=== PATIENT | male | born 1955 | race Caucasian/White ===

== ENCOUNTER 2016-12-23 12:39 | Day surgery (SDC) | payer OTHER ==
[2016-12-23 11:07] VITALS: BMI 34.2
--- NOTE | 2016-12-23 15:31 | HP ---
Satellite [facility] - Chief Complaint History of Present Illness: 61 year old male ESRD with left arm AV fistula that is deep and difficult to cannulate. History Source: Patient Limitations to Obtaining History: No Limitations - Past Medical History Allergies/Adverse Reactions: Allergies Allergy/AdvReac Type Severity Reaction Status Date / Time No Known Allergies Allergy Verified 12/23/16 13:22 Cardiovascular: Yes: CAD, HTN, Hyperlipdemia Hepatobiliary: Yes: Hepatitis B Renal/: Yes: Renal Inusuff Musculoskeletal: Yes: Chronic low back pain Endocrine: Yes: Diabetes Mellitus - Current Medications Current Medications: Home Medications Medication Instructions Recorded Hum Insulin NPH/Reg Insulin Hm 20 unit SQ BID 09/25/14 [Novolin 70-30 100 Unit/ml Vial] Insulin Aspart [Novolog] 0 unit SQ QID 09/25/14 Metoprolol Tartrate [Lopressor] 25 mg PO DAILY 09/25/14 Amlodipine Besylate 10 mg PO DAILY 12/20/16 Atorvastatin Ca [Lipitor] 40 mg PO HS 12/20/16 Enalapril Maleate [Vasotec -] 10 mg PO DAILY 12/20/16 Entecavir [Baraclude] 0.5 mg PO DAILY 12/20/16 Lisinopril [Zestril] 2.5 mg PO DAILY 12/20/16 Metformin HCl 500 mg PO BID 12/20/16 Metoprolol Succinate [Toprol Xl -] 25 mg PO DAILY 12/20/16 Simvastatin 20 mg PO DAILY 12/20/16 Sitagliptin Phosphate [Januvia] 100 mg PO DAILY 12/20/16 Aspirin [ASA -] 81 mg PO DAILY 12/23/16 Tenofovir Disoproxil Fumarate 12/23/16 Satellite Physical Exam - Physical Examination Vital Signs: Vital Signs Period Temp Pulse Resp BP Sys/Palafox Pulse Ox Last 24 Hr 98.3 F 70 16 127/70 98 General Appearance: Alert & Oriented x3 ENT: Clear Lung: Clear to auscultation Heart: Regular rate & rhythm Breasts: Soft Abdomen: Soft Extremities: No edema, Other (Left arm cephalic fistula with thrill.) Satellite Impression/Plan - Impression/Plan Impression: Left arm AV fistula with difficult cannulation due to depth. Operative Procedure: Revision of AV fistula - exteriorization. Date to be Performed: 12/23/16
[2016-12-23] MEDS ORDERED: MIDAZOLAM HCL 2 MG/2 ML SINGLE DOSE VIAL ONE ×4 (15:55→17:25)
[2016-12-23] MEDS ORDERED: PROPOFOL 20 ML ONE ×4 (16:10)
[2016-12-23] MEDS ORDERED: SUCCINYLCHOLINE CHLORIDE 200 MG/10 ML VIAL ONE ×2 (16:10)
[2016-12-23] MEDS ORDERED: POVIDONE-IODINE OINTMENT 10% - 28.4 GM TUBE ONE (17:40)
--- NOTE | 2016-12-23 18:04 | OP ---
Operative Note - Note: Operative Date: 12/23/16 Pre-Operative Diagnosis: Malfunction of AV fistula Operation: Revision AV fistula left arm exteriorization, 1st stage Findings: Patent AV fistula left upper arm with perivascular induration Post-Operative Diagnosis: Same as Pre-op Surgeon: Braeden Cason Anesthesiologist/TOASTER ELEMENT REPAIRER: Ruben Acuna Anesthesia: Fractional Estimated Blood Loss (mls): 50
[2016-12-23] MEDS ORDERED: ACETAMINOPHEN 325 MG TABLET (FP) PO PRN (18:05)
[2016-12-23] MEDS ORDERED: oxyCODONE HCL 5 MG TABLET PO PRN (18:05)
[2016-12-23] MEDS ORDERED: ONDANSETRON 4 MG/2 ML VIAL IVPUSH PRN (18:06)
[2016-12-23 19:04] VITALS: BP 121/61; PULSE 57
[2016-12-23 21:44] VITALS: TEMP 98.4
--- NOTE | 2016-12-24 13:11 | OP ---
DATE OF OPERATION: 12/23/2016 SURGEON: Braeden Wilkerson MD PROCEDURE: Revision of left arm atrioventricular fistula for exteriorization. PREOPERATIVE DIAGNOSIS: Malfunctioning atrioventricular fistula. POSTOPERATIVE DIAGNOSIS: Malfunctioning atrioventricular fistula. ANESTHESIA: Fractional. ANESTHESIOLOGIST: Armand OPERATIVE FINDINGS: The left brachial artery cephalic vein fistula was patent with a diameter of approximately 6 mm. The vein was between 8-10 mm deep to the skin and proved difficult to cannulate in dialysis. OPERATIVE PROCEDURE: Following routine patient identification with site and side verification, intravenous sedation was established. The left arm was prepped with ChloraPrep. Then 1% Xylocaine was infiltrated over the AV fistula on the distal aspect of the upper arm. The fistula had been mapped preoperatively with duplex imaging. Transverse incision was made and carried down to subcutaneous tissue using cautery for hemostasis. The vein was carefully dissected and had severe inflammatory tissue and induration around it. Several small holes in the vein required repair in order to gain proximal control. A 2nd incision was made just above the antecubital crease and the vein mobilized and secured with a Vessel Loops at this level. The vein was then occluded with the Vessel Loops and proximally with a vascular clamp, and the small holes in the vein were repaired with mattress sutures of 6-0 Prolene. The vein was then further dissected from both incisions with full mobilization of the segment between the 2 incisions as well a short distance proximally and distally. All side branches of the vein were ligated and divided. Subsequent tissues were then thinned with removal of fatty tissue so the vein could lie right under the skin. The tissue underneath the vein was closed with sutures of 3-0 Vicryl. Decision was made not to mobilize the entire vein up the arm as that would leave no area for access for dialysis. A second procedure may be necessary if there is still inadequate length for access. The skin incisions were then closed with interrupted suture of 3-0 Vicryl and skin radha. Sterile dressings were applied, and the patient was taken to the recovery room in stable condition. BRAEDEN WILKERSON M.D. [id number]
== END 2016-12-23 19:08 | disposition home or self-care (01) ==
LOC: JASU-SURG 12:39
PROVIDERS: ATTEND Surgery
PROC: 05WY07Z Revision of Autologous Tissue Substitute in Upper Vein, Open Approach (ICD-10-PCS; principal; 2016-12-23 15:00)
DX: T82.41XA Breakdown (mechanical) of vascular dialysis catheter, initial encounter (principal); Y83.9 Surgical procedure, unspecified as the cause of abnormal reaction of the patient, or of later complication, without mention of misadventure at the time of the procedure; Y92.9 Unspecified place or not applicable; E78.5 Hyperlipidemia, unspecified; I12.0 Hypertensive chronic kidney disease with stage 5 chronic kidney disease or end stage renal disease; E11.22 Type 2 diabetes mellitus with diabetic chronic kidney disease; N18.6 End stage renal disease; Z99.2 Dependence on renal dialysis; Z95.1 Presence of aortocoronary bypass graft
CPT/HCPCS: 36415; 84132; 94760

== ENCOUNTER 2017-05-24 18:50 | Inpatient (IN) | payer OTHER ==
--- NOTE | 2017-05-24 20:14 | PDOC ---
History of Present Illness - General History Source: Patient Exam Limitations: No Limitations - History of Present Illness Initial Comments: 05/24/17 20:15 The patient is a 61 with past medical history of hypertension and IDDM (non- compliant) and ESRD (on dialysis MWF) who presents to the ED with complaints of nausea and dizziness for the past three days. The patient states that his symptoms began when he last went to dialysis on Friday and subsequently began feeling weak and lightheaded since. He also notes that he has had intermittent diarrhea for the past two weeks in which he describes as watery stools. Additionally, the patient began to noticed an infected blister on his right toe in which appears infected and cyanotic. In the ED, the patient was also noted to be hypotensive. The patient had recently traveled to [place] and resulted in missing more dialysis. He denies any fevers or chills. He denies any shortness of breath or chest pain. He denies any urinary symptoms. Invasive Manager: Dr. Yokasta Monae <Daphney Felix - Last Filed: 05/24/17 22:26> - General History Source: Patient, Family Exam Limitations: No Limitations <Rick Vicente - Last Filed: 05/24/17 22:32> - General Chief Complaint: Lightheaded Stated Complaint: WEAKNESS,DIZZINESS,RT FOOT INFECTION Time Seen by Provider: 05/24/17 19:31 Past History <Daphney Felix - Last Filed: 05/24/17 22:26> - Past Medical History Anemia: No Asthma: No Cancer: No Cardiac Disorders: Yes (BYPASS SX, CARDIAC STENTS) CVA: No COPD: No CHF: No ((A "FEW yEARS AGO)) Dementia: No Diabetes: Yes GI Disorders: Yes (Hepatitis b) Disorders: No HTN: Yes Hypercholesterolemia: Yes 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) Seizures: No Thyroid Disease: No - Surgical History Abdominal Surgery: No Appendectomy: Yes Cardiac Surgery: Yes (4 bypass(A FEW YRS AGO)) Cholecystectomy: No Lung Surgery: No Neurologic Surgery: No Orthopedic Surgery: Yes (4 BACK SURGERIES, 3 NECK SURGERY) - Immunization History Immunization Up to Date: Yes - Suicide/Smoking/Psychosocial Hx Smoking Status: No Smoking History: Never smoked Have you smoked in the past 12 months: No Number of Cigarettes Smoked Daily: 0 Information on smoking cessation initiated: No Hx Alcohol Use: No Drug/Substance Use Hx: No Substance Use Type: None Hx Substance Use Treatment: No <Rick Vicente - Last Filed: 05/24/17 22:32> - Past Medical History Allergies/Adverse Reactions: Allergies Allergy/AdvReac Type Severity Reaction Status Date / Time No Known Allergies Allergy Verified 12/23/16 13:22 Home Medications: Ambulatory Orders Hum Insulin NPH/Reg Insulin Hm [Novolin 70-30 100 Unit/ml Vial] 20 unit SQ BID 09/25/14 Insulin Aspart [Novolog] 0 unit SQ QID 09/25/14 Metoprolol Tartrate [Lopressor] 25 mg PO DAILY 09/25/14 Amlodipine Besylate 10 mg PO DAILY 12/20/16 Atorvastatin Ca [Lipitor] 40 mg PO HS 12/20/16 Enalapril Maleate [Vasotec -] 10 mg PO DAILY 12/20/16 Entecavir [Baraclude] 0.5 mg PO DAILY 12/20/16 Lisinopril [Zestril] 2.5 mg PO DAILY 12/20/16 Metformin HCl 500 mg PO BID 12/20/16 Metoprolol Succinate [Toprol Xl -] 25 mg PO DAILY 12/20/16 Simvastatin 20 mg PO DAILY 12/20/16 Sitagliptin Phosphate [Januvia] 100 mg PO DAILY 12/20/16 Aspirin [ASA -] 81 mg PO DAILY 12/23/16 Tenofovir Disoproxil Fumarate 12/23/16 Review of Systems - Review of Systems Able to Perform ROS?: Yes Comments:: 05/24/17 20:16 GENERAL/CONSTITUTIONAL: Present: weakness No fever or chills. HEAD, EYES, EARS, NOSE AND THROAT: No change in vision. No ear pain or discharge. No sore throat. CARDIOVASCULAR: No chest pain or shortness of breath. RESPIRATORY: Present: cough No wheezing, or hemoptysis. GASTROINTESTINAL: Present: nausea, diarrhea No vomiting, or constipation. GENITOURINARY: No dysuria, frequency, or change in urination. MUSCULOSKELETAL: No joint or muscle swelling or pain. No neck or back pain. SKIN: Present: right toe infection No rash NEUROLOGIC: No headache, vertigo, loss of consciousness, or change in strength/ sensation. ENDOCRINE: No increased thirst. No abnormal weight change. HEMATOLOGIC/LYMPHATIC: No anemia, easy bleeding, or history of blood clots. ALLERGIC/IMMUNOLOGIC: No hives or skin allergy. All Other Systems: Reviewed and Negative <Daphney Felix - Last Filed: 05/24/17 22:26> *Physical Exam - Vital Signs Last Vital Signs Temp Pulse Resp BP Pulse Ox 98.8 F 88 17 107/79 97 05/24/17 18:50 05/24/17 18:50 05/24/17 18:50 05/24/17 18:50 05/24/17 18:50 - Physical Exam Comments: 05/24/17 20:17 GENERAL: Awake, alert, and fully oriented, in no acute distress HEAD: No signs of trauma EYES: PERRLA, EOMI, sclera anicteric, conjunctiva clear ENT: Auricles normal inspection, hearing grossly normal, nares patent, oropharynx clear without exudates. Moist mucosa NECK: Normal ROM, supple, no lymphadenopathy, JVD, or masses LUNGS: Breath sounds equal, clear to auscultation bilaterally. No wheezes, and no crackles HEART: Regular rate and rhythm, normal S1 and S2, no murmurs, rubs or gallops ABDOMEN: Soft, nontender, normoactive bowel sounds. No guarding, no rebound. No masses EXTREMITIES: Normal range of motion, no edema. No clubbing or cyanosis. No cords, erythema, or tenderness NEUROLOGICAL: Cranial nerves II through XII grossly intact. Normal speech, normal gait SKIN: Diffusely erythematous over the dorsum of the right foot. Cyanotic. Delayed capillary refill of the right 4th toe. Warm, Dry, normal turgor, no rashes or lesions noted. <Daphney Felix - Last Filed: 05/24/17 22:26> - Vital Signs Last Vital Signs Temp Pulse Resp BP Pulse Ox 98.8 F 88 17 107/79 97 05/24/17 18:50 05/24/17 18:50 05/24/17 18:50 05/24/17 18:50 05/24/17 18:50 <Rick Vicente - Last Filed: 05/24/17 22:32> Heart Score/ECG Review #1 ECG reviewed & interpreted by me at: 21:20 05/24/17 21:52 atrial fibrillation 122, nonspecific T wave abnormality, QTC 490 msec <Rick Vicente - Last Filed: 05/24/17 22:32> ED Treatment Course - LABORATORY CBC & Chemistry Diagram: 05/24/17 20:49 05/24/17 20:49 <Daphney Felix - Last Filed: 05/24/17 22:26> - LABORATORY CBC & Chemistry Diagram: 05/24/17 20:49 05/24/17 20:49 - RADIOLOGY Radiology Studies Ordered: Category Date Time Status CHEST X-RAY PORTABLE* [RAD] Stat Radiology 05/24/17 20:04 Ordered FOOT-RIGHT [RAD] Stat Radiology 05/24/17 20:06 Ordered <Rick Vicente - Last Filed: 05/24/17 22:32> Medical Decision Making - Medical Decision Making 05/24/17 22:26 10:15 Phone call placed to Yokasta Monae and left with answering service. Call returned promptly and case discussed, 10:20 Phone call placed to Dr. Moore and left with answering service. Call returned promptly and case discussed. 10:10 Microblog sent to hospitalist and call returned at 10:25. Case was discussed <Daphney Felix - Last Filed: 05/24/17 22:26> - Critical Care Time Total Critical Care Time (minutes): 35 Critical Care Statement: The care of this patient involved high complexity decision making to prevent further life threatening deterioration of the patient 's condition and/or to evaluate & treat vital organ system(s) failure or risk of failure. - Medical Decision Making 05/24/17 20:14 A portion of this note was documented by scribe services under my direction. I have reviewed the details of the note, within reason, and agree with the documentation with the following case summary and management plan written by me. Patient treated in the ED. Nursing notes are reviewed and incorporated into the medical decision-making. Vital signs reviewed. Peripheral IV access obtained by the nurse, laboratory studies are drawn and sent, reviewed and interpreted by myself. Vital Signs Temp Pulse Resp BP Pulse Ox 98.8 F 88 17 107/79 97 05/24/17 18:50 05/24/17 18:50 05/24/17 18:50 05/24/17 18:50 05/24/17 18:50 61 year old male with past medical history of diabetes, hypertension, dialysis on Friday, Friday, Friday presents to the emergency department for generalized weakness and lightheadedness. The patient last had dialysis 3 days ago. He recently was on medication to [place] and [facility] dialysis. However, since then he's been endorsing nausea but no fevers or chills. Denies any pain. Stated for the last one and half weeks been having occasional loose stools. Noticed today that he developed a cyanotic left fourth toe and erythema along the right foot. He has neuropathy and can't feel his feet. His noticed that he' s been feeling lightheaded despite not having dialysis and came to the ED. Patient's foot is concerning for cellulitis and osteomyelitisn sepsis protocol and give patient antibiotics. Will check potassium in regards for dialysis. Ultimately, the patient admitted to the hospital for further management. 05/24/17 22:31 CBC, BMP 05/24/17 20:49 05/24/17 20:49 CMP Sodium 132 mmol/L (136-145) L 05/24/17 20:49 Potassium 4.4 mmol/L (3.5-5.1) 05/24/17 20:49 Chloride 94 mmol/L (98-107) L D 05/24/17 20:49 Carbon Dioxide 22 mmol/L (21-32) D 05/24/17 20:49 Anion Gap 16 (8-16) 05/24/17 20:49 BUN 63 mg/dL (7-18) H 05/24/17 20:49 Creatinine 9.0 mg/dL (0.7-1.3) H* D 05/24/17 20:49 Creat Clearance w eGFR 5.98 (>60) 05/24/17 20:49 Random Glucose 139 mg/dL (74-106) H 05/24/17 20:49 Lactic Acid 1.7 mmol/L (0.4-2.0) 05/24/17 20:50 Calcium 7.5 mg/dL (8.5-10.1) L 05/24/17 20:49 Total Bilirubin 1.0 mg/dL (0.2-1.0) D 05/24/17 20:49 AST 18 U/L (15-37) 05/24/17 20:49 ALT 27 U/L (12-78) 05/24/17 20:49 Alkaline Phosphatase 88 U/L (45-117) D 05/24/17 20:49 Creatine Kinase 106 IU/L (39-308) 05/24/17 20:49 Troponin I 0.87 ng/ml (0.00-0.05) H* D 05/24/17 20:49 Total Protein 6.5 g/dl (6.4-8.2) 05/24/17 20:49 Albumin 2.6 g/dl (3.4-5.0) L 05/24/17 20:49 The patient's foot is the source for infection. Patient's white count is 25.2. Patient troponin is 0.87 though I suspect that this time this is likely secondary to demand ischemia. I had contacted the patient's computational geneticist Dr. Monae who will arrange for dialysis tonight. I also discussed the case with Dr. Moore for what appears to be new onset atrial fibrillation. Recommends a initiate IV heparin. Case discussed with hospital for special careist, we'll admit for telemetry admission. Case discussed in detail with admitting physician including history, physical exam and ancillary studies. Admitting physician has assumed care for the patient, will follow all pending diagnostics and will complete the evaluation and treatment. <Rick Vicente - Last Filed: 05/24/17 22:32> *DC/Admit/Observation/Transfer - Attestations Scribe Attestion: 05/24/17 20:31 Documentation prepared by Daphney Felix, acting as medical receptionist assistant for Rick Vicente MD. <Daphney Felix - Last Filed: 05/24/17 22:26> - Discharge Dispostion Admit: Yes <Rick Vicente - Last Filed: 05/24/17 22:32> Diagnosis at time of Disposition: Atrial fibrillation Qualifiers: Atrial fibrillation type: unspecified Qualified Code(s): I48.91 - Unspecified atrial fibrillation Sepsis Qualifiers: Sepsis type: sepsis due to unspecified organism Qualified Code(s): A41.9 - Sepsis, unspecified organism Cellulitis Qualifiers: Site of cellulitis: extremity Site of cellulitis of extremity: lower extremity Laterality: unspecified laterality Qualified Code(s): L03.119 - Cellulitis of unspecified part of limb - Discharge Dispostion Condition at time of disposition: Guarded
[2017-05-24] MEDS ORDERED: VANCOMYCIN 1,000 MG in DEXTROSE 5%-WATER - 250 ML IVPB ONE (20:15)
[2017-05-24] MEDS ORDERED: PIPERACILLIN/TAZOB 3.375 GM/50 ML PRE-DOCKED IVPB ONE (20:15)
[2017-05-24] MEDS ORDERED: PIPERACILLIN/TAZOB 3.375 GM 3.375 GM/50 ML BAG IVPB ONE (20:41)
[2017-05-24] MEDS ORDERED: VANCOMYCIN 1 GRAM (PRE-DOCKED) 1,000 MG/250 ML BAG IVPB ONE (20:41)
[2017-05-24 20:54] LABS: MCH 30.1 pg (25.7-33.7); MCHC 32.7 g/dl (32.0-35.9); MEAN CELL VOLUME 92.3 fl (80-96); MEAN PLT VOLUME 9.6 fl (7.5-11.1); PLATELET COUNT 204 K/MM3 (134-434); RDW 13.8 % (11.9-15.9); WHITE BLOOD COUNT 25.2 K/mm3 (4.0-10.0)
[2017-05-24 20:59] LABS: VENOUS PH 7.51 (7.32-7.42)
[2017-05-24 21:00] LABS: VENOUS BLOOD GAS HCO3 22.9 meq/L (19-25)
[2017-05-24 21:11] LABS: INR 1.44 (0.82-1.09); PROTHROMBIN TIME (PATIENT) 16.3 SEC (9.98-11.88)
[2017-05-24 21:14] LABS: ACTIVATED PTT 30.3 SECONDS (26.9-34.4)
[2017-05-24 21:24] LABS: ALBUMIN 2.6 g/dl (3.4-5.0); ANION GAP 16 (8-16); CALCIUM 7.5 mg/dL (8.5-10.1); CO2 22 mmol/L (21-32); GLUCOSE,RANDOM 139 mg/dL (74-106); SGOT/AST 18 U/L (15-37); SGPT/ALT 27 U/L (12-78); TOT PROT 6.5 g/dl (6.4-8.2)
[2017-05-24 21:38] LABS: ALK PHOS 88 U/L (45-117); CPK 106 IU/L (39-308)
[2017-05-24 21:40] LABS: TROPONIN I 0.87 ng/ml (0.00-0.05)
[2017-05-24 22:03] LABS: PLATELET ESTIMATE ADEQUATE; TOTAL CELLS COUNTED 100
[2017-05-24] MEDS ORDERED: HEPARIN NA (PORCINE) 5,000 UNITS/ML 1ML VIAL IVPUSH ONE (22:13)
[2017-05-24] MEDS ORDERED: HEPARIN INFUSION - 25,000 UNITS/500 ML INFUS.BAG IVPB ONE (23:00)
[2017-05-24] MEDS ORDERED: HEPARIN NA (PORCINE) 5,000 UNITS/ML 1ML VIAL ONE (23:00)
--- NOTE | 2017-05-24 23:19 | HP ---
CHIEF COMPLAINT: lightheadedness PCP: Dr. Hernandez? HISTORY OF PRESENT ILLNESS: 61 year old, unkept, non compliant male with a history of DM, CAD, HTN , ESRD on HD (MWF), presents to the ER with complaints of worsening lightheadedness and right 4th toe infection that he noticed starting today. Patient states the lightheadedness started after dialysis on Friday. Accompanied symptoms include nausea, vomiting and NBNB diarrhea for the past week. He recently traveled to [place], no sick contacts. Denies WEBB, blurry vision, chest pain, sob, edema. What provoked him to come to the hospital other that stated symptoms was his right 4th toe was purple, red, swollen, painful when ambulates. ER course was notable for: (1)leukocytosis; tachycardia; foot xray ordered; given 1x vanc/zosyn (2)ECG evident for new onset atrial fibrillation (3)Cr >9 Recent Travel: [place] PAST MEDICAL HISTORY: DM, Hepatitis B, ESRD, CAD, HTN PAST SURGICAL HISTORY: Social History: Smoking: Alcohol: Drugs: Family History: Allergies No Known Allergies Allergy (Verified 12/23/16 13:22) HOME MEDICATIONS: Home Medications Medication Instructions Recorded Hum Insulin NPH/Reg Insulin Hm 20 unit SQ BID 09/25/14 [Novolin 70-30 100 Unit/ml Vial] Insulin Aspart [Novolog] 0 unit SQ QID 09/25/14 Metoprolol Tartrate [Lopressor] 25 mg PO DAILY 09/25/14 Amlodipine Besylate 10 mg PO DAILY 12/20/16 Atorvastatin Ca [Lipitor] 40 mg PO HS 12/20/16 Enalapril Maleate [Vasotec -] 10 mg PO DAILY 12/20/16 Entecavir [Baraclude] 0.5 mg PO DAILY 12/20/16 Lisinopril [Zestril] 2.5 mg PO DAILY 12/20/16 Metformin HCl 500 mg PO BID 12/20/16 Metoprolol Succinate [Toprol Xl -] 25 mg PO DAILY 12/20/16 Simvastatin 20 mg PO DAILY 12/20/16 Sitagliptin Phosphate [Januvia] 100 mg PO DAILY 12/20/16 Aspirin [ASA -] 81 mg PO DAILY 12/23/16 Tenofovir Disoproxil Fumarate 12/23/16 REVIEW OF SYSTEMS CONSTITUTIONAL: Absent: fever, chills, diaphoresis, generalized weakness, malaise, loss of appetite, weight change HEENT: Absent: rhinorrhea, nasal congestion, throat pain, throat swelling, difficulty swallowing, mouth swelling, ear pain, eye pain, visual changes CARDIOVASCULAR: Absent: chest pain, syncope, palpitations, irregular heart rate, lightheadedness , peripheral edema RESPIRATORY: Absent: cough, shortness of breath, dyspnea with exertion, orthopnea, wheezing, stridor, hemoptysis GASTROINTESTINAL: Absent: abdominal pain, abdominal distension, nausea, vomiting, diarrhea, constipation, melena, hematochezia GENITOURINARY: Absent: dysuria, frequency, urgency, hesitancy, hematuria, flank pain, genital pain MUSCULOSKELETAL: Absent: myalgia, arthralgia, joint swelling, back pain, neck pain SKIN: Absent: rash, itching, pallor HEMATOLOGIC/IMMUNOLOGIC: Absent: easy bleeding, easy bruising, lymphadenopathy, frequent infections ENDOCRINE: Absent: unexplained weight gain, unexplained weight loss, heat intolerance, cold intolerance NEUROLOGIC: Absent: headache, focal weakness or paresthesias, dizziness, unsteady gait, seizure, mental status changes, bladder or bowel incontinence PSYCHIATRIC: Absent: anxiety, depression, suicidal or homicidal ideation, hallucinations. PHYSICAL EXAMINATION Vital Signs - 24 hr 05/24/17 18:50 Temperature 98.8 F Pulse Rate 88 Respiratory 17 Rate Blood Pressure 107/79 O2 Sat by Pulse 97 Oximetry (%) GENERAL: Awake, alert, and fully oriented, in no acute distress. LUNGS: Breath sounds equal, clear to auscultation bilaterally. No wheezes, and no crackles. No accessory muscle use. HEART: Regular rate and rhythm, normal S1 and S2 without murmur, rub or gallop. ABDOMEN: Soft, nontender, not distended, normoactive bowel sounds, no guarding, no rebound, no masses. No hepatomegaly or splenomegaly. MUSCULOSKELETAL: Normal range of motion at all joints. No bony deformities or tenderness. No CVA tenderness. UPPER EXTREMITIES: 2+ pulses, warm, well-perfused. No cyanosis. No clubbing. No peripheral edema. LOWER EXTREMITIES: 2+ pulses, warm, well-perfused. No calf tenderness. No peripheral edema. L foot planter ulcer 2x3cm x1cm deep purulent pus, mal odor; Rt 4th toe that is dusky in appearance, with surrounding erythema, edema, pedal pulses 2+, non painful to touch. NEUROLOGICAL: Cranial nerves II-XII intact. Normal speech. Normal gait. Laboratory Results - last 24 hr 05/24/17 05/24/17 05/24/17 20:40 20:49 20:49 WBC 25.2 H D RBC 3.46 L D Hgb 10.4 L D Hct 31.9 L D MCV 92.3 MCH 30.1 MCHC 32.7 RDW 13.8 Plt Count 204 MPV 9.6 Total Counted 100 Neutrophils % No Result Required. Neutrophils % (Manual) 87.0 H Lymphocytes % No Result Required. Lymphocytes % (Manual) 7.0 L Monocytes % (Manual) 5 Differential Comment Platelet Estimate Adequate Platelet Comment ESR PT with INR 16.30 H INR 1.44 H PTT (Actin FS) 30.3 VBG pH POC VBG pCO2 POC VBG pO2 Mixed VBG HCO3 Sodium Potassium Chloride Carbon Dioxide Anion Gap BUN Creatinine Creat Clearance w eGFR Random Glucose Lactic Acid Calcium Total Bilirubin AST ALT Alkaline Phosphatase Creatine Kinase Troponin I Total Protein Albumin Blood Type O POSITIVE Antibody Screen Negative 05/24/17 05/24/17 05/24/17 20:49 20:49 20:49 WBC RBC Hgb Hct MCV MCH MCHC RDW Plt Count MPV Total Counted Neutrophils % Neutrophils % (Manual) Lymphocytes % Lymphocytes % (Manual) Monocytes % (Manual) Differential Comment Platelet Estimate Platelet Comment ESR 107 H PT with INR INR PTT (Actin FS) VBG pH 7.51 H POC VBG pCO2 29.0 L POC VBG pO2 110.0 H Mixed VBG HCO3 22.9 Sodium 132 L Potassium 4.4 Chloride 94 L D Carbon Dioxide 22 D Anion Gap 16 BUN 63 H Creatinine 9.0 H* D Creat Clearance w eGFR 5.98 Random Glucose 139 H Lactic Acid Calcium 7.5 L Total Bilirubin 1.0 D AST 18 ALT 27 Alkaline Phosphatase 88 D Creatine Kinase 106 Troponin I 0.87 H* D Total Protein 6.5 Albumin 2.6 L Blood Type Antibody Screen 05/24/17 20:50 WBC RBC Hgb Hct MCV MCH MCHC RDW Plt Count MPV Total Counted Neutrophils % Neutrophils % (Manual) Lymphocytes % Lymphocytes % (Manual) Monocytes % (Manual) Differential Comment Platelet Estimate Platelet Comment ESR PT with INR INR PTT (Actin FS) VBG pH POC VBG pCO2 POC VBG pO2 Mixed VBG HCO3 Sodium Potassium Chloride Carbon Dioxide Anion Gap BUN Creatinine Creat Clearance w eGFR Random Glucose Lactic Acid 1.7 Calcium Total Bilirubin AST ALT Alkaline Phosphatase Creatine Kinase Troponin I Total Protein Albumin Blood Type Antibody Screen Current Medications Generic Name Dose Route Start Last Admin Trade Name Mariel PRN Reason Stop Dose Admin Aspirin 81 mg 05/25/17 10:00 Asa - PO DAILY [facility] Entecavir 0.5 mg 05/25/17 10:00 Baraclude - PO DAILY [facility] Heparin Sodium (Porcine) 25, 500 mls @ 20 mls/hr 05/24/17 22:15 000 unit/ Sodium Chloride IV TITR LORRI Protocol 1,000 UNIT/HR Insulin Aspart 1 vial 05/25/17 07:00 Novolog Vial Sliding Scale - SQ ACHS [facility] Protocol Metoprolol Tartrate 25 mg 05/25/17 10:00 Lopressor - PO DAILY [facility] ASSESSMENT/PLAN: 61 year old male, non compliant, presents with dizziness, found to be septic with new onset atrial fibrillation. #Sepsis secondary to diabetic foot infection; r/o osteomyelitis -IV access; trend cbc; lactic acid wnl, monitor bp -IV antibiotics vancomycin /zosyn; renal dose -f/u blood cultures -vasc doppler r/o PAD -esr, crp -ID/podiatry consult #New onset atrial fibrillation -[id number] 2 -start on heparin drip -metoprolol for rate control -echo -tsh -cardiac monitoring -cardio consulted #Diabetes mellitus type II: non compliant -patient not taking any home diabetes meds; he states as per his primary he is controlled -check hemoglobin A1C -Insulin SS -bgm ACHS #ESRD -HD MWF -set up to get HD tonight -renal consulted #elevated troponin mostly likely demand ischemia from sepsis and CKD; acute ACS less likely -trend troponin -ecg no sig st-t- wave changes -cardiac monitoring #hypertension: -metoprolol bid for rate -hold other antihypertensives for now due to borderline hypotension #coronary artery disease: -asa 81mg po daily -cont statin -hold anti hypertensive for now du to hypotension #hx of hepatits B: -on entecavir #N/V/D: resolved -most likely viral gastro enteritis -c diff -HIV rapid Fluid: restrict Diet: diabetic Electrolytes: hyponatremia Dispo: inpt tele Discussed case with Dr. Thompson Problem List - Problem (1) New onset a-fib Code(s): I48.91 - UNSPECIFIED ATRIAL FIBRILLATION (2) Atrial fibrillation Code(s): I48.91 - UNSPECIFIED ATRIAL FIBRILLATION Qualifiers: Atrial fibrillation type: unspecified Qualified Code(s): I48.91 - Unspecified atrial fibrillation (3) Cellulitis Code(s): L03.90 - CELLULITIS, UNSPECIFIED Qualifiers: Site of cellulitis: extremity Site of cellulitis of extremity: lower extremity Laterality: unspecified laterality Qualified Code(s): L03.119 - Cellulitis of unspecified part of limb (4) Sepsis Code(s): A41.9 - SEPSIS, UNSPECIFIED ORGANISM Qualifiers: Sepsis type: sepsis due to unspecified organism Qualified Code(s): A41.9 - Sepsis, unspecified organism (5) Chronic renal insufficiency Code(s): N18.9 - CHRONIC KIDNEY DISEASE, UNSPECIFIED Qualifiers: Chronic kidney disease stage: stage 4 (severe) Qualified Code(s): N18.4 - Chronic kidney disease, stage 4 (severe) (6) Diabetes Code(s): E11.9 - TYPE 2 DIABETES MELLITUS WITHOUT COMPLICATIONS Visit type - Emergency Visit Emergency Visit: Yes ED Registration Date: 05/24/17 Care time: The patient presented to the Emergency Department on the above date and was hospitalized for further evaluation of their emergent condition. - New Patient This patient is new to me today: Yes Date on this admission: 05/25/17 - Critical Care Critical Care patient: No
--- NOTE | 2017-05-24 23:42 | PN ---
Teaching Attending Note Name of Resident: Rochelle Valera ATTENDING PHYSICIAN STATEMENT I saw and evaluated the patient. Chart, data, imaging reviewed. I reviewed the resident's note and discussed the case with the resident. I agree with the resident's findings and plan as documented. SUBJECTIVE: 61 with HTN, IDDM (non-compliant), ESRD (on dialysis MWF) c/o dizziness for the past three days. The patient states that his symptoms began when he last went to dialysis on Friday and subsequently began feeling weak and lightheaded since. Pt with recent travel to [place] and caused him to miss some HD sessions. He is noted to have a cyanotic right 4th toe and a plantar ulcer of left foot. 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 Pt denied any fever or chills. He denied dysuria but did admit to some recent loose stools. OBJECTIVE: Last Vital Signs Temp Pulse Resp BP Pulse Ox 98.8 F 88 17 107/79 97 05/24/17 18:50 05/24/17 18:50 05/24/17 18:50 05/24/17 18:50 05/24/17 18:50 General- unkept, malodorous, NAD, nontoxic appearing HEENT atraumatic, normocephalic, moist mucous membranes Neck -supple, no masses CV- s1+s+ irregularly irregular Chest CTA b/l Abdomen soft, nt, no masses, obese Ext- cyanotic right 4th toe and a plantar ulcer of left foot, malodorous , yellowish discharge from foot ulcer Skin- no rashes noted Abnormal Lab Results 05/24/17 05/24/17 05/24/17 20:49 20:49 20:49 WBC 25.2 H D RBC 3.46 L D Hgb 10.4 L D Hct 31.9 L D Neutrophils % (Manual) 87.0 H Lymphocytes % (Manual) 7.0 L ESR PT with INR 16.30 H INR 1.44 H VBG pH 7.51 H POC VBG pCO2 29.0 L POC VBG pO2 110.0 H Sodium Chloride BUN Creatinine Random Glucose Calcium Troponin I Albumin 05/24/17 05/24/17 20:49 20:49 WBC RBC Hgb Hct Neutrophils % (Manual) Lymphocytes % (Manual) ESR 107 H PT with INR INR VBG pH POC VBG pCO2 POC VBG pO2 Sodium 132 L Chloride 94 L D BUN 63 H Creatinine 9.0 H* D Random Glucose 139 H Calcium 7.5 L Troponin I 0.87 H* D Albumin 2.6 L EKG -atrial fibrillation CXR- mild pulm edema, pulm vascula congestion ASSESSMENT AND PLAN: #Sepsis 2/2 to left foot ulcer vs right 4ht toe infection- foot r/o OM in both feet. Hemodynamically stable with lactate wnl. S/p vancomcyin and pip/tazo in the ER. -admit to telemtry (for new onset Afib) -blood cultures x2 -trend CBC -vancomycin and zosyn (dosed for HD) -ID consult -Podiatry consult for foot care and possible bone biopsy -ESR, CRP -xrays of feet b/l to evaluate for periosteal elevation -wound care to feet b/l #New onset Afib with RVR - may be secondary to sepsis. Should r/o thyroid dz, electrolyte derrangements, structural disorders, drug Induced e.g. +troponin may be 2/2 renal failure, sepsis, or demand ischemia. EKG without ST-T changes. Doubt ACS as pt with no chest pain or shortness of breath. CHADS VASC2 score is at least 2 and this warrants anticoagulation to prevent VTE event. -telemetry -check Mg -TSH -Transthoracic echo -urine toxicology -trend troponin -ASA 81mg daily -cardiology evaluation -heparin drip -metoprolol for rate control #ESRD with fluid need for urgent HD. Nephrology quality improvement consultant contact for urgent HD. Signs of pulmonary edema on CXR -renal consult -urgent HD -fluid restriciton -DVT ppx- patient will be started on heparin drip -diet0 renal, diabetic diet
[2017-05-25] MEDS: HEPARIN - 25,000 UNIT in SODIUM CHLORIDE 495 ML IV SCH ×2 (01:59→22:29)
[2017-05-25 04:41] VITALS: BMI 35.4
[2017-05-25 05:29] LABS: BASOPHIL 0.4 % (0-2.0); EOSINOPHIL 0.4 % (0-4.5); MCH 30.9 pg (25.7-33.7); MCHC 33.7 g/dl (32.0-35.9); MEAN CELL VOLUME 91.6 fl (80-96); MEAN PLT VOLUME 9.4 fl (7.5-11.1); NEUTROPHILS 88.9 % (42.8-82.8); PLATELET COUNT 202 K/MM3 (134-434); RDW 13.4 % (11.9-15.9); WHITE BLOOD COUNT 21.6 K/mm3 (4.0-10.0)
[2017-05-25 05:41] LABS: INR 1.59 (0.82-1.09)
[2017-05-25 05:52] LABS: ALBUMIN 2.4 g/dl (3.4-5.0); ANION GAP 12 (8-16); CALCIUM 7.3 mg/dL (8.5-10.1); CHOLESTEROL 144 mg/dL (50-200); CO2 26 mmol/L (21-32); GLUCOSE,RANDOM 148 mg/dL (74-106); MAGNESIUM 2.1 mg/dL (1.8-2.4); PHOSPHOROUS 4.2 mg/dL (2.5-4.9); SGOT/AST 17 U/L (15-37); SGPT/ALT 26 U/L (12-78); TOT PROT 5.9 g/dl (6.4-8.2)
[2017-05-25 06:08] LABS: ALK PHOS 78 U/L (45-117)
[2017-05-25 06:11] LABS: CREATININE 7.5 mg/dL (0.7-1.3); TROPONIN I 0.83 ng/ml (0.00-0.05)
[2017-05-25] MEDS: INSULIN SLIDING SCALE (NOVOLOG) 1 VIAL SQ SCH ×4 (06:18→22:39)
--- NOTE | 2017-05-25 08:26 | CON.CARD ---
Cardiology Consult (text) - Consultation Consultation Note: Cardiology Consult (Service ER) for Anum Dictated IMP: ESRD on HD DM LE osteo suspected CAD s/p CABG New onset AF, suspect PAF- now in sinus REC: 1. Telemetry 2. Echo 3. CHADS2 VASC = at least 3, merits AC. Continue heparin gtts and Metoprolol 4. ID work up as per PMD
[2017-05-25 08:48] LABS: ANION GAP 11 (8-16); CO2 28 mmol/L (21-32); CREATININE 4.7 mg/dL (0.7-1.3); GLUCOSE,RANDOM 151 mg/dL (74-106)
--- NOTE | 2017-05-25 09:13 | CONS ---
DATE OF CONSULTATION: 05/25/2017 Cardiology consultation in coverage for Raúl Rowan MD. REQUESTED BY: Rick Vicente MD in the emergency department for new-onset atrial fibrillation. The patient is a 61-year-old male with a past medical history of end-stage renal disease, on dialysis, diabetes, hypertension, coronary artery disease, status post coronary bypass several years ago. The patient was in [place] on Friday and, during dialysis, had low blood pressures and had chills. He returned and came to the emergency department for ongoing weakness, fatigue, and general malaise. In the ER, he was found to be febrile to 100.1 with leukocytosis, elevated ESR, and right lower extremity infection with concern for osteomyelitis of the right lower extremity digits. He was admitted because he was also found to be in rapid atrial fibrillation. Overnight, he converted to normal sinus rhythm with beta blockers. He denies previous history of paroxysmal atrial fibrillation or prior use of anticoagulants. He denies chest pain or shortness of breath, has not had a stress test since his coronary bypass surgery. 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 PAST MEDICAL HISTORY: As above; hepatitis B. He has no known drug allergies. HOME MEDICATIONS: As listed in the EMR, include metoprolol 25 mg daily; aspirin 81 mg daily; tenofovir/Januvia 100 mg daily; simvastatin 20 mg daily; Toprol-XL 25 mg daily; metformin 500 mg b.i.d.; lisinopril 2.5 daily; NovoLog; Lipitor 40 daily ; and amlodipine 10 mg daily. FAMILY HISTORY: Noncontributory. SOCIAL HISTORY: He denies smoking, denies alcohol. PHYSICAL EXAMINATION: General: Alert, oriented, in no distress. Vital Signs: Last temperature 98.8, pulse 99, sinus rhythm, blood pressure 130/ 77. Neck: No bruits. Heart: S1, S2 regular. Chest: Clear. Abdomen: Soft. Extremities: One-plus edema. Right lower extremity with cellulitis changes over the dorsum of the foot and 4th lower extremity digit with gangrenous changes. Blood cultures are pending. White count 21,000, hematocrit 29.6, platelets 202. INR 1.59. Sodium 135, potassium 3.5, creatinine 7.5, magnesium 2.2. Troponin 0.83 , CK 106. TSH is normal. Lactic acid 1.7. CRP pending. EKG showed atrial fibrillation at 122 beats/min with poor R-wave progression and nonspecific ST changes. IMPRESSION: 1. End-stage renal disease, on dialysis. 2. Diabetes. 3. Lower extremity infection, concern for osteomyelitis. 4. New-onset rapid atrial fibrillation, suspect paroxysmal atrial fibrillation. 5. Coronary artery disease, status post coronary artery bypass grafting. PLAN: 1. From the cardiac perspective, he has converted to sinus rhythm with beta blockers. CHADS2-VASc Score is at least 3; merits anticoagulation. Continue heparin drip. For rate control and suppression of atrial fibrillation, continue metoprolol at the current dose. 2. Lower extremity infection: Workup as per PMD and ID. Coverage for Dr. Rowan; Dr. Abarca dictating. Thank you for the consultation. BETZY ABARCA M.D. [id number] MTDD
[2017-05-25] MEDS: ASPIRIN 81 MG CHEWABLE TABLETS PO SCH (09:48)
[2017-05-25] MEDS: METOPROLOL TARTRATE 25 MG TABLET (FP) PO SCH ×2 (09:51→22:29)
[2017-05-25] MEDS ORDERED: METOPROLOL TARTRATE 25 MG TABLET (FP) PO SCH (10:00)
[2017-05-25] MEDS: HEPARIN NA (PORCINE) 5,000 UNITS/ML 1ML VIAL IVPUSH PRN ×2 (10:15→18:53)
--- NOTE | 2017-05-25 11:41 | PN ---
Teaching Attending Note Name of Resident: . Time of evaluation: 9:45 AM SUBJECTIVE: Patient seen and examined. Denies any foot pain, fevers or chills. NO dyspnea, chest pain, palpitations or dizziness. Upset about being in the hospital but no complaints. OBJECTIVE: Vital Signs Period Temp Pulse Resp BP Sys/Palafox Pulse Ox Last 24 Hr 98.8 F-100.1 F 88-101 16-20 107-145/67-88 97-98 Intake & Output 05/22/17 05/23/17 05/24/17 05/25/17 23:59 23:59 23:59 23:59 Intake Total 80 Balance 80 Weight 225 lb 233 lb 4.8 oz General: lying in bed in no acute distress CVS: S1S2 regular, rate controlled currently Chest: decreased effort, no rales or wheezing appreciated Abdomen: soft, obese, NT, positive bowel sounds extremities: Left foot plantar 2x3 cm ulcer 1 cm deep with purulent material and malodorous, Right foot swelling/erythema, but no warmth or tenderness, Right 4th toe dusky, (?hematoma with skin changes, no clearly suggestive of gangrenous findings), palpable DP pulses bilateral lower extremities. Home Medication List Medication Instructions Recorded Confirmed Type Hum Insulin NPH/Reg Insulin Hm 20 unit SQ BID 09/25/14 05/26/16 History [Novolin 70-30 100 Unit/ml Vial] Insulin Aspart [Novolog] 0 unit SQ QID 09/25/14 05/26/16 History Metoprolol Tartrate [Lopressor] 25 mg PO DAILY 09/25/14 12/23/16 History Amlodipine Besylate 10 mg PO DAILY 12/20/16 12/23/16 History Atorvastatin Ca [Lipitor] 40 mg PO HS 12/20/16 12/23/16 History Enalapril Maleate [Vasotec -] 10 mg PO DAILY 12/20/16 History Entecavir [Baraclude] 0.5 mg PO DAILY 12/20/16 12/23/16 History Lisinopril [Zestril] 2.5 mg PO DAILY 12/20/16 12/23/16 History Metformin HCl 500 mg PO BID 12/20/16 12/20/16 History Metoprolol Succinate [Toprol Xl -] 25 mg PO DAILY 12/20/16 12/23/16 History Simvastatin 20 mg PO DAILY 12/20/16 12/23/16 History Sitagliptin Phosphate [Januvia] 100 mg PO DAILY 12/20/16 12/23/16 History Aspirin [ASA -] 81 mg PO DAILY 12/23/16 12/23/16 History Tenofovir Disoproxil Fumarate 12/23/16 History Active Medications Generic Name Dose Route Start Last Admin Trade Name Aamirq PRN Reason Stop Dose Admin Aspirin 81 mg 05/25/17 10:00 05/25/17 09:48 Asa - PO 81 mg DAILY [facility] Administration Entecavir 0.5 mg 05/25/17 10:00 Baraclude - PO DAILY [facility] Heparin Sodium (Porcine) 5,000 unit 05/25/17 11:25 Heparin - IVPUSH PRN PRN Heparin Heparin Sodium (Porcine) 1,000 unit 05/25/17 11:30 Heparin - IVPUSH PRN PRN Heparin Heparin Sodium (Porcine) 25, 500 mls @ 20 mls/hr 05/24/17 22:15 05/25/17 10: 19 000 unit/ Sodium Chloride IV 1,100 unit/hr TITR LORRI 22 mls/hr Protocol Titration 1,000 UNIT/HR Insulin Aspart 1 vial 05/25/17 07:00 05/25/17 10:32 Novolog Vial Sliding Scale - SQ Not Given ACHS [facility] Protocol Metoprolol Tartrate 25 mg 05/25/17 10:00 05/25/17 09:51 Lopressor - PO 25 mg BID LORRI Administration Laboratory Results - last 24 hr 05/24/17 05/24/17 05/24/17 20:40 20:49 20:49 WBC 25.2 H D RBC 3.46 L D Hgb 10.4 L D Hct 31.9 L D MCV 92.3 MCH 30.1 MCHC 32.7 RDW 13.8 Plt Count 204 MPV 9.6 Total Counted 100 Neutrophils % No Result Required. Neutrophils % (Manual) 87.0 H Lymphocytes % No Result Required. Lymphocytes % (Manual) 7.0 L Monocytes % Monocytes % (Manual) 5 Eosinophils % Basophils % Differential Comment Platelet Estimate Adequate Platelet Comment ESR PT with INR 16.30 H INR 1.44 H PTT (Actin FS) 30.3 VBG pH POC VBG pCO2 POC VBG pO2 Mixed VBG HCO3 Sodium Potassium Chloride Carbon Dioxide Anion Gap BUN Creatinine Creat Clearance w eGFR POC Glucometer Random Glucose Hemoglobin A1c % Lactic Acid Calcium Phosphorus Magnesium Total Bilirubin AST ALT Alkaline Phosphatase Creatine Kinase Troponin I Total Protein Albumin Triglycerides Cholesterol Total LDL Cholesterol HDL Cholesterol TSH Blood Type O POSITIVE Antibody Screen Negative 05/24/17 05/24/17 05/24/17 20:49 20:49 20:49 WBC RBC Hgb Hct MCV MCH MCHC RDW Plt Count MPV Total Counted Neutrophils % Neutrophils % (Manual) Lymphocytes % Lymphocytes % (Manual) Monocytes % Monocytes % (Manual) Eosinophils % Basophils % Differential Comment Platelet Estimate Platelet Comment ESR 107 H PT with INR INR PTT (Actin FS) VBG pH 7.51 H POC VBG pCO2 29.0 L POC VBG pO2 110.0 H Mixed VBG HCO3 22.9 Sodium 132 L Potassium 4.4 Chloride 94 L D Carbon Dioxide 22 D Anion Gap 16 BUN 63 H Creatinine 9.0 H* D Creat Clearance w eGFR 5.98 POC Glucometer Random Glucose 139 H Hemoglobin A1c % Lactic Acid Calcium 7.5 L Phosphorus Magnesium Total Bilirubin 1.0 D AST 18 ALT 27 Alkaline Phosphatase 88 D Creatine Kinase 106 Troponin I 0.87 H* D Total Protein 6.5 Albumin 2.6 L Triglycerides Cholesterol Total LDL Cholesterol HDL Cholesterol TSH Blood Type Antibody Screen 05/24/17 05/25/17 05/25/17 20:50 05:10 05:10 WBC 21.6 H RBC 3.24 L Hgb 10.0 L Hct 29.6 L MCV 91.6 MCH 30.9 MCHC 33.7 RDW 13.4 Plt Count 202 MPV 9.4 Total Counted Neutrophils % 88.9 H D Neutrophils % (Manual) Lymphocytes % 5.8 L D Lymphocytes % (Manual) Monocytes % 4.5 Monocytes % (Manual) Eosinophils % 0.4 D Basophils % 0.4 Differential Comment Platelet Estimate Platelet Comment ESR PT with INR 18.00 H INR 1.59 H PTT (Actin FS) VBG pH POC VBG pCO2 POC VBG pO2 Mixed VBG HCO3 Sodium Potassium Chloride Carbon Dioxide Anion Gap BUN Creatinine Creat Clearance w eGFR POC Glucometer Random Glucose Hemoglobin A1c % Lactic Acid 1.7 Calcium Phosphorus Magnesium Total Bilirubin AST ALT Alkaline Phosphatase Creatine Kinase Troponin I Total Protein Albumin Triglycerides Cholesterol Total LDL Cholesterol HDL Cholesterol TSH Blood Type Antibody Screen 05/25/17 05/25/17 05/25/17 05:10 05:10 05:10 WBC RBC Hgb Hct MCV MCH MCHC RDW Plt Count MPV Total Counted Neutrophils % Neutrophils % (Manual) Lymphocytes % Lymphocytes % (Manual) Monocytes % Monocytes % (Manual) Eosinophils % Basophils % Differential Comment Platelet Estimate Platelet Comment ESR PT with INR INR PTT (Actin FS) VBG pH POC VBG pCO2 POC VBG pO2 Mixed VBG HCO3 Sodium 135 L Potassium 3.5 D Chloride 97 L Carbon Dioxide 26 Anion Gap 12 BUN 52 H Creatinine 7.5 H* Creat Clearance w eGFR 7.38 POC Glucometer Random Glucose 148 H Hemoglobin A1c % 8.6 H D Lactic Acid Calcium 7.3 L Phosphorus 4.2 Magnesium 2.1 D Total Bilirubin 1.0 AST 17 ALT 26 Alkaline Phosphatase 78 Creatine Kinase Troponin I 0.83 H* Total Protein 5.9 L Albumin 2.4 L Triglycerides 171 H Cholesterol 144 D Total LDL Cholesterol 99 HDL Cholesterol 16 L D TSH 1.39 Blood Type Antibody Screen 05/25/17 05/25/17 05/25/17 05:10 06:09 08:16 WBC RBC Hgb Hct MCV MCH MCHC RDW Plt Count MPV Total Counted Neutrophils % Neutrophils % (Manual) Lymphocytes % Lymphocytes % (Manual) Monocytes % Monocytes % (Manual) Eosinophils % Basophils % Differential Comment Platelet Estimate Platelet Comment ESR PT with INR INR PTT (Actin FS) 41.4 H D VBG pH POC VBG pCO2 POC VBG pO2 Mixed VBG HCO3 Sodium 136 Potassium 3.2 L Chloride 97 L Carbon Dioxide 28 Anion Gap 11 BUN 30 H D Creatinine 4.7 H D Creat Clearance w eGFR POC Glucometer 155.85208 Random Glucose 151 H Hemoglobin A1c % Lactic Acid Calcium 8.0 L Phosphorus Magnesium Total Bilirubin AST ALT Alkaline Phosphatase Creatine Kinase Troponin I Total Protein Albumin Triglycerides Cholesterol Total LDL Cholesterol HDL Cholesterol TSH Blood Type Antibody Screen Lower extremity arterial duplex - no hemodynamically significant stenosis ASSESSMENT AND PLAN: 61 yom with ESRD on HD, CAD, HTN, Hepatitis B (on entecavir but no recent follow UP), IDDM non compliant, admitted with CHF in the setting of missing HD, Afib with RVR, and sepsis diabetic foot with superimposed cellulitis/likely osteomyelitis. -Severe sepsis -Diabetic foot with cellulitis/LIkely acute osteomyelitis -New onset Afib with RVR, now reverted to NSR -CHF, from missing HD session/Rapid Afib/sepsis -IDDM, non compliant -Hepatitis on entecavir (no recent follow up). -Elevated troponin, suspect demand ischemia from sepsis/rapid Afib/Volume overload and underlying ESRD Plan: Zosyn/vancomycin in ED. Check random vanco levels. Surrounding cellulitis seems to have improved but persistent right 4th toe and left foot ulcer with purulent discharge. Podiatry consulted with Dr. Victor, discussed case with him, follow up for additonal recs. ID consulted with Dr. Queen (covering for Dr. Kothari), discussed case in detail, follow up. Send wound cultures form discharge from left foot ulcer discharge. Telemetry, close hemodynamic monitoring. Reverted to NSR, change lopressor to 25 mg BID, heparin drip for now. Check 2D echo. Repeat Tn overall unchanged. Contine ASA, check lipid panel. Resume home zocor 20 mg for now. s/p emergent HD in ED, Follow up nephrology recs. Resume low dose lisinopril 2.5 mg daily. ISS. Blood sugars 150s, resume home NPH and Januvia based on blood sugar readings. Diabetic diet. On entecavir, per patient for hepatitis B, but no recent follow up, plans to follow up with new GI, will retrieve more information tomorrow. Hep panel sent, HIV sent, will follow up. GIPPX on antibiotics DVTPPX on heparin drip. Plan discussed with patient in detail, all questions answered. Total time spent in patient care including discussion with patient, RN, ID, podiatry, and co-ordination of care 45 min.
--- NOTE | 2017-05-25 12:35 | CON.ID ---
Consult Reason for Consultation:: sepsis - History of Present Illness History of Present Illness: Pt seen and examined. Notes, labs, imaging results reviewed. This is 61 y.o. male with PMH of HTN, IDDM, ESRD on HD (M/W/F), CAD s/p bypass/stents, thoracic spinal fusion and Hepatitis B on Entecavir. He has not been taking his insulin because he states he was told he does not have DM. He states he last saw his PMD about 2 months ago. He has now been admitted for c/o nausea/dizziness/ weakness that began at his last HD 4 days ago. Pt found to have new onset of Atrial fibrillation. He states he was in [place] for a week recently. Denies fever but has been having chills and had had loose BMs on and off recently, but no abd pain. He was noted to have Rt foot erythema with blistering of toes with a dusky appearance and significantly elevated wbc count. Pt denies pain at the site and did not notice these changes until yesterday. He also is noted to have Lt plantar ulcer with drainage. Currently he is alert, afebrile, without acute distress. Has no other specific complaints. - History Source History Provided By: Patient Limitations to Obtaining History: No Limitations - Past Medical History Cardio/Vascular: Yes: CAD, HTN, Hyperlipdemia Pulmonary: Yes: COPD Gastrointestinal: No: Ascites, Cancer, Constipation, Crohn's Disease, Diverticulitis, Diverticulosis, Esophageal Varices, Gastritis, GERD, GI Bleed, Hemorrhoids, Hiatal Hernia, Inflamatory Bowel Disease, Irritable Bowel Disease, Pancreatitis, Peptic Ulcer Disease, Ulcerative Colitis, Other Hepatobiliary: Yes: Hepatitis B Renal/: Yes: Renal Failure, Renal Inusuff, Hemodialysis Infectious Disease: Yes: Other Musculoskeletal: Yes: Chronic low back pain, Other (back pain) Endocrine: Yes: Diabetes Mellitus - Past Surgical History Past Surgical History: Yes: Laminectomy, CABG - Smoking History Smoking history: Never smoked Have you smoked in the past 12 months: No Aproximately how many cigarettes per day: 0 - Social History ADL: Independent History of Recent Travel: Yes ([place] x 1 wk) Home Medications - Allergies Allergies/Adverse Reactions: Allergies Allergy/AdvReac Type Severity Reaction Status Date / Time No Known Allergies Allergy Verified 12/23/16 13:22 - Home Medications Home Medications: Ambulatory Orders Hum Insulin NPH/Reg Insulin Hm [Novolin 70-30 100 Unit/ml Vial] 20 unit SQ BID 09/25/14 Insulin Aspart [Novolog] 0 unit SQ QID 09/25/14 Metoprolol Tartrate [Lopressor] 25 mg PO DAILY 09/25/14 Amlodipine Besylate 10 mg PO DAILY 12/20/16 Atorvastatin Ca [Lipitor] 40 mg PO HS 12/20/16 Enalapril Maleate [Vasotec -] 10 mg PO DAILY 12/20/16 Entecavir [Baraclude] 0.5 mg PO DAILY 12/20/16 Lisinopril [Zestril] 2.5 mg PO DAILY 12/20/16 Metformin HCl 500 mg PO BID 12/20/16 Metoprolol Succinate [Toprol Xl -] 25 mg PO DAILY 12/20/16 Simvastatin 20 mg PO DAILY 12/20/16 Sitagliptin Phosphate [Januvia] 100 mg PO DAILY 12/20/16 Aspirin [ASA -] 81 mg PO DAILY 12/23/16 Tenofovir Disoproxil Fumarate 12/23/16 Family Disease History - Family Disease History Family Disease History: CA: Father, Mother (ovarian) Review of Systems - Review of Systems Constitutional: reports: Chills, Weakness Eyes: reports: No Symptoms HENT: reports: No Symptoms Neck: reports: No Symptoms Cardiovascular: reports: No Symptoms Respiratory: reports: No Symptoms Gastrointestinal: reports: Other (occasional loose stools, no abd pain) Integumentary: reports: Blister, Change in Color, Erythema Endocrine: reports: No Symptoms Physical Exam Vital Signs: Vital Signs Temperature 98.8 F 05/25/17 04:40 Pulse Rate 99 H 05/25/17 07:20 Respiratory Rate 18 05/25/17 07:20 Blood Pressure 130/77 05/25/17 07:20 O2 Sat by Pulse Oximetry (%) 98 05/25/17 05:21 Constitutional: Yes: No Distress, Calm HENT: Yes: Atraumatic Neck: Yes: Supple Cardiovascular: Yes: Regular Rate and Rhythm Respiratory: Yes: CTA Bilaterally Gastrointestinal: Yes: Normal Bowel Sounds, Soft Renal/: Yes: WNL Musculoskeletal: Yes: Back Pain Extremities: Yes: Erythema (Rt forefoot erythema, with blisters, dusky appearance of 3rd and 4th toe, denies pain Lt plantar ulcer with purulent drainage, no tenderness), Other (LUE AVG) Neurological: Yes: Alert, Oriented Psychiatric: Yes: Alert Labs: CBC, BMP 05/25/17 05:10 05/25/17 08:16 Imaging - Results X-ray: Report Reviewed Problem List - Problems (1) Atrial fibrillation Code(s): I48.91 - UNSPECIFIED ATRIAL FIBRILLATION Qualifiers: Atrial fibrillation type: unspecified Qualified Code(s): I48.91 - Unspecified atrial fibrillation (2) ESRD (end stage renal disease) on dialysis Code(s): N18.6 - END STAGE RENAL DISEASE; Z99.2 - DEPENDENCE ON RENAL DIALYSIS (3) Cellulitis Code(s): L03.90 - CELLULITIS, UNSPECIFIED Qualifiers: Site of cellulitis: extremity Site of cellulitis of extremity: lower extremity Laterality: unspecified laterality Qualified Code(s): L03.119 - Cellulitis of unspecified part of limb (4) Sepsis Code(s): A41.9 - SEPSIS, UNSPECIFIED ORGANISM Qualifiers: Sepsis type: sepsis due to unspecified organism Qualified Code(s): A41.9 - Sepsis, unspecified organism (5) Coronary arteriosclerosis Code(s): I25.10 - ATHSCL HEART DISEASE OF [place] CORONARY ARTERY W/O ANG PCTRS (6) Diabetes Code(s): E11.9 - TYPE 2 DIABETES MELLITUS WITHOUT COMPLICATIONS (7) Hypertension Code(s): I10 - ESSENTIAL (PRIMARY) HYPERTENSION Assessment/Plan Sepsis Leukocytosis Rt foot cellulitis/blistering Lt foot plantar ulcer Hepatitis B on Entecavir ?diarrhea -- continue Zosyn -- Vancomycin IV post HD on dialysis days -- order vancomycin level in am -- suggest MRI b/l foot if possible -- esr, crp, blood cultures -- Hepatitis B PCR, hepatitis panel -- HIV Ab -- wound cultures -- repeat cbc wound care monitor vitals cc time: 40 min
[2017-05-25] MEDS ORDERED: PIPERACILLIN/TAZOB 2.25 GM/50 ML PREMIX BAG IVPB SCH (13:00)
[2017-05-25] MEDS: PIPERACILLIN/TAZOB 2.25 GM 2.25 GM in DEXTROSE 5%-WATER - 50 ML IVPB SCH ×2 (14:55→18:53)
[2017-05-25] MEDS: ENTECAVIR 0.5 MG TABLET PO SCH (14:56)
--- NOTE | 2017-05-25 15:23 | CONSULT ---
Consult Consult Specialty:: Nephrology ( [facility]/ [facility]) Referred by:: Dr. Berg Reason for Consultation:: 61 y/o male admitted with sepsis. Has ESRD on HD - History of Present Illness History of Present Illness: 61 yom with ESRD on HD, CAD, HTN, Hepatitis B (on entecavir but no recent follow UP), IDDM non compliant, admitted with CHF in the setting of missing HD, Afib with RVR, and sepsis diabetic foot with superimposed cellulitis/likely osteomyelitis. The patient was in [place], and had felt ill during his last HD on Friday. He came in to the ER feeling very weak. Emergency HD was performed on admission for stabilizing the patient. He was hypotensive, and weak. The patient's compliance with dialysis was erratic and he used to cut his treatments very frequently. - Past Medical History Cardio/Vascular: Yes: CAD, HTN, Hyperlipdemia Pulmonary: Yes: COPD Gastrointestinal: No: Ascites, Cancer, Constipation, Crohn's Disease, Diverticulitis, Diverticulosis, Esophageal Varices, Gastritis, GERD, GI Bleed, Hemorrhoids, Hiatal Hernia, Inflamatory Bowel Disease, Irritable Bowel Disease, Pancreatitis, Peptic Ulcer Disease, Ulcerative Colitis, Other Hepatobiliary: Yes: Hepatitis B Renal/: Yes: Renal Failure, Renal Inusuff, Hemodialysis Infectious Disease: Yes: Other Musculoskeletal: Yes: Chronic low back pain, Other (back pain) Endocrine: Yes: Diabetes Mellitus - Past Surgical History Past Surgical History: Yes: Laminectomy, CABG - Alcohol/Substance Use Hx Alcohol Use: No - Smoking History Smoking history: Never smoked Have you smoked in the past 12 months: No Aproximately how many cigarettes per day: 0 - Social History ADL: Independent History of Recent Travel: Yes ([place] x 1 wk) Home Medications - Allergies Allergies/Adverse Reactions: Allergies Allergy/AdvReac Type Severity Reaction Status Date / Time No Known Allergies Allergy Verified 12/23/16 13:22 - Home Medications Home Medications: Ambulatory Orders Hum Insulin NPH/Reg Insulin Hm [Novolin 70-30 100 Unit/ml Vial] 20 unit SQ BID 09/25/14 Insulin Aspart [Novolog] 0 unit SQ QID 09/25/14 Metoprolol Tartrate [Lopressor] 25 mg PO DAILY 09/25/14 Amlodipine Besylate 10 mg PO DAILY 12/20/16 Atorvastatin Ca [Lipitor] 40 mg PO HS 12/20/16 Enalapril Maleate [Vasotec -] 10 mg PO DAILY 12/20/16 Entecavir [Baraclude] 0.5 mg PO DAILY 12/20/16 Lisinopril [Zestril] 2.5 mg PO DAILY 12/20/16 Metformin HCl 500 mg PO BID 12/20/16 Metoprolol Succinate [Toprol Xl -] 25 mg PO DAILY 12/20/16 Simvastatin 20 mg PO DAILY 12/20/16 Sitagliptin Phosphate [Januvia] 100 mg PO DAILY 12/20/16 Aspirin [ASA -] 81 mg PO DAILY 12/23/16 Tenofovir Disoproxil Fumarate 12/23/16 Family Disease History - Family Disease History Family Disease History: CA: Father, Mother (ovarian) Review of Systems - Review of Systems Constitutional: reports: Chills, Fever, Lethargy Cardiovascular: reports: Edema, Shortness of Breath Respiratory: reports: SOB, SOB on Exertion Gastrointestinal: reports: Bloating Musculoskeletal: reports: Back Pain Integumentary: reports: Blister, Change in Color Neurological: reports: Dizziness Physical Exam Vital Signs: Vital Signs Temperature 98.8 F 05/25/17 04:40 Pulse Rate 99 H 05/25/17 07:20 Respiratory Rate 18 05/25/17 07:20 Blood Pressure 130/77 05/25/17 07:20 O2 Sat by Pulse Oximetry (%) 98 05/25/17 05:21 Constitutional: Yes: [place], Mild Distress Eyes: Yes: Conjunctiva Clear HENT: Yes: Normocephalic Neck: Yes: Trachea Midline Cardiovascular: Yes: Pulse Irregular, S1, S2 Respiratory: Yes: CTA Bilaterally, Diminished Gastrointestinal: Yes: Normal Bowel Sounds, Soft Extremities: Yes: Cool, Cyanosis, Delayed Capillary Refill, Other (cellulitis, blister, ulceartion) Neurological: Yes: Confusion, Weakness Labs: CBC, BMP 05/25/17 05:10 05/25/17 08:16 Problem List - Problems (1) Atrial fibrillation Code(s): I48.91 - UNSPECIFIED ATRIAL FIBRILLATION Qualifiers: Atrial fibrillation type: unspecified Qualified Code(s): I48.91 - Unspecified atrial fibrillation (2) Cellulitis Code(s): L03.90 - CELLULITIS, UNSPECIFIED Qualifiers: Site of cellulitis: extremity Site of cellulitis of extremity: lower extremity Laterality: unspecified laterality Qualified Code(s): L03.119 - Cellulitis of unspecified part of limb (3) ESRD (end stage renal disease) on dialysis Code(s): N18.6 - END STAGE RENAL DISEASE; Z99.2 - DEPENDENCE ON RENAL DIALYSIS (4) Sepsis Code(s): A41.9 - SEPSIS, UNSPECIFIED ORGANISM Qualifiers: Sepsis type: sepsis due to unspecified organism Qualified Code(s): A41.9 - Sepsis, unspecified organism (5) Coronary arteriosclerosis Code(s): I25.10 - ATHSCL HEART DISEASE OF [place] CORONARY ARTERY W/O ANG PCTRS (6) Diabetes Code(s): E11.9 - TYPE 2 DIABETES MELLITUS WITHOUT COMPLICATIONS Assessment/Plan 61 yom with ESRD on HD, CAD, HTN, Hepatitis B (on entecavir but no recent follow UP), IDDM non compliant, admitted with CHF in the setting of missing HD, Afib with RVR, and sepsis diabetic foot with superimposed cellulitis/likely osteomyelitis. Multiple and complex problems... The patient was dialyzed emergently last night. for 2 1/2 hours. Next HD scheduled for tomorrow. Sepsis w/u in progress. Will need some sort of surgical intevention. The patient is known to dr. Cason. He will evaluate the patient to r/o Vascular ischemia. Discussed with Dr. Berg. Thank you. Will follow with you. Yokasta Savage MD
--- NOTE | 2017-05-25 17:17 | CONSULT ---
Consult - text type - Consultation Consultation Note: Podiatry Consultation: Seen/evaluated at bedside, NAD. Pain controlled to bilateral feet, denies F/V/N /C/SOB/CP. Has had temps to 100 F, currently afebrile. Has been non-compliant with his medications. PMHx: IDDM, HTN, CAD, ESRD on HD, Hep B Meds: noted ALL: NKMA SITA: R foot: pedal pulses 1/4 AT, non-palpable PT pulse, TG warm-warmer. Ischemic changes 3rd/4th digits with duskiness to 4th digit, gangrenous patch overlying dorsal midfoot, erythema to the lateral midfoot. No soft tissue crepitus. L foot: sub-2nd metatarsal ulcer, fibrotic base with hyperkeratotic borders, probing to bone, superficial purulence expressed, no soft tissue crepitus, no ascending cellulitis. WBC: 21.6 Blood Cx: pending B/L Foot XR: vascular calcifications, no soft tissue emphysema Imp: 51 year old non-compliant IDDM with bilateral foot ulcers, cellulitis R foot 1. IV abx per Infectious Disease 2. F/u Blood Cx 3. Rx MRI R foot to evaluate for deep space infection. Not sure if ischemia from deep collection vs. PVD. Recommend Vascular consultation. 4. Will follow. Thank you for the courtesy of this consultation. Rosaura Sheth DPM
[2017-05-25] MEDS ORDERED: PROMETHAZINE HCL 25 MG/1 ML VIAL IVPUSH ONE (22:13)
[2017-05-25] MEDS: ATORVASTATIN CA 10 MG TABLET (FP) PO SCH (22:28)
[2017-05-26] MEDS: PIPERACILLIN/TAZOB 2.25 GM 2.25 GM in DEXTROSE 5%-WATER - 50 ML IVPB SCH ×3 (01:31→18:04)
[2017-05-26] MEDS: HEPARIN NA (PORCINE) 5,000 UNITS/ML 1ML VIAL IVPUSH PRN (03:24)
[2017-05-26] MEDS ORDERED: ACETAMINOPHEN 1000 MG/100 ML VIAL (NON FORMULARY) IVPB ONE (05:30)
[2017-05-26] MEDS: INSULIN SLIDING SCALE (NOVOLOG) 1 VIAL SQ SCH ×4 (06:20→21:52)
[2017-05-26 06:28] LABS: BASOPHIL 0.5 % (0-2.0); EOSINOPHIL 0.3 % (0-4.5); MCH 30.7 pg (25.7-33.7); MCHC 33.2 g/dl (32.0-35.9); MEAN CELL VOLUME 92.7 fl (80-96); NEUTROPHILS 86.6 % (42.8-82.8); PLATELET COUNT 189 K/MM3 (134-434); RDW 13.7 % (11.9-15.9); WHITE BLOOD COUNT 23.4 K/mm3 (4.0-10.0)
[2017-05-26 08:02] LABS: ALBUMIN 2.2 g/dl (3.4-5.0); ANION GAP 11 (8-16); CALCIUM 7.1 mg/dL (8.5-10.1); CO2 26 mmol/L (21-32); GLUCOSE,RANDOM 128 mg/dL (74-106); SGOT/AST 18 U/L (15-37); SGPT/ALT 28 U/L (12-78)
[2017-05-26 08:10] LABS: ALK PHOS 79 U/L (45-117); BILIRUBIN,TOTAL 1.3 mg/dL (0.2-1.0)
--- NOTE | 2017-05-26 08:21 | PN ---
Physical Exam: SUBJECTIVE: Patient seen and examined. Patient was on dialysis, cut it short due to back pain. States he has no foot pain, no CP, no SOB. OBJECTIVE: Vital Signs Period Temp Pulse Resp BP Sys/Palafox Pulse Ox Last 24 Hr 98.0 F-100.4 F 74-87 18-22 105-146/61-77 98 GEN: AAOx3, NAD, Lying down visibly looks tired HEENT; PERRLA, EOMi CV: S1, S2, RRR LUNG: Grossly clear to asucultation bilaterally ABD; Soft, NT, ND MSK: No edema. L foot - submetatarsal ulcer, probing into bone, some purulent dc. R foot - ischemic changes to 3rd and 4th digit, gangrenous patch on the dorsum. Laboratory Last Values WBC 23.4 K/mm3 (4.0-10.0) H 05/26/17 05:00 RBC 3.27 M/mm3 (4.00-5.60) L 05/26/17 05:00 Hgb 10.1 GM/dL (11.7-16.9) L 05/26/17 05:00 Hct 30.3 % (35.4-49) L 05/26/17 05:00 MCV 92.7 fl (80-96) 05/26/17 05:00 MCH 30.7 pg (25.7-33.7) 05/26/17 05:00 MCHC 33.2 g/dl (32.0-35.9) 05/26/17 05:00 RDW 13.7 % (11.9-15.9) 05/26/17 05:00 Plt Count 189 K/MM3 (134-434) 05/26/17 05:00 MPV 10.0 fl (7.5-11.1) 05/26/17 05:00 Total Counted 100 05/24/17 20:49 Neutrophils % 86.6 % (42.8-82.8) H 05/26/17 05:00 Neutrophils % (Manual) 87.0 % (42.8-82.8) H 05/24/17 20:49 Lymphocytes % 5.6 % (8-40) L 05/26/17 05:00 Lymphocytes % (Manual) 7.0 % (8-40) L 05/24/17 20:49 Monocytes % 7.0 % (3.8-10.2) 05/26/17 05:00 Monocytes % (Manual) 5 % (3.8-10.2) 05/24/17 20:49 Eosinophils % 0.3 % (0-4.5) 05/26/17 05:00 Basophils % 0.5 % (0-2.0) 05/26/17 05:00 Differential Comment 05/24/17 20:49 Platelet Estimate Adequate 05/24/17 20:49 Platelet Comment 05/24/17 20:49 ESR 107 mm/hr (0-20) H 05/24/17 20:49 PT with INR 18.00 SEC (9.98-11.88) H 05/25/17 05:10 INR 1.59 (0.82-1.09) H 05/25/17 05:10 PTT (Actin FS) 51.3 SECONDS (26.9-34.4) H 05/26/17 08:00 VBG pH 7.51 (7.32-7.42) H 05/24/17 20:49 POC VBG pCO2 29.0 mmHg (38-52) L 05/24/17 20:49 POC VBG pO2 110.0 mmHg (28-48) H 05/24/17 20:49 Mixed VBG HCO3 22.9 meq/L (19-25) 05/24/17 20:49 Sodium 132 mmol/L (136-145) L 05/26/17 05:00 Potassium 3.9 mmol/L (3.5-5.1) D 05/26/17 05:00 Chloride 95 mmol/L (98-107) L 05/26/17 05:00 Carbon Dioxide 26 mmol/L (21-32) 05/26/17 05:00 Anion Gap 11 (8-16) 05/26/17 05:00 BUN 45 mg/dL (7-18) H D 05/26/17 05:00 Creatinine 7.5 mg/dL (0.7-1.3) H* D 05/26/17 05:00 Creat Clearance w eGFR 7.38 (>60) 05/26/17 05:00 POC Glucometer 163.90386 UNITS (80-120) 05/25/17 22:37 Random Glucose 128 mg/dL (74-106) H 05/26/17 05:00 Hemoglobin A1c % 8.6 % (4.8-6.0) H D 05/25/17 05:10 Lactic Acid 1.7 mmol/L (0.4-2.0) 05/24/17 20:50 Calcium 7.1 mg/dL (8.5-10.1) L 05/26/17 05:00 Phosphorus 4.2 mg/dL (2.5-4.9) 05/25/17 05:10 Magnesium 2.1 mg/dL (1.8-2.4) D 05/25/17 05:10 Total Bilirubin 1.3 mg/dL (0.2-1.0) H D 05/26/17 05:00 AST 18 U/L (15-37) 05/26/17 05:00 ALT 28 U/L (12-78) 05/26/17 05:00 Alkaline Phosphatase 79 U/L (45-117) 05/26/17 05:00 Creatine Kinase 106 IU/L (39-308) 05/24/17 20:49 Troponin I 0.60 ng/ml (0.00-0.05) H 05/25/17 12:00 C-Reactive Protein 25.9 MG/DL (0.00-0.3) H 05/24/17 20:49 Total Protein 6.0 g/dl (6.4-8.2) L 05/26/17 05:00 Albumin 2.2 g/dl (3.4-5.0) L 05/26/17 05:00 Triglycerides 171 mg/dL (35-160) H 05/25/17 05:10 Cholesterol 144 mg/dL (50-200) D 05/25/17 05:10 Total LDL Cholesterol 99 mg/dL (5-100) 05/25/17 05:10 HDL Cholesterol 16 mg/dL (40-60) L D 05/25/17 05:10 TSH 1.39 uIU/ml (0.358-3.74) 05/25/17 05:10 Random Vancomycin 7.979 ug/ml 05/25/17 12:40 Opiates Screen Negative ng/ml (CVFIUG=618) 05/26/17 06:45 Methadone Screen Negative ng/ml (GBZUCN=005) 05/26/17 06:45 Barbiturate Screen Negative ng/ml (DYXCTN=902) 05/26/17 06:45 Phencyclidine Screen Negative ng/ml (CUTOFF=25) 05/26/17 06:45 Ur Amphetamines Screen Negative ng/ml (MNHDOQ=636) 05/26/17 06:45 MDMA (Ecstasy) Screen Negative ng/ml (EMUUQN=832) 05/26/17 06:45 Benzodiazepines Screen Negative ng/ml (JYNSES=977) 05/26/17 06:45 Cocaine Screen Negative ng/ml (VSDYXE=299) 05/26/17 06:45 U Marijuana (THC) Screen Negative ng/ml (CUTOFF=50) 05/26/17 06:45 Hepatitis A Ab Total Negative (Negative) 05/25/17 08:16 Hep Bs Antigen Positive (Negative) H 05/25/17 08:16 Hep Bs Antibody Non reactive (.) 05/25/17 08:16 Hep B Core Total Ab Positive (Negative) H 05/25/17 08:16 Hepatitis C Antibody <0.1 s/co ratio (0.0-0.9) 05/25/17 08:16 HIV 1&2 Ag/Ab, 4th Gen Non reactive (Non Reactive) 05/25/17 05:10 Blood Type O POSITIVE 05/24/17 20:40 Antibody Screen Negative 05/24/17 20:40 Active Medications Generic Name Dose Route Start Last Admin Trade Name Freq PRN Reason Stop Dose Admin Aspirin 81 mg 05/25/17 10:00 05/26/17 14:02 Asa - PO 81 mg DAILY LORRI Administration Atorvastatin Calcium 10 mg 05/25/17 22:00 05/25/17 22:28 Lipitor - PO 10 mg HS LORRI Administration Entecavir 0.5 mg 05/25/17 10:00 05/25/17 14:56 Baraclude - PO Not Given DAILY LORRI Heparin Sodium (Porcine) 5,000 unit 05/25/17 11:25 05/25/17 18:53 Heparin - IVPUSH 5,000 unit PRN PRN Administration Heparin Heparin Sodium (Porcine) 1,000 unit 05/25/17 11:30 05/26/17 03:24 Heparin - IVPUSH 1,000 unit PRN PRN Administration Heparin Heparin Sodium (Porcine) 25, 500 mls @ 20 mls/hr 05/24/17 22:15 05/26/17 03: 25 000 unit/ Sodium Chloride IV 1,350 unit/hr TITR LORRI 27 mls/hr Protocol Titration 1,000 UNIT/HR Piperacillin Sod/Tazobactam 50 mls @ 100 mls/hr 05/25/17 13:00 05/26/17 13:57 Sod 2.25 gm/ Dextrose IVPB 100 mls/hr Q8H-IV LORRI Administration Insulin Aspart 1 vial 05/25/17 07:00 05/26/17 13:58 Novolog Vial Sliding Scale - SQ Not Given ACHS [facility] Protocol Lisinopril 2.5 mg 05/26/17 10:00 05/26/17 14:01 Prinivil PO 2.5 mg DAILY LORRI Administration Metoprolol Tartrate 25 mg 05/25/17 10:00 05/26/17 14:23 Lopressor - PO 25 mg BID LORRI Administration ASSESSMENT/PLAN: 61yo M with PMHx of ESRD on HD (MWF), CAD, HTN, Hep B (on entecavir), IDDM who is generally noncompliant with meds and intermittently with HD sessions. He was admitted with CHF, new onset Afib w/ RVR, and sepsis likely secondary to diabetic foot ulcer # Sepsis likely 2/2 Diabetic foot - L foot submetatarsal ulcer probing to bone, likely osteomyelitis, high ESR/ CRP. MRI pending. But currently on Vanc + Zosyn 2.25 Q8H. - R foot 3rd and 4th digit dusky appearance, could be 2/2 PAD. MIGUE pending. Vascular + Podiatry on board. But currently patient is refusing amputation. If + osteo on MRI and refusing amputation, will need PICC line and long-term antibiotics # New onset Afib w/ RVR - Now converted into NSR. Could have been secondary to infection vs fluid overload from missing HD sessions. On Lopressor 25mg BID. Since CHADSVASC >2, is on heparin gtt. Await 2D echo. Telemetry monitoring # ESRD - Presented in fluid overload from missing HD sessions, s/p urgent dialysis in ER Friday. Cut dialysis session short today due to back pain # Chronic Back Pain - Given heat packs if needs relief. Avoid NSAIDS and narcotics. # Elevated Troponins - likely mix between demand ischemia from sepsis/rapid Afib + poor clearance from ESRD; unlikely ACS, neg EKG no chest pain # IDDM - Hgb A1C 8.8, non compliant, BGMs ACHS + ISS # HTN - continue Lisinopril 2.5mg daily and Lopressor 25 BID now # Hepatitis B - will continue home tenofovir # Hx of HLD - continue Atorvastatin 10mg HS # Hx of CAD - continue home ASA 81 # FEN - No fluids, elec wnl, renal diet # PPx - Heparin gtt, no GI, PT not orderd # Dispo - Await MRI. If osteo, pt is refusing amputation, liekly needs [facility] antibiotics. d/w Dr Otis Cartwright MD - PGY1 Internal Medicine Visit type - Emergency Visit Emergency Visit: No - New Patient This patient is new to me today: Yes Date on this admission: 05/26/17 - Critical Care Critical Care patient: No - Discharge Referral Referred to [facility] Med P.C.: No
[2017-05-26 08:45] LABS: CREATININE 7.5 mg/dL (0.7-1.3)
[2017-05-26] MEDS ORDERED: EPOETIN ALFA 10,000 UNIT/1 ML VIAL SQ ONE (09:00)
--- NOTE | 2017-05-26 09:09 | CONSULT ---
Consult Consult Specialty:: Vascular Surgery - History of Present Illness History of Present Illness: 61 year old man with DM, ESRD on HD who is now admitted with wounds of both feet and worsening azotemia due to failure to have dialysis. He states he did not know he had any foot problems until he felt his sock was wet. He has no pain. - Past Medical History Cardio/Vascular: Yes: CAD, HTN, Hyperlipdemia Pulmonary: Yes: COPD Gastrointestinal: No: Ascites, Cancer, Constipation, Crohn's Disease, Diverticulitis, Diverticulosis, Esophageal Varices, Gastritis, GERD, GI Bleed, Hemorrhoids, Hiatal Hernia, Inflamatory Bowel Disease, Irritable Bowel Disease, Pancreatitis, Peptic Ulcer Disease, Ulcerative Colitis, Other Hepatobiliary: Yes: Hepatitis B Renal/: Yes: Renal Failure, Renal Inusuff, Hemodialysis Infectious Disease: Yes: Other Musculoskeletal: Yes: Chronic low back pain, Other (back pain) Endocrine: Yes: Diabetes Mellitus - Past Surgical History Past Surgical History: Yes: Laminectomy, CABG - Alcohol/Substance Use Hx Alcohol Use: No - Smoking History Smoking history: Never smoked Have you smoked in the past 12 months: No Aproximately how many cigarettes per day: 0 - Social History ADL: Independent History of Recent Travel: Yes ([place] x 1 wk) Home Medications - Allergies Allergies/Adverse Reactions: Allergies Allergy/AdvReac Type Severity Reaction Status Date / Time No Known Allergies Allergy Verified 12/23/16 13:22 - Home Medications Home Medications: Ambulatory Orders Metoprolol Succinate [Toprol Xl -] 25 mg PO DAILY 12/20/16 Aspirin [ASA -] 81 mg PO DAILY 12/23/16 Tenofovir Disoproxil Fumarate [Viread] 300 mg PO MOWEFR 05/26/17 Family Disease History - Family Disease History Family Disease History: CA: Father, Mother (ovarian) Physical Exam Vital Signs: Vital Signs Temperature 100.4 F H 05/26/17 06:00 Pulse Rate 74 05/26/17 06:00 Respiratory Rate 20 05/26/17 06:00 Blood Pressure 122/64 05/26/17 06:00 O2 Sat by Pulse Oximetry (%) 98 05/25/17 21:00 Peripheral Pulses WNL: No (No palpable pedal pulses) Wound/Incision: Yes: Other (Left plantar ulcer under 3rd met head, callused and necrotic base Right 4th toe and dorsal skin gangrene) Labs: CBC, BMP 05/26/17 05:00 05/26/17 05:00 Problem List - Problems (1) Cellulitis Assessment/Plan: Infected wound of right 3rd and 4th toes and left plantar ulcer. His feet appear to be ischemic, testing is in progress. If distal vasculature appears compromised an angiogram will be beeded. Code(s): L03.90 - CELLULITIS, UNSPECIFIED Qualifiers: Site of cellulitis: extremity Site of cellulitis of extremity: lower extremity Laterality: unspecified laterality Qualified Code(s): L03.119 - Cellulitis of unspecified part of limb
[2017-05-26 09:34] LABS: URINE MARIJUANA THC NEGATIVE ng/ml (CUTOFF=50)
--- NOTE | 2017-05-26 10:39 | PN ---
Progress Note, Physician History of Present Illness: 61 year old, unkept, non compliant male with a history of DM, CAD, HTN , ESRD on HD (MWF), presents to the ER with complaints of worsening lightheadedness and right 4th toe infection that he noticed starting today. Patient states the lightheadedness started after dialysis on Friday. Accompanied symptoms include nausea, vomiting and NBNB diarrhea for the past week. He recently traveled to [place], no sick contacts. Denies WEBB, blurry vision, chest pain, sob, edema. What provoked him to come to the hospital other that stated symptoms was his right 4th toe was purple, red, swollen, painful when ambulates. - Current Medication List Current Medications: Active Medications Aspirin (Asa -) 81 mg PO DAILY [facility] Last Admin: 05/25/17 09:48 Dose: 81 mg Atorvastatin Calcium (Lipitor -) 10 mg PO HS LORRI Last Admin: 05/25/17 22:28 Dose: 10 mg Entecavir (Baraclude -) 0.5 mg PO DAILY [facility] Last Admin: 05/25/17 14:56 Dose: Not Given Heparin Sodium (Porcine) (Heparin -) 5,000 unit IVPUSH PRN PRN PRN Reason: Heparin Last Admin: 05/25/17 18:53 Dose: 5,000 unit Heparin Sodium (Porcine) (Heparin -) 1,000 unit IVPUSH PRN PRN PRN Reason: Heparin Last Admin: 05/26/17 03:24 Dose: 1,000 unit Heparin Sodium (Porcine) 25, (000 unit/ Sodium Chloride) 500 mls @ 20 mls/hr IV TITR LORRI; 1,000 UNIT/HR PRN Reason: Protocol Last Titration: 05/26/17 03:25 Dose: 1,350 unit/hr, 27 mls/hr Piperacillin Sod/Tazobactam (Sod 2.25 gm/ Dextrose) 50 mls @ 100 mls/hr IVPB Q8H-IV LORRI Last Admin: 05/26/17 01:31 Dose: 100 mls/hr Insulin Aspart (Novolog Vial Sliding Scale -) 1 vial SQ ACHS LORRI PRN Reason: Protocol Last Admin: 05/26/17 06:20 Dose: Not Given Lisinopril (Prinivil) 2.5 mg PO DAILY [facility] Metoprolol Tartrate (Lopressor -) 25 mg PO BID [facility] Last Admin: 05/25/17 22:29 Dose: 25 mg - Objective Vital Signs: Vital Signs Temperature 100.4 F H 05/26/17 06:00 Pulse Rate 74 05/26/17 06:00 Respiratory Rate 20 05/26/17 06:00 Blood Pressure 122/64 05/26/17 06:00 O2 Sat by Pulse Oximetry (%) 98 05/25/17 21:00 Eyes: Yes: WNL, Conjunctiva Clear, EOM Intact HENT: Yes: WNL, Atraumatic, Normocephalic Neck: Yes: WNL, Supple, Trachea Midline Cardiovascular: Yes: WNL, Regular Rate and Rhythm Respiratory: Yes: WNL, Regular, CTA Bilaterally Gastrointestinal: Yes: WNL, Normal Bowel Sounds Genitourinary: Yes: WNL Musculoskeletal: Yes: WNL Extremities: Yes: Cyanosis, Other (surgical dressing over the wound) Edema: No Integumentary: Yes: WNL Neurological: Yes: WNL, Alert, Oriented ...Motor Strength: WNL Psychiatric: Yes: WNL Labs: CBC, BMP 05/26/17 05:00 05/26/17 05:00 INR, PTT INR 1.59 (0.82-1.09) H 05/25/17 05:10 Laboratory Tests 05/24/17 05/24/17 05/24/17 20:40 20:49 20:49 WBC 25.2 H D RBC 3.46 L D Hgb 10.4 L D Hct 31.9 L D MCV 92.3 MCH 30.1 MCHC 32.7 RDW 13.8 Plt Count 204 MPV 9.6 Total Counted 100 Neutrophils % No Result Required. Neutrophils % (Manual) 87.0 H Lymphocytes % No Result Required. Lymphocytes % (Manual) 7.0 L Monocytes % Monocytes % (Manual) 5 Eosinophils % Basophils % Differential Comment Platelet Estimate Adequate Platelet Comment ESR PT with INR 16.30 H INR 1.44 H PTT (Actin FS) 30.3 VBG pH POC VBG pCO2 POC VBG pO2 Mixed VBG HCO3 Sodium Potassium Chloride Carbon Dioxide Anion Gap BUN Creatinine Creat Clearance w eGFR POC Glucometer Random Glucose Hemoglobin A1c % Lactic Acid Calcium Phosphorus Magnesium Total Bilirubin AST ALT Alkaline Phosphatase Creatine Kinase Troponin I C-Reactive Protein Total Protein Albumin Triglycerides Cholesterol Total LDL Cholesterol HDL Cholesterol TSH Random Vancomycin Opiates Screen Methadone Screen Barbiturate Screen Phencyclidine Screen Ur Amphetamines Screen MDMA (Ecstasy) Screen Benzodiazepines Screen Cocaine Screen U Marijuana (THC) Screen Blood Type O POSITIVE Antibody Screen Negative 05/24/17 05/24/17 05/24/17 20:49 20:49 20:49 WBC RBC Hgb Hct MCV MCH MCHC RDW Plt Count MPV Total Counted Neutrophils % Neutrophils % (Manual) Lymphocytes % Lymphocytes % (Manual) Monocytes % Monocytes % (Manual) Eosinophils % Basophils % Differential Comment Platelet Estimate Platelet Comment ESR PT with INR INR PTT (Actin FS) VBG pH 7.51 H POC VBG pCO2 29.0 L POC VBG pO2 110.0 H Mixed VBG HCO3 22.9 Sodium 132 L Potassium 4.4 Chloride 94 L D Carbon Dioxide 22 D Anion Gap 16 BUN 63 H Creatinine 9.0 H* D Creat Clearance w eGFR 5.98 POC Glucometer Random Glucose 139 H Hemoglobin A1c % Lactic Acid Calcium 7.5 L Phosphorus Magnesium Total Bilirubin 1.0 D AST 18 ALT 27 Alkaline Phosphatase 88 D Creatine Kinase 106 Troponin I 0.87 H* D C-Reactive Protein 25.9 H Total Protein 6.5 Albumin 2.6 L Triglycerides Cholesterol Total LDL Cholesterol HDL Cholesterol TSH Random Vancomycin Opiates Screen Methadone Screen Barbiturate Screen Phencyclidine Screen Ur Amphetamines Screen MDMA (Ecstasy) Screen Benzodiazepines Screen Cocaine Screen U Marijuana (THC) Screen Blood Type Antibody Screen 05/24/17 05/24/17 05/25/17 20:49 20:50 05:10 WBC 21.6 H RBC 3.24 L Hgb 10.0 L Hct 29.6 L MCV 91.6 MCH 30.9 MCHC 33.7 RDW 13.4 Plt Count 202 MPV 9.4 Total Counted Neutrophils % 88.9 H D Neutrophils % (Manual) Lymphocytes % 5.8 L D Lymphocytes % (Manual) Monocytes % 4.5 Monocytes % (Manual) Eosinophils % 0.4 D Basophils % 0.4 Differential Comment Platelet Estimate Platelet Comment ESR 107 H PT with INR INR PTT (Actin FS) VBG pH POC VBG pCO2 POC VBG pO2 Mixed VBG HCO3 Sodium Potassium Chloride Carbon Dioxide Anion Gap BUN Creatinine Creat Clearance w eGFR POC Glucometer Random Glucose Hemoglobin A1c % Lactic Acid 1.7 Calcium Phosphorus Magnesium Total Bilirubin AST ALT Alkaline Phosphatase Creatine Kinase Troponin I C-Reactive Protein Total Protein Albumin Triglycerides Cholesterol Total LDL Cholesterol HDL Cholesterol TSH Random Vancomycin Opiates Screen Methadone Screen Barbiturate Screen Phencyclidine Screen Ur Amphetamines Screen MDMA (Ecstasy) Screen Benzodiazepines Screen Cocaine Screen U Marijuana (THC) Screen Blood Type Antibody Screen 05/25/17 05/25/17 05/25/17 05:10 05:10 05:10 WBC RBC Hgb Hct MCV MCH MCHC RDW Plt Count MPV Total Counted Neutrophils % Neutrophils % (Manual) Lymphocytes % Lymphocytes % (Manual) Monocytes % Monocytes % (Manual) Eosinophils % Basophils % Differential Comment Platelet Estimate Platelet Comment ESR PT with INR 18.00 H INR 1.59 H PTT (Actin FS) VBG pH POC VBG pCO2 POC VBG pO2 Mixed VBG HCO3 Sodium 135 L Potassium 3.5 D Chloride 97 L Carbon Dioxide 26 Anion Gap 12 BUN 52 H Creatinine 7.5 H* Creat Clearance w eGFR 7.38 POC Glucometer Random Glucose 148 H Hemoglobin A1c % 8.6 H D Lactic Acid Calcium 7.3 L Phosphorus 4.2 Magnesium 2.1 D Total Bilirubin 1.0 AST 17 ALT 26 Alkaline Phosphatase 78 Creatine Kinase Troponin I 0.83 H* C-Reactive Protein Total Protein 5.9 L Albumin 2.4 L Triglycerides 171 H Cholesterol 144 D Total LDL Cholesterol 99 HDL Cholesterol 16 L D TSH Random Vancomycin Opiates Screen Methadone Screen Barbiturate Screen Phencyclidine Screen Ur Amphetamines Screen MDMA (Ecstasy) Screen Benzodiazepines Screen Cocaine Screen U Marijuana (THC) Screen Blood Type Antibody Screen 05/25/17 05/25/17 05/25/17 05:10 05:10 06:09 WBC RBC Hgb Hct MCV MCH MCHC RDW Plt Count MPV Total Counted Neutrophils % Neutrophils % (Manual) Lymphocytes % Lymphocytes % (Manual) Monocytes % Monocytes % (Manual) Eosinophils % Basophils % Differential Comment Platelet Estimate Platelet Comment ESR PT with INR INR PTT (Actin FS) 41.4 H D VBG pH POC VBG pCO2 POC VBG pO2 Mixed VBG HCO3 Sodium Potassium Chloride Carbon Dioxide Anion Gap BUN Creatinine Creat Clearance w eGFR POC Glucometer 155.34974 Random Glucose Hemoglobin A1c % Lactic Acid Calcium Phosphorus Magnesium Total Bilirubin AST ALT Alkaline Phosphatase Creatine Kinase Troponin I C-Reactive Protein Total Protein Albumin Triglycerides Cholesterol Total LDL Cholesterol HDL Cholesterol TSH 1.39 Random Vancomycin Opiates Screen Methadone Screen Barbiturate Screen Phencyclidine Screen Ur Amphetamines Screen MDMA (Ecstasy) Screen Benzodiazepines Screen Cocaine Screen U Marijuana (THC) Screen Blood Type Antibody Screen 05/25/17 05/25/17 05/25/17 08:16 10:29 12:00 WBC RBC Hgb Hct MCV MCH MCHC RDW Plt Count MPV Total Counted Neutrophils % Neutrophils % (Manual) Lymphocytes % Lymphocytes % (Manual) Monocytes % Monocytes % (Manual) Eosinophils % Basophils % Differential Comment Platelet Estimate Platelet Comment ESR PT with INR INR PTT (Actin FS) VBG pH POC VBG pCO2 POC VBG pO2 Mixed VBG HCO3 Sodium 136 Potassium 3.2 L Chloride 97 L Carbon Dioxide 28 Anion Gap 11 BUN 30 H D Creatinine 4.7 H D Creat Clearance w eGFR POC Glucometer [phone] Random Glucose 151 H Hemoglobin A1c % Lactic Acid Calcium 8.0 L Phosphorus Magnesium Total Bilirubin AST ALT Alkaline Phosphatase Creatine Kinase Troponin I 0.60 H C-Reactive Protein Total Protein Albumin Triglycerides Cholesterol Total LDL Cholesterol HDL Cholesterol TSH Random Vancomycin Opiates Screen Methadone Screen Barbiturate Screen Phencyclidine Screen Ur Amphetamines Screen MDMA (Ecstasy) Screen Benzodiazepines Screen Cocaine Screen U Marijuana (THC) Screen Blood Type Antibody Screen 05/25/17 05/25/17 05/25/17 12:40 15:10 22:37 WBC RBC Hgb Hct MCV MCH MCHC RDW Plt Count MPV Total Counted Neutrophils % Neutrophils % (Manual) Lymphocytes % Lymphocytes % (Manual) Monocytes % Monocytes % (Manual) Eosinophils % Basophils % Differential Comment Platelet Estimate Platelet Comment ESR PT with INR INR PTT (Actin FS) 36.4 H VBG pH POC VBG pCO2 POC VBG pO2 Mixed VBG HCO3 Sodium Potassium Chloride Carbon Dioxide Anion Gap BUN Creatinine Creat Clearance w eGFR POC Glucometer 163.76367 Random Glucose Hemoglobin A1c % Lactic Acid Calcium Phosphorus Magnesium Total Bilirubin AST ALT Alkaline Phosphatase Creatine Kinase Troponin I C-Reactive Protein Total Protein Albumin Triglycerides Cholesterol Total LDL Cholesterol HDL Cholesterol TSH Random Vancomycin 7.979 Opiates Screen Methadone Screen Barbiturate Screen Phencyclidine Screen Ur Amphetamines Screen MDMA (Ecstasy) Screen Benzodiazepines Screen Cocaine Screen U Marijuana (THC) Screen Blood Type Antibody Screen 05/26/17 05/26/17 05/26/17 01:30 05:00 05:00 WBC 23.4 H RBC 3.27 L Hgb 10.1 L Hct 30.3 L MCV 92.7 MCH 30.7 MCHC 33.2 RDW 13.7 Plt Count 189 MPV 10.0 Total Counted Neutrophils % 86.6 H Neutrophils % (Manual) Lymphocytes % 5.6 L Lymphocytes % (Manual) Monocytes % 7.0 Monocytes % (Manual) Eosinophils % 0.3 Basophils % 0.5 Differential Comment Platelet Estimate Platelet Comment ESR PT with INR INR PTT (Actin FS) 46.4 H VBG pH POC VBG pCO2 POC VBG pO2 Mixed VBG HCO3 Sodium 132 L Potassium 3.9 D Chloride 95 L Carbon Dioxide 26 Anion Gap 11 BUN 45 H D Creatinine 7.5 H* D Creat Clearance w eGFR 7.38 POC Glucometer Random Glucose 128 H Hemoglobin A1c % Lactic Acid Calcium 7.1 L Phosphorus Magnesium Total Bilirubin 1.3 H D AST 18 ALT 28 Alkaline Phosphatase 79 Creatine Kinase Troponin I C-Reactive Protein Total Protein 6.0 L Albumin 2.2 L Triglycerides Cholesterol Total LDL Cholesterol HDL Cholesterol TSH Random Vancomycin Opiates Screen Methadone Screen Barbiturate Screen Phencyclidine Screen Ur Amphetamines Screen MDMA (Ecstasy) Screen Benzodiazepines Screen Cocaine Screen U Marijuana (THC) Screen Blood Type Antibody Screen 05/26/17 05/26/17 06:45 08:00 WBC RBC Hgb Hct MCV MCH MCHC RDW Plt Count MPV Total Counted Neutrophils % Neutrophils % (Manual) Lymphocytes % Lymphocytes % (Manual) Monocytes % Monocytes % (Manual) Eosinophils % Basophils % Differential Comment Platelet Estimate Platelet Comment ESR PT with INR INR PTT (Actin FS) 51.3 H VBG pH POC VBG pCO2 POC VBG pO2 Mixed VBG HCO3 Sodium Potassium Chloride Carbon Dioxide Anion Gap BUN Creatinine Creat Clearance w eGFR POC Glucometer Random Glucose Hemoglobin A1c % Lactic Acid Calcium Phosphorus Magnesium Total Bilirubin AST ALT Alkaline Phosphatase Creatine Kinase Troponin I C-Reactive Protein Total Protein Albumin Triglycerides Cholesterol Total LDL Cholesterol HDL Cholesterol TSH Random Vancomycin Opiates Screen Negative Methadone Screen Negative Barbiturate Screen Negative Phencyclidine Screen Negative Ur Amphetamines Screen Negative MDMA (Ecstasy) Screen Negative Benzodiazepines Screen Negative Cocaine Screen Negative U Marijuana (THC) Screen Negative Blood Type Antibody Screen Assessment/Plan IMP: ESRD on HD DM PAD LE osteo suspected CAD s/p CABG New onset AF, suspect PAF- now in sinus REC: 1.ICU monitoring 2. Echo 3. CHADS2 VASC = at least 3, merits AC. Continue heparin gtts and Metoprolol 4. ID work up as per PMD 5. ischemic w/u when stable 6. vascular surgery eval
[2017-05-26] MEDS ORDERED: PT OWN MED DRAWER 7, Y5N ONE ×2 (10:50→13:53)
--- NOTE | 2017-05-26 11:11 | PN ---
Progress Note (short form) - Note Progress Note: Renal Follow up for ESRD on HD Pt seen and examined on tele awake and alert s/p dialysis this am, pt cut treatment short because of chroinc lower back pain no sob, chest pain, abd pain, N/V/D Vital Signs Temperature 100.4 F H 05/26/17 06:00 Pulse Rate 74 05/26/17 06:00 Respiratory Rate 20 05/26/17 06:00 Blood Pressure 122/64 05/26/17 06:00 O2 Sat by Pulse Oximetry (%) 98 05/25/17 21:00 Intake & Output 05/23/17 05/24/17 05/25/17 05/26/17 23:59 23:59 23:59 23:59 Intake Total 686 596 Balance 686 596 Weight 102.058 kg 105.823 kg NAD awake and alert RRR, NO M/R CTA no rales or wheeze Trace LE edema Dressing on both feet CBC, BMP 05/26/17 05:00 05/26/17 05:00 Current Medications Aspirin (Asa -) 81 mg PO DAILY [facility] Last Admin: 05/25/17 09:48 Dose: 81 mg Atorvastatin Calcium (Lipitor -) 10 mg PO HS LORRI Last Admin: 05/25/17 22:28 Dose: 10 mg Entecavir (Baraclude -) 0.5 mg PO DAILY [facility] Last Admin: 05/25/17 14:56 Dose: Not Given Heparin Sodium (Porcine) (Heparin -) 5,000 unit IVPUSH PRN PRN PRN Reason: Heparin Last Admin: 05/25/17 18:53 Dose: 5,000 unit Heparin Sodium (Porcine) (Heparin -) 1,000 unit IVPUSH PRN PRN PRN Reason: Heparin Last Admin: 05/26/17 03:24 Dose: 1,000 unit Heparin Sodium (Porcine) 25, (000 unit/ Sodium Chloride) 500 mls @ 20 mls/hr IV TITR LORRI; 1,000 UNIT/HR PRN Reason: Protocol Last Titration: 05/26/17 03:25 Dose: 1,350 unit/hr, 27 mls/hr Piperacillin Sod/Tazobactam (Sod 2.25 gm/ Dextrose) 50 mls @ 100 mls/hr IVPB Q8H-IV [facility] Last Admin: 05/26/17 01:31 Dose: 100 mls/hr Insulin Aspart (Novolog Vial Sliding Scale -) 1 vial SQ ACHS L[facility]RI PRN Reason: Protocol Last Admin: 05/26/17 06:20 Dose: Not Given Lisinopril (Prinivil) 2.5 mg PO DAILY LORRI Metoprolol Tartrate (Lopressor -) 25 mg PO BID LORRI Last Admin: 05/25/17 22:29 Dose: 25 mg 61 yom with ESRD on HD, CAD, HTN, Hepatitis B (on entecavir but no recent follow UP), IDDM non compliant, admitted with CHF in the setting of missing HD, Afib with RVR, and sepsis diabetic foot with superimposed cellulitis/likely osteomyelitis. #ESRD on Hd with Fluid overload s/p urgent HD earlier this weekend and now s/p dialysis this am dose all meds for intermittent HD fluid restriction of 1.2 L daily Renal Diet will continue 3x weekly HD while inpatient #LE Wound/Leukocytosis Continue Abx as per ID Vasculr follow up Pain control #Anemia Continue MARK with HD no acute indication for transfusion at this time Thank you Jose Zavaleta DO
[2017-05-26] MEDS ORDERED: HEMOQUE TEST 1 EACH EACH ONE (11:54)
--- NOTE | 2017-05-26 13:01 | PN ---
Progress Note (short form) - Note Progress Note: Podiatry F/U: Seen/evaluated at bedside, NAD. Mild pain to R foot/ankle, continues to have temp. Patient evaluated by Dr. Cason from vascular sx today. SITA: R foot: dorsal lateral necrotic patches with periwound erythema and ascending cellulitis to the level of the ankle and lower leg. Moderate tenderness to palpation. Duskiness and ischemic blistering to the 3rd, 4th, 5th digits. No purulent drainage, (+) serous drainage, no soft tissue crepitus. L foot: sub-2nd metatarsal diabetic ulcer probing to bone, hyperkeratotic borders, (+) superficial purulence, no erythema, no ascending cellulitis, no soft tissue crepitus. WBC: 23.4 Blood Cx: no growth x 24 hrs R foot XR: no evidence of osteomyelitis, no evidence of subcutaneous emphysema Imp: 61 year old IDDM M with R foot gangrene and cellulitis 1. C/w IV abx per Infectious Disease 2. MRI pending 3. Will f/u MRI to evaluate any deep space infection R foot 4. Discussed case with Vascular, doppler pending. May need vascular intervention depending on further imaging. 5. I had a lengthy discussion with the patient regarding his condition. I have strongly recommended 4th and 5th ray amputation R foot given severity of infection. Risks and benefits were discussed at length, including worsening of infection, sepsis, loss of limb, even loss of life. Patient is currently adamantly refusing amputation at this point. Prognosis for salvage is guarded. I will discuss again with the patient. 6. Will follow. Rosaura Sheth DPM
--- NOTE | 2017-05-26 13:19 | PN ---
Teaching Attending Note Name of Resident: Pankaj Cartwright ATTENDING PHYSICIAN STATEMENT Time of evaluation: 9:25 AM I saw and evaluated the patient. I reviewed the resident's note and discussed the case with the resident. I agree with the resident's findings and plan as documented. SUBJECTIVE: Patient seen and examined. Some low back pain from the bed, no chest pain, palpitations, dyspnea or dizziness. Denies any pain in lower extremities currently. OBJECTIVE: Vital Signs Period Temp Pulse Resp BP Sys/Palafox Pulse Ox Last 24 Hr 98.3 F-100.4 F 67-87 16-22 91-146/51-77 98 Intake & Output 05/23/17 05/24/17 05/25/17 05/26/17 23:59 23:59 23:59 23:59 Intake Total 686 596 Balance 686 596 Weight 225 lb 233 lb 4.8 oz General: lying in bed in no acute distress CVS:S1S2 regular Chest; Decreased breath sounds at bases, positive air entry bilaterally Abdomen: soft, NT Extremities: R foot: dorsal lateral necrotic patches with periwound erythema and ascending cellulitis to the level of the ankle and lower leg. Moderate tenderness to palpation. Duskiness and ischemic blistering to the 3rd, 4th, 5th digits. No purulent drainage, (+) serous drainage, no soft tissue crepitus. L foot: sub-2nd metatarsal diabetic ulcer probing to bone, hyperkeratotic borders, (+) superficial purulence, no erythema, no ascending cellulitis, no soft tissue crepitus Home Medication List Medication Instructions Recorded Confirmed Type Hum Insulin NPH/Reg Insulin Hm 20 unit SQ BID 09/25/14 05/26/16 History [Novolin 70-30 100 Unit/ml Vial] Insulin Aspart [Novolog] 0 unit SQ QID 09/25/14 05/26/16 History Metoprolol Tartrate [Lopressor] 25 mg PO DAILY 09/25/14 12/23/16 History Amlodipine Besylate 10 mg PO DAILY 12/20/16 12/23/16 History Atorvastatin Ca [Lipitor] 40 mg PO HS 12/20/16 12/23/16 History Enalapril Maleate [Vasotec -] 10 mg PO DAILY 12/20/16 History Entecavir [Baraclude] 0.5 mg PO DAILY 12/20/16 12/23/16 History Lisinopril [Zestril] 2.5 mg PO DAILY 12/20/16 12/23/16 History Metformin HCl 500 mg PO BID 12/20/16 12/20/16 History Metoprolol Succinate [Toprol Xl -] 25 mg PO DAILY 12/20/16 12/23/16 History Simvastatin 20 mg PO DAILY 12/20/16 12/23/16 History Sitagliptin Phosphate [Januvia] 100 mg PO DAILY 12/20/16 12/23/16 History Aspirin [ASA -] 81 mg PO DAILY 12/23/16 12/23/16 History Tenofovir Disoproxil Fumarate 12/23/16 History Active Medications Generic Name Dose Route Start Last Admin Trade Name Freq PRN Reason Stop Dose Admin Aspirin 81 mg 05/25/17 10:00 05/25/17 09:48 Asa - PO 81 mg DAILY [facility] Administration Atorvastatin Calcium 10 mg 05/25/17 22:00 05/25/17 22:28 Lipitor - PO 10 mg HS LORRI Administration Entecavir 0.5 mg 05/25/17 10:00 05/25/17 14:56 Baraclude - PO Not Given DAILY [facility] Heparin Sodium (Porcine) 5,000 unit 05/25/17 11:25 05/25/17 18:53 Heparin - IVPUSH 5,000 unit PRN PRN Administration Heparin Heparin Sodium (Porcine) 1,000 unit 05/25/17 11:30 05/26/17 03:24 Heparin - IVPUSH 1,000 unit PRN PRN Administration Heparin Heparin Sodium (Porcine) 25, 500 mls @ 20 mls/hr 05/24/17 22:15 05/26/17 03: 25 000 unit/ Sodium Chloride IV 1,350 unit/hr TITR LORRI 27 mls/hr Protocol Titration 1,000 UNIT/HR Piperacillin Sod/Tazobactam 50 mls @ 100 mls/hr 05/25/17 13:00 05/26/17 01:31 Sod 2.25 gm/ Dextrose IVPB 100 mls/hr Q8H-IV [facility] Administration Insulin Aspart 1 vial 05/25/17 07:00 05/26/17 06:20 Novolog Vial Sliding Scale - SQ Not Given ACHS [facility] Protocol Lisinopril 2.5 mg 05/26/17 10:00 Prinivil PO DAILY [facility] Metoprolol Tartrate 25 mg 05/25/17 10:00 05/25/17 22:29 Lopressor - PO 25 mg BID [facility] Administration Laboratory Results - last 24 hr 05/25/17 05/25/17 05/25/17 12:00 12:40 15:10 WBC RBC Hgb Hct MCV MCH MCHC RDW Plt Count MPV Neutrophils % Lymphocytes % Monocytes % Eosinophils % Basophils % PTT (Actin FS) 36.4 H Sodium Potassium Chloride Carbon Dioxide Anion Gap BUN Creatinine Creat Clearance w eGFR POC Glucometer Random Glucose Calcium Total Bilirubin AST ALT Alkaline Phosphatase Troponin I 0.60 H Total Protein Albumin Random Vancomycin 7.979 Opiates Screen Methadone Screen Barbiturate Screen Phencyclidine Screen Ur Amphetamines Screen MDMA (Ecstasy) Screen Benzodiazepines Screen Cocaine Screen U Marijuana (THC) Screen 05/25/17 05/25/17 05/26/17 18:32 22:37 01:30 WBC RBC Hgb Hct MCV MCH MCHC RDW Plt Count MPV Neutrophils % Lymphocytes % Monocytes % Eosinophils % Basophils % PTT (Actin FS) 46.4 H Sodium Potassium Chloride Carbon Dioxide Anion Gap BUN Creatinine Creat Clearance w eGFR POC Glucometer 153.51238 163.78589 Random Glucose Calcium Total Bilirubin AST ALT Alkaline Phosphatase Troponin I Total Protein Albumin Random Vancomycin Opiates Screen Methadone Screen Barbiturate Screen Phencyclidine Screen Ur Amphetamines Screen MDMA (Ecstasy) Screen Benzodiazepines Screen Cocaine Screen U Marijuana (THC) Screen 05/26/17 05/26/17 05/26/17 05:00 05:00 06:45 WBC 23.4 H RBC 3.27 L Hgb 10.1 L Hct 30.3 L MCV 92.7 MCH 30.7 MCHC 33.2 RDW 13.7 Plt Count 189 MPV 10.0 Neutrophils % 86.6 H Lymphocytes % 5.6 L Monocytes % 7.0 Eosinophils % 0.3 Basophils % 0.5 PTT (Actin FS) Sodium 132 L Potassium 3.9 D Chloride 95 L Carbon Dioxide 26 Anion Gap 11 BUN 45 H D Creatinine 7.5 H* D Creat Clearance w eGFR 7.38 POC Glucometer Random Glucose 128 H Calcium 7.1 L Total Bilirubin 1.3 H D AST 18 ALT 28 Alkaline Phosphatase 79 Troponin I Total Protein 6.0 L Albumin 2.2 L Random Vancomycin Opiates Screen Negative Methadone Screen Negative Barbiturate Screen Negative Phencyclidine Screen Negative Ur Amphetamines Screen Negative MDMA (Ecstasy) Screen Negative Benzodiazepines Screen Negative Cocaine Screen Negative U Marijuana (THC) Screen Negative 05/26/17 08:00 WBC RBC Hgb Hct MCV MCH MCHC RDW Plt Count MPV Neutrophils % Lymphocytes % Monocytes % Eosinophils % Basophils % PTT (Actin FS) 51.3 H Sodium Potassium Chloride Carbon Dioxide Anion Gap BUN Creatinine Creat Clearance w eGFR POC Glucometer Random Glucose Calcium Total Bilirubin AST ALT Alkaline Phosphatase Troponin I Total Protein Albumin Random Vancomycin Opiates Screen Methadone Screen Barbiturate Screen Phencyclidine Screen Ur Amphetamines Screen MDMA (Ecstasy) Screen Benzodiazepines Screen Cocaine Screen U Marijuana (THC) Screen Microbiology 05/24/17 20:49 Blood - Peripheral Venous Blood Culture - Preliminary NO GROWTH OBTAINED AFTER 24 HOURS, INCUBATION TO CONTINUE FOR 4 DAYS. 05/24/17 20:40 Blood - Peripheral Venous Blood Culture - Preliminary NO GROWTH OBTAINED AFTER 24 HOURS, INCUBATION TO CONTINUE FOR 4 DAYS. MRI LE pending. ASSESSMENT AND PLAN: 61 yom with ESRD on HD, CAD, HTN, Hepatitis B (on entecavir but no recent follow UP), IDDM non compliant, admitted with CHF in the setting of missing HD, Afib with RVR, and sepsis diabetic foot with superimposed cellulitis/likely osteomyelitis. -Severe sepsis -Diabetic foot with cellulitis/Necrosis/Acute osteomyelitis -New onset Afib with RVR, now reverted to NSR -CHF, from missing HD session/Rapid Afib/sepsis -IDDM, non compliant -Hepatitis on entecavir (no recent follow up). -Elevated troponin, suspect demand ischemia from sepsis/rapid Afib/Volume overload and underlying ESRD Plan: ID/podiatry input appreciated. Zosyn, vanco renal dosing, MRI LE. Podiatry input noted, currently declining surgery, will follow up. Telemetry, close hemodynamic monitoring. Reverted to NSR, Continue lopressor to 25 mg BID, heparin drip for now. Check 2D echo. cardiology input noted. Repeat Tn overall unchanged. Contine ASA,Lipid panel noted. Lipitor 10 mg hs ( no zocor here). s/p emergent HD in ED, Follow up nephrology recs. Continue low dose lisinopril 2.5 mg daily as BP tolerates. ISS. Blood sugars 150s, resume home NPH and Januvia based on blood sugar readings. Diabetic diet. On entecavir, per patient for hepatitis B, but no recent follow up, plans to follow up with new GI, will retrieve more information as needed Hep panel sent, HIV sent, will follow up. GIPPX on antibiotics DVTPPX on heparin drip. Plan discussed with patient in detail, all questions answered.
[2017-05-26] MEDS: ENTECAVIR 0.5 MG TABLET PO SCH ×2 (13:56→23:09)
[2017-05-26] MEDS: LISINOPRIL 5 MG TABLET (FP) PO SCH (14:01)
[2017-05-26] MEDS: ASPIRIN 81 MG CHEWABLE TABLETS PO SCH (14:02)
[2017-05-26] MEDS: METOPROLOL TARTRATE 25 MG TABLET (FP) PO SCH ×2 (14:23→21:52)
--- NOTE | 2017-05-26 14:35 | EKG ---
Test Reason : Blood Pressure : / mmHG Vent. Rate : 122 BPM Atrial Rate : 096 BPM P-R Int : 000 ms QRS Dur : 100 ms QT Int : 344 ms P-R-T Axes : 000 -04 -81 degrees QTc Int : 490 ms ATRIAL FIBRILLATION WITH RAPID VENTRICULAR RESPONSE NONSPECIFIC T WAVE ABNORMALITY ABNORMAL ECG WHEN COMPARED WITH ECG OF 07-DEC-2016 11:10, ATRIAL FIBRILLATION HAS REPLACED SINUS RHYTHM VENT. RATE HAS INCREASED BY 51 BPM T WAVE VARIATION Confirmed by ZAYNAB HAYDEN MD ([id number]) on 05/26/2017 2:35:46 PM Referred By: Confirmed By:ZAYNAB HAYDEN MD
--- NOTE | 2017-05-26 14:54 | MSN ---
Progress Note (short form) - Note Progress Note: SUBJECTIVE: Pt seen and examined at bedside. He looked well this morning and not in any acute distress. Complained of some pain in the low back, possibly due to lying in bed. Pt reported having watery stools for the past 2 weeks, with the last watery BM on 05/24. Refused any pain in the lower extremities. Denies any CP, SOB, palpitations, WEBB, dizziness, fever, chills, N/V, constipation, dysuria, frequency, or urgency. OBJECTIVE Last Vital Signs Temp Pulse Resp BP Pulse Ox 98.3 F 68 18 108/62 98 05/26/17 13:53 05/26/17 12:55 05/26/17 12:55 05/26/17 12:55 05/25/17 21:00 GEN: AOX3, NAD HEENT: PERRLA, EOMI CV: RRR S1 S2 No MRG LUNG: CTA b/l ABD: +bowel sounds, soft, ND, NT MSK: L foot - 2 X 2 cm, 1 cm deep diabetic ulcer probing to the bone on the plantar surface in between the 2nd and 3rd metatarsal; some purulent discharge, no erythema; sensation intact; pulses unable to palpate due to dressing R foot - gangrenous patches with surrounding erythema on the dorsolateral surface; mid-3rd, 4th, and slight 5th digit cyanotic and ischemic changes; no purulent discharge; pulses and sensation intact; not tender to palpation NEURO: CN II-XII grossly intact Laboratory Last Values WBC 23.4 K/mm3 (4.0-10.0) H 05/26/17 05:00 RBC 3.27 M/mm3 (4.00-5.60) L 05/26/17 05:00 Hgb 10.1 GM/dL (11.7-16.9) L 05/26/17 05:00 Hct 30.3 % (35.4-49) L 05/26/17 05:00 MCV 92.7 fl (80-96) 05/26/17 05:00 MCH 30.7 pg (25.7-33.7) 05/26/17 05:00 MCHC 33.2 g/dl (32.0-35.9) 05/26/17 05:00 RDW 13.7 % (11.9-15.9) 05/26/17 05:00 Plt Count 189 K/MM3 (134-434) 05/26/17 05:00 MPV 10.0 fl (7.5-11.1) 05/26/17 05:00 Total Counted 100 05/24/17 20:49 Neutrophils % 86.6 % (42.8-82.8) H 05/26/17 05:00 Neutrophils % (Manual) 87.0 % (42.8-82.8) H 05/24/17 20:49 Lymphocytes % 5.6 % (8-40) L 05/26/17 05:00 Lymphocytes % (Manual) 7.0 % (8-40) L 05/24/17 20:49 Monocytes % 7.0 % (3.8-10.2) 05/26/17 05:00 Monocytes % (Manual) 5 % (3.8-10.2) 05/24/17 20:49 Eosinophils % 0.3 % (0-4.5) 05/26/17 05:00 Basophils % 0.5 % (0-2.0) 05/26/17 05:00 Differential Comment 05/24/17 20:49 Platelet Estimate Adequate 05/24/17 20:49 Platelet Comment 05/24/17 20:49 ESR 107 mm/hr (0-20) H 05/24/17 20:49 PT with INR 18.00 SEC (9.98-11.88) H 05/25/17 05:10 INR 1.59 (0.82-1.09) H 05/25/17 05:10 PTT (Actin FS) 51.3 SECONDS (26.9-34.4) H 05/26/17 08:00 VBG pH 7.51 (7.32-7.42) H 05/24/17 20:49 POC VBG pCO2 29.0 mmHg (38-52) L 05/24/17 20:49 POC VBG pO2 110.0 mmHg (28-48) H 05/24/17 20:49 Mixed VBG HCO3 22.9 meq/L (19-25) 05/24/17 20:49 Sodium 132 mmol/L (136-145) L 05/26/17 05:00 Potassium 3.9 mmol/L (3.5-5.1) D 05/26/17 05:00 Chloride 95 mmol/L (98-107) L 05/26/17 05:00 Carbon Dioxide 26 mmol/L (21-32) 05/26/17 05:00 Anion Gap 11 (8-16) 05/26/17 05:00 BUN 45 mg/dL (7-18) H D 05/26/17 05:00 Creatinine 7.5 mg/dL (0.7-1.3) H* D 05/26/17 05:00 Creat Clearance w eGFR 7.38 (>60) 05/26/17 05:00 POC Glucometer 163.00131 UNITS (80-120) 05/25/17 22:37 Random Glucose 128 mg/dL (74-106) H 05/26/17 05:00 Hemoglobin A1c % 8.6 % (4.8-6.0) H D 05/25/17 05:10 Lactic Acid 1.7 mmol/L (0.4-2.0) 05/24/17 20:50 Calcium 7.1 mg/dL (8.5-10.1) L 05/26/17 05:00 Phosphorus 4.2 mg/dL (2.5-4.9) 05/25/17 05:10 Magnesium 2.1 mg/dL (1.8-2.4) D 05/25/17 05:10 Total Bilirubin 1.3 mg/dL (0.2-1.0) H D 05/26/17 05:00 AST 18 U/L (15-37) 05/26/17 05:00 ALT 28 U/L (12-78) 05/26/17 05:00 Alkaline Phosphatase 79 U/L (45-117) 05/26/17 05:00 Creatine Kinase 106 IU/L (39-308) 05/24/17 20:49 Troponin I 0.60 ng/ml (0.00-0.05) H 05/25/17 12:00 C-Reactive Protein 25.9 MG/DL (0.00-0.3) H 05/24/17 20:49 Total Protein 6.0 g/dl (6.4-8.2) L 05/26/17 05:00 Albumin 2.2 g/dl (3.4-5.0) L 05/26/17 05:00 Triglycerides 171 mg/dL (35-160) H 05/25/17 05:10 Cholesterol 144 mg/dL (50-200) D 05/25/17 05:10 Total LDL Cholesterol 99 mg/dL (5-100) 05/25/17 05:10 HDL Cholesterol 16 mg/dL (40-60) L D 05/25/17 05:10 TSH 1.39 uIU/ml (0.358-3.74) 05/25/17 05:10 Random Vancomycin 7.979 ug/ml 05/25/17 12:40 Opiates Screen Negative ng/ml (RADOCB=839) 05/26/17 06:45 Methadone Screen Negative ng/ml (CVGNWA=142) 05/26/17 06:45 Barbiturate Screen Negative ng/ml (AZXFQI=949) 05/26/17 06:45 Phencyclidine Screen Negative ng/ml (CUTOFF=25) 05/26/17 06:45 Ur Amphetamines Screen Negative ng/ml (JTEJCB=417) 05/26/17 06:45 MDMA (Ecstasy) Screen Negative ng/ml (PCFYHV=419) 05/26/17 06:45 Benzodiazepines Screen Negative ng/ml (ZYFHFR=762) 05/26/17 06:45 Cocaine Screen Negative ng/ml (LOYSVC=315) 05/26/17 06:45 U Marijuana (THC) Screen Negative ng/ml (CUTOFF=50) 05/26/17 06:45 Hepatitis A Ab Total Negative (Negative) 05/25/17 08:16 Hep Bs Antigen Positive (Negative) H 05/25/17 08:16 Hep Bs Antibody Non reactive (.) 05/25/17 08:16 Hep B Core Total Ab Positive (Negative) H 05/25/17 08:16 Hepatitis C Antibody <0.1 s/co ratio (0.0-0.9) 05/25/17 08:16 HIV 1&2 Ag/Ab, 4th Gen Non reactive (Non Reactive) 05/25/17 05:10 Blood Type O POSITIVE 05/24/17 20:40 Antibody Screen Negative 05/24/17 20:40 Home Medications Medication Instructions Recorded Metoprolol Succinate [Toprol Xl -] 25 mg PO DAILY 12/20/16 Aspirin [ASA -] 81 mg PO DAILY 12/23/16 Tenofovir Disoproxil Fumarate 300 mg PO MOWEFR 05/26/17 [Viread] Microbiology 05/24/17 20:49 Blood - Peripheral Venous Blood Culture - Preliminary NO GROWTH OBTAINED AFTER 24 HOURS, INCUBATION TO CONTINUE FOR 4 DAYS. 05/24/17 20:40 Blood - Peripheral Venous Blood Culture - Preliminary NO GROWTH OBTAINED AFTER 24 HOURS, INCUBATION TO CONTINUE FOR 4 DAYS. A/P Pt is a 61 y/o M with PMhx of ESRD (on HD MWF), HTN, HepB, DM type II ( noncompliant with meds), CAD (s/p CABG) presented to the ED with nausea, dizziness, generalized weakness, and R toe infection after missing a HD session (intermittently noncompliant with HD, was admitted for CHF, Afib with RVR, and sepsis secondary to diabetic foot ulcer. 1. Sepsis secondary to diabetic foot ulcer with superimposed cellulitis -likely osteomyelitis in L foot; f/u MRI -podiatry recommended amputation of 4th and 5th digit of R foot but pt refused -vascular surgery - arterial doppler/PVR pending -continue vanc/zosyn 2.25 mg Q8H 3. ESRD -missed HD; received urgent HD on 05/24 -stopped today's HD before time due to lower back pain -nephrology consulted 4. New onset A.fib with RVR of 122 -converted to NSR -lopressor 25 mg -heparin gtt due to CHADSVASC >3 -echo -tele monitor -cardiology consulted 5. Chronic back pain -heating pads as needed 6. DM -very noncompliant -HbA1c 8.6 -ISS -BGMs ACHS 7. HTN -lisinopril 2.5 mg QD and metoprolol XL 25 mg BID 8. CAD -s/p CABG and stents -aspirin 81 mg QD 9. HepB -tenofovir 300 mg 3x/week 8. HLD -lipitor 10 mg HS 9. FEN -no IVFs -lytes wnl; continue monitoring -renal diet 10. PPx -DVT: heparin gtt -No GI ppx Dispo: Continue monitoring; awaiting results of MRI and MIGUE to guide further management Kaila Hanson, MS3
[2017-05-26] MEDS ORDERED: TENOFOVIR DISOPROXIL FUMARATE 300 MG TABLET PO SCH ×2 (17:20→17:30)
[2017-05-26] MEDS ORDERED: PROCHLORPERAZINE MALEATE 5 MG TABLET PO ONE (17:40)
[2017-05-26] MEDS ORDERED: INSULIN (NOVOLOG) ASPART 100 UNITS/ML 10ML VIAL ONE (18:42)
--- NOTE | 2017-05-26 18:57 | PN ---
Progress Note, Physician Chief Complaint: Infectious Disease f/u: History of Present Illness: Pt seen and examined. Notes and events reviewed. Low grade fever earlier today. Received HD earlier. Awaiting LE MRI. Alert, denies any specific complaints. - Current Medication List Current Medications: Active Medications Aspirin (Asa -) 81 mg PO DAILY [facility] Last Admin: 05/26/17 14:02 Dose: 81 mg Atorvastatin Calcium (Lipitor -) 10 mg PO HS [facility] Last Admin: 05/25/17 22:28 Dose: 10 mg Heparin Sodium (Porcine) (Heparin -) 5,000 unit IVPUSH PRN PRN PRN Reason: Heparin Last Admin: 05/25/17 18:53 Dose: 5,000 unit Heparin Sodium (Porcine) (Heparin -) 1,000 unit IVPUSH PRN PRN PRN Reason: Heparin Last Admin: 05/26/17 03:24 Dose: 1,000 unit Heparin Sodium (Porcine) 25, (000 unit/ Sodium Chloride) 500 mls @ 20 mls/hr IV TITR LORRI; 1,000 UNIT/HR PRN Reason: Protocol Last Titration: 05/26/17 03:25 Dose: 1,350 unit/hr, 27 mls/hr Piperacillin Sod/Tazobactam (Sod 2.25 gm/ Dextrose) 50 mls @ 100 mls/hr IVPB Q8H-IV [facility] Last Admin: 05/26/17 18:04 Dose: 100 mls/hr Insulin Aspart (Novolog Vial Sliding Scale -) 1 vial SQ ACHS [facility] PRN Reason: Protocol Last Admin: 05/26/17 18:46 Dose: 4 unit Lisinopril (Prinivil) 2.5 mg PO DAILY [facility] Last Admin: 05/26/17 14:01 Dose: 2.5 mg Metoprolol Tartrate (Lopressor -) 25 mg PO BID [facility] Last Admin: 05/26/17 14:23 Dose: 25 mg Tenofovir Disoproxil Fumarate (Viread -) 300 mg PO Q72H [facility] Last Admin: 05/26/17 18:37 Dose: 300 mg - Objective Vital Signs: Vital Signs Temperature 98.3 F 05/26/17 13:53 Pulse Rate 83 05/26/17 16:00 Respiratory Rate 20 05/26/17 16:00 Blood Pressure 120/60 05/26/17 16:00 O2 Sat by Pulse Oximetry (%) 100 05/26/17 09:00 Constitutional: Yes: No Distress Neck: Yes: Supple Cardiovascular: Yes: Regular Rate and Rhythm Respiratory: Yes: Regular Gastrointestinal: Yes: Normal Bowel Sounds, Soft (Rt foot with dorsal necrotic patches , surrounding erythema extends to ankle .Mildly tender. 3/4/5th toes dusky. mild serous drainage. Lt foot with deep ulcer under 2nd MT with mild amount of purulent drainage. No erythema/tenderness) Labs: CBC, BMP 05/26/17 05:00 05/26/17 05:00 INR, PTT INR 1.59 (0.82-1.09) H 05/25/17 05:10 Microbiology 05/24/17 20:49 Blood - Peripheral Venous Blood Culture - Preliminary NO GROWTH OBTAINED AFTER 24 HOURS, INCUBATION TO CONTINUE FOR 4 DAYS. 05/24/17 20:40 Blood - Peripheral Venous Blood Culture - Preliminary NO GROWTH OBTAINED AFTER 24 HOURS, INCUBATION TO CONTINUE FOR 4 DAYS. Hepatic Panel Total Bilirubin 1.3 mg/dL (0.2-1.0) H D 05/26/17 05:00 AST 18 U/L (15-37) 05/26/17 05:00 ALT 28 U/L (12-78) 05/26/17 05:00 Alkaline Phosphatase 79 U/L (45-117) 05/26/17 05:00 Albumin 2.2 g/dl (3.4-5.0) L 05/26/17 05:00 ESR - 107, Hep B surface Ag+, Hep B core Ab+ HIV ab neg Hep C ab neg Problem List - Problems (1) Atrial fibrillation Code(s): I48.91 - UNSPECIFIED ATRIAL FIBRILLATION Qualifiers: Atrial fibrillation type: unspecified Qualified Code(s): I48.91 - Unspecified atrial fibrillation (2) ESRD (end stage renal disease) on dialysis Code(s): N18.6 - END STAGE RENAL DISEASE; Z99.2 - DEPENDENCE ON RENAL DIALYSIS (3) Cellulitis Code(s): L03.90 - CELLULITIS, UNSPECIFIED Qualifiers: Site of cellulitis: extremity Site of cellulitis of extremity: lower extremity Laterality: unspecified laterality Qualified Code(s): L03.119 - Cellulitis of unspecified part of limb (4) Sepsis Code(s): A41.9 - SEPSIS, UNSPECIFIED ORGANISM Qualifiers: Sepsis type: sepsis due to unspecified organism Qualified Code(s): A41.9 - Sepsis, unspecified organism (5) Coronary arteriosclerosis Code(s): I25.10 - ATHSCL HEART DISEASE OF [place] CORONARY ARTERY W/O ANG PCTRS (6) Diabetes Code(s): E11.9 - TYPE 2 DIABETES MELLITUS WITHOUT COMPLICATIONS (7) Hypertension Code(s): I10 - ESSENTIAL (PRIMARY) HYPERTENSION Assessment/Plan Sepsis Leukocytosis - wbc remains elevated Fever - low grade Rt foot cellulitis/blistering/ischemic changes Lt foot plantar ulcer/OM Hepatitis B on Entecavir ESRD on HD -- continue Zosyn -- Vancomycin IV post HD on dialysis days -- awaiting MRI of LEs -- vascular f/u -- order hepatitis B viral load -- wound cultures -- monitor cbc / temps -- continue wound care case d/w podiatry earlier today monitor vitals closely cc time: 40 min
[2017-05-26] MEDS: ATORVASTATIN CA 10 MG TABLET (FP) PO SCH (21:52)
[2017-05-26] MEDS: HEPARIN - 25,000 UNIT in SODIUM CHLORIDE 495 ML IV SCH (23:09)
[2017-05-27] MEDS: PIPERACILLIN/TAZOB 2.25 GM 2.25 GM in DEXTROSE 5%-WATER - 50 ML IVPB SCH ×3 (01:26→17:41)
[2017-05-27] MEDS: INSULIN SLIDING SCALE (NOVOLOG) 1 VIAL SQ SCH ×4 (06:00→22:03)
[2017-05-27 06:22] LABS: BASOPHIL 0.4 % (0-2.0); EOSINOPHIL 0.5 % (0-4.5); MCH 30.6 pg (25.7-33.7); MCHC 33.2 g/dl (32.0-35.9); MEAN CELL VOLUME 92.1 fl (80-96); MEAN PLT VOLUME 10.2 fl (7.5-11.1); NEUTROPHILS 81.2 % (42.8-82.8); PLATELET COUNT 196 K/MM3 (134-434); RDW 13.5 % (11.9-15.9); WHITE BLOOD COUNT 20.9 K/mm3 (4.0-10.0)
[2017-05-27 07:10] LABS: ALK PHOS 86 U/L (45-117); ANION GAP 11 (8-16); CALCIUM 7.1 mg/dL (8.5-10.1); CO2 27 mmol/L (21-32); GLUCOSE,RANDOM 97 mg/dL (74-106); TOT PROT 5.7 g/dl (6.4-8.2)
[2017-05-27 07:11] LABS: BILIRUBIN,TOTAL 1.2 mg/dL (0.2-1.0); CREATININE 5.9 mg/dL (0.7-1.3); PHOSPHOROUS 4.4 mg/dL (2.5-4.9); SGOT/AST 30 U/L (15-37); SGPT/ALT 35 U/L (12-78)
--- NOTE | 2017-05-27 08:23 | PN ---
Physical Exam: SUBJECTIVE: Patient seen and examined. Much calmer this AM. COoperative. Asymptomatic. States back pain has gone down. No issues with breathing. No CP, no fevers, no chills. Discussed about possibility of long-term antibiotics if diagnosis is osteo, pt has had PICC line before, willing to do it agian. OBJECTIVE: Vital Signs Period Temp Pulse Resp BP Sys/Palafox Pulse Ox Last 24 Hr 98.3 F-99 F 68-83 16-20 101-154/54-70 100-100 GEN: AAOx3, NAD, Lying down visibly looks tired HEENT; PERRLA, EOMi CV: S1, S2, RRR LUNG: Grossly clear to asucultation bilaterally ABD; Soft, NT, ND MSK: No edema. L foot - submetatarsal ulcer, probing into bone, some purulent dc. R foot - ischemic changes to 3rd and 4th digit, gangrenous patch on the dorsum. Faint DP pulses bilaterally Laboratory Last Values WBC 20.9 K/mm3 (4.0-10.0) H 05/27/17 05:00 RBC 3.16 M/mm3 (4.00-5.60) L 05/27/17 05:00 Hgb 9.7 GM/dL (11.7-16.9) L 05/27/17 05:00 Hct 29.1 % (35.4-49) L 05/27/17 05:00 MCV 92.1 fl (80-96) 05/27/17 05:00 MCH 30.6 pg (25.7-33.7) 05/27/17 05:00 MCHC 33.2 g/dl (32.0-35.9) 05/27/17 05:00 RDW 13.5 % (11.9-15.9) 05/27/17 05:00 Plt Count 196 K/MM3 (134-434) 05/27/17 05:00 MPV 10.2 fl (7.5-11.1) 05/27/17 05:00 Total Counted 100 05/24/17 20:49 Neutrophils % 81.2 % (42.8-82.8) 05/27/17 05:00 Neutrophils % (Manual) 87.0 % (42.8-82.8) H 05/24/17 20:49 Lymphocytes % 10.0 % (8-40) D 05/27/17 05:00 Lymphocytes % (Manual) 7.0 % (8-40) L 05/24/17 20:49 Monocytes % 7.9 % (3.8-10.2) 05/27/17 05:00 Monocytes % (Manual) 5 % (3.8-10.2) 05/24/17 20:49 Eosinophils % 0.5 % (0-4.5) 05/27/17 05:00 Basophils % 0.4 % (0-2.0) 05/27/17 05:00 Differential Comment 05/24/17 20:49 Platelet Estimate Adequate 05/24/17 20:49 Platelet Comment 05/24/17 20:49 ESR 107 mm/hr (0-20) H 05/24/17 20:49 PT with INR 18.00 SEC (9.98-11.88) H 05/25/17 05:10 INR 1.59 (0.82-1.09) H 05/25/17 05:10 PTT (Actin FS) 35.3 SECONDS (26.9-34.4) H D 05/27/17 05:00 VBG pH 7.51 (7.32-7.42) H 05/24/17 20:49 POC VBG pCO2 29.0 mmHg (38-52) L 05/24/17 20:49 POC VBG pO2 110.0 mmHg (28-48) H 05/24/17 20:49 Mixed VBG HCO3 22.9 meq/L (19-25) 05/24/17 20:49 Sodium 134 mmol/L (136-145) L 05/27/17 05:00 Potassium 3.7 mmol/L (3.5-5.1) 05/27/17 05:00 Chloride 96 mmol/L (98-107) L 05/27/17 05:00 Carbon Dioxide 27 mmol/L (21-32) 05/27/17 05:00 Anion Gap 11 (8-16) 05/27/17 05:00 BUN 34 mg/dL (7-18) H D 05/27/17 05:00 Creatinine 5.9 mg/dL (0.7-1.3) H D 05/27/17 05:00 Creat Clearance w eGFR 9.73 (>60) 05/27/17 05:00 POC Glucometer 95.45994 UNITS (80-120) 05/26/17 21:48 Random Glucose 97 mg/dL (74-106) D 05/27/17 05:00 Hemoglobin A1c % 8.6 % (4.8-6.0) H D 05/25/17 05:10 Lactic Acid 1.7 mmol/L (0.4-2.0) 05/24/17 20:50 Calcium 7.1 mg/dL (8.5-10.1) L 05/27/17 05:00 Phosphorus 4.4 mg/dL (2.5-4.9) 05/27/17 05:00 Magnesium 2.0 mg/dL (1.8-2.4) 05/27/17 05:00 Total Bilirubin 1.2 mg/dL (0.2-1.0) H 05/27/17 05:00 AST 30 U/L (15-37) D 05/27/17 05:00 ALT 35 U/L (12-78) D 05/27/17 05:00 Alkaline Phosphatase 86 U/L (45-117) 05/27/17 05:00 Creatine Kinase 106 IU/L (39-308) 05/24/17 20:49 Troponin I 0.60 ng/ml (0.00-0.05) H 05/25/17 12:00 C-Reactive Protein 25.9 MG/DL (0.00-0.3) H 05/24/17 20:49 Total Protein 5.7 g/dl (6.4-8.2) L 05/27/17 05:00 Albumin 2.0 g/dl (3.4-5.0) L 05/27/17 05:00 Triglycerides 171 mg/dL (35-160) H 05/25/17 05:10 Cholesterol 144 mg/dL (50-200) D 05/25/17 05:10 Total LDL Cholesterol 99 mg/dL (5-100) 05/25/17 05:10 HDL Cholesterol 16 mg/dL (40-60) L D 05/25/17 05:10 TSH 1.39 uIU/ml (0.358-3.74) 05/25/17 05:10 Random Vancomycin 7.979 ug/ml 05/25/17 12:40 Opiates Screen Negative ng/ml (ZHLUZG=679) 05/26/17 06:45 Methadone Screen Negative ng/ml (OXPLSK=887) 05/26/17 06:45 Barbiturate Screen Negative ng/ml (ATPQMG=939) 05/26/17 06:45 Phencyclidine Screen Negative ng/ml (CUTOFF=25) 05/26/17 06:45 Ur Amphetamines Screen Negative ng/ml (URPFDE=150) 05/26/17 06:45 MDMA (Ecstasy) Screen Negative ng/ml (YJOFLH=482) 05/26/17 06:45 Benzodiazepines Screen Negative ng/ml (LMVEWT=233) 05/26/17 06:45 Cocaine Screen Negative ng/ml (RFUPZP=664) 05/26/17 06:45 U Marijuana (THC) Screen Negative ng/ml (CUTOFF=50) 05/26/17 06:45 Hepatitis A Ab Total Negative (Negative) 05/25/17 08:16 Hep Bs Antigen Positive (Negative) H 05/25/17 08:16 Hep Bs Antibody Non reactive (.) 05/25/17 08:16 Hep B Core Total Ab Positive (Negative) H 05/25/17 08:16 Hepatitis C Antibody <0.1 s/co ratio (0.0-0.9) 05/25/17 08:16 HIV 1&2 Ag/Ab, 4th Gen Non reactive (Non Reactive) 05/25/17 05:10 Blood Type O POSITIVE 05/24/17 20:40 Antibody Screen Negative 05/24/17 20:40 Active Medications Generic Name Dose Route Start Last Admin Trade Name Freq PRN Reason Stop Dose Admin Aspirin 81 mg 05/25/17 10:00 05/26/17 14:02 Asa - PO 81 mg DAILY LORRI Administration Atorvastatin Calcium 10 mg 05/25/17 22:00 05/26/17 21:52 Lipitor - PO 10 mg HS LORRI Administration Heparin Sodium (Porcine) 5,000 unit 05/25/17 11:25 05/25/17 18:53 Heparin - IVPUSH 5,000 unit PRN PRN Administration Heparin Heparin Sodium (Porcine) 1,000 unit 05/25/17 11:30 05/26/17 03:24 Heparin - IVPUSH 1,000 unit PRN PRN Administration Heparin Heparin Sodium (Porcine) 25, 500 mls @ 20 mls/hr 11/25/17 22:15 05/26/17 23: 09 000 unit/ Sodium Chloride IV Not Given TITR LORRI Protocol 1,000 UNIT/HR Piperacillin Sod/Tazobactam 50 mls @ 100 mls/hr 05/25/17 13:00 05/27/17 01:26 Sod 2.25 gm/ Dextrose IVPB 100 mls/hr Q8H-IV LORRI Administration Insulin Aspart 1 vial 05/25/17 07:00 05/27/17 06:00 Novolog Vial Sliding Scale - SQ Not Given ACHS [facility] Protocol Lisinopril 2.5 mg 05/26/17 10:00 05/26/17 14:01 Prinivil PO 2.5 mg DAILY LORRI Administration Metoprolol Tartrate 25 mg 05/25/17 10:00 05/26/17 21:52 Lopressor - PO 25 mg BID LORRI Administration Tenofovir Disoproxil Fumarate 300 mg 05/26/17 17:20 05/26/17 18:37 Viread - PO 300 mg Q72H LORRI Administration ASSESSMENT/PLAN: 61yo M with PMHx of ESRD on HD (MWF), CAD, HTN, Hep B (on entecavir), IDDM who is generally noncompliant with meds and intermittently with HD sessions. He was admitted with CHF, new onset Afib w/ RVR, and sepsis likely secondary to diabetic foot ulcer # Sepsis likely 2/2 Osteomyelitis - Sepsis resolving. MRI+ Osteomyelitis on R 4th phalanx and L 1st and 2nd phalanx. Podiatry seen. Patient adamently refuses amputation. Is agreeable to long-term IV abx. Currently on Vanc + Zosyn 2.25 Q8H. - Patient likely has peripheral arterial disease. Vascular consulted. PVRs ordered to assess flow and need for angiogram. If needed, pt is agreeable. # New onset Afib w/ RVR - Continues to be in NSR. Could have been secondary to infection vs fluid overload from missing HD sessions. Pt was started on heparin gtt due to CHADSVASC 3. Discussed oral AC, and patient will consider his options. # ESRD - ESRD M, W, F, continue # Chronic Back Pain - Given heat packs if needs relief. Avoid NSAIDS and narcotics. # Elevated Troponins - Demand ischemia from sepsis/rapid Afib + poor clearance from ESRD; unlikely ACS # IDDM - Hgb A1C 8.8, non compliant, BGMs ACHS + ISS # HTN - continue Lisinopril 2.5mg daily and Lopressor 25 BID now # Hepatitis B - will continue home tenofovir # Hx of HLD - continue Atorvastatin 10mg HS # Hx of CAD - continue home ASA 81 # FEN - No fluids, elec wnl, renal diet # PPx - Heparin gtt, no GI, PT not orderd # Dispo - MRI+ osteo. Will need detention abx since refusing amputation. Awaiting vascular PVR to assess peripheral arterial disease to see if patient needs angiogram and stent to help lower extremity flow. Anticipate d/c in 2-3 days. d/w Dr Barrett Cartwright MD - PGY1 Internal Medicine Visit type - Emergency Visit Emergency Visit: No - New Patient This patient is new to me today: No - Critical Care Critical Care patient: No - Discharge Referral Referred to [facility] Med P.C.: No
[2017-05-27] MEDS: HEPARIN NA (PORCINE) 5,000 UNITS/ML 1ML VIAL IVPUSH PRN (08:41)
--- NOTE | 2017-05-27 10:10 | PN ---
Progress Note (short form) - Note Progress Note: Pt without complaints of foot pain/lower ext pain. Vital Signs Period Temp Pulse Resp BP Sys/Palafox Pulse Ox Last 24 Hr 98.3 F-99 F 68-83 18-20 106-154/54-70 100 GEN: Alert Left foot: dry callous on plantar surface, no erythema. Palpable DP pulse, confirmed with dopperle+2, left PT +1 with doppler Right foot: 3/4 toe with ischemia and skin necrosis on the dorsum of the foot extending from toe base to med foot, mild erythema and swelling. DP and PT pulse with doppler. LUE with good thrill CBC, BMP 05/27/17 05:00 05/27/17 05:00 INR, PTT INR 1.59 (0.82-1.09) H 05/25/17 05:10 A/P: 61 yo male with infected 3/4 right foot toe and evidence of ischemia D/w Dr. Graham, continue IV heparin PVR's ordered and to be completed, to be reviewed and determine the need for angio Continue HD MWF
[2017-05-27] MEDS ORDERED: PT OWN MED DRAWER 7, Y5N ONE ×2 (10:11→16:12)
[2017-05-27] MEDS: LISINOPRIL 5 MG TABLET (FP) PO SCH ×2 (10:17→10:21)
[2017-05-27] MEDS: METOPROLOL TARTRATE 25 MG TABLET (FP) PO SCH ×2 (10:17→22:03)
[2017-05-27] MEDS: ASPIRIN 81 MG CHEWABLE TABLETS PO SCH (10:17)
--- NOTE | 2017-05-27 12:54 | PN ---
Progress Note (short form) - Note Progress Note: Podiatry F/U: Seen/evaluated at bedside, patient states he feels a bit better. Continues to have low grade temp. Denies F/V/N/C/SOB/CP. Continues to be belligerent about discussing treatment plan with me. MRI obtained. SITA: R foot: large dorsal lateral necrotic patch with underlying fluctuance, periwound erythema present, duskiness to 3rd/4th/5th digits, no purulent drainage expressed, no soft tissue crepitus, no tenderness to palpation. WBC: 20.9 Blood Cx: no growth x 48 hrs MRI R foot: fluid collection over 3rd/4th/5th MTPJs with osteomyelitis Imp: 61 year old IDDM M with R foot abscess, cellulitis, osteomeylitis 1. C/w IV abx per Infectious Disease 2. Results of MRI reviewed with patient. I had a lengthy discussion with the patient regarding his condition and treatment options. I have strongly urged patient to agree to surgery for radical debridement/lavage with amputation of toes . Patient is adamantly refusing surgery at this time, saying that he wants to keep his toes at all costs. I have discussed that the toes do not appear to be viable at this juncture, he "does not want to hear it". I have discussed the risks of worsening infection, sepsis, loss of limb and even loss of life. He understands this. I will be on standby. Rosaura Sheth DPM
--- NOTE | 2017-05-27 13:18 | PN ---
Progress Note (short form) - Note Progress Note: Renal Follow up for ESRD on HD Pt seen and examined on tele awake and alert no acute complaints no sob, chest pain, fever, chills Vital Signs Temperature 98.9 F 05/27/17 05:25 Pulse Rate 70 05/27/17 05:25 Respiratory Rate 18 05/27/17 05:25 Blood Pressure 140/70 05/27/17 05:25 O2 Sat by Pulse Oximetry (%) 100 05/26/17 20:00 Intake & Output 05/24/17 05/25/17 05/26/17 05/27/17 23:59 23:59 23:59 23:59 Intake Total 686 696 424 Balance 686 696 424 Weight 102.058 kg 105.823 kg NAD awake and alert RRR, NO M/R CTA no rales or wheeze Trace LE edema Dressing on both feet CBC, BMP 05/27/17 05:00 05/27/17 05:00 Laboratory Tests 05/27/17 05:00 Calcium 7.1 L Phosphorus 4.4 Magnesium 2.0 Albumin 2.0 L Current Medications Aspirin (Asa -) 81 mg PO DAILY LORRI Last Admin: 05/27/17 10:17 Dose: 81 mg Atorvastatin Calcium (Lipitor -) 10 mg PO HS LORRI Last Admin: 05/26/17 21:52 Dose: 10 mg Heparin Sodium (Porcine) (Heparin -) 5,000 unit IVPUSH PRN PRN PRN Reason: Heparin Last Admin: 05/27/17 08:41 Dose: 5,000 unit Heparin Sodium (Porcine) (Heparin -) 1,000 unit IVPUSH PRN PRN PRN Reason: Heparin Last Admin: 05/26/17 03:24 Dose: 1,000 unit Heparin Sodium (Porcine) 25, (000 unit/ Sodium Chloride) 500 mls @ 20 mls/hr IV TITR LORRI; 1,000 UNIT/HR PRN Reason: Protocol Last Admin: 05/26/17 23:09 Dose: Not Given Piperacillin Sod/Tazobactam (Sod 2.25 gm/ Dextrose) 50 mls @ 100 mls/hr IVPB Q8H-IV LORRI Last Admin: 05/27/17 10:18 Dose: 100 mls/hr Insulin Aspart (Novolog Vial Sliding Scale -) 1 vial SQ ACHS LORRI PRN Reason: Protocol Last Admin: 05/27/17 13:05 Dose: Not Given Lisinopril (Prinivil) 2.5 mg PO DAILY [facility] Last Admin: 05/27/17 10:21 Dose: Not Given Metoprolol Tartrate (Lopressor -) 25 mg PO BID [facility] Last Admin: 05/27/17 10:17 Dose: 25 mg Tenofovir Disoproxil Fumarate (Viread -) 300 mg PO Q72H [facility] Last Admin: 05/26/17 18:37 Dose: 300 mg 61 yom with ESRD on HD, CAD, HTN, Hepatitis B (on entecavir but no recent follow UP), IDDM non compliant, admitted with CHF in the setting of missing HD, Afib with RVR, and sepsis diabetic foot with superimposed cellulitis/likely osteomyelitis. 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
--- NOTE | 2017-05-27 13:42 | PN ---
Teaching Attending Note Name of Resident: Pankaj Cartwright ATTENDING PHYSICIAN STATEMENT I saw and evaluated the patient. I reviewed the resident's note and discussed the case with the resident. I agree with the resident's findings and plan as documented. SUBJECTIVE:currently asymptomatic. states he has no pain in his foot. denies CP , palpitations, SOB, fever, chills, N/V/C/D OBJECTIVE: Last Vital Signs Temp Pulse Resp BP Pulse Ox 98.9 F 70 18 140/70 100 05/27/17 05:25 05/27/17 05:25 05/27/17 05:25 05/27/17 05:25 05/26/17 20:00 General NAD CV S1 S2 RRR no murmur/rub/gallop Lungs CTA B/L no wheezing/rales/rhonchi Extremities pulses with doppler. necrotic 3rd-5th digit R foot. 1ked6kc ulcer plantar aspect L foot with non tender no drainage ASSESSMENT AND PLAN: 61yo M with PMH ESRD, HBV on treatment, DM, CHF presented to the ER with complaints of R foot infection that was worsening 1. Sepsis due to Diabetic foot ulcer with underlying OM of the foot-OM confirmed on MRI. pt is adamantly refusing amputation. states that he understands risks of infection worsening in his foot and can lead to limb loss and even . will attempt medical management at this time. obtain PVR to assess blood flow to the extremities. on Zosyn/Vanco day 3. podiatry, vascular, and ID on board. 2. New onset afib- with RVR. self converted to NSR. on hep ggt. metoprolol. cardio on board. will need to convert to NOAC once confirmed no procedures are planned. 3. Tropinemia- flat trend 0.87. should have ischemic workup at later time. on asa 4. ESRD on HD- cont HD per normal schedule. fluid restriction 5. DM- A1c 8.6. controlled. cont iss. not requiring much coverage. 6. Normocytic anemia- no signs of bleeding. check iron studies. no indication for txn. cont hep ggt 7. HBV- on tenofovir 8. DVT ppx- hep ggt
--- NOTE | 2017-05-27 14:43 | PN ---
Progress Note, Physician Chief Complaint: Pt A&Ox3; denies chest pain, dyspnea, or leg pain presently. History of Present Illness: The patient is a 61 yr old white man with past medical history of hypertension, IDDM (non-compliant) and ESRD (on dialysis MWF) who presents to the ED with complaints of nausea and dizziness for the past three days. The patient states that his symptoms began when he last went to dialysis on Friday and subsequently has been feeling weak and lightheaded as well. He also notes that he has had intermittent diarrhea for the past two weeks which he describes as watery stools. Additionally, the patient began to noticed an infected blister on his right toe which appears infected and cyanotic. In the ED, the patient was also noted to be hypotensive. The patient had recently traveled to [place] ; this resulted in disrupting his hemodialysis schedule for a week. He denies any fevers or chills. He denies any shortness of breath or chest pain. He denies any urinary symptoms. Head Cd Reactor Operator: Dr. Yokasta Monae - Current Medication List Current Medications: Active Medications Aspirin (Asa -) 81 mg PO DAILY LORRI Last Admin: 05/27/17 10:17 Dose: 81 mg Atorvastatin Calcium (Lipitor -) 10 mg PO HS LORRI Last Admin: 05/26/17 21:52 Dose: 10 mg Heparin Sodium (Porcine) (Heparin -) 5,000 unit IVPUSH PRN PRN PRN Reason: Heparin Last Admin: 05/27/17 08:41 Dose: 5,000 unit Heparin Sodium (Porcine) (Heparin -) 1,000 unit IVPUSH PRN PRN PRN Reason: Heparin Last Admin: 05/26/17 03:24 Dose: 1,000 unit Heparin Sodium (Porcine) 25, (000 unit/ Sodium Chloride) 500 mls @ 20 mls/hr IV TITR LORRI; 1,000 UNIT/HR PRN Reason: Protocol Last Admin: 05/26/17 23:09 Dose: Not Given Piperacillin Sod/Tazobactam (Sod 2.25 gm/ Dextrose) 50 mls @ 100 mls/hr IVPB Q8H-IV LORRI Last Admin: 05/27/17 10:18 Dose: 100 mls/hr Vancomycin HCl 1,000 mg/ (Dextrose) 250 mls @ 250 mls/hr IVPB ONCE ONE PRN Reason: Protocol Stop: 05/28/17 06:59 Insulin Aspart (Novolog Vial Sliding Scale -) 1 vial SQ ACHS [facility] PRN Reason: Protocol Last Admin: 05/27/17 13:05 Dose: Not Given Lisinopril (Prinivil) 2.5 mg PO DAILY [facility] Last Admin: 05/27/17 10:21 Dose: Not Given Metoprolol Tartrate (Lopressor -) 25 mg PO BID [facility] Last Admin: 05/27/17 10:17 Dose: 25 mg Tenofovir Disoproxil Fumarate (Viread -) 300 mg PO Q72H [facility] Last Admin: 05/26/17 18:37 Dose: 300 mg - Objective Vital Signs: Vital Signs Temperature 98.4 F 05/27/17 14:27 Pulse Rate 70 05/27/17 05:25 Respiratory Rate 18 05/27/17 14:27 Blood Pressure 130/70 05/27/17 14:27 O2 Sat by Pulse Oximetry (%) 100 05/26/17 20:00 Constitutional: Yes: No Distress Eyes: Yes: WNL HENT: Yes: WNL Neck: Yes: WNL Cardiovascular: Yes: Pulse Irregular, S1 (varies in intensity) Respiratory: Yes: Regular Gastrointestinal: Yes: Soft ...Rectal Exam: Yes: Deferred Genitourinary: Yes: Anuria Musculoskeletal: Yes: Muscle Weakness Extremities: Yes: Cool, Cyanosis, Other (bilateral LE purpura, gangrene) Edema: No Peripheral Pulses WNL: No Peripheral Pulses: Left Doralis Pedis: 1+, Right Dorsalis Pedis: 1+ Integumentary: Yes: Venous Stasis Changes, Other Wound/Incision: Yes: Dressing Dry and Intact Neurological: Yes: Alert, Oriented, Weakness Psychiatric: Yes: Alert, Oriented Labs: CBC, BMP 05/27/17 05:00 05/27/17 05:00 INR, PTT INR 1.59 (0.82-1.09) H 05/25/17 05:10 - ....Imaging Ultrasound: Report Reviewed (ECHO: normal LVEF: moderate pulmonary HTN; mild aortic root dilation.) Problem List - Problems (1) Atrial fibrillation Assessment/Plan: on Metoprolol for HR control. Start anticoagulation (warfarin or NOAC) if no contraindications. Code(s): I48.91 - UNSPECIFIED ATRIAL FIBRILLATION Qualifiers: Atrial fibrillation type: unspecified Qualified Code(s): I48.91 - Unspecified atrial fibrillation (2) Cellulitis Code(s): L03.90 - CELLULITIS, UNSPECIFIED Qualifiers: Site of cellulitis: extremity Site of cellulitis of extremity: lower extremity Laterality: unspecified laterality Qualified Code(s): L03.119 - Cellulitis of unspecified part of limb (3) ESRD (end stage renal disease) on dialysis Code(s): N18.6 - END STAGE RENAL DISEASE; Z99.2 - DEPENDENCE ON RENAL DIALYSIS (4) Sepsis Code(s): A41.9 - SEPSIS, UNSPECIFIED ORGANISM Qualifiers: Sepsis type: sepsis due to unspecified organism Qualified Code(s): A41.9 - Sepsis, unspecified organism (5) Diabetes Code(s): E11.9 - TYPE 2 DIABETES MELLITUS WITHOUT COMPLICATIONS (6) Hypertension Code(s): I10 - ESSENTIAL (PRIMARY) HYPERTENSION (7) Vertigo Code(s): R42 - DIZZINESS AND GIDDINESS (8) Orgas cardiac risk >20% in next 10 years Assessment/Plan: Continue statin. Stress MIBI when stable. Code(s): Z91.89 - OTH PERSONAL RISK FACTORS, NOT ELSEWHERE CLASSIFIED (9) Peripheral arterial disease Assessment/Plan: f/u with vascular surgeon. Code(s): I73.9 - PERIPHERAL VASCULAR DISEASE, UNSPECIFIED
--- NOTE | 2017-05-27 16:56 | MSN ---
Progress Note (short form) - Note Progress Note: SUBJECTIVE: Pt seen and examined at bedside. He looked well this morning and not in any acute distress. Was less belligerent and more cooperative. No complaints at this point. Denied any back pain or pain in the lower extremities. Denies any CP , SOB, palpitations, WEBB, dizziness, fever, chills, nausea, vomiting, diarrhea, constipation, or any urinary symptoms. OBJECTIVE Last Vital Signs Temp Pulse Resp BP Pulse Ox 98.4 F 70 18 130/70 100 05/27/17 14:27 05/27/17 05:25 05/27/17 14:27 05/27/17 14:27 05/26/17 20:00 GEN: AOX3, NAD HEENT: PERRLA, EOMI CV: RRR S1 S2 No MRG LUNG: CTA b/l ABD: +bowel sounds, soft, ND, NT MSK: L foot - 2 X 2 cm, 1 cm deep diabetic ulcer probing to the bone on the plantar surface in between the 2nd and 3rd metatarsal; some purulent discharge, no erythema; not tender to palpation; sensation intact; faint DP pulse R foot - gangrenous patches with surrounding erythema on the dorsolateral surface; mid-3rd, 4th, and slight 5th digit cyanotic and ischemic changes; no purulent discharge; not tender to palpation; sensation intact; unable to obtain DP pulse NEURO: CN II-XII grossly intact Laboratory Last Values WBC 20.9 K/mm3 (4.0-10.0) H 05/27/17 05:00 RBC 3.16 M/mm3 (4.00-5.60) L 05/27/17 05:00 Hgb 9.7 GM/dL (11.7-16.9) L 05/27/17 05:00 Hct 29.1 % (35.4-49) L 05/27/17 05:00 MCV 92.1 fl (80-96) 05/27/17 05:00 MCH 30.6 pg (25.7-33.7) 05/27/17 05:00 MCHC 33.2 g/dl (32.0-35.9) 05/27/17 05:00 RDW 13.5 % (11.9-15.9) 05/27/17 05:00 Plt Count 196 K/MM3 (134-434) 05/27/17 05:00 MPV 10.2 fl (7.5-11.1) 05/27/17 05:00 Total Counted 100 05/24/17 20:49 Neutrophils % 81.2 % (42.8-82.8) 05/27/17 05:00 Neutrophils % (Manual) 87.0 % (42.8-82.8) H 05/24/17 20:49 Lymphocytes % 10.0 % (8-40) D 05/27/17 05:00 Lymphocytes % (Manual) 7.0 % (8-40) L 05/24/17 20:49 Monocytes % 7.9 % (3.8-10.2) 05/27/17 05:00 Monocytes % (Manual) 5 % (3.8-10.2) 05/24/17 20:49 Eosinophils % 0.5 % (0-4.5) 05/27/17 05:00 Basophils % 0.4 % (0-2.0) 05/27/17 05:00 Differential Comment 05/24/17 20:49 Platelet Estimate Adequate 05/24/17 20:49 Platelet Comment 05/24/17 20:49 ESR 107 mm/hr (0-20) H 05/24/17 20:49 PT with INR 18.00 SEC (9.98-11.88) H 05/25/17 05:10 INR 1.59 (0.82-1.09) H 05/25/17 05:10 PTT (Actin FS) 35.3 SECONDS (26.9-34.4) H D 05/27/17 05:00 VBG pH 7.51 (7.32-7.42) H 05/24/17 20:49 POC VBG pCO2 29.0 mmHg (38-52) L 05/24/17 20:49 POC VBG pO2 110.0 mmHg (28-48) H 05/24/17 20:49 Mixed VBG HCO3 22.9 meq/L (19-25) 05/24/17 20:49 Sodium 134 mmol/L (136-145) L 05/27/17 05:00 Potassium 3.7 mmol/L (3.5-5.1) 05/27/17 05:00 Chloride 96 mmol/L (98-107) L 05/27/17 05:00 Carbon Dioxide 27 mmol/L (21-32) 05/27/17 05:00 Anion Gap 11 (8-16) 05/27/17 05:00 BUN 34 mg/dL (7-18) H D 05/27/17 05:00 Creatinine 5.9 mg/dL (0.7-1.3) H D 05/27/17 05:00 Creat Clearance w eGFR 9.73 (>60) 05/27/17 05:00 POC Glucometer 95.72400 UNITS (80-120) 05/26/17 21:48 Random Glucose 97 mg/dL (74-106) D 05/27/17 05:00 Hemoglobin A1c % 8.6 % (4.8-6.0) H D 05/25/17 05:10 Lactic Acid 1.7 mmol/L (0.4-2.0) 05/24/17 20:50 Calcium 7.1 mg/dL (8.5-10.1) L 05/27/17 05:00 Phosphorus 4.4 mg/dL (2.5-4.9) 05/27/17 05:00 Magnesium 2.0 mg/dL (1.8-2.4) 05/27/17 05:00 Total Bilirubin 1.2 mg/dL (0.2-1.0) H 05/27/17 05:00 AST 30 U/L (15-37) D 05/27/17 05:00 ALT 35 U/L (12-78) D 05/27/17 05:00 Alkaline Phosphatase 86 U/L (45-117) 05/27/17 05:00 Creatine Kinase 106 IU/L (39-308) 05/24/17 20:49 Troponin I 0.60 ng/ml (0.00-0.05) H 05/25/17 12:00 C-Reactive Protein 25.9 MG/DL (0.00-0.3) H 05/24/17 20:49 Total Protein 5.7 g/dl (6.4-8.2) L 05/27/17 05:00 Albumin 2.0 g/dl (3.4-5.0) L 05/27/17 05:00 Triglycerides 171 mg/dL (35-160) H 05/25/17 05:10 Cholesterol 144 mg/dL (50-200) D 05/25/17 05:10 Total LDL Cholesterol 99 mg/dL (5-100) 05/25/17 05:10 HDL Cholesterol 16 mg/dL (40-60) L D 05/25/17 05:10 TSH 1.39 uIU/ml (0.358-3.74) 05/25/17 05:10 Random Vancomycin 7.979 ug/ml 05/25/17 12:40 Opiates Screen Negative ng/ml (ZYCDPU=158) 05/26/17 06:45 Methadone Screen Negative ng/ml (TDNUZM=690) 05/26/17 06:45 Barbiturate Screen Negative ng/ml (JTCYYT=697) 05/26/17 06:45 Phencyclidine Screen Negative ng/ml (CUTOFF=25) 05/26/17 06:45 Ur Amphetamines Screen Negative ng/ml (KZYALE=391) 05/26/17 06:45 MDMA (Ecstasy) Screen Negative ng/ml (YVRLIV=120) 05/26/17 06:45 Benzodiazepines Screen Negative ng/ml (CAZWTP=134) 05/26/17 06:45 Cocaine Screen Negative ng/ml (LFTYTH=904) 05/26/17 06:45 U Marijuana (THC) Screen Negative ng/ml (CUTOFF=50) 05/26/17 06:45 Hepatitis A Ab Total Negative (Negative) 05/25/17 08:16 Hep Bs Antigen Positive (Negative) H 05/25/17 08:16 Hep Bs Antibody Non reactive (.) 05/25/17 08:16 Hep B Core Total Ab Positive (Negative) H 05/25/17 08:16 Hepatitis C Antibody <0.1 s/co ratio (0.0-0.9) 05/25/17 08:16 HIV 1&2 Ag/Ab, 4th Gen Non reactive (Non Reactive) 05/25/17 05:10 Blood Type O POSITIVE 05/24/17 20:40 Antibody Screen Negative 05/24/17 20:40 Home Medications Medication Instructions Recorded Metoprolol Succinate [Toprol Xl -] 25 mg PO DAILY 12/20/16 Aspirin [ASA -] 81 mg PO DAILY 12/23/16 Tenofovir Disoproxil Fumarate 300 mg PO MOWEFR 05/26/17 [Viread] Microbiology 05/24/17 20:49 Blood - Peripheral Venous Blood Culture - Preliminary NO GROWTH OBTAINED AFTER 24 HOURS, INCUBATION TO CONTINUE FOR 4 DAYS. 05/24/17 20:40 Blood - Peripheral Venous Blood Culture - Preliminary NO GROWTH OBTAINED AFTER 24 HOURS, INCUBATION TO CONTINUE FOR 4 DAYS. A/P Pt is a 61 y/o M with PMhx of ESRD (on HD MWF), HTN, HepB, DM type II ( noncompliant with meds), CAD (s/p CABG) presented to the ED with nausea, dizziness, generalized weakness, and R toe infection after missing a HD session (intermittently noncompliant with HD, was admitted for CHF, Afib with RVR, and sepsis secondary to diabetic foot ulcer. 1. Sepsis secondary to diabetic foot ulcer with superimposed cellulitis -likely osteomyelitis in L foot; MRI confirmed b/l osteomyelitis -podiatry recommended amputation of 4th and 5th digit of R foot but pt refused and understands the risks associated with the refusal -vascular surgery - arterial doppler/PVR pending; pt is agreeable to angiogram if needed based on PVR results -continue vanc/zosyn 2.25 mg Q8H (day 3) 2. ESRD -missed HD; received urgent HD on 05/24 -stopped yesterday's HD before time due to lower back pain -nephrology consulted 3. New onset A.fib with RVR of 122 -converted to NSR -lopressor 25 mg -heparin gtt due to CHADSVASC >3; will consider switching to NOAC upon further discussion -normal echo -tele monitor -cardiology consulted 4. Chronic back pain -heating pads as needed 5. DM -very noncompliant -HbA1c 8.6 -ISS; requiring very little coverage -BGMs ACHS 6. HTN -lisinopril 2.5 mg QD and metoprolol XL 25 mg BID 7. CAD -s/p CABG and stents -aspirin 81 mg QD -per cardiology, ischemic work-up at later time when stable 8. HepB -tenofovir 300 mg 3x/week 9. HLD -lipitor 10 mg HS 10. FEN -no IVFs -lytes wnl; continue monitoring, replete as necessary -renal diet 11. PPx -DVT: heparin gtt -No GI ppx Dispo: Continue monitoring; awaiting results of PVR to guide further management Kaila Hanson, MS3
[2017-05-27] MEDS ORDERED: HEMOQUE TEST 1 EACH EACH ONE (17:40)
[2017-05-27] MEDS: HEPARIN - 25,000 UNIT in SODIUM CHLORIDE 495 ML IV SCH (17:41)
[2017-05-27] MEDS: ATORVASTATIN CA 10 MG TABLET (FP) PO SCH (22:03)
[2017-05-28] MEDS: HEPARIN - 25,000 UNIT in SODIUM CHLORIDE 495 ML IV SCH (00:26)
[2017-05-28] MEDS ORDERED: PT OWN MED DRAWER 7, Y5N ONE ×5 (00:50→16:47)
[2017-05-28] MEDS: HEPARIN NA (PORCINE) 5,000 UNITS/ML 1ML VIAL IVPUSH PRN (00:56)
[2017-05-28] MEDS: PIPERACILLIN/TAZOB 2.25 GM 2.25 GM in DEXTROSE 5%-WATER - 50 ML IVPB SCH ×3 (01:03→17:07)
[2017-05-28] MEDS: INSULIN SLIDING SCALE (NOVOLOG) 1 VIAL SQ SCH ×4 (06:03→21:52)
[2017-05-28 06:20] LABS: BASOPHIL 0.4 % (0-2.0); MCH 30.2 pg (25.7-33.7); MCHC 32.7 g/dl (32.0-35.9); MEAN CELL VOLUME 92.3 fl (80-96); MEAN PLT VOLUME 10.8 fl (7.5-11.1); NEUTROPHILS 82.1 % (42.8-82.8); PLATELET COUNT 222 K/MM3 (134-434); RDW 13.5 % (11.9-15.9); WHITE BLOOD COUNT 19.8 K/mm3 (4.0-10.0)
[2017-05-28 06:51] LABS: ALBUMIN 2.1 g/dl (3.4-5.0); ALK PHOS 86 U/L (45-117); ANION GAP 16 (8-16); BILIRUBIN,TOTAL 0.9 mg/dL (0.2-1.0); CALCIUM 7.8 mg/dL (8.5-10.1); CO2 25 mmol/L (21-32); CREATININE 7.4 mg/dL (0.7-1.3); GLUCOSE,RANDOM 112 mg/dL (74-106); SGOT/AST 23 U/L (15-37); SGPT/ALT 34 U/L (12-78); TOT PROT 5.9 g/dl (6.4-8.2)
--- NOTE | 2017-05-28 07:54 | PN ---
Physical Exam: SUBJECTIVE: Patient seen and examined. Got PVR yesterday. Today states he feels ok, same as yesterday. No trouble breathing. No foot discomfort. No fevers, chills. OBJECTIVE: Vital Signs Period Temp Pulse Resp BP Sys/Palafox Pulse Ox Last 24 Hr 98.2 F-98.4 F 72-75 18-21 123-141/69-72 98-100 GEN: AAOx3, NAD, Lying down visibly looks tired HEENT; PERRLA, EOMi CV: S1, S2, RRR LUNG: Grossly clear to asucultation bilaterally ABD; Soft, NT, ND MSK: No edema. L foot - submetatarsal ulcer, probing into bone, some purulent dc. R foot - ischemic changes to 3rd and 4th digit, gangrenous patch on the dorsum. Faint DP pulses bilaterally Laboratory Last Values WBC 19.8 K/mm3 (4.0-10.0) H 05/28/17 06:00 RBC 3.09 M/mm3 (4.00-5.60) L 05/28/17 06:00 Hgb 9.3 GM/dL (11.7-16.9) L 05/28/17 06:00 Hct 28.6 % (35.4-49) L 05/28/17 06:00 MCV 92.3 fl (80-96) 05/28/17 06:00 MCH 30.2 pg (25.7-33.7) 05/28/17 06:00 MCHC 32.7 g/dl (32.0-35.9) 05/28/17 06:00 RDW 13.5 % (11.9-15.9) 05/28/17 06:00 Plt Count 222 K/MM3 (134-434) 05/28/17 06:00 MPV 10.8 fl (7.5-11.1) 05/28/17 06:00 Total Counted 100 05/24/17 20:49 Neutrophils % 82.1 % (42.8-82.8) 05/28/17 06:00 Neutrophils % (Manual) 87.0 % (42.8-82.8) H 05/24/17 20:49 Lymphocytes % 10.3 % (8-40) 05/28/17 06:00 Lymphocytes % (Manual) 7.0 % (8-40) L 05/24/17 20:49 Monocytes % 6.2 % (3.8-10.2) 05/28/17 06:00 Monocytes % (Manual) 5 % (3.8-10.2) 05/24/17 20:49 Eosinophils % 1.0 % (0-4.5) D 05/28/17 06:00 Basophils % 0.4 % (0-2.0) 05/28/17 06:00 Differential Comment 05/24/17 20:49 Platelet Estimate Adequate 05/24/17 20:49 Platelet Comment 05/24/17 20:49 ESR 107 mm/hr (0-20) H 05/24/17 20:49 PT with INR 18.00 SEC (9.98-11.88) H 05/25/17 05:10 INR 1.59 (0.82-1.09) H 05/25/17 05:10 PTT (Actin FS) 47.5 SECONDS (26.9-34.4) H 05/28/17 00:00 VBG pH 7.51 (7.32-7.42) H 05/24/17 20:49 POC VBG pCO2 29.0 mmHg (38-52) L 05/24/17 20:49 POC VBG pO2 110.0 mmHg (28-48) H 05/24/17 20:49 Mixed VBG HCO3 22.9 meq/L (19-25) 05/24/17 20:49 Sodium 135 mmol/L (136-145) L 05/28/17 06:00 Potassium 3.9 mmol/L (3.5-5.1) 05/28/17 06:00 Chloride 94 mmol/L (98-107) L 05/28/17 06:00 Carbon Dioxide 25 mmol/L (21-32) 05/28/17 06:00 Anion Gap 16 (8-16) 05/28/17 06:00 BUN 47 mg/dL (7-18) H D 05/28/17 06:00 Creatinine 7.4 mg/dL (0.7-1.3) H D 05/28/17 06:00 Creat Clearance w eGFR 7.49 (>60) 05/28/17 06:00 POC Glucometer 95.46658 UNITS (80-120) 05/26/17 21:48 Random Glucose 112 mg/dL (74-106) H 05/28/17 06:00 Hemoglobin A1c % 8.6 % (4.8-6.0) H D 05/25/17 05:10 Lactic Acid 1.7 mmol/L (0.4-2.0) 05/24/17 20:50 Calcium 7.8 mg/dL (8.5-10.1) L 05/28/17 06:00 Phosphorus 4.4 mg/dL (2.5-4.9) 05/27/17 05:00 Magnesium 2.0 mg/dL (1.8-2.4) 05/27/17 05:00 Total Bilirubin 0.9 mg/dL (0.2-1.0) D 05/28/17 06:00 AST 23 U/L (15-37) D 05/28/17 06:00 ALT 34 U/L (12-78) 05/28/17 06:00 Alkaline Phosphatase 86 U/L (45-117) 05/28/17 06:00 Creatine Kinase 106 IU/L (39-308) 05/24/17 20:49 Troponin I 0.60 ng/ml (0.00-0.05) H 05/25/17 12:00 C-Reactive Protein 25.9 MG/DL (0.00-0.3) H 05/24/17 20:49 Total Protein 5.9 g/dl (6.4-8.2) L 05/28/17 06:00 Albumin 2.1 g/dl (3.4-5.0) L 05/28/17 06:00 Triglycerides 171 mg/dL (35-160) H 05/25/17 05:10 Cholesterol 144 mg/dL (50-200) D 05/25/17 05:10 Total LDL Cholesterol 99 mg/dL (5-100) 05/25/17 05:10 HDL Cholesterol 16 mg/dL (40-60) L D 05/25/17 05:10 TSH 1.39 uIU/ml (0.358-3.74) 05/25/17 05:10 Random Vancomycin 4.577 ug/ml 05/28/17 06:00 Opiates Screen Negative ng/ml (ROIFAG=354) 05/26/17 06:45 Methadone Screen Negative ng/ml (NHIAHD=782) 05/26/17 06:45 Barbiturate Screen Negative ng/ml (KUCTBM=773) 05/26/17 06:45 Phencyclidine Screen Negative ng/ml (CUTOFF=25) 05/26/17 06:45 Ur Amphetamines Screen Negative ng/ml (XDBROJ=030) 05/26/17 06:45 MDMA (Ecstasy) Screen Negative ng/ml (UVFQXA=611) 05/26/17 06:45 Benzodiazepines Screen Negative ng/ml (CGBEUA=020) 05/26/17 06:45 Cocaine Screen Negative ng/ml (KZCQBA=059) 05/26/17 06:45 U Marijuana (THC) Screen Negative ng/ml (CUTOFF=50) 05/26/17 06:45 Hepatitis A Ab Total Negative (Negative) 05/25/17 08:16 Hep Bs Antigen Positive (Negative) H 05/25/17 08:16 Hep Bs Antibody Non reactive (.) 05/25/17 08:16 Hep B Core Total Ab Positive (Negative) H 05/25/17 08:16 Hepatitis C Antibody <0.1 s/co ratio (0.0-0.9) 05/25/17 08:16 HIV 1&2 Ag/Ab, 4th Gen Non reactive (Non Reactive) 05/25/17 05:10 Blood Type O POSITIVE 05/24/17 20:40 Antibody Screen Negative 05/24/17 20:40 Active Medications Generic Name Dose Route Start Last Admin Trade Name Freq PRN Reason Stop Dose Admin Aspirin 81 mg 05/25/17 10:00 05/27/17 10:17 Asa - PO 81 mg DAILY LORRI Administration Atorvastatin Calcium 10 mg 05/25/17 22:00 05/27/17 22:03 Lipitor - PO 10 mg HS LORRI Administration Heparin Sodium (Porcine) 5,000 unit 05/25/17 11:25 05/27/17 08:41 Heparin - IVPUSH 5,000 unit PRN PRN Administration Heparin Heparin Sodium (Porcine) 1,000 unit 05/25/17 11:30 05/28/17 00:56 Heparin - IVPUSH 1,000 unit PRN PRN Administration Heparin Heparin Sodium (Porcine) 25, 500 mls @ 20 mls/hr 05/24/17 22:15 05/28/17 04: 03 000 unit/ Sodium Chloride IV 1,600 unit/hr TITR LORRI 32 mls/hr Protocol Titration 1,000 UNIT/HR Piperacillin Sod/Tazobactam 50 mls @ 100 mls/hr 05/25/17 13:00 05/28/17 01:03 Sod 2.25 gm/ Dextrose IVPB 100 mls/hr Q8H-IV LORRI Administration Vancomycin HCl 1,000 mg/ 250 mls @ 250 mls/hr 05/28/17 06:00 Dextrose IVPB 05/28/17 06:59 ONCE ONE Protocol Insulin Aspart 1 vial 05/25/17 07:00 05/28/17 06:03 Novolog Vial Sliding Scale - SQ Not Given ACHS LORRI Protocol Lisinopril 2.5 mg 05/26/17 10:00 05/27/17 10:21 Prinivil PO Not Given DAILY LORRI Metoprolol Tartrate 25 mg 05/25/17 10:00 05/27/17 22:03 Lopressor - PO 25 mg BID LORRI Administration Tenofovir Disoproxil Fumarate 300 mg 05/26/17 17:20 05/26/17 18:37 Viread - PO 300 mg Q72H LORRI Administration ASSESSMENT/PLAN: 61yo M with PMHx of ESRD on HD (MWF), CAD, HTN, Hep B (on entecavir), IDDM who is generally noncompliant with meds and intermittently with HD sessions. He was admitted with CHF, new onset Afib w/ RVR, and sepsis likely secondary to diabetic foot ulcer # Sepsis likely 2/2 Osteomyelitis - Sepsis resolving. MRI+ Osteomyelitis on R 4th phalanx and L 1st and 2nd phalanx. - ABIs performed shows L sided MIGUE 0.75; R sided MIGUE NC. Dr Cason made aware, no vascular intervention needed at this time. Pt adamently refuses amputation. Podiatry Dr Sheth discussed with patient, agrees to debridement , scheduled for tmrw. NPO after midnight. Will hold heparin tonight. Patient is agreeable to long-term IV abx after that, willing to do it at home, refuses SNF. Discussed with ID, will need Vanc w/ dialysis sessions and Zosyn 2.25 Q8H via PICC line. Dose of Vanc 1g given today post dialysis. # New onset Afib w/ RVR - Continues to be in NSR. Could have been secondary to infection vs fluid overload from missing HD sessions. Pt was started on heparin gtt due to CHADSVASC 3. Discussed oral AC, and patient is considering NOAC. Will switch post surgery # ESRD - ESRD M, W, F continue # Chronic Back Pain - Given heat packs if needs relief. Avoid NSAIDS and narcotics. # Elevated Troponins - Demand ischemia from sepsis/rapid Afib + poor clearance from ESRD; unlikely ACS # IDDM - Hgb A1C 8.8, non compliant, BGMs ACHS + ISS # HTN - continue Lisinopril 2.5mg daily and Lopressor 25 BID now # Hepatitis B - will continue home tenofovir # Hx of HLD - continue Atorvastatin 10mg HS # Hx of CAD - continue home ASA 81 # FEN - No fluids, elec wnl, renal diet # PPx - Heparin gtt, no GI, PT ordered # Dispo - MRI+ osteo. Refusing amputation, debridement scheduled for tmrw, NPO after midnight, heparin held tonight. Then will need PICC line long-term antibiotics (Vanc 1g w/ dialysis + Zosyn 2.25 Q8H via PICC line. No vascular intervention necessary irma d/w Dr Barrett Cartwright MD - PGY1 Internal Medicine Visit type - Emergency Visit Emergency Visit: No - New Patient This patient is new to me today: No - Critical Care Critical Care patient: No - Discharge Referral Referred to [facility] Med P.C.: No
--- NOTE | 2017-05-28 10:54 | PN ---
Progress Note, Physician History of Present Illness: 61 year old, unkept, non compliant male with a history of DM, CAD, HTN , ESRD on HD (MWF), presents to the ER with complaints of worsening lightheadedness and right 4th toe infection that he noticed starting today. Patient states the lightheadedness started after dialysis on Friday. Accompanied symptoms include nausea, vomiting and NBNB diarrhea for the past week. He recently traveled to [place], no sick contacts. Denies WEBB, blurry vision, chest pain, sob, edema. What provoked him to come to the hospital other that stated symptoms was his right 4th toe was purple, red, swollen, painful when ambulates. - Current Medication List Current Medications: Active Medications Aspirin (Asa -) 81 mg PO DAILY LORRI Last Admin: 05/27/17 10:17 Dose: 81 mg Atorvastatin Calcium (Lipitor -) 10 mg PO HS LORRI Last Admin: 05/27/17 22:03 Dose: 10 mg Heparin Sodium (Porcine) (Heparin -) 5,000 unit IVPUSH PRN PRN PRN Reason: Heparin Last Admin: 05/27/17 08:41 Dose: 5,000 unit Heparin Sodium (Porcine) (Heparin -) 1,000 unit IVPUSH PRN PRN PRN Reason: Heparin Last Admin: 05/28/17 00:56 Dose: 1,000 unit Heparin Sodium (Porcine) 25, (000 unit/ Sodium Chloride) 500 mls @ 20 mls/hr IV TITR LORRI; 1,000 UNIT/HR PRN Reason: Protocol Last Titration: 05/28/17 09:24 Dose: 1,600 unit/hr, 32 mls/hr Piperacillin Sod/Tazobactam (Sod 2.25 gm/ Dextrose) 50 mls @ 100 mls/hr IVPB Q8H-IV LORRI Last Admin: 05/28/17 01:03 Dose: 100 mls/hr Vancomycin HCl 1,000 mg/ (Dextrose) 250 mls @ 250 mls/hr IVPB ONCE ONE PRN Reason: Protocol Stop: 05/28/17 06:59 Insulin Aspart (Novolog Vial Sliding Scale -) 1 vial SQ ACHS LORRI PRN Reason: Protocol Last Admin: 05/28/17 06:03 Dose: Not Given Lisinopril (Prinivil) 2.5 mg PO DAILY LORRI Last Admin: 05/27/17 10:21 Dose: Not Given Metoprolol Tartrate (Lopressor -) 25 mg PO BID [facility] Last Admin: 05/27/17 22:03 Dose: 25 mg Tenofovir Disoproxil Fumarate (Viread -) 300 mg PO Q72H [facility] Last Admin: 05/26/17 18:37 Dose: 300 mg - Objective Vital Signs: Vital Signs Temperature 98.6 F 05/28/17 10:00 Pulse Rate 76 05/28/17 10:20 Respiratory Rate 18 05/28/17 10:20 Blood Pressure 140/74 05/28/17 10:20 O2 Sat by Pulse Oximetry (%) 97 05/28/17 10:00 Eyes: Yes: WNL, Conjunctiva Clear, EOM Intact HENT: Yes: WNL, Atraumatic, Normocephalic Neck: Yes: WNL, Supple, Trachea Midline Cardiovascular: Yes: WNL, Regular Rate and Rhythm Respiratory: Yes: WNL, Regular, CTA Bilaterally Gastrointestinal: Yes: WNL, Normal Bowel Sounds Genitourinary: Yes: WNL Musculoskeletal: Yes: WNL Extremities: Yes: Cyanosis Edema: No Integumentary: Yes: WNL Neurological: Yes: WNL, Alert, Oriented ...Motor Strength: WNL Psychiatric: Yes: WNL Labs: CBC, BMP 05/28/17 06:00 05/28/17 06:00 INR, PTT INR 1.59 (0.82-1.09) H 05/25/17 05:10 Assessment/Plan IMP: ESRD on HD DM PAD LE osteo suspected CAD s/p CABG New onset AF, suspect PAF- now in sinus REC: 1.ICU monitoring 2. Echo 3. CHADS2 VASC = at least 3, merits AC. Continue heparin gtts and Metoprolol 4. ID work up as per PMD 5. ischemic w/u when stable 6. vascular surgery eval
--- NOTE | 2017-05-28 11:29 | PN ---
Progress Note (short form) - Note Progress Note: Renal Follow up for ESRD on HD Pt seen and examined during dialysis BF 400 via AVF, Pressures WNL BP is acceptable goal UF is 2.5L pt without complaints Vital Signs Temperature 98.6 F 05/28/17 10:00 Pulse Rate 74 05/28/17 10:50 Respiratory Rate 18 05/28/17 10:50 Blood Pressure 146/75 05/28/17 10:50 O2 Sat by Pulse Oximetry (%) 97 05/28/17 10:00 Intake & Output 05/25/17 05/26/17 05/27/17 05/28/17 23:59 23:59 23:59 23:59 Intake Total 573 058 4880 400 Balance 483 873 7188 400 Weight 105.823 kg NAD awake and alert RRR, NO M/R CTA no rales or wheeze Trace LE edema Dressing on both feet CBC, BMP 05/28/17 06:00 05/28/17 06:00 Current Medications Aspirin (Asa -) 81 mg PO DAILY LORRI Last Admin: 05/27/17 10:17 Dose: 81 mg Atorvastatin Calcium (Lipitor -) 10 mg PO HS LORRI Last Admin: 05/27/17 22:03 Dose: 10 mg Heparin Sodium (Porcine) (Heparin -) 5,000 unit IVPUSH PRN PRN PRN Reason: Heparin Last Admin: 05/27/17 08:41 Dose: 5,000 unit Heparin Sodium (Porcine) (Heparin -) 1,000 unit IVPUSH PRN PRN PRN Reason: Heparin Last Admin: 05/28/17 00:56 Dose: 1,000 unit Heparin Sodium (Porcine) 25, (000 unit/ Sodium Chloride) 500 mls @ 20 mls/hr IV TITR LORRI; 1,000 UNIT/HR PRN Reason: Protocol Last Titration: 05/28/17 09:24 Dose: 1,600 unit/hr, 32 mls/hr Piperacillin Sod/Tazobactam (Sod 2.25 gm/ Dextrose) 50 mls @ 100 mls/hr IVPB Q8H-IV LORRI Last Admin: 05/28/17 01:03 Dose: 100 mls/hr Vancomycin HCl 1,000 mg/ (Dextrose) 250 mls @ 166.667 mls/hr IVPB ONCE ONE PRN Reason: Protocol Stop: 05/28/17 13:29 Insulin Aspart (Novolog Vial Sliding Scale -) 1 vial SQ ACHS [facility] PRN Reason: Protocol Last Admin: 05/28/17 06:03 Dose: Not Given Lisinopril (Prinivil) 2.5 mg PO DAILY [facility] Last Admin: 05/27/17 10:21 Dose: Not Given Metoprolol Tartrate (Lopressor -) 25 mg PO BID [facility] Last Admin: 05/27/17 22:03 Dose: 25 mg Tenofovir Disoproxil Fumarate (Viread -) 300 mg PO Q72H [facility] Last Admin: 05/26/17 18:37 Dose: 300 mg 61 yom with ESRD on HD, CAD, HTN, Hepatitis B (on entecavir but no recent follow UP), IDDM non compliant, admitted with CHF in the setting of missing HD, Afib with RVR, and sepsis diabetic foot with superimposed cellulitis/likely osteomyelitis. #ESRD on Hd with Fluid overload HD today with UF as tolerated will continue 3x weekly HD Renal diet #LE Wound/Leukocytosis Continue Abx as per ID will redose Vanco today with HD Vascular follow up f/u duplex studies #Anemia Continue MARK with HD no acute indication for transfusion at this time Thank you Jose Zavaleta DO
[2017-05-28 11:30] LABS: INR 1.55 (0.82-1.09); PROTHROMBIN TIME (PATIENT) 17.5 SEC (9.98-11.88)
[2017-05-28] MEDS ORDERED: VANCOMYCIN 1,000 MG in DEXTROSE 5%-WATER - 250 ML IVPB ONE (12:00)
--- NOTE | 2017-05-28 12:09 | PN ---
Teaching Attending Note Name of Resident: Pankaj Cartwright ATTENDING PHYSICIAN STATEMENT I saw and evaluated the patient. I reviewed the resident's note and discussed the case with the resident. I agree with the resident's findings and plan as documented. SUBJECTIVE:refused to speak with me this morning OBJECTIVE: Last Vital Signs Temp Pulse Resp BP Pulse Ox 98.6 F 73 18 133/73 97 05/28/17 10:00 05/28/17 11:50 05/28/17 11:50 05/28/17 11:50 05/28/17 10:00 refused my exam ASSESSMENT AND PLAN: 61yo M with PMH ESRD, HBV on treatment, DM, CHF presented to the ER with complaints of R foot infection that was worsening 1. Sepsis due to Diabetic foot ulcer with underlying OM of the foot-OM confirmed on MRI. pt is adamantly refusing amputation. PVR done showing good blood flow to foot. as per podiatry no indication for debridement if pt is refusing surgery. plan is for 6-8weeks of IV abx therapy. Will be on Zosyn Q8H and vanco with HD. Vanco level low today. will increase dose. check prior to next HD. on abx day4. podiatry, vascular, and ID on board. echo negative for endocarditis 2. New onset afib- with RVR. self converted to NSR. on hep ggt. metoprolol. cardio on board. will need to convert to NOAC once confirmed no procedures are planned. 3. Tropinemia- flat trend 0.87. should have ischemic workup at later time. on asa 4. ESRD on HD- cont HD per normal schedule. HD today. fluid restriction 5. DM- A1c 8.6. controlled. cont iss. not requiring much coverage. 6. Normocytic anemia- no signs of bleeding. iron studies pending. no indication for txn. cont hep ggt 7. HBV- on tenofovir 8. DVT ppx- hep ggt 9. can d/c tele monitoring. PT eval. dispo planning
[2017-05-28] MEDS ORDERED: LACTOBACILLUS ACIDOPHILUS 1 EACH TAB (FP) PO SCH (12:15)
[2017-05-28] MEDS ORDERED: BANATROL PLUS POWDER PACKET PO SCH (12:30)
--- NOTE | 2017-05-28 12:44 | PN ---
Progress Note (short form) - Note Progress Note: Podiatry: Seen/evaluated at bedside, NAD. Denies F/V/N/C/SOB/CP. Afebrile, VSS. SITA: R foot: large necrotic patch dorsal lateral midfoot extending to 3rd/4th digits. (+) purulent drainage from 4th digit. Cyanosis and gangrene of 3rd and 4th toes with duskiness. Periwound erythema mildly improved. No soft tissue crepitus. (+) fluctuance to dorsal midfoot and 3rd/4th digits. WBC: 19.8 Blood Cx: no growth MRI R foot: osteomyelitis, fluid collection over 3rd-5th MTPJs Imp: 61 year old IDDM M with R foot abscess, osteomyelitis, gangrene 1. IV abx per ID 2. DSD R foot 3. Risks, benefits, alternatives to sx discussed at length with patient. He is now amenable to debridement, however is still refusing amputation of 3rd/4th digits. I have explained to him at length the risk of worsening infection, progression of gangrene of digits, transmetatarsal amputation, below knee amputation and even loss of life. He states he will do what is necessary "short of amputation". Prognosis is quite guarded given patient's refusal to consent for necessary amputation. 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 4. NPO at midnight. Please hold heparin drip before surgery. 5. Will follow. Rosaura Sheth DPM
[2017-05-28] MEDS: ASPIRIN 81 MG CHEWABLE TABLETS PO SCH (13:53)
[2017-05-28] MEDS: METOPROLOL TARTRATE 25 MG TABLET (FP) PO SCH ×2 (13:53→21:52)
[2017-05-28] MEDS: LISINOPRIL 5 MG TABLET (FP) PO SCH ×2 (13:53→16:00)
--- NOTE | 2017-05-28 14:43 | MSN ---
Progress Note (short form) - Note Progress Note: SUBJECTIVE: Pt refused to speak to me and requested I leave the room. OBJECTIVE Last Vital Signs Temp Pulse Resp BP Pulse Ox 98.6 F 78 18 148/76 97 05/28/17 10:00 05/28/17 13:25 05/28/17 13:25 05/28/17 13:25 05/28/17 10:00 Pt refused physical exam Laboratory Last Values WBC 19.8 K/mm3 (4.0-10.0) H 05/28/17 06:00 RBC 3.09 M/mm3 (4.00-5.60) L 05/28/17 06:00 Hgb 9.3 GM/dL (11.7-16.9) L 05/28/17 06:00 Hct 28.6 % (35.4-49) L 05/28/17 06:00 MCV 92.3 fl (80-96) 05/28/17 06:00 MCH 30.2 pg (25.7-33.7) 05/28/17 06:00 MCHC 32.7 g/dl (32.0-35.9) 05/28/17 06:00 RDW 13.5 % (11.9-15.9) 05/28/17 06:00 Plt Count 222 K/MM3 (134-434) 05/28/17 06:00 MPV 10.8 fl (7.5-11.1) 05/28/17 06:00 Total Counted 100 05/24/17 20:49 Neutrophils % 82.1 % (42.8-82.8) 05/28/17 06:00 Neutrophils % (Manual) 87.0 % (42.8-82.8) H 05/24/17 20:49 Lymphocytes % 10.3 % (8-40) 05/28/17 06:00 Lymphocytes % (Manual) 7.0 % (8-40) L 05/24/17 20:49 Monocytes % 6.2 % (3.8-10.2) 05/28/17 06:00 Monocytes % (Manual) 5 % (3.8-10.2) 05/24/17 20:49 Eosinophils % 1.0 % (0-4.5) D 05/28/17 06:00 Basophils % 0.4 % (0-2.0) 05/28/17 06:00 Differential Comment 05/24/17 20:49 Platelet Estimate Adequate 05/24/17 20:49 Platelet Comment 05/24/17 20:49 ESR 107 mm/hr (0-20) H 05/24/17 20:49 PT with INR 17.50 SEC (9.98-11.88) H 05/28/17 10:45 INR 1.55 (0.82-1.09) H 05/28/17 10:45 PTT (Actin FS) 47.6 SECONDS (26.9-34.4) H 05/28/17 09:50 VBG pH 7.51 (7.32-7.42) H 05/24/17 20:49 POC VBG pCO2 29.0 mmHg (38-52) L 05/24/17 20:49 POC VBG pO2 110.0 mmHg (28-48) H 05/24/17 20:49 Mixed VBG HCO3 22.9 meq/L (19-25) 05/24/17 20:49 Sodium 135 mmol/L (136-145) L 05/28/17 06:00 Potassium 3.9 mmol/L (3.5-5.1) 05/28/17 06:00 Chloride 94 mmol/L (98-107) L 05/28/17 06:00 Carbon Dioxide 25 mmol/L (21-32) 05/28/17 06:00 Anion Gap 16 (8-16) 05/28/17 06:00 BUN 47 mg/dL (7-18) H D 05/28/17 06:00 Creatinine 7.4 mg/dL (0.7-1.3) H D 05/28/17 06:00 Creat Clearance w eGFR 7.49 (>60) 05/28/17 06:00 POC Glucometer 95.73594 UNITS (80-120) 05/26/17 21:48 Random Glucose 112 mg/dL (74-106) H 05/28/17 06:00 Hemoglobin A1c % 8.6 % (4.8-6.0) H D 05/25/17 05:10 Lactic Acid 1.7 mmol/L (0.4-2.0) 05/24/17 20:50 Calcium 7.8 mg/dL (8.5-10.1) L 05/28/17 06:00 Phosphorus 6.0 mg/dL (2.5-4.9) H D 05/28/17 06:00 Magnesium 2.0 mg/dL (1.8-2.4) 05/27/17 05:00 Ferritin 986.531 ng/ml (16.4-293.9) H 05/28/17 06:00 Total Bilirubin 0.9 mg/dL (0.2-1.0) D 05/28/17 06:00 AST 23 U/L (15-37) D 05/28/17 06:00 ALT 34 U/L (12-78) 05/28/17 06:00 Alkaline Phosphatase 86 U/L (45-117) 05/28/17 06:00 Creatine Kinase 106 IU/L (39-308) 05/24/17 20:49 Troponin I 0.60 ng/ml (0.00-0.05) H 05/25/17 12:00 C-Reactive Protein 25.9 MG/DL (0.00-0.3) H 05/24/17 20:49 Total Protein 5.9 g/dl (6.4-8.2) L 05/28/17 06:00 Albumin 2.1 g/dl (3.4-5.0) L 05/28/17 06:00 Triglycerides 171 mg/dL (35-160) H 05/25/17 05:10 Cholesterol 144 mg/dL (50-200) D 05/25/17 05:10 Total LDL Cholesterol 99 mg/dL (5-100) 05/25/17 05:10 HDL Cholesterol 16 mg/dL (40-60) L D 05/25/17 05:10 TSH 1.39 uIU/ml (0.358-3.74) 05/25/17 05:10 Random Vancomycin 4.577 ug/ml 05/28/17 06:00 Vancomycin Pre-Dose 4.481 ug/ml (5.0-10.0) L* 05/28/17 10:00 Opiates Screen Negative ng/ml (FXJNNW=242) 05/26/17 06:45 Methadone Screen Negative ng/ml (ALGSBI=861) 05/26/17 06:45 Barbiturate Screen Negative ng/ml (LELMUX=937) 05/26/17 06:45 Phencyclidine Screen Negative ng/ml (CUTOFF=25) 05/26/17 06:45 Ur Amphetamines Screen Negative ng/ml (TXXOJK=959) 05/26/17 06:45 MDMA (Ecstasy) Screen Negative ng/ml (ZPBUBH=370) 05/26/17 06:45 Benzodiazepines Screen Negative ng/ml (MNKUDO=243) 05/26/17 06:45 Cocaine Screen Negative ng/ml (POTCUU=983) 05/26/17 06:45 U Marijuana (THC) Screen Negative ng/ml (CUTOFF=50) 05/26/17 06:45 Hepatitis A Ab Total Negative (Negative) 05/25/17 08:16 Hep Bs Antigen Positive (Negative) H 05/25/17 08:16 Hep Bs Antibody Non reactive (.) 05/25/17 08:16 Hep B Core Total Ab Positive (Negative) H 05/25/17 08:16 Hepatitis C Antibody <0.1 s/co ratio (0.0-0.9) 05/25/17 08:16 HIV 1&2 Ag/Ab, 4th Gen Non reactive (Non Reactive) 05/25/17 05:10 Blood Type O POSITIVE 05/24/17 20:40 Antibody Screen Negative 05/24/17 20:40 Home Medications Medication Instructions Recorded Metoprolol Succinate [Toprol Xl -] 25 mg PO DAILY 12/20/16 Aspirin [ASA -] 81 mg PO DAILY 12/23/16 Tenofovir Disoproxil Fumarate 300 mg PO MOWEFR 05/26/17 [Viread] Microbiology 05/27/17 21:05 Stool Clostridium difficile Antigen (OZZIE) - Final 05/27/17 21:05 Stool Clostridium difficile Toxin Assay - Final 05/24/17 20:49 Blood - Peripheral Venous Blood Culture - Preliminary NO GROWTH OBTAINED AFTER 72 HOURS, INCUBATION TO CONTINUE FOR 2 DAYS. 05/24/17 20:40 Blood - Peripheral Venous Blood Culture - Preliminary NO GROWTH OBTAINED AFTER 72 HOURS, INCUBATION TO CONTINUE FOR 2 DAYS. A/P Pt is a 61 y/o M with PMhx of ESRD (on HD MWF), HTN, HepB, DM type II ( noncompliant with meds), CAD (s/p CABG) presented to the ED with nausea, dizziness, generalized weakness, and R toe infection, found to have osteomyelitis secondary to diabetic foot ulcer. 1. Sepsis secondary to osteomyelitis -sepsis resolved -MRI confirmed b/l osteomyelitis -PVR results show an MIGUE of 0.75 of L foot; R foot inconclusive; seems to demonstrate good arterial flow b/l. No vascular intervention needed at this point -Pt agreeable to debridement (scheduled for tomorrow - heparin will be held 2hrs prior to procedure and NPO after midnight) but pt still adamantly refuses amputation; pt explained and fully understands the risks associated with the refusal of amputation -continue vanc/zosyn 2.25 mg Q8H (day 4) -per ID, [employer] antibiotic tx of vanc 1 g/zosyn 2.25 mg with PICC line for at least 6 weeks can be done. Pt agreeable to the plan. Refused going to a SNF and would like to do it himself 2. ESRD -HD today -nephrology consulted; continue HD as planned (MWF) 3. New onset A.fib with RVR of 122 -has been stable with NSR for the past couple of days -rate controlled with lopressor 25 mg -heparin gtt due to CHADSVASC >3; pt explained the future of risk of strokes given the score and is agreeable to oral AC; NOAC would be a better option -echo normal without any clots or valvular issues -cardiology consulted 4. Chronic back pain -likely due bhargavi multiple back surgeries and lying in bed -Avoid NSAIDS; heating pads as needed 5. DM -HbA1c 8.6 -ISS; requiring very little coverage -BGMs ACHS 6. HTN -well controlled with lisinopril 2.5 mg QD and metoprolol XL 25 mg BID 7. CAD -s/p CABG and stents -aspirin 81 mg QD -per cardiology, ischemic work-up at later time when stable 8. HepB -tenofovir 300 mg 3x/week 9. HLD -lipitor 10 mg HS 10. FEN -no IVFs -lytes wnl; continue monitoring, replete as necessary -renal diet; NPO after midnight for procedure tomorrow 11. PPx -DVT: heparin gtt -No GI ppx Dispo: Pt scheduled for debridement tomorrow (NPO after midnight, heparin held 2 hrs prior); refused amputation so will need [employer] antibiotics (vanc/zosyn ) via PICC line Kaila Hanson, MS3
[2017-05-28] MEDS ORDERED: BANATROL PLUS POWDER PACKET PO PRN (14:50)
[2017-05-28] MEDS ORDERED: HEPARIN - 25,000 UNIT in SODIUM CHLORIDE 495 ML IV SCH (16:35)
[2017-05-28] MEDS ORDERED: INSULIN (NOVOLOG) ASPART 100 UNITS/ML 10ML VIAL ONE ×2 (16:47→17:15)
[2017-05-28] MEDS: ATORVASTATIN CA 10 MG TABLET (FP) PO SCH (21:52)
[2017-05-29] MEDS ORDERED: HEPARIN NA (PORCINE) 5,000 UNITS/ML 1ML VIAL IVPUSH PRN ×4 (00:29)
[2017-05-29] MEDS ORDERED: PT OWN MED DRAWER 7, Y5N ONE ×2 (02:16→11:43)
[2017-05-29] MEDS: PIPERACILLIN/TAZOB 2.25 GM 2.25 GM in DEXTROSE 5%-WATER - 50 ML IVPB SCH ×3 (02:17→17:52)
[2017-05-29] MEDS: INSULIN SLIDING SCALE (NOVOLOG) 1 VIAL SQ SCH ×4 (06:19→21:22)
[2017-05-29 06:31] LABS: MCH 31.1 pg (25.7-33.7); MCHC 33.5 g/dl (32.0-35.9); MEAN CELL VOLUME 92.8 fl (80-96); MEAN PLT VOLUME 10.7 fl (7.5-11.1); PLATELET COUNT 249 K/MM3 (134-434); RDW 13.5 % (11.9-15.9); WHITE BLOOD COUNT 17.4 K/mm3 (4.0-10.0)
[2017-05-29 06:58] LABS: ALBUMIN 2.1 g/dl (3.4-5.0); ANION GAP 12 (8-16); CALCIUM 7.8 mg/dL (8.5-10.1); CO2 29 mmol/L (21-32); GLUCOSE,RANDOM 146 mg/dL (74-106)
[2017-05-29 07:03] LABS: ALK PHOS 89 U/L (45-117); BILIRUBIN,TOTAL 0.8 mg/dL (0.2-1.0); CREATININE 5.1 mg/dL (0.7-1.3); SGOT/AST 18 U/L (15-37); SGPT/ALT 30 U/L (12-78); TOT PROT 5.8 g/dl (6.4-8.2)
[2017-05-29] MEDS ORDERED: MIDAZOLAM HCL 2 MG/2 ML SINGLE DOSE VIAL ONE ×2 (07:13)
[2017-05-29] MEDS ORDERED: LIDOCAINE HCL 1%, 10 MG/ML (20ML VIAL) ONE (07:14)
[2017-05-29] MEDS ORDERED: BUPIVACAINE HCL/PF 0.5% (5MG/ML) 10 ML VIAL ONE (07:14)
[2017-05-29] MEDS ORDERED: LIDOCAINE HCL 2% (20ML MULTI-DOSE VIAL) NR ONE (07:14)
[2017-05-29] MEDS ORDERED: SUCCINYLCHOLINE CHLORIDE 200 MG/10 ML VIAL ONE (07:14)
[2017-05-29] MEDS ORDERED: ePHEDrine SULFATE 50 MG/1 ML AMPULE ONE (07:14)
[2017-05-29] MEDS ORDERED: PROPOFOL 20 ML ONE ×5 (07:14)
--- NOTE | 2017-05-29 07:40 | PN ---
Progress Note (short form) - Note Progress Note: Podiatry Pre-Op: Mr. Hernandez was seen and evaluated at bedside in holding. Risks, benefits and alternatives to surgery discussed at length with the patient. He understands the risk of worsening infection, worsening ischemia of toes, sepsis, loss of limb and loss of life. He understands fully and wishes to proceed with a debridement alone, no amputations. Informed consent was obtained. Plan for R foot debridement/lavage, L foot debridement of ulcer under MAC/Local. Rosaura Sheth DPM
[2017-05-29] MEDS ORDERED: LIDOCAINE HCL 2% (50ML VIAL) INF ONE (08:05)
[2017-05-29 08:08] LABS: SERUM IRON 25 ug/dL (38-169); TOTAL IRON BINDING CAPACITY 121 ug/dL (250-450); UIBC 96 ug/dL (111-343)
--- NOTE | 2017-05-29 08:23 | PN ---
Physical Exam: SUBJECTIVE: Patient seen and examined. Was being wheeled to the OR. States he slept well last night. No acute events overnight. Heparin drip held and was NPO since midnight OBJECTIVE: Vital Signs Period Temp Pulse Resp BP Sys/Palafox Pulse Ox Last 24 Hr 98 F-98.8 F 70-78 18-18 127-173/64-84 97-98 Unable to assess this AM, was in OR Active Medications Generic Name Dose Route Start Last Admin Trade Name Freq PRN Reason Stop Dose Admin Aspirin 81 mg 05/29/17 10:00 Asa - PO DAILY LORRI Atorvastatin Calcium 10 mg 05/29/17 22:00 Lipitor - PO HS LORRI Heparin Sodium (Porcine) 5,000 unit 05/29/17 00:29 Heparin - IVPUSH PRN PRN Heparin Heparin Sodium (Porcine) 1,000 unit 05/29/17 00:29 Heparin - IVPUSH PRN PRN Heparin Heparin Sodium (Porcine) 25, 500 mls @ 20 mls/hr 05/28/17 16:35 05/28/17 17: 07 000 unit/ Sodium Chloride IV 1,600 unit/hr TITR LORRI 32 mls/hr Protocol Titration 1,000 UNIT/HR Piperacillin Sod/Tazobactam 50 mls @ 100 mls/hr 05/29/17 02:00 05/29/17 02:17 Sod 2.25 gm/ Dextrose IVPB 100 mls/hr Q8H-IV LORRI Administration Insulin Aspart 1 vial 05/29/17 07:00 05/29/17 06:19 Novolog Vial Sliding Scale - SQ Not Given ACHS [facility] Protocol Lactobacillus Acidophilus 1 tab 05/29/17 10:00 Bacid - PO DAILY LORRI Lisinopril 2.5 mg 05/29/17 10:00 Prinivil PO DAILY LORRI Metoprolol Tartrate 25 mg 05/29/17 10:00 Lopressor - PO BID LORRI Tenofovir Disoproxil Fumarate 300 mg 05/29/17 12:00 Viread - PO Q3D@1200 [facility] ASSESSMENT/PLAN: 61yo M with PMHx of ESRD on HD (MWF), CAD, HTN, Hep B (on entecavir), IDDM who is generally noncompliant with meds and intermittently with HD sessions. He was admitted with CHF, new onset Afib w/ RVR, and sepsis likely secondary to diabetic foot ulcer # Sepsis likely 2/2 Osteomyelitis - Sepsis resolving. MRI+ Osteomyelitis on R 4th phalanx and L 1st and 2nd phalanx. - S/p bilateral debridement on 05/29. ABIs done, Vascular surgery to perform no vascular intervention. Will need 6 weeks of antibiotics (Vanc w/ dialysis and Zosyn TID). Pt willing to do this at home, adamantly denies SNF placement. Vanc trough prior to HD tmrw. # New onset Afib w/ RVR - Continues to be in NSR. Could have been secondary to infection vs fluid overload from missing HD sessions. Pt was started on heparin gtt due to CHADSVASC 3. Pt is NOAC candidate, agreeable to NOAC. Risks/benefits explained. Will f/u with podiatry to see if can start today # ESRD - MWF, next session tomorrow # Soft Stool - Likely from antibiotics, banatol flakes PRN # Chronic Back Pain - Given heat packs if needs relief. Avoid NSAIDS and narcotics. # Elevated Troponins - Demand ischemia from sepsis/rapid Afib + poor clearance from ESRD; unlikely ACS # IDDM - Hgb A1C 8.8, non compliant, BGMs ACHS + ISS # HTN - continue Lisinopril 2.5mg daily and Lopressor 25 BID now # Hepatitis B - will continue home Tenofovir # Hx of HLD - continue Atorvastatin 10mg HS # Hx of CAD - continue home ASA 81 # FEN - No fluids, elec wnl, renal diet # PPx - Heparin gtt, no GI, PT ordered # Dispo - MRI+ osteo. Needs 6 weeks of IV antibiotics at home as stated above. Likely d/c tmrw with PICC line. Infusion company spoke to patient d/w Dr Barrett Cartwright MD - PGY1 Internal Medicine Visit type - Emergency Visit Emergency Visit: No - New Patient This patient is new to me today: No - Critical Care Critical Care patient: No - Discharge Referral Referred to [facility] No
[2017-05-29] MEDS ORDERED: oxyCODONE HCL 5 MG TABLET PO PRN (08:54)
--- NOTE | 2017-05-29 08:56 | OP ---
Operative Note - Note: Operative Date: 05/29/17 Pre-Operative Diagnosis: R foot DM foot infection, abscess, cellulitis, osteomyelitis. L foot DM foot ulcer Operation: R foot debridement and lavage. L foot debridement of ulcer Findings: Extensive abscess formation with liquefactive abscess tissue to the level of subcutaneous tissue, muscle, tendon and tendon sheath, capsule of 3rd, 4th, 5th metatarsals Post-Operative Diagnosis: Same as Pre-op Surgeon: Demetri Sheth Anesthesia: Local, MAC Specimens Removed: abscess, right foot Estimated Blood Loss (mls): 25 Instrument used (Debridements only): #15 blade scalpel, scissors Operative Report Dictated: Yes
[2017-05-29] MEDS ORDERED: LIDOCAINE HCL/PF 2% SDV 5ML VIAL ONE (09:32)
--- NOTE | 2017-05-29 09:45 | OP ---
DATE OF OPERATION: 05/29/2017 PREOPERATIVE DIAGNOSIS: 1. Right foot diabetic foot infection, abscess, cellulitis, and osteomyelitis. 2. Left foot diabetic foot ulcer. POSTOPERATIVE DIAGNOSIS: 1. Right foot diabetic foot infection, abscess, cellulitis, and osteomyelitis. 2. Left foot diabetic foot ulcer. PROCEDURE: 1. Right foot debridement and lavage. 2. Left foot debridement of ulcer. SURGEON: Demetri Sheth DPM FILLING STATION LABORER: None. ANESTHESIA: Local with IV sedation. HEMOSTASIS: Surgical dissection. ESTIMATED BLOOD LOSS: 25 mL. PATHOLOGY: Abscess, right foot. COMPLICATIONS: None. DESCRIPTION OF PROCEDURE: The patient was brought to the operating room and placed on the operating table in the supine position. Following the induction of IV sedation, local anesthesia was achieved utilizing 15 mL of 2% lidocaine plain. The bilateral feet were then scrubbed, prepped, and draped in the usual aseptic fashion. I directed my attention first to the right foot, where a severe diabetic foot infection with gangrenous patch over the dorsal lateral midfoot was visualized and appreciated. In addition, there is gangrene and early signs of mummification of the 3rd and 4th toes. I had discussed with the patient preoperatively in regards to treatment option, and he adamantly refused amputation of toes. I began the procedure by performing an excisional debridement of the necrotic patch. Immediately upon incision, there was a large amount of purulent material. I continued my debridement deep and excisionally to the level of subcutaneous tissue, muscle, and capsule of the 3rd, 4th, and 5th metatarsals. Of note, there was liquefactive purulent tissue indicative of severe abscess formation. The abscess was present to the level of the 3rd, 4th, and 5th metatarsals. The abscess tissue was excisionally debrided until viable tissue remained and appropriate soft tissue culture was obtained. The abscess tissue was sent to Pathology for analysis. Next, the surgical site was copiously irrigated with sterile saline mixed with bacitracin in a pulse lavage fashion. The surgical site was packed open with 0.25-inch Iodoform packing. Next, I directed my attention to the left foot, where a submetatarsal diabetic foot ulcer was visualized and appreciated. An excisional debridement was performed to the level of subcutaneous tissue utilizing a No. 15 blade. The ulcer bed was scored until bleeding granular tissue persisted. The surgical site was copiously irrigated with sterile saline. Following the conclusion of the procedures, the surgical sites were covered with sterile gauze, and sterile compressive dressing was applied to bilateral feet consisting of sterile gauze, Pulliam, Kerlix, and an Otilio wrap. The patient tolerated the procedure and anesthesia well without complications. He was transferred from the operating room to the recovery unit with vital signs stable and neurovasculature intact to the feet. DWIGHT DIEGO/[id number] cc: [facility] Podiatry
[2017-05-29] MEDS: ASPIRIN 81 MG CHEWABLE TABLETS PO SCH (10:37)
[2017-05-29] MEDS: MUPIROCIN 2% TOPICAL OINTMENT FOR DECOLONIZATION NS SCH ×2 (10:38→21:22)
[2017-05-29] MEDS: LACTOBACILLUS ACIDOPHILUS 1 EACH TAB (FP) PO SCH (10:38)
[2017-05-29] MEDS: METOPROLOL TARTRATE 25 MG TABLET (FP) PO SCH ×2 (10:39→21:22)
[2017-05-29] MEDS: LISINOPRIL 5 MG TABLET (FP) PO SCH (10:39)
[2017-05-29] MEDS ORDERED: TENOFOVIR DISOPROXIL FUMARATE 300 MG TABLET PO SCH (12:00)
--- NOTE | 2017-05-29 12:06 | PN ---
Progress Note (short form) - Note Progress Note: Renal Follow up for ESRD on HD Pt seen and examined in Tele awake and alert reports having diarrhea (nurse reports only one episode of loose stools) s/p debridement of both legs s/p dialysis yesterday Vital Signs Temperature 98.1 F 05/29/17 09:00 Pulse Rate 63 05/29/17 09:47 Respiratory Rate 18 05/29/17 09:47 Blood Pressure 123/66 05/29/17 09:47 O2 Sat by Pulse Oximetry (%) 98 05/28/17 20:51 Intake & Output 05/26/17 05/27/17 05/28/17 05/29/17 23:59 23:59 23:59 23:59 Intake Total 696 1124 400 680 Output Total 25 Balance 696 1124 400 655 NAD awake and alert RRR, NO M/R CTA no rales or wheeze Trace LE edema Dressing on both feet CBC, BMP 05/29/17 05:00 05/29/17 05:00 Current Medications Aspirin (Asa -) 81 mg PO DAILY LORRI Last Admin: 05/29/17 10:37 Dose: Not Given Atorvastatin Calcium (Lipitor -) 10 mg PO HS LORRI Chlorhexidine Gluconate (Hibiclens For Decolonization -) 1 applic TP HS LORRI Heparin Sodium (Porcine) (Heparin -) 5,000 unit IVPUSH PRN PRN PRN Reason: Heparin Heparin Sodium (Porcine) (Heparin -) 1,000 unit IVPUSH PRN PRN PRN Reason: Heparin Heparin Sodium (Porcine) 25, (000 unit/ Sodium Chloride) 500 mls @ 20 mls/hr IV TITR LORRI; 1,000 UNIT/HR PRN Reason: Protocol Last Titration: 05/28/17 17:07 Dose: 1,600 unit/hr, 32 mls/hr Piperacillin Sod/Tazobactam (Sod 2.25 gm/ Dextrose) 50 mls @ 100 mls/hr IVPB Q8H-IV LORRI Last Admin: 05/29/17 10:39 Dose: 100 mls/hr Insulin Aspart (Novolog Vial Sliding Scale -) 1 vial SQ ACHS LORRI PRN Reason: Protocol Last Admin: 05/29/17 06:19 Dose: Not Given Lactobacillus Acidophilus (Bacid -) 1 tab PO DAILY LORRI Last Admin: 05/29/17 10:38 Dose: 1 tab Lisinopril (Prinivil) 2.5 mg PO DAILY [facility] Last Admin: 05/29/17 10:39 Dose: 2.5 mg Metoprolol Tartrate (Lopressor -) 25 mg PO BID [facility] Last Admin: 05/29/17 10:39 Dose: 25 mg Mupirocin (Bactroban Ointment (For Decolonization) -) 1 applic NS BID [facility] Stop: 06/03/17 09:59 Last Admin: 05/29/17 10:38 Dose: 1 applic Oxycodone HCl (Roxicodone -) 5 mg PO Q4H PRN PRN Reason: PAIN LEVEL 1-5 Sodium Hypochlorite (Dakin's Solution 0.25% (Half-Strength) -) 1 applic TP DAILY [facility] Tenofovir Disoproxil Fumarate (Viread -) 300 mg PO Q3D@1200 [facility] 61 yom with ESRD on HD, CAD, HTN, Hepatitis B (on entecavir but no recent follow UP), IDDM non compliant, admitted with CHF in the setting of missing HD, Afib with RVR, and sepsis diabetic foot with superimposed cellulitis/likely osteomyelitis. #ESRD on Hd with Fluid overload s/p dialysis yesterday, no acute indication for treatment today next HD tomorrow #LE Wound/Leukocytosis Continue Abx as per ID will redose Vanco with Hd Vascular follow up s/p debridement #Anemia Continue MARK with HD no acute indication for transfusion at this time Thank you Jose Zavaleta DO
[2017-05-29] MEDS ORDERED: INSULIN (NOVOLOG) ASPART 100 UNITS/ML 10ML VIAL ONE (12:50)
--- NOTE | 2017-05-29 12:50 | PN ---
Teaching Attending Note Name of Resident: Pankaj Cartwright ATTENDING PHYSICIAN STATEMENT I saw and evaluated the patient. I reviewed the resident's note and discussed the case with the resident. I agree with the resident's findings and plan as documented. SUBJECTIVE:asymptomatic. states pain is controlled. denies Cp, SOB, fever, chills, N/V/C/D adamantly refusing ELIZABETH placement for termite control servicer IV abx therapy. agreeable to administering medication Q8H OBJECTIVE: Last Vital Signs Temp Pulse Resp BP Pulse Ox 98.1 F 63 18 123/66 98 05/29/17 09:00 05/29/17 09:47 05/29/17 09:47 05/29/17 09:47 05/28/17 20:51 General NAD Extremiites B/L feet wrapped. mild bleeding noted on bandage ASSESSMENT AND PLAN: 61yo M with PMH ESRD, HBV on treatment, DM, CHF presented to the ER with complaints of R foot infection that was worsening 1. Sepsis due to Diabetic foot ulcer with underlying OM of the foot-OM confirmed on MRI. pt is adamantly refusing amputation. s/p debridement of B/L feet. will need [facility] ab[facility] therapy. will need tunneled catheter. zosyn and vanco with HD. on abx day 5. podiatry, vascular, and ID on board. echo negative for endocarditis 2. New onset afib- with RVR. self converted to NSR. hep ggt on hold for surgery. will speak with podiatry about initiating NOAC vs hep ggt at this time. if no significant bleeding should be safe for NOAC. metoprolol. cardio on board. 3. Tropinemia- flat trend 0.87. should have ischemic workup at later time. on asa 4. ESRD on HD- cont HD per normal schedule. HD today. fluid restriction 5. DM- A1c 8.6. controlled. cont iss. not requiring much coverage. 6. Normocytic anemia-anemia of chronic disease. no signs of bleeding. no indication for txn. cont hep ggt 7. HBV- on tenofovir 8. DVT ppx- hep ggt 9. pt refusing ELIZABETH. dispo planning. can likely d/c tomorrow.
--- NOTE | 2017-05-29 12:51 | EKG ---
Test Reason : Blood Pressure : / mmHG Vent. Rate : 067 BPM Atrial Rate : 067 BPM P-R Int : 164 ms QRS Dur : 086 ms QT Int : 474 ms P-R-T Axes : 054 004 004 degrees QTc Int : 500 ms SINUS RHYTHM WITH OCCASIONAL PREMATURE VENTRICULAR COMPLEXES POSSIBLE LEFT ATRIAL ENLARGEMENT ANTEROSEPTAL INFARCT , AGE UNDETERMINED PROLONGED QT ABNORMAL ECG WHEN COMPARED WITH ECG OF 24-MAY-2017 21:15, SIGNIFICANT CHANGES HAVE OCCURRED Confirmed by ANTHONY SCOTT MD ([id number]) on 05/29/2017 12:50:39 PM Referred By: Confirmed By:ANTHONY SCOTT MD
--- NOTE | 2017-05-29 14:31 | MSN ---
Progress Note (short form) - Note Progress Note: SUBJECTIVE: Pt seen and examined at bedside. S/p debridement. Pt was NPO since midnight and heparin drip was held. States pain is controlled. States having an episode of diarrhea in the morning. Denies any CP, palpitations, SOB, fever, chills, nausea , vomiting, constipation, or any urinary symptoms. OBJECTIVE Last Vital Signs Temp Pulse Resp BP Pulse Ox 98.4 F 64 18 110/55 98 05/29/17 13:47 05/29/17 13:47 05/29/17 13:47 05/29/17 13:47 05/28/17 20:51 GEN: AOX3, NAD CV: RRR S1 S2 No MRG LUNG: CTA b/l ABD: +bowel sounds, soft, ND, NT MSK: feet wrapped b/l; some bleeding noted on dressing Laboratory Last Values WBC 17.4 K/mm3 (4.0-10.0) H 05/29/17 05:00 RBC 3.03 M/mm3 (4.00-5.60) L 05/29/17 05:00 Hgb 9.4 GM/dL (11.7-16.9) L 05/29/17 05:00 Hct 28.1 % (35.4-49) L 05/29/17 05:00 MCV 92.8 fl (80-96) 05/29/17 05:00 MCH 31.1 pg (25.7-33.7) 05/29/17 05:00 MCHC 33.5 g/dl (32.0-35.9) 05/29/17 05:00 RDW 13.5 % (11.9-15.9) 05/29/17 05:00 Plt Count 249 K/MM3 (134-434) 05/29/17 05:00 MPV 10.7 fl (7.5-11.1) 05/29/17 05:00 Total Counted 100 05/24/17 20:49 Neutrophils % 82.1 % (42.8-82.8) 05/28/17 06:00 Neutrophils % (Manual) 87.0 % (42.8-82.8) H 05/24/17 20:49 Lymphocytes % 10.3 % (8-40) 05/28/17 06:00 Lymphocytes % (Manual) 7.0 % (8-40) L 05/24/17 20:49 Monocytes % 6.2 % (3.8-10.2) 05/28/17 06:00 Monocytes % (Manual) 5 % (3.8-10.2) 05/24/17 20:49 Eosinophils % 1.0 % (0-4.5) D 05/28/17 06:00 Basophils % 0.4 % (0-2.0) 05/28/17 06:00 Differential Comment 05/24/17 20:49 Platelet Estimate Adequate 05/24/17 20:49 Platelet Comment 05/24/17 20:49 ESR 107 mm/hr (0-20) H 05/24/17 20:49 PT with INR 17.50 SEC (9.98-11.88) H 05/28/17 10:45 INR 1.55 (0.82-1.09) H 05/28/17 10:45 PTT (Actin FS) 31.3 SECONDS (26.9-34.4) D 05/29/17 05:00 VBG pH 7.51 (7.32-7.42) H 05/24/17 20:49 POC VBG pCO2 29.0 mmHg (38-52) L 05/24/17 20:49 POC VBG pO2 110.0 mmHg (28-48) H 05/24/17 20:49 Mixed VBG HCO3 22.9 meq/L (19-25) 05/24/17 20:49 Sodium 139 mmol/L (136-145) 05/29/17 05:00 Potassium 3.6 mmol/L (3.5-5.1) 05/29/17 05:00 Chloride 98 mmol/L (98-107) 05/29/17 05:00 Carbon Dioxide 29 mmol/L (21-32) 05/29/17 05:00 Anion Gap 12 (8-16) 05/29/17 05:00 BUN 26 mg/dL (7-18) H D 05/29/17 05:00 Creatinine 5.1 mg/dL (0.7-1.3) H D 05/29/17 05:00 Creat Clearance w eGFR 11.51 (>60) 05/29/17 05:00 POC Glucometer 208.33034 UNITS (80-120) 05/29/17 12:10 Random Glucose 146 mg/dL (74-106) H D 05/29/17 05:00 Hemoglobin A1c % 8.6 % (4.8-6.0) H D 05/25/17 05:10 Lactic Acid 1.7 mmol/L (0.4-2.0) 05/24/17 20:50 Calcium 7.8 mg/dL (8.5-10.1) L 05/29/17 05:00 Phosphorus 6.0 mg/dL (2.5-4.9) H D 05/28/17 06:00 Magnesium 2.0 mg/dL (1.8-2.4) 05/27/17 05:00 Iron 25 ug/dL (38-169) L 05/28/17 06:00 TIBC 121 ug/dL (250-450) L 05/28/17 06:00 Iron Saturation 21 % (15-55) 05/28/17 06:00 Ferritin 986.531 ng/ml (16.4-293.9) H 05/28/17 06:00 Total Bilirubin 0.8 mg/dL (0.2-1.0) 05/29/17 05:00 AST 18 U/L (15-37) D 05/29/17 05:00 ALT 30 U/L (12-78) 05/29/17 05:00 Alkaline Phosphatase 89 U/L (45-117) 05/29/17 05:00 Creatine Kinase 106 IU/L (39-308) 05/24/17 20:49 Troponin I 0.60 ng/ml (0.00-0.05) H 05/25/17 12:00 C-Reactive Protein 25.9 MG/DL (0.00-0.3) H 05/24/17 20:49 Total Protein 5.8 g/dl (6.4-8.2) L 05/29/17 05:00 Albumin 2.1 g/dl (3.4-5.0) L 05/29/17 05:00 Triglycerides 171 mg/dL (35-160) H 05/25/17 05:10 Cholesterol 144 mg/dL (50-200) D 05/25/17 05:10 Total LDL Cholesterol 99 mg/dL (5-100) 05/25/17 05:10 HDL Cholesterol 16 mg/dL (40-60) L D 05/25/17 05:10 TSH 1.39 uIU/ml (0.358-3.74) 05/25/17 05:10 Random Vancomycin 4.577 ug/ml 05/28/17 06:00 Vancomycin Pre-Dose 4.481 ug/ml (5.0-10.0) L* 05/28/17 10:00 Opiates Screen Negative ng/ml (IZIXNN=112) 05/26/17 06:45 Methadone Screen Negative ng/ml (BUIIZH=871) 05/26/17 06:45 Barbiturate Screen Negative ng/ml (YPVNZM=658) 05/26/17 06:45 Phencyclidine Screen Negative ng/ml (CUTOFF=25) 05/26/17 06:45 Ur Amphetamines Screen Negative ng/ml (ZABXQY=517) 05/26/17 06:45 MDMA (Ecstasy) Screen Negative ng/ml (FPKSQD=098) 05/26/17 06:45 Benzodiazepines Screen Negative ng/ml (UOTZWE=541) 05/26/17 06:45 Cocaine Screen Negative ng/ml (DQOPMS=822) 05/26/17 06:45 U Marijuana (THC) Screen Negative ng/ml (CUTOFF=50) 05/26/17 06:45 Hepatitis A Ab Total Negative (Negative) 05/25/17 08:16 Hep Bs Antigen Positive (Negative) H 05/25/17 08:16 Hep Bs Antibody Non reactive (.) 05/25/17 08:16 Hep B Core Total Ab Positive (Negative) H 05/25/17 08:16 Hepatitis C Antibody <0.1 s/co ratio (0.0-0.9) 05/25/17 08:16 HIV 1&2 Ag/Ab, 4th Gen Non reactive (Non Reactive) 05/25/17 05:10 Blood Type O POSITIVE 05/24/17 20:40 Antibody Screen Negative 05/24/17 20:40 Home Medications Medication Instructions Recorded Metoprolol Succinate [Toprol Xl -] 25 mg PO DAILY 12/20/16 Aspirin [ASA -] 81 mg PO DAILY 12/23/16 Tenofovir Disoproxil Fumarate 300 mg PO MOWEFR 05/26/17 [Viread] Piperacillin/Tazob 2.25 gm [Zosyn 2.25 gm IVPB Q8H #126 bag 05/29/17 2.25GM Ivpb (Pre-Docked)] Microbiology 05/29/17 08:15 Foot - Right Gram Stain - Final 05/24/17 20:49 Blood - Peripheral Venous Blood Culture - Preliminary NO GROWTH OBTAINED AFTER 96 HOURS, INCUBATION TO CONTINUE FOR 1 DAYS. 05/24/17 20:40 Blood - Peripheral Venous Blood Culture - Preliminary NO GROWTH OBTAINED AFTER 96 HOURS, INCUBATION TO CONTINUE FOR 1 DAYS. 05/27/17 21:05 Stool Gram Stain - Final 05/27/17 21:05 Stool Clostridium difficile Antigen (OZZIE) - Final 05/27/17 21:05 Stool Clostridium difficile Toxin Assay - Final A/P Pt is a 61 y/o M with PMhx of ESRD (on HD MWF), HTN, HepB, DM type II ( noncompliant with meds), CAD (s/p CABG) presented to the ED with nausea, dizziness, generalized weakness, and R toe infection, found to have osteomyelitis secondary to diabetic foot ulcer. 1. Sepsis secondary to osteomyelitis -sepsis resolved -MRI confirmed b/l osteomyelitis -s/p debridement; per podiatry: no loss of blood; extensive liquefactive abscess from interspace to midfoot; started on heparin drip again; can switch over to NOAC tomorrow -continue vanc/zosyn 2.25 mg Q8H (day 5) -per ID, skilled nursing antibiotic tx of vanc 1 g/zosyn 2.25 mg with PICC line for at least 6 weeks can be done. Pt agreeable to the plan. Refused going to a SNF and would like to do it himself; approved for home infusions -Vanc level check prior to HD tomorrow 2. ESRD -nephrology consulted; continue HD as planned ([facility]) 3. New onset A.fib with RVR of 122 -has been stable with NSR for the past couple of days -rate controlled with lopressor 25 mg -heparin gtt due to CHADSVASC >3; pt explained the future of risk of strokes given the score and is agreeable to oral AC; switch to NOAC tomorrow -echo normal without any clots or valvular issues -cardiology consulted 4. Diarrhea -likely due to antibiotics -pepto-bismol 262 mg only once; banatol flakes PRN 5. Chronic back pain -resolved; likely due to multiple back surgeries and lying in bed -Avoid NSAIDS; heating pads as needed 6. DM -HbA1c 8.6 -ISS; requiring very little coverage -BGMs ACHS 7. HTN -well controlled with lisinopril 2.5 mg QD and metoprolol XL 25 mg BID 8. CAD -s/p CABG and stents -aspirin 81 mg QD -per cardiology, ischemic work-up at later time when stable 9. HepB -tenofovir 300 mg 3x/week 10. HLD -lipitor 10 mg HS 11. FEN -no IVFs -lytes wnl; continue monitoring, replete as necessary -renal diet 12. 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
--- NOTE | 2017-05-29 16:05 | PN ---
Progress Note (short form) - Note Progress Note: Arterial Doppler reviewed: There is evidence for arterial calcification. There is mild flow deficit to both feet, worse on the left. Metatarsal flow curves show adequate flow for wound healing. Problem List - Problems (1) Cellulitis Code(s): L03.90 - CELLULITIS, UNSPECIFIED Qualifiers: Site of cellulitis: extremity Site of cellulitis of extremity: lower extremity Laterality: unspecified laterality Qualified Code(s): L03.119 - Cellulitis of unspecified part of limb
--- NOTE | 2017-05-29 19:05 | PN ---
Progress Note, Physician History of Present Illness: Events noted. Pt is s/p Rt foot extensive debridement and Lt foot ulcer debridement. Noted with extensive abscess intra-op. Afebrile, without distress. - Current Medication List Current Medications: Active Medications Apixaban (Eliquis -) 5 mg PO BID [facility] Aspirin (Asa -) 81 mg PO DAILY [facility] Last Admin: 05/29/17 10:37 Dose: Not Given Atorvastatin Calcium (Lipitor -) 10 mg PO HS [facility] Bismuth Subsalicylate (Pepto-Bismol -) 262 mg PO ONCE ONE Stop: 05/29/17 17:05 Chlorhexidine Gluconate (Hibiclens For Decolonization -) 1 applic TP HS [facility] Epoetin Jerald (Epogen -) 10,000 units IVPUSH ONCE ONE Stop: 05/30/17 06:01 Heparin Sodium (Porcine) (Heparin -) 5,000 unit IVPUSH PRN PRN PRN Reason: Heparin Heparin Sodium (Porcine) (Heparin -) 1,000 unit IVPUSH PRN PRN PRN Reason: Heparin Piperacillin Sod/Tazobactam (Sod 2.25 gm/ Dextrose) 50 mls @ 100 mls/hr IVPB Q8H-IV [facility] Last Admin: 05/29/17 17:52 Dose: 100 mls/hr Vancomycin HCl 1,000 mg/ (Dextrose) 250 mls @ 250 mls/hr IVPB ONCE ONE PRN Reason: Protocol Stop: 05/30/17 06:59 Heparin Sodium (Porcine) 25, (000 unit/ Sodium Chloride) 500 mls @ 20 mls/hr IV TITR [facility]; 1,000 UNIT/HR PRN Reason: Protocol Insulin Aspart (Novolog Vial Sliding Scale -) 1 vial SQ ACHS [facility] PRN Reason: Protocol Last Admin: 05/29/17 17:50 Dose: Not Given Lactobacillus Acidophilus (Bacid -) 1 tab PO DAILY [facility] Last Admin: 05/29/17 10:38 Dose: 1 tab Lisinopril (Prinivil) 2.5 mg PO DAILY [facility] Last Admin: 05/29/17 10:39 Dose: 2.5 mg Metoprolol Tartrate (Lopressor -) 25 mg PO BID [facility] Last Admin: 05/29/17 10:39 Dose: 25 mg Mupirocin (Bactroban Ointment (For Decolonization) -) 1 applic NS BID [facility] Stop: 06/03/17 09:59 Last Admin: 05/29/17 10:38 Dose: 1 applic Oxycodone HCl (Roxicodone -) 5 mg PO Q4H PRN PRN Reason: PAIN LEVEL 1-5 Sodium Hypochlorite (Dakin's Solution 0.25% (Half-Strength) -) 1 applic TP DAILY [facility] Tenofovir Disoproxil Fumarate (Viread -) 300 mg PO Q3D@1200 [facility] Last Admin: 05/29/17 12:58 Dose: 300 mg - Objective Vital Signs: Vital Signs Temperature 98.4 F 05/29/17 14:00 Pulse Rate 64 05/29/17 14:00 Respiratory Rate 18 05/29/17 14:00 Blood Pressure 110/55 05/29/17 14:00 O2 Sat by Pulse Oximetry (%) 99 05/29/17 09:00 Constitutional: Yes: No Distress Cardiovascular: Yes: Regular Rate and Rhythm Respiratory: Yes: Regular Gastrointestinal: Yes: Normal Bowel Sounds, Soft Wound/Incision: Yes: Dressing Dry and Intact Neurological: Yes: Alert Labs: CBC, BMP 05/29/17 05:00 05/29/17 05:00 INR, PTT INR 1.55 (0.82-1.09) H 05/28/17 10:45 - ....Imaging MRI: Report Reviewed Problem List - Problems (1) Atrial fibrillation Code(s): I48.91 - UNSPECIFIED ATRIAL FIBRILLATION Qualifiers: Atrial fibrillation type: unspecified Qualified Code(s): I48.91 - Unspecified atrial fibrillation (2) ESRD (end stage renal disease) on dialysis Code(s): N18.6 - END STAGE RENAL DISEASE; Z99.2 - DEPENDENCE ON RENAL DIALYSIS (3) Cellulitis Code(s): L03.90 - CELLULITIS, UNSPECIFIED Qualifiers: Site of cellulitis: extremity Site of cellulitis of extremity: lower extremity Laterality: unspecified laterality Qualified Code(s): L03.119 - Cellulitis of unspecified part of limb (4) Sepsis Code(s): A41.9 - SEPSIS, UNSPECIFIED ORGANISM Qualifiers: Sepsis type: sepsis due to unspecified organism Qualified Code(s): A41.9 - Sepsis, unspecified organism (5) Coronary arteriosclerosis Code(s): I25.10 - ATHSCL HEART DISEASE OF [place] CORONARY ARTERY W/O ANG PCTRS (6) Diabetes Code(s): E11.9 - TYPE 2 DIABETES MELLITUS WITHOUT COMPLICATIONS (7) Hypertension Code(s): I10 - ESSENTIAL (PRIMARY) HYPERTENSION (8) Osteomyelitis of left foot Code(s): M86.9 - OSTEOMYELITIS, UNSPECIFIED (9) Osteomyelitis of right foot Code(s): M86.9 - OSTEOMYELITIS, UNSPECIFIED Assessment/Plan Pt is s/p extensive debridement of Rt foot and Lt foot ulcer debridement. Wbc trending down, currently afebrile. - cont Zosyn/Vancomycin IV , renally adjusted doses - monitor wbc, vitals - podiatry following - will need long-term antibiotics but amputation is needed, pt refusing - cont rest of care per ICU cc: 40 min
[2017-05-29] MEDS ORDERED: BISMUTH SUBSALICYLATE 262 MG TAB.CHEW PO ONE (19:30)
[2017-05-29] MEDS: SODIUM HYPOCHLORITE 0.25%- 473 ML BULK BOTTLE TP SCH (20:50)
[2017-05-29] MEDS ORDERED: CHLORHEXIDINE GLUCONATE 4% CLEANSER FOR DECOLONIZATION TP SCH (22:00)
[2017-05-29] MEDS ORDERED: ATORVASTATIN CA 10 MG TABLET (FP) PO SCH (22:00)
[2017-05-29] MEDS ORDERED: guaiFENesin 200 MG/10 ML 10 ML UNIT-DOSE CUPS PO ONE (23:12)
[2017-05-30] MEDS ORDERED: PT OWN MED DRAWER 7, Y5N ONE ×3 (01:27→19:31)
[2017-05-30] MEDS: PIPERACILLIN/TAZOB 2.25 GM 2.25 GM in DEXTROSE 5%-WATER - 50 ML IVPB SCH ×2 (01:40→13:01)
[2017-05-30] MEDS ORDERED: VANCOMYCIN 1,000 MG in DEXTROSE 5%-WATER - 250 ML IVPB ONE (06:00)
[2017-05-30] MEDS: INSULIN SLIDING SCALE (NOVOLOG) 1 VIAL SQ SCH ×3 (06:11→18:14)
[2017-05-30 06:15] LABS: MCH 30.7 pg (25.7-33.7); MCHC 33.1 g/dl (32.0-35.9); MEAN CELL VOLUME 92.8 fl (80-96); MEAN PLT VOLUME 10.8 fl (7.5-11.1); PLATELET COUNT 247 K/MM3 (134-434); RDW 13.6 % (11.9-15.9)
[2017-05-30 06:49] LABS: ALBUMIN 1.9 g/dl (3.4-5.0); ANION GAP 10 (8-16); CALCIUM 7.2 mg/dL (8.5-10.1); CO2 28 mmol/L (21-32); CREATININE 6.5 mg/dL (0.7-1.3); GLUCOSE,RANDOM 146 mg/dL (74-106); SGOT/AST 13 U/L (15-37); SGPT/ALT 26 U/L (12-78)
[2017-05-30 06:51] LABS: ALK PHOS 79 U/L (45-117); TOT PROT 5.7 g/dl (6.4-8.2)
[2017-05-30] MEDS ORDERED: HEPARIN - 25,000 UNIT in SODIUM CHLORIDE 495 ML IV SCH (08:00)
--- NOTE | 2017-05-30 08:01 | PN ---
Physical Exam: SUBJECTIVE: Patient seen and examined this AM. No foot pain. No CP, no SOB. Still complains of soft stools, but did not adequately try the Banatrol flakes, encouraged today OBJECTIVE: Vital Signs Period Temp Pulse Resp BP Sys/Palafox Pulse Ox Last 24 Hr 98.1 F-98.8 F 62-66 16-18 107-128/55-68 99-99 GEN: AAOx3, NAD, Lying down comfortably HEENT; PERRLA, EOMi CV: S1, S2, RRR LUNG: Grossly clear to asucultation bilaterally ABD; Soft, NT, ND MSK: No edema. Bilateral foot bandages Active Medications Generic Name Dose Route Start Last Admin Trade Name Freq PRN Reason Stop Dose Admin Apixaban 5 mg 05/30/17 10:00 Eliquis - PO BID [facility] Aspirin 81 mg 05/29/17 10:00 05/29/17 10:37 Asa - PO Not Given DAILY [facility] Atorvastatin Calcium 10 mg 05/29/17 22:00 05/29/17 21:22 Lipitor - PO 10 mg HS [facility] Administration Chlorhexidine Gluconate 1 applic 05/29/17 22:00 05/29/17 21:22 Hibiclens For Decolonization - TP Not Given HS [facility] Epoetin Jerald 10,000 units 05/30/17 06:00 Epogen - IVPUSH 05/30/17 06:01 ONCE ONE Piperacillin Sod/Tazobactam 50 mls @ 100 mls/hr 05/29/17 02:00 05/30/17 01:40 Sod 2.25 gm/ Dextrose IVPB 100 mls/hr Q8H-IV [facility] Administration Vancomycin HCl 1,000 mg/ 250 mls @ 250 mls/hr 05/30/17 06:00 Dextrose IVPB 05/30/17 06:59 ONCE ONE Protocol Insulin Aspart 1 vial 05/29/17 07:00 05/30/17 06:11 Novolog Vial Sliding Scale - SQ Not Given ACHS [facility] Protocol Lactobacillus Acidophilus 1 tab 05/29/17 10:00 05/29/17 10:38 Bacid - PO 1 tab DAILY [facility] Administration Lisinopril 2.5 mg 05/29/17 10:00 05/29/17 10:39 Prinivil PO 2.5 mg DAILY [facility] Administration Metoprolol Tartrate 25 mg 05/29/17 10:00 05/29/17 21:22 Lopressor - PO 25 mg BID [facility] Administration Mupirocin 1 applic 05/29/17 10:00 05/29/17 21:22 Bactroban Ointment (For Decolonization) - NS 06/03/17 09:59 Not Given BID [facility] Oxycodone HCl 5 mg 05/29/17 08:54 Roxicodone - PO Q4H PRN PAIN LEVEL 1-5 Sodium Hypochlorite 1 applic 05/29/17 10:00 05/29/17 20:50 Dakin's Solution 0.25% (Half-Strength) - TP Not Given DAILY [facility] Tenofovir Disoproxil Fumarate 300 mg 05/29/17 12:00 05/29/17 12:58 Viread - PO 300 mg Q3D@1200 [facility] Administration ASSESSMENT/PLAN: 61yo M with PMHx of ESRD on HD (MWF), CAD, HTN, Hep B (on entecavir), IDDM who is generally noncompliant with meds and intermittently with HD sessions. He was admitted with CHF, new onset Afib w/ RVR, and sepsis likely secondary to diabetic foot ulcer # Sepsis likely 2/2 Osteomyelitis - Sepsis resolving. MRI+ Osteo on toes bilaterally. Patient refused amputation. S/p bilateral debridement on 05/29. ABIs done, no vascular intervention necessary per vascular team. Will need at least 6 weeks of antibiotics (Vanc w/ dialysis and Zosyn TID). Infusion clinic setup. Pt willing to do this at home, adamantly denies SNF placement. Will get PT to walk patient today. # New onset Afib w/ RVR - has been in normal sinus rhythm since admission, but since [facility], and patient is NOAC candidate, will start NOAC today, Eliquis 5 BID. # ESRD - MWF, next session today # Soft Stool - Likely from antibiotics, doesn't help with peptobismol, banatol flakes TID # Chronic Back Pain - Given heat packs if needs relief. Avoid NSAIDS and narcotics. # Elevated Troponins - Demand ischemia from sepsis/rapid Afib + poor clearance from ESRD; unlikely ACS # IDDM - Hgb A1C 8.8, non compliant, BGMs ACHS + ISS # HTN - continue Lisinopril 2.5mg daily and Lopressor 25 BID now # Hepatitis B - will continue home Tenofovir # Hx of HLD - continue Atorvastatin 10mg HS # Hx of CAD - continue home ASA 81 # FEN - No fluids, elec wnl, renal diet # PPx - Heparin gtt, no GI, PT ordered # Dispo - MRI+ osteo. Needs 6 weeks of IV antibiotics at home as stated above. Likely d/c today w/ PICC line. Await PT to d/w Dr Barrett Cartwright MD - PGY1 Internal Medicine
--- NOTE | 2017-05-30 08:48 | PN ---
Progress Note (short form) - Note Progress Note: Podiatry F/u: Seen/evaluated at [facility]. Denies F/V/N/C/SOB/CP. S/p R foot extensive debridement, L foot debridement of ulcer. Afebrile, VSS. SITA: R foot: large post-surgical ulcer dorsal lateral midfoot with fibrotic tissue, exposed tendon and capsule, no purulence, no fluctuance, periwound erythema improving, no soft tissue crepitus. Ischemic 3rd digit, gangrenous 4th digit. WBC: 16.0 OR Cx: pending Imp: 61 year old IDDM M s/p R foot incision and drainage of asbcess, radical debridement; L foot debridement of ulcer 1. C/w IV abx 2. Dakin's + DSD bilateral foot 3. Partial WB B/L Feet with surgical shoe 4. Patient still refusing toe amputation, does not even want to talk about it at this juncture 5. Home nursing services for wound vac, 125 mmHg continuous, medium black granufoam, 3x/week 6. PICC line 7. Needs close f/u in wound healing center. Prognosis guarded. Rosaura Sheth DPM
[2017-05-30] MEDS ORDERED: PICC LINE 8 ML FLUSH PROTOCOL IVPUSH PRN (08:56)
[2017-05-30] MEDS ORDERED: LOPERAMIDE HCL 1 MG/5 ML UNIT DOSE CUP PO ONE (09:05)
[2017-05-30] MEDS ORDERED: APIXABAN 5 MG TABLET PO SCH (10:00)
--- NOTE | 2017-05-30 10:20 | PN ---
Progress Note, Physician Chief Complaint: The patient seen in the ICU. Seems comfortable. The right foot bandage in place. Very little pain reported. History of Present Illness: 61 yom with ESRD on HD, CAD, HTN, Hepatitis B (on entecavir but no recent follow UP), IDDM non compliant, admitted with CHF in the setting of missing HD, Afib with RVR, and sepsis diabetic foot with superimposed cellulitis/likely osteomyelitis. The patient had debridement of the foot gangrene. The toes are still gangrenous. - Current Medication List Current Medications: Active Medications Apixaban (Eliquis -) 5 mg PO BID [facility] Aspirin (Asa -) 81 mg PO DAILY [facility] Last Admin: 05/29/17 10:37 Dose: Not Given Atorvastatin Calcium (Lipitor -) 10 mg PO HS [facility] Last Admin: 05/29/17 21:22 Dose: 10 mg Chlorhexidine Gluconate (Hibiclens For Decolonization -) 1 applic TP [facility] Last Admin: 05/29/17 21:22 Dose: Not Given Epoetin Jerald (Epogen -) 10,000 units IVPUSH ONCE ONE Stop: 05/30/17 06:01 IV Flush (Picc Line Flush) 8 ml IVPUSH PRN PRN PRN Reason: Protocol Piperacillin Sod/Tazobactam (Sod 2.25 gm/ Dextrose) 50 mls @ 100 mls/hr IVPB Q8H-IV [facility] Last Admin: 05/30/17 01:40 Dose: 100 mls/hr Vancomycin HCl 1,500 mg/ (Dextrose) 500 mls @ 250 mls/hr IVPB ONCE ONE PRN Reason: Protocol Stop: 05/30/17 11:32 Insulin Aspart (Novolog Vial Sliding Scale -) 1 vial SQ ACHS [facility] PRN Reason: Protocol Last Admin: 05/30/17 06:11 Dose: Not Given Lactobacillus Acidophilus (Bacid -) 1 tab PO DAILY [facility] Last Admin: 05/29/17 10:38 Dose: 1 tab Lisinopril (Prinivil) 2.5 mg PO DAILY [facility] Last Admin: 05/29/17 10:39 Dose: 2.5 mg Loperamide HCl (Imodium Liquid -) 1 mg PO ONCE ONE Stop: 05/30/17 09:06 Metoprolol Tartrate (Lopressor -) 25 mg PO BID [facility] Last Admin: 05/29/17 21:22 Dose: 25 mg Mupirocin (Bactroban Ointment (For Decolonization) -) 1 applic NS BID [facility] Stop: 06/03/17 09:59 Last Admin: 05/29/17 21:22 Dose: Not Given Oxycodone HCl (Roxicodone -) 5 mg PO Q4H PRN PRN Reason: PAIN LEVEL 1-5 Sodium Hypochlorite (Dakin's Solution 0.25% (Half-Strength) -) 1 applic TP DAILY [facility] Last Admin: 05/29/17 20:50 Dose: Not Given Tenofovir Disoproxil Fumarate (Viread -) 300 mg PO Q3D@1200 [facility] Last Admin: 05/29/17 12:58 Dose: 300 mg - Objective Vital Signs: Vital Signs Temperature 98.6 F 05/30/17 05:16 Pulse Rate 64 05/30/17 05:16 Respiratory Rate 18 05/30/17 05:16 Blood Pressure 110/60 05/30/17 05:16 O2 Sat by Pulse Oximetry (%) 99 05/29/17 20:09 Constitutional: Yes: Anxious HENT: Yes: Normocephalic Neck: Yes: Supple Respiratory: Yes: CTA Bilaterally, Diminished Gastrointestinal: Yes: Normal Bowel Sounds Extremities: Yes: Cool, Other (toe gangrene Rt.) Neurological: Yes: Alert Labs: CBC, BMP 05/30/17 05:00 05/30/17 05:00 INR, PTT INR 1.55 (0.82-1.09) H 05/28/17 10:45 Problem List - Problems (1) Atrial fibrillation Code(s): I48.91 - UNSPECIFIED ATRIAL FIBRILLATION Qualifiers: Atrial fibrillation type: unspecified Qualified Code(s): I48.91 - Unspecified atrial fibrillation (2) Cellulitis Code(s): L03.90 - CELLULITIS, UNSPECIFIED Qualifiers: Site of cellulitis: extremity Site of cellulitis of extremity: lower extremity Laterality: unspecified laterality Qualified Code(s): L03.119 - Cellulitis of unspecified part of limb (3) ESRD (end stage renal disease) on dialysis Code(s): N18.6 - END STAGE RENAL DISEASE; Z99.2 - DEPENDENCE ON RENAL DIALYSIS (4) Sepsis Code(s): A41.9 - SEPSIS, UNSPECIFIED ORGANISM Qualifiers: Sepsis type: sepsis due to unspecified organism Qualified Code(s): A41.9 - Sepsis, unspecified organism (5) Coronary arteriosclerosis Code(s): I25.10 - ATHSCL HEART DISEASE OF [place] CORONARY ARTERY W/O ANG PCTRS (6) Diabetes Code(s): E11.9 - TYPE 2 DIABETES MELLITUS WITHOUT COMPLICATIONS Assessment/Plan 61yo M with PMHx of ESRD on HD (MWF), CAD, HTN, Hep B (on entecavir), IDDM who is generally noncompliant with meds and intermittently with HD sessions. He was admitted with CHF, new onset Afib w/ RVR, and sepsis likely secondary to diabetic foot ulcer The patient refused amputation of the toes. On antibiotices. New onset Afib w/ RVR - has been in normal sinus rhythm since admission. ESRD - The patient will receive HD today. Orders written and reviewed with the RN. Once discharged he will continue to receive the IV Abx. It is highly likely that the patient will be readmitted in worse shape if he is discharged without the gangrenous toes. I discussed it with the patient. Yokasta Savage MD
[2017-05-30] MEDS ORDERED: VANCOMYCIN 1,500 MG in DEXTROSE 5%-WATER - 500 ML IVPB ONE (10:30)
--- NOTE | 2017-05-30 12:23 | PN ---
Teaching Attending Note Name of Resident: Pankaj Cartwright ATTENDING PHYSICIAN STATEMENT I saw and evaluated the patient. I reviewed the resident's note and discussed the case with the resident. I agree with the resident's findings and plan as documented. SUBJECTIVE:states pain is controlled. denies Cp, SOB, fever, chills, N/V/C/D OBJECTIVE: Last Vital Signs Temp Pulse Resp BP Pulse Ox 98.6 F 64 18 110/60 99 05/30/17 05:16 05/30/17 05:16 05/30/17 05:16 05/30/17 05:16 05/29/17 20:09 General NAD Extremiites B/L feet wrapped. mild bleeding noted on bandage. refused removal of bandages ASSESSMENT AND PLAN: 61yo M with PMH ESRD, HBV on treatment, DM, CHF presented to the ER with complaints of R foot infection that was worsening 1. Sepsis due to Diabetic foot ulcer with underlying OM of the foot-OM confirmed on MRI. pt is adamantly refusing amputation. s/p debridement of B/L feet 05/19. plan for tunneled catheter for half-way abx. Zosyn day 7 of 6 weeks and vanco with HD. will increase vanco dose to 1500mg as level is subtherapeutic. wound vac to be set up as outpatinet. will need close monitoring. poor prognosis but pt is refusing amputation. verbalized understanding of the risks of waiting. podiatry, vascular, and ID on board. echo negative for endocarditis 2. New onset afib- with RVR. self converted to NSR. started on eliquis this AM. on metoprolol. cardio on board. 3. Tropinemia- flat trend 0.87. should have ischemic workup at later time. on asa 4. ESRD on HD- cont HD per normal schedule. HD today. vanco with HD. fluid restriction 5. DM- A1c 8.6. controlled. cont iss. not requiring much coverage. 6. Normocytic anemia-anemia of chronic disease. no signs of bleeding. no indication for txn. 7. HBV- on tenofovir 8. DVT ppx- hep ggt 9. pt refusing ELIZABETH. will d/c home with VNS and wound care
[2017-05-30] MEDS: BANATROL PLUS POWDER PACKET PO SCH ×2 (13:00→18:13)
[2017-05-30] MEDS: LACTOBACILLUS ACIDOPHILUS 1 EACH TAB (FP) PO SCH (13:03)
[2017-05-30] MEDS: ASPIRIN 81 MG CHEWABLE TABLETS PO SCH (13:04)
[2017-05-30] MEDS: SODIUM HYPOCHLORITE 0.25%- 473 ML BULK BOTTLE TP SCH (13:05)
[2017-05-30] MEDS ORDERED: HEMOQUE TEST 1 EACH EACH ONE (13:13)
--- NOTE | 2017-05-30 13:18 | PN ---
Progress Note, Physician History of Present Illness: Pt remains hemodynamically stable, afebrile. No new specific complaints. - Current Medication List Current Medications: Active Medications Apixaban (Eliquis -) 5 mg PO BID [facility] Aspirin (Asa -) 81 mg PO DAILY [facility] Last Admin: 05/29/17 10:37 Dose: Not Given Atorvastatin Calcium (Lipitor -) 10 mg PO HS [facility] Last Admin: 05/29/17 21:22 Dose: 10 mg Chlorhexidine Gluconate (Hibiclens For Decolonization -) 1 applic TP HS [facility] Last Admin: 05/29/17 21:22 Dose: Not Given Epoetin Jerald (Epogen -) 10,000 units IVPUSH ONCE ONE Stop: 05/30/17 06:01 IV Flush (Picc Line Flush) 8 ml IVPUSH PRN PRN PRN Reason: Protocol Piperacillin Sod/Tazobactam (Sod 2.25 gm/ Dextrose) 50 mls @ 100 mls/hr IVPB Q8H-IV [facility] Last Admin: 05/30/17 01:40 Dose: 100 mls/hr Insulin Aspart (Novolog Vial Sliding Scale -) 1 vial SQ ACHS [facility] PRN Reason: Protocol Last Admin: 05/30/17 06:11 Dose: Not Given Lactobacillus Acidophilus (Bacid -) 1 tab PO DAILY [facility] Last Admin: 05/29/17 10:38 Dose: 1 tab Lisinopril (Prinivil) 2.5 mg PO DAILY [facility] Last Admin: 05/29/17 10:39 Dose: 2.5 mg Metoprolol Tartrate (Lopressor -) 25 mg PO BID [facility] Last Admin: 05/29/17 21:22 Dose: 25 mg Mupirocin (Bactroban Ointment (For Decolonization) -) 1 applic NS BID [facility] Stop: 06/03/17 09:59 Last Admin: 05/29/17 21:22 Dose: Not Given Oxycodone HCl (Roxicodone -) 5 mg PO Q4H PRN PRN Reason: PAIN LEVEL 1-5 Sodium Hypochlorite (Dakin's Solution 0.25% (Half-Strength) -) 1 applic TP DAILY [facility] Last Admin: 05/29/17 20:50 Dose: Not Given Tenofovir Disoproxil Fumarate (Viread -) 300 mg PO Q3D@1200 [facility] Last Admin: 05/29/17 12:58 Dose: 300 mg - Objective Vital Signs: Vital Signs Temperature 98.6 F 05/30/17 05:16 Pulse Rate 64 05/30/17 05:16 Respiratory Rate 18 05/30/17 05:16 Blood Pressure 110/60 05/30/17 05:16 O2 Sat by Pulse Oximetry (%) 99 05/29/17 20:09 Constitutional: Yes: No Distress, Calm Neck: Yes: Supple Cardiovascular: Yes: Regular Rate and Rhythm Respiratory: Yes: Regular Gastrointestinal: Yes: Normal Bowel Sounds, Soft Extremities: Yes: Cyanosis, Other (Rt foot with cyanosis/dusky discoloration of 3-5th toes, dorsal foot wound s/p debridement of necrotic tissue, Lt foot ulcer dressing intact) Wound/Incision: Yes: Dressing Dry and Intact Neurological: Yes: Alert, Oriented Psychiatric: Yes: Alert Labs: CBC, BMP 05/30/17 05:00 05/30/17 05:00 INR, PTT INR 1.55 (0.82-1.09) H 05/28/17 10:45 Problem List - Problems (1) Atrial fibrillation Code(s): I48.91 - UNSPECIFIED ATRIAL FIBRILLATION Qualifiers: Atrial fibrillation type: unspecified Qualified Code(s): I48.91 - Unspecified atrial fibrillation (2) ESRD (end stage renal disease) on dialysis Code(s): N18.6 - END STAGE RENAL DISEASE; Z99.2 - DEPENDENCE ON RENAL DIALYSIS (3) Cellulitis Code(s): L03.90 - CELLULITIS, UNSPECIFIED Qualifiers: Site of cellulitis: extremity Site of cellulitis of extremity: lower extremity Laterality: unspecified laterality Qualified Code(s): L03.119 - Cellulitis of unspecified part of limb (4) Sepsis Code(s): A41.9 - SEPSIS, UNSPECIFIED ORGANISM Qualifiers: Sepsis type: sepsis due to unspecified organism Qualified Code(s): A41.9 - Sepsis, unspecified organism (5) Coronary arteriosclerosis Code(s): I25.10 - ATHSCL HEART DISEASE OF [place] CORONARY ARTERY W/O ANG PCTRS (6) Diabetes Code(s): E11.9 - TYPE 2 DIABETES MELLITUS WITHOUT COMPLICATIONS (7) Hypertension Code(s): I10 - ESSENTIAL (PRIMARY) HYPERTENSION (8) Osteomyelitis of left foot Code(s): M86.9 - OSTEOMYELITIS, UNSPECIFIED (9) Osteomyelitis of right foot Code(s): M86.9 - OSTEOMYELITIS, UNSPECIFIED Assessment/Plan 61 y.o. male with IDDM, ESRD on HD, PVD admitted with severe sepsis Rt foot necrosis/cyanotic toes, abscess/OM s/p debridement Lt foot infected ulcer/OM s/p debridement Hepatitis B on Entecavir -- pt adamantly refusing amputation, understands poor prognosis for healing and possibility of persistent infection/sepsis, even -- wbc trending down, afebrile, appears hemodynamically stable -- continue current antibiotics, doses adjusted x at least total of 6 weeks -- for d/c today, please repeat labs including Vancomycin trough level prior to next HD -- continue wound care f/u , Podiatry -- f/u with PMD cc time: 40 min
--- NOTE | 2017-05-30 14:00 | MSN ---
Progress Note (short form) - Note Progress Note: SUBJECTIVE: Pt seen and examined at bedside. S/p debridement. States pain is controlled. States having an episode of diarrhea in the morning. Denies any CP, palpitations , SOB, fever, chills, nausea, vomiting, constipation, or any urinary symptoms. OBJECTIVE Last Vital Signs Temp Pulse Resp BP Pulse Ox 98.6 F 64 18 110/60 99 05/30/17 05:16 05/30/17 05:16 05/30/17 05:16 05/30/17 05:16 05/29/17 20:09 GEN: AOX3, NAD CV: RRR S1 S2 No MRG LUNG: CTA b/l ABD: +bowel sounds, soft, ND, NT MSK: feet wrapped b/l Laboratory Last Values WBC 16.0 K/mm3 (4.0-10.0) H 05/30/17 05:00 RBC 3.21 M/mm3 (4.00-5.60) L 05/30/17 05:00 Hgb 9.9 GM/dL (11.7-16.9) L 05/30/17 05:00 Hct 29.8 % (35.4-49) L 05/30/17 05:00 MCV 92.8 fl (80-96) 05/30/17 05:00 MCH 30.7 pg (25.7-33.7) 05/30/17 05:00 MCHC 33.1 g/dl (32.0-35.9) 05/30/17 05:00 RDW 13.6 % (11.9-15.9) 05/30/17 05:00 Plt Count 247 K/MM3 (134-434) 05/30/17 05:00 MPV 10.8 fl (7.5-11.1) 05/30/17 05:00 Total Counted 100 05/24/17 20:49 Neutrophils % 82.1 % (42.8-82.8) 05/28/17 06:00 Neutrophils % (Manual) 87.0 % (42.8-82.8) H 05/24/17 20:49 Lymphocytes % 10.3 % (8-40) 05/28/17 06:00 Lymphocytes % (Manual) 7.0 % (8-40) L 05/24/17 20:49 Monocytes % 6.2 % (3.8-10.2) 05/28/17 06:00 Monocytes % (Manual) 5 % (3.8-10.2) 05/24/17 20:49 Eosinophils % 1.0 % (0-4.5) D 05/28/17 06:00 Basophils % 0.4 % (0-2.0) 05/28/17 06:00 Differential Comment 05/24/17 20:49 Platelet Estimate Adequate 05/24/17 20:49 Platelet Comment 05/24/17 20:49 ESR 107 mm/hr (0-20) H 05/24/17 20:49 PT with INR 17.50 SEC (9.98-11.88) H 05/28/17 10:45 INR 1.55 (0.82-1.09) H 05/28/17 10:45 PTT (Actin FS) 29.7 SECONDS (26.9-34.4) 05/30/17 05:00 VBG pH 7.51 (7.32-7.42) H 05/24/17 20:49 POC VBG pCO2 29.0 mmHg (38-52) L 05/24/17 20:49 POC VBG pO2 110.0 mmHg (28-48) H 05/24/17 20:49 Mixed VBG HCO3 22.9 meq/L (19-25) 05/24/17 20:49 Sodium 135 mmol/L (136-145) L 05/30/17 05:00 Potassium 3.7 mmol/L (3.5-5.1) 05/30/17 05:00 Chloride 97 mmol/L (98-107) L 05/30/17 05:00 Carbon Dioxide 28 mmol/L (21-32) 05/30/17 05:00 Anion Gap 10 (8-16) 05/30/17 05:00 BUN 31 mg/dL (7-18) H 05/30/17 05:00 Creatinine 6.5 mg/dL (0.7-1.3) H D 05/30/17 05:00 Creat Clearance w eGFR 8.70 (>60) 05/30/17 05:00 POC Glucometer 179.21594 UNITS (80-120) 05/30/17 05:07 Random Glucose 146 mg/dL (74-106) H 05/30/17 05:00 Hemoglobin A1c % 8.6 % (4.8-6.0) H D 05/25/17 05:10 Lactic Acid 1.7 mmol/L (0.4-2.0) 05/24/17 20:50 Calcium 7.2 mg/dL (8.5-10.1) L 05/30/17 05:00 Phosphorus 6.0 mg/dL (2.5-4.9) H D 05/28/17 06:00 Magnesium 2.0 mg/dL (1.8-2.4) 05/27/17 05:00 Iron 25 ug/dL (38-169) L 05/28/17 06:00 TIBC 121 ug/dL (250-450) L 05/28/17 06:00 Iron Saturation 21 % (15-55) 05/28/17 06:00 Ferritin 986.531 ng/ml (16.4-293.9) H 05/28/17 06:00 Total Bilirubin 1.0 mg/dL (0.2-1.0) D 05/30/17 05:00 AST 13 U/L (15-37) L D 05/30/17 05:00 ALT 26 U/L (12-78) 05/30/17 05:00 Alkaline Phosphatase 79 U/L (45-117) 05/30/17 05:00 Creatine Kinase 106 IU/L (39-308) 05/24/17 20:49 Troponin I 0.60 ng/ml (0.00-0.05) H 05/25/17 12:00 C-Reactive Protein 25.9 MG/DL (0.00-0.3) H 05/24/17 20:49 Total Protein 5.7 g/dl (6.4-8.2) L 05/30/17 05:00 Albumin 1.9 g/dl (3.4-5.0) L 05/30/17 05:00 Triglycerides 171 mg/dL (35-160) H 05/25/17 05:10 Cholesterol 144 mg/dL (50-200) D 05/25/17 05:10 Total LDL Cholesterol 99 mg/dL (5-100) 05/25/17 05:10 HDL Cholesterol 16 mg/dL (40-60) L D 05/25/17 05:10 TSH 1.39 uIU/ml (0.358-3.74) 05/25/17 05:10 Random Vancomycin 4.577 ug/ml 05/28/17 06:00 Vancomycin Pre-Dose 8.293 ug/ml (5.0-10.0) D 05/30/17 05:00 Opiates Screen Negative ng/ml (PSZGSA=454) 05/26/17 06:45 Methadone Screen Negative ng/ml (CXUAKB=078) 05/26/17 06:45 Barbiturate Screen Negative ng/ml (WNMBEX=973) 05/26/17 06:45 Phencyclidine Screen Negative ng/ml (CUTOFF=25) 05/26/17 06:45 Ur Amphetamines Screen Negative ng/ml (JSHNGG=421) 05/26/17 06:45 MDMA (Ecstasy) Screen Negative ng/ml (QWPAVA=935) 05/26/17 06:45 Benzodiazepines Screen Negative ng/ml (VBDOUD=439) 05/26/17 06:45 Cocaine Screen Negative ng/ml (LHQALA=248) 05/26/17 06:45 U Marijuana (THC) Screen Negative ng/ml (CUTOFF=50) 05/26/17 06:45 Hepatitis A Ab Total Negative (Negative) 05/25/17 08:16 Hep Bs Antigen Positive (Negative) H 05/25/17 08:16 Hep Bs Antibody Non reactive (.) 05/25/17 08:16 Hep B Core Total Ab Positive (Negative) H 05/25/17 08:16 Hepatitis C Antibody <0.1 s/co ratio (0.0-0.9) 05/25/17 08:16 HIV 1&2 Ag/Ab, 4th Gen Non reactive (Non Reactive) 05/25/17 05:10 Blood Type O POSITIVE 05/24/17 20:40 Antibody Screen Negative 05/24/17 20:40 Home Medications Medication Instructions Recorded Metoprolol Succinate [Toprol XL -] 25 mg PO DAILY 12/20/16 Aspirin [ASA -] 81 mg PO DAILY 12/23/16 Tenofovir Disoproxil Fumarate 300 mg PO MOWEFR 05/26/17 [Viread -] Piperacillin/Tazob 2.25 gm [Zosyn 2.25 gm IVPB Q8H #126 bag 05/29/17 2.25GM Ivpb (Pre-Docked)] Apixaban [Eliquis -] 5 mg PO BID #30 tablet 05/30/17 Atorvastatin Ca [Lipitor] 10 mg PO HS #30 tablet 05/30/17 Lactobacillus Acidophilus [Bacid -] 1 tab PO DAILY #30 tab 05/30/17 Lisinopril [Prinivil] 2.5 mg PO DAILY #30 tablet 05/30/17 Vancomycin 1 Gram (Pre-Docked) 1,000 mg IVPB MOWEFR #16 bag 05/30/17 [Vancomycin (Pre-Docked)] Microbiology 05/29/17 08:15 Foot - Right Gram Stain - Final 05/29/17 08:15 Foot - Right Wound Culture - Preliminary Presumptive Mssa (Pbp2a Neg) 05/24/17 20:49 Blood - Peripheral Venous Blood Culture - Final NO GROWTH AFTER 5 DAYS INCUBATION 05/24/17 20:40 Blood - Peripheral Venous Blood Culture - Final NO GROWTH AFTER 5 DAYS INCUBATION 05/27/17 21:05 Stool Gram Stain - Final 05/27/17 21:05 Stool Clostridium difficile Antigen (OZZIE) - Final 05/27/17 21:05 Stool Clostridium difficile Toxin Assay - Final A/P Pt is a 61 y/o M with PMhx of ESRD (on HD MWF), HTN, HepB, DM type II ( noncompliant with meds), CAD (s/p CABG) presented to the ED with nausea, dizziness, generalized weakness, and R toe infection, found to have osteomyelitis secondary to diabetic foot ulcer. 1. Sepsis secondary to osteomyelitis -sepsis resolved -MRI confirmed b/l osteomyelitis; s/p debridement on 05/29 -tunneled catheter in place for long term care administrator antibiotic tx of vanc 1 g/zosyn 2.25 mg for at least 6 weeks; refused going to a SNF and would like to do it himself -pt still refusing amputation and fully understands the risks; will be d/c with home nursing services for wound vac; will be partial weight bearing in both legs with surgical shoes; prognosis is poor but will continue to f/u with Dr. Victor in the clinic -continue vanc/zosyn 2.25 mg Q8H (day 6); vanc dose increased to 1.5 gm due to subtherapeutic levels 2. ESRD -continue HD as planned (MWF) 3. New onset A.fib with RVR of 122 -has been stable with NSR for the past couple of days -rate controlled with lopressor 25 mg -started on eliquis 5 mg BID today -echo normal without any clots or valvular issues 4. Diarrhea -likely due to antibiotics -given imodium; banatol flakes PRN 5. Chronic back pain -resolved; likely due to multiple back surgeries and lying in bed -Avoid NSAIDS; heating pads as needed 6. DM -HbA1c 8.6 -ISS; requiring very little coverage -BGMs ACHS 7. HTN -well controlled with lisinopril 2.5 mg QD and metoprolol XL 25 mg BID 8. CAD -s/p CABG and stents -aspirin 81 mg QD -per cardiology, ischemic work-up at later time when stable 9. HepB -tenofovir 300 mg 3x/week 10. HLD -lipitor 10 mg HS 11. FEN -no IVFs -lytes wnl; continue monitoring, replete as necessary -renal diet 12. PPx -DVT: heparin gtt -No GI ppx Dispo: S/p debridement; refused amputation so will need long term care administrator antibiotics ( vanc/zosyn); PICC line in place; approved for home infusions and home nursing services for wound care; can be D/C today Kaila Hanson, MS3
[2017-05-30] MEDS ORDERED: EPOETIN ALFA 10,000 UNIT/1 ML VIAL IVPUSH ONE (14:45)
[2017-05-30] MEDS: LISINOPRIL 5 MG TABLET (FP) PO SCH (15:51)
[2017-05-30] MEDS: METOPROLOL TARTRATE 25 MG TABLET (FP) PO SCH (15:51)
--- NOTE | 2017-05-30 16:09 | PN ---
Progress Note, Physician Chief Complaint: Pt A&Ox3; denies chest pain, dyspne; History of Present Illness: The patient is a 61 yr old white man with past medical history of hypertension, IDDM (non-compliant) and ESRD (on dialysis MWF) who presents to the ED with complaints of nausea and dizziness for the past three days. The patient states that his symptoms began when he last went to dialysis on Friday and subsequently has been feeling weak and lightheaded as well. He also notes that he has had intermittent diarrhea for the past two weeks which he describes as watery stools. Additionally, the patient began to noticed an infected blister on his right toe which appears infected and cyanotic. In the ED, the patient was also noted to be hypotensive. The patient had recently traveled to [place] ; this resulted in disrupting his hemodialysis schedule for a week. He denies any fevers or chills. He denies any shortness of breath or chest pain. He denies any urinary symptoms. Unit Clerk: Dr. Yokasta Monae - Current Medication List Current Medications: Active Medications Apixaban (Eliquis -) 5 mg PO BID [facility] Aspirin (Asa -) 81 mg PO DAILY [facility] Last Admin: 05/30/17 13:04 Dose: 81 mg Atorvastatin Calcium (Lipitor -) 10 mg PO HS [facility] Last Admin: 05/29/17 21:22 Dose: 10 mg Chlorhexidine Gluconate (Hibiclens For Decolonization -) 1 applic TP HS [facility] Last Admin: 05/29/17 21:22 Dose: Not Given IV Flush (Picc Line Flush) 8 ml IVPUSH PRN PRN PRN Reason: Protocol Piperacillin Sod/Tazobactam (Sod 2.25 gm/ Dextrose) 50 mls @ 100 mls/hr IVPB Q8H-IV [facility] Last Admin: 05/30/17 13:01 Dose: 100 mls/hr Insulin Aspart (Novolog Vial Sliding Scale -) 1 vial SQ ACHS [facility] PRN Reason: Protocol Last Admin: 05/30/17 13:17 Dose: Not Given Lactobacillus Acidophilus (Bacid -) 1 tab PO DAILY [facility] Last Admin: 05/30/17 13:03 Dose: 1 tab Lisinopril (Prinivil) 2.5 mg PO DAILY [facility] Last Admin: 05/30/17 15:51 Dose: Not Given Metoprolol Tartrate (Lopressor -) 25 mg PO BID [facility] Last Admin: 05/30/17 15:51 Dose: Not Given Mupirocin (Bactroban Ointment (For Decolonization) -) 1 applic NS BID [facility] Stop: 06/03/17 09:59 Last Admin: 05/29/17 21:22 Dose: Not Given Oxycodone HCl (Roxicodone -) 5 mg PO Q4H PRN PRN Reason: PAIN LEVEL 1-5 Last Admin: 05/30/17 13:04 Dose: 5 mg Sodium Hypochlorite (Dakin's Solution 0.25% (Half-Strength) -) 1 applic TP DAILY [facility] Last Admin: 05/30/17 13:05 Dose: 1 appful Tenofovir Disoproxil Fumarate (Viread -) 300 mg PO Q3D@1200 [facility] Last Admin: 05/29/17 12:58 Dose: 300 mg - Objective Vital Signs: Vital Signs Temperature 98.1 F 05/30/17 10:00 Pulse Rate 67 05/30/17 10:00 Respiratory Rate 17 05/30/17 10:00 Blood Pressure 129/78 05/30/17 10:00 O2 Sat by Pulse Oximetry (%) 99 05/30/17 09:00 Labs: CBC, BMP 05/30/17 05:00 05/30/17 05:00 INR, PTT INR 1.55 (0.82-1.09) H 05/28/17 10:45 Problem List - Problems (1) Atrial fibrillation Code(s): I48.91 - UNSPECIFIED ATRIAL FIBRILLATION Qualifiers: Atrial fibrillation type: unspecified Qualified Code(s): I48.91 - Unspecified atrial fibrillation (2) Cellulitis Code(s): L03.90 - CELLULITIS, UNSPECIFIED Qualifiers: Site of cellulitis: extremity Site of cellulitis of extremity: lower extremity Laterality: unspecified laterality Qualified Code(s): L03.119 - Cellulitis of unspecified part of limb (3) ESRD (end stage renal disease) on dialysis Code(s): N18.6 - END STAGE RENAL DISEASE; Z99.2 - DEPENDENCE ON RENAL DIALYSIS (4) Sepsis Code(s): A41.9 - SEPSIS, UNSPECIFIED ORGANISM Qualifiers: Sepsis type: sepsis due to unspecified organism Qualified Code(s): A41.9 - Sepsis, unspecified organism (5) Diabetes Code(s): E11.9 - TYPE 2 DIABETES MELLITUS WITHOUT COMPLICATIONS (6) Hypertension Code(s): I10 - ESSENTIAL (PRIMARY) HYPERTENSION (7) Vertigo Code(s): R42 - DIZZINESS AND GIDDINESS (8) [place] cardiac risk >20% in next 10 years Code(s): Z91.89 - OTH PERSONAL RISK FACTORS, NOT ELSEWHERE CLASSIFIED (9) Peripheral arterial disease Code(s): I73.9 - PERIPHERAL VASCULAR DISEASE, UNSPECIFIED
[2017-05-30 16:13] VITALS: TEMP 98.4
--- NOTE | 2017-05-30 16:27 | DS ---
Physical Exam: SUBJECTIVE: Patient seen and examined. Doing well post-op. Endorses diarrhea. Given immodium. Feels better. OBJECTIVE: Vital Signs Period Temp Pulse Resp BP Sys/Palafox Pulse Ox Last 24 Hr 98.1 F-98.8 F 63-69 16-18 107-129/58-103 99-99 PHYSICAL EXAM GEN: AAOx3, NAD, Lying down comfortably HEENT; PERRLA, EOMi CV: S1, S2, RRR LUNG: Grossly clear to asucultation bilaterally ABD; Soft, NT, ND MSK: No edema. Bilateral foot bandages LABS Laboratory Last Values WBC 16.0 K/mm3 (4.0-10.0) H 05/30/17 05:00 RBC 3.21 M/mm3 (4.00-5.60) L 05/30/17 05:00 Hgb 9.9 GM/dL (11.7-16.9) L 05/30/17 05:00 Hct 29.8 % (35.4-49) L 05/30/17 05:00 MCV 92.8 fl (80-96) 05/30/17 05:00 MCH 30.7 pg (25.7-33.7) 05/30/17 05:00 MCHC 33.1 g/dl (32.0-35.9) 05/30/17 05:00 RDW 13.6 % (11.9-15.9) 05/30/17 05:00 Plt Count 247 K/MM3 (134-434) 05/30/17 05:00 MPV 10.8 fl (7.5-11.1) 05/30/17 05:00 Total Counted 100 05/24/17 20:49 Neutrophils % 82.1 % (42.8-82.8) 05/28/17 06:00 Neutrophils % (Manual) 87.0 % (42.8-82.8) H 05/24/17 20:49 Lymphocytes % 10.3 % (8-40) 05/28/17 06:00 Lymphocytes % (Manual) 7.0 % (8-40) L 05/24/17 20:49 Monocytes % 6.2 % (3.8-10.2) 05/28/17 06:00 Monocytes % (Manual) 5 % (3.8-10.2) 05/24/17 20:49 Eosinophils % 1.0 % (0-4.5) D 05/28/17 06:00 Basophils % 0.4 % (0-2.0) 05/28/17 06:00 Differential Comment 05/24/17 20:49 Platelet Estimate Adequate 05/24/17 20:49 Platelet Comment 05/24/17 20:49 ESR 107 mm/hr (0-20) H 05/24/17 20:49 PT with INR 17.50 SEC (9.98-11.88) H 05/28/17 10:45 INR 1.55 (0.82-1.09) H 05/28/17 10:45 PTT (Actin FS) 29.7 SECONDS (26.9-34.4) 05/30/17 05:00 VBG pH 7.51 (7.32-7.42) H 05/24/17 20:49 POC VBG pCO2 29.0 mmHg (38-52) L 05/24/17 20:49 POC VBG pO2 110.0 mmHg (28-48) H 05/24/17 20:49 Mixed VBG HCO3 22.9 meq/L (19-25) 05/24/17 20:49 Sodium 135 mmol/L (136-145) L 05/30/17 05:00 Potassium 3.7 mmol/L (3.5-5.1) 05/30/17 05:00 Chloride 97 mmol/L (98-107) L 05/30/17 05:00 Carbon Dioxide 28 mmol/L (21-32) 05/30/17 05:00 Anion Gap 10 (8-16) 05/30/17 05:00 BUN 31 mg/dL (7-18) H 05/30/17 05:00 Creatinine 6.5 mg/dL (0.7-1.3) H D 05/30/17 05:00 Creat Clearance w eGFR 8.70 (>60) 05/30/17 05:00 POC Glucometer 179.46912 UNITS (80-120) 05/30/17 05:07 Random Glucose 146 mg/dL (74-106) H 05/30/17 05:00 Hemoglobin A1c % 8.6 % (4.8-6.0) H D 05/25/17 05:10 Lactic Acid 1.7 mmol/L (0.4-2.0) 05/24/17 20:50 Calcium 7.2 mg/dL (8.5-10.1) L 05/30/17 05:00 Phosphorus 6.0 mg/dL (2.5-4.9) H D 05/28/17 06:00 Magnesium 2.0 mg/dL (1.8-2.4) 05/27/17 05:00 Iron 25 ug/dL (38-169) L 05/28/17 06:00 TIBC 121 ug/dL (250-450) L 05/28/17 06:00 Iron Saturation 21 % (15-55) 05/28/17 06:00 Ferritin 986.531 ng/ml (16.4-293.9) H 05/28/17 06:00 Total Bilirubin 1.0 mg/dL (0.2-1.0) D 05/30/17 05:00 AST 13 U/L (15-37) L D 05/30/17 05:00 ALT 26 U/L (12-78) 05/30/17 05:00 Alkaline Phosphatase 79 U/L (45-117) 05/30/17 05:00 Creatine Kinase 106 IU/L (39-308) 05/24/17 20:49 Troponin I 0.60 ng/ml (0.00-0.05) H 05/25/17 12:00 C-Reactive Protein 25.9 MG/DL (0.00-0.3) H 05/24/17 20:49 Total Protein 5.7 g/dl (6.4-8.2) L 05/30/17 05:00 Albumin 1.9 g/dl (3.4-5.0) L 05/30/17 05:00 Triglycerides 171 mg/dL (35-160) H 05/25/17 05:10 Cholesterol 144 mg/dL (50-200) D 05/25/17 05:10 Total LDL Cholesterol 99 mg/dL (5-100) 05/25/17 05:10 HDL Cholesterol 16 mg/dL (40-60) L D 05/25/17 05:10 TSH 1.39 uIU/ml (0.358-3.74) 05/25/17 05:10 Random Vancomycin 4.577 ug/ml 05/28/17 06:00 Vancomycin Pre-Dose 8.293 ug/ml (5.0-10.0) D 05/30/17 05:00 Opiates Screen Negative ng/ml (VNOWFN=187) 05/26/17 06:45 Methadone Screen Negative ng/ml (GPRRAS=525) 05/26/17 06:45 Barbiturate Screen Negative ng/ml (WWHDHR=201) 05/26/17 06:45 Phencyclidine Screen Negative ng/ml (CUTOFF=25) 05/26/17 06:45 Ur Amphetamines Screen Negative ng/ml (MTUOTM=295) 05/26/17 06:45 MDMA (Ecstasy) Screen Negative ng/ml (HOURDQ=689) 05/26/17 06:45 Benzodiazepines Screen Negative ng/ml (IWVNTU=278) 05/26/17 06:45 Cocaine Screen Negative ng/ml (EHFXVH=301) 05/26/17 06:45 U Marijuana (THC) Screen Negative ng/ml (CUTOFF=50) 05/26/17 06:45 Hepatitis A Ab Total Negative (Negative) 05/25/17 08:16 Hep Bs Antigen Positive (Negative) H 05/25/17 08:16 Hep Bs Antibody Non reactive (.) 05/25/17 08:16 Hep B Core Total Ab Positive (Negative) H 05/25/17 08:16 Hepatitis C Antibody <0.1 s/co ratio (0.0-0.9) 05/25/17 08:16 HIV 1&2 Ag/Ab, 4th Gen Non reactive (Non Reactive) 05/25/17 05:10 Blood Type O POSITIVE 05/24/17 20:40 Antibody Screen Negative 05/24/17 20:40 HOSPITAL COURSE: Date of Admission:05/24/17 Date of Discharge: 05/30/17 Mr. Segundo Arellano is a 61 male with PMhx of HTN, IDDM (non-compliant with insulin), CAD and ESRD (on dialysis MWF) who presented to the ED with nausea and dizziness likely secondary to missing dialysis sessions. He also noted R 4th toe infected blister which appeared to be infected and cyanotic. On examination, patient was found to have gangrenous R 3rd and 4th toes with some patchy ischemic changes on the forefoot. He was also found to have L submetatarsal ulcer about 2cm, likely from uncontrolled diabetes (A1C was 8.6). In the ER, he had leukocytosis, and ECG evident for isolated new onset atrial fibrillation with RVR. His Afib resolved on admission, and he had been in normal sinus during the hospital course. His Cr on presentation was >9, likely from missing dialysis sessions. During his stay, an MRI was done, which confirmed bilateral osteomyelitis in L second and third phalanx, as well as R third and fourth phalanx. He was started on IV Vanc and Zosyn. The patient adamantly refused amputation. Podiatry was consulted and performed a R foot debridement and lavage in addition to L foot ulcer debridement on 05/[address]th. Operative findings included extensive abscess formation with liquefactive abscess tissue to the level of subcutaneous tissue, muscle, tendon and tendon sheath, capsule of 3rd, 4th, 5th R metatarsals. No vascular intervention needed as PVR study demonstrated good arterial flow bilaterally. Patient had multiple discussions by multiple disciplines about the importance of amputation, and fully understands the risks associated with the refusal. He expressed understanding. He was seen by ID (Dr. Kothari/Bernice) who stated that the patient needs buttermilk drier operator antibiotic treatment of vanc/zosyn with Tunneled catheter for at least 6 weeks. Vanc dosage will be guided by routine level checks and will be done at the HD center on days of HD( MWF). Pt refused subacute rehab placment so Zosyn 2.25 mg TID will be done by the patient at home. He was also started on Eliquis 5 mg BID as prophylaxis for the new onset A.fib. Echo was negative for any clots or valvular abnormalities. Pt is also being discharged home with home nursing services for wound care and will follow up with the radiology technologist in his clinic.The patient is aware of the hospital course and agrees with the plan to be discharged Minutes to complete discharge: 45 Discharge Summary Reason For Visit: AFIB,SEPSIS,CELLULITIS Current Active Problems Atrial fibrillation (Acute) Cellulitis (Acute) ESRD (end stage renal disease) on dialysis (Acute) [place] cardiac risk >20% in next 10 years (Acute) New onset a-fib (Acute) Osteomyelitis of left foot (Acute) Osteomyelitis of right foot (Acute) Peripheral arterial disease (Acute) Sepsis (Acute) Condition: Improved - Instructions Diet, Activity, Other Instructions: RECOMMENDATIONS: - You were admitted for osteomyelitis of toes on both feet. - Since you refused amputation, we are going to start you on at least 6 weeks of IV antibiotics - There is a chance your infection does not clear and you will be readmitted for the same infection - You will be discharged on the 3 bags of antibiotics per day with your tunneled catheter - Please use Daskin's antiseptic and daily dressing changes for your foot. Visiting nurse will help you with this - Please allow for partial weight bearing on both feet with the surgical shoes - The dialysis clinic needs to check a Vancomycin level before each dialysis session to dose your Vancomycin. The levels need to be 15-20. MEDICATIONS: - IV Zosyn 2.25gm three times a day for 6 weeks with tunneled catheter - IV Vancomycin 1.5 gram after dialysis on , , . - Eliquis 5mg tablets two times a day for 6 months - Lactobacillus daily to help with constipation - Continue your other home meds such as Lisinopril 2.5 daily, Toprol XL 25 daily, and Atorvastatin 10 HS FOLLOWUP: - We are recommending you use the [facility]. Please follow with Dr. Oscar Marroquin who works under Dr. Clinton, who will be your new Primary care Doctor. Please make an appointment within 2 weeks - Followup with Dr. Sheth (foot surgeon) this Friday - Followup with Dr. Waqar Garcia (broadcast traffic coordinator) within 2 weeks - We recommend you followup with a Priming Mixture Carrier for your Atrial Fibrillation. Follow with Dr. Nye within 3 weeks. You may need further cardiac workup Referrals: Preston Clinton MD [Staff Physician] - 2 Weeks (Referral for Resident Dr. Oscar Marroquin) Demetri Sheth MD [Staff Physician] - 1 Week Jeison Nye MD [Staff Physician] - 3 Weeks Jose Zavaleta MD [Staff Physician] - 3 Weeks Disposition: HOME - Home Medications Comprehensive Discharge Medication List: Ambulatory Orders Metoprolol Succinate [Toprol XL -] 25 mg PO DAILY 12/20/16 Aspirin [ASA -] 81 mg PO DAILY 12/23/16 Tenofovir Disoproxil Fumarate [Viread -] 300 mg PO MOWEFR 05/26/17 Piperacillin/Tazob 2.25 gm [Zosyn 2.25GM Ivpb (Pre-Docked)] 2.25 gm IVPB Q8H # 126 bag 05/29/17 Apixaban [Eliquis] 5 mg PO BID #60 tablet 05/30/17 Atorvastatin Ca [Lipitor] 10 mg PO HS #30 tablet 05/30/17 Lactobacillus Acidophilus [Bacid -] 1 tab PO DAILY #30 tab 05/30/17 Lisinopril [Prinivil] 2.5 mg PO DAILY #30 tablet 05/30/17 Miscellaneous Drug Not In Syst [Outpatient Lab Test] 1 each ASDIR #1 misc 07/16 Vancomycin HCl in Dextrose 5 % [Vancomycin 1.5 Gram/250 ml-D5w] 1.5 gm IV MOWEFR #18 plast..bag 05/30/17 This patient is new to me today: No Emergency Visit: No Critical Care patient: No - Discharge Referral Referred to [facility] No
[2017-05-30] MEDS: MUPIROCIN 2% TOPICAL OINTMENT FOR DECOLONIZATION NS SCH (18:14)
[2017-05-30 19:53] VITALS: BP 130/54; PULSE 80
--- NOTE | 2017-06-02 15:17 | PATH ---
Surgical Pathology Report Patient Name: ELSIE JENSEN [facility]. Rec. #: [id number] /Age/Gender: 1955 (Age: 61) / M Account: [id number] Location: EMERGENCY ROOM Taken: 05/29/2017 Received: 05/29/2017 Reported: 06/02/2017 Physicians: Demetri Sheth DPM Specimen(s) Received RIGHT FOOT ABSCESS Clinical History Osteomyelitis and gangrene right foot, diabetic foot ulcer left foot Final Diagnosis SKIN AND SOFT TISSUE, RIGHT FOOT, DEBRIDEMENT: GANGRENOUS NECROSIS. MARKED VASCULAR CALCIFICATION PRESENT. NO BONE IDENTIFIED. Electronically Signed Chris Liz M.D. Gross Description Received in formalin labeled "right foot abscess," is a 7.0 x 3.8 x 0.5 cm aggregate of necrotic skin and soft tissue fragments. Admissions Manager Rn sections are submitted in one cassette. Following review of the initial specimen, the specimen is reexamined. No definite bone is identified grossly. Additional telesales representative sections are submitted in cassettes 2-5. /05/29/2017 saudi05/29/2017
== END 2017-05-30 20:36 | disposition home or self-care (01) | DRG 853 ==
LOC: JER 18:50 → JERBED 22:52 → J2W 05-25 03:34
PROVIDERS: ADMIT Internal Medicine; ATTEND Internal Medicine
PROC: 0KBV0ZZ Excision of Right Foot Muscle, Open Approach (ICD-10-PCS; 2017-05-29)
PROC: 0KBW0ZZ Excision of Left Foot Muscle, Open Approach (ICD-10-PCS; principal; 2017-05-29 07:30)
PROC: 5A1D90Z Performance of Urinary Filtration, Continuous, Greater than 18 hours Per Day (ICD-10-PCS; 2017-05-30)
PROC: 02HV33Z Insertion of Infusion Device into Superior Vena Cava, Percutaneous Approach (ICD-10-PCS; 2017-05-30)
DX: A41.9 Sepsis, unspecified organism (principal); N18.6 End stage renal disease; M86.172 Other acute osteomyelitis, left ankle and foot; M86.171 Other acute osteomyelitis, right ankle and foot; L03.115 Cellulitis of right lower limb; L03.116 Cellulitis of left lower limb; I12.0 Hypertensive chronic kidney disease with stage 5 chronic kidney disease or end stage renal disease; E11.52 Type 2 diabetes mellitus with diabetic peripheral angiopathy with gangrene; I96 Gangrene, not elsewhere classified; B19.10 Unspecified viral hepatitis B without hepatic coma; E11.69 Type 2 diabetes mellitus with other specified complication; E11.621 Type 2 diabetes mellitus with foot ulcer; L97.529 Non-pressure chronic ulcer of other part of left foot with unspecified severity; E11.22 Type 2 diabetes mellitus with diabetic chronic kidney disease; Z99.2 Dependence on renal dialysis; I25.10 Atherosclerotic heart disease of native coronary artery without angina pectoris; D72.829 Elevated white blood cell count, unspecified; I48.91 Unspecified atrial fibrillation; Z95.1 Presence of aortocoronary bypass graft; R19.7 Diarrhea, unspecified; M54.9 Dorsalgia, unspecified; E78.5 Hyperlipidemia, unspecified; Z91.14 Patient's other noncompliance with medication regimen; D64.9 Anemia, unspecified; E87.70 Fluid overload, unspecified; R65.20 Severe sepsis without septic shock
CPT/HCPCS: 36415; 36558; 71010-TC; 73630-TC-LT; 73630-TC-RT; 73718-LT; 73718-TC; 77001-TC; 80048; 80053; 80061; 80307; 82550; 82728; 82803; 83036; 83540; 83550; 83605; 83721; 83735; 84100; 84443; 84484; 85025; 85027; 85610; 85651; 85730; 86140; 86704; 86706; 86708; 86803; 86850; 86900; 86901; 87040; 87070; 87177; 87186; 87205; 87209; 87324; 87340; 87449; 88304-TC; 93005; 93010; 93306-TC; 93923; 93925-TC; 97116-GP; 97161-GP; 99285-25; C1751; G0480; J0885; J1644

== ENCOUNTER 2017-06-01 10:39 | Inpatient (IN) | payer OTHER ==
[2017-06-01 10:50] VITALS: BMI 34.2
--- NOTE | 2017-06-01 11:07 | PDOC ---
Attending Attestation - Resident Resident Name: Radha Gorman - ED Attending Attestation I have performed the following: I have examined & evaluated the patient, The case was reviewed & discussed with the resident, I agree w/resident's findings & plan, Exceptions are as noted - Medical Decision Making 06/01/17 11:07 I, Dr. Kyara Andrews, DO, attest that this document has been prepared under my direction and personally reviewed by me in its entirety. I further attest, that it accurately reflects all work, treatment, procedures and medical decision -making performed by me. 06/01/17 11:47 a/p: 61yo male with osteomyelitis of the foot -failed management of osteo at home now willing to go to rehab - pt unable to manage the abx, no fevers, no increasing pain, unable to do dressing changes and doesn't feel comfortable with connecting his own IV abx. Requesting to go to rehab now. No worsening fevers/chills/infections/drainage from wound. will check labs and give dose of abx. zosyn tid 2.25g per Dr. Taye Haynes w HD with level dosing Pt on HD MWF 06/01/17 11:50 case discussed with rehabilitation therapist rifle case repairer - will let social work and rifle case repairer know about placing rehab referrals for friday. can't do today. will need obs for iv abx microblog sent to medicine. 06/01/17 12:[address] wright who accepts pt to service. <Kyara Andrews - Last Filed: 06/01/17 12:00> - HPI HPI: 06/01/17 12:04 61 y.o male with significant PMH of bilateral osteomyelitis (refused amputation , prescribed 6 week IV vanc and zosyn,) s/p right foot debridement and lavage and left foot ulcer debridement on 05/29/17, ESRD (on dialysis MWF), IDDM, HTN , and CAD, who presents to the emergency room today because he does not feel comfortable administering his antibiotics and changing his wound dressings at home. The patient previously refused rehab, but is now willing. No fever, chills , nausea, vomiting. PCP: Dr. Clinton ID: Dr. Kothari Chiropractic Doctor: Dr. Nye Youth Court Judge: Dr. Jose Zavaleta - Physicial Exam PE: 06/01/17 12:06 Constitutional: Awake, alert, oriented. No acute distress. Head: Normocephalic. Atraumatic Eyes: PERRL. EOMI. Conjunctivae are not pale. ENT: Mucous membranes are moist and intact. Posterior pharynx without exudates or erythema. Uvula midline. Neck: Supple. Full ROM. No lymphadenopathy. Cardiovascular: Regular rate. Regular rhythm. S1, S2 regular. Distal pulses are 2+ and symmetric. Pulmonary/Chest: No evidence of respiratory distress. Clear to auscultation bilaterally No wheezing, rales or rhonchi. Abdominal: Soft and non-distended. There is no tenderness. No rebound, guarding or rigidity. No organomegaly. No palpable masses. Good bowel sounds. Back: No CVA tenderness. Musculoskeletal: No edema. No cyanosis. No clubbing. Full range of motion in all extremities. Nocalf tenderness. Radial/pedal pulses are intact and 2+ bilaterally Skin: +LUE AV fistula with palpable thrill. +There is a central line in the right chest wall that is clean. +there are wounds on feet bilaterally with wet and dry dressings that were changed here. No petechiae. No purpura. Neurological: Alert and oriented to person, place, and time. Cranial nerves II -XII are grossly intact. Normal speech. Strength is grossly symmetric. No sensory deficits. Psychiatric: Good eye contact. Normal interaction, affect and behavior. <Marguerite Amaya - Last Filed: 06/01/17 12:06> Discharge Disposition - Discharge Dispostion Last Admission D/C Date: 05/30/17 Admit: Yes <Kyara Andrews - Last Filed: 06/01/17 12:00> <Marguerite Amaya - Last Filed: 06/01/17 12:06> - Diagnosis ESRD (end stage renal disease) on dialysis, Osteomyelitis of left foot, Osteomyelitis of right foot - Discharge Dispostion Condition at time of disposition: Stable
--- NOTE | 2017-06-01 11:19 | PDOC ---
History of Present Illness - General Chief Complaint: Pain Stated Complaint: REVISIT Time Seen by Provider: 06/01/17 11:00 History Source: Patient Exam Limitations: No Limitations - History of Present Illness Initial Comments: This is a 61 YOM with h/o ESRD on HD MWF (no missed sessions), IDDM (non- adherent), CAD s/p CABG, and HLD who presents to the ED after being discharged from inpatient at [facility] two days ago with bilateral foot infected ulcers and osteomyelitis, now with with inability to self-administer antibiotics and care for his wounds as instructed. He had refused amputation of toes during his inpatient stay and instead had debridement and was placed on IV antibiotics and had a tunneled catheter placed for long-term (6 wks) antibiotic therapy with Vancomycin 3x/wk and Zosyn 3x/day. He missed two of his three Zosyn doses yesterday (only had one dose at 2 pm yesterday) and has not had any today yet because he has been unable to do this himself. He has been unable to keep the dressings on his wounds too as they are falling off. He additionally endorses diarrhea, but denies fever, chills, chest pain, SOB, palpitations, or other symptoms. Past History - Past Medical History Allergies/Adverse Reactions: Allergies Allergy/AdvReac Type Severity Reaction Status Date / Time No Known Allergies Allergy Verified 06/01/17 10:50 Home Medications: Ambulatory Orders Metoprolol Succinate [Toprol XL -] 25 mg PO DAILY 12/20/16 Aspirin [ASA -] 81 mg PO DAILY 12/23/16 Tenofovir Disoproxil Fumarate [Viread -] 300 mg PO MOWEFR 05/26/17 Piperacillin/Tazob 2.25 gm [Zosyn 2.25GM Ivpb (Pre-Docked)] 2.25 gm IVPB Q8H # 126 bag 05/29/17 Apixaban [Eliquis] 5 mg PO BID #60 tablet 05/30/17 Atorvastatin Ca [Lipitor] 10 mg PO HS #30 tablet 05/30/17 Lactobacillus Acidophilus [Bacid -] 1 tab PO DAILY #30 tab 05/30/17 Lisinopril [Prinivil] 2.5 mg PO DAILY #30 tablet 05/30/17 Vancomycin HCl in Dextrose 5 % [Vancomycin 1.5 Gram/250 ml-D5w] 1.5 gm IV MOWEFR #18 plast..bag 05/30/17 Anemia: No Asthma: No Cancer: No Cardiac Disorders: Yes (BYPASS SX, CARDIAC STENTS) CVA: No COPD: No CHF: No ((A "FEW yEARS AGO)) Dementia: No Diabetes: Yes Dialysis: Yes (M-W-F) GI Disorders: Yes (Hepatitis b) Disorders: No HTN: Yes Hypercholesterolemia: Yes 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) Seizures: No Thyroid Disease: No - Surgical History Abdominal Surgery: No Appendectomy: Yes Cardiac Surgery: Yes (4 bypass) Cholecystectomy: No Lung Surgery: No Neurologic Surgery: No Orthopedic Surgery: Yes (4 BACK SURGERIES, 3 NECK SURGERY) - Immunization History Immunization Up to Date: Yes - Suicide/Smoking/Psychosocial Hx Smoking Status: No Smoking History: Never smoked Have you smoked in the past 12 months: No Number of Cigarettes Smoked Daily: 0 Hx Alcohol Use: No Drug/Substance Use Hx: No Substance Use Type: None Hx Substance Use Treatment: No Review of Systems - Review of Systems Constitutional: No: Chills, Fever, Unexplained wgt Loss HEENTM: No: Nose Congestion, Throat Pain Respiratory: No: Cough, Shortness of Breath Cardiac (ROS): No: Chest Pain, Palpitations ABD/GI: Yes: Diarrhea. No: Constipated, Nausea, Vomiting : No: Burning, Dysuria Musculoskeletal: No: Back Pain, Neck Pain Integumentary: No: Bruising, Rash Neurological: No: Headache, Numbness, Tingling, Weakness, Dizziness Endocrine: No: Unexplained Weight Gain, Unexplained Weight Loss *Physical Exam - Vital Signs Last Vital Signs Temp Pulse Resp BP Pulse Ox 98.0 F 98 H 20 141/77 98 06/01/17 10:44 06/01/17 10:44 06/01/17 10:44 06/01/17 10:44 06/01/17 10:44 - Physical Exam General Appearance: Yes: Nourished, Appropriately Dressed, Obese, Other ( patient in wheelchair, asks that we review his [facility] records for any medical history, able to move all extremities, answering questions appropriately, appears frustrated). No: Apparent Distress HEENT: positive: EOMI, BEN, Normal Voice, Hearing Grossly Normal. negative: Scleral Icterus (R), Scleral Icterus (L), Nasal Congestion Neck: positive: Trachea midline, Supple. negative: Tender, Rigid Respiratory/Chest: positive: Lungs Clear, Normal Breath Sounds. negative: Respiratory Distress, Crackles, Rhonchi, Stridor, Wheezing Cardiovascular: positive: Regular Rhythm, Regular Rate. negative: Murmur Gastrointestinal/Abdominal: positive: Normal Bowel Sounds, Soft. negative: Tender, Organomegaly, Pulsatile Mass, Guarding Musculoskeletal: positive: Normal Inspection. negative: Decreased Range of Motion, Vertebral Tenderness Extremity: positive: Normal Capillary Refill, Normal Inspection, Normal Range of Motion, Other (sole of left foot with 2x1.2x0.2 cm ulcer, left 3rd tow with nail avulsion and exposed nail bed, right foot with 10.5x6x1.2 cm ulcer, dorsal 3rd and entire 4th digit on right foot full digital eschar). negative: Tender, Cyanosis Integumentary: positive: Normal Color, Dry, Warm. negative: Erythema, Rash, Bruising Neurologic: positive: light technician II-XII NML intact (grossly), Fully Oriented, Alert, Normal Mood/Affect, Normal Response, Motor Strength 11/01 ED Treatment Course - LABORATORY CBC & Chemistry Diagram: 06/01/17 11:45 06/01/17 11:45 Medical Decision Making - Medical Decision Making 61 YOM recently discharged on 6 wk course of Vanc and Zosyn which he is unable to self-administer at home. Missed two doses of Zosyn yesterday and no anx dosed so far today. Home health aide has cat allergy, patient has a cat, and he is unable to move the cat. Patient more amenable to going to rehab facility now. Ordered is his Zosyn dose and loperamide as requested by the patient which was given while he was IP. Ordered also is C. diff culture as the patient has had diarrhea thought d/t antibiotics. Test ordered are CBCD, CMP, coags. Patient is admitted to obs med/surg as the family independence case manager will be able to work on his SNF discharge tomorrow. *DC/Admit/Observation/Transfer Diagnosis at time of Disposition: ESRD (end stage renal disease) on dialysis Osteomyelitis of left foot Qualifiers: Osteomyelitis type: unspecified type Qualified Code(s): M86.9 - Osteomyelitis, unspecified Osteomyelitis of right foot Qualifiers: Osteomyelitis type: unspecified type Qualified Code(s): M86.9 - Osteomyelitis, unspecified - Discharge Dispostion Condition at time of disposition: Guarded Admit: Yes - Referrals - Patient Instructions - Post Discharge Activity
[2017-06-01] MEDS ORDERED: PIPERACILLIN/TAZOB 2.25 GM/50 ML PRE-DOCKED BAG IVPB ONE (11:25)
[2017-06-01 12:09] LABS: BASOPHIL 1.2 % (0-2.0); EOSINOPHIL 1.4 % (0-4.5); MCH 30.5 pg (25.7-33.7); MCHC 32.8 g/dl (32.0-35.9); NEUTROPHILS 81.6 % (42.8-82.8); PLATELET COUNT 306 K/MM3 (134-434); RDW 13.8 % (11.9-15.9); WHITE BLOOD COUNT 16.5 K/mm3 (4.0-10.0)
[2017-06-01 12:22] LABS: INR 1.55 (0.82-1.09); PROTHROMBIN TIME (PATIENT) 17.5 SEC (9.98-11.88)
[2017-06-01] MEDS ORDERED: LOPERAMIDE HCL 2 MG CAPSULE PO ONE (12:24)
[2017-06-01] MEDS ORDERED: LOPERAMIDE HCL 2 MG CAPSULE ONE (12:27)
[2017-06-01 12:28] LABS: ALBUMIN 2.3 g/dl (3.4-5.0); ANION GAP 10 (8-16); CALCIUM 7.8 mg/dL (8.5-10.1); CO2 29 mmol/L (21-32); CREATININE 6.8 mg/dL (0.7-1.3); GLUCOSE,RANDOM 183 mg/dL (74-106); SGPT/ALT 22 U/L (12-78)
[2017-06-01 12:30] LABS: ALK PHOS 72 U/L (45-117); BILIRUBIN,TOTAL 0.5 mg/dL (0.2-1.0); TOT PROT 6.5 g/dl (6.4-8.2)
[2017-06-01 12:40] LABS: SGOT/AST 17 U/L (15-37)
[2017-06-01] MEDS ORDERED: TAZOB IVPB SCH (12:45)
[2017-06-01] MEDS ORDERED: PIPERACILLIN IVPB SCH (12:45)
[2017-06-01] MEDS ORDERED: ASPIRIN 81 MG CHEWABLE TABLETS ONE (12:59)
[2017-06-01] MEDS ORDERED: METOPROLOL SUCCINATE 50 MG TAB.SR.24H (FP) ONE (12:59)
[2017-06-01] MEDS ORDERED: LISINOPRIL 5 MG TABLET (FP) ONE (12:59)
[2017-06-01] MEDS: LISINOPRIL 5 MG TABLET (FP) PO SCH (13:07)
[2017-06-01] MEDS: METOPROLOL SUCCINATE 25 MG TAB.SR.24H (FP) PO SCH (13:07)
[2017-06-01] MEDS: ASPIRIN 81 MG CHEWABLE TABLETS PO SCH (13:07)
--- NOTE | 2017-06-01 13:44 | HP ---
CHIEF COMPLAINT: inability to administer antibiotics PCP: Dr. Hernandez HISTORY OF PRESENT ILLNESS: 61 year old male with a past medical history of DM, CAD, HTN, ESRD on HD MWF, presented to the ED only 2 days after being discharged from [facility] for the inability to give himself IV antibiotics. Patient was previously admitted to the hospital for osteomyelitis of his R fourth toe and a L foot plantar ulcer. Patient was seen by Dr. Sheth and adamantly refused amputation. He had a debridement performed and he was discharged with a PICC line on a course of vancomycin 3x/week and zosyn 3x/day. At home, patient was compliant with HD. When visiting nurse came to teach the patient how to administer antibiotics, she set up the medications for him. Patient states that she did not explain to him how to do it himself, and thus he did not receive his 2nd and 3rd doses of zosyn yesterday. Patient denies fevers, chills, nausea, vomiting, diarrhea, chest pain, shortness of breath. Patient states that he has some pain in his feet but it is controlled. Patient has both feet wrapped in gauze and the dressing appears clean. ER course was notable for: (1) 1 zosyn administration (2) leukocytosis (3) Recent Travel: [place] PAST MEDICAL HISTORY: DM, Hepatitis B, ESRD, CAD, HTN PAST SURGICAL HISTORY: Debridement Social History: Smoking: Alcohol: Drugs: Family History: Allergies No Known Allergies Allergy (Verified 06/01/17 10:50) HOME MEDICATIONS: Home Medications Medication Instructions Recorded Metoprolol Succinate [Toprol XL -] 25 mg PO DAILY 12/20/16 Aspirin [ASA -] 81 mg PO DAILY 12/23/16 Tenofovir Disoproxil Fumarate 300 mg PO MOWEFR 05/26/17 [Viread -] Piperacillin/Tazob 2.25 gm [Zosyn 2.25 gm IVPB Q8H #126 bag 05/29/17 2.25GM Ivpb (Pre-Docked)] Apixaban [Eliquis] 5 mg PO BID #60 tablet 05/30/17 Atorvastatin Ca [Lipitor] 10 mg PO HS #30 tablet 05/30/17 Lactobacillus Acidophilus [Bacid -] 1 tab PO DAILY #30 tab 05/30/17 Lisinopril [Prinivil] 2.5 mg PO DAILY #30 tablet 05/30/17 Vancomycin HCl in Dextrose 5 % 1.5 gm IV MOWEFR #18 plast..bag 05/30/17 [Vancomycin 1.5 Gram/250 ml-D5w] REVIEW OF SYSTEMS CONSTITUTIONAL: Absent: fever, chills, diaphoresis, generalized weakness, malaise, loss of appetite, weight change HEENT: Absent: rhinorrhea, nasal congestion, throat pain, throat swelling, difficulty swallowing, mouth swelling, ear pain, eye pain, visual changes CARDIOVASCULAR: Absent: chest pain, syncope, palpitations, irregular heart rate, lightheadedness , peripheral edema RESPIRATORY: Absent: cough, shortness of breath, dyspnea with exertion, orthopnea, wheezing, stridor, hemoptysis GASTROINTESTINAL: Absent: abdominal pain, abdominal distension, nausea, vomiting, diarrhea, constipation, melena, hematochezia GENITOURINARY: Absent: dysuria, frequency, urgency, hesitancy, hematuria, flank pain, genital pain MUSCULOSKELETAL: Absent: myalgia, arthralgia, joint swelling, back pain, neck pain SKIN: Absent: rash, itching, pallor HEMATOLOGIC/IMMUNOLOGIC: Absent: easy bleeding, easy bruising, lymphadenopathy, frequent infections ENDOCRINE: Absent: unexplained weight gain, unexplained weight loss, heat intolerance, cold intolerance NEUROLOGIC: Absent: headache, focal weakness or paresthesias, dizziness, unsteady gait, seizure, mental status changes, bladder or bowel incontinence PSYCHIATRIC: Absent: anxiety, depression, suicidal or homicidal ideation, hallucinations. PHYSICAL EXAMINATION Vital Signs - 24 hr 06/01/17 06/01/17 06/01/17 10:44 12:25 12:56 Temperature 98.0 F Pulse Rate 98 H 84 Pulse Rate [ 75 Apical] Respiratory 20 18 Rate Blood Pressure 141/77 100/75 Blood Pressure 138/78 [Left Arm] O2 Sat by Pulse 98 97 98 Oximetry (%) GENERAL: Awake, alert, and fully oriented, in no acute distress. HEAD: Normal with no signs of trauma. EYES: Pupils equal, round and reactive to light, extraocular movements intact, sclera anicteric, conjunctiva clear. No lid lag. EARS, NOSE, THROAT: Ears normal, nares patent, oropharynx clear without exudates. Moist mucous membranes. NECK: Normal range of motion, supple without lymphadenopathy, JVD, or masses. LUNGS: Breath sounds equal, clear to auscultation bilaterally. No wheezes, and no crackles. No accessory muscle use. HEART: Regular rate and rhythm, normal S1 and S2 without murmur, rub or gallop. ABDOMEN: Soft, nontender, not distended, normoactive bowel sounds, no guarding, no rebound, no masses. No hepatomegaly or splenomegaly. MUSCULOSKELETAL: Normal range of motion at all joints. No bony deformities or tenderness. No CVA tenderness. PICC line placed in upper chest UPPER EXTREMITIES: 2+ pulses, warm, well-perfused. No cyanosis. No clubbing. No peripheral edema. LOWER EXTREMITIES: 2+ pulses, warm, well-perfused. No calf tenderness. No peripheral edema. NEUROLOGICAL: Cranial nerves II-XII intact. Normal speech. Normal gait. PSYCHIATRIC: Cooperative. Good eye contact. Appropriate mood and affect. SKIN: Warm, dry, normal turgor, no rashes or lesions noted, normal capillary refill. Laboratory Results - last 24 hr 06/01/17 06/01/17 06/01/17 11:45 11:45 11:45 WBC 16.5 H RBC 3.41 L Hgb 10.4 L Hct 31.7 L MCV 93.0 MCH 30.5 MCHC 32.8 RDW 13.8 Plt Count 306 D MPV 10.0 Neutrophils % 81.6 Lymphocytes % 9.8 Monocytes % 6.0 Eosinophils % 1.4 Basophils % 1.2 PT with INR 17.50 H INR 1.55 H Sodium 138 Potassium 3.9 Chloride 99 Carbon Dioxide 29 Anion Gap 10 BUN 26 H Creatinine 6.8 H Creat Clearance w eGFR 8.26 Random Glucose 183 H D Calcium 7.8 L Total Bilirubin 0.5 D AST 17 D ALT 22 Alkaline Phosphatase 72 Total Protein 6.5 Albumin 2.3 L D ASSESSMENT/PLAN: 61 year old male, non compliant, presents with dizziness, found to be septic with new onset atrial fibrillation. #Osteomyelitis of the b/l feet -patient has picc line inserted -given 1 dose zosyn in ED, continue 3x a day -vanc to be given tomorrow -ID consult Dr. Kothari -Podiatry Dr. Sheth consult #ESRD: patient is compliant with dialysis and has not missed appointments -HD MWF -to get dialyzed friday -renal consulted, Dr. Zavaleta #Diabetes mellitus type II: non compliant -Insulin Sliding scale -bgm ACHS #Atrial fibrillation - controlled -[id number] 2 #Hypertension: controlled -metoprolol 25 QD -hold if antihypertensives if patient becomes hypertensive #Coronary Artery Disease: -asa 81mg po daily -continue atorvastatin 10mg PO QD -continue lisinopril 2.5mg PO daily #Hepatitis B: -continue tenofovir #FEN -no standing fluids -diabetic low sodium diet -electrolytes within normal limits #Prophylaxis -heparin 5000 SubQ BID #Disposition -monitor on med-surg -patient to get dialysis tomorrow Visit type - Emergency Visit Emergency Visit: Yes ED Registration Date: 06/01/17 Care time: The patient presented to the Emergency Department on the above date and was hospitalized for further evaluation of their emergent condition. - New Patient This patient is new to me today: Yes Date on this admission: 06/01/17 - Critical Care Critical Care patient: No
[2017-06-01] MEDS: INSULIN SLIDING SCALE (NOVOLOG) 1 VIAL SQ SCH ×3 (14:45→21:27)
--- NOTE | 2017-06-01 14:51 | PN ---
Teaching Attending Note Name of Resident: Oscar Marroquin ATTENDING PHYSICIAN STATEMENT I saw and evaluated the patient. I reviewed the resident's note and discussed the case with the resident. I agree with the resident's findings and plan as documented. SUBJECTIVE:61yo M with PMH ESRD, HBV on treatment, DM, CHF and recently diagnosed B/L foot OM and refused amputation. Both feet were debrided and he was discharged on 05/30 to home with tunneled catheter for 8 weeks IV therapy. It was recommended pt go to SNF for treatment but pt refused, wanted to go home to do abx himself but once going home felt uncomfortable hanging ABx. pt is asymptomatic other than intermittent diarrhea which he has had for the past week. no loose BM at this time. denies CP, SOB, fever, chills, N/V/C/D OBJECTIVE: Last Vital Signs Temp Pulse Resp BP Pulse Ox 97.6 F 75 18 139/78 98 06/01/17 14:22 06/01/17 14:22 06/01/17 14:22 06/01/17 14:22 06/01/17 12:56 General NAD ASSESSMENT AND PLAN: 61yo M with PMH ESRD, HBV on treatment, DM, CHF presented to the ER with complaints of R foot infection that was worsening 1. B/L foot OM- s/p debridement on 05/30. failed outpatient therapy. leukocytosis stable. afebrile. cont Zosyn via tunneled catheter. Vanco with HD. check vanco level tomorrow. will arrange for SNF placement for abx duration. ID and podiatry consulted. 2. Diarrhea- last admission negative for cdiff. no loose BM at this time. start banatol,loperamide. 3. afib- rate controlled. on metoprolol and eliquis 4. CHF- no signs of volume overload. cont asa/lipitor/metoprolol 5. ESRD on HD- cont HD per normal schedule (MWF). consult nephrology to resume HD. fluid restriction 6. DM- A1c 8.6. start oral medication, was not taking at home. start low dose glipizide. cont iss. 7. anemia of chronic disease- Hgb stable. no signs of bleeding. no indication for txn. 8. HBV- on tenofovir 9. DVT ppx- eliquis 10. Spoke with [facility] to be sent out in AM for SNF placement
[2017-06-01] MEDS: LACTOBACILLUS ACIDOPHILUS 1 EACH TAB (FP) PO SCH (14:57)
[2017-06-01] MEDS: APIXABAN 5 MG TABLET PO SCH ×2 (14:57→21:26)
[2017-06-01] MEDS ORDERED: HEPARIN NA (PORCINE) 5,000 UNITS/ML 1ML VIAL SQ SCH (15:00)
--- NOTE | 2017-06-01 17:37 | CON.ID ---
Consult Consult Specialty:: Infectious Disease - History of Present Illness Chief Complaint: unable to self-administer IV antibiotics - History Source History Provided By: Patient Limitations to Obtaining History: No Limitations - Past Medical History Cardio/Vascular: Yes: CAD, HTN, Hyperlipdemia Pulmonary: Yes: COPD Hepatobiliary: Yes: Hepatitis B Renal/: Yes: Renal Failure, Renal Inusuff, Hemodialysis Infectious Disease: Yes: Other (Hepatitis B) Musculoskeletal: Yes: Chronic low back pain, Other (back pain) Endocrine: Yes: Diabetes Mellitus - Past Surgical History Past Surgical History: Yes: Laminectomy, CABG - Alcohol/Substance Use Hx Alcohol Use: No - Smoking History Smoking history: Never smoked Have you smoked in the past 12 months: No Aproximately how many cigarettes per day: 0 - Social History ADL: Independent History of Recent Travel: Yes ([place] x 1 wk) Home Medications - Allergies Allergies/Adverse Reactions: Allergies Allergy/AdvReac Type Severity Reaction Status Date / Time No Known Allergies Allergy Verified 06/01/17 10:50 - Home Medications Home Medications: Ambulatory Orders Metoprolol Succinate [Toprol XL -] 25 mg PO DAILY 12/20/16 Aspirin [ASA -] 81 mg PO DAILY 12/23/16 Tenofovir Disoproxil Fumarate [Viread -] 300 mg PO MOWEFR 05/26/17 Piperacillin/Tazob 2.25 gm [Zosyn 2.25GM Ivpb (Pre-Docked)] 2.25 gm IVPB Q8H # 126 bag 05/29/17 Apixaban [Eliquis] 5 mg PO BID #60 tablet 05/30/17 Atorvastatin Ca [Lipitor] 10 mg PO HS #30 tablet 05/30/17 Lactobacillus Acidophilus [Bacid -] 1 tab PO DAILY #30 tab 05/30/17 Lisinopril [Prinivil] 2.5 mg PO DAILY #30 tablet 05/30/17 Vancomycin HCl in Dextrose 5 % [Vancomycin 1.5 Gram/250 ml-D5w] 1.5 gm IV MOWEFR #18 plast..bag 05/30/17 Family Disease History - Family Disease History Family Disease History: CA: Father, Mother (ovarian) Review of Systems - Review of Systems Constitutional: reports: No Symptoms Eyes: reports: No Symptoms HENT: reports: No Symptoms Neck: reports: No Symptoms Cardiovascular: reports: No Symptoms Respiratory: reports: No Symptoms Gastrointestinal: reports: Diarrhea (loose BMs prior to recent discharge CDT negative, no loose BM today) Genitourinary: reports: No Symptoms Musculoskeletal: reports: No Symptoms Integumentary: reports: No Symptoms, Wound (RT foot wound s/p drainage and debridement, Lt heel ulcer) Neurological: reports: No Symptoms Endocrine: reports: No Symptoms Hematology/Lymphatic: reports: No Symptoms Physical Exam Vital Signs: Vital Signs Temperature 97.6 F 06/01/17 14:22 Pulse Rate 75 06/01/17 14:22 Respiratory Rate 18 06/01/17 14:22 Blood Pressure 139/78 06/01/17 14:22 O2 Sat by Pulse Oximetry (%) 98 06/01/17 12:56 Constitutional: Yes: No Distress, Calm HENT: Yes: Atraumatic Neck: Yes: Supple Cardiovascular: Yes: Regular Rate and Rhythm Respiratory: Yes: CTA Bilaterally Gastrointestinal: Yes: Normal Bowel Sounds, Soft ...Rectal Exam: Yes: Deferred Renal/: Yes: WNL Extremities: Yes: Other (Rt foot ischemic changes of 3/4/5 toes, dorsal wound Lt heel ulcer) Integumentary: Yes: WNL Wound/Incision: Yes: Dressing Dry and Intact Psychiatric: Yes: Alert Labs: CBC, BMP 06/01/17 11:45 06/01/17 11:45 Problem List - Problems (1) ESRD (end stage renal disease) on dialysis Code(s): N18.6 - END STAGE RENAL DISEASE; Z99.2 - DEPENDENCE ON RENAL DIALYSIS (2) Osteomyelitis of left foot Code(s): M86.9 - OSTEOMYELITIS, UNSPECIFIED Qualifiers: Osteomyelitis type: unspecified type Qualified Code(s): M86.9 - Osteomyelitis, unspecified (3) Osteomyelitis of right foot Code(s): M86.9 - OSTEOMYELITIS, UNSPECIFIED Qualifiers: Osteomyelitis type: unspecified type Qualified Code(s): M86.9 - Osteomyelitis, unspecified (4) Atrial fibrillation Code(s): I48.91 - UNSPECIFIED ATRIAL FIBRILLATION Qualifiers: Atrial fibrillation type: unspecified Qualified Code(s): I48.91 - Unspecified atrial fibrillation (5) Diabetes Code(s): E11.9 - TYPE 2 DIABETES MELLITUS WITHOUT COMPLICATIONS (6) New onset a-fib Code(s): I48.91 - UNSPECIFIED ATRIAL FIBRILLATION (7) Peripheral arterial disease Code(s): I73.9 - PERIPHERAL VASCULAR DISEASE, UNSPECIFIED Assessment/Plan 61 y.o. male recently admitted with Sepsis, necrotic and ischemic changes of Rt toes,cellulitis and abscess and Lt heel ulcer, ESRD on HD, uncontrolled DM, PVD. He is s/p Rt foot extensive debridement and drainage as well as Lt foot ulcer debridement. Pt adamantly refused amputation of Rt foot toes despite recommendations. Had been discharged home on IV antibiotics but returns now due to inability to self-administer them or take proper care of his foot wounds. Pt currently without distress. Had loose stools in the last few days but no BMs today. Denies abd pain/n/v, fever, or chills - resume Zosyn and Vancomycin IV as scheduled - check Vancomycin Trough level prior to next HD - continue wound care - needs tight glycemic control
[2017-06-01] MEDS: BANATROL PLUS POWDER PACKET PO SCH ×2 (17:42→21:27)
[2017-06-01] MEDS: glipiZIDE 5 MG TABLET (FP) PO SCH (17:47)
[2017-06-01] MEDS: PIPERACILLIN/TAZOB 2.25 GM 2.25 GM in DEXTROSE 5%-WATER - 50 ML IVPB SCH (17:47)
[2017-06-01] MEDS ORDERED: PIPERACILLIN/TAZOB 2.25 GM 2.25 GM in DEXTROSE 5%-WATER - 50 ML IVPB SCH (20:00)
[2017-06-01] MEDS ORDERED: PT OWN MED DRAWER 7, Y5N ONE (21:06)
[2017-06-01] MEDS: ATORVASTATIN CA 10 MG TABLET (FP) PO SCH (21:26)
[2017-06-02] MEDS ORDERED: PT OWN MED DRAWER 7, Y5N ONE ×5 (01:34→16:42)
[2017-06-02] MEDS: PIPERACILLIN/TAZOB 2.25 GM 2.25 GM in DEXTROSE 5%-WATER - 50 ML IVPB SCH ×3 (01:54→18:17)
[2017-06-02] MEDS: BANATROL PLUS POWDER PACKET PO SCH ×3 (05:59→22:33)
[2017-06-02] MEDS: INSULIN SLIDING SCALE (NOVOLOG) 1 VIAL SQ SCH ×4 (05:59→22:37)
[2017-06-02] MEDS: glipiZIDE 5 MG TABLET (FP) PO SCH (06:38)
--- NOTE | 2017-06-02 08:54 | PN ---
Physical Exam: SUBJECTIVE: Patient seen and examined. Asymptomatic. States the he wasn't able to learn how to do home infusions. Prefers to go home, but understands importance of learning infusion. He is willing to try rehab. Diarrhea resolved. OBJECTIVE: Vital Signs Period Temp Pulse Resp BP Sys/Palafox Pulse Ox Last 24 Hr 97.6 F-98.2 F 62-98 18-20 100-147/60-78 97-98 GEN: AAOx3, NAD, Lying inb ed comfortably HEENT: PERRLA, EOMi CV: S1, S2, RRR LUNG: CTABL ABD: Soft, NT, ND MSK: Dressings on bilateral feet, mild swelling. ROM intact. Active Medications Generic Name Dose Route Start Last Admin Trade Name Freq PRN Reason Stop Dose Admin Apixaban 5 mg 06/01/17 12:45 06/01/17 21:26 Eliquis - PO 5 mg BID LORRI Administration Aspirin 81 mg 06/01/17 12:45 06/01/17 13:07 Asa - PO 81 mg DAILY LORRI Administration Atorvastatin Calcium 10 mg 06/01/17 22:00 06/01/17 21:26 Lipitor - PO 10 mg HS LORRI Administration Glipizide 5 mg 06/01/17 17:15 06/02/17 06:38 Glucotrol - PO 5 mg DAILY@0700 LORRI Administration Piperacillin Sod/Tazobactam 50 mls @ 100 mls/hr 06/01/17 18:00 06/02/17 01:54 Sod 2.25 gm/ Dextrose IVPB 100 mls/hr Q8H-IV LORRI Administration Vancomycin HCl 1,500 mg/ 500 mls @ 250 mls/hr 06/02/17 10:00 Dextrose IVPB MoWeFr LORRI Insulin Aspart 1 vial 06/01/17 13:45 06/02/17 05:59 Novolog Vial Sliding Scale - SQ Not Given ACHS LORRI Protocol Lactobacillus Acidophilus 1 tab 06/01/17 12:45 06/01/17 14:57 Bacid - PO 1 tab DAILY LORRI Administration Lisinopril 2.5 mg 06/01/17 12:45 06/01/17 13:07 Prinivil PO 2.5 mg DAILY LORRI Administration Loperamide HCl 2 mg 06/01/17 16:15 Imodium - PO Q8H PRN DIARRHEA Metoprolol Succinate 25 mg 12/03/17 12:45 06/01/17 13:07 Toprol Xl - PO 25 mg DAILY LORRI Administration Tenofovir Disoproxil Fumarate 300 mg 06/02/17 12:42 Viread - PO MOWEFR [facility] ASSESSMENT/PLAN: 61yo M with PMH ESRD, HBV on treatment, DM, CHF presented to the ER with complaints of R foot infection that was worsening. # Bilateral foot Osteomyelitis - s/p debridement on 05/30. +MSSA. Needs long-term abx since he refused amputation. Was sent home on Zosyn TID w/ tunneled catheter and Vanc during dialysis. Refused SNF. Now admitted because he was unable to self administer antibiotics even after teaching. Now agreeable to SNF. Needs at least 6 weeks of antibiotics # Diarrhea - Since last admission. Cdiff negative. Continue banatrol flakes, immodium, and bacid # ESRD on HD - cont HD per normal schedule (MWF). consult nephrology to resume HD. fluid restriction # DM- A1c 8.6. Was not taking home meds. Started low dose glipizide. cont iss. # Hx of Afib - Sinus. On metoprolol and Eliquis 5 BID # CHF - Not in exacerbation. Continue HD, metoprolol. # Anemia of CD - Stable H/H, monitor, no transfusion needed # HBV- Continue home Tenofovir # FEN - No IVF, elec wnl, renal diet # PPx - Eliquis, no GI needed, PT ordered # Dispo - [facility] sent in AM for SNF. Patient agreeable d/w Dr Barrett Cartwright mD - PGY1 Internal Medicine Visit type - Emergency Visit Emergency Visit: No - New Patient This patient is new to me today: No - Critical Care Critical Care patient: No - Discharge Referral Referred to [facility] Med [facility] No
[2017-06-02] MEDS: LACTOBACILLUS ACIDOPHILUS 1 EACH TAB (FP) PO SCH (10:19)
[2017-06-02] MEDS: ASPIRIN 81 MG CHEWABLE TABLETS PO SCH (10:20)
[2017-06-02] MEDS: LOPERAMIDE HCL 2 MG CAPSULE PO PRN (10:23)
--- NOTE | 2017-06-02 12:25 | PN ---
Teaching Attending Note Name of Resident: Pankaj Cartwright ATTENDING PHYSICIAN STATEMENT I saw and evaluated the patient. I reviewed the resident's note and discussed the case with the resident. I agree with the resident's findings and plan as documented. SUBJECTIVE:asymptomatic. no repeat episodes of diarrhea. denies CP, SOB, fever, chills, N/V/C OBJECTIVE: Last Vital Signs Temp Pulse Resp BP Pulse Ox 98.7 F 67 18 124/67 98 06/02/17 11:40 06/02/17 12:15 06/02/17 12:15 06/02/17 12:15 06/01/17 21:00 General NAD ASSESSMENT AND PLAN: 61yo M with PMH ESRD, HBV on treatment, DM, CHF presented to the ER with complaints of R foot infection that was worsening 1. B/L foot OM- s/p debridement on 05/30. failed outpatient therapy. cont Zosyn via tunneled catheter. Vanco with HD. will need 8 weeks IV Abx therapy. awaiting vanco level. will arrange for SNF placement for abx duration. ID and podiatry consulted. 2. Diarrhea- last admission negative for cdiff. no loose BM at this time. on banatol,loperamide. 3. afib- rate controlled. on metoprolol and eliquis 4. CHF- no signs of volume overload. cont asa/lipitor/metoprolol 5. ESRD on HD- cont HD per normal schedule (MWF). HD today. nephrology on board. fluid restriction 6. DM- A1c 8.6. start low dose glipizide. monitor for hypoglycemia. cont iss. 7. anemia of chronic disease- Hgb stable. no signs of bleeding. no indication for txn. 8. HBV- on tenofovir 9. DVT ppx- eliquis 10. now agreeable to SNF placement for snf abx as pt was unable to complete at home. [facility] to be sent today
[2017-06-02 12:29] LABS: MCH 30.3 pg (25.7-33.7); MCHC 32.5 g/dl (32.0-35.9); MEAN CELL VOLUME 93.1 fl (80-96); MEAN PLT VOLUME 9.7 fl (7.5-11.1); PLATELET COUNT 311 K/MM3 (134-434); RDW 13.7 % (11.9-15.9); WHITE BLOOD COUNT 12.9 K/mm3 (4.0-10.0)
[2017-06-02] MEDS ORDERED: EPOETIN ALFA 2,000 UNITS/1 ML VIAL IVPUSH ONE (12:30)
[2017-06-02] MEDS ORDERED: [UNRECOGNIZED DRUG - OTHER] IV SCH (12:42)
[2017-06-02] MEDS ORDERED: VANCOMYCIN HCL IN DEXTROSE 5% IV SCH (12:42)
[2017-06-02 12:54] LABS: ANION GAP 12 (8-16); CALCIUM 7.4 mg/dL (8.5-10.1); CO2 28 mmol/L (21-32); GLUCOSE,RANDOM 136 mg/dL (74-106); PHOSPHOROUS 5.4 mg/dL (2.5-4.9)
[2017-06-02 13:01] LABS: CREATININE 7.7 mg/dL (0.7-1.3)
[2017-06-02] MEDS: VANCOMYCIN 1,500 MG in DEXTROSE 5%-WATER - 500 ML IVPB SCH (13:53)
--- NOTE | 2017-06-02 14:42 | MSN ---
Progress Note (short form) - Note Progress Note: SUBJECTIVE: Pt seen at bedside. States pain is controlled. Asymptomatic this AM. States resolution of diarrhea, present on admission. Denies any CP, palpitations, SOB, fever, chills, nausea, vomiting, constipation, or any urinary symptoms. OBJECTIVE Last Vital Signs Temp Pulse Resp BP Pulse Ox 98.7 F 75 18 155/84 98 06/02/17 11:40 06/02/17 14:15 06/02/17 14:15 06/02/17 14:15 06/02/17 09:00 Refused physical exam and to "just look in my chart" Laboratory Last Values WBC 12.9 K/mm3 (4.0-10.0) H 06/02/17 11:45 RBC 3.23 M/mm3 (4.00-5.60) L 06/02/17 11:45 Hgb 9.8 GM/dL (11.7-16.9) L 06/02/17 11:45 Hct 30.0 % (35.4-49) L 06/02/17 11:45 MCV 93.1 fl (80-96) 06/02/17 11:45 MCH 30.3 pg (25.7-33.7) 06/02/17 11:45 MCHC 32.5 g/dl (32.0-35.9) 06/02/17 11:45 RDW 13.7 % (11.9-15.9) 06/02/17 11:45 Plt Count 311 K/MM3 (134-434) 06/02/17 11:45 MPV 9.7 fl (7.5-11.1) 06/02/17 11:45 Neutrophils % 81.6 % (42.8-82.8) 06/01/17 11:45 Lymphocytes % 9.8 % (8-40) 06/01/17 11:45 Monocytes % 6.0 % (3.8-10.2) 06/01/17 11:45 Eosinophils % 1.4 % (0-4.5) 06/01/17 11:45 Basophils % 1.2 % (0-2.0) 06/01/17 11:45 PT with INR 17.50 SEC (9.98-11.88) H 06/01/17 11:45 INR 1.55 (0.82-1.09) H 06/01/17 11:45 Sodium 139 mmol/L (136-145) 06/02/17 11:45 Potassium 4.0 mmol/L (3.5-5.1) 06/02/17 11:45 Chloride 99 mmol/L (98-107) 06/02/17 11:45 Carbon Dioxide 28 mmol/L (21-32) 06/02/17 11:45 Anion Gap 12 (8-16) 06/02/17 11:45 BUN 31 mg/dL (7-18) H 06/02/17 11:45 Creatinine 7.7 mg/dL (0.7-1.3) H* 06/02/17 11:45 Creat Clearance w eGFR 8.26 (>60) 06/01/17 11:45 POC Glucometer 142 UNITS (80-120) 06/02/17 11:18 Random Glucose 136 mg/dL (74-106) H D 06/02/17 11:45 Calcium 7.4 mg/dL (8.5-10.1) L 06/02/17 11:45 Phosphorus 5.4 mg/dL (2.5-4.9) H 06/02/17 11:45 Magnesium 2.0 mg/dL (1.8-2.4) 06/02/17 11:45 Total Bilirubin 0.5 mg/dL (0.2-1.0) D 06/01/17 11:45 AST 17 U/L (15-37) D 06/01/17 11:45 ALT 22 U/L (12-78) 06/01/17 11:45 Alkaline Phosphatase 72 U/L (45-117) 06/01/17 11:45 Total Protein 6.5 g/dl (6.4-8.2) 06/01/17 11:45 Albumin 2.3 g/dl (3.4-5.0) L D 06/01/17 11:45 Random Vancomycin 9.973 ug/ml 06/02/17 11:45 Home Medications Medication Instructions Recorded Metoprolol Succinate [Toprol XL -] 25 mg PO DAILY 12/20/16 Aspirin [ASA -] 81 mg PO DAILY 12/23/16 Tenofovir Disoproxil Fumarate 300 mg PO MOWEFR 05/26/17 [Viread -] Piperacillin/Tazob 2.25 gm [Zosyn 2.25 gm IVPB Q8H #126 bag 05/29/17 2.25GM Ivpb (Pre-Docked)] Apixaban [Eliquis] 5 mg PO BID #60 tablet 05/30/17 Atorvastatin Ca [Lipitor] 10 mg PO HS #30 tablet 05/30/17 Lactobacillus Acidophilus [Bacid -] 1 tab PO DAILY #30 tab 05/30/17 Lisinopril [Prinivil] 2.5 mg PO DAILY #30 tablet 05/30/17 Vancomycin HCl in Dextrose 5 % 1.5 gm IV MOWEFR #18 plast..bag 05/30/17 [Vancomycin 1.5 Gram/250 ml-D5w] A/P Pt is a 61 y/o M with PMhx of ESRD (on HD MWF), HTN, HepB, DM type II ( noncompliant with meds), CAD (s/p CABG), recently diagnosed with b/l foot osteomyelitis presented to the ED after being uncomfortable with self administration of abx, wound care, and episodes of diarrhea. 1. B/l foot osteomyelitis -s/p b/l debridement and lavage on 05/29; refused amputation of R foot so D/ Jelani home on intermodal customer service abx -tunneled catheter in place for intermodal customer service antibiotic tx of vanc 1 g/zosyn 2.25 mg for 6 weeks; refused going to a SNF last visit but after failing to do independently at home, pt is agreeable to SNF; awaiting insurance approval and placement 2. Diarrhea -likely due to antibiotics; present since last visit; resolved according to pt; no loose BM in the past 24 hrs -imodium, banatol flakes PRN -C. diff neg last visit 3. ESRD -continue HD as planned (MWF) 4. DM -HbA1c 8.6 -ISS; requiring very little coverage -BGMs ACHS -started on glipizide 5 mg 5.A.fib with RVR -in NSR -rate controlled with lopressor 25 mg -eliquis 5 mg BID 6. HTN -well controlled with lisinopril 2.5 mg QD and metoprolol XL 25 mg BID 7. CAD -s/p CABG and stents -aspirin 81 mg QD 8. HepB -tenofovir 300 mg 3x/week 9. HLD -lipitor 10 mg HS 10. FEN -no IVFs -lytes wnl; continue monitoring, replete as necessary -renal diet 11. PPx -DVT: eliquis -No GI ppx Dispo: on intermodal customer service antibiotics (vanc/zosyn) via tunneled catheter; agreeable to SNF; awaiting placement Kaila Hanson, MS3
--- NOTE | 2017-06-02 15:03 | PN ---
Progress Note (short form) - Note Progress Note: Renal Follow up for ESRD on HD Pt readmitted s/p hospital discharge Pt reports that he was unable to go the dressing changes on his foot and he did not feel comfortable with taking the antibiotics at home. His last dialyssis was [facility] as a inpatient. Denies any sob, chest pain, fever, chills, Abd pain, N /V/D. No LE swelling. Vital Signs Temperature 98.7 F 06/02/17 11:40 Pulse Rate 66 06/02/17 14:45 Respiratory Rate 18 06/02/17 14:45 Blood Pressure 136/76 06/02/17 14:45 O2 Sat by Pulse Oximetry (%) 98 06/02/17 09:00 Intake & Output 05/30/17 05/31/17 06/01/17 06/02/17 23:59 23:59 23:59 23:59 Intake Total 260 350 Balance 260 350 Weight 102.058 kg NAD, awake and alert No JVD RRR, NO M/R CTA, anterior exam soft, NT/ND No LE edema b/L feet in dressing CBC, BMP 06/02/17 11:45 06/02/17 11:45 Laboratory Tests 06/02/17 11:45 Calcium 7.4 L Phosphorus 5.4 H Magnesium 2.0 Current Medications Apixaban (Eliquis -) 5 mg PO BID [facility] Last Admin: 06/01/17 21:26 Dose: 5 mg Aspirin (Asa -) 81 mg PO DAILY [facility] Last Admin: 06/02/17 10:20 Dose: 81 mg Atorvastatin Calcium (Lipitor -) 10 mg PO HS [facility] Last Admin: 06/01/17 21:26 Dose: 10 mg Glipizide (Glucotrol -) 5 mg PO DAILY@0700 [facility] Last Admin: 06/02/17 06:38 Dose: 5 mg Piperacillin Sod/Tazobactam (Sod 2.25 gm/ Dextrose) 50 mls @ 100 mls/hr IVPB Q8H-IV [facility] Last Admin: 06/02/17 10:19 Dose: 100 mls/hr Vancomycin HCl 1,500 mg/ (Dextrose) 500 mls @ 250 mls/hr IVPB MoWeFr [facility] Last Admin: 06/02/17 13:53 Dose: 250 mls/hr Insulin Aspart (Novolog Vial Sliding Scale -) 1 vial SQ ACHS [facility] PRN Reason: Protocol Last Admin: 06/02/17 11:39 Dose: Not Given Lactobacillus Acidophilus (Bacid -) 1 tab PO DAILY [facility] Last Admin: 06/02/17 10:19 Dose: 1 tab Lisinopril (Prinivil) 2.5 mg PO DAILY [facility] Last Admin: 06/01/17 13:07 Dose: 2.5 mg Loperamide HCl (Imodium -) 2 mg PO Q8H PRN PRN Reason: DIARRHEA Last Admin: 06/02/17 10:23 Dose: 2 mg Metoprolol Succinate (Toprol Xl -) 25 mg PO DAILY [facility] Last Admin: 06/01/17 13:07 Dose: 25 mg Tenofovir Disoproxil Fumarate (Viread -) 300 mg PO MOWEFR [facility] 61 year old gentleman with PMhx of ESRD on HD, CAD, HTN, Hepatitis B, IDDM non compliant, admitted with CHF in the setting of missing HD, Afib with RVR readmitted with b/l foot ulcerations. #LE ulcerations continue IV Abx and wound care to get IV Vanco today with HD will check Vanco levels with HD #ESRD on HD for dialysis today as a inpatient UF as tolerated dose all meds for intermittent HD #CKD related Anemia will give MARK with HD #Hypertension Continue lisinopril and tenofovir Thank you Jose Zavaleta DO
[2017-06-02] MEDS: TENOFOVIR DISOPROXIL FUMARATE 300 MG TABLET PO SCH (16:47)
[2017-06-02] MEDS: LISINOPRIL 5 MG TABLET (FP) PO SCH (16:47)
[2017-06-02] MEDS: METOPROLOL SUCCINATE 25 MG TAB.SR.24H (FP) PO SCH (16:47)
[2017-06-02] MEDS: APIXABAN 5 MG TABLET PO SCH ×2 (16:47→22:38)
[2017-06-02] MEDS ORDERED: INSULIN (NOVOLOG) ASPART 100 UNITS/ML 10ML VIAL ONE ×2 (17:31→21:46)
[2017-06-02] MEDS: ATORVASTATIN CA 10 MG TABLET (FP) PO SCH (22:38)
[2017-06-03] MEDS: PIPERACILLIN/TAZOB 2.25 GM 2.25 GM in DEXTROSE 5%-WATER - 50 ML IVPB SCH ×3 (01:49→18:02)
[2017-06-03] MEDS ORDERED: RANITIDINE HCL 150 MG TABLET (FP) PO ONE (02:56)
[2017-06-03] MEDS: BANATROL PLUS POWDER PACKET PO SCH ×3 (05:34→22:44)
[2017-06-03] MEDS: glipiZIDE 5 MG TABLET (FP) PO SCH (06:28)
[2017-06-03] MEDS: INSULIN SLIDING SCALE (NOVOLOG) 1 VIAL SQ SCH ×4 (06:33→22:53)
[2017-06-03 07:43] LABS: MCH 30.7 pg (25.7-33.7); MEAN CELL VOLUME 93.1 fl (80-96); MEAN PLT VOLUME 9.5 fl (7.5-11.1); PLATELET COUNT 326 K/MM3 (134-434); WHITE BLOOD COUNT 11.5 K/mm3 (4.0-10.0)
[2017-06-03 08:03] LABS: ALBUMIN 2.2 g/dl (3.4-5.0); ALK PHOS 58 U/L (45-117); ANION GAP 11 (8-16); BILIRUBIN,TOTAL 0.5 mg/dL (0.2-1.0); CALCIUM 7.5 mg/dL (8.5-10.1); CO2 30 mmol/L (21-32); CREATININE 5.1 mg/dL (0.7-1.3); GLUCOSE,RANDOM 86 mg/dL (74-106); SGOT/AST 10 U/L (15-37); SGPT/ALT 16 U/L (12-78); TOT PROT 6.2 g/dl (6.4-8.2)
--- NOTE | 2017-06-03 08:05 | PN ---
Physical Exam: SUBJECTIVE: Patient seen and examined. Slept well overnight. Complained that he had bad taste in mouth resolved with Zantac. OBJECTIVE: Vital Signs Period Temp Pulse Resp BP Sys/Palafox Pulse Ox Last 24 Hr 97.3 F-98.7 F 65-75 18-20 122-158/61-84 98 GEN: AAOx3, NAD, Lying inb ed comfortably HEENT: PERRLA, EOMi CV: S1, S2, RRR LUNG: CTABL ABD: Soft, NT, ND MSK: Dressings on bilateral feet, mild swelling. ROM intact. Active Medications Generic Name Dose Route Start Last Admin Trade Name Freq PRN Reason Stop Dose Admin Apixaban 5 mg 06/01/17 12:45 06/02/17 22:38 Eliquis - PO 5 mg BID [facility] Administration Aspirin 81 mg 06/01/17 12:45 06/02/17 10:20 Asa - PO 81 mg DAILY [facility] Administration Atorvastatin Calcium 10 mg 06/01/17 22:00 06/02/17 22:38 Lipitor - PO 10 mg HS [facility] Administration Glipizide 5 mg 06/01/17 17:15 06/03/17 06:28 Glucotrol - PO 5 mg DAILY@0700 [facility] Administration Piperacillin Sod/Tazobactam 50 mls @ 100 mls/hr 06/01/17 18:00 06/03/17 01:49 Sod 2.25 gm/ Dextrose IVPB 100 mls/hr Q8H-IV [facility] Administration Vancomycin HCl 1,500 mg/ 500 mls @ 250 mls/hr 06/02/17 10:00 06/02/17 13:53 Dextrose IVPB 250 mls/hr MoWeFr [facility] Administration Insulin Aspart 1 vial 06/01/17 13:45 06/03/17 06:33 Novolog Vial Sliding Scale - SQ Not Given ACHS [facility] Protocol Lactobacillus Acidophilus 1 tab 06/01/17 12:45 06/02/17 10:19 Bacid - PO 1 tab DAILY [facility] Administration Lisinopril 2.5 mg 06/01/17 12:45 06/02/17 16:47 Prinivil PO 2.5 mg DAILY [facility] Administration Loperamide HCl 2 mg 06/01/17 16:15 06/02/17 10:23 Imodium - PO 2 mg Q8H PRN Administration DIARRHEA Metoprolol Succinate 25 mg 06/01/17 12:45 06/02/17 16:47 Toprol Xl - PO 25 mg DAILY [facility] Administration Tenofovir Disoproxil Fumarate 300 mg 06/02/17 12:42 06/02/17 16:47 Viread - PO 300 mg MOWEFR [facility] Administration ASSESSMENT/PLAN: 61yo M with PMH ESRD, HBV on treatment, DM, CHF presented to the ER with complaints of R foot infection that was worsening. # Bilateral foot Osteomyelitis - s/p debridement on 05/30. +MSSA. Needs jail at least 6 weeks of abx since he refused amputation. Was not able to self administer antibiotics even after teaching. Now agreeable to SNF. [facility]'s sent, awaiting placement. Discussed w/ Dr Victor who would like to continue broad spectrum abx Vanc and Zosyn. # Diarrhea - Since last admission. Cdiff negative. Will repeat C. diff. Continue banatrol flakes and bacid. Hold immodium until new C. diff is negative. # ESRD on HD - cont HD per normal schedule (MWF). consult nephrology to resume HD. fluid restriction # DM- A1c 8.6. Was not taking home meds. Started low dose glipizide. COntinue Insulin sliding scale. # Hx of Afib - Sinus. On metoprolol and Eliquis 5 BID # CHF - Not in exacerbation. Continue HD, metoprolol. # Anemia of CD - Stable H/H, monitor, no transfusion needed # HBV- Continue home Tenofovir # FEN - No IVF, elec wnl, renal diet # PPx - Eliquis, no GI needed, PT ordered # Dispo - Await placement at SNF. d/w Dr Lauro Cartwright mD - PGY1 Internal Medicine Visit type - Emergency Visit Emergency Visit: No - New Patient This patient is new to me today: No - Critical Care Critical Care patient: No - Discharge Referral Referred to [facility] No
[2017-06-03] MEDS ORDERED: PT OWN MED DRAWER 7, Y5N ONE ×2 (10:05→17:59)
[2017-06-03] MEDS: LOPERAMIDE HCL 2 MG CAPSULE PO PRN (10:09)
[2017-06-03] MEDS: METOPROLOL SUCCINATE 25 MG TAB.SR.24H (FP) PO SCH (10:11)
[2017-06-03] MEDS: APIXABAN 5 MG TABLET PO SCH ×2 (10:11→22:51)
[2017-06-03] MEDS: LISINOPRIL 5 MG TABLET (FP) PO SCH (10:11)
[2017-06-03] MEDS: ASPIRIN 81 MG CHEWABLE TABLETS PO SCH (10:11)
[2017-06-03] MEDS: LACTOBACILLUS ACIDOPHILUS 1 EACH TAB (FP) PO SCH (10:11)
--- NOTE | 2017-06-03 12:01 | PN ---
Teaching Attending Note Name of Resident: Pankaj Cartwright ATTENDING PHYSICIAN STATEMENT Time of evalution: 9:20 AM I saw and evaluated the patient. I reviewed the resident's note and discussed the case with the resident. I agree with the resident's findings and plan as documented. SUBJECTIVE: Patient seen and examined, reports some diarrhea watery since on antibiotics, no recent change. No nausea, vomiting or abdominal pain or fevers noted. No other complaints. OBJECTIVE: Vital Signs Period Temp Pulse Resp BP Sys/Palafox Pulse Ox Last 24 Hr 97.8 F-98.6 F 65-75 18-20 124-158/66-84 Intake & Output 05/31/17 06/01/17 06/02/17 06/03/17 23:59 23:59 23:59 23:59 Intake Total 260 550 Balance 260 550 Weight 225 lb General: lying in bed in no acute distress CVS:S1S2 regular Chest: no rales or wheezing abdomen: soft, NT Extremities: bilateral foot dressing, surrounding area clean with no erythema or warmth, pos DP pulses Home Medication List Medication Instructions Recorded Confirmed Type Metoprolol Succinate [Toprol XL -] 25 mg PO DAILY 12/20/16 06/01/17 History Aspirin [ASA -] 81 mg PO DAILY 12/23/16 06/01/17 History Tenofovir Disoproxil Fumarate 300 mg PO MOWEFR 05/26/17 06/01/17 History [Viread -] Active Medications Generic Name Dose Route Start Last Admin Trade Name Freq PRN Reason Stop Dose Admin Apixaban 5 mg 06/01/17 12:45 06/03/17 10:11 Eliquis - PO 5 mg BID [facility] Administration Aspirin 81 mg 06/01/17 12:45 06/03/17 10:11 Asa - PO 81 mg DAILY [facility] Administration Atorvastatin Calcium 10 mg 06/01/17 22:00 06/02/17 22:38 Lipitor - PO 10 mg HS [facility] Administration Glipizide 5 mg 06/01/17 17:15 06/03/17 06:28 Glucotrol - PO 5 mg DAILY@0700 [facility] Administration Piperacillin Sod/Tazobactam 50 mls @ 100 mls/hr 06/01/17 18:00 06/03/17 10:10 Sod 2.25 gm/ Dextrose IVPB 100 mls/hr Q8H-IV [facility] Administration Vancomycin HCl 1,500 mg/ 500 mls @ 250 mls/hr 06/02/17 10:00 06/02/17 13:53 Dextrose IVPB 250 mls/hr MoWeFr [facility] Administration Insulin Aspart 1 vial 06/01/17 13:45 06/03/17 06:33 Novolog Vial Sliding Scale - SQ Not Given ACHS [facility] Protocol Lactobacillus Acidophilus 1 tab 06/01/17 12:45 06/03/17 10:11 Bacid - PO 1 tab DAILY [facility] Administration Lisinopril 2.5 mg 06/01/17 12:45 06/03/17 10:11 Prinivil PO 2.5 mg DAILY [facility] Administration Loperamide HCl 2 mg 06/01/17 16:15 06/03/17 10:09 Imodium - PO 2 mg Q8H PRN Administration DIARRHEA Metoprolol Succinate 25 mg 06/01/17 12:45 06/03/17 10:11 Toprol Xl - PO 25 mg DAILY [facility] Administration Tenofovir Disoproxil Fumarate 300 mg 06/02/17 12:42 06/02/17 16:47 Viread - PO 300 mg MOWEFR [facility] Administration ASSESSMENT AND PLAN: 61 yom with pMHx of CAD, ESRD, DM non compliant, Recently admitted with Bilateral diabetic foot osteomyelitis with ulcer/cellulitis/toe gangrene, declined amputation, d/rhiannon on Zosyn/vancomycin after debridement, readmitted as unable to manage antibiotics at home, awaiting placement. -Acute bilateral diabetic foot osteomyelitis with ulcer/cellulitis/toe gangrene s/p debridement -New onset Afib with RVR on recent admit, now in NSR -Diarrhea, suspect antibiotic induced, r/u C difficile -ESRD on HD -DM, no compliant, A1c 8.2 -Hepatitis C Plan: zosyn/vanco renal dosing, Podiatry input for wound dressings and outpatient follow up Patient declined amputation on recent admission and risks were explained. Check Stool C difficile, hold loperamide till then. Started on Glipizide, BS 70s-200s, monitor for now. TOprol XL/eliquis. Continue ASA/statin/Lisinopril. Continue tenofovir Dc to SNF when disposition arranged. Plan discussed with patient in detail, all questions answered
--- NOTE | 2017-06-03 12:42 | MSN ---
Progress Note (short form) - Note Progress Note: SUBJECTIVE: Pt seen and examined at bedside. States pain is controlled. Complained of an episode of diarrhea; denies any other loose BM in the past 24 hrs. Denies any CP , palpitations, SOB, abdominal pain, fever, chills, nausea, vomiting, constipation, or any urinary symptoms. OBJECTIVE Last Vital Signs Temp Pulse Resp BP Pulse Ox 97.8 F 71 18 126/71 98 06/03/17 10:00 06/03/17 10:00 06/03/17 10:00 06/03/17 10:00 06/02/17 09:00 GEN: AOX3, NAD CV: RRR S1 S2 No MRG LUNG: CTA b/l ABD: +bowel sounds, soft, ND, NT MSK: dressing intact on b/l feet with some swelling; sensation intact; dorsalis pedis pulse present; submetatarsal ulcer between 2nd and 3rd phalanx in L feet looked dry and healing well; slight serosanguinous drainage noted on gauze Laboratory Last Values WBC 11.5 K/mm3 (4.0-10.0) H 06/03/17 07:21 RBC 3.28 M/mm3 (4.00-5.60) L 06/03/17 07:21 Hgb 10.1 GM/dL (11.7-16.9) L 06/03/17 07:21 Hct 30.6 % (35.4-49) L 06/03/17 07:21 MCV 93.1 fl (80-96) 06/03/17 07:21 MCH 30.7 pg (25.7-33.7) 06/03/17 07:21 MCHC 33.0 g/dl (32.0-35.9) 06/03/17 07:21 RDW 14.0 % (11.9-15.9) 06/03/17 07:21 Plt Count 326 K/MM3 (134-434) 06/03/17 07:21 MPV 9.5 fl (7.5-11.1) 06/03/17 07:21 Neutrophils % 81.6 % (42.8-82.8) 06/01/17 11:45 Lymphocytes % 9.8 % (8-40) 06/01/17 11:45 Monocytes % 6.0 % (3.8-10.2) 06/01/17 11:45 Eosinophils % 1.4 % (0-4.5) 06/01/17 11:45 Basophils % 1.2 % (0-2.0) 06/01/17 11:45 PT with INR 17.50 SEC (9.98-11.88) H 06/01/17 11:45 INR 1.55 (0.82-1.09) H 06/01/17 11:45 Sodium 142 mmol/L (136-145) 06/03/17 07:21 Potassium 3.8 mmol/L (3.5-5.1) 06/03/17 07:21 Chloride 101 mmol/L (98-107) 06/03/17 07:21 Carbon Dioxide 30 mmol/L (21-32) 06/03/17 07:21 Anion Gap 11 (8-16) 06/03/17 07:21 BUN 18 mg/dL (7-18) D 06/03/17 07:21 Creatinine 5.1 mg/dL (0.7-1.3) H D 06/03/17 07:21 Creat Clearance w eGFR 11.51 (>60) 06/03/17 07:21 POC Glucometer 93 UNITS (80-120) 06/03/17 05:38 Random Glucose 86 mg/dL (74-106) D 06/03/17 07:21 Calcium 7.5 mg/dL (8.5-10.1) L 06/03/17 07:21 Phosphorus 5.4 mg/dL (2.5-4.9) H 06/02/17 11:45 Magnesium 2.0 mg/dL (1.8-2.4) 06/02/17 11:45 Total Bilirubin 0.5 mg/dL (0.2-1.0) 06/03/17 07:21 AST 10 U/L (15-37) L D 06/03/17 07:21 ALT 16 U/L (12-78) D 06/03/17 07:21 Alkaline Phosphatase 58 U/L (45-117) 06/03/17 07:21 Total Protein 6.2 g/dl (6.4-8.2) L 06/03/17 07:21 Albumin 2.2 g/dl (3.4-5.0) L 06/03/17 07:21 Random Vancomycin 9.973 ug/ml 06/02/17 11:45 Home Medications Medication Instructions Recorded Metoprolol Succinate [Toprol XL -] 25 mg PO DAILY 12/20/16 Aspirin [ASA -] 81 mg PO DAILY 12/23/16 Tenofovir Disoproxil Fumarate 300 mg PO MOWEFR 05/26/17 [Viread -] Piperacillin/Tazob 2.25 gm [Zosyn 2.25 gm IVPB Q8H #126 bag 05/29/17 2.25GM Ivpb (Pre-Docked)] Apixaban [Eliquis] 5 mg PO BID #60 tablet 05/30/17 Atorvastatin Ca [Lipitor] 10 mg PO HS #30 tablet 05/30/17 Lactobacillus Acidophilus [Bacid -] 1 tab PO DAILY #30 tab 05/30/17 Lisinopril [Prinivil] 2.5 mg PO DAILY #30 tablet 05/30/17 Vancomycin HCl in Dextrose 5 % 1.5 gm IV MOWEFR #18 plast..bag 05/30/17 [Vancomycin 1.5 Gram/250 ml-D5w] A/P Pt is a 61 y/o M with PMhx of ESRD (on HD MWF), HTN, HepB, DM type II ( noncompliant with meds), CAD (s/p CABG), recently diagnosed with b/l foot osteomyelitis presented to the ED after being uncomfortable with self administration of abx, wound care, and episodes of diarrhea. 1. B/l foot osteomyelitis -s/p b/l debridement and lavage on 05/29; refused amputation of R foot so D/ Jelani home on fci abx -tunneled catheter in place for terminal manager antibiotic tx for 6 weeks; refused going to a SNF last visit but after failing to do independently at home, pt is agreeable to SNF; awaiting insurance approval and placement -wound vac and dressing supplies will be forwarded to the SNF -continue vanc 1 g/zosyn 2.25 mg 2. Diarrhea -likely due to antibiotics; present since last visit; an episode this AM -imodium, banatol flakes PRN -pending results of C. diff stool culture; C. diff neg last visit 3. ESRD -continue HD as planned (MWF) 4. DM -HbA1c 8.6 -ISS; requiring very little coverage -BGMs ACHS -started on glipizide 5 mg 5.A.fib with RVR -in NSR -rate controlled with lopressor 25 mg -eliquis 5 mg BID 6. HTN -well controlled with lisinopril 2.5 mg QD and metoprolol XL 25 mg BID 7. CAD -s/p CABG and stents -aspirin 81 mg QD 8. HepB -tenofovir 300 mg 3x/week 9. HLD -lipitor 10 mg HS 10. FEN -no IVFs -lytes wnl; continue monitoring, replete as necessary -renal diet 11. PPx -DVT: eliquis -No GI ppx Dispo: on fci antibiotics (vanc/zosyn) via tunneled catheter; agreeable to SNF; awaiting placement Kaila Hanson, MS3
--- NOTE | 2017-06-03 14:32 | PN ---
Progress Note, Physician History of Present Illness: Pt is afebrile, without distress. States he has loose BMs but no abdominal discomfort. CDT (-) prior to recent discharge. No other specific complaints. - Current Medication List Current Medications: Active Medications Apixaban (Eliquis -) 5 mg PO BID [facility] Last Admin: 06/03/17 10:11 Dose: 5 mg Aspirin (Asa -) 81 mg PO DAILY [facility] Last Admin: 06/03/17 10:11 Dose: 81 mg Atorvastatin Calcium (Lipitor -) 10 mg PO HS [facility] Last Admin: 06/02/17 22:38 Dose: 10 mg Glipizide (Glucotrol -) 5 mg PO DAILY@0700 [facility] Last Admin: 06/03/17 06:28 Dose: 5 mg Piperacillin Sod/Tazobactam (Sod 2.25 gm/ Dextrose) 50 mls @ 100 mls/hr IVPB Q8H-IV [facility] Last Admin: 06/03/17 10:10 Dose: 100 mls/hr Vancomycin HCl 1,500 mg/ (Dextrose) 500 mls @ 250 mls/hr IVPB MoWeFr [facility] Last Admin: 06/02/17 13:53 Dose: 250 mls/hr Insulin Aspart (Novolog Vial Sliding Scale -) 1 vial SQ ACHS [facility] PRN Reason: Protocol Last Admin: 06/03/17 12:46 Dose: Not Given Lactobacillus Acidophilus (Bacid -) 1 tab PO DAILY [facility] Last Admin: 06/03/17 10:11 Dose: 1 tab Lisinopril (Prinivil) 2.5 mg PO DAILY [facility] Last Admin: 06/03/17 10:11 Dose: 2.5 mg Metoprolol Succinate (Toprol Xl -) 25 mg PO DAILY [facility] Last Admin: 06/03/17 10:11 Dose: 25 mg Tenofovir Disoproxil Fumarate (Viread -) 300 mg PO MOWEFR [facility] Last Admin: 06/02/17 16:47 Dose: 300 mg - Objective Vital Signs: Vital Signs Temperature 97.8 F 06/03/17 10:00 Pulse Rate 71 06/03/17 10:00 Respiratory Rate 18 06/03/17 10:00 Blood Pressure 126/71 06/03/17 10:00 O2 Sat by Pulse Oximetry (%) 98 06/02/17 09:00 Constitutional: Yes: No Distress Neck: Yes: Supple Cardiovascular: Yes: Regular Rate and Rhythm Respiratory: Yes: Regular Gastrointestinal: Yes: Normal Bowel Sounds, Soft Extremities: Yes: Cyanosis (Rt foot 3,4,5th toe with darkened discoloration, dorsal wound clean) Wound/Incision: Yes: Other (Rt dorsal I+D site without purulence Lt plantar ulcer without discharge) Labs: CBC, BMP 06/03/17 07:21 06/03/17 07:21 INR, PTT INR 1.55 (0.82-1.09) H 06/01/17 11:45 Problem List - Problems (1) ESRD (end stage renal disease) on dialysis Code(s): N18.6 - END STAGE RENAL DISEASE; Z99.2 - DEPENDENCE ON RENAL DIALYSIS (2) Osteomyelitis of left foot Code(s): M86.9 - OSTEOMYELITIS, UNSPECIFIED Qualifiers: Osteomyelitis type: unspecified type Qualified Code(s): M86.9 - Osteomyelitis, unspecified (3) Osteomyelitis of right foot Code(s): M86.9 - OSTEOMYELITIS, UNSPECIFIED Qualifiers: Osteomyelitis type: unspecified type Qualified Code(s): M86.9 - Osteomyelitis, unspecified (4) Atrial fibrillation Code(s): I48.91 - UNSPECIFIED ATRIAL FIBRILLATION Qualifiers: Atrial fibrillation type: unspecified Qualified Code(s): I48.91 - Unspecified atrial fibrillation (5) Diabetes Code(s): E11.9 - TYPE 2 DIABETES MELLITUS WITHOUT COMPLICATIONS (6) New onset a-fib Code(s): I48.91 - UNSPECIFIED ATRIAL FIBRILLATION (7) Peripheral arterial disease Code(s): I73.9 - PERIPHERAL VASCULAR DISEASE, UNSPECIFIED Assessment/Plan s/p Sepsis b/l foot OM Rt foot ischemia ESRD on HD DM -- pt adamantly refuses amputation -- Rt foot MSSA infection -- Lt foot with +MRSA and E. faecalis infected ulcer (earlier this year) -- recommend continue current antibiotics -- stool CDT to be repeated -- above d/w Dr. Berg , agrees with plan
--- NOTE | 2017-06-03 15:01 | PN ---
Progress Note (short form) - Note Progress Note: Renal Follow up for ESRD on HD Pt seen and examined at the bedside awake and alert no acute complaints s/p dialysis yesterday Vital Signs Temperature 98.6 F 06/03/17 14:34 Pulse Rate 78 06/03/17 14:34 Respiratory Rate 16 06/03/17 14:34 Blood Pressure 132/76 06/03/17 14:34 O2 Sat by Pulse Oximetry (%) 95 06/03/17 09:00 Intake & Output 05/31/17 06/01/17 06/02/17 06/03/17 23:59 23:59 23:59 23:59 Intake Total 260 550 50 Balance 260 550 50 Weight 102.058 kg NAD, awake and alert No JVD RRR, NO M/R CTA, anterior exam soft, NT/ND No LE edema b/L feet in dressing CBC, BMP 06/03/17 07:21 06/03/17 07:21 Current Medications Apixaban (Eliquis -) 5 mg PO BID [facility] Last Admin: 06/03/17 10:11 Dose: 5 mg Aspirin (Asa -) 81 mg PO DAILY [facility] Last Admin: 06/03/17 10:11 Dose: 81 mg Atorvastatin Calcium (Lipitor -) 10 mg PO HS [facility] Last Admin: 06/02/17 22:38 Dose: 10 mg Glipizide (Glucotrol -) 5 mg PO DAILY@0700 [facility] Last Admin: 06/03/17 06:28 Dose: 5 mg Piperacillin Sod/Tazobactam (Sod 2.25 gm/ Dextrose) 50 mls @ 100 mls/hr IVPB Q8H-IV [facility] Last Admin: 06/03/17 10:10 Dose: 100 mls/hr Vancomycin HCl 1,500 mg/ (Dextrose) 500 mls @ 250 mls/hr IVPB MoWeFr [facility] Last Admin: 06/02/17 13:53 Dose: 250 mls/hr Insulin Aspart (Novolog Vial Sliding Scale -) 1 vial SQ ACHS [facility] PRN Reason: Protocol Last Admin: 06/03/17 12:46 Dose: Not Given Lactobacillus Acidophilus (Bacid -) 1 tab PO DAILY [facility] Last Admin: 06/03/17 10:11 Dose: 1 tab Lisinopril (Prinivil) 2.5 mg PO DAILY [facility] Last Admin: 06/03/17 10:11 Dose: 2.5 mg Metoprolol Succinate (Toprol Xl -) 25 mg PO DAILY [facility] Last Admin: 06/03/17 10:11 Dose: 25 mg Tenofovir Disoproxil Fumarate (Viread -) 300 mg PO MOWEFR [facility] Last Admin: 06/02/17 16:47 Dose: 300 mg 61 year old gentleman with PMhx of ESRD on HD, CAD, HTN, Hepatitis B, IDDM non compliant, admitted with CHF in the setting of missing HD, Afib with RVR readmitted with b/l foot ulcerations. 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
--- NOTE | 2017-06-03 15:57 | CONSULT ---
Consult - text type - Consultation Consultation Note: Podiatry: Seen/evaluated at bedside, NAD. Pain controlled, denies F/V/N/C/SOB/CP. Sugars still poorly controlled. Patient is s/p R foot debridement/lavage and L foot debridement of ulcer in OR. Patient was discharged home on Friday and subsequently needed admission because he did not have any help at home. I had strongly recommended 3rd/4th toe amputation as they are now necrotic due to infection, however patient adamantly refused. He is now readmitted for SNF placement. SITA: R foot: large post-surgical wound dorsal lateral midfoot with mostly fibrotic base, small area of granulation tissue, no purulence, no fluctuance, no soft tissue crepitus. 3rd toe is necrotic, gangrenous. 4th toe is ischemic and necrotic along the dorsal IPJ. There is minimal periwound erythema, no ascending cellulitis. Minimal tenderness to palpation of surgical site. L foot: sub-2nd metatarsal diabetic ulcer with mixed fibrogranular base, hyperkeratotic borders, probes deep to bone, no purulence, no fluctuance, no periwound erythema, no ascending cellulitis, no signs of active infection. WBC: 11.5 OR Cx: MSSA Imp: 61 year old IDDM M s/p R foot debridement/lavage, L foot debridement of ulcer, gangrenous changes 3rd/4th toes 1. C/w IV abx per Infectious Disease 2. Again discussed treatment options with patient, namely 3rd/4th toe amputation and patient is refusing amputation at this time 3. For Rehab placement. Patient needs wound vac with medium black granufoam applied to R foot post-surgical ulcer, set at 125 mmHg continuous, changed 3x/ week. He also needs bactroban to L foot diabetic ulcer changed 3x/week. 4. Upon discharge, will f/u with me in [facility] wound healing center. Given the fact that the patient is refusing amputation, no further surgical intervention. Rosaura Sheth DPM
[2017-06-03] MEDS: ATORVASTATIN CA 10 MG TABLET (FP) PO SCH (22:51)
[2017-06-04] MEDS: PIPERACILLIN/TAZOB 2.25 GM 2.25 GM in DEXTROSE 5%-WATER - 50 ML IVPB SCH ×3 (03:55→17:22)
[2017-06-04] MEDS: BANATROL PLUS POWDER PACKET PO SCH ×3 (06:20→22:01)
[2017-06-04] MEDS: glipiZIDE 5 MG TABLET (FP) PO SCH (07:03)
[2017-06-04] MEDS: INSULIN SLIDING SCALE (NOVOLOG) 1 VIAL SQ SCH ×3 (07:09→17:23)
[2017-06-04 07:43] LABS: MCH 30.6 pg (25.7-33.7); MCHC 32.6 g/dl (32.0-35.9); MEAN CELL VOLUME 93.7 fl (80-96); MEAN PLT VOLUME 9.3 fl (7.5-11.1); PLATELET COUNT 340 K/MM3 (134-434); RDW 14.4 % (11.9-15.9); WHITE BLOOD COUNT 10.3 K/mm3 (4.0-10.0)
--- NOTE | 2017-06-04 07:44 | PN ---
Physical Exam: SUBJECTIVE: Patient seen and examined. Asymptomatic. SLept well. No bowel movements. No fevers, chills, CP, SOB. Dialysis today OBJECTIVE: Vital Signs Period Temp Pulse Resp BP Sys/Palafox Pulse Ox Last 24 Hr 97.8 F-98.8 F 63-78 16-20 104-132/58-76 95 GEN: AAOx3, NAD, Lying inb ed comfortably HEENT: PERRLA, EOMi CV: S1, S2, RRR LUNG: CTABL ABD: Soft, NT, ND MSK: Dressings on bilateral feet, mild swelling. ROM intact. Active Medications Generic Name Dose Route Start Last Admin Trade Name Freq PRN Reason Stop Dose Admin Apixaban 5 mg 06/01/17 12:45 06/03/17 22:51 Eliquis - PO 5 mg BID LORRI Administration Aspirin 81 mg 06/01/17 12:45 06/03/17 10:11 Asa - PO 81 mg DAILY LORRI Administration Atorvastatin Calcium 10 mg 06/01/17 22:00 06/03/17 22:51 Lipitor - PO 10 mg HS LORRI Administration Glipizide 5 mg 06/01/17 17:15 06/04/17 07:03 Glucotrol - PO 5 mg DAILY@0700 LORRI Administration Piperacillin Sod/Tazobactam 50 mls @ 100 mls/hr 06/01/17 18:00 06/04/17 03:55 Sod 2.25 gm/ Dextrose IVPB 100 mls/hr Q8H-IV LORRI Administration Vancomycin HCl 1,500 mg/ 500 mls @ 250 mls/hr 06/02/17 10:00 06/02/17 13:53 Dextrose IVPB 250 mls/hr MoWeFr LORRI Administration Insulin Aspart 1 vial 06/01/17 13:45 06/04/17 07:09 Novolog Vial Sliding Scale - SQ Not Given ACHS LORRI Protocol Lactobacillus Acidophilus 1 tab 06/01/17 12:45 06/03/17 10:11 Bacid - PO 1 tab DAILY LORRI Administration Lisinopril 2.5 mg 06/01/17 12:45 06/03/17 10:11 Prinivil PO 2.5 mg DAILY LORRI Administration Metoprolol Succinate 25 mg 06/01/17 12:45 06/03/17 10:11 Toprol Xl - PO 25 mg DAILY LORRI Administration Tenofovir Disoproxil Fumarate 300 mg 06/02/17 12:42 06/02/17 16:47 Viread - PO 300 mg MOWEFR LORRI Administration ASSESSMENT/PLAN: 61yo M with PMH ESRD, HBV on treatment, DM, CHF presented to the ER with complaints of R foot infection that was worsening. # Bilateral foot Osteomyelitis - s/p debridement on 05/30. +MSSA. Needs halfway at least 6 weeks of abx since he refuses amputation. Was not able to self administer antibiotics even after teaching at home. Now agreeable to SNF. [facility] sent, awaiting placement. Continue broad spectrum abx Zosyn 2.25 TID and Vanc during dialysis. # Diarrhea - Cdiff negative. Continue banatrol flakes and bacid. Pt has intermittent diarrhea, will collect new Cdiff sample, hold immodium till then, though unlikely Cdiff. # ESRD on HD - Continue MWF # DM- A1c 8.6. Decreased Glipizide 5mg to 2.5mg, Continue ISS # Hx of Afib - Sinus. Toprol XL 25 Eliquis 5 BID # CHF - Not in exacerbation. Continue HD, metoprolol. # Anemia of CD - Stable H/H, monitor, no transfusion needed # HBV- Continue home Tenofovir # FEN - No IVF, elec wnl, renal diet # PPx - Eliquis, no GI needed, PT ordered # Dispo - Continue awaiting SNF placement. d/w Dr Otis Cartwright mD - PGY1 Internal Medicine Visit type - Emergency Visit Emergency Visit: No - New Patient This patient is new to me today: No - Critical Care Critical Care patient: No - Discharge Referral Referred to [facility] Med P.C.: No
[2017-06-04 08:07] LABS: ANION GAP 10 (8-16); BILIRUBIN,TOTAL 0.6 mg/dL (0.2-1.0); CO2 28 mmol/L (21-32); CREATININE 6.3 mg/dL (0.7-1.3); GLUCOSE,RANDOM 66 mg/dL (74-106); SGOT/AST 9 U/L (15-37); SGPT/ALT 15 U/L (12-78); TOT PROT 6.1 g/dl (6.4-8.2)
[2017-06-04 08:23] LABS: ALK PHOS 56 U/L (45-117)
[2017-06-04] MEDS ORDERED: VANCOMYCIN 750 MG in DEXTROSE 5%-WATER - 250 ML IVPB ONE (08:45)
[2017-06-04] MEDS ORDERED: EPOETIN ALFA 10,000 UNIT/1 ML VIAL IVPUSH ONE (09:00)
[2017-06-04] MEDS: APIXABAN 5 MG TABLET PO SCH ×3 (10:21→23:44)
[2017-06-04] MEDS: LACTOBACILLUS ACIDOPHILUS 1 EACH TAB (FP) PO SCH ×2 (10:21→12:17)
[2017-06-04] MEDS: ASPIRIN 81 MG CHEWABLE TABLETS PO SCH (10:21)
[2017-06-04] MEDS: LISINOPRIL 5 MG TABLET (FP) PO SCH (10:21)
[2017-06-04] MEDS: METOPROLOL SUCCINATE 25 MG TAB.SR.24H (FP) PO SCH ×2 (10:21→12:18)
[2017-06-04] MEDS ORDERED: PT OWN MED DRAWER 7, Y5N ONE ×2 (12:12→17:00)
[2017-06-04] MEDS: TENOFOVIR DISOPROXIL FUMARATE 300 MG TABLET PO SCH (12:18)
--- NOTE | 2017-06-04 12:59 | PN ---
Progress Note (short form) - Note Progress Note: Renal Follow up for ESRD on HD Pt seen and examined at the bedside awake and alert s/p dialysis this am with 2.5kg UF got Vanco 750mg, level was 15.8 Vital Signs Temperature 97.6 F 06/04/17 07:30 Pulse Rate 81 06/04/17 11:21 Respiratory Rate 18 06/04/17 11:21 Blood Pressure 160/94 06/04/17 11:21 O2 Sat by Pulse Oximetry (%) 95 06/03/17 21:00 Intake & Output 06/01/17 06/02/17 06/03/17 06/04/17 23:59 23:59 23:59 23:59 Intake Total 260 550 50 50 Balance 260 550 50 50 Weight 102.058 kg NAD, awake and alert No JVD RRR, NO M/R CTA, anterior exam soft, NT/ND No LE edema b/L feet in dressing CBC, BMP 06/04/17 05:35 06/04/17 05:35 Current Medications Apixaban (Eliquis -) 5 mg PO BID [facility] Last Admin: 06/04/17 12:18 Dose: 5 mg Aspirin (Asa -) 81 mg PO DAILY [facility] Last Admin: 06/04/17 10:21 Dose: Not Given Atorvastatin Calcium (Lipitor -) 10 mg PO HS [facility] Last Admin: 06/03/17 22:51 Dose: 10 mg Glipizide (Glucotrol -) 5 mg PO DAILY@0700 [facility] Last Admin: 06/04/17 07:03 Dose: 5 mg Piperacillin Sod/Tazobactam (Sod 2.25 gm/ Dextrose) 50 mls @ 100 mls/hr IVPB Q8H-IV [facility] Last Admin: 06/04/17 10:22 Dose: Not Given Vancomycin HCl 1,500 mg/ (Dextrose) 500 mls @ 250 mls/hr IVPB MoWeFr [facility] Last Admin: 06/02/17 13:53 Dose: 250 mls/hr Insulin Aspart (Novolog Vial Sliding Scale -) 1 vial SQ ACHS LORRI PRN Reason: Protocol Last Admin: 06/04/17 12:28 Dose: Not Given Lactobacillus Acidophilus (Bacid -) 1 tab PO DAILY [facility] Last Admin: 06/04/17 12:17 Dose: 1 tab Lisinopril (Prinivil) 2.5 mg PO DAILY [facility] Last Admin: 06/04/17 10:21 Dose: Not Given Metoprolol Succinate (Toprol Xl -) 25 mg PO DAILY [facility] Last Admin: 06/04/17 12:18 Dose: 25 mg Tenofovir Disoproxil Fumarate (Viread -) 300 mg PO MOWEFR [facility] Last Admin: 06/04/17 12:18 Dose: 300 mg 61 year old gentleman with PMhx of ESRD on HD, CAD, HTN, Hepatitis B, IDDM non compliant, admitted with CHF in the setting of missing HD, Afib with RVR readmitted with b/l foot ulcerations. #LE ulcerations Continue Vanco and Zosyn as per ID got Vanco 750mg today with HD as level was > 15 #ESRD on HD tolerated HD well today 2.5kg UF #CKD related Anemia will give MARK with HD #Hypertension Continue lisinopril discharge planning Thank you Jose Zavaleta DO
--- NOTE | 2017-06-04 13:24 | PN ---
Teaching Attending Note Name of Resident: Pankaj Cartwright ATTENDING PHYSICIAN STATEMENT Time of evaluation: 10: 30 AM I saw and evaluated the patient. I reviewed the resident's note and discussed the case with the resident. I agree with the resident's findings and plan as documented. SUBJECTIVE: Patient seen and examined. in HD currently, no complaints, wanting to rest. Diarrhea resolved. OBJECTIVE: Vital Signs Period Temp Pulse Resp BP Sys/Palafox Pulse Ox Last 24 Hr 97.6 F-98.8 F 63-81 16-20 104-167/58-95 95 Intake & Output 06/01/17 06/02/17 06/03/17 06/04/17 23:59 23:59 23:59 23:59 Intake Total 260 550 50 50 Balance 260 550 50 50 Weight 225 lb General: sleeping comfortably CVS: S1S2 regular Abdomen: Soft, NT Extremities: bilateral feet dressing Home Medication List Medication Instructions Recorded Confirmed Type Metoprolol Succinate [Toprol XL -] 25 mg PO DAILY 12/20/16 06/01/17 History Aspirin [ASA -] 81 mg PO DAILY 12/23/16 06/01/17 History Tenofovir Disoproxil Fumarate 300 mg PO MOWEFR 05/26/17 06/01/17 History [Viread -] Active Medications Generic Name Dose Route Start Last Admin Trade Name Freq PRN Reason Stop Dose Admin Apixaban 5 mg 06/01/17 12:45 06/04/17 12:18 Eliquis - PO 5 mg BID LORRI Administration Aspirin 81 mg 06/01/17 12:45 06/04/17 10:21 Asa - PO Not Given DAILY LORRI Atorvastatin Calcium 10 mg 06/01/17 22:00 06/03/17 22:51 Lipitor - PO 10 mg HS LORRI Administration Glipizide 5 mg 06/01/17 17:15 06/04/17 07:03 Glucotrol - PO 5 mg DAILY@0700 LORRI Administration Piperacillin Sod/Tazobactam 50 mls @ 100 mls/hr 06/01/17 18:00 06/04/17 10:22 Sod 2.25 gm/ Dextrose IVPB Not Given Q8H-IV LORRI Vancomycin HCl 1,500 mg/ 500 mls @ 250 mls/hr 06/02/17 10:00 06/02/17 13:53 Dextrose IVPB 250 mls/hr MoWeFr LORRI Administration Insulin Aspart 1 vial 06/01/17 13:45 06/04/17 12:28 Novolog Vial Sliding Scale - SQ Not Given ACHS [facility] Protocol Lactobacillus Acidophilus 1 tab 06/01/17 12:45 06/04/17 12:17 Bacid - PO 1 tab DAILY LORRI Administration Lisinopril 2.5 mg 06/01/17 12:45 06/04/17 10:21 Prinivil PO Not Given DAILY LORRI Metoprolol Succinate 25 mg 06/01/17 12:45 06/04/17 12:18 Toprol Xl - PO 25 mg DAILY LORRI Administration Sevelamer Carbonate 800 mg 06/04/17 17:30 Renvela - PO TIDCM LORRI Tenofovir Disoproxil Fumarate 300 mg 06/02/17 12:42 06/04/17 12:18 Viread - PO 300 mg MOWEFR LORRI Administration Laboratory Results - last 24 hr 06/03/17 06/03/17 06/04/17 18:03 22:52 05:35 WBC RBC Hgb Hct MCV MCH MCHC RDW Plt Count MPV Sodium Potassium Chloride Carbon Dioxide Anion Gap BUN Creatinine Creat Clearance w eGFR POC Glucometer 130 154 Random Glucose Calcium Total Bilirubin AST ALT Alkaline Phosphatase Total Protein Albumin Vancomycin Pre-Dose 15.859 H* D 06/04/17 06/04/17 06/04/17 05:35 05:35 07:06 WBC 10.3 H RBC 3.43 L Hgb 10.5 L Hct 32.1 L MCV 93.7 MCH 30.6 MCHC 32.6 RDW 14.4 Plt Count 340 MPV 9.3 Sodium 139 Potassium 3.6 Chloride 101 Carbon Dioxide 28 Anion Gap 10 BUN 24 H D Creatinine 6.3 H D Creat Clearance w eGFR 9.02 POC Glucometer 75 Random Glucose 66 L D Calcium 7.0 L Total Bilirubin 0.6 AST 9 L ALT 15 Alkaline Phosphatase 56 Total Protein 6.1 L Albumin 2.0 L Vancomycin Pre-Dose 06/04/17 12:14 WBC RBC Hgb Hct MCV MCH MCHC RDW Plt Count MPV Sodium Potassium Chloride Carbon Dioxide Anion Gap BUN Creatinine Creat Clearance w eGFR POC Glucometer 106 Random Glucose Calcium Total Bilirubin AST ALT Alkaline Phosphatase Total Protein Albumin Vancomycin Pre-Dose ASSESSMENT AND PLAN: 61 yom with pMHx of CAD, ESRD, DM non compliant, Recently admitted with Bilateral diabetic foot osteomyelitis with ulcer/cellulitis/toe gangrene, declined amputation, d/rhiannon on Zosyn/vancomycin after debridement, readmitted as unable to manage antibiotics at home, awaiting placement. -Acute bilateral diabetic foot osteomyelitis with ulcer/cellulitis/toe gangrene s/p debridement -New onset Afib with RVR on recent admit, now in NSR -Diarrhea, suspect antibiotic induced, r/u C difficile -ESRD on HD -DM, no compliant, A1c 8.2 -Hepatitis C Plan: zosyn/vanco renal dosing, Podiatry input for wound dressings and outpatient follow up Patient declined amputation on recent admission and risks were explained. Diarrhea resolved, Stool C difficile if recurrent. AM BS 66, overall 70s-150s, decrease glipizide to 2.5 mg daily TOprol XL/eliquis. Continue ASA/statin/Lisinopril. Continue tenofovir Dc to SNF when disposition arranged. Plan discussed with patient in detail, all questions answered
--- NOTE | 2017-06-04 14:00 | MSN ---
Progress Note (short form) - Note Progress Note: SUBJECTIVE: Pt was down in the HD center. Unable to speak to the pt. Per RN, pt did not have any more loose BMs. Was asymptomatic. OBJECTIVE Last Vital Signs Temp Pulse Resp BP Pulse Ox 97.6 F 81 18 160/94 95 06/04/17 07:30 06/04/17 11:21 06/04/17 11:21 06/04/17 11:21 06/03/17 21:00 Unable to perform the PE as pt was in the HD center Laboratory Last Values WBC 10.3 K/mm3 (4.0-10.0) H 06/04/17 05:35 RBC 3.43 M/mm3 (4.00-5.60) L 06/04/17 05:35 Hgb 10.5 GM/dL (11.7-16.9) L 06/04/17 05:35 Hct 32.1 % (35.4-49) L 06/04/17 05:35 MCV 93.7 fl (80-96) 06/04/17 05:35 MCH 30.6 pg (25.7-33.7) 06/04/17 05:35 MCHC 32.6 g/dl (32.0-35.9) 06/04/17 05:35 RDW 14.4 % (11.9-15.9) 06/04/17 05:35 Plt Count 340 K/MM3 (134-434) 06/04/17 05:35 MPV 9.3 fl (7.5-11.1) 06/04/17 05:35 Neutrophils % 81.6 % (42.8-82.8) 06/01/17 11:45 Lymphocytes % 9.8 % (8-40) 06/01/17 11:45 Monocytes % 6.0 % (3.8-10.2) 06/01/17 11:45 Eosinophils % 1.4 % (0-4.5) 06/01/17 11:45 Basophils % 1.2 % (0-2.0) 06/01/17 11:45 PT with INR 17.50 SEC (9.98-11.88) H 06/01/17 11:45 INR 1.55 (0.82-1.09) H 06/01/17 11:45 Sodium 139 mmol/L (136-145) 06/04/17 05:35 Potassium 3.6 mmol/L (3.5-5.1) 06/04/17 05:35 Chloride 101 mmol/L (98-107) 06/04/17 05:35 Carbon Dioxide 28 mmol/L (21-32) 06/04/17 05:35 Anion Gap 10 (8-16) 06/04/17 05:35 BUN 24 mg/dL (7-18) H D 06/04/17 05:35 Creatinine 6.3 mg/dL (0.7-1.3) H D 06/04/17 05:35 Creat Clearance w eGFR 9.02 (>60) 06/04/17 05:35 POC Glucometer 106 UNITS (80-120) 06/04/17 12:14 Random Glucose 66 mg/dL (74-106) L D 06/04/17 05:35 Calcium 7.0 mg/dL (8.5-10.1) L 06/04/17 05:35 Phosphorus 5.4 mg/dL (2.5-4.9) H 06/02/17 11:45 Magnesium 2.0 mg/dL (1.8-2.4) 06/02/17 11:45 Total Bilirubin 0.6 mg/dL (0.2-1.0) 06/04/17 05:35 AST 9 U/L (15-37) L 06/04/17 05:35 ALT 15 U/L (12-78) 06/04/17 05:35 Alkaline Phosphatase 56 U/L (45-117) 06/04/17 05:35 Total Protein 6.1 g/dl (6.4-8.2) L 06/04/17 05:35 Albumin 2.0 g/dl (3.4-5.0) L 06/04/17 05:35 Random Vancomycin 9.973 ug/ml 06/02/17 11:45 Vancomycin Pre-Dose 15.859 ug/ml (5.0-10.0) H* D 06/04/17 05:35 Home Medications Medication Instructions Recorded Metoprolol Succinate [Toprol XL -] 25 mg PO DAILY 12/20/16 Aspirin [ASA -] 81 mg PO DAILY 12/23/16 Tenofovir Disoproxil Fumarate 300 mg PO MOWEFR 05/26/17 [Viread -] Piperacillin/Tazob 2.25 gm [Zosyn 2.25 gm IVPB Q8H #126 bag 05/29/17 2.25GM Ivpb (Pre-Docked)] Apixaban [Eliquis] 5 mg PO BID #60 tablet 05/30/17 Atorvastatin Ca [Lipitor] 10 mg PO HS #30 tablet 05/30/17 Lactobacillus Acidophilus [Bacid -] 1 tab PO DAILY #30 tab 05/30/17 Lisinopril [Prinivil] 2.5 mg PO DAILY #30 tablet 05/30/17 Vancomycin HCl in Dextrose 5 % 1.5 gm IV MOWEFR #18 plast..bag 05/30/17 [Vancomycin 1.5 Gram/250 ml-D5w] A/P Pt is a 61 y/o M with PMhx of ESRD (on HD MWF), HTN, HepB, DM type II ( noncompliant with meds), CAD (s/p CABG), recently diagnosed with b/l foot osteomyelitis presented to the ED after being uncomfortable with self administration of abx, wound care, and episodes of diarrhea. 1. 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 Diarrhea -likely due to antibiotics; resolved -imodium, banatol flakes PRN -C. diff stool culture if diarrhea recurs; C. diff neg last visit 3. ESRD -continue HD as planned (MWF) 4. DM -HbA1c 8.6 -ISS; BGMs ACHS -glipizide decreased from 5mg to 2.5 mg because sugars have been well controlled 5.A.fib with RVR -in NSR -rate controlled with lopressor 25 mg -eliquis 5 mg BID 6. HTN -well controlled with lisinopril 2.5 mg QD and metoprolol XL 25 mg BID 7. CAD -s/p CABG and stents -aspirin 81 mg QD 8. HepB -tenofovir 300 mg 3x/week 9. HLD -lipitor 10 mg HS 10. FEN -no IVFs -lytes wnl; continue monitoring, replete as necessary -renal diet 11. PPx -DVT: eliquis -No GI ppx Dispo: on termite exterminator antibiotics (vanc/zosyn) via tunneled catheter; agreeable to SNF; awaiting placement Kaila Hanson, MS3
--- NOTE | 2017-06-04 14:20 | PN ---
Progress Note, Physician History of Present Illness: Pt states he feels "ok". Is afebrile, denies chills, abd pain. Diarrhea has subsided. No other specific complaints. - Current Medication List Current Medications: Active Medications Apixaban (Eliquis -) 5 mg PO BID [facility] Last Admin: 06/04/17 12:18 Dose: 5 mg Aspirin (Asa -) 81 mg PO DAILY [facility] Last Admin: 06/04/17 10:21 Dose: Not Given Atorvastatin Calcium (Lipitor -) 10 mg PO HS [facility] Last Admin: 06/03/17 22:51 Dose: 10 mg Glipizide (Glucotrol -) 2.5 mg PO DAILY@0700 [facility] Piperacillin Sod/Tazobactam (Sod 2.25 gm/ Dextrose) 50 mls @ 100 mls/hr IVPB Q8H-IV [facility] Last Admin: 06/04/17 10:22 Dose: Not Given Vancomycin HCl 1,500 mg/ (Dextrose) 500 mls @ 250 mls/hr IVPB MoWeFr [facility] Last Admin: 06/02/17 13:53 Dose: 250 mls/hr Insulin Aspart (Novolog Vial Sliding Scale -) 1 vial SQ ACHS [facility] PRN Reason: Protocol Last Admin: 06/04/17 12:28 Dose: Not Given Lactobacillus Acidophilus (Bacid -) 1 tab PO DAILY [facility] Last Admin: 06/04/17 12:17 Dose: 1 tab Lisinopril (Prinivil) 2.5 mg PO DAILY [facility] Last Admin: 06/04/17 10:21 Dose: Not Given Metoprolol Succinate (Toprol Xl -) 25 mg PO DAILY [facility] Last Admin: 06/04/17 12:18 Dose: 25 mg Sevelamer Carbonate (Renvela -) 800 mg PO TIDCM [facility] Tenofovir Disoproxil Fumarate (Viread -) 300 mg PO MOWEFR [facility] Last Admin: 06/04/17 12:18 Dose: 300 mg - Objective Vital Signs: Vital Signs Temperature 97.6 F 06/04/17 07:30 Pulse Rate 81 06/04/17 11:21 Respiratory Rate 18 06/04/17 11:21 Blood Pressure 160/94 06/04/17 11:21 O2 Sat by Pulse Oximetry (%) 95 06/03/17 21:00 Constitutional: Yes: No Distress, Calm Neck: Yes: Supple Cardiovascular: Yes: Regular Rate and Rhythm Respiratory: Yes: CTA Bilaterally Gastrointestinal: Yes: Normal Bowel Sounds, Soft Extremities: Yes: Other (Lt foot ulcer dry, Rt foot wound dressed, no purulence , Rt foot toes with darkened discoloration) Neurological: Yes: Alert, Oriented Psychiatric: Yes: Alert Labs: CBC, BMP 06/04/17 05:35 06/04/17 05:35 INR, PTT INR 1.55 (0.82-1.09) H 06/01/17 11:45 Vancomycin trough: 15.8 Problem List - Problems (1) ESRD (end stage renal disease) on dialysis Code(s): N18.6 - END STAGE RENAL DISEASE; Z99.2 - DEPENDENCE ON RENAL DIALYSIS (2) Osteomyelitis of left foot Code(s): M86.9 - OSTEOMYELITIS, UNSPECIFIED Qualifiers: Osteomyelitis type: unspecified type Qualified Code(s): M86.9 - Osteomyelitis, unspecified (3) Osteomyelitis of right foot Code(s): M86.9 - OSTEOMYELITIS, UNSPECIFIED Qualifiers: Osteomyelitis type: unspecified type Qualified Code(s): M86.9 - Osteomyelitis, unspecified (4) Atrial fibrillation Code(s): I48.91 - UNSPECIFIED ATRIAL FIBRILLATION Qualifiers: Atrial fibrillation type: unspecified Qualified Code(s): I48.91 - Unspecified atrial fibrillation (5) Diabetes Code(s): E11.9 - TYPE 2 DIABETES MELLITUS WITHOUT COMPLICATIONS (6) New onset a-fib Code(s): I48.91 - UNSPECIFIED ATRIAL FIBRILLATION (7) Peripheral arterial disease Code(s): I73.9 - PERIPHERAL VASCULAR DISEASE, UNSPECIFIED Assessment/Plan s/p Sepsis b/l foot OM Rt foot ischemia ESRD on HD DM Hepatitis B -- pt refused antibiotics -- Rt foot MSSA infection -- Lt foot with +MRSA and E. faecalis infected ulcer (earlier this year) -- recommend continue Zosyn and Vancomycin at current doses -- no diarrhea at this time -- cont. Tenofovir
[2017-06-04] MEDS: SEVELAMER CARBONATE 800 MG TAB (FP) PO SCH (17:22)
[2017-06-04] MEDS ORDERED: PROMETHAZINE HCL 25 MG/1 ML VIAL IVPUSH ONE (23:27)
[2017-06-04] MEDS: ATORVASTATIN CA 10 MG TABLET (FP) PO SCH (23:44)
[2017-06-04] MEDS ORDERED: PROMETHAZINE HCL 25 MG/1 ML VIAL IVPB ONE (23:45)
[2017-06-05] MEDS: PIPERACILLIN/TAZOB 2.25 GM 2.25 GM in DEXTROSE 5%-WATER - 50 ML IVPB SCH ×3 (03:27→17:29)
[2017-06-05] MEDS: ATORVASTATIN CA 10 MG TABLET (FP) PO SCH ×2 (03:27→21:30)
[2017-06-05] MEDS: APIXABAN 5 MG TABLET PO SCH ×3 (03:27→21:30)
[2017-06-05] MEDS: INSULIN SLIDING SCALE (NOVOLOG) 1 VIAL SQ SCH ×5 (03:28→21:31)
[2017-06-05] MEDS: BANATROL PLUS POWDER PACKET PO SCH ×3 (05:15→21:31)
[2017-06-05] MEDS: glipiZIDE 5 MG TABLET (FP) PO SCH (06:03)
[2017-06-05 07:58] LABS: BASOPHIL 1.2 % (0-2.0); EOSINOPHIL 1.8 % (0-4.5); MCH 30.4 pg (25.7-33.7); MCHC 32.5 g/dl (32.0-35.9); MEAN CELL VOLUME 93.5 fl (80-96); MEAN PLT VOLUME 9.3 fl (7.5-11.1); NEUTROPHILS 65.3 % (42.8-82.8); PLATELET COUNT 367 K/MM3 (134-434); RDW 14.2 % (11.9-15.9)
--- NOTE | 2017-06-05 08:17 | PN ---
Teaching Attending Note Name of Resident: Pankaj Cartwright ATTENDING PHYSICIAN STATEMENT I saw and evaluated the patient. I reviewed the resident's note and discussed the case with the resident. I agree with the resident's findings and plan as documented. SUBJECTIVE: Patient seen and examined. Had some nausea yesterday, resolved now. No vomitting , Diarrhea resolved. Otherwise feels the same. OBJECTIVE: Vital Signs Period Temp Pulse Resp BP Sys/Palafox Pulse Ox Last 24 Hr 97.7 F-98.6 F 69-82 18-20 125-167/59-95 95 Intake & Output 06/02/17 06/03/17 06/04/17 06/05/17 23:59 23:59 23:59 23:59 Intake Total 550 50 450 50 Output Total 100 Balance 550 50 350 50 General: lying in bed in no acute distress Extremities: bilateral feet dressings, refuses further exam Home Medication List Medication Instructions Recorded Confirmed Type Metoprolol Succinate [Toprol XL -] 25 mg PO DAILY 12/20/16 06/01/17 History Aspirin [ASA -] 81 mg PO DAILY 12/23/16 06/01/17 History Tenofovir Disoproxil Fumarate 300 mg PO MOWEFR 05/26/17 06/01/17 History [Viread -] Active Medications Generic Name Dose Route Start Last Admin Trade Name Freq PRN Reason Stop Dose Admin Apixaban 5 mg 06/01/17 12:45 06/05/17 03:27 Eliquis - PO Not Given BID LORRI Aspirin 81 mg 06/01/17 12:45 06/04/17 10:21 Asa - PO Not Given DAILY LORRI Atorvastatin Calcium 10 mg 06/01/17 22:00 06/05/17 03:27 Lipitor - PO Not Given HS LORRI Glipizide 2.5 mg 06/04/17 13:28 06/05/17 06:03 Glucotrol - PO 2.5 mg DAILY@0700 [facility]RI Administration Piperacillin Sod/Tazobactam 50 mls @ 100 mls/hr 06/01/17 18:00 06/05/17 03:27 Sod 2.25 gm/ Dextrose IVPB 100 mls/hr Q8H-IV L[facility]RI Administration Vancomycin HCl 1,500 mg/ 500 mls @ 250 mls/hr 06/02/17 10:00 06/02/17 13:53 Dextrose IVPB 250 mls/hr MoWeFr LORRI Administration Insulin Aspart 1 vial 06/01/17 13:45 06/05/17 06:07 Novolog Vial Sliding Scale - SQ Not Given ACHS [facility] Protocol Lactobacillus Acidophilus 1 tab 06/01/17 12:45 06/04/17 12:17 Bacid - PO 1 tab DAILY [facility]ORRI Administration Lisinopril 2.5 mg 06/01/17 12:45 06/04/17 10:21 Prinivil PO Not Given DAILY LORRI Metoprolol Succinate 25 mg 06/01/17 12:45 06/04/17 12:18 Toprol Xl - PO 25 mg DAILY [facility]RI Administration Sevelamer Carbonate 800 mg 06/04/17 17:30 06/04/17 17:22 Renvela - PO 800 mg TIDCM [facility]RI Administration Tenofovir Disoproxil Fumarate 300 mg 06/02/17 12:42 06/04/17 12:18 Viread - PO 300 mg MOWEFR [facility]ORRI Administration Laboratory Results - last 24 hr 06/04/17 06/05/17 06/05/17 17:21 06:00 06:00 WBC 11.0 H RBC 3.62 L Hgb 11.0 L Hct 33.9 L MCV 93.5 MCH 30.4 MCHC 32.5 RDW 14.2 Plt Count 367 MPV 9.3 Neutrophils % 65.3 Lymphocytes % 22.3 D Monocytes % 9.4 Eosinophils % 1.8 Basophils % 1.2 Sodium 140 Potassium 4.0 Chloride 98 Carbon Dioxide 29 Anion Gap 13 BUN 16 D Creatinine 4.9 H D Creat Clearance w eGFR 12.06 POC Glucometer 176 Random Glucose 83 D Calcium 7.8 L Phosphorus 3.6 D Magnesium 1.7 L Total Bilirubin 0.4 D AST 13 L D ALT 14 Alkaline Phosphatase 55 Total Protein 6.2 L Albumin 2.1 L 06/05/17 06/05/17 06:05 12:22 WBC RBC Hgb Hct MCV MCH MCHC RDW Plt Count MPV Neutrophils % Lymphocytes % Monocytes % Eosinophils % Basophils % Sodium Potassium Chloride Carbon Dioxide Anion Gap BUN Creatinine Creat Clearance w eGFR POC Glucometer 92 138 Random Glucose Calcium Phosphorus Magnesium Total Bilirubin AST ALT Alkaline Phosphatase Total Protein Albumin ASSESSMENT AND PLAN: 61 yom with pMHx of CAD, ESRD, DM non compliant, Recently admitted with Bilateral diabetic foot osteomyelitis with ulcer/cellulitis/toe gangrene, declined amputation, d/rhiannon on Zosyn/vancomycin after debridement, readmitted as unable to manage antibiotics at home, awaiting placement. -Acute bilateral diabetic foot osteomyelitis with ulcer/cellulitis/toe gangrene s/p debridement -New onset Afib with RVR on recent admit, now in NSR -Diarrhea, suspect antibiotic induced, r/u C difficile -ESRD on HD -DM, no compliant, A1c 8.2 -Hepatitis C Plan: zosyn/vanco renal dosing, Podiatry input for wound dressings and outpatient follow up Patient declined amputation on recent admission and risks were explained. Diarrhea resolved, Stool C difficile if recurrent. AM BS 66 on 12/6 AM, GLipizide decreased to 2.5 mg daily, overall 70s -170s, monitor for now. Toprol XL/eliquis. Continue ASA/statin/Lisinopril. Continue tenofovir Dc to SNF when disposition arranged. Plan discussed with patient in detail, all questions answered
--- NOTE | 2017-06-05 08:54 | PN ---
Physical Exam: SUBJECTIVE: Patient seen and examined. Asymptomatic. Complained of nausea yesterday, given promethazine due to long QTc, now asymptomatic. OBJECTIVE: Vital Signs Period Temp Pulse Resp BP Sys/Palafox Pulse Ox Last 24 Hr 97.7 F-98.6 F 69-82 18-20 125-167/59-95 95 GEN: AAOx3, NAD HEENT: PERRLA, EOMi CV: S1, S2, RRR LUNG: CTABL ABD: Soft, NT, ND MSK: Dressings on bilateral feet, mild swelling. ROM intact. Active Medications Generic Name Dose Route Start Last Admin Trade Name Freq PRN Reason Stop Dose Admin Apixaban 5 mg 06/01/17 12:45 06/05/17 03:27 Eliquis - PO Not Given BID LORRI Aspirin 81 mg 06/01/17 12:45 06/04/17 10:21 Asa - PO Not Given DAILY LORRI Atorvastatin Calcium 10 mg 06/01/17 22:00 06/05/17 03:27 Lipitor - PO Not Given HS LORRI Glipizide 2.5 mg 06/04/17 13:28 06/05/17 06:03 Glucotrol - PO 2.5 mg DAILY@0700 LORRI Administration Piperacillin Sod/Tazobactam 50 mls @ 100 mls/hr 06/01/17 18:00 06/05/17 03:27 Sod 2.25 gm/ Dextrose IVPB 100 mls/hr Q8H-IV LORRI Administration Vancomycin HCl 1,500 mg/ 500 mls @ 250 mls/hr 06/02/17 10:00 06/02/17 13:53 Dextrose IVPB 250 mls/hr MoWeFr LORRI Administration Insulin Aspart 1 vial 06/01/17 13:45 06/05/17 06:07 Novolog Vial Sliding Scale - SQ Not Given ACHS [facility] Protocol Lactobacillus Acidophilus 1 tab 06/01/17 12:45 06/04/17 12:17 Bacid - PO 1 tab DAILY LORRI Administration Lisinopril 2.5 mg 06/01/17 12:45 06/04/17 10:21 Prinivil PO Not Given DAILY LORRI Metoprolol Succinate 25 mg 06/01/17 12:45 06/04/17 12:18 Toprol Xl - PO 25 mg DAILY LORRI Administration Sevelamer Carbonate 800 mg 06/04/17 17:30 06/04/17 17:22 Renvela - PO 800 mg TIDCM LORRI Administration Tenofovir Disoproxil Fumarate 300 mg 06/02/17 12:42 06/04/17 12:18 Viread - PO 300 mg MOWEFR LORRI Administration ASSESSMENT/PLAN: 61yo M with PMH ESRD, HBV on treatment, DM, CHF presented to the ER with complaints of R foot infection that was worsening. # Bilateral foot Osteomyelitis - S/p bilateral debridement on 05/30. +MSSA. Adamantly refuses amputation. Needs 6 weeks of abx at SNF. Zosyn 2.25 TID and Vanc during dialysis. # HTN - On Toprol XL 25mg daily + Lisinopril 2.5, if continues to be elevated can increase Lisinopril dosing # DM- A1c 8.6. On Glipizide 2.5, ISS, switched diet from renal to low sodium due to patient insistence, watch sugars carefully # Diarrhea - Cdiff negative. Continue banatrol flakes and bacid. Collecting new C.diff sample due to new diarrhea, hold immodium till them # ESRD on HD - Continue MWF # Hx of Afib - Sinus. Eliquis 5 BID # Anemia of CD - Stable H/H, monitor, no transfusion needed # Hepatitis B- Continue home Tenofovir # FEN - No IVF, elec wnl, low sodium diet # PPx - Eliquis, no GI needed, PT ordered # Dispo - Continue to await [facility] authorization and placement, SW and CM on the case d/w Dr Otis Cartwright MD - PGY1 Internal Medicine Visit type - Emergency Visit Emergency Visit: No - New Patient This patient is new to me today: No - Critical Care Critical Care patient: No - Discharge Referral Referred to [facility] No
[2017-06-05 09:04] LABS: ALBUMIN 2.1 g/dl (3.4-5.0); ALK PHOS 55 U/L (45-117); ANION GAP 13 (8-16); BILIRUBIN,TOTAL 0.4 mg/dL (0.2-1.0); CALCIUM 7.8 mg/dL (8.5-10.1); CO2 29 mmol/L (21-32); CREATININE 4.9 mg/dL (0.7-1.3); GLUCOSE,RANDOM 83 mg/dL (74-106); MAGNESIUM 1.7 mg/dL (1.8-2.4); PHOSPHOROUS 3.6 mg/dL (2.5-4.9); SGOT/AST 13 U/L (15-37); SGPT/ALT 14 U/L (12-78); TOT PROT 6.2 g/dl (6.4-8.2)
[2017-06-05] MEDS ORDERED: PT OWN MED DRAWER 7, Y5N ONE ×4 (10:09→21:17)
[2017-06-05] MEDS: LACTOBACILLUS ACIDOPHILUS 1 EACH TAB (FP) PO SCH (10:32)
[2017-06-05] MEDS: METOPROLOL SUCCINATE 25 MG TAB.SR.24H (FP) PO SCH (10:32)
[2017-06-05] MEDS: LISINOPRIL 5 MG TABLET (FP) PO SCH (10:32)
[2017-06-05] MEDS: SEVELAMER CARBONATE 800 MG TAB (FP) PO SCH ×3 (10:33→17:33)
[2017-06-05] MEDS: ASPIRIN 81 MG CHEWABLE TABLETS PO SCH (10:33)
--- NOTE | 2017-06-05 12:01 | PN ---
Progress Note (short form) - Note Progress Note: Renal Follow up for ESRD on HD Pt seen and examined at the bedside no acute complaints awaiting placement in rehab Vital Signs Temperature 97.7 F 06/05/17 06:45 Pulse Rate 73 06/05/17 06:45 Respiratory Rate 20 06/05/17 06:45 Blood Pressure 145/73 06/05/17 06:45 O2 Sat by Pulse Oximetry (%) 95 06/04/17 09:00 Intake & Output 06/02/17 06/03/17 06/04/17 06/05/17 23:59 23:59 23:59 23:59 Intake Total 550 50 450 50 Output Total 100 Balance 550 50 350 50 NAD, awake and alert RRR, NO M/R CTA, anterior exam soft, NT/ND No LE edema b/L feet in dressing CBC, BMP 06/05/17 06:00 06/05/17 06:00 Current Medications Apixaban (Eliquis -) 5 mg PO BID [facility] Last Admin: 06/05/17 10:33 Dose: 5 mg Aspirin (Asa -) 81 mg PO DAILY [facility] Last Admin: 06/05/17 10:33 Dose: 81 mg Atorvastatin Calcium (Lipitor -) 10 mg PO HS [facility] Last Admin: 06/05/17 03:27 Dose: Not Given Glipizide (Glucotrol -) 2.5 mg PO DAILY@0700 [facility] Last Admin: 06/05/17 06:03 Dose: 2.5 mg Piperacillin Sod/Tazobactam (Sod 2.25 gm/ Dextrose) 50 mls @ 100 mls/hr IVPB Q8H-IV [facility] Last Admin: 06/05/17 10:32 Dose: 100 mls/hr Vancomycin HCl 1,500 mg/ (Dextrose) 500 mls @ 250 mls/hr IVPB MoWeFr [facility] Last Admin: 06/02/17 13:53 Dose: 250 mls/hr Insulin Aspart (Novolog Vial Sliding Scale -) 1 vial SQ ACHS [facility] PRN Reason: Protocol Last Admin: 06/05/17 06:07 Dose: Not Given Lactobacillus Acidophilus (Bacid -) 1 tab PO DAILY [facility] Last Admin: 06/05/17 10:32 Dose: 1 tab Lisinopril (Prinivil) 2.5 mg PO DAILY [facility] Last Admin: 06/05/17 10:32 Dose: 2.5 mg Metoprolol Succinate (Toprol Xl -) 25 mg PO DAILY [facility] Last Admin: 06/05/17 10:32 Dose: 25 mg Sevelamer Carbonate (Renvela -) 800 mg PO TIDCM [facility] Last Admin: 06/05/17 10:33 Dose: Not Given Tenofovir Disoproxil Fumarate (Viread -) 300 mg PO MOWEFR [facility] Last Admin: 06/04/17 12:18 Dose: 300 mg 61 year old gentleman with PMhx of ESRD on HD, CAD, HTN, Hepatitis B, IDDM non compliant, admitted with CHF in the setting of missing HD, Afib with RVR readmitted with b/l foot ulcerations. #LE ulcerations Continue Abx as per ID ? duration of zosyn can continue to get Vanco with HD #ESRD on HD no acute indication for personnel counselor today next treatment is tomorrow #CKD related Anemia will give MARK with HD #Hypertension Continue lisinopril discharge planning Thank you Jose Zavaleta DO
--- NOTE | 2017-06-05 13:02 | PN ---
Progress Note, Physician History of Present Illness: Pt is alert, afebrile. No new events. - Current Medication List Current Medications: Active Medications Apixaban (Eliquis -) 5 mg PO BID [facility] Last Admin: 06/05/17 10:33 Dose: 5 mg Aspirin (Asa -) 81 mg PO DAILY [facility] Last Admin: 06/05/17 10:33 Dose: 81 mg Atorvastatin Calcium (Lipitor -) 10 mg PO HS [facility] Last Admin: 06/05/17 03:27 Dose: Not Given Glipizide (Glucotrol -) 2.5 mg PO DAILY@0700 [facility] Last Admin: 06/05/17 06:03 Dose: 2.5 mg Piperacillin Sod/Tazobactam (Sod 2.25 gm/ Dextrose) 50 mls @ 100 mls/hr IVPB Q8H-IV [facility] Last Admin: 06/05/17 10:32 Dose: 100 mls/hr Vancomycin HCl 1,500 mg/ (Dextrose) 500 mls @ 250 mls/hr IVPB MoWeFr [facility] Last Admin: 06/02/17 13:53 Dose: 250 mls/hr Insulin Aspart (Novolog Vial Sliding Scale -) 1 vial SQ ACHS [facility] PRN Reason: Protocol Last Admin: 06/05/17 12:33 Dose: Not Given Lactobacillus Acidophilus (Bacid -) 1 tab PO DAILY [facility] Last Admin: 06/05/17 10:32 Dose: 1 tab Lisinopril (Prinivil) 2.5 mg PO DAILY [facility] Last Admin: 06/05/17 10:32 Dose: 2.5 mg Metoprolol Succinate (Toprol Xl -) 25 mg PO DAILY [facility] Last Admin: 06/05/17 10:32 Dose: 25 mg Sevelamer Carbonate (Renvela -) 800 mg PO TIDCM [facility] Last Admin: 06/05/17 12:35 Dose: 800 mg Tenofovir Disoproxil Fumarate (Viread -) 300 mg PO MOWEFR [facility] Last Admin: 06/04/17 12:18 Dose: 300 mg - Objective Vital Signs: Vital Signs Temperature 97.7 F 06/05/17 06:45 Pulse Rate 73 06/05/17 06:45 Respiratory Rate 20 06/05/17 06:45 Blood Pressure 145/73 06/05/17 06:45 O2 Sat by Pulse Oximetry (%) 95 06/04/17 09:00 Constitutional: Yes: No Distress Cardiovascular: Yes: Regular Rate and Rhythm Respiratory: Yes: CTA Bilaterally Gastrointestinal: Yes: Normal Bowel Sounds, Soft Wound/Incision: Yes: Dressing Dry and Intact Labs: CBC, BMP 06/05/17 06:00 06/05/17 06:00 INR, PTT INR 1.55 (0.82-1.09) H 06/01/17 11:45 Problem List - Problems (1) ESRD (end stage renal disease) on dialysis Code(s): N18.6 - END STAGE RENAL DISEASE; Z99.2 - DEPENDENCE ON RENAL DIALYSIS (2) Osteomyelitis of left foot Code(s): M86.9 - OSTEOMYELITIS, UNSPECIFIED Qualifiers: Osteomyelitis type: unspecified type Qualified Code(s): M86.9 - Osteomyelitis, unspecified (3) Osteomyelitis of right foot Code(s): M86.9 - OSTEOMYELITIS, UNSPECIFIED Qualifiers: Osteomyelitis type: unspecified type Qualified Code(s): M86.9 - Osteomyelitis, unspecified (4) Atrial fibrillation Code(s): I48.91 - UNSPECIFIED ATRIAL FIBRILLATION Qualifiers: Atrial fibrillation type: unspecified Qualified Code(s): I48.91 - Unspecified atrial fibrillation (5) Diabetes Code(s): E11.9 - TYPE 2 DIABETES MELLITUS WITHOUT COMPLICATIONS (6) New onset a-fib Code(s): I48.91 - UNSPECIFIED ATRIAL FIBRILLATION (7) Peripheral arterial disease Code(s): I73.9 - PERIPHERAL VASCULAR DISEASE, UNSPECIFIED Assessment/Plan s/p Sepsis b/l foot OM Rt foot toes ESRD on HD DM Hepatitis B -- pt refused amputation -- Rt foot MSSA infection -- Lt foot with +MRSA and E. faecalis infected ulcer (earlier this year) -- continue Zosyn and Vancomycin at current doses to complete total of 6 wks of antibiotics -- recommend weekly cbc, bmp, vancomycin trough levels -- no diarrhea at this time -- cont. Tenofovir - wound care
--- NOTE | 2017-06-05 13:09 | MSN ---
Progress Note (short form) - Note Progress Note: SUBJECTIVE: Pt refused to speak to me. OBJECTIVE Last Vital Signs Temp Pulse Resp BP Pulse Ox 97.7 F 73 20 145/73 95 06/05/17 06:45 06/05/17 06:45 06/05/17 06:45 06/05/17 06:45 06/04/17 09:00 Pt refused the PE Laboratory Last Values WBC 11.0 K/mm3 (4.0-10.0) H 06/05/17 06:00 RBC 3.62 M/mm3 (4.00-5.60) L 06/05/17 06:00 Hgb 11.0 GM/dL (11.7-16.9) L 06/05/17 06:00 Hct 33.9 % (35.4-49) L 06/05/17 06:00 MCV 93.5 fl (80-96) 06/05/17 06:00 MCH 30.4 pg (25.7-33.7) 06/05/17 06:00 MCHC 32.5 g/dl (32.0-35.9) 06/05/17 06:00 RDW 14.2 % (11.9-15.9) 06/05/17 06:00 Plt Count 367 K/MM3 (134-434) 06/05/17 06:00 MPV 9.3 fl (7.5-11.1) 06/05/17 06:00 Neutrophils % 65.3 % (42.8-82.8) 06/05/17 06:00 Lymphocytes % 22.3 % (8-40) D 06/05/17 06:00 Monocytes % 9.4 % (3.8-10.2) 06/05/17 06:00 Eosinophils % 1.8 % (0-4.5) 06/05/17 06:00 Basophils % 1.2 % (0-2.0) 06/05/17 06:00 PT with INR 17.50 SEC (9.98-11.88) H 06/01/17 11:45 INR 1.55 (0.82-1.09) H 06/01/17 11:45 Sodium 140 mmol/L (136-145) 06/05/17 06:00 Potassium 4.0 mmol/L (3.5-5.1) 06/05/17 06:00 Chloride 98 mmol/L (98-107) 06/05/17 06:00 Carbon Dioxide 29 mmol/L (21-32) 06/05/17 06:00 Anion Gap 13 (8-16) 06/05/17 06:00 BUN 16 mg/dL (7-18) D 06/05/17 06:00 Creatinine 4.9 mg/dL (0.7-1.3) H D 06/05/17 06:00 Creat Clearance w eGFR 12.06 (>60) 06/05/17 06:00 POC Glucometer 138 UNITS (80-120) 06/05/17 12:22 Random Glucose 83 mg/dL (74-106) D 06/05/17 06:00 Calcium 7.8 mg/dL (8.5-10.1) L 06/05/17 06:00 Phosphorus 3.6 mg/dL (2.5-4.9) D 06/05/17 06:00 Magnesium 1.7 mg/dL (1.8-2.4) L 06/05/17 06:00 Total Bilirubin 0.4 mg/dL (0.2-1.0) D 06/05/17 06:00 AST 13 U/L (15-37) L D 06/05/17 06:00 ALT 14 U/L (12-78) 06/05/17 06:00 Alkaline Phosphatase 55 U/L (45-117) 06/05/17 06:00 Total Protein 6.2 g/dl (6.4-8.2) L 06/05/17 06:00 Albumin 2.1 g/dl (3.4-5.0) L 06/05/17 06:00 Random Vancomycin 9.973 ug/ml 06/02/17 11:45 Vancomycin Pre-Dose 15.859 ug/ml (5.0-10.0) H* D 06/04/17 05:35 Home Medications Medication Instructions Recorded Metoprolol Succinate [Toprol XL -] 25 mg PO DAILY 12/20/16 Aspirin [ASA -] 81 mg PO DAILY 12/23/16 Tenofovir Disoproxil Fumarate 300 mg PO MOWEFR 05/26/17 [Viread -] Piperacillin/Tazob 2.25 gm [Zosyn 2.25 gm IVPB Q8H #126 bag 05/29/17 2.25GM Ivpb (Pre-Docked)] Apixaban [Eliquis] 5 mg PO BID #60 tablet 05/30/17 Atorvastatin Ca [Lipitor] 10 mg PO HS #30 tablet 05/30/17 Lactobacillus Acidophilus [Bacid -] 1 tab PO DAILY #30 tab 05/30/17 Lisinopril [Prinivil] 2.5 mg PO DAILY #30 tablet 05/30/17 Vancomycin HCl in Dextrose 5 % 1.5 gm IV MOWEFR #18 plast..bag 05/30/17 [Vancomycin 1.5 Gram/250 ml-D5w] A/P Pt is a 61 y/o M with PMhx of ESRD (on HD MWF), HTN, HepB, DM type II ( noncompliant with meds), CAD (s/p CABG), recently diagnosed with b/l foot osteomyelitis presented to the ED after being uncomfortable with self administration of abx, wound care, and episodes of diarrhea. 1. B/l foot osteomyelitis -s/p b/l debridement and lavage on 05/29; refused amputation of R foot so D/ Jelani home on director long term care abx -tunneled catheter in place for director long term care antibiotic tx for 6 weeks; refused going to a SNF last visit but after failing to do independently at home, pt is agreeable to SNF; pt has insurance approval for a SNF; experiencing some difficulties finding a placement at a SNF with a HD center that is also agreeable to and accepting of pt's HepB status and treatment. -wound vac and dressing supplies will be forwarded to the SNF -continue vanc 1 g/zosyn 2.25 mg -Per ID, weekly CBCs, BMP, and vanc trough levels should be drawn 2. Diarrhea -likely due to antibiotics; resolved; no more loose BMs -imodium, banatol flakes PRN -C. diff stool culture if diarrhea recurs; C. diff neg last visit 3. ESRD -continue HD as planned (MWF) 4. DM -HbA1c 8.6 -ISS; BGMs ACHS -glipizide decreased from 5mg to 2.5 mg because sugars have been well controlled 5.A.fib with RVR -in NSR -rate controlled with lopressor 25 mg -eliquis 5 mg BID 6. HTN -well controlled with lisinopril 2.5 mg QD and metoprolol XL 25 mg BID 7. CAD -s/p CABG and stents -aspirin 81 mg QD 8. HepB -tenofovir 300 mg 3x/week 9. HLD -lipitor 10 mg HS 10. FEN -no IVFs -lytes wnl; continue monitoring, replete as necessary -renal diet 11. PPx -DVT: eliquis -No GI ppx Dispo: on [facility]dc antibiotics (vanc/zosyn) via tunneled catheter; agreeable to SNF; awaiting placement Kaila Hanson, MS3
[2017-06-05] MEDS ORDERED: BISMUTH SUBSALICYLATE 524 MG/30 ML UD PO PRN (18:22)
[2017-06-06] MEDS ORDERED: PT OWN MED DRAWER 7, Y5N ONE ×2 (00:14→10:50)
[2017-06-06] MEDS: PIPERACILLIN/TAZOB 2.25 GM 2.25 GM in DEXTROSE 5%-WATER - 50 ML IVPB SCH ×2 (02:37→10:55)
[2017-06-06] MEDS: BANATROL PLUS POWDER PACKET PO SCH ×2 (05:53→15:22)
[2017-06-06] MEDS: INSULIN SLIDING SCALE (NOVOLOG) 1 VIAL SQ SCH ×3 (06:30→18:06)
[2017-06-06] MEDS: glipiZIDE 5 MG TABLET (FP) PO SCH (06:31)
[2017-06-06] MEDS: SEVELAMER CARBONATE 800 MG TAB (FP) PO SCH ×3 (08:54→18:06)
[2017-06-06] MEDS: APIXABAN 5 MG TABLET PO SCH (10:54)
[2017-06-06] MEDS: LACTOBACILLUS ACIDOPHILUS 1 EACH TAB (FP) PO SCH (10:54)
[2017-06-06] MEDS: ASPIRIN 81 MG CHEWABLE TABLETS PO SCH (10:54)
[2017-06-06] MEDS: LISINOPRIL 5 MG TABLET (FP) PO SCH (10:55)
[2017-06-06] MEDS: METOPROLOL SUCCINATE 25 MG TAB.SR.24H (FP) PO SCH (10:55)
[2017-06-06] MEDS ORDERED: HEPARIN NA (PORCINE) 5,000 UNITS/ML 1ML VIAL IVPUSH ONE (13:30)
--- NOTE | 2017-06-06 14:01 | PN ---
Progress Note (short form) - Note Progress Note: Renal Follow up for ESRD on HD Pt seen and examined at the bedside no acute complaints for dialysis today possible discharge to outpatient rehab today Vital Signs Temperature 98.0 F 06/05/17 22:00 Pulse Rate 80 06/05/17 22:00 Respiratory Rate 18 06/05/17 22:00 Blood Pressure 140/75 06/05/17 22:00 O2 Sat by Pulse Oximetry (%) 96 06/05/17 21:00 Intake & Output 06/03/17 06/04/17 06/05/17 06/06/17 23:59 23:59 23:59 23:59 Intake Total 50 450 350 350 Output Total 100 Balance 50 350 350 350 NAD, awake and alert trace LE edema feet in dressing CBC, BMP 06/05/17 06:00 06/05/17 06:00 Current Medications Apixaban (Eliquis -) 5 mg PO BID [facility] Last Admin: 06/06/17 10:54 Dose: 5 mg Aspirin (Asa -) 81 mg PO DAILY [facility] Last Admin: 06/06/17 10:54 Dose: 81 mg Atorvastatin Calcium (Lipitor -) 10 mg PO HS [facility] Last Admin: 06/05/17 21:30 Dose: 10 mg Bismuth Subsalicylate (Pepto-Bismol -) 524 mg PO Q6H PRN Glipizide (Glucotrol -) 2.5 mg PO DAILY@0700 [facility] Last Admin: 06/06/17 06:31 Dose: Not Given Vancomycin HCl 1,500 mg/ (Dextrose) 500 mls @ 250 mls/hr IVPB MoWeFr [facility] Last Admin: 06/02/17 13:53 Dose: 250 mls/hr Ceftazidime 0.5 gm/ Dextrose 100 mls @ 200 mls/hr IVPB DAILY [facility] PRN Reason: Protocol Insulin Aspart (Novolog Vial Sliding Scale -) 1 vial SQ ACHS [facility] PRN Reason: Protocol Last Admin: 06/06/17 06:30 Dose: Not Given Lactobacillus Acidophilus (Bacid -) 1 tab PO DAILY [facility] Last Admin: 06/06/17 10:54 Dose: 1 tab Lisinopril (Prinivil) 2.5 mg PO DAILY [facility] Last Admin: 06/06/17 10:55 Dose: Not Given Metoprolol Succinate (Toprol Xl -) 25 mg PO DAILY [facility] Last Admin: 06/06/17 10:55 Dose: Not Given Sevelamer Carbonate (Renvela -) 800 mg PO TIDCM [facility] Last Admin: 06/06/17 08:54 Dose: Not Given Tenofovir Disoproxil Fumarate (Viread -) 300 mg PO MOWEFR [facility] Last Admin: 06/04/17 12:18 Dose: 300 mg 61 year old gentleman with PMhx of ESRD on HD, CAD, HTN, Hepatitis B, IDDM non compliant, admitted with CHF in the setting of missing HD, Afib with RVR readmitted with b/l foot ulcerations. #LE ulcerations Continue Abx as per ID dose all abx for intermittent HD #ESRD on HD dialysis today UF as tolerated #CKD related Anemia will give MARK with HD #Hypertension Continue lisinopril discharge planning Thank you Jose Zavaleta DO
[2017-06-06 14:07] VITALS: TEMP 98.4
[2017-06-06 14:19] LABS: BASOPHIL 1.2 % (0-2.0); EOSINOPHIL 1.5 % (0-4.5); MCH 30.1 pg (25.7-33.7); MCHC 32.4 g/dl (32.0-35.9); MEAN CELL VOLUME 93.1 fl (80-96); NEUTROPHILS 73.7 % (42.8-82.8); PLATELET COUNT 404 K/MM3 (134-434); WHITE BLOOD COUNT 13.3 K/mm3 (4.0-10.0)
[2017-06-06 14:56] LABS: ALBUMIN 2.3 g/dl (3.4-5.0); ALK PHOS 55 U/L (45-117); ANION GAP 11 (8-16); BILIRUBIN,TOTAL 0.4 mg/dL (0.2-1.0); CALCIUM 7.8 mg/dL (8.5-10.1); CO2 29 mmol/L (21-32); CREATININE 6.7 mg/dL (0.7-1.3); GLUCOSE,RANDOM 115 mg/dL (74-106); MAGNESIUM 1.9 mg/dL (1.8-2.4); PHOSPHOROUS 4.5 mg/dL (2.5-4.9); SGOT/AST 8 U/L (15-37); SGPT/ALT 12 U/L (12-78); TOT PROT 6.6 g/dl (6.4-8.2)
[2017-06-06] MEDS ORDERED: CEFTAZIDIME PENTAHYDRATE 0.5 GM in DEXTROSE 5%-WATER - 50 ML IVPB SCH (15:00)
[2017-06-06] MEDS: VANCOMYCIN 1,500 MG in DEXTROSE 5%-WATER - 500 ML IVPB SCH (15:16)
--- NOTE | 2017-06-06 16:16 | PN ---
Teaching Attending Note Name of Resident: Pankaj Cartwright ATTENDING PHYSICIAN STATEMENT Time of evaluation: 11:00 AM I saw and evaluated the patient. I reviewed the resident's note and discussed the case with the resident. I agree with the resident's findings and plan as documented. SUBJECTIVE: Patient seen and examined. Diarrhea resolved, no further nausea. No new complaints. OBJECTIVE: Vital Signs Period Temp Pulse Resp BP Sys/Palafox Pulse Ox Last 24 Hr 97.8 F-98.4 F 69-83 18-20 128-156/70-87 96-98 Intake & Output 06/03/17 06/04/17 06/05/17 06/06/17 23:59 23:59 23:59 23:59 Intake Total 50 450 350 650 Output Total 100 Balance 50 350 350 650 general: lying in bed in no acute distress Extremities: bilateral feet wound dressing, refused further exam Home Medication List Medication Instructions Recorded Confirmed Type Metoprolol Succinate [Toprol XL -] 25 mg PO DAILY 12/20/16 06/01/17 History Aspirin [ASA -] 81 mg PO DAILY 12/23/16 06/01/17 History Tenofovir Disoproxil Fumarate 300 mg PO MOWEFR 05/26/17 06/01/17 History [Viread -] Active Medications Generic Name Dose Route Start Last Admin Trade Name Freq PRN Reason Stop Dose Admin Apixaban 5 mg 06/01/17 12:45 06/06/17 10:54 Eliquis - PO 5 mg BID LORRI Administration Aspirin 81 mg 06/01/17 12:45 06/06/17 10:54 Asa - PO 81 mg DAILY LORRI Administration Atorvastatin Calcium 10 mg 06/01/17 22:00 06/05/17 21:30 Lipitor - PO 10 mg HS LORRI Administration Bismuth Subsalicylate 524 mg 06/05/17 18:22 Pepto-Bismol - PO Q6H PRN Glipizide 2.5 mg 06/04/17 13:28 06/06/17 06:31 Glucotrol - PO Not Given DAILY@0700 LORRI Vancomycin HCl 1,500 mg/ 500 mls @ 250 mls/hr 06/02/17 10:00 06/06/17 15:16 Dextrose IVPB 250 mls/hr MoWeFr [facility]RI Administration Ceftazidime 0.5 gm/ Dextrose 50 mls @ 100 mls/hr 06/06/17 15:00 IVPB DAILY [facility] Protocol Insulin Aspart 1 vial 06/01/17 13:45 06/06/17 15:21 Novolog Vial Sliding Scale - SQ Not Given ACHS [facility] Protocol Lactobacillus Acidophilus 1 tab 06/01/17 12:45 06/06/17 10:54 Bacid - PO 1 tab DAILY [facility]ORRI Administration Lisinopril 2.5 mg 06/01/17 12:45 06/06/17 10:55 Prinivil PO Not Given DAILY LORRI Metoprolol Succinate 25 mg 06/01/17 12:45 06/06/17 10:55 Toprol Xl - PO Not Given DAILY LORRI Sevelamer Carbonate 800 mg 06/04/17 17:30 06/06/17 15:22 Renvela - PO Not Given TIDCM [facility]RI Tenofovir Disoproxil Fumarate 300 mg 06/02/17 12:42 06/04/17 12:18 Viread - PO 300 mg MOWEFR [facility] Administration Laboratory Results - last 24 hr 06/05/17 06/06/17 06/06/17 17:33 06:29 12:27 WBC RBC Hgb Hct MCV MCH MCHC RDW Plt Count MPV Neutrophils % Lymphocytes % Monocytes % Eosinophils % Basophils % Sodium Potassium Chloride Carbon Dioxide Anion Gap BUN Creatinine Creat Clearance w eGFR POC Glucometer 121 98 124 Random Glucose Calcium Phosphorus Magnesium Total Bilirubin AST ALT Alkaline Phosphatase Total Protein Albumin Random Vancomycin 06/06/17 06/06/17 06/06/17 13:40 13:40 13:40 WBC 13.3 H RBC 3.60 L Hgb 10.9 L Hct 33.6 L MCV 93.1 MCH 30.1 MCHC 32.4 RDW 14.0 Plt Count 404 MPV 9.0 Neutrophils % 73.7 Lymphocytes % 16.1 D Monocytes % 7.5 Eosinophils % 1.5 Basophils % 1.2 Sodium 140 Potassium 4.2 Chloride 100 Carbon Dioxide 29 Anion Gap 11 BUN 27 H D Creatinine 6.7 H D Creat Clearance w eGFR 8.40 POC Glucometer Random Glucose 115 H D Calcium 7.8 L Phosphorus 4.5 D Magnesium 1.9 Total Bilirubin 0.4 AST 8 L D ALT 12 Alkaline Phosphatase 55 Total Protein 6.6 Albumin 2.3 L Random Vancomycin 14.806 ASSESSMENT AND PLAN: 61 yom with pMHx of CAD, ESRD, DM non compliant, Recently admitted with Bilateral diabetic foot osteomyelitis with ulcer/cellulitis/toe gangrene, declined amputation, d/rhiannon on Zosyn/vancomycin after debridement, readmitted as unable to manage antibiotics at home, awaiting placement. -Acute bilateral diabetic foot osteomyelitis with ulcer/cellulitis/toe gangrene s/p debridement -New onset Afib with RVR on recent admit, now in NSR -Diarrhea, suspect antibiotic induced, r/u C difficile -ESRD on HD -DM, no compliant, A1c 8.2 -Hepatitis C Plan: ID/nephrology input noted. Plan for d/c on ceftazidime and vancomycin. weekly labs. D/c to SNF today for 6 weeks antibotic course and continue podiatry/wound care follow up. Plan discussed with patient in detail, all questions answered.
--- NOTE | 2017-06-06 16:40 | DS ---
Physical Exam: SUBJECTIVE: Patient seen and examined. No complaints. No fevers, chilsl, CP, SOB. OBJECTIVE: Vital Signs Period Temp Pulse Resp BP Sys/Palafox Pulse Ox Last 24 Hr 97.8 F-98.4 F 69-83 18-20 128-156/70-87 96-98 PHYSICAL EXAM GEN: AAOx3, NAD HEENT: PERRLA, EOMi CV: S1, S2, RRR LUNG: CTABL ABD: Soft, NT, ND MSK: Dressings on bilateral feet, mild swelling. ROM intact. LABS Laboratory Last Values WBC 13.3 K/mm3 (4.0-10.0) H 06/06/17 13:40 RBC 3.60 M/mm3 (4.00-5.60) L 06/06/17 13:40 Hgb 10.9 GM/dL (11.7-16.9) L 06/06/17 13:40 Hct 33.6 % (35.4-49) L 06/06/17 13:40 MCV 93.1 fl (80-96) 06/06/17 13:40 MCH 30.1 pg (25.7-33.7) 06/06/17 13:40 MCHC 32.4 g/dl (32.0-35.9) 06/06/17 13:40 RDW 14.0 % (11.9-15.9) 06/06/17 13:40 Plt Count 404 K/MM3 (134-434) 06/06/17 13:40 MPV 9.0 fl (7.5-11.1) 06/06/17 13:40 Neutrophils % 73.7 % (42.8-82.8) 06/06/17 13:40 Lymphocytes % 16.1 % (8-40) D 06/06/17 13:40 Monocytes % 7.5 % (3.8-10.2) 06/06/17 13:40 Eosinophils % 1.5 % (0-4.5) 06/06/17 13:40 Basophils % 1.2 % (0-2.0) 06/06/17 13:40 PT with INR 17.50 SEC (9.98-11.88) H 06/01/17 11:45 INR 1.55 (0.82-1.09) H 06/01/17 11:45 Sodium 140 mmol/L (136-145) 06/06/17 13:40 Potassium 4.2 mmol/L (3.5-5.1) 06/06/17 13:40 Chloride 100 mmol/L (98-107) 06/06/17 13:40 Carbon Dioxide 29 mmol/L (21-32) 06/06/17 13:40 Anion Gap 11 (8-16) 06/06/17 13:40 BUN 27 mg/dL (7-18) H D 06/06/17 13:40 Creatinine 6.7 mg/dL (0.7-1.3) H D 06/06/17 13:40 Creat Clearance w eGFR 8.40 (>60) 06/06/17 13:40 POC Glucometer 124 UNITS (80-120) 06/06/17 12:27 Random Glucose 115 mg/dL (74-106) H D 06/06/17 13:40 Calcium 7.8 mg/dL (8.5-10.1) L 06/06/17 13:40 Phosphorus 4.5 mg/dL (2.5-4.9) D 06/06/17 13:40 Magnesium 1.9 mg/dL (1.8-2.4) 06/06/17 13:40 Total Bilirubin 0.4 mg/dL (0.2-1.0) 06/06/17 13:40 AST 8 U/L (15-37) L D 06/06/17 13:40 ALT 12 U/L (12-78) 06/06/17 13:40 Alkaline Phosphatase 55 U/L (45-117) 06/06/17 13:40 Total Protein 6.6 g/dl (6.4-8.2) 06/06/17 13:40 Albumin 2.3 g/dl (3.4-5.0) L 06/06/17 13:40 Random Vancomycin 14.806 ug/ml 06/06/17 13:40 Vancomycin Pre-Dose 15.859 ug/ml (5.0-10.0) H* D 06/04/17 05:35 HOSPITAL COURSE: Date of Admission:06/01/17 Date of Discharge: 06/06/17 Mr. Hernandez is a 61 year old male with a past medical history of DM, CAD, HTN, ESRD on HD MWF, presented to the ED only 2 days after being discharged from [facility] for the inability to give himself IV antibiotics. Patient was previously admitted to the hospital for osteomyelitis of his R fourth toe and a L foot plantar ulcer. He was seen by Dr. Sheth and adamantly refused amputation. He had a debridement performed and he was discharged with a tunneled catheter on a course of vancomycin 3x/week and zosyn 3x/day. At home, patient was compliant with HD. When visiting nurse came to teach the patient how to administer antibiotics, she set up the medications for him. Patient stated that she did not explain to him how to do it himself, and thus he did not receive some doses of antibiotics. During the hospitalization, we continued the patient on his antibiotics. ID followed the patient, and ultimately switched him to Vanc 1.5 with dialysis and Ceftazidime 500mg daily. He had bouts of diarrhea, managed well with banatrol flakes and immodium. Social work and dependency case manager eventually set the patient up at a subacute rehabilitation facility at [facility] in [place] which is near a dialysis center. The patient will also get [facility] delivered to the [facility]. They will continue the 6 week course and work with the patient for physical therapy. He will follow with Podiatry and Infectious Disease. The patient is aware of the hospital course and agrees with the plan. Minutes to complete discharge: 45 Discharge Summary Reason For Visit: OSTEOMYLITIS OF RT & LT FOOT Current Active Problems ESRD (end stage renal disease) on dialysis (Acute) Osteomyelitis of left foot (Acute) Osteomyelitis of right foot (Acute) Condition: Improved - Instructions Diet, Activity, Other Instructions: RECOMMENDATIONS: - We admitted you because of diabetic foot osteomyelitis. You will be sent to a subacute rehabilitation facility - You will be sent on antibiotics through your tunneled catheter - You will also be sent a wound-vac which will be placed while you are in your rehab place, they will be sent instructions on how to care for it by the [employer] - Continue your antibiotic and diabetic regimen. Continue a diabetic and low sodium diet - Continue physical therapy to build up your strength and improve the vasculature in your legs - You will need weekly ESR, CRP, Complete blood count, Liver Panel and Complete Metabolic Panel while on antibiotics. -Routine PICC line care and removal after antibiotic completion per your doctor. . - You will need a vanc trough before each dialysis session to titrate your vancomycin level - If you notice any new fevers, chills, worsening leg symptoms, diarrhea or new concerns, notify your SNF MD or come to ED. MEDICATION CHANGES: - CONTINUE Vancomycin with dialysis and Ceftazidime 500mg IV daily - START Glipizide 2.5mg tablets daily - START Insulin Sliding Scale as follows: BGM 101 - 150 --> Give 0 units insulin BGM 151 - 200 --> Give 2 units insulin BGM 201 - 250 --> Give 4 units insulin BGM 251 - 300 --> Give 6 units insulin BGM 301 - 350 --> Give 8 units insulin BGM 351 - 400 --> Give 10 units insulin BGM +400 --> Give 12 units insulin and call your doctor FOLLOWUPS: -Weekly CBC, BMP, LFTs, ESR, CRP while on antibiotics with results to Infectious disease Doctor Dr. Kothari - Dr. Jose Zavaleta ([place]) - Followup in 1-2 weeks - Dr. Oz Johnston (Director of the [facility]) - Followup in 3 weeks - Dr. Demetri Sheth ([employer]) - Followup in 1 week - Dr. Kothari in 4 weeks - Your master ocean in 2-4 weeks. -Discuss with your doctor for outpatient gastroenterology follow up for Hepatitis B and ongoing treatment. Referrals: Demetri Sheth MD [Staff Physician] - 1 Week Jose Zavaleta MD [Staff Physician] - 2 Weeks Alicia Kothari MD [Staff Physician] - 2 Weeks Preston Clinton MD [Staff Physician] - 2 Weeks (Please see Oscar Marroquin MD) Disposition: P[facility]ITENTIARY FACILITY - Home Medications Comprehensive Discharge Medication List: Ambulatory Orders Metoprolol Succinate [Toprol XL -] 25 mg PO DAILY 12/20/16 Aspirin [ASA -] 81 mg PO DAILY 12/23/16 Tenofovir Disoproxil Fumarate [Viread -] 300 mg PO MOWEFR 05/26/17 Apixaban [Eliquis] 5 mg PO BID #60 tablet 05/30/17 Atorvastatin Ca [Lipitor] 10 mg PO HS #30 tablet 05/30/17 Lactobacillus Acidophilus [Bacid -] 1 tab PO DAILY #30 tab 05/30/17 Lisinopril [Prinivil] 2.5 mg PO DAILY #30 tablet 05/30/17 Vancomycin HCl in Dextrose 5 % [Vancomycin 1.5 Gram/250 ml-D5w] 1.5 gm IV MOWEFR #18 plast..bag 05/30/17 Ceftazidime in Dextrose5%Water [Ceftazidime 1 gm Piggyback] 0.5 gm IV DAILY #31 piggyback 06/06/17 Glipizide [Glucotrol -] 2.5 mg PO DAILY@0700 #30 tablet 06/06/17 Insulin Sliding Scale [Novolog Vial Sliding Scale -] See Protocol SQ ACHS #1 vial 06/06/17 This patient is new to me today: No Emergency Visit: No Critical Care patient: No - Discharge Referral [facility]erred to [facility] No
[2017-06-06 17:27] VITALS: BP 142/77; PULSE 71
[2017-06-06] MEDS: TENOFOVIR DISOPROXIL FUMARATE 300 MG TABLET PO SCH (18:06)
--- NOTE | 2017-06-06 18:35 | PN ---
Progress Note, Physician History of Present Illness: Pt without new complaints. Returned from HD. Denies fever, chills, diarrhea. - Current Medication List Current Medications: Active Medications Apixaban (Eliquis -) 5 mg PO BID [facility] Last Admin: 06/06/17 10:54 Dose: 5 mg Aspirin (Asa -) 81 mg PO DAILY [facility] Last Admin: 06/06/17 10:54 Dose: 81 mg Atorvastatin Calcium (Lipitor -) 10 mg PO HS [facility] Last Admin: 06/05/17 21:30 Dose: 10 mg Bismuth Subsalicylate (Pepto-Bismol -) 524 mg PO Q6H PRN Glipizide (Glucotrol -) 2.5 mg PO DAILY@0700 [facility] Last Admin: 06/06/17 06:31 Dose: Not Given Vancomycin HCl 1,500 mg/ (Dextrose) 500 mls @ 250 mls/hr IVPB MoWeFr [facility] Last Admin: 06/06/17 15:16 Dose: 250 mls/hr Ceftazidime 0.5 gm/ Dextrose 50 mls @ 100 mls/hr IVPB DAILY [facility] PRN Reason: Protocol Last Admin: 06/06/17 18:06 Dose: Not Given Insulin Aspart (Novolog Vial Sliding Scale -) 1 vial SQ ACHS [facility] PRN Reason: Protocol Last Admin: 06/06/17 18:06 Dose: Not Given Lactobacillus Acidophilus (Bacid -) 1 tab PO DAILY [facility] Last Admin: 06/06/17 10:54 Dose: 1 tab Lisinopril (Prinivil) 2.5 mg PO DAILY [facility] Last Admin: 06/06/17 10:55 Dose: Not Given Metoprolol Succinate (Toprol Xl -) 25 mg PO DAILY [facility] Last Admin: 06/06/17 10:55 Dose: Not Given Sevelamer Carbonate (Renvela -) 800 mg PO TIDCM [facility] Last Admin: 06/06/17 18:06 Dose: Not Given Tenofovir Disoproxil Fumarate (Viread -) 300 mg PO MOWEFR [facility] Last Admin: 06/06/17 18:06 Dose: 300 mg - Objective Vital Signs: Vital Signs Temperature 98.4 F 06/06/17 13:40 Pulse Rate 71 06/06/17 17:20 Respiratory Rate 18 06/06/17 17:20 Blood Pressure 142/77 06/06/17 17:20 O2 Sat by Pulse Oximetry (%) 98 06/06/17 09:00 Constitutional: Yes: No Distress, Calm Cardiovascular: Yes: Regular Rate and Rhythm Respiratory: Yes: Regular Gastrointestinal: Yes: Normal Bowel Sounds, Soft Extremities: Yes: Other (Rt toes ischemic changes, wound dress, Lt foot dressed dry/intact) Neurological: Yes: Alert, Oriented Labs: CBC, BMP 06/06/17 13:40 06/06/17 13:40 INR, PTT INR 1.55 (0.82-1.09) H 06/01/17 11:45 Problem List - Problems (1) ESRD (end stage renal disease) on dialysis Code(s): N18.6 - END STAGE RENAL DISEASE; Z99.2 - DEPENDENCE ON RENAL DIALYSIS (2) Osteomyelitis of left foot Code(s): M86.9 - OSTEOMYELITIS, UNSPECIFIED Qualifiers: Osteomyelitis type: unspecified type Qualified Code(s): M86.9 - Osteomyelitis, unspecified (3) Osteomyelitis of right foot Code(s): M86.9 - OSTEOMYELITIS, UNSPECIFIED Qualifiers: Osteomyelitis type: unspecified type Qualified Code(s): M86.9 - Osteomyelitis, unspecified (4) Atrial fibrillation Code(s): I48.91 - UNSPECIFIED ATRIAL FIBRILLATION Qualifiers: Atrial fibrillation type: unspecified Qualified Code(s): I48.91 - Unspecified atrial fibrillation (5) Diabetes Code(s): E11.9 - TYPE 2 DIABETES MELLITUS WITHOUT COMPLICATIONS (6) New onset a-fib Code(s): I48.91 - UNSPECIFIED ATRIAL FIBRILLATION (7) Peripheral arterial disease Code(s): I73.9 - PERIPHERAL VASCULAR DISEASE, UNSPECIFIED Assessment/Plan s/p Sepsis b/l foot OM PVD, Rt foot toes with ischemia ESRD on HD DM Hepatitis B -- pt refused amputation -- Rt foot MSSA infection -- Lt foot with +MRSA and E. faecalis infected ulcer previously -- cont. Vancomycin, switch from Zosyn to Ceftazidime -- weekly cbc, bmp, vancomycin trough levels -- cont. Tenofovir -- f/u with podiatry for d/c to SNF
== END 2017-06-06 19:49 | DRG 638 ==
LOC: JER 10:39 → JERBED 12:03 → OBSVTOIN 12:32 → J8W 14:13
PROVIDERS: ADMIT Internal Medicine; ATTEND Hospitalist
PROC: 5A1D90Z Performance of Urinary Filtration, Continuous, Greater than 18 hours Per Day (ICD-10-PCS; principal; 2017-06-04)
DX: E13.69 Other specified diabetes mellitus with other specified complication (principal); M86.172 Other acute osteomyelitis, left ankle and foot; E13.52 Other specified diabetes mellitus with diabetic peripheral angiopathy with gangrene; M86.171 Other acute osteomyelitis, right ankle and foot; B19.10 Unspecified viral hepatitis B without hepatic coma; I13.0 Hypertensive heart and chronic kidney disease with heart failure and stage 1 through stage 4 chronic kidney disease, or unspecified chronic kidney disease; N18.6 End stage renal disease; E13.621 Other specified diabetes mellitus with foot ulcer; E11.22 Type 2 diabetes mellitus with diabetic chronic kidney disease; Z99.2 Dependence on renal dialysis; I48.91 Unspecified atrial fibrillation; I73.9 Peripheral vascular disease, unspecified; D63.1 Anemia in chronic kidney disease; I25.119 Atherosclerotic heart disease of native coronary artery with unspecified angina pectoris; Z95.1 Presence of aortocoronary bypass graft; Z91.14 Patient's other noncompliance with medication regimen; E78.5 Hyperlipidemia, unspecified; I50.9 Heart failure, unspecified; E11.65 Type 2 diabetes mellitus with hyperglycemia
CPT/HCPCS: 36415; 71010-TC; 80048; 80053; 83735; 84100; 85025; 85027; 85610; 97116-GP; 97161-GP; 99284-25; G0378; G0480; J0885; J1644

== ENCOUNTER 2017-07-10 13:15 | Emergency (ER) | payer OTHER ==
[2017-07-10 13:27] VITALS: BMI 38.0
--- NOTE | 2017-07-10 17:02 | PDOC ---
History of Present Illness - General Chief Complaint: PICC Line Insertion Stated Complaint: PICC LINE REMOVAL Time Seen by Provider: 07/10/17 16:36 History Source: Patient Exam Limitations: No Limitations - History of Present Illness Initial Comments: 07/10/17 16:54 Patient is a 61-year-old male with a past medical history of DM, CAD, HTN, ESRD on HD MWF, discharged today from the [facility] in [place] was given instruction to return to emergency department for removal of PICC line that was placed 6 weeks prior. Patient had PICC line placed on hospitalization starting on 06/01 for osteomyelitis of foot. Patient reports that in the long-term they attempted to pull the catheter out and it was "caught on something". Allergies: No known allergies Medications: See medication list] Family History: Non-contributory Social History: Denies smoking, alcohol use, or IVDU Review of Systems GENERAL/CONSTITUTIONAL: [No fever or chills. No weakness. No weight change.] CARDIOVASCULAR: [No chest pain or shortness of breath. PICC line to right side of chest] RESPIRATORY: [No cough, wheezing, or hemoptysis.] SKIN AND BREASTS: No erythema, edema, or easy bruising. Physical Exam: GENERAL: [The patient is awake, alert, and fully oriented, in no acute distress. ] NECK: [Normal range of motion, supple without lymphadenopathy, JVD, or masses.] LUNGS: [Breath sounds equal, clear to auscultation bilaterally. No wheezes, and no crackles.] HEART: [Regular rate and rhythm, normal S1 and S2 without murmur, rub or gallop. ] SKIN: [Warm, Dry, normal turgor, no rashes or lesions noted. PICC line inserted to right anterior chest, there is no erythema edema, no drainage, no induration to area.] Past History - Past Medical History Allergies/Adverse Reactions: Allergies Allergy/AdvReac Type Severity Reaction Status Date / Time No Known Allergies Allergy Verified 07/10/17 13:27 Home Medications: Ambulatory Orders Aspirin [ASA -] 81 mg PO DAILY 12/23/16 Tenofovir Disoproxil Fumarate [Viread -] 300 mg PO MOWEFR 05/26/17 Lisinopril [Prinivil] 2.5 mg PO DAILY #30 tablet 05/30/17 Insulin Sliding Scale [Novolog Vial Sliding Scale -] See Protocol SQ ACHS #1 vial 06/06/17 Anemia: No Asthma: No Cancer: No Cardiac Disorders: Yes (BYPASS SX, CARDIAC STENTS) CVA: No COPD: No CHF: No ((A "FEW yEARS AGO)) DVT: No Dementia: No Diabetes: Yes Dialysis: Yes (M-W-F) GI Disorders: Yes (Hepatitis b) Disorders: No HTN: Yes Hypercholesterolemia: Yes 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) Seizures: No Thyroid Disease: No - Surgical History Abdominal Surgery: No Appendectomy: Yes Cardiac Surgery: Yes (4 bypass) Cholecystectomy: No Lung Surgery: No Neurologic Surgery: No Orthopedic Surgery: Yes (4 BACK SURGERIES, 3 NECK SURGERY) - Immunization History Immunization Up to Date: Yes - Suicide/Smoking/Psychosocial Hx Smoking Status: No Smoking History: Unknown if ever smoked Have you smoked in the past 12 months: No Number of Cigarettes Smoked Daily: 0 Information on smoking cessation initiated: No Hx Alcohol Use: No Drug/Substance Use Hx: No Substance Use Type: None Hx Substance Use Treatment: No *Physical Exam - Vital Signs Last Vital Signs Temp Pulse Resp BP Pulse Ox 81 19 124/68 97 07/10/17 13:25 07/10/17 13:25 07/10/17 13:25 07/10/17 13:25 Medical Decision Making - Medical Decision Making 07/10/17 18:17 A/P: Patient here requesting PICC line removal. Patient reports that they attempted to remove the catheter in the long-term and it was not able to be removed. 07/10/17 18:27 Chest x-ray performed demonstrated a right internal jugular approach central venous catheter which is unchanged in position with catheter tip terminating over the distal SVC no kinking or discontinuity of the central catheter. There is a small bilateral pleural effusion, patchy opacities in the left lung base may be atelectasis or pneumonia. Mildly displaced fractures of the posterior right fifth and sixth ribs are H determinant but appeared to be new since 2016. Discussed the findings of the x-ray with the patient, he denies any cough, no hemoptysis, no chest pain or shortness of breath. No new symptoms. Denies any falls, no back pain, no pain to chest or ribs. Patient has recently had last dose of antibiotics today. No new symptoms, no fever, no increased lethargy. Patient has requested that interventional radiology call him at either home number or work number, home is [phone], work is [phone] extension [phone] to schedule removal of PICC line. Also given patient the phone number to call interventional radiology to schedule if no call *DC/Admit/Observation/Transfer Diagnosis at time of Disposition: Encounter for removal of peripherally inserted central catheter - Discharge Dispostion Disposition: HOME Condition at time of disposition: Stable Admit: No - Referrals - Patient Instructions Additional Instructions: Please call [phone] schedule removal of PICC line if you do not hear from them tomorrow Fever, coughing, shortness of breath, pain to chest, or any other concerns including redness around insertion site of catheter return immediately to ER - Post Discharge Activity
[2017-07-10 18:20] VITALS: BP 139/77; PULSE 68
== END 2017-07-10 18:48 | disposition home or self-care (01) ==
LOC: JER 13:15
DX: Z45.2 Encounter for adjustment and management of vascular access device (principal); I25.10 Atherosclerotic heart disease of native coronary artery without angina pectoris; I13.11 Hypertensive heart and chronic kidney disease without heart failure, with stage 5 chronic kidney disease, or end stage renal disease; N18.6 End stage renal disease; Z99.2 Dependence on renal dialysis; Z95.1 Presence of aortocoronary bypass graft; Z95.5 Presence of coronary angioplasty implant and graft; E11.9 Type 2 diabetes mellitus without complications; Z79.4 Long term (current) use of insulin; B19.10 Unspecified viral hepatitis B without hepatic coma; Z79.82 Long term (current) use of aspirin
CPT/HCPCS: 71045-TC; 99283-25

== ENCOUNTER → 2017-07-15 | Day surgery (SDC) | payer OTHER | END | disposition home or self-care (01) | LOC: JRADIR 08:34 | PROVIDERS: ATTEND Radiology Diagnostic Radiology | PROC: 02PY03Z Removal of Infusion Device from Great Vessel, Open Approach (ICD-10-PCS; principal; 2017-07-15) | DX: Z45.2 Encounter for adjustment and management of vascular access device (principal) | CPT/HCPCS: 36589 ==

== ENCOUNTER 2017-07-24 06:39 | Day surgery (SDC) | payer OTHER ==
[2017-07-23 17:47] VITALS: BMI 35.2
[2017-07-24] MEDS ORDERED: KETOROLAC TROMETHAMINE 30 MG/1 ML VIAL ONE (07:22)
[2017-07-24] MEDS ORDERED: DEXAMETHASONE SOD PHOSPHATE 4 MG/1 ML VIAL ONE (07:22)
[2017-07-24] MEDS ORDERED: LIDOCAINE HCL/PF 2% SDV 5ML VIAL ONE (07:22)
[2017-07-24 08:02] LABS: POTASSIUM 4.6 mmol/L (3.5-5.1)
[2017-07-24 08:22] LABS: INR 1.09 (0.82-1.09); PROTHROMBIN TIME (PATIENT) 12.3 SEC (9.98-11.88)
[2017-07-24] MEDS ORDERED: ONDANSETRON 4 MG/2 ML VIAL IVPUSH PRN (08:39)
[2017-07-24] MEDS ORDERED: oxyCODONE HCL 5 MG TABLET PO PRN (08:39)
[2017-07-24] MEDS ORDERED: LACTATED RINGERS SOLUTION 1,000 ML IV SCH (08:45)
[2017-07-24] MEDS ORDERED: LIDOCAINE HCL 1%, 10 MG/ML (20ML VIAL) ONE (08:52)
[2017-07-24] MEDS ORDERED: MIDAZOLAM HCL 2 MG/2 ML SINGLE DOSE VIAL ONE (09:06)
[2017-07-24] MEDS ORDERED: PROPOFOL 20 ML ONE ×2 (09:07)
[2017-07-24] MEDS ORDERED: ceFAZolin SODIUM 1 GM VIAL IVPB ONE (09:15)
[2017-07-24] MEDS ORDERED: ceFAZolin SODIUM 1 GM VIAL ONE (09:16)
[2017-07-24] MEDS ORDERED: SODIUM CHLORIDE 0.9% P/F 10 ML VIAL IJ ONE (09:16)
[2017-07-24] MEDS ORDERED: LIDOCAINE HCL 1%, 10 MG/ML (20ML VIAL) PNB ONE (09:21)
--- NOTE | 2017-07-24 09:53 | HP ---
Admitting History and Physical - Admission Chief Complaint: right third and fourth toe gangrene Limitations to Obtaining History: No Limitations - Past Medical History Cardiovascular: Yes: CAD, HTN, Hyperlipdemia Pulmonary: Yes: COPD Hepatobiliary: Yes: Hepatitis B Renal/: Yes: Renal Failure, Renal Inusuff, Hemodialysis Infectious Disease: Yes: Other (Hepatitis B) Musculoskeletal: Yes: Chronic low back pain, Other (back pain) Endocrine: Yes: Diabetes Mellitus - Past Surgical History Past Surgical History: Yes: Laminectomy, CABG - Smoking History Smoking history: Never smoked Have you smoked in the past 12 months: No Aproximately how many cigarettes per day: 0 - Alcohol/Substance Use Hx Alcohol Use: No - Social History ADL: Independent History of Recent Travel: Yes ([place] x 1 wk) Home Medications - Allergies Allergies/Adverse Reactions: Allergies Allergy/AdvReac Type Severity Reaction Status Date / Time No Known Allergies Allergy Verified 07/23/17 17:53 - Home Medications Home Medications: Ambulatory Orders Aspirin [ASA -] 81 mg PO DAILY 12/23/16 Tenofovir Disoproxil Fumarate [Viread -] 300 mg PO UTDICT 05/26/17 Lisinopril [Prinivil] 2.5 mg PO DAILY #30 tablet 05/30/17 Atorvastatin Ca [Lipitor] 10 mg PO DAILY 07/24/17 Metoprolol Succinate [Toprol Xl] 25 mg PO DAILY 07/24/17 Family Disease History - Family Disease History Family Disease History: CA: Father, Mother (ovarian) Review of Systems - Review of Systems Constitutional: reports: No Symptoms Eyes: reports: No Symptoms HENT: reports: No Symptoms Neck: reports: No Symptoms Cardiovascular: reports: No Symptoms Respiratory: reports: No Symptoms Gastrointestinal: reports: No Symptoms Genitourinary: reports: No Symptoms Breasts: reports: No Symptoms Reported Musculoskeletal: reports: No Symptoms, Other (right third and fourth toe gangrene) Integumentary: reports: No Symptoms Neurological: reports: No Symptoms Physical Examination Vital Signs: Vital Signs Temperature 98.1 F 07/24/17 07:08 Pulse Rate 83 07/24/17 07:08 Respiratory Rate 20 07/24/17 07:08 Blood Pressure 120/68 07/24/17 07:08 O2 Sat by Pulse Oximetry (%) 99 07/24/17 07:08 Constitutional: Yes: Well Nourished, No Distress, Calm Eyes: Yes: WNL, Conjunctiva Clear, EOM Intact HENT: Yes: WNL, Atraumatic, Normocephalic Neck: Yes: WNL, Supple, Trachea Midline Cardiovascular: Yes: WNL, Regular Rate and Rhythm Respiratory: Yes: WNL, Regular, CTA Bilaterally Gastrointestinal: Yes: WNL, Normal Bowel Sounds Musculoskeletal: Yes: WNL, Other (right third and fourth toe gangrene) Extremities: Yes: WNL Edema: No Peripheral Pulses WNL: Yes Integumentary: Yes: WNL Neurological: Yes: WNL, Alert, Oriented ...Motor Strength: WNL Psychiatric: Yes: WNL Labs: CBC, BMP 07/24/17 07:38 Problem List - Problems (1) Gangrene of toe of right foot Code(s): I96 - GANGRENE, NOT ELSEWHERE CLASSIFIED Assessment/Plan right third and fourth toe gangrene 1. For amputation today
--- NOTE | 2017-07-24 09:54 | OP ---
Operative Note - Note: Operative Date: 07/24/17 Pre-Operative Diagnosis: right third and fourth toe gangrene Operation: right third and fourth toe amputation with placement of vac dressing Post-Operative Diagnosis: Same as Pre-op Surgeon: Garrett Hanson Anesthesia: Fractional Estimated Blood Loss (mls): 50 Operative Report Dictated: Yes
[2017-07-24 11:05] VITALS: TEMP 97.8
[2017-07-24 13:00] VITALS: BP 125/70; PULSE 74
--- NOTE | 2017-07-30 10:02 | PATH ---
Surgical Pathology Report Patient Name: ELSIE JENSEN [facility]. Rec. #: [id number] /Age/Gender: 1955 (Age: 61) / M Account: [id number] Location: [facility] Taken: 07/24/2017 Received: 07/24/2017 Reported: 07/30/2017 Physicians: Garrett Hanson Specimen(s) Received 3RD AND 4TH TOES, DEBRIDED TISSUE AND BONE FROM RIGHT TOE Clinical History Right fourth and third toe gangrene Final Diagnosis TOES, RIGHT, FOURTH AND THIRD, AMPUTATION AND DEBRIDEMENT: AMPUTATED DIGITS (TOES) WITH MARKED ACUTE INFLAMMATION AND GANGRENOUS NECROSIS, INVOLVING SOFT TISSUE SURGICAL MARGIN OF LARGER TOE. ACUTE OSTEOMYELITIS INVOLVING THE LARGER TOE AND CORRESPONDING SURGICAL MARGIN. BONE AND SOFT TISSUE SURGICAL MARGINS OF SMALLER TOE ARE VIABLE. Electronically Signed Nelsy Corley M.D. Gross Description Received in formalin labeled "right fourth and third toe debrided tissue," are 2 undesignated toe amputation specimens measuring 2.6 x 1.5 x 1.4 cm and 3.0 x 2.0 x 1.6 cm. The epidermal surface is are entirely gangrenous. The gangrenous lesion appears to involve the skin and soft tissue margin as well as the underlying bone. Also received within the same container is a 5.5 x 3.0 x 0.4 cm aggregate of skin, soft tissue and bone fragments. Immunochemist sections are submitted in 5 cassettes as follows: 1-lesion with underlying bone from smaller toe amputation, following decalcification; 2-skin, soft tissue and bone margin from smaller toe amputation, following decalcification; 3-lesion with underlying bone from larger toe amputation, following decalcification; 4-skin, soft tissue and bone margin from larger toe amputation, following decalcification; 5-separately received fragments, following decalcification. /07/24/201707/24/2017
--- NOTE | 2017-07-31 07:49 | OP ---
DATE OF OPERATION: 07/24/2017 PREOPERATIVE DIAGNOSIS: Right 3rd and 4th toe gangrene. POSTOPERATIVE DIAGNOSIS: Right 3rd and 4th toe gangrene. OPERATION: Right 3rd and 4th toe amputation with placement of vacuum-assisted closure dressing. SURGEON: Garrett Del Cid MD ANESTHESIA: Fractional. BLOOD LOSS: 50 mL. INDICATIONS: The patient is a 61-year-old male who has right 3rd and 4th toe gangrene with an open wound on his forefoot almost exposing all his tendons. It was decided that he would need to have those toes removed and a VAC dressing placed. Patient was consented. Patient came into ambulatory surgery. Patient was consented for the procedure understanding all risks, benefits, and alternatives and was then taken to the operating room. PROCEDURE IN DETAIL: Once in the operating room, he was placed on the operating table in the supine manner. The area of the right foot was prepped and draped in a sterile surgical manner. We then injected 10 mL of lidocaine 1% around the 3rd and 4th toes. We then went ahead and took a No. 15 blade, and we were able to make an elliptical incision around the 3rd and 4th toes. Bovie electrocautery was used to control hemostasis, and we were able to get down to the metatarsal bones. We then used a bone cutter, and the bones were cut for the 3rd and 4th toes, and the toes were sent down to Pathology. The wound was opened. It was nice and clean, granulating well. Now, that the toes were removed, there was a good surface for the VAC to be placed. We went ahead and irrigated the wound copiously. Bovie electrocautery was used to control hemostasis. We then went ahead and placed a black foam VAC on, and the VAC was placed, and the machine was turned on, and there was good negative pressure on the wound, now. All of this was done intraoperatively, so the patient did not feel any pain. Once finished, we put a Kerlix around the VAC dressing, and the patient was transferred to PACU. The patient tolerated the procedure with no complications. Patient was transferred to PACU in stable condition. Total blood loss was 50 mL. GARRETT DEL CID DO [id number]
== END 2017-07-24 12:50 | disposition home or self-care (01) ==
LOC: JASU-SURG 06:39
PROVIDERS: ATTEND Surgery Vascular Surgery
PROC: 0Y6V0Z1 Detachment at Right 4th Toe, High, Open Approach (ICD-10-PCS; 2017-07-24)
PROC: 0Y6T0Z2 Detachment at Right 3rd Toe, Mid, Open Approach (ICD-10-PCS; principal; 2017-07-24 09:00)
DX: E11.52 Type 2 diabetes mellitus with diabetic peripheral angiopathy with gangrene (principal); I12.0 Hypertensive chronic kidney disease with stage 5 chronic kidney disease or end stage renal disease; E11.22 Type 2 diabetes mellitus with diabetic chronic kidney disease; N18.6 End stage renal disease; Z99.2 Dependence on renal dialysis; Z79.4 Long term (current) use of insulin; M86.9 Osteomyelitis, unspecified
CPT/HCPCS: 36415; 82947; 84132; 85610; 88305-TC; 88311-TC; 94760

== ENCOUNTER 2017-08-04 18:45 | Emergency (ER) | payer OTHER ==
[2017-08-04 19:12] VITALS: BP 150/78; PULSE 87; TEMP 98.4; BMI 33.4
--- NOTE | 2017-08-04 19:19 | PDOC ---
Rapid Medical Evaluation Time Seen by Provider: 08/04/17 19:05 Medical Evaluation: Allergies Allergy/AdvReac Type Severity Reaction Status Date / Time No Known Allergies Allergy Verified 07/23/17 17:53 08/04/17 19:05 The patient presents with a chief complaint of: wound vac blockage. Dr. Hanson is his wound doctor. Started this afternoon. Visiting Nurse Services I have performed a brief in-person evaluation of this patient; Pertinent physical exam findings: ambulatory, in no respiratory distress. VSS, anxious. Wound vac with blockage, not running I have ordered the following: Nothing The patient will proceed to the ED for further evaluation.
--- NOTE | 2017-08-04 21:48 | PDOC ---
History of Present Illness <Kailyn Post - Last Filed: 08/04/17 22:29> - History of Present Illness Initial Comments: Mr. Hernandez is a 61 year old male with a PMHx of ESRD (MWF), DM2, HTN, CAD, and a recent R 3rd and 4th toe amputation on 07/24 for ostemyelitis with wound vac placement by Dr Garrett Hanson. He presents to the ER for a non-working wound vac. He stated that visiting nurse came this morning, but in the afternoon he heard a beeping noise and there was a notice on the wound vac that there was a blockage and the pressure was down to 00mmHg. He denies any symptoms such as CP , SOB, fevers, chills, foot pain, etc. <Pankaj Cartwright - Last Filed: 08/04/17 22:43> - General Chief Complaint: Wound Stated Complaint: FOOT PAIN Time Seen by Provider: 08/04/17 19:05 Past History <Kailyn Post - Last Filed: 08/04/17 22:29> - Past Medical History Anemia: No Asthma: No Cancer: No Cardiac Disorders: Yes (BYPASS SX, CARDIAC STENTS) CVA: No COPD: No CHF: No ((A "FEW yEARS AGO)) DVT: No Dementia: No Diabetes: Yes Dialysis: Yes (M-W-F) GI Disorders: Yes (Hepatitis b) Disorders: No HTN: Yes Hypercholesterolemia: Yes 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) Seizures: No Thyroid Disease: No - Surgical History Abdominal Surgery: No Appendectomy: Yes Cardiac Surgery: Yes (4 bypass) Cholecystectomy: No Lung Surgery: No Neurologic Surgery: No Orthopedic Surgery: Yes (4 BACK SURGERIES, 3 NECK SURGERY) - Immunization History Immunization Up to Date: Yes - Suicide/Smoking/Psychosocial Hx Smoking Status: No Smoking History: Unknown if ever smoked Have you smoked in the past 12 months: No Number of Cigarettes Smoked Daily: 0 Hx Alcohol Use: No Drug/Substance Use Hx: No Substance Use Type: None Hx Substance Use Treatment: No <Pankaj Cartwright - Last Filed: 08/04/17 22:43> - Past Medical History Allergies/Adverse Reactions: Allergies Allergy/AdvReac Type Severity Reaction Status Date / Time No Known Allergies Allergy Verified 07/23/17 17:53 Home Medications: Ambulatory Orders Aspirin [ASA -] 81 mg PO DAILY 12/23/16 Tenofovir Disoproxil Fumarate [Viread -] 300 mg PO UTDICT 05/26/17 Lisinopril [Prinivil] 2.5 mg PO DAILY #30 tablet 05/30/17 Atorvastatin Ca [Lipitor] 10 mg PO DAILY 07/24/17 Metoprolol Succinate [Toprol Xl] 25 mg PO DAILY 07/24/17 Review of Systems - Review of Systems Is the patient limited Fijian proficient: Yes Constitutional: No: Chills, Diaphoresis, Fever HEENTM: No: Eye Pain, Blurred Vision, Tearing Respiratory: No: Cough, Orthopnea, Shortness of Breath Cardiac (ROS): No: Chest Pain, Edema, Irregular Heart Rate ABD/GI: No: Abdominal Distended, Diarrhea, Nausea : No: Burning, Dysuria, Discharge Musculoskeletal: No: Back Pain, Gout, Joint Pain Integumentary: No: Bruising, Change in Color, Dryness Neurological: No: Headache, Numbness, Paresthesia Psychiatric: No: Anxiety, Depression, Stressors Endocrine: No: Excessive Sweating, Flushing, Intolerance to Cold Hematologic/Lymphatic: No: Anemia, Blood Clots, Easy Bleeding <Pankaj Cartwright - Last Filed: 08/04/17 22:43> *Physical Exam - Vital Signs Last Vital Signs Temp Pulse Resp BP Pulse Ox 98.4 F 87 16 150/78 95 08/04/17 19:10 08/04/17 19:10 08/04/17 19:10 08/04/17 19:10 08/04/17 19:10 <Kailyn Post - Last Filed: 08/04/17 22:29> - Vital Signs Last Vital Signs Temp Pulse Resp BP Pulse Ox 98.4 F 87 16 150/78 95 08/04/17 19:10 08/04/17 19:10 08/04/17 19:10 08/04/17 19:10 08/04/17 19:10 - Physical Exam Comments: GEN: AAOx3, NAD, Lying comfortably HEENT: PERRLA, EOMi CV: S1, S2, RRR LUNG: CTABL ABD: Soft, NT, ND, normoactive BS MSK: R foot wrapped with wound vac placed, no tube kinks NEURO: CN 2-12 intact, no MSK or sensation deficits <Pankaj Cartwright - Last Filed: 08/04/17 22:43> Medical Decision Making - Medical Decision Making 61yo M with recent R digit amputations with wound vac who presented with non- working wound vac. Pt is otherwise asymptomatic. Multiple attempts have been made to fix the wound vac to no avail. Wound vac in storage is not from the same manufactor. WIll give call to Dr Hanson and let him know. Will ask patient to followup with wound care at 9am tmrw. <Pankaj Cartwright - Last Filed: 08/04/17 22:43> *DC/Admit/Observation/Transfer <Kailyn Post - Last Filed: 08/04/17 22:29> - Discharge Dispostion Admit: No <Pankaj Cartwright - Last Filed: 08/04/17 22:43> Diagnosis at time of Disposition: Encounter for management of wound VAC - Discharge Dispostion Disposition: HOME Condition at time of disposition: Stable - Referrals Referrals: Garrett Hanson MD [Staff Physician] - Call tomorrow - Patient Instructions Additional Instructions: You were seen in the Emergency Room because of wound vac management. We tried to fix your wound vac and obtain a new one but it did not work. We called Dr Hanson and he wants to see you at 9am tomorrow at the [facility] to fix your wound vac.
--- NOTE | 2017-08-04 22:32 | PDOC ---
Attending Attestation - Physicial Exam PE: 08/04/17 22:35 head ncat lungs cta b/l cvr [id number] abd nontender ext neuro [id number] <Sarah Covington - Last Filed: 08/04/17 22:35> - Resident Resident Name: WillowPankaj manriquez - ED Attending Attestation I have performed the following: I have examined & evaluated the patient, The case was reviewed & discussed with the resident, I agree w/resident's findings & plan, Exceptions are as noted - HPI HPI: 08/04/17 22:30 61 yo male presents because his wound vac is not working. He had an amputation done by Brennan head ncat lungs cta b/l cvr [id number] abd nontender ext right 3rd and 4th toe amputation neuro axox3 08/04/17 22:43 - Medical Decision Making 08/04/17 22:45 -Dr Ruthy Hanson aware of the problem ,we have not been able to replace his wpound vac and the pt will follow up with him in the office <aKilyn Post - Last Filed: 08/04/17 22:47>
== END 2017-08-04 22:49 | disposition home or self-care (01) ==
LOC: JER 18:45
DX: T85.618A Breakdown (mechanical) of other specified internal prosthetic devices, implants and grafts, initial encounter (principal); M86.9 Osteomyelitis, unspecified; Z89.421 Acquired absence of other right toe(s); I25.810 Atherosclerosis of coronary artery bypass graft(s) without angina pectoris; I10 Essential (primary) hypertension; Z95.1 Presence of aortocoronary bypass graft; Z95.5 Presence of coronary angioplasty implant and graft; E11.9 Type 2 diabetes mellitus without complications; Z79.84 Long term (current) use of oral hypoglycemic drugs; B19.10 Unspecified viral hepatitis B without hepatic coma
CPT/HCPCS: 99281-25

== ENCOUNTER 2018-01-20 10:28 | Inpatient (IN) | payer OTHER ==
[2018-01-20 10:41] VITALS: BMI 33.4
--- NOTE | 2018-01-20 10:55 | PDOC ---
History of Present Illness - General Chief Complaint: Wound Stated Complaint: REVISIT, WOUND CHECK Time Seen by Provider: 01/20/18 10:55 - History of Present Illness Initial Comments: 01/20/18 12:40 62m with omh of htn and diabetes presents to the ED for debridement of his infected right foot. He was seen yesterday at the wound clinic and was told to come to the ED. He was operated on [address] Carl wound and osteomyelitis and discharged on oral abs by Dr. Kothari. Wound is getting progressively worse. Patient had refused toe amputation at the time. Past History - Past Medical History Allergies/Adverse Reactions: Allergies Allergy/AdvReac Type Severity Reaction Status Date / Time No Known Allergies Allergy Verified 01/20/18 10:38 Home Medications: Ambulatory Orders Aspirin [ASA -] 81 mg PO DAILY 12/23/16 Tenofovir Disoproxil Fumarate [Viread -] 300 mg PO ASDIR 05/26/17 Lisinopril [Prinivil] 2.5 mg PO DAILY #30 tablet 05/30/17 Atorvastatin Ca [Lipitor] 10 mg PO DAILY 07/24/17 Metoprolol Succinate [Toprol Xl] 25 mg PO DAILY 07/24/17 Anemia: No Asthma: No Cancer: No Cardiac Disorders: Yes (BYPASS SX, CARDIAC STENTS) CVA: No COPD: No CHF: No ((A "FEW yEARS AGO)) DVT: No Dementia: No Diabetes: Yes Dialysis: Yes (M-W-F) GI Disorders: Yes (Hepatitis b) Disorders: No HTN: Yes Hypercholesterolemia: Yes 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) Seizures: No Thyroid Disease: No - Surgical History Abdominal Surgery: No Appendectomy: Yes Cardiac Surgery: Yes (4 bypass) Cholecystectomy: No Lung Surgery: No Neurologic Surgery: No Orthopedic Surgery: Yes (4 BACK SURGERIES, 3 NECK SURGERY) - Immunization History Immunization Up to Date: Yes - Suicide/Smoking/Psychosocial Hx Smoking Status: No Smoking History: Never smoked Have you smoked in the past 12 months: No Number of Cigarettes Smoked Daily: 0 Hx Alcohol Use: No Drug/Substance Use Hx: No Substance Use Type: None Hx Substance Use Treatment: No Review of Systems - Review of Systems Able to Perform ROS?: Yes Is the patient limited Lao proficient: No Constitutional: No: Symptoms Reported, Chills, Diaphoresis HEENTM: No: Symptoms Reported Respiratory: No: Symptoms reported Cardiac (ROS): No: Symptoms Reported ABD/GI: No: Symptoms Reported : No: Symptoms Reported Integumentary: Yes: Other Neurological: Yes: Other (back pain). No: Symptoms reported All Other Systems: Reviewed and Negative *Physical Exam - Vital Signs Last Vital Signs Temp Pulse Resp BP Pulse Ox 98.3 F 79 16 135/72 97 01/20/18 10:38 01/20/18 10:38 01/20/18 10:38 01/20/18 10:38 01/20/18 10:38 - Physical Exam General Appearance: Yes: Nourished, Appropriately Dressed. No: Apparent Distress HEENT: positive: EOMI, BEN, Normal ENT Inspection Respiratory/Chest: positive: Lungs Clear, Normal Breath Sounds. negative: Chest Tender, Respiratory Distress Cardiovascular: positive: Regular Rhythm, Regular Rate, S1, S2 Gastrointestinal/Abdominal: positive: Normal Bowel Sounds, Flat, Soft. negative : Tender Musculoskeletal: positive: Normal Inspection. negative: CVA Tenderness Extremity: positive: Other (opeb abcess over the plantar aspect of the right foot with copious purulent discharge and foul odor. No tenderness or pain. ) Neurologic: positive: Fully Oriented, Alert. negative: Normal Mood/Affect ( Irritable) ED Treatment Course - LABORATORY CBC & Chemistry Diagram: 01/20/18 12:00 01/20/18 12:00 Medical Decision Making - Medical Decision Making 01/20/18 13:13 62m to be admitted for debridement. Labs pending. Will need dialysis. Spoke to Taye Malloy and Bhaskar Carl. Admit to hospitalist 01/20/18 13:[address] Carl who will see the patient. *DC/Admit/Observation/Transfer Diagnosis at time of Disposition: Visit for debridement, Diabetic foot infection - Discharge Dispostion Decision to Admit order: Yes - Referrals - Patient Instructions - Post Discharge Activity
[2018-01-20] MEDS ORDERED: AMPICILLIN - 2 GM in SODIUM CHLORIDE 100 ML IVPB ONE (11:30)
[2018-01-20] MEDS ORDERED: CEFAZOLIN 1 GM in DEXTROSE 5%-WATER - 50 ML IVPB ONE (11:30)
[2018-01-20] MEDS ORDERED: ceFAZolin SODIUM 1 GM VIAL ONE (11:48)
[2018-01-20] MEDS ORDERED: AMPICILLIN SODIUM 2 GM VIAL ONE (11:48)
[2018-01-20 12:16] LABS: BASO % 0.3 % (0-2.0); EOS % 1.3 % (0-4.5); HEMATOCRIT 30.5 % (35.4-49); HEMOGLOBIN 10.3 GM/dL (11.7-16.9); LYMPH % 9.6 % (8-40); MCH 31.8 pg (25.7-33.7); MCHC 33.6 g/dl (32.0-35.9); MEAN CELL VOLUME 94.6 fl (80-96); MEAN PLT VOLUME 8.6 fl (7.5-11.1); MONO % 7.9 % (3.8-10.2); NEUT % 80.9 % (42.8-82.8); PLATELET COUNT 385 K/MM3 (134-434); RBC 3.22 M/mm3 (4.00-5.60); RDW 15.5 % (11.9-15.9); WHITE BLOOD COUNT 14.3 K/mm3 (4.0-10.0)
[2018-01-20 12:25] LABS: INR 1.39 (0.82-1.09); PROTHROMBIN TIME (PATIENT) 15.7 SEC (9.7-13.0)
[2018-01-20 12:27] LABS: ACTIVATED PTT 43.5 SECONDS (25.2-36.5)
--- NOTE | 2018-01-20 12:42 | PDOC ---
Attending Attestation - Resident Resident Name: Jelani Carlson - ED Attending Attestation I have performed the following: I have examined & evaluated the patient, The case was reviewed & discussed with the resident, I agree w/resident's findings & plan - HPI HPI: 01/20/18 12:41 62-year-old male sent from wound clinic for admission for debridement, currently undergoing wound care and antibiotics for chronic osteomyelitis. - Physicial Exam PE: 01/20/18 12:42 Afebrile here Chronic foot wound, as outlined. - Medical Decision Making 01/20/18 12:42 62-year-old male sent from wound clinic for admission for debridement of necrotic tissue from chronic diabetic foot wound and necrotic/tenderness tissue. Labs Admission
[2018-01-20 14:48] LABS: ALBUMIN 2.7 g/dl (3.4-5.0); ANION GAP 14 (8-16); BILIRUBIN,TOTAL 0.8 mg/dL (0.2-1.0); BLOOD UREA NITROGEN 53 mg/dL (7-18); CALCIUM 7.9 mg/dL (8.5-10.1); CHLORIDE 100 mmol/L (98-107); CO2 21 mmol/L (21-32); GLUCOSE,RANDOM 95 mg/dL (74-106); SGPT/ALT 7 U/L (12-78); SODIUM 135 mmol/L (136-145); TOT PROT 8.1 g/dl (6.4-8.2)
[2018-01-20 14:49] LABS: ALK PHOS 61 U/L (45-117)
--- NOTE | 2018-01-20 14:51 | PN ---
Progress Note (short form) - Note Progress Note: Renal follow up for ESRD on HD This is a 62 year old gentleman with PMhx of ESRD on Hd, Hepatitis B, PVD, LE wounds, DM who presnted with LE wounds and for possible debridement. Pt missed last dialysis on Friday. Pt states that he was told to come into the hospital for a procedure today. Denies any fever, chills. No N/V/D. Clary any SOB, chest pain. No pain. Appetite is good. Makes urine despite being on dialysis. Home Medications Medication Instructions Recorded Aspirin [ASA -] 81 mg PO DAILY 12/23/16 Tenofovir Disoproxil Fumarate 300 mg PO ASDIR 05/26/17 [Viread -] Lisinopril [Prinivil] 2.5 mg PO DAILY #30 tablet 05/30/17 Atorvastatin Ca [Lipitor] 10 mg PO DAILY 07/24/17 Metoprolol Succinate [Toprol Xl] 25 mg PO DAILY 07/24/17 Vital Signs Temperature 98.3 F 01/20/18 10:38 Pulse Rate 79 01/20/18 10:38 Respiratory Rate 16 01/20/18 10:38 Blood Pressure 135/72 01/20/18 10:38 O2 Sat by Pulse Oximetry (%) 97 01/20/18 10:38 Intake & Output 01/17/18 01/18/18 01/19/18 01/20/18 23:59 23:59 23:59 23:59 Weight 99.79 kg NAD awake and alert neck supple, no jvd RRR, No M/R CTA, ,no rales or wheeze soft NT/ND, no hepatomegaly trace LE edema both feet in dressings CBC, BMP 01/20/18 12:00 BMP is pending Current Medications Epoetin Jerald (Epogen -) 10,000 unit IVPUSH ONCE ONE Stop: 01/20/18 14:42 Sodium Chloride (Normal Saline -) 250 mls @ 3,000 mls/hr IV PRN PRN PRN Reason: Hypotension during Dialysis Stop: 01/21/18 14:41 Cefazolin Sodium 2 gm/ (Dextrose) 50 mls @ 100 mls/hr IVPB ONCE ONE Stop: 01/20/18 15:11 62 year old gentleman with PMhx of ESRD on Hd, Hepatitis B, PVD, LE wounds, DM who presnted with LE wounds and for possible debridement. Pt missed last dialysis on Friday. #ESRD on HD #LE wounds #Osteomylitis #Chronic Anemia #DM #Hypertension #Hepatitis B For dialysis today with UF as tolerated BMP pending, aill adjust bath bsaed on K levels Will redose Ancef post dialyiss Podiatary and Vascular consult will continue MARK with HD ID follow up sliding scale insulin as needed thank you Will follow Jose Zavaleta DO
[2018-01-20 14:58] LABS: CREATININE 9.4 mg/dL (0.7-1.3); POTASSIUM 6.4 mmol/L (3.5-5.1); SGOT/AST 32 U/L (15-37)
--- NOTE | 2018-01-20 14:58 | EKG ---
Test Reason : Blood Pressure : / mmHG Vent. Rate : 072 BPM Atrial Rate : 072 BPM P-R Int : 180 ms QRS Dur : 088 ms QT Int : 458 ms P-R-T Axes : 060 009 015 degrees QTc Int : 501 ms NORMAL SINUS RHYTHM POSSIBLE LEFT ATRIAL ENLARGEMENT ANTEROSEPTAL INFARCT (CITED ON OR BEFORE 29-MAY-2017) ABNORMAL ECG Confirmed by Nitin Hernández MD ([id number]) on 01/20/2018 2:58:19 PM Referred By: Confirmed By:Nitin Hernández MD
--- NOTE | 2018-01-20 15:01 | CON.ID ---
Consult Consult Specialty:: infectious diseases Reason for Consultation:: cellulittis and necrotic rt foot,wound infection - History of Present Illness Chief Complaint: swelling of the foot and erythema History of Present Illness: patient presents to ER with cellulitis of his right foot. patient known to me from last admission and his foot was abd time and needed amputation which he had adamantly refused now he comes with worsening of the foot and his foot looks worse patient was told that his leg is worse and discussing with me he does not think he will be in the hospital. he says he is waiting for the sport psychologist to come and tell him the next step but he thinks he is going to the or for debridement patients wound was infected and he was send home with abx which covered his infection now he has foul wound which is smelling and worse and i think he needs amputation patient still refusing he is on abx now during dialysis - History Source History Provided By: Patient Limitations to Obtaining History: No Limitations - Past Medical History Cardio/Vascular: Yes: CAD, HTN, Hyperlipdemia Pulmonary: Yes: COPD Hepatobiliary: Yes: Hepatitis B Renal/: Yes: Renal Failure, Renal Inusuff, Hemodialysis Infectious Disease: Yes: Other (Hepatitis B) Musculoskeletal: Yes: Chronic low back pain, Other (back pain) Endocrine: Yes: Diabetes Mellitus - Past Surgical History Past Surgical History: Yes: Laminectomy, CABG - Alcohol/Substance Use Hx Alcohol Use: No - Smoking History Smoking history: Never smoked Have you smoked in the past 12 months: No Aproximately how many cigarettes per day: 0 - Social History ADL: Independent History of Recent Travel: Yes ([place] x 1 wk) Home Medications - Allergies Allergies/Adverse Reactions: Allergies Allergy/AdvReac Type Severity Reaction Status Date / Time No Known Allergies Allergy Verified 01/20/18 10:38 - Home Medications Home Medications: Ambulatory Orders Aspirin [ASA -] 81 mg PO DAILY 12/23/16 Tenofovir Disoproxil Fumarate [Viread -] 300 mg PO ASDIR 05/26/17 Lisinopril [Prinivil] 2.5 mg PO DAILY #30 tablet 05/30/17 Atorvastatin Ca [Lipitor] 10 mg PO DAILY 07/24/17 Metoprolol Succinate [Toprol Xl] 25 mg PO DAILY 07/24/17 Family Disease History - Family Disease History Family Disease History: CA: Father, Mother (ovarian) Review of Systems - Review of Systems Constitutional: reports: No Symptoms Eyes: reports: No Symptoms HENT: reports: No Symptoms Neck: reports: No Symptoms Cardiovascular: reports: No Symptoms Respiratory: reports: No Symptoms Gastrointestinal: reports: No Symptoms Genitourinary: reports: No Symptoms Musculoskeletal: reports: Other Integumentary: reports: Change in Color, Erythema, Wound, Other (draining) Neurological: reports: No Symptoms Hematology/Lymphatic: reports: No Symptoms Psychiatric: reports: No Symptoms Physical Exam Vital Signs: Vital Signs Temperature 98.3 F 01/20/18 10:38 Pulse Rate 79 01/20/18 10:38 Respiratory Rate 16 01/20/18 10:38 Blood Pressure 135/72 01/20/18 10:38 O2 Sat by Pulse Oximetry (%) 97 01/20/18 10:38 Constitutional: Yes: Well Nourished, Anxious, Mild Distress Eyes: Yes: Conjunctiva Clear Cardiovascular: Yes: Regular Rate and Rhythm Respiratory: Yes: Regular, CTA Bilaterally Gastrointestinal: Yes: Normal Bowel Sounds, Soft Musculoskeletal: Yes: Other Extremities: Yes: Erythema (rt foot with draiange) Integumentary: Yes: Erythema, Other (wound draianing) Wound/Incision: Yes: Dressing Dry and Intact, Draining, Other (Extremity: positive: Other (wound over the plantar aspect of the right foot with copious purulent discharge and foul odor. )) Neurological: Yes: Alert, Oriented Psychiatric: Yes: Alert, Oriented Labs: CBC, BMP 01/20/18 12:00 01/20/18 13:59 Imaging - Results Chest X-ray: Report Reviewed, Image Reviewed Assessment/Plan Problem List - Problems (1) Foot pain, right Code(s): M79.671 - PAIN IN RIGHT FOOT (2) Amputated toe Code(s): Z89.429 - ACQUIRED ABSENCE OF OTHER TOE(S), UNSPECIFIED SIDE (3) Atrial fibrillation Code(s): I48.91 - UNSPECIFIED ATRIAL FIBRILLATION (4) Cellulitis Code(s): L03.90 - CELLULITIS, UNSPECIFIED Qualifiers: (5) Diabetes Code(s): E11.9 - TYPE 2 DIABETES MELLITUS WITHOUT COMPLICATIONS (6) ESRD (end stage renal disease) on dialysis Code(s): N18.6 - END STAGE RENAL DISEASE; Z99.2 - DEPENDENCE ON RENAL DIALYSIS 7 necrosis of the foot plan continue abx during dialysis will start him on iv abx from tomorrow rest continue current mgmt will also stop abx as per dialysis
--- NOTE | 2018-01-20 15:08 | HP ---
CHIEF COMPLAINT: Right toe/foot pain Sales Operations Consultant: Dr. Carl HISTORY OF PRESENT ILLNESS: 62 year-old male with a PMH significant for HTN, HLD, CAD s/p CABG s/p stents, PVD, osteomyelitis, NIDDM, Hep B, and ESRD on HD. Admitted to [facility] 01/05-01/16/18 for I&D of gangrenous abscess of right foot. Bone SPECT showed osteo two toes on right and one toe on left and cultures grew MSSA and enterococcus. Patient was discharged on cefazolin (with HD sessions) and PO ampicillin, HBO, wound vac , and f/u at Wound Clinic. Patient was seen at Wound Clinic yesterday and right great toe wound was observed as worsening with purulent drainage. He was told to come to the ED which he did today. Missed last HD session on Friday. ER course was notable for: (1) WBC 14.3, afebrile (2) cefazolin x 1, ampicillin x 1 Recent Travel: No PAST MEDICAL HISTORY: Hypertension Hyperlipidemia Coronary artery disease Peripheral vascular disease Osteomyelitis toes NIDDM Hepatitis B ESRD on HD PAST SURGICAL HISTORY: Coronary bypass Cardiac stent placement Laminectomies (cervical x 2, lumbar x 2) Social History: Smoking: denies Alcohol: rare Drugs: denies Family History: Father lung cancer, mother ovarian cancer Allergies No Known Allergies Allergy (Verified 01/20/18 10:38) HOME MEDICATIONS: Home Medications Medication Instructions Recorded Aspirin [ASA -] 81 mg PO DAILY 12/23/16 Tenofovir Disoproxil Fumarate 300 mg PO ASDIR 05/26/17 [Viread -] Lisinopril [Prinivil] 2.5 mg PO DAILY #30 tablet 05/30/17 Atorvastatin Ca [Lipitor] 10 mg PO DAILY 07/24/17 Metoprolol Succinate [Toprol Xl] 25 mg PO DAILY 07/24/17 REVIEW OF SYSTEMS: patient refuses to answer questions PHYSICAL EXAMINATION Vital Signs - 24 hr 01/20/18 10:38 Temperature 98.3 F Pulse Rate 79 Respiratory 16 Rate Blood Pressure 135/72 O2 Sat by Pulse 97 Oximetry (%) GENERAL: Awake, alert. Refuses to answer questions. Does not appear to be in acute distress. LOWER EXTREMITIES: both feet wrapped with gauze, c/d/i. Patient allowed only visual inspection. Right great toe is severely erythematous, swollen and warm to touch. Other toes could not be visualized Laboratory Results - last 24 hr 01/20/18 01/20/18 01/20/18 12:00 12:00 12:00 WBC 14.3 H RBC 3.22 L Hgb 10.3 L Hct 30.5 L MCV 94.6 MCH 31.8 MCHC 33.6 RDW 15.5 Plt Count 385 MPV 8.6 Absolute Neuts (auto) 11.6 Neutrophils % 80.9 Lymphocytes % 9.6 Monocytes % 7.9 Eosinophils % 1.3 Basophils % 0.3 Nucleated RBC % 0 PT with INR 15.70 H INR 1.39 H PTT (Actin FS) 43.5 H D Sodium Cancelled Potassium Cancelled Chloride Cancelled Carbon Dioxide Cancelled Anion Gap Cancelled BUN Cancelled Creatinine Cancelled Creat Clearance w eGFR Cancelled Random Glucose Cancelled Calcium Cancelled Total Bilirubin Cancelled AST Cancelled ALT Cancelled Alkaline Phosphatase Cancelled Total Protein Cancelled Albumin Cancelled Blood Type Antibody Screen 01/20/18 01/20/18 12:00 13:59 WBC RBC Hgb Hct MCV MCH MCHC RDW Plt Count MPV Absolute Neuts (auto) Neutrophils % Lymphocytes % Monocytes % Eosinophils % Basophils % Nucleated RBC % PT with INR INR PTT (Actin FS) Sodium 135 L Potassium 6.4 H* D Chloride 100 Carbon Dioxide 21 D Anion Gap 14 BUN 53 H Creatinine 9.4 H* Creat Clearance w eGFR 5.67 Random Glucose 95 D Calcium 7.9 L Total Bilirubin 0.8 AST 32 D ALT 7 L D Alkaline Phosphatase 61 Total Protein 8.1 D Albumin 2.7 L Blood Type Cancelled Antibody Screen Cancelled ASSESSMENT/PLAN 62 year-old male with a PMH significant for HTN, HLD, CAD s/p CABG s/p stents, PVD, osteomyelitis of multiple toes, NIDDM, Hep B, and ESRD on HD. Admitted for purulent right toe infection. MSSA and Enterococcus cellulitis right foot/draining wound Peripheral vascular disease Osteomyelitis --01/12 Bone SPECT: osteo right first metatarsal head, right second metatarsal v. middle cuneiform, and left second toe --continue cefazolin and ampicillin --podiatry recommending surgery, patient wants to hear from vascular ESRD on HD --HD session on 01/20 terminated after 2 hours --patient refusing renal diet --1.2L fluid restriction Hypertension --BP stable --continue lisinopril, Toprol XL Hyperlipidemia --continue Lipitor Coronary artery disease s/p CABG s/p stents --04/2017 Echo: LV function normal; RV normal; LAE; mild MR; mild TR; moderate pHTN; mild AI; trace PI --ECG: sinus rhythm @ 73bpm --continue lisinopril, Toprol XL, Lipitor Hepatitis B --continue Viread NIDDM --Novolog sliding scale coverage FEN Fluids: PO intake adequate Electrolytes: replete as indicated Nutrition: diabetic, low sodium; NPO after midnight DVT prophylaxis: hold chemical prophylaxis for surgery tomorrow Physical therapy Dispo: continues to require inpatient care. Full code. Visit type - Emergency Visit Emergency Visit: Yes ED Registration Date: 01/20/18 Care time: The patient presented to the Emergency Department on the above date and was hospitalized for further evaluation of their emergent condition. - New Patient This patient is new to me today: Yes Date on this admission: 01/21/18 - Critical Care Critical Care patient: No Hospitalist Screening - Colonoscopy Questionnaire Colonoscopy Questionnaire: Colonoscopy Questionnaire - Patient: 50 - 75 years old and never had a screening colonoscopy: Unknown History of colon or rectal polyps, or CA: Unknown History of IBD, Crohn's disease or UC: Unknown History of abdominal radiation therapy as a child: Unknown - Relative: 1 with colon or rectal CA, or polyps at age 60 or younger: Unknown Colon or rectal CA diagnosed at age 45 or younger: Unknown Multiple relatives with colon or rectal CA: Unknown - Outcome: Screening Result: Negative Screen
[2018-01-20] MEDS ORDERED: EPOETIN ALFA 10,000 UNIT/1 ML VIAL IVPUSH ONE (16:00)
[2018-01-20] MEDS ORDERED: SODIUM CHLORIDE 250 ML IV PRN (16:02)
[2018-01-20] MEDS: CEFAZOLIN 2 GM/D5W 2 GM/50 ML ML IVPB ONE ×2 (16:57→19:34)
[2018-01-20] MEDS ORDERED: HEPARIN NA (PORCINE) 5,000 UNITS/ML 1ML VIAL SQ SCH (19:45)
--- NOTE | 2018-01-20 21:42 | CONSULT ---
Consult - text type - Consultation Consultation Note: Pt presents to ER with cellulitis of his right foot. Seen today in dialysis. Does not want to amputate part of foot that is necrotic and infected. Very nasty and adamant about this. tmax 98.1, vss +cellulitis right foot, +draining wound right foot, -mal odor, -tender, wbc=14.3 , +necrotic tissue, cellulitis right foot draining wound Explained to patient once again. Removal of infected bone and soft tissue is best route at this point. Still refusing this. Wants Dr. Hanson to evaluate his foot and see what he thinks. Will consult Dr. Hanson for his opinion. At this point the patient was advised he runs the risk of sepsis . He will decide after he speaks to Dr. Hanson and gets his input. Betadine dressing change done. Santyl to wound left foot. Betadine dressing to right foot. Will follow. will discuss with Dr. Kothari as well. culture pending. xray right foot to be ordered.
[2018-01-20] MEDS: INSULIN SLIDING SCALE (NOVOLOG) 1 VIAL SQ SCH (22:06)
[2018-01-21] MEDS: INSULIN SLIDING SCALE (NOVOLOG) 1 VIAL SQ SCH ×4 (06:38→21:46)
--- NOTE | 2018-01-21 11:02 | PN ---
Physical Exam: SUBJECTIVE: Patient seen and examined. More cooperative. OBJECTIVE: Vital Signs Period Temp Pulse Resp BP Sys/Palafox Pulse Ox Last 24 Hr 98.1 F-99 F 78-97 18-20 126-159/48-94 96-98 GENERAL: The patient is awake, alert, and fully oriented, in no acute distress. LUNGS: Breath sounds equal, clear to auscultation bilaterally, no wheezes, no crackles, no accessory muscle use. HEART: Regular rate and rhythm, S1, S2 ABDOMEN: Soft, nontender, nondistended, LOWER EXTREMITIES: both feet wrapped with gauze, c/d/i. Patient allowed only visual inspection. Right great toe is severely erythematous, swollen and warm to touch. Other toes could not be visualized Laboratory Results - last 24 hr 01/20/18 01/20/18 01/20/18 12:00 12:00 12:00 WBC 14.3 H RBC 3.22 L Hgb 10.3 L Hct 30.5 L MCV 94.6 MCH 31.8 MCHC 33.6 RDW 15.5 Plt Count 385 MPV 8.6 Absolute Neuts (auto) 11.6 Neutrophils % 80.9 Lymphocytes % 9.6 Monocytes % 7.9 Eosinophils % 1.3 Basophils % 0.3 Nucleated RBC % 0 PT with INR 15.70 H INR 1.39 H PTT (Actin FS) 43.5 H D Sodium Cancelled Potassium Cancelled Chloride Cancelled Carbon Dioxide Cancelled Anion Gap Cancelled BUN Cancelled Creatinine Cancelled Creat Clearance w eGFR Cancelled POC Glucometer Random Glucose Cancelled Calcium Cancelled Total Bilirubin Cancelled AST Cancelled ALT Cancelled Alkaline Phosphatase Cancelled Total Protein Cancelled Albumin Cancelled Blood Type Antibody Screen 01/20/18 01/20/18 01/20/18 12:00 13:59 22:04 WBC RBC Hgb Hct MCV MCH MCHC RDW Plt Count MPV Absolute Neuts (auto) Neutrophils % Lymphocytes % Monocytes % Eosinophils % Basophils % Nucleated RBC % PT with INR INR PTT (Actin FS) Sodium 135 L Potassium 6.4 H* D Chloride 100 Carbon Dioxide 21 D Anion Gap 14 BUN 53 H Creatinine 9.4 H* Creat Clearance w eGFR 5.67 POC Glucometer 155 Random Glucose 95 D Calcium 7.9 L Total Bilirubin 0.8 AST 32 D ALT 7 L D Alkaline Phosphatase 61 Total Protein 8.1 D Albumin 2.7 L Blood Type Cancelled Antibody Screen Cancelled 01/21/18 06:37 WBC RBC Hgb Hct MCV MCH MCHC RDW Plt Count MPV Absolute Neuts (auto) Neutrophils % Lymphocytes % Monocytes % Eosinophils % Basophils % Nucleated RBC % PT with INR INR PTT (Actin FS) Sodium Potassium Chloride Carbon Dioxide Anion Gap BUN Creatinine Creat Clearance w eGFR POC Glucometer 124 Random Glucose Calcium Total Bilirubin AST ALT Alkaline Phosphatase Total Protein Albumin Blood Type Antibody Screen Active Medications Generic Name Dose Route Start Last Admin Trade Name Mariel PRN Reason Stop Dose Admin Atorvastatin Calcium 10 mg 01/21/18 22:00 Lipitor - PO HS [facility] Collagenase 1 applic 01/21/18 10:00 Santyl - TP DAILY [facility] Protocol Heparin Sodium (Porcine) 5,000 unit 01/21/18 14:00 Heparin - SQ TID [facility] Sodium Chloride 250 mls @ 3,000 mls/hr 01/20/18 16:02 Normal Saline - IV 01/21/18 16:01 PRN PRN Hypotension during Dialysis Insulin Aspart 1 vial 01/20/18 22:00 01/21/18 06:38 Novolog Vial Sliding Scale - SQ Not Given ACHS [facility] Protocol Lisinopril 2.5 mg 01/21/18 10:00 Prinivil PO DAILY [facility] Metoprolol Succinate 25 mg 01/21/18 10:00 Toprol Xl - PO DAILY [facility] Tenofovir Disoproxil Fumarate 300 mg 01/21/18 10:00 Viread - PO DAILY [facility] ASSESSMENT/PLAN: 62 year-old male with a PMH significant for HTN, HLD, CAD s/p CABG s/p stents, PVD, osteomyelitis of multiple toes, NIDDM, Hep B, and ESRD on HD. Admitted for purulent right toe infection. MSSA and Enterococcus cellulitis right foot/draining wound Peripheral vascular disease Osteomyelitis --01/12 Bone SPECT: osteo right first metatarsal head, right second metatarsal v. middle cuneiform, and left second toe --per ID, cefazolin and ampicillin d/c'd; start Zosyn (day #1) --podiatry and vascular recommending surgery, patient agrees; scheduled for tomorrow ESRD on HD --HD session on 01/20 terminated after 2 hours --patient refusing renal diet --1.2L fluid restriction Hypertension --BP stable --continue lisinopril, Toprol XL Hyperlipidemia --continue Lipitor Coronary artery disease s/p CABG s/p stents --04/2017 Echo: LV function normal; RV normal; LAE; mild MR; mild TR; moderate pHTN; mild AI; trace PI --ECG: sinus rhythm @ 73bpm --continue lisinopril, Toprol XL, Lipitor Hepatitis B --continue Viread NIDDM --Novolog sliding scale coverage FEN Fluids: PO intake adequate Electrolytes: replete as indicated Nutrition: diabetic, low sodium; NPO after midnight DVT prophylaxis: hold chemical prophylaxis for surgery tomorrow Physical therapy Dispo: continues to require inpatient care. Full code. Visit type - Emergency Visit Emergency Visit: Yes ED Registration Date: 01/20/18 Care time: The patient presented to the Emergency Department on the above date and was hospitalized for further evaluation of their emergent condition. - New Patient This patient is new to me today: No - Critical Care Critical Care patient: No
[2018-01-21] MEDS: metoPROLOL SUCCINATE 25 MG TAB.SR.24H (FP) PO SCH (11:06)
[2018-01-21] MEDS: TENOFOVIR DISOPROXIL FUMARATE 300 MG TABLET PO SCH ×2 (11:06→11:27)
[2018-01-21] MEDS: LISINOPRIL 5 MG TABLET (FP) PO SCH (11:07)
[2018-01-21] MEDS ORDERED: PT OWN MED DRAWER 7, Y5N ONE ×3 (11:13→18:03)
--- NOTE | 2018-01-21 11:46 | PN ---
Progress Note, Physician History of Present Illness: no complaints awaiting to see vascular surgeon looks comfortable - Current Medication List Current Medications: Active Medications Atorvastatin Calcium (Lipitor -) 10 mg PO HS [facility] Collagenase (Santyl -) 1 applic TP DAILY [facility]; Protocol Heparin Sodium (Porcine) (Heparin -) 5,000 unit SQ TID [facility] Sodium Chloride (Normal Saline -) 250 mls @ 3,000 mls/hr IV PRN PRN PRN Reason: Hypotension during Dialysis Stop: 01/21/18 16:01 Piperacillin Sod/Tazobactam (Sod 2.25 gm/ Dextrose) 50 mls @ 100 mls/hr IVPB Q8H-IV [facility]; Protocol Insulin Aspart (Novolog Vial Sliding Scale -) 1 vial SQ ACHS [facility]; Protocol Last Admin: 01/21/18 06:38 Dose: Not Given Lisinopril (Prinivil) 2.5 mg PO DAILY [facility] Last Admin: 01/21/18 11:07 Dose: 2.5 mg Metoprolol Succinate (Toprol Xl -) 25 mg PO DAILY [facility] Last Admin: 01/21/18 11:06 Dose: 25 mg Tenofovir Disoproxil Fumarate (Viread -) 300 mg PO DAILY [facility] Last Admin: 01/21/18 11:27 Dose: Not Given - Objective Vital Signs: Vital Signs Temperature 98.9 F 01/20/18 23:28 Pulse Rate 78 01/21/18 06:00 Respiratory Rate 20 01/21/18 06:00 Blood Pressure 143/87 01/21/18 06:00 O2 Sat by Pulse Oximetry (%) 98 01/20/18 21:00 Constitutional: Yes: No Distress, Calm Cardiovascular: Yes: Regular Rate and Rhythm Respiratory: Yes: Regular, CTA Bilaterally Gastrointestinal: Yes: Normal Bowel Sounds, Soft Musculoskeletal: Yes: WNL Extremities: Yes: Other Wound/Incision: Yes: Dressing Dry and Intact, Other (wounds as described in h and p and the condition of the leg) Neurological: Yes: Alert, Oriented Psychiatric: Yes: Alert Labs: CBC, BMP 01/20/18 12:00 01/20/18 13:59 INR, PTT INR 1.39 (0.82-1.09) H 01/20/18 12:00 Assessment/Plan Problem List - Problems (1) Foot pain, right Code(s): M79.671 - PAIN IN RIGHT FOOT (2) Amputated toe Code(s): Z89.429 - ACQUIRED ABSENCE OF OTHER TOE(S), UNSPECIFIED SIDE (3) Atrial fibrillation Code(s): I48.91 - UNSPECIFIED ATRIAL FIBRILLATION (4) Cellulitis Code(s): L03.90 - CELLULITIS, UNSPECIFIED Qualifiers: (5) Diabetes Code(s): E11.9 - TYPE 2 DIABETES MELLITUS WITHOUT COMPLICATIONS (6) ESRD (end stage renal disease) on dialysis Code(s): N18.6 - END STAGE RENAL DISEASE; Z99.2 - DEPENDENCE ON RENAL DIALYSIS 7 necrosis of the foot plan stop abx during dialysis for now wound cx wound care final plan awaited rest as per the team
[2018-01-21 11:58] LABS: BASO % 1.2 % (0-2.0); EOS % 2.2 % (0-4.5); HEMATOCRIT 34.2 % (35.4-49); HEMOGLOBIN 11.3 GM/dL (11.7-16.9); LYMPH % 11.6 % (8-40); MCH 31.5 pg (25.7-33.7); MCHC 33.2 g/dl (32.0-35.9); MEAN CELL VOLUME 95.1 fl (80-96); MEAN PLT VOLUME 8.7 fl (7.5-11.1); MONO % 7.2 % (3.8-10.2); NEUT % 77.8 % (42.8-82.8); PLATELET COUNT 410 K/MM3 (134-434); RDW 15.7 % (11.9-15.9); WHITE BLOOD COUNT 10.3 K/mm3 (4.0-10.0)
[2018-01-21 12:22] LABS: ALBUMIN 2.7 g/dl (3.4-5.0); ALK PHOS 64 U/L (45-117); ANION GAP 10 (8-16); BILIRUBIN,TOTAL 0.5 mg/dL (0.2-1.0); BLOOD UREA NITROGEN 35 mg/dL (7-18); CALCIUM 8.1 mg/dL (8.5-10.1); CHLORIDE 102 mmol/L (98-107); CO2 29 mmol/L (21-32); CREATININE 7.2 mg/dL (0.7-1.3); GLUCOSE,RANDOM 125 mg/dL (74-106); MAGNESIUM 2.3 mg/dL (1.8-2.4); POTASSIUM 4.7 mmol/L (3.5-5.1); SGOT/AST 13 U/L (15-37); SGPT/ALT 7 U/L (12-78); SODIUM 141 mmol/L (136-145); TOT PROT 7.9 g/dl (6.4-8.2)
[2018-01-21] MEDS ORDERED: SODIUM CHLORIDE 250 ML IV PRN (12:55)
--- NOTE | 2018-01-21 12:55 | PN ---
Progress Note (short form) - Note Progress Note: Renal follow up for ESRD on HD Pt seen and examined at the bedside s/p dialysis yesterday but pt terminated Tx after 2 hours no sob, chest pain, abd pain Vital Signs Temperature 98.9 F 01/20/18 23:28 Pulse Rate 78 01/21/18 06:00 Respiratory Rate 20 01/21/18 06:00 Blood Pressure 143/87 01/21/18 06:00 O2 Sat by Pulse Oximetry (%) 98 01/20/18 21:00 Intake & Output 01/18/18 01/19/18 01/20/18 01/21/18 23:59 23:59 23:59 23:59 Intake Total 300 50 Balance 300 50 Weight 99.79 kg awake and alert neck supple, no jvd RRR, No M/R CTA, ,no rales or wheeze soft NT/ND, no hepatomegaly trace LE edema both feet in dressings CBC, BMP 01/21/18 11:08 01/21/18 11:08 Current Medications Atorvastatin Calcium (Lipitor -) 10 mg PO HS [facility] Collagenase (Santyl -) 1 applic TP DAILY [facility]; Protocol Heparin Sodium (Porcine) (Heparin -) 5,000 unit SQ TID [facility] Sodium Chloride (Normal Saline -) 250 mls @ 3,000 mls/hr IV PRN PRN PRN Reason: Hypotension during Dialysis Stop: 01/21/18 16:01 Piperacillin Sod/Tazobactam (Sod 2.25 gm/ Dextrose) 50 mls @ 100 mls/hr IVPB Q8H-IV [facility]; Protocol Insulin Aspart (Novolog Vial Sliding Scale -) 1 vial SQ ACHS [facility]; Protocol Last Admin: 01/21/18 12:25 Dose: Not Given Lactobacillus Acidophilus (Bacid -) 1 tab PO DAILY [facility] Lisinopril (Prinivil) 2.5 mg PO DAILY [facility] Last Admin: 01/21/18 11:07 Dose: 2.5 mg Metoprolol Succinate (Toprol Xl -) 25 mg PO DAILY [facility] Last Admin: 01/21/18 11:06 Dose: 25 mg Tenofovir Disoproxil Fumarate (Viread -) 300 mg PO DAILY [facility] Last Admin: 01/21/18 11:27 Dose: Not Given 62 year old gentleman with PMhx of ESRD on Hd, Hepatitis B, PVD, LE wounds, DM who presnted with LE wounds and for possible debridement. Pt missed last dialysis on Friday. #ESRD on HD #LE wounds #Osteomylitis #Chronic Anemia #DM #Hypertension #Hepatitis B s/p dialysis yesterday, no acute need for BULB SORTER today (K is ok on labs today) Renal diet, 1.2L fluid restriction continue Abx as per ID will give MARK with HD Podiatry, ID and vascular follow up Jose Zavaleta DO
[2018-01-21] MEDS ORDERED: HEPARIN NA (PORCINE) 5,000 UNITS/ML 1ML VIAL SQ SCH (14:00)
[2018-01-21] MEDS: COLLAGENASE CLOSTRIDIUM HIST. 30 GRAMS TUBE TP SCH (14:01)
[2018-01-21] MEDS: PIPERACILLIN/TAZOB 2.25 GM 2.25 GM in DEXTROSE 5%-WATER - 50 ML IVPB SCH ×2 (15:14→18:11)
[2018-01-21] MEDS: LACTOBACILLUS ACIDOPHILUS 1 TABLET PO SCH (15:25)
--- NOTE | 2018-01-21 15:49 | PN ---
Progress Note (short form) - Note Progress Note: Patient was seen this morning. More open to procedure today but still wants Dr. howe to agree. tmax 98.4, vss +cellulitis right foot, +draining wound right foot, -mal odor, -tender, wbc=10.3 , +necrotic tissue, cellulitis right foot draining wound Explained to patient once again. Removal of infected bone and soft tissue is best route at this point. Wants Dr. Howe to evaluate his foot and see what he thinks. Awaiting Dr. Howe consult. He will decide after he speaks to Dr. Howe and gets his input. Santyl to wound left foot. Betadine dressing to right foot. Will follow. will discuss with Dr. Kothari as well. NPO after midnight. Consent for debridement of bone and soft tissue and possible 1st ray amputaton. Does not want TMA. Patient fully understood all risks benefits and alternatives. Verbally consented to surgery as long as Dr. Howe is in agreement. Medical clearance.
[2018-01-21] MEDS ORDERED: PIPERACILLIN/TAZOBACTAM 2.25 GM VIAL IVPB ONE (16:33)
[2018-01-21] MEDS ORDERED: DEXTROSE 5%-WATER - 50 ML IVPB ONE (16:34)
--- NOTE | 2018-01-21 17:08 | PN ---
Progress Note (short form) - Note Progress Note: VAscular Surgery Pt seen and examined. Dressing changed. Right foot with great toe cellulitis. Ulcer on base of great toe with joint space exposed. Wound is 100% slough with bone exposed. Best route would be to do debridement and possible ray amputation. Would not do TMA Pt agrees that to procedure. Cleared for podiatry intervention for vascular Standpoint. Garrett Hanson DO
[2018-01-21] MEDS ORDERED: MAG HYDROX/AL HYDROX/SIMETH 30 ML UNIT-DOSE CUP PO PRN (17:09)
[2018-01-21] MEDS: PANTOPRAZOLE 40 MG TABLET (FP) PO SCH (18:10)
[2018-01-21] MEDS ORDERED: ATORVASTATIN CA 10 MG TABLET (FP) PO SCH (22:00)
[2018-01-22] MEDS ORDERED: PIPERACILLIN/TAZOBACTAM 2.25 GM VIAL IVPB ONE ×3 (01:05→19:50)
[2018-01-22] MEDS ORDERED: DEXTROSE 5%-WATER - 50 ML IVPB ONE ×3 (01:05→19:51)
[2018-01-22] MEDS: PIPERACILLIN/TAZOB 2.25 GM 2.25 GM in DEXTROSE 5%-WATER - 50 ML IVPB SCH ×4 (01:10→20:03)
[2018-01-22] MEDS: INSULIN SLIDING SCALE (NOVOLOG) 1 VIAL SQ SCH ×4 (06:21→21:27)
[2018-01-22] MEDS: LACTOBACILLUS ACIDOPHILUS 1 TABLET PO SCH ×2 (08:07→13:28)
[2018-01-22 09:10] LABS: HEMATOCRIT 29.3 % (35.4-49); HEMOGLOBIN 9.8 GM/dL (11.7-16.9); MCH 31.4 pg (25.7-33.7); MCHC 33.4 g/dl (32.0-35.9); MEAN CELL VOLUME 94.1 fl (80-96); MEAN PLT VOLUME 8.8 fl (7.5-11.1); PLATELET COUNT 360 K/MM3 (134-434); RBC 3.11 M/mm3 (4.00-5.60); RDW 15.7 % (11.9-15.9); WHITE BLOOD COUNT 9.7 K/mm3 (4.0-10.0)
[2018-01-22 09:33] LABS: ANION GAP 11 (8-16); BLOOD UREA NITROGEN 39 mg/dL (7-18); CALCIUM 7.2 mg/dL (8.5-10.1); CHLORIDE 102 mmol/L (98-107); CO2 26 mmol/L (21-32); GLUCOSE,RANDOM 119 mg/dL (74-106); PHOSPHOROUS 7.4 mg/dL (2.5-4.9); POTASSIUM 4.2 mmol/L (3.5-5.1); SODIUM 139 mmol/L (136-145)
[2018-01-22] MEDS ORDERED: PT OWN MED DRAWER 7, Y5N ONE (13:15)
[2018-01-22] MEDS: COLLAGENASE CLOSTRIDIUM HIST. 30 GRAMS TUBE TP SCH (13:21)
[2018-01-22] MEDS: LISINOPRIL 5 MG TABLET (FP) PO SCH (13:28)
[2018-01-22] MEDS: TENOFOVIR DISOPROXIL FUMARATE 300 MG TABLET PO SCH (13:28)
[2018-01-22] MEDS: metoPROLOL SUCCINATE 25 MG TAB.SR.24H (FP) PO SCH (13:28)
[2018-01-22] MEDS: PANTOPRAZOLE 40 MG TABLET (FP) PO SCH (13:28)
--- NOTE | 2018-01-22 14:49 | PN ---
Progress Note, Physician History of Present Illness: patient with rt toe cellulittis with bone exposed patient has agreed for surgery will be going to the or today - Current Medication List Current Medications: Active Medications Al Hydroxide/Mg Hydroxide (Mylanta Oral Suspension -) 30 ml PO Q6H PRN PRN Reason: DYSPEPSIA Atorvastatin Calcium (Lipitor -) 10 mg PO HS [facility] Last Admin: 01/21/18 21:46 Dose: 10 mg Collagenase (Santyl -) 1 applic TP DAILY [facility]; Protocol Last Admin: 01/22/18 13:21 Dose: Not Given Piperacillin Sod/Tazobactam (Sod 2.25 gm/ Dextrose) 50 mls @ 100 mls/hr IVPB Q8H-IV [facility]; Protocol Last Admin: 01/22/18 13:28 Dose: 100 mls/hr Sodium Chloride (Normal Saline -) 250 mls @ 3,000 mls/hr IV PRN PRN PRN Reason: Hypotension during Dialysis Stop: 01/22/18 12:55 Insulin Aspart (Novolog Vial Sliding Scale -) 1 vial SQ ACHS [facility]; Protocol Last Admin: 01/22/18 13:20 Dose: Not Given Lactobacillus Acidophilus (Bacid -) 1 tab PO DAILY [facility] Last Admin: 01/22/18 13:28 Dose: Not Given Lisinopril (Prinivil) 2.5 mg PO DAILY [facility] Last Admin: 01/22/18 13:28 Dose: 2.5 mg Metoprolol Succinate (Toprol Xl -) 25 mg PO DAILY [facility] Last Admin: 01/22/18 13:28 Dose: 25 mg Pantoprazole Sodium (Protonix -) 40 mg PO DAILY [facility] Last Admin: 01/22/18 13:28 Dose: 40 mg Tenofovir Disoproxil Fumarate (Viread -) 300 mg PO DAILY [facility] Last Admin: 01/22/18 13:28 Dose: 300 mg - Objective Vital Signs: Vital Signs Temperature 98.8 F 01/22/18 08:25 Pulse Rate 74 01/22/18 12:30 Respiratory Rate 18 01/22/18 12:30 Blood Pressure 142/70 01/22/18 12:30 O2 Sat by Pulse Oximetry (%) 97 01/21/18 21:00 Constitutional: Yes: No Distress, Calm Cardiovascular: Yes: Regular Rate and Rhythm Respiratory: Yes: Regular, CTA Bilaterally Gastrointestinal: Yes: Normal Bowel Sounds, Soft Musculoskeletal: Yes: WNL Extremities: Yes: Other Wound/Incision: Yes: Dressing Dry and Intact Neurological: Yes: Alert, Oriented Psychiatric: Yes: Alert, Oriented Labs: CBC, BMP 01/22/18 08:30 01/22/18 08:30 INR, PTT INR 1.39 (0.82-1.09) H 01/20/18 12:00 Assessment/Plan Problem List - Problems (1) Foot pain, right Code(s): M79.671 - PAIN IN RIGHT FOOT (2) Amputated toe Code(s): Z89.429 - ACQUIRED ABSENCE OF OTHER TOE(S), UNSPECIFIED SIDE (3) Atrial fibrillation Code(s): I48.91 - UNSPECIFIED ATRIAL FIBRILLATION (4) Cellulitis Code(s): L03.90 - CELLULITIS, UNSPECIFIED Qualifiers: (5) Diabetes Code(s): E11.9 - TYPE 2 DIABETES MELLITUS WITHOUT COMPLICATIONS (6) ESRD (end stage renal disease) on dialysis Code(s): N18.6 - END STAGE RENAL DISEASE; Z99.2 - DEPENDENCE ON RENAL DIALYSIS 7 necrosis / bobe exposure of the foot plan continue abx patient going for surgery biopsy to be done during surgery rest continue current mgmt
--- NOTE | 2018-01-22 16:05 | PN ---
Physical Exam: SUBJECTIVE: Patient seen and examined. To OR today OBJECTIVE: Vital Signs Period Temp Pulse Resp BP Sys/Palafxo Pulse Ox Last 24 Hr 98.8 F-98.8 F 68-85 18-20 035-151/70-84 97 GENERAL: The patient is awake, alert, and fully oriented, in no acute distress. LUNGS: Breath sounds equal, clear to auscultation bilaterally, no wheezes, no crackles, no accessory muscle use. HEART: Regular rate and rhythm, S1, S2 ABDOMEN: Soft, nontender, nondistended, LOWER EXTREMITIES: both feet wrapped with gauze, c/d/i. Laboratory Results - last 24 hr 01/21/18 01/21/18 01/22/18 17:50 21:45 06:43 WBC RBC Hgb Hct MCV MCH MCHC RDW Plt Count MPV Sodium Potassium Chloride Carbon Dioxide Anion Gap BUN Creatinine Creat Clearance w eGFR POC Glucometer 98 143 275 Random Glucose Calcium Phosphorus 01/22/18 01/22/18 08:30 08:30 WBC 9.7 RBC 3.11 L Hgb 9.8 L Hct 29.3 L MCV 94.1 MCH 31.4 MCHC 33.4 RDW 15.7 Plt Count 360 MPV 8.8 Sodium 139 Potassium 4.2 Chloride 102 Carbon Dioxide 26 Anion Gap 11 BUN 39 H Creatinine 8.0 H* Creat Clearance w eGFR 6.83 POC Glucometer Random Glucose 119 H Calcium 7.2 L Phosphorus 7.4 H D Active Medications Generic Name Dose Route Start Last Admin Trade Name Freq PRN Reason Stop Dose Admin Al Hydroxide/Mg Hydroxide 30 ml 01/21/18 17:09 Mylanta Oral Suspension - PO Q6H PRN DYSPEPSIA Atorvastatin Calcium 10 mg 01/21/18 22:00 01/21/18 21:46 Lipitor - PO 10 mg HS [facility] Administration Collagenase 1 applic 01/21/18 10:00 01/22/18 13:21 Santyl - TP Not Given DAILY [facility] Protocol Piperacillin Sod/Tazobactam 50 mls @ 100 mls/hr 01/21/18 12:15 01/22/18 13:28 Sod 2.25 gm/ Dextrose IVPB 100 mls/hr Q8H-IV [facility] Administration Protocol Sodium Chloride 250 mls @ 3,000 mls/hr 01/21/18 12:55 Normal Saline - IV 01/22/18 12:55 PRN PRN Hypotension during Dialysis Insulin Aspart 1 vial 01/20/18 22:00 01/22/18 13:20 Novolog Vial Sliding Scale - SQ Not Given ACHS [facility] Protocol Lactobacillus Acidophilus 1 tab 01/21/18 12:30 01/22/18 13:28 Bacid - PO Not Given DAILY [facility] Lisinopril 2.5 mg 01/21/18 10:00 01/22/18 13:28 Prinivil PO 2.5 mg DAILY [facility] Administration Metoprolol Succinate 25 mg 01/21/18 10:00 01/22/18 13:28 Toprol Xl - PO 25 mg DAILY [facility] Administration Pantoprazole Sodium 40 mg 01/21/18 17:15 01/22/18 13:28 Protonix - PO 40 mg DAILY [facility] Administration Tenofovir Disoproxil Fumarate 300 mg 01/21/18 10:00 01/22/18 13:28 Viread - PO 300 mg DAILY [facility] Administration ASSESSMENT/PLAN 62 year-old male with a PMH significant for HTN, HLD, CAD s/p CABG s/p stents, PVD, osteomyelitis of multiple toes, NIDDM, Hep B, and ESRD on HD. Admitted for purulent right toe infection. MSSA and Enterococcus cellulitis right foot/draining wound Peripheral vascular disease Osteomyelitis --01/12 Bone SPECT: osteo right first metatarsal head, right second metatarsal v. middle cuneiform, and left second toe --continue Zosyn (day #2) --to OR today ESRD on HD --HD session on 01/20 terminated after 2 hours --patient refusing renal diet --1.2L fluid restriction Hypertension --BP stable --continue lisinopril, Toprol XL Hyperlipidemia --continue Lipitor Coronary artery disease s/p CABG s/p stents --04/2017 Echo: LV function normal; RV normal; LAE; mild MR; mild TR; moderate pHTN; mild AI; trace PI --ECG: sinus rhythm @ 73bpm --continue lisinopril, Toprol XL, Lipitor Hepatitis B --continue Viread NIDDM --Novolog sliding scale coverage FEN Fluids: PO intake adequate Electrolytes: replete as indicated Nutrition: diabetic, low sodium DVT prophylaxis: hold chemical prophylaxis for surgery; SCDs, oob, ambulation Physical therapy Dispo: continues to require inpatient care. Full code. Visit type - Emergency Visit Emergency Visit: Yes ED Registration Date: 01/20/18 Care time: The patient presented to the Emergency Department on the above date and was hospitalized for further evaluation of their emergent condition. - New Patient This patient is new to me today: No - Critical Care Critical Care patient: No
--- NOTE | 2018-01-22 16:05 | PN ---
Progress Note (short form) - Note Progress Note: Renal follow up for ESRD on HD Pt seen and examined during dialysis earlier today no acute complaints denies any sob, chest pain, abd pain no pain in feet. no fevers BP stable throughout dialysis 3.5L removed Vital Signs Temperature 98.8 F 01/22/18 08:25 Pulse Rate 74 01/22/18 12:30 Respiratory Rate 18 01/22/18 12:30 Blood Pressure 142/70 01/22/18 12:30 O2 Sat by Pulse Oximetry (%) 97 01/21/18 21:00 Intake & Output 01/19/18 01/20/18 01/21/18 01/22/18 23:59 23:59 23:59 23:59 Intake Total 300 800 100 Balance 300 800 100 Weight 99.79 kg awake and alert neck supple, no jvd RRR, No M/R CTA, ,no rales or wheeze soft NT/ND, no hepatomegaly trace LE edema both feet in dressings CBC, BMP 01/22/18 08:30 01/22/18 08:30 Current Medications Al Hydroxide/Mg Hydroxide (Mylanta Oral Suspension -) 30 ml PO Q6H PRN PRN Reason: DYSPEPSIA Atorvastatin Calcium (Lipitor -) 10 mg PO HS [facility] Last Admin: 01/21/18 21:46 Dose: 10 mg Collagenase (Santyl -) 1 applic TP DAILY [facility]; Protocol Last Admin: 01/22/18 13:21 Dose: Not Given Piperacillin Sod/Tazobactam (Sod 2.25 gm/ Dextrose) 50 mls @ 100 mls/hr IVPB Q8H-IV [facility]; Protocol Last Admin: 01/22/18 13:28 Dose: 100 mls/hr Sodium Chloride (Normal Saline -) 250 mls @ 3,000 mls/hr IV PRN PRN PRN Reason: Hypotension during Dialysis Stop: 01/22/18 12:55 Insulin Aspart (Novolog Vial Sliding Scale -) 1 vial SQ ACHS [facility]; Protocol Last Admin: 01/22/18 13:20 Dose: Not Given Lactobacillus Acidophilus (Bacid -) 1 tab PO DAILY [facility] Last Admin: 01/22/18 13:28 Dose: Not Given Lisinopril (Prinivil) 2.5 mg PO DAILY [facility] Last Admin: 01/22/18 13:28 Dose: 2.5 mg Metoprolol Succinate (Toprol Xl -) 25 mg PO DAILY [facility] Last Admin: 01/22/18 13:28 Dose: 25 mg Pantoprazole Sodium (Protonix -) 40 mg PO DAILY [facility] Last Admin: 01/22/18 13:28 Dose: 40 mg Tenofovir Disoproxil Fumarate (Viread -) 300 mg PO DAILY [facility] Last Admin: 01/22/18 13:28 Dose: 300 mg 62 year old gentleman with PMhx of ESRD on Hd, Hepatitis B, PVD, LE wounds, DM who presnted with LE wounds and for possible debridement. Pt missed last dialysis on Friday. #ESRD on HD #LE wounds #Osteomylitis #Chronic Anemia #DM #Hypertension #Hepatitis B tolerated dialysis well today with 3.5L UF Will continue HD 3x weekly Renal diet, 1.2L fluid restriction continue Abx as per ID for further debridement of LE wounds Vascular and podiatry follow up Jose Zavaleta DO
[2018-01-22] MEDS ORDERED: BUPIVACAINE HCL/PF 0.5% (5MG/ML) 10 ML VIAL ONE (16:32)
[2018-01-22] MEDS ORDERED: PROPOFOL 20 ML ONE (16:39)
[2018-01-22] MEDS ORDERED: SUCCINYLCHOLINE CHLORIDE 200 MG/10 ML VIAL ONE (16:39)
[2018-01-22] MEDS ORDERED: MIDAZOLAM HCL 2 MG/2 ML SINGLE DOSE VIAL ONE ×2 (16:39→17:30)
[2018-01-22] MEDS ORDERED: BUPIVACAINE HCL/PF 0.5% (5MG/ML) 10 ML VIAL IJ ONE ×2 (16:44→16:50)
[2018-01-22] MEDS ORDERED: LIDOCAINE HCL 1%, 10 MG/ML (20ML VIAL) PNB ONE ×2 (16:45→16:50)
[2018-01-22] MEDS ORDERED: THROMBIN (BOVINE) 5,000 UNIT VIAL TP ONE (17:18)
[2018-01-22] MEDS ORDERED: oxyCODONE HCL 5 MG TABLET PO PRN (18:22)
[2018-01-22] MEDS ORDERED: SODIUM CHLORIDE 1,000 ML IV SCH (18:30)
[2018-01-22] MEDS ORDERED: MAG HYDROX/AL HYDROX/SIMETH 30 ML UNIT-DOSE CUP PO PRN (18:31)
[2018-01-22] MEDS ORDERED: SODIUM CHLORIDE 250 ML IV PRN (18:31)
[2018-01-22] MEDS ORDERED: ATORVASTATIN CA 10 MG TABLET (FP) PO SCH (22:00)
[2018-01-23] MEDS: PIPERACILLIN/TAZOB 2.25 GM 2.25 GM in DEXTROSE 5%-WATER - 50 ML IVPB SCH ×3 (02:43→19:22)
[2018-01-23] MEDS ORDERED: MORPHINE SULFATE 2 MG/ML VIAL IVPUSH ONE (03:13)
[2018-01-23] MEDS: INSULIN SLIDING SCALE (NOVOLOG) 1 VIAL SQ SCH ×4 (06:13→21:16)
[2018-01-23] MEDS ORDERED: PT OWN MED DRAWER 7, Y5N ONE ×2 (07:59→08:03)
[2018-01-23] MEDS ORDERED: TENOFOVIR DISOPROXIL FUMARATE 300 MG TABLET PO SCH (08:00)
[2018-01-23] MEDS ORDERED: PIPERACILLIN/TAZOBACTAM 2.25 GM VIAL IVPB ONE ×3 (10:02→23:10)
[2018-01-23] MEDS ORDERED: DEXTROSE 5%-WATER - 50 ML IVPB ONE ×3 (10:02→23:10)
[2018-01-23] MEDS: LISINOPRIL 5 MG TABLET (FP) PO SCH (10:10)
[2018-01-23] MEDS: metoPROLOL SUCCINATE 25 MG TAB.SR.24H (FP) PO SCH (10:10)
[2018-01-23] MEDS: LACTOBACILLUS ACIDOPHILUS 1 TABLET PO SCH (10:10)
[2018-01-23] MEDS: PANTOPRAZOLE 40 MG TABLET (FP) PO SCH (10:10)
[2018-01-23] MEDS: COLLAGENASE CLOSTRIDIUM HIST. 30 GRAMS TUBE TP SCH (10:11)
--- NOTE | 2018-01-23 10:27 | PN ---
Progress Note, Physician History of Present Illness: no issues patient comfortable post procedure - Current Medication List Current Medications: Active Medications Al Hydroxide/Mg Hydroxide (Mylanta Oral Suspension -) 30 ml PO Q6H PRN PRN Reason: DYSPEPSIA Atorvastatin Calcium (Lipitor -) 10 mg PO HS [facility] Last Admin: 01/22/18 21:23 Dose: 10 mg Collagenase (Santyl -) 1 applic TP DAILY [facility]; Protocol Last Admin: 01/23/18 10:11 Dose: Not Given Sodium Chloride (Normal Saline -) 250 mls @ 3,000 mls/hr IV PRN PRN PRN Reason: Hypotension during Dialysis Piperacillin Sod/Tazobactam (Sod 2.25 gm/ Dextrose) 50 mls @ 100 mls/hr IVPB Q8H-IV [facility]; Protocol Last Admin: 01/23/18 10:10 Dose: 100 mls/hr Insulin Aspart (Novolog Vial Sliding Scale -) 1 vial SQ ACHS [facility]; Protocol Last Admin: 01/23/18 06:13 Dose: Not Given Lactobacillus Acidophilus (Bacid -) 1 tab PO DAILY [facility] Last Admin: 01/23/18 10:10 Dose: 1 tab Lisinopril (Prinivil) 2.5 mg PO DAILY [facility] Last Admin: 01/23/18 10:10 Dose: 2.5 mg Metoprolol Succinate (Toprol Xl -) 25 mg PO DAILY [facility] Last Admin: 01/23/18 10:10 Dose: 25 mg Oxycodone HCl (Roxicodone -) 5 mg PO Q4H PRN PRN Reason: PAIN LEVEL 1-5 Stop: 01/23/18 18:21 Pantoprazole Sodium (Protonix -) 40 mg PO DAILY [facility] Last Admin: 01/23/18 10:10 Dose: 40 mg Tenofovir Disoproxil Fumarate (Viread -) 300 mg PO DAILY@0800 [facility] Last Admin: 01/23/18 08:44 Dose: Not Given - Objective Vital Signs: Vital Signs Temperature 98.8 F 01/23/18 06:00 Pulse Rate 78 01/23/18 06:00 Respiratory Rate 20 01/23/18 06:00 Blood Pressure 136/64 01/23/18 06:00 O2 Sat by Pulse Oximetry (%) 96 01/22/18 21:00 Constitutional: Yes: No Distress, Calm Cardiovascular: Yes: Regular Rate and Rhythm Respiratory: Yes: Regular, CTA Bilaterally Gastrointestinal: Yes: Normal Bowel Sounds, Soft Musculoskeletal: Yes: WNL Extremities: Yes: Other Neurological: Yes: Alert, Oriented Labs: CBC, BMP 01/22/18 08:30 01/22/18 08:30 INR, PTT INR 1.39 (0.82-1.09) H 01/20/18 12:00 Assessment/Plan Problem List - Problems (1) Foot pain, right Code(s): M79.671 - PAIN IN RIGHT FOOT (2) Amputated toe Code(s): Z89.429 - ACQUIRED ABSENCE OF OTHER TOE(S), UNSPECIFIED SIDE (3) Atrial fibrillation Code(s): I48.91 - UNSPECIFIED ATRIAL FIBRILLATION (4) Cellulitis Code(s): L03.90 - CELLULITIS, UNSPECIFIED Qualifiers: (5) Diabetes Code(s): E11.9 - TYPE 2 DIABETES MELLITUS WITHOUT COMPLICATIONS (6) ESRD (end stage renal disease) on dialysis Code(s): N18.6 - END STAGE RENAL DISEASE; Z99.2 - DEPENDENCE ON RENAL DIALYSIS 7 necrosis / bobe exposure of the foot plan continue abx patient post rt metatarsal amputation continue abx' will d/w podiatry team
--- NOTE | 2018-01-23 11:16 | PN ---
Physical Exam: SUBJECTIVE: Patient seen and examined with Dr. Carl. OBJECTIVE: Vital Signs Period Temp Pulse Resp BP Sys/Palafox Pulse Ox Last 24 Hr 97.6 F-98.8 F 72-78 16-20 035-142/60-79 96-100 GENERAL: The patient is awake, alert, and fully oriented, in no acute distress. LUNGS: Breath sounds equal, clear to auscultation bilaterally, no wheezes, no crackles, no accessory muscle use. HEART: Regular rate and rhythm, S1, S2 ABDOMEN: Soft, nontender, nondistended, LOWER EXTREMITIES: both feet wrapped c/d/i. Laboratory Results - last 24 hr 01/22/18 01/22/18 18:53 21:24 POC Glucometer 73 132 Active Medications Generic Name Dose Route Start Last Admin Trade Name Freq PRN Reason Stop Dose Admin Al Hydroxide/Mg Hydroxide 30 ml 01/22/18 18:31 Mylanta Oral Suspension - PO Q6H PRN DYSPEPSIA Atorvastatin Calcium 10 mg 01/22/18 22:00 01/22/18 21:23 Lipitor - PO 10 mg HS [facility] Administration Collagenase 1 applic 01/23/18 10:00 01/23/18 10:11 Santyl - TP Not Given DAILY [facility] Protocol Sodium Chloride 250 mls @ 3,000 mls/hr 01/22/18 18:31 Normal Saline - IV PRN PRN Hypotension during Dialysis Piperacillin Sod/Tazobactam 50 mls @ 100 mls/hr 01/22/18 19:45 01/23/18 10:10 Sod 2.25 gm/ Dextrose IVPB 100 mls/hr Q8H-IV [facility] Administration Protocol Insulin Aspart 1 vial 01/22/18 22:00 01/23/18 06:13 Novolog Vial Sliding Scale - SQ Not Given ACHS [facility] Protocol Lactobacillus Acidophilus 1 tab 01/23/18 10:00 01/23/18 10:10 Bacid - PO 1 tab DAILY [facility] Administration Lisinopril 2.5 mg 01/23/18 10:00 01/23/18 10:10 Prinivil PO 2.5 mg DAILY [facility] Administration Metoprolol Succinate 25 mg 01/23/18 10:00 01/23/18 10:10 Toprol Xl - PO 25 mg DAILY [facility] Administration Oxycodone HCl 5 mg 07/26/18 18:22 Roxicodone - PO 01/23/18 18:21 Q4H PRN PAIN LEVEL 1-5 Pantoprazole Sodium 40 mg 01/23/18 10:00 01/23/18 10:10 Protonix - PO 40 mg DAILY [facility] Administration Tenofovir Disoproxil Fumarate 300 mg 01/25/18 10:00 Viread - PO Q72H [facility] ASSESSMENT/PLAN 62 year-old male with a PMH significant for HTN, HLD, CAD s/p CABG s/p stents, PVD, osteomyelitis of multiple toes, NIDDM, Hep B, and ESRD on HD. Admitted for purulent right toe infection. MSSA and Enterococcus cellulitis right foot/draining wound Peripheral vascular disease Osteomyelitis --01/12 Bone SPECT: osteo right first metatarsal head, right second metatarsal v. middle cuneiform, and left second toe --01/22: right foot debridement of bone and tissue and metatarsal amputation --wound culture from 01/20 grew pseudomonas; also grew VRE sensitive only to dapto and linezolid --ID aware ESRD on HD --last HD session 01/22 --patient refusing renal diet --1.2L fluid restriction Hypertension --BP stable --continue lisinopril, Toprol XL Hyperlipidemia --continue Lipitor Coronary artery disease s/p CABG s/p stents --04/2017 Echo: LV function normal; RV normal; LAE; mild MR; mild TR; moderate pHTN; mild AI; trace PI --ECG: sinus rhythm @ 73bpm --continue lisinopril, Toprol XL, Lipitor Hepatitis B --continue Viread q72h NIDDM --Novolog sliding scale coverage FEN Fluids: PO intake adequate Electrolytes: replete as indicated Nutrition: diabetic, low sodium DVT prophylaxis: subq heparin, oob, ambulation Physical therapy Dispo: continues to require inpatient care. Full code. Visit type - Emergency Visit Emergency Visit: Yes ED Registration Date: 01/20/18 Care time: The patient presented to the Emergency Department on the above date and was hospitalized for further evaluation of their emergent condition. - New Patient This patient is new to me today: No - Critical Care Critical Care patient: No
--- NOTE | 2018-01-23 11:44 | PN ---
Progress Note (short form) - Note Progress Note: POD#1 No pain. Eager to leave hospital. VSS Tmax. 98.8 +dressing clean and dry intact right foot, left foot granulating well, wbc=9.7 normal post op right left foot om grade 3 Had a long conversation with patient about HBO with Beatrice Ruiz present. Patients main concern is his hair piece has glue that is flammable. Explained that without HBO his leg on the right side and foot on left side were in greater Jeopardy. Finally agreed that he will do it after Mcgrath oks the non use of his hair piece. Also, explained that he will need wound vac, Ivabx, vns and wound care for him to heal properly. Patient agreed to all this at this time. Continue Santyl left foot. Dressing change tomorrow right. Vac tomorrow. Patient can get OOB to chair and bathroom at 6pm today. Will order additional post op shoe. Anticipate DC by Friday if all goes as planned. Discussed with Dr. Taye VERAS.
--- NOTE | 2018-01-23 11:54 | PN ---
Progress Note (short form) - Note Progress Note: Anesthesia POD#1 S/P right toe amputation under MAC VSS,pain is acceptable. No other issues. Barbara Mcclain MD.
--- NOTE | 2018-01-23 12:33 | OP ---
Operative Note - Note: Operative Date: 01/22/18 Pre-Operative Diagnosis: Osteomyelitis, [place] right foot Operation: 1st ray resection to midshaft 1st mettarsal, bone biopsy, skin flap right foot Findings: necrotic bone and soft tissue Post-Operative Diagnosis: Same as Pre-op Surgeon: Christofer Carl Anesthesia: Local, MAC Specimens Removed: bone and soft tissue Estimated Blood Loss (mls): 75 Operative Report Dictated: Yes
--- NOTE | 2018-01-23 19:57 | PN ---
Progress Note (short form) - Note Progress Note: 62 year old gentleman with PMhx of ESRD on Hd, Hepatitis B, PVD, LE wounds, DM who presnted with LE wounds and for possible debridement. #ESRD on HD #LE wounds #Osteomylitis #Chronic Anemia #DM #Hypertension #Hepatitis B Current Medications Al Hydroxide/Mg Hydroxide (Mylanta Oral Suspension -) 30 ml PO Q6H PRN PRN Reason: DYSPEPSIA Collagenase (Santyl -) [address] [facility]; Protocol Last Admin: 01/23/18 10:11 Dose: Not Given Epoetin Jerald (Procrit -) 10,000 unit SQ ONCE ONE Stop: 01/23/18 19:47 Heparin Sodium (Porcine) (Heparin -) 1,000 unit IVPUSH ONCE ONE Stop: 01/23/18 19:47 Sodium Chloride (Normal Saline -) 250 mls @ 3,000 mls/hr IV PRN PRN PRN Reason: Hypotension during Dialysis Piperacillin Sod/Tazobactam (Sod 2.25 gm/ Dextrose) 50 mls @ 100 mls/hr IVPB Q8H-IV [facility]; Protocol Last Admin: 01/23/18 19:22 Dose: 100 mls/hr Daptomycin 600 mg/ Sodium (Chloride) 50 mls @ 50 mls/hr IVPB [facility]; Protocol Sodium Chloride (Normal Saline -) 250 mls @ 3,000 mls/hr IV PRN PRN PRN Reason: Hypotension during Dialysis Stop: 01/24/18 19:46 Insulin Aspart (Novolog Vial Sliding Scale -) 1 vial SQ ACHS [facility]; Protocol Last Admin: 01/23/18 18:04 Dose: Not Given Lactobacillus Acidophilus (Bacid -) [address] [facility] Last Admin: 01/23/18 10:10 Dose: 1 tab Lisinopril (Prinivil) 2.5 mg PO DAILY [facility] Last Admin: 01/23/18 10:10 Dose: 2.5 mg Metoprolol Succinate (Toprol Xl -) [address] [facility] Last Admin: 01/23/18 10:10 Dose: 25 mg Pantoprazole Sodium (Protonix -) 40 mg PO DAILY [facility] Last Admin: 01/23/18 10:10 Dose: 40 mg Tenofovir Disoproxil Fumarate (Viread -) 300 mg PO Q72H [facility] Last Vital Signs Temp Pulse Resp BP Pulse Ox 98.2 F 71 18 122/73 96 01/23/18 15:14 01/23/18 17:20 01/23/18 17:20 01/23/18 17:20 01/22/18 21:00 CBC, BMP 01/22/18 08:30 01/22/18 08:30 for dialysis tomorrow t
[2018-01-23] MEDS ORDERED: oxyCODONE HCL 5 MG TABLET PO ONE (23:59)
[2018-01-24] MEDS: PIPERACILLIN/TAZOB 2.25 GM 2.25 GM in DEXTROSE 5%-WATER - 50 ML IVPB SCH ×2 (01:33→11:10)
[2018-01-24] MEDS: INSULIN SLIDING SCALE (NOVOLOG) 1 VIAL SQ SCH ×4 (06:12→22:26)
[2018-01-24] MEDS ORDERED: PT OWN MED DRAWER 7, Y5N ONE ×2 (07:42→11:04)
[2018-01-24] MEDS ORDERED: SODIUM CHLORIDE 250 ML IV PRN (08:10)
[2018-01-24] MEDS ORDERED: HEPARIN NA (PORCINE) 5,000 UNITS/ML 1ML VIAL IVPUSH ONE (09:00)
[2018-01-24] MEDS ORDERED: EPOETIN ALFA 10,000 UNIT/1 ML VIAL SQ ONE (09:00)
--- NOTE | 2018-01-24 10:06 | PN ---
Physical Exam: SUBJECTIVE: Patient seen and examined oob to chair. Had HD earlier, tolerated well. Voices no complaints. Yesterday spoken to at length by Dr. Carl about controlling diabetes; today eating a large piece of chocolate cake from [employer]. OBJECTIVE: Vital Signs Period Temp Pulse Resp BP Sys/Palafox Pulse Ox Last 24 Hr 98.2 F 62-75 16-18 116-144/72-98 GENERAL: The patient is awake, alert, and fully oriented, in no acute distress. LUNGS: Breath sounds equal, clear to auscultation bilaterally, no wheezes, no crackles, no accessory muscle use. HEART: Regular rate and rhythm, S1, S2 ABDOMEN: Soft, nontender, nondistended, LOWER EXTREMITIES: both feet wrapped c/d/i. No leg swelling or erythema. Laboratory Results - last 24 hr 01/23/18 01/23/18 12:35 18:02 POC Glucometer 115 145 Active Medications Generic Name Dose Route Start Last Admin Trade Name Freq PRN Reason Stop Dose Admin Al Hydroxide/Mg Hydroxide 30 ml 01/22/18 18:31 Mylanta Oral Suspension - PO Q6H PRN DYSPEPSIA Collagenase 1 applic 01/23/18 10:00 01/23/18 10:11 Santyl - TP Not Given DAILY [facility] Protocol Piperacillin Sod/Tazobactam 50 mls @ 100 mls/hr 01/22/18 19:45 01/24/18 01:33 Sod 2.25 gm/ Dextrose IVPB 100 mls/hr Q8H-IV [facility] Administration Protocol Daptomycin 600 mg/ Sodium 50 mls @ 50 mls/hr 01/24/18 13:00 Chloride IVPB [facility] Protocol Insulin Aspart 1 vial 01/22/18 22:00 01/24/18 06:12 Novolog Vial Sliding Scale - SQ Not Given ACHS [facility] Protocol Lactobacillus Acidophilus 1 tab 01/23/18 10:00 01/23/18 10:10 Bacid - PO 1 tab DAILY [facility] Administration Lisinopril 2.5 mg 01/23/18 10:00 01/23/18 10:10 Prinivil PO 2.5 mg DAILY [facility] Administration Metoprolol Succinate 25 mg 01/23/18 10:00 01/23/18 10:10 Toprol Xl - PO 25 mg DAILY [facility] Administration Pantoprazole Sodium 40 mg 01/23/18 10:00 01/23/18 10:10 Protonix - PO 40 mg DAILY [facility] Administration Tenofovir Disoproxil Fumarate 300 mg 01/25/18 10:00 Viread - PO Q72H [facility] ASSESSMENT/PLAN 62 year-old male with a PMH significant for HTN, HLD, CAD s/p CABG s/p stents, PVD, osteomyelitis of multiple toes, NIDDM, Hep B, and ESRD on HD. Admitted for purulent right toe infection. MSSA and Enterococcus cellulitis/gangrene right foot Osteomyelitis --01/12 Bone SPECT: osteo right first metatarsal head, right second metatarsal v. middle cuneiform, and left second toe --01/22: 1st ray resection to midshaft 1st mettarsal, bone biopsy, skin flap right foot --wound culture from 01/20 grew pseudomonas; also grew VRE sensitive only to dapto and linezolid --ID aware ESRD on HD --HD today 01/22 --patient refusing renal diet --1.2L fluid restriction Hypertension --BP stable --continue lisinopril, Toprol XL Hyperlipidemia --continue Lipitor Coronary artery disease s/p CABG s/p stents --04/2017 Echo: LV function normal; RV normal; LAE; mild MR; mild TR; moderate pHTN; mild AI; trace PI --ECG: sinus rhythm @ 73bpm --continue lisinopril, Toprol XL, Lipitor Hepatitis B --continue Viread q72h NIDDM --Novolog sliding scale coverage FEN Fluids: PO intake adequate Electrolytes: replete as indicated Nutrition: diabetic, low sodium DVT prophylaxis: subq heparin, oob, ambulation Physical therapy Dispo: continues to require inpatient care. Full code. Visit type - Emergency Visit Emergency Visit: Yes ED Registration Date: 01/20/18 Care time: The patient presented to the Emergency Department on the above date and was hospitalized for further evaluation of their emergent condition. - New Patient This patient is new to me today: No - Critical Care Critical Care patient: No
[2018-01-24] MEDS: DAPTOMYCIN 600 MG in SODIUM CHLORIDE 50 ML IVPB SCH ×2 (10:59→12:41)
[2018-01-24] MEDS ORDERED: PIPERACILLIN/TAZOBACTAM 2.25 GM VIAL IVPB ONE (11:05)
[2018-01-24] MEDS ORDERED: DEXTROSE 5%-WATER - 50 ML IVPB ONE (11:05)
[2018-01-24] MEDS: PANTOPRAZOLE 40 MG TABLET (FP) PO SCH (11:09)
[2018-01-24] MEDS: LACTOBACILLUS ACIDOPHILUS 1 TABLET PO SCH (11:09)
[2018-01-24] MEDS: LISINOPRIL 5 MG TABLET (FP) PO SCH (11:09)
[2018-01-24] MEDS: metoPROLOL SUCCINATE 25 MG TAB.SR.24H (FP) PO SCH (11:09)
[2018-01-24] MEDS: COLLAGENASE CLOSTRIDIUM HIST. 30 GRAMS TUBE TP SCH (11:10)
--- NOTE | 2018-01-24 15:07 | PN ---
Progress Note, Physician History of Present Illness: very uncooperative has lost his line will see what patient does if he allows line to be placed - Current Medication List Current Medications: Active Medications Al Hydroxide/Mg Hydroxide (Mylanta Oral Suspension -) 30 ml PO Q6H PRN PRN Reason: DYSPEPSIA Collagenase (Santyl -) 1 applic TP DAILY [facility]; Protocol Last Admin: 01/24/18 11:10 Dose: Not Given Piperacillin Sod/Tazobactam (Sod 2.25 gm/ Dextrose) 50 mls @ 100 mls/hr IVPB Q8H-IV [facility]; Protocol Last Admin: 01/24/18 11:10 Dose: 100 mls/hr Daptomycin 600 mg/ Sodium (Chloride) 50 mls @ 50 mls/hr IVPB TuThSa [facility]; Protocol Last Admin: 01/24/18 12:41 Dose: Not Given Insulin Aspart (Novolog Vial Sliding Scale -) 1 vial SQ ACHS [facility]; Protocol Last Admin: 01/24/18 12:40 Dose: Not Given Lactobacillus Acidophilus (Bacid -) 1 tab PO DAILY [facility] Last Admin: 01/24/18 11:09 Dose: 1 tab Lisinopril (Prinivil) 2.5 mg PO DAILY [facility] Last Admin: 01/24/18 11:09 Dose: 2.5 mg Metoprolol Succinate (Toprol Xl -) 25 mg PO DAILY [facility] Last Admin: 01/24/18 11:09 Dose: 25 mg Pantoprazole Sodium (Protonix -) 40 mg PO DAILY [facility] Last Admin: 01/24/18 11:09 Dose: 40 mg Tenofovir Disoproxil Fumarate (Viread -) 300 mg PO Q72H [facility] - Objective Vital Signs: Vital Signs Temperature 98.2 F 01/23/18 15:14 Pulse Rate 78 01/24/18 10:51 Respiratory Rate 18 01/24/18 10:51 Blood Pressure 125/61 01/24/18 10:51 O2 Sat by Pulse Oximetry (%) 96 01/22/18 21:00 Constitutional: Yes: Anxious, Other (uncooperative) Cardiovascular: Yes: Regular Rate and Rhythm Respiratory: Yes: Regular, CTA Bilaterally Musculoskeletal: Yes: WNL Extremities: Yes: Other Wound/Incision: Yes: Dressing Dry and Intact Neurological: Yes: Alert, Oriented Psychiatric: Yes: Alert, Oriented Labs: CBC, BMP 01/22/18 08:30 01/22/18 08:30 INR, PTT INR 1.39 (0.82-1.09) H 01/20/18 12:00 Assessment/Plan Problem List - Problems (1) Foot pain, right Code(s): M79.671 - PAIN IN RIGHT FOOT (2) Amputated toe Code(s): Z89.429 - ACQUIRED ABSENCE OF OTHER TOE(S), UNSPECIFIED SIDE (3) Atrial fibrillation Code(s): I48.91 - UNSPECIFIED ATRIAL FIBRILLATION (4) Cellulitis Code(s): L03.90 - CELLULITIS, UNSPECIFIED Qualifiers: (5) Diabetes Code(s): E11.9 - TYPE 2 DIABETES MELLITUS WITHOUT COMPLICATIONS (6) ESRD (end stage renal disease) on dialysis Code(s): N18.6 - END STAGE RENAL DISEASE; Z99.2 - DEPENDENCE ON RENAL DIALYSIS 7 necrosis / bobe exposure of the foot plan continue abx patient post rt metatarsal amputation if patient does not allow iv abx then will ahve to switch to oral
--- NOTE | 2018-01-24 15:25 | PN ---
Progress Note (short form) - Note Progress Note: POD#2. No pain. Seen in dialysis this am. Begging to to leave hospital today. +granulating plantar medial distal wound, retention sutures intact dorsally right foot, left foot granulating well, normal post op right left foot om grade 3 Dressing change done both feet. Betadine dressing done to both. Dressing change done seperately and sterile technique for both. Discussed with patient his need to stay till Friday. If he leaves today it would be against medical advice. Wound vac right foot to be applied. Continue Santyl left foot. Offloading as much as possible b/l. Continue ivabx as per ID. cbc with diff, esr, crp ordered. will follow till dc. vns ordered. vac ordered. Also, states he spoke to his jones and he will be using tape instead of glue to go to [facility]. Advised that tape must be non flammable.
[2018-01-24] MEDS ORDERED: oxyCODONE HCL 5 MG TABLET PO PRN (21:01)
--- NOTE | 2018-01-24 21:05 | PN ---
Progress Note (short form) - Note Progress Note: 62 year old gentleman with PMhx of ESRD on Hd, Hepatitis B, PVD, LE wounds, DM who presnted with LE wounds and for possible debridement. #ESRD on HD #LE wounds #Osteomylitis #Chronic Anemia #DM #Hypertension #Hepatitis B seen on dialysis Current Medications Al Hydroxide/Mg Hydroxide (Mylanta Oral Suspension -) 30 ml PO Q6H PRN PRN Reason: DYSPEPSIA Collagenase (Santyl -) 1 applic TP DAILY [facility]; Protocol Last Admin: 01/24/18 11:10 Dose: Not Given Daptomycin 600 mg/ Sodium (Chloride) 50 mls @ 50 mls/hr IVPB [facility]; Protocol Last Admin: 01/24/18 12:41 Dose: Not Given Insulin Aspart (Novolog Vial Sliding Scale -) 1 vial SQ ACHS [facility]; Protocol Last Admin: 01/24/18 16:14 Dose: Not Given Lactobacillus Acidophilus (Bacid -) 1 tab PO DAILY [facility] Last Admin: 01/24/18 11:09 Dose: 1 tab Levofloxacin (Levaquin -) 250 mg PO Q48H [facility] Lisinopril (Prinivil) 2.5 mg PO DAILY [facility] Last Admin: 01/24/18 11:09 Dose: 2.5 mg Metoprolol Succinate (Toprol Xl -) 25 mg PO DAILY [facility] Last Admin: 01/24/18 11:09 Dose: 25 mg Oxycodone HCl (Roxicodone -) 5 mg PO Q6H PRN PRN Reason: PAIN LEVEL 7 - 10 Pantoprazole Sodium (Protonix -) 40 mg PO DAILY [facility] Last Admin: 01/24/18 11:09 Dose: 40 mg Tenofovir Disoproxil Fumarate (Viread -) 300 mg PO Q72H [facility] Last Vital Signs Temp Pulse Resp BP Pulse Ox 98.2 F 79 218 H 128/56 96 01/23/18 15:14 01/24/18 16:30 01/24/18 16:30 01/24/18 16:30 01/22/18 21:00 CBC, BMP 01/22/18 08:30 01/22/18 08:30 phos 7 IMP- hyperphosphatemia Plan- add phosphate binders for dialysis tomorrow t
[2018-01-25] MEDS: INSULIN SLIDING SCALE (NOVOLOG) 1 VIAL SQ SCH ×3 (06:16→17:36)
[2018-01-25 08:35] VITALS: BP 139/84; PULSE 78; TEMP 98
--- NOTE | 2018-01-25 09:15 | PN ---
Progress Note, Physician History of Present Illness: stable no new issues refuses iv abx not allowing staff to put in the line tried since yesterday - Current Medication List Current Medications: Active Medications Al Hydroxide/Mg Hydroxide (Mylanta Oral Suspension -) 30 ml PO Q6H PRN PRN Reason: DYSPEPSIA Calcium Acetate (Phoslo -) 667 mg PO TIDCM [facility] Collagenase (Santyl -) 1 applic TP DAILY [facility]; Protocol Last Admin: 01/24/18 11:10 Dose: Not Given Daptomycin 600 mg/ Sodium (Chloride) 50 mls @ 50 mls/hr IVPB TuThSa [facility]; Protocol Last Admin: 01/24/18 12:41 Dose: Not Given Insulin Aspart (Novolog Vial Sliding Scale -) 1 vial SQ ACHS [facility]; Protocol Last Admin: 01/25/18 06:16 Dose: Not Given Lactobacillus Acidophilus (Bacid -) 1 tab PO DAILY [facility] Last Admin: 01/24/18 11:09 Dose: 1 tab Levofloxacin (Levaquin -) 250 mg PO Q48H [facility] Lisinopril (Prinivil) 2.5 mg PO DAILY [facility] Last Admin: 01/24/18 11:09 Dose: 2.5 mg Metoprolol Succinate (Toprol Xl -) 25 mg PO DAILY [facility] Last Admin: 01/24/18 11:09 Dose: 25 mg Oxycodone HCl (Roxicodone -) 5 mg PO Q6H PRN PRN Reason: PAIN LEVEL 7 - 10 Pantoprazole Sodium (Protonix -) 40 mg PO DAILY [facility] Last Admin: 01/24/18 11:09 Dose: 40 mg Tenofovir Disoproxil Fumarate (Viread -) 300 mg PO Q72H [facility] - Objective Vital Signs: Vital Signs Temperature 98.0 F 01/25/18 08:34 Pulse Rate 78 01/25/18 08:34 Respiratory Rate 18 01/25/18 08:34 Blood Pressure 139/84 01/25/18 08:34 O2 Sat by Pulse Oximetry (%) 96 01/22/18 21:00 Constitutional: Yes: Calm, Other Cardiovascular: Yes: Regular Rate and Rhythm Respiratory: Yes: Regular, CTA Bilaterally Gastrointestinal: Yes: Normal Bowel Sounds, Soft Musculoskeletal: Yes: WNL Extremities: Yes: Other Wound/Incision: Yes: Dressing Dry and Intact Neurological: Yes: Alert, Oriented Psychiatric: Yes: Alert, Oriented Labs: CBC, BMP 01/22/18 08:30 01/22/18 08:30 INR, PTT INR 1.39 (0.82-1.09) H 01/20/18 12:00 Assessment/Plan Problem List - Problems (1) Foot pain, right Code(s): M79.671 - PAIN IN RIGHT FOOT (2) Amputated toe Code(s): Z89.429 - ACQUIRED ABSENCE OF OTHER TOE(S), UNSPECIFIED SIDE (3) Atrial fibrillation Code(s): I48.91 - UNSPECIFIED ATRIAL FIBRILLATION (4) Cellulitis Code(s): L03.90 - CELLULITIS, UNSPECIFIED Qualifiers: (5) Diabetes Code(s): E11.9 - TYPE 2 DIABETES MELLITUS WITHOUT COMPLICATIONS (6) ESRD (end stage renal disease) on dialysis Code(s): N18.6 - END STAGE RENAL DISEASE; Z99.2 - DEPENDENCE ON RENAL DIALYSIS 7 necrosis / bobe exposure of the foot plan continue abx patient post rt metatarsal amputation switched to oral continue care
[2018-01-25] MEDS ORDERED: PT OWN MED DRAWER 7, Y5N ONE ×3 (09:27→11:48)
--- NOTE | 2018-01-25 09:39 | PN ---
Progress Note (short form) - Note Progress Note: POD#3. No pain. No distress exhibited by patient. Begging to to leave hospital today again. +vac in place right foot, left foot granulating well, awaiting wbc, crp, esr normal post op right left foot om grade 3 Antibiotics as per ID. Once again discussed with patient his need to stay till Friday. Wound vac right foot. Continue Santyl left foot. Offloading as much as possible b/l. Continue ivabx as per ID. will follow till dc. vns ordered. vac ordered for home. follow up in [facility] when discharged. Recommended knee roller and he said he could not do that.
[2018-01-25] MEDS ORDERED: TENOFOVIR DISOPROXIL FUMARATE 300 MG TABLET PO SCH (10:00)
[2018-01-25] MEDS: CALCIUM ACETATE 667 MG CAPSULE (FP) PO SCH ×2 (11:02→12:45)
[2018-01-25] MEDS: LACTOBACILLUS ACIDOPHILUS 1 TABLET PO SCH (11:02)
[2018-01-25] MEDS: PANTOPRAZOLE 40 MG TABLET (FP) PO SCH (11:03)
[2018-01-25] MEDS: LISINOPRIL 5 MG TABLET (FP) PO SCH (11:03)
[2018-01-25] MEDS: COLLAGENASE CLOSTRIDIUM HIST. 30 GRAMS TUBE TP SCH (11:04)
[2018-01-25] MEDS: metoPROLOL SUCCINATE 25 MG TAB.SR.24H (FP) PO SCH (11:04)
--- NOTE | 2018-01-25 16:34 | DS ---
Physical Exam: SUBJECTIVE: Patient seen and examined OBJECTIVE: Vital Signs Period Temp Pulse Resp BP Sys/Palafox Pulse Ox Last 24 Hr 98.0 F 78 18 139/84 PHYSICAL EXAM GENERAL: The patient is awake, alert, and fully oriented, in no acute distress. LUNGS: Breath sounds equal, clear to auscultation bilaterally, no wheezes, no crackles, no accessory muscle use. HEART: Regular rate and rhythm, S1, S2 ABDOMEN: Soft, nontender, nondistended, LOWER EXTREMITIES: both feet wrapped c/d/i. No leg swelling or erythema. LABS CBCD WBC 9.7 K/mm3 (4.0-10.0) 01/22/18 08:30 RBC 3.11 M/mm3 (4.00-5.60) L 01/22/18 08:30 Hgb 9.8 GM/dL (11.7-16.9) L 01/22/18 08:30 Hct 29.3 % (35.4-49) L 01/22/18 08:30 MCV 94.1 fl (80-96) 01/22/18 08:30 MCHC 33.4 g/dl (32.0-35.9) 01/22/18 08:30 RDW 15.7 % (11.9-15.9) 01/22/18 08:30 Plt Count 360 K/MM3 (134-434) 01/22/18 08:30 MPV 8.8 fl (7.5-11.1) 01/22/18 08:30 CMP Sodium 139 mmol/L (136-145) 01/22/18 08:30 Potassium 4.2 mmol/L (3.5-5.1) 01/22/18 08:30 Chloride 102 mmol/L (98-107) 01/22/18 08:30 Carbon Dioxide 26 mmol/L (21-32) 01/22/18 08:30 Anion Gap 11 (8-16) 01/22/18 08:30 BUN 39 mg/dL (7-18) H 01/22/18 08:30 Creatinine 8.0 mg/dL (0.7-1.3) H* 01/22/18 08:30 Creat Clearance w eGFR 6.83 (>60) 01/22/18 08:30 Calcium 7.2 mg/dL (8.5-10.1) L 01/22/18 08:30 Total Bilirubin 0.5 mg/dL (0.2-1.0) 01/21/18 11:08 AST 13 U/L (15-37) L D 01/21/18 11:08 ALT 7 U/L (12-78) L 01/21/18 11:08 Alkaline Phosphatase 64 U/L (45-117) 01/21/18 11:08 Total Protein 7.9 g/dl (6.4-8.2) 01/21/18 11:08 Albumin 2.7 g/dl (3.4-5.0) L 01/21/18 11:08 HOSPITAL COURSE: Date of Admission:01/20/18 Date of Discharge: 01/25/18 62 year-old male with a PMH significant for HTN, HLD, CAD s/p CABG s/p stents, PVD, osteomyelitis of multiple toes, NIDDM, Hep B, and ESRD on HD. Admitted for purulent right toe infection. MSSA and Enterococcus cellulitis/gangrene right foot Osteomyelitis --01/12 Bone SPECT: osteo right first metatarsal head, right second metatarsal v. middle cuneiform, and left second toe --01/22: 1st ray resection to midshaft 1st mettarsal, bone biopsy, skin flap right foot --wound culture from 01/20 grew pseudomonas; also grew VRE sensitive only to dapto and linezolid --patient will receive dapto with HD treatments; discharged on PO levofloxacin q48h --wound vac and dressing changes to be monitored by VNS --followup with Dr. Carl at wound clinic ESRD on HD Hypertension --BP stable --continued lisinopril, Toprol XL Hyperlipidemia --continued Lipitor Coronary artery disease s/p CABG s/p stents --04/2017 Echo: LV function normal; RV normal; LAE; mild MR; mild TR; moderate pHTN; mild AI; trace PI --ECG: sinus rhythm @ 73bpm --continued lisinopril, Toprol XL, Lipitor Hepatitis B --continued Viread q72h NIDDM --Novolog sliding scale coverage Minutes to complete discharge: 35 Discharge Summary Reason For Visit: ENCOUNTER FOR DEBRIDEMENT OF SKIN Current Active Problems Diabetic foot infection (Acute) Visit for debridement (Acute) Condition: Improved - Instructions Diet, Activity, Other Instructions: Two prescriptions have been sent to your pharmacy. One is for levofloxacin, an antibiotic. The other is for collagenase. You will continue to receive daptocmycin, a second antibiotic, with hemodialysis. Call the wound center tomorrow morning and make an appointment to follow up with Dr. Carl. VNS services will be calling you tomorrow morning and let you know when they will be coming. They will apply the wound vac. They will see you three times weekly and treat the wounds on both feet. Referrals: Christofer Carl DPM [Staff Physician] - Disposition: HOME - Home Medications Comprehensive Discharge Medication List: Ambulatory Orders Aspirin [ASA -] 81 mg PO DAILY 12/23/16 Lisinopril [Prinivil] 2.5 mg PO DAILY #30 tablet 05/30/17 Atorvastatin Ca [Lipitor] 10 mg PO DAILY 07/24/17 Metoprolol Succinate [Toprol Xl] 25 mg PO DAILY 07/24/17 Calcium Acetate [Phoslo -] 667 mg PO TIDCM capsule 01/25/18 Collagenase Clostridium Hist. [Santyl -] 1 applic TP DAILY #1 tube 01/25/18 Daptomycin [Cubicin (Restricted To Id) -] 600 mg IVPB TuThSa vial 01/25/18 Tenofovir Disoproxil Fumarate [Viread -] 300 mg PO Q72H #0 cap 01/25/18 levoFLOXacin [Levaquin -] 250 mg PO Q48H #30 cap 01/25/18 This patient is new to me today: No Emergency Visit: Yes ED Registration Date: 01/20/18 Care time: The patient presented to the Emergency Department on the above date and was hospitalized for further evaluation of their emergent condition. Critical Care patient: No - Discharge Referral Referred to [facility] Yes Physician Referral: Garrett Hanson DO ([facility])
--- NOTE | 2018-01-26 09:47 | OP ---
DATE OF OPERATION: 01/22/2018 SURGEON: Christofer Carl DPM EQUITIES TRADER: ISAAC [place]-2 PREPROCEDURE DIAGNOSIS: Right foot submetatarsal 1 grade 3 wound osteomyelitis with cellulitis. POSTPROCEDURE DIAGNOSIS: Right foot submetatarsal 1 grade 3 wound osteomyelitis with cellulitis. PROCEDURE: Right foot wound debridement with partial 1st ray amputation with creation of skin flap. DESCRIPTION OF PROCEDURE: The patient was brought into the operating room and placed on the operating table in the supine position. Upon achieving IV anesthesia, 20 mL of a 1:1 mixture of lidocaine plain 1% and Marcaine plain 0.5% were injected to the right foot in an ankle block manner. The foot was then scrubbed, prepped, and draped in the usual aseptic manner. Attention was then directed to the right foot where a wound measuring approximately 5 cm x 5 cm with a necrotic wound base and probing to bone was noted under the 1st metatarsal head. This necrotic tissue was removed and sent to the lab. Upon visualization of the 1st metatarsal, the bone was noted to be necrotic and discolored. This bone was removed at the metatarsal shaft with an oscillating saw and sent out to the lab. Upon visualization of the proximal phalanx and distal phalanx, the bone was also noted to be necrotic and discolored. This bone was also removed and sent to the lab utilizing an oscillating saw. The remaining skin and soft tissue of the hallux was then noted to be of good condition and a skin flap was then created which was turned down to the area where the 1st metatarsal was and a skin flap was made, which was stitched with 2-0 nylon sutures. The plantar aspect of the wound was kept to remain open. Copious amounts of bacitracin and normal saline solution were used to flush the open aspect of the plantar wound. The foot was then dressed with Adaptic, 4 x 4 gauze, Ashley, and an Otilio wrap. The patient tolerated the procedure well and was transported from the OR to the PACU with vital signs stable and neurovascular status intact to his right foot. Kaylie Alas PGY-2 dictating for DWIGHT David DPM /[id number]
--- NOTE | 2018-01-26 12:09 | PATH ---
Surgical Pathology Report Patient Name: ELSIE JENSEN Med. Rec. #: [id number] /Age/Gender: 1955 (Age: 62) / M Account: [id number] Location: [facility] MED/SURG Taken: 01/22/2018 Received: 01/23/2018 Reported: 01/26/2018 Physicians: DWIGHT David ACNP Specimen(s) Received A: BONE AND TISSUE FROM RIGHT FOOT B: PROXIMAL BONE FROM RIGHT FOOT Clinical History Osteomyelitis, gangrene right foot Final Diagnosis A. BONE AND TISSUE, FOOT, RIGHT, EXCISION: BONE WITH SEVERE ACUTE OSTEOMYELITIS. SKIN AND UNDERLYING SOFT TISSUE WITH ACUTE AND CHRONIC NECROTIZING INFLAMMATION AND ULCERATION. B. PROXIMAL BONE, FOOT, RIGHT, EXCISION: BONE WITH ACUTE OSTEOMYELITIS. Electronically Signed Nelsy Corley M.D. Gross Description A. Received in formalin labeled "bone and tissue right foot," is a 9.0 x 6.0 x 2.0 cm aggregate of multiple portions of cummings bone, soft tissue and skin. Personal Development Educator sections are submitted in one cassette, following decalcification. B. Received in formalin labeled "proximal bone right foot," are 3 cummings bone fragments ranging from 1.0 x 0.8 x 0.4 cm to 1.5 x 0.9 x 0.5 cm. The bones are bisected and entirely submitted in one cassette, following decalcification. DL/01/23/2018 saudi/01/23/2018
== END 2018-01-25 17:57 | disposition home or self-care (01) | DRG 239 ==
LOC: JER 10:28 → JERBED 12:35 → J8W 18:05
PROVIDERS: ADMIT Internal Medicine; ATTEND Nurse Practitioner Acute Care
PROC: 5A1D70Z Performance of Urinary Filtration, Intermittent, Less than 6 Hours Per Day (ICD-10-PCS; 2018-01-20)
PROC: 0Y6M0Z9 Detachment at Right Foot, Partial 1st Ray, Open Approach (ICD-10-PCS; principal; 2018-01-22 13:00)
DX: E11.52 Type 2 diabetes mellitus with diabetic peripheral angiopathy with gangrene (principal); N18.6 End stage renal disease; I12.0 Hypertensive chronic kidney disease with stage 5 chronic kidney disease or end stage renal disease; M86.671 Other chronic osteomyelitis, right ankle and foot; L03.115 Cellulitis of right lower limb; B19.10 Unspecified viral hepatitis B without hepatic coma; I96 Gangrene, not elsewhere classified; E11.69 Type 2 diabetes mellitus with other specified complication; E11.22 Type 2 diabetes mellitus with diabetic chronic kidney disease; Z99.2 Dependence on renal dialysis; D64.9 Anemia, unspecified; I25.10 Atherosclerotic heart disease of native coronary artery without angina pectoris; I48.91 Unspecified atrial fibrillation; Z95.1 Presence of aortocoronary bypass graft; E78.5 Hyperlipidemia, unspecified; B95.61 Methicillin susceptible Staphylococcus aureus infection as the cause of diseases classified elsewhere; B95.2 Enterococcus as the cause of diseases classified elsewhere; E83.39 Other disorders of phosphorus metabolism; Z79.4 Long term (current) use of insulin
CPT/HCPCS: 36415; 71046-TC-FY; 73630-TC-LT; 73630-TC-RT-FY; 80048; 80053; 82962; 83735; 84100; 85025; 85027; 85610; 85651; 85730; 86140; 87040; 87070; 87186; 87205; 88304-TC; 88307-TC; 88311-TC; 93005; 93010; 94760; 99285-25; J0878; J0885; J1644

== ENCOUNTER 2018-03-26 20:14 | Inpatient (IN) | payer OTHER ==
--- NOTE | 2018-03-26 20:28 | PDOC ---
Rapid Medical Evaluation Chief Complaint: Wound Time Seen by Provider: 03/26/18 20:24 Medical Evaluation: Allergies Allergy/AdvReac Type Severity Reaction Status Date / Time No Known Allergies Allergy Verified 02/03/18 16:43 I have performed a brief in-person evaluation of this patient. The patient presents with a chief complaint of: told to come here from wound care. Right foot infection. Patient is a diabetic. Pertinent physical exam findings: Heavily bandaged right foot I have ordered the following: labs, xray The patient will proceed to the ED for further evaluation. Discharge Disposition - Diagnosis Foot infection - Referrals - Patient Instructions - Post Discharge Activity
--- NOTE | 2018-03-26 21:20 | PDOC ---
Attending Attestation - Resident Resident Name: Jelani Carlson - ED Attending Attestation I have performed the following: I have examined & evaluated the patient, The case was reviewed & discussed with the resident, I agree w/resident's findings & plan, Exceptions are as noted - HPI HPI: 03/26/18 21:17 The patient is a 62 year old male with a significant past medical history of CAD , HTN, HLD, COPD, Hepatitis B, ESRD (on HD TThS), chronic lower back pain and DM who was sent in to the ER by wound care clinic for R foot infection. Pt reports chronic wound on his R foot that has progressively worsened. He denies F /C. Was evaluated by Dr. Carl today and referred to ED for IV antibiotics and ID consult. The patient denies chest pain, shortness of breath, headache, and dizziness. Denies fever, chills, nausea, vomit, diarrhea, and constipation. Denies dysuria, frequency, urgency, and hematuria. Allergies: NKA Past surgical history: None reported. Social history: No reported alcohol, drug, or cigarette use. - Physicial Exam PE: 03/26/18 21:19 "GENERAL: Awake, alert, and fully oriented, in no acute distress. HEAD: No signs of trauma EYES: PERRLA, EOMI, sclera anicteric, conjunctiva clear ENT: Auricles normal inspection, hearing grossly normal, nares patent, oropharynx clear without exudates. Moist mucosa NECK: Nontender, no stepoffs, Normal ROM, supple, no lymphadenopathy, JVD, or masses LUNGS: Breath sounds equal, clear to auscultation bilaterally. No wheezes, and no crackles HEART: Regular rate and rhythm, normal S1 and S2, no murmurs, rubs or gallops ABDOMEN: Soft, nontender, normoactive bowel sounds. No guarding, no rebound. No masses EXTREMITIES: + ulcer to R foot with erythema, purulent drainage NEUROLOGICAL: Cranial nerves II through XII intact. 5/5 strength and sensation in all extremities, Normal speech, normal gait, normal cerebellar function SKIN: Warm, Dry, normal turgor, no rashes or lesions noted." - Medical Decision Making 03/26/18 21:19 62 M with infected RLE wound. No fevers or other signs of systemic illness. - Labs, cultures - ID consult Dr. Taye Fine - Admit
[2018-03-26] MEDS ORDERED: PIPERACILLIN/TAZOB 4.5 GM 4.5 GM in DEXTROSE 5%-WATER 100 ML IVPB ONE (21:24)
[2018-03-26] MEDS ORDERED: VANCOMYCIN 1,500 MG in DEXTROSE 5%-WATER - 500 ML IVPB ONE (21:24)
--- NOTE | 2018-03-26 21:28 | PDOC ---
History of Present Illness - General Chief Complaint: Wound Stated Complaint: RT FOOT INFECTION Time Seen by Provider: 03/26/18 20:24 History Source: Patient Exam Limitations: No Limitations - History of Present Illness Initial Comments: 03/26/18 21:28 62 year-old male with a PMH significant for HTN, HLD, CAD s/p CABG s/p stents, PVD, osteomyelitis of multiple toes, 1stnd, 3rd, 4th toe amputation, NIDDM, Hep B, and ESRD on HD (TTS) sent from wound care clinic by Dr. Kothari for admission. The wound is in the right stump of the 1st big toe and the cellulitis is getting worse per Dr Kothari. 03/26/18 23:38 03/26/18 23:39 Past History - Past Medical History Allergies/Adverse Reactions: Allergies Allergy/AdvReac Type Severity Reaction Status Date / Time No Known Allergies Allergy Verified 03/26/18 20:27 Home Medications: Ambulatory Orders Aspirin [ASA -] 81 mg PO DAILY 12/23/16 Lisinopril [Prinivil] 2.5 mg PO DAILY #30 tablet 05/30/17 Atorvastatin Ca [Lipitor] 10 mg PO DAILY 07/24/17 Metoprolol Succinate [Toprol Xl] 25 mg PO DAILY 07/24/17 Calcium Acetate [Phoslo -] 667 mg PO TIDCM capsule 01/25/18 Tenofovir Disoproxil Fumarate [Viread -] 300 mg PO Q72H #0 cap 01/25/18 Anemia: No Asthma: No Cancer: No Cardiac Disorders: Yes (BYPASS SX, CARDIAC STENTS) CVA: No COPD: No CHF: No ((A "FEW yEARS AGO)) DVT: No Dementia: No Diabetes: Yes Dialysis: Yes (M-W-F) GI Disorders: Yes (Hepatitis b) Disorders: No HTN: Yes Hypercholesterolemia: Yes 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) Seizures: No Thyroid Disease: No - Surgical History Abdominal Surgery: No Appendectomy: Yes Cardiac Surgery: Yes (4 bypass) Cholecystectomy: No Lung Surgery: No Neurologic Surgery: No Orthopedic Surgery: Yes (4 BACK SURGERIES, 3 NECK SURGERY) - Immunization History Immunization Up to Date: Yes - Suicide/Smoking/Psychosocial Hx Smoking Status: No Smoking History: Never smoked Have you smoked in the past 12 months: No Number of Cigarettes Smoked Daily: 0 Information on smoking cessation initiated: No Hx Alcohol Use: No Drug/Substance Use Hx: No Substance Use Type: None Hx Substance Use Treatment: No Review of Systems - Review of Systems Able to Perform ROS?: Yes Is the patient limited Nigerian proficient: No Constitutional: No: Symptoms Reported HEENTM: No: Symptoms Reported Respiratory: No: Symptoms reported Cardiac (ROS): No: Symptoms Reported ABD/GI: No: Symptoms Reported : No: Symptoms Reported Musculoskeletal: No: Symptoms Reported Integumentary: Yes: See HPI Neurological: No: Symptoms reported *Physical Exam - Vital Signs Last Vital Signs Temp Pulse Resp BP Pulse Ox 98.7 F 101 H 21 H 138/75 97 03/26/18 20:18 03/26/18 20:18 03/26/18 20:18 03/26/18 20:18 03/26/18 20:18 - Physical Exam General Appearance: Yes: Nourished, Appropriately Dressed. No: Apparent Distress HEENT: positive: EOMI Respiratory/Chest: positive: Lungs Clear, Normal Breath Sounds. negative: Chest Tender, Respiratory Distress Cardiovascular: positive: Regular Rhythm, Regular Rate, S1, S2 Gastrointestinal/Abdominal: positive: Normal Bowel Sounds, Flat, Soft. negative : Tender Musculoskeletal: positive: Normal Inspection. negative: CVA Tenderness Extremity: positive: Other Heart Score/ECG Review - P and ID Atrial Enlargement: Left ("Possible") ED Treatment Course - LABORATORY CBC & Chemistry Diagram: 03/26/18 21:30 03/26/18 21:30 Medical Decision Making - Medical Decision Making 03/26/18 21:[address] Kothari. Will start vanc-zosyn and admit. 03/26/18 23:16 EKG: Normal sinus rhythm with sinus arrythmia, possible left atrial enlargement , low voltage QRS, cannot rule out anteroseptal infarct, age undetermined. *DC/Admit/Observation/Transfer Diagnosis at time of Disposition: Foot infection - Discharge Dispostion Decision to Admit order: Yes - Referrals - Patient Instructions - Post Discharge Activity
[2018-03-26] MEDS ORDERED: PIPERACILLIN/TAZOB 4.5 GM 4.5 GM/100 ML BAG IVPB ONE (21:42)
[2018-03-26 22:07] LABS: BASO % 1.3 % (0-2.0); EOS % 1.7 % (0-4.5); HEMATOCRIT 36.4 % (35.4-49); LYMPH % 13.9 % (8-40); MCH 30.2 pg (25.7-33.7); MEAN CELL VOLUME 91.6 fl (80-96); MEAN PLT VOLUME 9.5 fl (7.5-11.1); MONO % 7.5 % (3.8-10.2); NEUT % 75.6 % (42.8-82.8); PLATELET COUNT 258 K/MM3 (134-434); RBC 3.97 M/mm3 (4.00-5.60); RDW 16.3 % (11.9-15.9); WHITE BLOOD COUNT 10.6 K/mm3 (4.0-10.0)
[2018-03-26 22:47] LABS: ALBUMIN 3.6 g/dl (3.4-5.0); ALK PHOS 76 U/L (45-117); ANION GAP 13 MMOL/L (8-16); BILIRUBIN,TOTAL 0.6 mg/dL (0.2-1); BLOOD UREA NITROGEN 56 mg/dL (7-18); CALCIUM 9.1 mg/dL (8.5-10.1); CHLORIDE 104 mmol/L (98-107); CO2 21 mmol/L (21-32); GLUCOSE,RANDOM 116 mg/dL (74-106); POTASSIUM 5.7 mmol/L (3.5-5.1); SGOT/AST 16 U/L (15-37); SGPT/ALT 16 U/L (13-61); SODIUM 138 mmol/L (136-145)
[2018-03-26 22:53] LABS: CREATININE 7.6 mg/dL (0.55-1.3)
[2018-03-27] MEDS ORDERED: SODIUM POLYSTYRENE SULFONATE 15 GM/60 ML BOTTLE PO ONE ×2 (00:03→10:25)
[2018-03-27] MEDS ORDERED: SODIUM CHLORIDE 250 ML IV PRN (00:04)
[2018-03-27] MEDS ORDERED: SODIUM POLYSTYRENE SULFONATE 15 GM/60 ML BOTTLE ONE (00:17)
[2018-03-27] MEDS ORDERED: DEXTROSE 5%-WATER - 50 ML IVPB ONE ×3 (01:48→23:38)
[2018-03-27] MEDS ORDERED: PIPERACILLIN/TAZOBACTAM 2.25 GM VIAL IVPB ONE ×3 (01:48→23:37)
[2018-03-27] MEDS: PIPERACILLIN/TAZOB 2.25 GM 2.25 GM in DEXTROSE 5%-WATER - 50 ML IVPB SCH ×4 (02:19→17:35)
[2018-03-27 03:10] VITALS: BMI 33.9
[2018-03-27] MEDS: HEPARIN NA (PORCINE) 5,000 UNITS/ML 1ML VIAL SQ SCH ×3 (06:19→22:00)
[2018-03-27] MEDS: INSULIN SLIDING SCALE (NOVOLOG) 1 VIAL SQ SCH ×4 (06:19→21:37)
--- NOTE | 2018-03-27 06:57 | HP ---
CHIEF COMPLAINT: nonhealing diabetic wound ulcer PCP: HISTORY OF PRESENT ILLNESS: 62M w/ pmhx of CAD, HTN, HLD, Hep B, ESRD (TThS), DM, and osteomyelitis of multiple toes s/p amputation of R 1st, 3rd, 4th digits was sent to the ED from wound care clinic by Dr. Carl for a developing cellulitis around a non- healing diabetic on his R foot w/ malodorous smell. Pt states he had been getting treatment at the wound clinic and had VNS to place wound vac for him at home. He says that he was sent to the hospital for further ID evaluation and IV antibiotics. He denies f/c, n/v, headaches/dizziness, abd pain, urinary symptoms , but does admit to constipation. Of note, pt missed HD due to non-compliance. 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 Lives at home alone in an apt Family History: Father: HTN, heart disease Allergies No Known Allergies Allergy (Verified 03/26/18 20:27) HOME MEDICATIONS: Home Medications Medication Instructions Recorded Aspirin [ASA -] 81 mg PO DAILY 12/23/16 Lisinopril [Prinivil] 2.5 mg PO DAILY #30 tablet 05/30/17 Atorvastatin Ca [Lipitor] 10 mg PO DAILY 07/24/17 Metoprolol Succinate [Toprol Xl] 25 mg PO DAILY 07/24/17 Calcium Acetate [Phoslo -] 667 mg PO TIDCM capsule 01/25/18 Tenofovir Disoproxil Fumarate 300 mg PO Q72H #0 cap 01/25/18 [Viread -] REVIEW OF SYSTEMS CONSTITUTIONAL: Absent: fever, chills, diaphoresis, generalized weakness, malaise, loss of appetite, weight change HEENT: Absent: rhinorrhea, nasal congestion, throat pain, throat swelling, difficulty swallowing, mouth swelling, ear pain, eye pain, visual changes CARDIOVASCULAR: Absent: chest pain, syncope, palpitations, irregular heart rate, lightheadedness , peripheral edema RESPIRATORY: Absent: cough, shortness of breath, dyspnea with exertion, orthopnea, wheezing, stridor, hemoptysis GASTROINTESTINAL: Absent: abdominal pain, abdominal distension, nausea, vomiting, diarrhea, constipation, melena, hematochezia GENITOURINARY: Absent: dysuria, frequency, urgency, hesitancy, hematuria, flank pain, genital pain MUSCULOSKELETAL: Absent: myalgia, arthralgia, joint swelling, back pain, neck pain SKIN: foul-smelling R foot wound with drainage HEMATOLOGIC/IMMUNOLOGIC: Absent: easy bleeding, easy bruising, lymphadenopathy, frequent infections ENDOCRINE: Absent: unexplained weight gain, unexplained weight loss, heat intolerance, cold intolerance NEUROLOGIC: antalgic gait due to R foot wound, walks with cane Absent: headache, focal weakness or paresthesias, dizziness, unsteady gait, seizure, mental status changes, bladder or bowel incontinence PSYCHIATRIC: Absent: anxiety, depression, suicidal or homicidal ideation, hallucinations. PHYSICAL EXAMINATION Vital Signs - 24 hr 03/26/18 03/27/18 03/27/18 20:18 01:21 01:45 Temperature 98.7 F Pulse Rate 101 H 92 H Pulse Rate [ 85 Left] Respiratory 21 H 20 18 Rate Blood Pressure 138/75 125/85 Blood Pressure 144/113 H [Right Arm] O2 Sat by Pulse 97 99 Oximetry (%) 03/27/18 03/27/18 02:51 03:04 Temperature Pulse Rate 92 H Pulse Rate [ Left] Respiratory 18 18 Rate Blood Pressure 125/85 Blood Pressure [Right Arm] O2 Sat by Pulse 99 Oximetry (%) GENERAL: AAOx3. No acute distress. HEENT: NC/AT. EOMI. LOLA. Moist mucus membranes. NECK: Supple. No LAD/JVD. LUNGS: CTA B/L. Mild expiratory wheezes in b/l lower lung bases. Symmetric chest rise. HEART: RRR. Normal S1, S2. No m/r/g noted. ABDOMEN: Soft, NT/ND. Normactive bowels sounds in all 4Q's. No masses or bruits noted. MUSCULOSKELETAL: Moves all extremities. UPPER EXTREMITIES: 2+ pulses, warm, well-perfused. No cyanosis. No clubbing. No peripheral edema. LOWER EXTREMITIES: 1+ R pedal pulse, 2+ L pedal pulse, warm, well-perfused. No calf tenderness. No peripheral edema. s/p 1st, 3rd, 4th R toe amputations NEUROLOGICAL: Cranial nerves II-XII intact. Normal speech. Walks with cane. PSYCHIATRIC: Cooperative. Good eye contact. Appropriate mood and affect. SKIN: 3x3 cm wound ulcer with purulent drainage on the medial aspect of the distal R 1st metatarsal, granulation tissue noted in border of ulcer. Well- healed, non-draining L foot wound on plantar side CBC, BMP 03/27/18 08:10 03/27/18 08:10 ASSESSMENT/PLAN: 62M w/ pmhx of CAD, HTN, HLD, Hep B, ESRD (TThS), DM, and osteomyelitis of multiple toes s/p amputation of R foot admitted for non-healing R foot wound ulcer. #Diabetic foot ulcer -Vanc and Zosyn given -ID consult (Dr. Kothari); cont w/ Zosyn 2.25 gm -podiatry consult -f/u ESR/CRP -f/u blood and wound cultures -MRI ordered to r/o osteomyelitis -daily wound care #ESRD -nephro consult -HD scheduled for Sat #DM; Diet-controlled. Last A1c (03/17/18) 6.9%. Not currently on DM meds. -BGMs ACHS -ISS #HTN -resume home med Metoprolol Succinate 25 mg PO QD -Losartan 50 mg PO QD (Pt originally on Lisinopril, however pt complains of cough when taking Lisinopril) #CAD -resume home med Aspirin 81 mg PO QD #DVT Ppx -Heparin 5000U SQ TID #FEN -no IVf -recheck lytes in AM -Regular diet, pt requested since DM is controlled; Bacid dispo -admit to med/surg Visit type - Emergency Visit Emergency Visit: Yes ED Registration Date: 03/26/18 Care time: The patient presented to the Emergency Department on the above date and was hospitalized for further evaluation of their emergent condition. - New Patient This patient is new to me today: Yes Date on this admission: 03/27/18 - Critical Care Critical Care patient: No Hospitalist Screening - Colonoscopy Questionnaire Colonoscopy Questionnaire: Colonoscopy Questionnaire - Patient: 50 - 75 years old and never had a screening colonoscopy: Unknown History of colon or rectal polyps, or CA: Unknown History of IBD, Crohn's disease or UC: Unknown History of abdominal radiation therapy as a child: Unknown - Relative: 1 with colon or rectal CA, or polyps at age 60 or younger: Unknown Colon or rectal CA diagnosed at age 45 or younger: Unknown Multiple relatives with colon or rectal CA: Unknown - Outcome: Screening Result: Negative Screen
--- NOTE | 2018-03-27 07:24 | PN ---
Teaching Attending Note Name of Resident: Nayla Peacock ATTENDING PHYSICIAN STATEMENT I saw and evaluated the patient. I reviewed the resident's note and discussed the case with the resident. I agree with the resident's findings and plan as documented. SUBJECTIVE: 62 y/o M sent from wound care clinic for worsening right foot first metatarsal ulcer despite outpatient treatment. PMH significant for DM2, ESRD on HD TTHS, Hep B, CAD, HTN, HLD, Chr Back pain and COPD. OBJECTIVE: GEN: A&Ox3 HEENT: PERRLA, EOMI, MMM CVS: RRR, S1, S2 LUNGS: CTA Abd: Soft, NT, ND, BS+ Ext: Right foot s/p multiple toe amputations, plantar wound with purulent drainage Neuro: Cn2-12 intact, decreased peripheral sensation CBCD WBC 10.6 K/mm3 (4.0-10.0) H 03/26/18 21:30 RBC 3.97 M/mm3 (4.00-5.60) L 03/26/18 21:30 Hgb 12.0 GM/dL (11.7-16.9) 03/26/18 21:30 Hct 36.4 % (35.4-49) 03/26/18 21:30 MCV 91.6 fl (80-96) 03/26/18 21:30 MCHC 33.0 g/dl (32.0-35.9) 03/26/18 21:30 RDW 16.3 % (11.9-15.9) H 03/26/18 21:30 Plt Count 258 K/MM3 (134-434) 03/26/18 21:30 MPV 9.5 fl (7.5-11.1) 03/26/18 21:30 CMP Sodium 138 mmol/L (136-145) 03/26/18 21:30 Potassium 5.7 mmol/L (3.5-5.1) H 03/26/18 21:30 Chloride 104 mmol/L (98-107) 03/26/18 21:30 Carbon Dioxide 21 mmol/L (21-32) 03/26/18 21:30 Anion Gap 13 MMOL/L (8-16) 03/26/18 21:30 BUN 56 mg/dL (7-18) H 03/26/18 21:30 Creatinine 7.6 mg/dL (0.55-1.3) H* 03/26/18 21:30 Creat Clearance w eGFR 7.24 (>60) 03/26/18 21:30 Calcium 9.1 mg/dL (8.5-10.1) 03/26/18 21:30 Total Bilirubin 0.6 mg/dL (0.2-1) 03/26/18 21:30 AST 16 U/L (15-37) 03/26/18 21:30 ALT 16 U/L (13-61) 03/26/18 21:30 Alkaline Phosphatase 76 U/L (45-117) 03/26/18 21:30 Total Protein 8.0 g/dl (6.4-8.2) 03/26/18 21:30 Albumin 3.6 g/dl (3.4-5.0) 03/26/18 21:30 ASSESSMENT AND PLAN: Nonhealing diabetic foot wound Vancomycin ID consult Vascular consult Daily wound dressing Follow cultures Dm2- Last A1c 6.9 controlled without medications AC/HS RISS HTN- Continue home medications Metoprolol. Lisinopril switched to losartan for c/o dry cough CHF as per results of last ECHO with EF 45-50% Continue home medications including Lipitor Patient education on CHF Patient with questionnable compliance and refusing appropriate diet DVT Prophylaxis
[2018-03-27 08:36] LABS: BASO % 1.1 % (0-2.0); EOS % 1.8 % (0-4.5); HEMATOCRIT 34.9 % (35.4-49); HEMOGLOBIN 11.5 GM/dL (11.7-16.9); LYMPH % 14.1 % (8-40); MCH 29.9 pg (25.7-33.7); MCHC 32.9 g/dl (32.0-35.9); MEAN CELL VOLUME 91.1 fl (80-96); MEAN PLT VOLUME 8.7 fl (7.5-11.1); MONO % 8.4 % (3.8-10.2); NEUT % 74.6 % (42.8-82.8); PLATELET COUNT 201 K/MM3 (134-434); RBC 3.83 M/mm3 (4.00-5.60); RDW 16.1 % (11.9-15.9); WHITE BLOOD COUNT 8.8 K/mm3 (4.0-10.0)
--- NOTE | 2018-03-27 09:05 | CONSULT ---
Consult Consult Specialty:: Podiatry - History of Present Illness Chief Complaint: Cellulitis right foot with open wound granulating well. - History Source History Provided By: Patient, Medical Record, Transfer Record Limitations to Obtaining History: Uncooperative - Past Medical History Cardio/Vascular: Yes: CAD, HTN, Hyperlipdemia Pulmonary: Yes: COPD Hepatobiliary: Yes: Hepatitis B Renal/: Yes: Renal Failure, Renal Inusuff, Hemodialysis Infectious Disease: Yes: Other (Hepatitis B) Musculoskeletal: Yes: Chronic low back pain, Other (back pain) Endocrine: Yes: Diabetes Mellitus - Past Surgical History Past Surgical History: Yes: Laminectomy, CABG - Alcohol/Substance Use Hx Alcohol Use: No - Smoking History Smoking history: Never smoked Have you smoked in the past 12 months: No Aproximately how many cigarettes per day: 0 - Social History ADL: Independent History of Recent Travel: Yes ([place] x 1 wk) Home Medications - Allergies Allergies/Adverse Reactions: Allergies Allergy/AdvReac Type Severity Reaction Status Date / Time No Known Allergies Allergy Verified 03/26/18 20:27 - Home Medications Home Medications: Ambulatory Orders Aspirin [ASA -] 81 mg PO DAILY 12/23/16 Lisinopril [Prinivil] 2.5 mg PO DAILY #30 tablet 05/30/17 Atorvastatin Ca [Lipitor] 10 mg PO DAILY 07/24/17 Metoprolol Succinate [Toprol Xl] 25 mg PO DAILY 07/24/17 Calcium Acetate [Phoslo -] 667 mg PO TIDCM capsule 01/25/18 Tenofovir Disoproxil Fumarate [Viread -] 300 mg PO Q72H #0 cap 01/25/18 Family Disease History - Family Disease History Family Disease History: CA: Father, Mother (ovarian) Physical Exam Vital Signs: Vital Signs Temperature 98.7 F 03/26/18 20:18 Pulse Rate 92 H 03/27/18 03:04 Respiratory Rate 18 03/27/18 03:04 Blood Pressure 125/85 03/27/18 03:04 O2 Sat by Pulse Oximetry (%) 99 03/27/18 02:51 Extremities: Yes: Other (wound right foot, +cellulitis, +granulation tissue noted, +mal odor,) Labs: CBC, BMP 03/27/18 08:10 Assessment/Plan cellulitis non compliant diabetic patient open wound grade 3 ID consult. Vascular consult. Wound vac. Awaiting culture results from wound care center. will follow.
[2018-03-27] MEDS: CALCIUM ACETATE 667 MG CAPSULE (FP) PO SCH ×3 (09:08→17:35)
[2018-03-27 09:30] LABS: ALBUMIN 3.2 g/dl (3.4-5.0); ALK PHOS 69 U/L (45-117); ANION GAP 9 MMOL/L (8-16); BILIRUBIN,TOTAL 0.8 mg/dL (0.2-1); BLOOD UREA NITROGEN 59 mg/dL (7-18); CALCIUM 8.4 mg/dL (8.5-10.1); CHLORIDE 103 mmol/L (98-107); CO2 22 mmol/L (21-32); GLUCOSE,RANDOM 120 mg/dL (74-106); POTASSIUM 5.2 mmol/L (3.5-5.1); SGOT/AST 15 U/L (15-37); SGPT/ALT 14 U/L (13-61); SODIUM 134 mmol/L (136-145); TOT PROT 7.2 g/dl (6.4-8.2)
[2018-03-27 09:32] LABS: CREATININE 8.2 mg/dL (0.55-1.3)
[2018-03-27] MEDS ORDERED: LOSARTAN POTASSIUM 50 MG TABLET (FP) PO SCH (10:00)
[2018-03-27] MEDS ORDERED: LISINOPRIL 5 MG TABLET (FP) PO SCH (10:00)
[2018-03-27] MEDS: ASPIRIN 81 MG CHEWABLE TABLETS PO SCH (10:30)
[2018-03-27] MEDS: metoPROLOL SUCCINATE 25 MG TAB.SR.24H (FP) PO SCH (10:30)
[2018-03-27] MEDS: LACTOBACILLUS ACIDOPHILUS 1 TABLET PO SCH (10:30)
--- NOTE | 2018-03-27 11:26 | EKG ---
Test Reason : Blood Pressure : / mmHG Vent. Rate : 089 BPM Atrial Rate : 089 BPM P-R Int : 168 ms QRS Dur : 100 ms QT Int : 382 ms P-R-T Axes : 055 026 011 degrees QTc Int : 464 ms NORMAL SINUS RHYTHM WITH SINUS ARRHYTHMIA POSSIBLE LEFT ATRIAL ENLARGEMENT LOW VOLTAGE QRS CANNOT RULE OUT ANTEROSEPTAL INFARCT (CITED ON OR BEFORE 29-MAY-2017) ABNORMAL ECG WHEN COMPARED WITH ECG OF 20-JAN-2018 12:28, NONSPECIFIC T WAVE ABNORMALITY, WORSE IN INFERIOR LEADS NONSPECIFIC T WAVE ABNORMALITY, WORSE IN LATERAL LEADS Confirmed by PAM MADDEN MD ([id number]) on 03/27/2018 11:25:34 AM Referred By: Confirmed By:PAM MADDEN MD
--- NOTE | 2018-03-27 11:31 | CON.ID ---
Consult Consult Specialty:: infectious diseases Reason for Consultation:: cellulitis of the foot with open wound - History of Present Illness Chief Complaint: pain and swelling of the foot with foul smell History of Present Illness: 62M w/ pmhx of CAD, HTN, HLD, Hep B, ESRD (TThS), DM, and osteomyelitis of multiple toes s/p amputation of R 1st, 3rd, 4th digits coming to the hospital because of cellulitis of the foot associated with foul smell . patients wound is looking well,but the cellulitits is bad and foul smelling leg Pt s had been getting treatment at the wound clinic and had VNS to place wound vac for him at home. patient has recently completed treatment for osteo - History Source History Provided By: Patient Limitations to Obtaining History: No Limitations - Past Medical History Cardio/Vascular: Yes: CAD, HTN, Hyperlipdemia Pulmonary: Yes: COPD Hepatobiliary: Yes: Hepatitis B Renal/: Yes: Renal Failure, Renal Inusuff, Hemodialysis Infectious Disease: Yes: Other (Hepatitis B) Musculoskeletal: Yes: Chronic low back pain, Other (back pain) Endocrine: Yes: Diabetes Mellitus - Past Surgical History Past Surgical History: Yes: Laminectomy, CABG - Alcohol/Substance Use Hx Alcohol Use: No - Smoking History Smoking history: Never smoked Have you smoked in the past 12 months: No Aproximately how many cigarettes per day: 0 - Social History ADL: Independent History of Recent Travel: Yes ([place] x 1 wk) Home Medications - Allergies Allergies/Adverse Reactions: Allergies Allergy/AdvReac Type Severity Reaction Status Date / Time No Known Allergies Allergy Verified 03/26/18 20:27 - Home Medications Home Medications: Ambulatory Orders Aspirin [ASA -] 81 mg PO DAILY 12/23/16 Lisinopril [Prinivil] 2.5 mg PO DAILY #30 tablet 05/30/17 Atorvastatin Ca [Lipitor] 10 mg PO DAILY 07/24/17 Metoprolol Succinate [Toprol Xl] 25 mg PO DAILY 07/24/17 Calcium Acetate [Phoslo -] 667 mg PO TIDCM capsule 01/25/18 Tenofovir Disoproxil Fumarate [Viread -] 300 mg PO Q72H #0 cap 01/25/18 Family Disease History - Family Disease History Family Disease History: CA: Father, Mother (ovarian) Review of Systems - Review of Systems Constitutional: reports: No Symptoms Eyes: reports: No Symptoms HENT: reports: No Symptoms Neck: reports: No Symptoms Cardiovascular: reports: No Symptoms Respiratory: reports: No Symptoms Gastrointestinal: reports: No Symptoms Genitourinary: reports: No Symptoms Musculoskeletal: reports: Extremity Pain Integumentary: reports: Change in Color, Erythema Neurological: reports: No Symptoms Endocrine: reports: No Symptoms Hematology/Lymphatic: reports: No Symptoms Psychiatric: reports: No Symptoms Physical Exam Vital Signs: Vital Signs Temperature 98.7 F 03/26/18 20:18 Pulse Rate 84 03/27/18 09:08 Respiratory Rate 20 03/27/18 09:08 Blood Pressure 125/79 03/27/18 09:08 O2 Sat by Pulse Oximetry (%) 99 03/27/18 02:51 Constitutional: Yes: Well Nourished, Calm, Mild Distress Cardiovascular: Yes: Regular Rate and Rhythm Respiratory: Yes: Regular, CTA Bilaterally Gastrointestinal: Yes: Normal Bowel Sounds, Soft Musculoskeletal: Yes: Other Extremities: Yes: Other Integumentary: Yes: Erythema, Other (cellulitis of the foot) Wound/Incision: Yes: Clean/Dry, Other Neurological: Yes: Alert, Oriented Psychiatric: Yes: Alert, Oriented Labs: CBC, BMP 03/27/18 08:10 03/27/18 08:10 Imaging - Results Chest X-ray: Report Reviewed, Image Reviewed X-ray: Report Reviewed, Image Reviewed Assessment/Plan will aaron nancymikey duffy during dialysis
--- NOTE | 2018-03-27 12:00 | CONSULT ---
Consult - text type - Consultation Consultation Note: Renal Consult for ESRD on HD This is a 62 year old gentleman of ESRD on HD (TTS), DM, Hypertension, PVD, LE wound presented to the ED with LE wound that appears infected. Pt last had dialysis on Friday, missed yesterdays Tx. Denies any sob, cp, abd pain, N/V/D. No fever at the persent time. Is being given IV Abx. Was seen in wound care yesterday. Refusing dialysis today. PMhx: as above Allergies: NKDA Family hx: NC Social hx: no T/A/D ROS: as per HPI Home Medications Medication Instructions Recorded Aspirin [ASA -] 81 mg PO DAILY 12/23/16 Lisinopril [Prinivil] 2.5 mg PO DAILY #30 tablet 05/30/17 Atorvastatin Ca [Lipitor] 10 mg PO DAILY 07/24/17 Metoprolol Succinate [Toprol Xl] 25 mg PO DAILY 07/24/17 Calcium Acetate [Phoslo -] 667 mg PO TIDCM capsule 01/25/18 Tenofovir Disoproxil Fumarate 300 mg PO Q72H #0 cap 01/25/18 [Viread -] Vital Signs Temperature 98.7 F 03/26/18 20:18 Pulse Rate 84 03/27/18 09:08 Respiratory Rate 20 03/27/18 09:08 Blood Pressure 125/79 03/27/18 09:08 O2 Sat by Pulse Oximetry (%) 99 03/27/18 02:51 Intake & Output 03/24/18 03/25/18 03/26/18 03/27/18 23:59 23:59 23:59 23:59 Intake Total 50 Balance 50 Weight 99.79 kg 101.242 kg NAD awake and alert RRR, No M/R CTA, no rales or wheeze soft NT/ND trace LE edema, right foot in dressing CBC, BMP 03/27/18 08:10 03/27/18 08:10 Current Medications Aspirin (Asa -) 81 mg PO DAILY [facility] Last Admin: 03/27/18 10:30 Dose: 81 mg Atorvastatin Calcium (Lipitor -) 10 mg PO HS [facility] Calcium Acetate (Phoslo -) 667 mg PO TIDCM [facility] Last Admin: 03/27/18 11:52 Dose: Not Given Heparin Sodium (Porcine) (Heparin -) 5,000 unit SQ TID [facility] Last Admin: 03/27/18 06:19 Dose: 5,000 unit Piperacillin Sod/Tazobactam (Sod 2.25 gm/ Dextrose) 50 mls @ 100 mls/hr IVPB Q8H-IV [facility]; Protocol Last Admin: 03/27/18 10:30 Dose: 100 mls/hr Sodium Chloride (Normal Saline -) 250 mls @ 3,000 mls/hr IV PRN PRN PRN Reason: Hypotension during Dialysis Stop: 03/28/18 00:04 Insulin Aspart (Novolog Vial Sliding Scale -) 1 vial SQ ACHS [facility]; Protocol Last Admin: 03/27/18 11:51 Dose: Not Given Lactobacillus Acidophilus (Bacid -) 1 tab PO DAILY [facility] Last Admin: 03/27/18 10:30 Dose: 1 tab Losartan Potassium (Cozaar -) 50 mg PO DAILY COUNTS INCLUDE 234 BEDS AT THE [facility] Metoprolol Succinate (Toprol Xl -) 25 mg PO DAILY [facility] Last Admin: 03/27/18 10:30 Dose: 25 mg 62 year old gentleman of ESRD on HD (TTS), DM, Hypertension, PVD, LE wound presented to the ED with LE wound that appears infected. #LE wound with suspected osteomylitis #ESRD on HD #Mild Hyperkalemia #CKD related Anemia #Hypertension pt refusing dialysis today, agreeable to dialysis tomorrow advised to be cautious with potassium containing foods and liquids today Renal Diet, 1.2L fluid restriction Abx as per ID, imaging as per ID Will check Vanco level and re-dose vanco with HD tomorrow cultures results pending Case discussed with ID Thank you Will follow Jose Zavaleta DO
[2018-03-27 17:32] VITALS: TEMP 98
[2018-03-27] MEDS: AMOX TR/POT CLAV 250MG/125MG TABLETS PO SCH (17:35)
--- NOTE | 2018-03-27 18:42 | PN ---
Teaching Attending Note Name of Resident: Ridge Murray ATTENDING PHYSICIAN STATEMENT I saw and evaluated the patient. I reviewed the resident's note and discussed the case with the resident. I agree with the resident's findings and plan as documented with exceptions below. SUBJECTIVE: Patient seen and examined. Denies any right foot pain, fevers/chills or new concerns. Adamantly refuses HD today. OBJECTIVE: Vital Signs Period Temp Pulse Resp BP Sys/Palafox Pulse Ox Last 24 Hr 98.0 F-98.7 F 82-101 18-21 125-144/63-113 97-99 Intake & Output 03/24/18 03/25/18 03/26/18 03/27/18 23:59 23:59 23:59 23:59 Intake Total 50 Balance 50 Weight 220 lb 223 lb 3.2 oz General: sitting in bed in no acute distress Extremities; Right Foot multiple toe amputation, ulcer with granulation foul smelling discharge on medial right foot with some surrounding foot erythema/ swelling, non tender on exam Active Medications Amoxicillin/Clavulanate Potassium (Augmentin - 250mg Tablet) 1 tab PO BIDAC [facility] Last Admin: 03/27/18 17:35 Dose: 1 tab Aspirin (Asa -) 81 mg PO DAILY [facility] Last Admin: 03/27/18 10:30 Dose: 81 mg Atorvastatin Calcium (Lipitor -) 10 mg PO HS [facility] Calcium Acetate (Phoslo -) 667 mg PO TIDCM [facility] Last Admin: 03/27/18 17:35 Dose: Not Given Heparin Sodium (Porcine) (Heparin -) 5,000 unit SQ TID [facility] Last Admin: 03/27/18 15:26 Dose: 5,000 unit Piperacillin Sod/Tazobactam (Sod 2.25 gm/ Dextrose) 50 mls @ 100 mls/hr IVPB Q8H-IV [facility]; Protocol Last Admin: 03/27/18 17:35 Dose: Not Given Sodium Chloride (Normal Saline -) 250 mls @ 3,000 mls/hr IV PRN PRN PRN Reason: Hypotension during Dialysis Stop: 03/28/18 00:04 Vancomycin HCl (Vancomycin 1 Gm Premix -) 1 gm in 200 mls @ 133.333 mls/hr IVPB ONCE ONE; Protocol Stop: 03/28/18 09:29 Insulin Aspart (Novolog Vial Sliding Scale -) 1 vial SQ ACHS [facility]; Protocol Last Admin: 03/27/18 17:35 Dose: Not Given Lactobacillus Acidophilus (Bacid -) 1 tab PO DAILY [facility] Last Admin: 03/27/18 10:30 Dose: 1 tab Losartan Potassium (Cozaar -) 50 mg PO DAILY [facility] Metoprolol Succinate (Toprol Xl -) 25 mg PO DAILY [facility] Last Admin: 03/27/18 10:30 Dose: 25 mg Laboratory Results - last 24 hr 03/26/18 03/26/18 03/27/18 21:30 21:30 08:10 WBC 10.6 H RBC 3.97 L Hgb 12.0 Hct 36.4 MCV 91.6 MCH 30.2 MCHC 33.0 RDW 16.3 H Plt Count 258 MPV 9.5 Absolute Neuts (auto) 8.0 Neutrophils % 75.6 Lymphocytes % 13.9 Monocytes % 7.5 Eosinophils % 1.7 Basophils % 1.3 Nucleated RBC % 0 ESR Sodium 138 134 L Potassium 5.7 H 5.2 H Chloride 104 103 Carbon Dioxide 21 22 Anion Gap 13 9 BUN 56 H 59 H Creatinine 7.6 H* 8.2 H* Creat Clearance w eGFR 7.24 6.64 Random Glucose 116 H 120 H Calcium 9.1 8.4 L Total Bilirubin 0.6 0.8 AST 16 15 ALT 16 14 Alkaline Phosphatase 76 69 C-Reactive Protein 1.2 H Total Protein 8.0 7.2 Albumin 3.6 3.2 L 03/27/18 03/27/18 03/27/18 08:10 08:10 08:10 WBC 8.8 RBC 3.83 L Hgb 11.5 L Hct 34.9 L MCV 91.1 MCH 29.9 MCHC 32.9 RDW 16.1 H Plt Count 201 D MPV 8.7 Absolute Neuts (auto) 6.5 Neutrophils % 74.6 Lymphocytes % 14.1 Monocytes % 8.4 Eosinophils % 1.8 Basophils % 1.1 Nucleated RBC % 0 ESR 78 H Sodium Potassium Chloride Carbon Dioxide Anion Gap BUN Creatinine Creat Clearance w eGFR Random Glucose Calcium Total Bilirubin AST ALT Alkaline Phosphatase C-Reactive Protein Cancelled Total Protein Albumin Microbiology 03/26/18 22:05 Foot - Left Gram Stain - Final ASSESSMENT AND PLAN: 62 yom with PMHx of CAD, HTN, HLD, Hep B, ESRD (TThS), DM, and osteomyelitis of multiple toes s/p amputation of R 1st, 3rd, 4th digits sent from Wound care center with concerns for right foot cellulitis +/- osteomyelitis. -RIght foot cellulitis +/- osteomyelitis -ESRD on HD -CAD -HTN -HLD -ESRD on HD -HYperkalemia -Hep B Plan: ID/podiatry input noted. tati Blum with HD. Prior wound cx reviewed. Adamantly declines HD today. Relays understanding of risks including worsening hyperkalemia, respiratory failure and Kayexalat x 1. Low K diet, fluid restriction 1.2 L ASA/statin/metoprolol. Home TRAVON, confirm home meds ISS, patient refuses diabetic cardiac diet and insists on regular diet. DVTPPX heparin Dispo pending clinical improvement. Plan discussed with patient in detail, all questions answered.
--- NOTE | 2018-03-27 19:09 | PN ---
Physical Exam: SUBJECTIVE: Patient seen and examined this AM. Pt responding in very short one word answers. Says that he was sent for antibiotics from wound care. He denies any systemic symptoms. He denies any pain. OBJECTIVE: Vital Signs Period Temp Pulse Resp BP Sys/Palafox Pulse Ox Last 24 Hr 98.0 F-98.7 F 82-101 18-21 125-144/63-113 97-99 GENERAL: A&O, no acute distress HEAD: Normocephalic, atraumatic. EYES: PERRL, no scleral icterus EARS, NOSE, THROAT: oropharynx clear without exudates. Moist mucous membranes. NECK: supple without lymphadenopathy LUNGS: CTA b/l, no crackles or wheezes HEART: Regular rate and rhythm, normal S1 and S2 without murmur ABDOMEN: Soft, nontender to palpation, normoactive bowel sounds MUSCULOSKELETAL: No bony deformities or tenderness. EXTREMITIES: 2+ pulses, warm, well-perfused. No peripheral edema. Right foot s/ p amputation 1,3,4 digits. 4cm x 4cm wound/ulceration with erythema, serosanguinous drainage and granulation tissue NEUROLOGICAL: Cranial nerves II-XII grossly intact. Normal speech. SKIN: Warm, dry, no rashes or lesions noted Laboratory Results - last 24 hr 03/26/18 03/26/18 03/27/18 21:30 21:30 08:10 WBC 10.6 H RBC 3.97 L Hgb 12.0 Hct 36.4 MCV 91.6 MCH 30.2 MCHC 33.0 RDW 16.3 H Plt Count 258 MPV 9.5 Absolute Neuts (auto) 8.0 Neutrophils % 75.6 Lymphocytes % 13.9 Monocytes % 7.5 Eosinophils % 1.7 Basophils % 1.3 Nucleated RBC % 0 ESR Sodium 138 134 L Potassium 5.7 H 5.2 H Chloride 104 103 Carbon Dioxide 21 22 Anion Gap 13 9 BUN 56 H 59 H Creatinine 7.6 H* 8.2 H* Creat Clearance w eGFR 7.24 6.64 Random Glucose 116 H 120 H Calcium 9.1 8.4 L Total Bilirubin 0.6 0.8 AST 16 15 ALT 16 14 Alkaline Phosphatase 76 69 C-Reactive Protein 1.2 H Total Protein 8.0 7.2 Albumin 3.6 3.2 L 03/27/18 03/27/18 03/27/18 08:10 08:10 08:10 WBC 8.8 RBC 3.83 L Hgb 11.5 L Hct 34.9 L MCV 91.1 MCH 29.9 MCHC 32.9 RDW 16.1 H Plt Count 201 D MPV 8.7 Absolute Neuts (auto) 6.5 Neutrophils % 74.6 Lymphocytes % 14.1 Monocytes % 8.4 Eosinophils % 1.8 Basophils % 1.1 Nucleated RBC % 0 ESR 78 H Sodium Potassium Chloride Carbon Dioxide Anion Gap BUN Creatinine Creat Clearance w eGFR Random Glucose Calcium Total Bilirubin AST ALT Alkaline Phosphatase C-Reactive Protein Cancelled Total Protein Albumin Active Medications Generic Name Dose Route Start Last Admin Trade Name Freq PRN Reason Stop Dose Admin Amoxicillin/Clavulanate Potassium 1 tab 03/27/18 16:30 03/27/18 17:35 Augmentin - 250mg Tablet PO 1 tab BIDAC [facility] Administration Aspirin 81 mg 03/27/18 10:00 03/27/18 10:30 Asa - PO 81 mg DAILY [facility] Administration Atorvastatin Calcium 10 mg 03/27/18 22:00 Lipitor - PO HS [facility] Calcium Acetate 667 mg 03/27/18 08:00 03/27/18 17:35 Phoslo - PO Not Given TIDCM [facility] Heparin Sodium (Porcine) 5,000 unit 03/27/18 06:00 03/27/18 15:26 Heparin - SQ 5,000 unit TID [facility] Administration Piperacillin Sod/Tazobactam 50 mls @ 100 mls/hr 03/27/18 03:00 03/27/18 17:35 Sod 2.25 gm/ Dextrose IVPB Not Given Q8H-IV [facility] Protocol Sodium Chloride 250 mls @ 3,000 mls/hr 03/27/18 00:04 Normal Saline - IV 03/28/18 00:04 PRN PRN Hypotension during Dialysis Vancomycin HCl 1 gm in 200 mls @ 133.333 mls/hr 03/28/18 08:00 Vancomycin 1 Gm Premix - IVPB 03/28/18 09:29 ONCE ONE Protocol Insulin Aspart 1 vial 03/27/18 07:00 03/27/18 17:35 Novolog Vial Sliding Scale - SQ Not Given ACHS [facility] Protocol Lactobacillus Acidophilus 1 tab 03/27/18 10:00 03/27/18 10:30 Bacid - PO 1 tab DAILY [facility] Administration Losartan Potassium 50 mg 03/27/18 10:00 Cozaar - PO DAILY [facility] Metoprolol Succinate 25 mg 03/27/18 10:00 03/27/18 10:30 Toprol Xl - PO 25 mg DAILY [facility] Administration ASSESSMENT/PLAN: 62M w/ pmhx of CAD, HTN, HLD, Hep B, ESRD (TThS), DM, and osteomyelitis of multiple toes s/p amputation of R 1st, 3rd, 4th digits was sent to the ED from wound care clinic by Dr. Carl for a developing cellulitis around a non- healing diabetic on his R foot w/ malodorous smell. RLE foot wound -ID consult appreciated Zosyn 2.25 gm Q8 IV, Vanco 1gm IV once, Pt with no access, Augmentin 250 mg PO BIDAC -Podietry consult appreciated Wound Vac -Will continue to attempt peripheral access -Pt states he will leave 03/28 AM -Wound Care consult appreciated HTN -Lisinopril 2.5 mg PO Daily -Toprol XL 25 mg PO Daily HLD -Lipitor 10 mg PO HS -ASA 81 Daily ESRD (TThS) -Nephrology consult appreciated -For HD in AM -Fluid restriction 1.2 L Daily Hep B -Viread 300 mg PO Q72H DM -Pt states his DM is controlled by diet -BGMs DVT Prophylaxis -Heparin 5000 units SQ TID FEN -Fluids: none -Electrolytes: No electrolyte abnormalities, BMP in AM -Nutrition: Pt refusing diabetic diet, Requests regular diet only Disposition Med/Surg Visit type - Emergency Visit Emergency Visit: Yes ED Registration Date: 03/26/18 Care time: The patient presented to the Emergency Department on the above date and was hospitalized for further evaluation of their emergent condition. - New Patient This patient is new to me today: Yes Date on this admission: 03/27/18 - Critical Care Critical Care patient: No
[2018-03-27] MEDS ORDERED: ATORVASTATIN CA 10 MG TABLET (FP) PO SCH (22:00)
[2018-03-28] MEDS: PIPERACILLIN/TAZOB 2.25 GM 2.25 GM in DEXTROSE 5%-WATER - 50 ML IVPB SCH ×2 (01:15→09:42)
--- NOTE | 2018-03-28 05:51 | PN ---
Progress Note (short form) - Note Progress Note: Vascular Surgery Pt seen and examined. Dressing changed. Right foot wound looks good Clean with granulation ID and podiatry on case. Cont vac therapy. Garrett Hanson DO
[2018-03-28] MEDS: INSULIN SLIDING SCALE (NOVOLOG) 1 VIAL SQ SCH ×2 (06:16→13:27)
[2018-03-28] MEDS: AMOX TR/POT CLAV 250MG/125MG TABLETS PO SCH (06:16)
[2018-03-28] MEDS: HEPARIN NA (PORCINE) 5,000 UNITS/ML 1ML VIAL SQ SCH ×2 (06:16→14:08)
[2018-03-28] MEDS ORDERED: PIPERACILLIN/TAZOBACTAM 2.25 GM VIAL IVPB ONE (07:43)
[2018-03-28] MEDS ORDERED: DEXTROSE 5%-WATER - 50 ML IVPB ONE (07:43)
[2018-03-28] MEDS ORDERED: VANCOMYCIN 1 GM PREMIX - 1 GM/200 ML BAG IVPB ONE (08:00)
[2018-03-28 08:06] LABS: EOS % 2.3 % (0-4.5); HEMATOCRIT 35.2 % (35.4-49); HEMOGLOBIN 11.3 GM/dL (11.7-16.9); LYMPH % 13.7 % (8-40); MCH 29.3 pg (25.7-33.7); MEAN CELL VOLUME 91.5 fl (80-96); MONO % 8.2 % (3.8-10.2); NEUT % 74.8 % (42.8-82.8); PLATELET COUNT 184 K/MM3 (134-434); RBC 3.85 M/mm3 (4.00-5.60); WHITE BLOOD COUNT 8.6 K/mm3 (4.0-10.0)
[2018-03-28 08:18] LABS: ALBUMIN 3.2 g/dl (3.4-5.0); ALK PHOS 68 U/L (45-117); ANION GAP 15 MMOL/L (8-16); BILIRUBIN,TOTAL 0.7 mg/dL (0.2-1); BLOOD UREA NITROGEN 65 mg/dL (7-18); CALCIUM 8.7 mg/dL (8.5-10.1); CHLORIDE 103 mmol/L (98-107); CO2 18 mmol/L (21-32); GLUCOSE,RANDOM 103 mg/dL (74-106); MAGNESIUM 2.4 mg/dL (1.8-2.4); POTASSIUM 5.6 mmol/L (3.5-5.1); SGOT/AST 11 U/L (15-37); SGPT/ALT 16 U/L (13-61); SODIUM 137 mmol/L (136-145); TOT PROT 7.4 g/dl (6.4-8.2)
[2018-03-28] MEDS: LACTOBACILLUS ACIDOPHILUS 1 TABLET PO SCH ×2 (08:55→11:46)
--- NOTE | 2018-03-28 09:02 | PN ---
Progress Note (short form) - Note Progress Note: Patient seen in dialysis. No pain. Wants to go home. Tmax 93.[address], wbc=8.6, improving cellulitis chronic wound Continue vac dressings. Will follow till dc. Antibiotics as per dr. powell.
[2018-03-28] MEDS ORDERED: CEFAZOLIN 3 GM in DEXTROSE 5%-WATER - 50 ML IVPB ONE (09:16)
[2018-03-28 09:24] LABS: CREATININE 8.8 mg/dL (0.55-1.3)
[2018-03-28 10:35] VITALS: BP 119/66; PULSE 87
--- NOTE | 2018-03-28 10:46 | PN ---
Progress Note (short form) - Note Progress Note: Renal follow up for ESRD on Hd pt seen and examnined on HD Pt with 5 mins left in Tx, BP low UF goal ~2.5l access with good flow no complaints getting IV Vanco on Hd Vital Signs Temperature 98.0 F 03/27/18 17:31 Pulse Rate 87 03/28/18 10:15 Respiratory Rate 18 03/28/18 10:15 Blood Pressure 119/66 03/28/18 10:15 O2 Sat by Pulse Oximetry (%) 99 03/27/18 21:00 NAD Right foot in dressing CBC, BMP 03/28/18 06:40 03/28/18 06:40 Current Medications Amoxicillin/Clavulanate Potassium (Augmentin - 250mg Tablet) 1 tab PO BIDAC [facility] Last Admin: 03/28/18 06:16 Dose: 1 tab Aspirin (Asa -) 81 mg PO DAILY [facility] Last Admin: 03/27/18 10:30 Dose: 81 mg Atorvastatin Calcium (Lipitor -) 10 mg PO HS [facility] Last Admin: 03/27/18 21:33 Dose: 10 mg Calcium Acetate (Phoslo -) 667 mg PO TIDCM [facility] Last Admin: 03/27/18 17:35 Dose: Not Given Heparin Sodium (Porcine) (Heparin -) 5,000 unit SQ TID [facility] Last Admin: 03/28/18 06:16 Dose: 5,000 unit Piperacillin Sod/Tazobactam (Sod 2.25 gm/ Dextrose) 50 mls @ 100 mls/hr IVPB Q8H-IV [facility]; Protocol Last Admin: 03/28/18 09:42 Dose: 100 mls/hr Sodium Chloride (Normal Saline -) 250 mls @ 3,000 mls/hr IV PRN PRN PRN Reason: Hypotension during Dialysis Stop: 03/28/18 00:04 Insulin Aspart (Novolog Vial Sliding Scale -) 1 vial SQ ACHS [facility]; Protocol Last Admin: 03/28/18 06:16 Dose: Not Given Lactobacillus Acidophilus (Bacid -) 1 tab PO DAILY [facility] Last Admin: 03/28/18 08:55 Dose: 1 tab Losartan Potassium (Cozaar -) 50 mg PO DAILY [facility] Metoprolol Succinate (Toprol Xl -) 25 mg PO DAILY [facility] Last Admin: 03/27/18 10:30 Dose: 25 mg 62 year old gentleman of ESRD on HD (TTS), DM, Hypertension, PVD, LE wound presented to the ED with LE wound that appears infected. #LE wound with suspected osteomylitis #ESRD on HD #Mild Hyperkalemia #CKD related Anemia #Hypertension Tolerating HD well today UF goal as tolerated Abx on HD ID follow up Podiatry follow up Jose Zavaleta DO
--- NOTE | 2018-03-28 11:32 | PN ---
Teaching Attending Note Name of Resident: Ridge Murray ATTENDING PHYSICIAN STATEMENT I saw and evaluated the patient. I reviewed the resident's note and discussed the case with the resident. I agree with the resident's findings and plan as documented with exceptions below. SUBJECTIVE: Patient seen and examined, in HD, wants to go home. OBJECTIVE: Vital Signs Period Temp Pulse Resp BP Sys/Palafox Pulse Ox Last 24 Hr 98.0 F 75-98 18-18 98-133/53-87 99 Intake & Output 03/25/18 03/26/18 03/27/18 03/28/18 23:59 23:59 23:59 23:59 Intake Total 440 Balance 440 Weight 220 lb 223 lb 3.2 oz General: in no acute distress Extremities: right foot dressing, declined further exam Active Medications Amoxicillin/Clavulanate Potassium (Augmentin - 250mg Tablet) 1 tab PO BIDAC [facility] Last Admin: 03/28/18 06:16 Dose: 1 tab Aspirin (Asa -) 81 mg PO DAILY [facility] Last Admin: 03/27/18 10:30 Dose: 81 mg Atorvastatin Calcium (Lipitor -) 10 mg PO HS [facility] Last Admin: 03/27/18 21:33 Dose: 10 mg Calcium Acetate (Phoslo -) 667 mg PO TIDCM [facility] Last Admin: 03/27/18 17:35 Dose: Not Given Heparin Sodium (Porcine) (Heparin -) 5,000 unit SQ TID [facility] Last Admin: 03/28/18 06:16 Dose: 5,000 unit Piperacillin Sod/Tazobactam (Sod 2.25 gm/ Dextrose) 50 mls @ 100 mls/hr IVPB Q8H-IV [facility]; Protocol Last Admin: 03/28/18 09:42 Dose: 100 mls/hr Sodium Chloride (Normal Saline -) 250 mls @ 3,000 mls/hr IV PRN PRN PRN Reason: Hypotension during Dialysis Stop: 03/28/18 00:04 Insulin Aspart (Novolog Vial Sliding Scale -) 1 vial SQ ACHS [facility]; Protocol Last Admin: 03/28/18 06:16 Dose: Not Given Lactobacillus Acidophilus (Bacid -) 1 tab PO DAILY [facility] Last Admin: 03/28/18 08:55 Dose: 1 tab Losartan Potassium (Cozaar -) 50 mg PO DAILY [facility] Metoprolol Succinate (Toprol Xl -) 25 mg PO DAILY [facility] Last Admin: 03/27/18 10:30 Dose: 25 mg Laboratory Results - last 24 hr 03/28/18 03/28/18 03/28/18 06:40 06:40 06:40 WBC 8.6 RBC 3.85 L Hgb 11.3 L Hct 35.2 L MCV 91.5 MCH 29.3 MCHC 32.0 RDW 16.0 H Plt Count 184 MPV 9.0 Absolute Neuts (auto) 6.5 Neutrophils % 74.8 Lymphocytes % 13.7 Monocytes % 8.2 Eosinophils % 2.3 Basophils % 1.0 Nucleated RBC % 0 Sodium 137 Potassium 5.6 H Chloride 103 Carbon Dioxide 18 L Anion Gap 15 BUN 65 H Creatinine 8.8 H* Creat Clearance w eGFR 6.12 Random Glucose 103 Calcium 8.7 Phosphorus 7.0 H Magnesium 2.4 Total Bilirubin 0.7 AST 11 L ALT 16 Alkaline Phosphatase 68 Total Protein 7.4 Albumin 3.2 L Random Vancomycin 13.8 L Microbiology 03/26/18 22:05 Foot - Left Gram Stain - Final 03/26/18 22:05 Foot - Left Wound Culture - Preliminary Staphylococcus Coagulase Neg 03/26/18 20:53 Blood - Peripheral Venous Blood Culture - Preliminary NO GROWTH OBTAINED AFTER 24 HOURS, INCUBATION TO CONTINUE FOR 4 DAYS. 03/26/18 20:40 Blood - Peripheral Venous Blood Culture - Preliminary NO GROWTH OBTAINED AFTER 24 HOURS, INCUBATION TO CONTINUE FOR 4 DAYS. ASSESSMENT AND PLAN: 62 yom with PMHx of CAD, HTN, HLD, Hep B, ESRD (TThS), DM, and osteomyelitis of multiple toes s/p amputation of R 1st, 3rd, 4th digits sent from Wound care center with concerns for right foot cellulitis +/- osteomyelitis. -RIght foot cellulitis +/- osteomyelitis -ESRD on HD -CAD -HTN -HLD -ESRD on HD -HYperkalemia -Hep B Plan: ID/podiatry input noted. tati Blum with HD given today. Prior wound cx reviewed. Discussed with Dr. Hanson, wound looks good,MRi unlikely benefit as discussed with him Discussed with Dr Kothari, follow up with Dr. Queen for further recs. HD today ASA/statin/metoprolol. Home TRAVON, confirm home meds ISS, patient refuses diabetic cardiac diet and insists on regular diet. DVTPPX heparin Dispo pending clinical improvement. Plan discussed with patient in detail, all questions answered.
[2018-03-28] MEDS: CALCIUM ACETATE 667 MG CAPSULE (FP) PO SCH ×2 (11:44→11:45)
[2018-03-28] MEDS: ASPIRIN 81 MG CHEWABLE TABLETS PO SCH (11:45)
[2018-03-28] MEDS: metoPROLOL SUCCINATE 25 MG TAB.SR.24H (FP) PO SCH (11:45)
--- NOTE | 2018-03-28 12:22 | PN ---
Progress Note, Physician History of Present Illness: Pt is alert, afebrile. Insists on being discharged today. Rt foot wound vac in place. Denies abd pain/diarrhea, fever, chills, or rash. Has no specific complaints. - Current Medication List Current Medications: Active Medications Amoxicillin/Clavulanate Potassium (Augmentin - 250mg Tablet) 1 tab PO BIDAC [facility] Last Admin: 03/28/18 06:16 Dose: 1 tab Aspirin (Asa -) 81 mg PO DAILY [facility] Last Admin: 03/28/18 11:45 Dose: 81 mg Atorvastatin Calcium (Lipitor -) 10 mg PO HS [facility] Last Admin: 03/27/18 21:33 Dose: 10 mg Calcium Acetate (Phoslo -) 667 mg PO TIDCM [facility] Last Admin: 03/28/18 11:45 Dose: 667 mg Heparin Sodium (Porcine) (Heparin -) 5,000 unit SQ TID [facility] Last Admin: 03/28/18 06:16 Dose: 5,000 unit Piperacillin Sod/Tazobactam (Sod 2.25 gm/ Dextrose) 50 mls @ 100 mls/hr IVPB Q8H-IV [facility]; Protocol Last Admin: 03/28/18 09:42 Dose: 100 mls/hr Sodium Chloride (Normal Saline -) 250 mls @ 3,000 mls/hr IV PRN PRN PRN Reason: Hypotension during Dialysis Stop: 03/28/18 00:04 Insulin Aspart (Novolog Vial Sliding Scale -) 1 vial SQ ACHS [facility]; Protocol Last Admin: 03/28/18 06:16 Dose: Not Given Lactobacillus Acidophilus (Bacid -) 1 tab PO DAILY [facility] Last Admin: 03/28/18 11:46 Dose: Not Given Losartan Potassium (Cozaar -) 50 mg PO DAILY [facility] Last Admin: 03/28/18 11:45 Dose: 50 mg Metoprolol Succinate (Toprol Xl -) 25 mg PO DAILY [facility] Last Admin: 03/28/18 11:45 Dose: 25 mg - Objective Vital Signs: Vital Signs Temperature 98.0 F 03/27/18 17:31 Pulse Rate 87 03/28/18 10:15 Respiratory Rate 18 03/28/18 10:15 Blood Pressure 119/66 03/28/18 10:15 O2 Sat by Pulse Oximetry (%) 99 03/27/18 21:00 Constitutional: Yes: No Distress, Calm Cardiovascular: Yes: Regular Rate and Rhythm Respiratory: Yes: Regular Gastrointestinal: Yes: Normal Bowel Sounds, Soft Integumentary: Yes: WNL Wound/Incision: Yes: Other (Rt foot wound vac) Labs: CBC, BMP 03/28/18 06:40 03/28/18 06:40 Microbiology 03/26/18 22:05 Foot - Left Gram Stain - Final 03/26/18 22:05 Foot - Left Wound Culture - Preliminary Staphylococcus Coagulase Neg 03/26/18 20:53 Blood - Peripheral Venous Blood Culture - Preliminary NO GROWTH OBTAINED AFTER 24 HOURS, INCUBATION TO CONTINUE FOR 4 DAYS. 03/26/18 20:40 Blood - Peripheral Venous Blood Culture - Preliminary NO GROWTH OBTAINED AFTER 24 HOURS, INCUBATION TO CONTINUE FOR 4 DAYS. Problem List - Problems (1) Amputated toe Code(s): Z89.429 - ACQUIRED ABSENCE OF OTHER TOE(S), UNSPECIFIED SIDE (2) Cellulitis Code(s): L03.90 - CELLULITIS, UNSPECIFIED Qualifiers: (3) Coronary arteriosclerosis Code(s): I25.10 - ATHSCL HEART DISEASE OF [place] CORONARY ARTERY W/O ANG PCTRS (4) Diabetic foot infection Code(s): E11.628 - TYPE 2 DIABETES MELLITUS WITH OTHER SKIN COMPLICATIONS; L08.9 - LOCAL INFECTION OF THE SKIN AND SUBCUTANEOUS TISSUE, UNSP (5) ESRD (end stage renal disease) on dialysis Code(s): N18.6 - END STAGE RENAL DISEASE; Z99.2 - DEPENDENCE ON RENAL DIALYSIS (6) Gangrene of toe of right foot Code(s): I96 - GANGRENE, NOT ELSEWHERE CLASSIFIED (7) Hypertension Code(s): I10 - ESSENTIAL (PRIMARY) HYPERTENSION (8) Osteomyelitis of right foot Code(s): M86.9 - OSTEOMYELITIS, UNSPECIFIED Qualifiers: Osteomyelitis type: unspecified type Qualified Code(s): M86.9 - Osteomyelitis, unspecified Assessment/Plan Pt with PMH of DM, Rt foot wound infection s/p treatment for Osteomyelitis, Rt foot toes amputation, ESRD on HD presenting with Rt foot wound infection - pt insisting on discharge home - suggest continue Vancomycin IV post HD x 5 more doses, Levaquin 500 mg po Q48hrs x 6 more doses if discharge -- needs regular wound care followup , wound vac currently in place -- d/w pt importance of compliance with treatment. Instructed to seek immediate medical attention especially if develops fever/chills, abdominal pain/diarrhea
--- NOTE | 2018-03-28 14:47 | DS ---
Physical Exam: SUBJECTIVE: Patient seen and examined this morning during dialysis. No overnight events noted. He says he plans to leave today and is requesting to be discharged. OBJECTIVE: Vital Signs Period Temp Pulse Resp BP Sys/Palafox Pulse Ox Last 24 Hr 98.0 F 75-98 - 98-133/53-87 99 PHYSICAL EXAM GENERAL: A&O, no acute distress HEAD: Normocephalic, atraumatic. EYES: PERRL, no scleral icterus EARS, NOSE, THROAT: oropharynx clear without exudates. Moist mucous membranes. NECK: supple without lymphadenopathy LUNGS: CTA b/l, no crackles or wheezes HEART: Regular rate and rhythm, normal S1 and S2 without murmur ABDOMEN: Soft, nontender to palpation, normoactive bowel sounds MUSCULOSKELETAL: No bony deformities or tenderness. EXTREMITIES: 2+ pulses, warm, well-perfused. No peripheral edema. wound vac in tact, bandage surrounding is clean and dry NEUROLOGICAL: Cranial nerves II-XII grossly intact. Normal speech. SKIN: Warm, dry, no rashes or lesions noted LABS Laboratory Results - last 24 hr 03/28/18 03/28/18 03/28/18 06:40 06:40 06:40 WBC 8.6 RBC 3.85 L Hgb 11.3 L Hct 35.2 L MCV 91.5 MCH 29.3 MCHC 32.0 RDW 16.0 H Plt Count 184 MPV 9.0 Absolute Neuts (auto) 6.5 Neutrophils % 74.8 Lymphocytes % 13.7 Monocytes % 8.2 Eosinophils % 2.3 Basophils % 1.0 Nucleated RBC % 0 Sodium 137 Potassium 5.6 H Chloride 103 Carbon Dioxide 18 L Anion Gap 15 BUN 65 H Creatinine 8.8 H* Creat Clearance w eGFR 6.12 Random Glucose 103 Calcium 8.7 Phosphorus 7.0 H Magnesium 2.4 Total Bilirubin 0.7 AST 11 L ALT 16 Alkaline Phosphatase 68 Total Protein 7.4 Albumin 3.2 L Random Vancomycin 13.8 L IMAGING: Right foot Radiograph: No significant interval change. S/p 1st, 3rd, 4th to amputation. Fragmentation of the distal 1st metatarsal with surrounding tissue swelling. CXR: Cardiomegaly with mild pulmonary venous congestion HOSPITAL COURSE: Date of Admission:03/26/18 Date of Discharge: 03/28/18 62M w/ pmhx of CAD, HTN, HLD, Hep B, ESRD (TThS), DM, and osteomyelitis of multiple toes s/p amputation of R 1st, 3rd, 4th digits was sent to the ED from wound care clinic by Dr. Carl for a developing cellulitis around a non- healing diabetic on his R foot w/ malodorous smell. He was given Vancomycin and Zosyn in the ED and admitted for continuation of IV Abx. His peripheral access was lost and multiple providers were unable to insert an additional IV. He was given a 2 doses of Augmentin PO, and given IV Vancomycin with HD on the morning of discharge. He was seen by vascular surgery/wound care who recommended continuation of the wound vac and continued wound care. He was seen by nephrology who managed his Hemodialysis while inpatient. He was seen by Podiatry who recommended continued wound care and antibiotics. He was seen by ID who recommended PO levaquin 500 Q48 hours for 5 doses (10 total days) and IV Vancomycin following dialysis 3 times weekly for 5 total doses outpatient as the patient was demanding to be discharged. He was deemed medically safe for discharge with the abx as previously mentioned, a wound vac with VNS, and follow up with Wound Care as an outpatient. Minutes to complete discharge: 45 <Ridge Murray - Last Filed: 03/28/18 14:28> Physical Exam: He also received Zosyn with HD. <Yahaira Berg - Last Filed: 03/28/18 14:57> Discharge Summary Reason For Visit: GANGRENE OF TOE OF RIGHT FOOT Current Active Problems Foot infection (Acute) - Home Medications Comprehensive Discharge Medication List: Ambulatory Orders Aspirin [ASA -] 81 mg PO DAILY 12/23/16 Lisinopril [Prinivil] 2.5 mg PO DAILY #30 tablet 05/30/17 Atorvastatin Ca [Lipitor] 10 mg PO DAILY 07/24/17 Metoprolol Succinate [Toprol Xl] 25 mg PO DAILY 07/24/17 Calcium Acetate [Phoslo -] 667 mg PO TIDCM capsule 01/25/18 Tenofovir Disoproxil Fumarate [Viread -] 300 mg PO Q72H #0 cap 01/25/18 Lactobacillus Acidophilus [Bacid -] 1 tab PO DAILY #30 tab 03/28/18 Vancomycin/0.9 % Sod Chloride [Vanco 1 Gram/250 ml-0.9% NaCl] 1 gm IV ASDIR #5 plast..bag 03/28/18 levoFLOXacin [Levaquin -] 500 mg PO Q48H #6 tablet 03/28/18 <Ridge Murray - Last Filed: 03/28/18 14:28> Current Active Problems Foot infection (Acute) <Yahaira Berg - Last Filed: 03/28/18 14:57> Condition: Stable - Instructions Diet, Activity, Other Instructions: You were treated with antibiotics for your wound infection. You were seen by vascular surgeon and advised outpatient wound care follow up. You were seen by infectious disease and are recommended medications as below: You should take Levaquin 500 mg, one tablet every other day for 6 doses You should also receive Vancomycin 1 gm IV after dialysis for 5 total doses You should take the Bacid once daily by mouth Your telegraphic typewriter repairer Dr. Zavaleta is aware of the vancomyin to be given with Hemodialysis. Please make sure your telegraphic typewriter repairer administers Vancomycin after hemodialysis. Continue other home medications as before. It is very important that you continue to follow up in the Wound Clinic for continued monitoring and treatment of your wound. You are being discharged with a referral for visiting nurse service to help you maintain and change the wound vac. Follow up with your primary doctor in 1 week Follow up with Dr. Hanson, Dr. Carl and wound care clinic in 1 week. If you begin to have fevers, chills, nausea, vomiting, diarrhea, sever pain, swelling or drainage from your wound, you should call your doctor or return to the Emergency Department immediately. Referrals: Alicia Kothari MD [Staff Physician] - Christofer Carl DPM [Staff Physician] - Disposition: VNS/HOME HEALTH CARE This patient is new to me today: No Emergency Visit: Yes ED Registration Date: 03/26/18 Care time: The patient presented to the Emergency Department on the above date and was hospitalized for further evaluation of their emergent condition. Critical Care patient: No - Discharge Referral Referred to [facility] No <Ridge Murray - Last Filed: 03/28/18 14:28>
[2018-03-29 06:36] LABS: HEP B CORE AB, TOT Positive (Negative)
[2018-03-29 12:08] LABS: HBSAG SCREEN Positive (Negative)
== END 2018-03-28 14:56 | disposition home health service (06) | DRG 602 ==
LOC: JER 20:14 → JERBED 23:07 → J8W 03-27 01:39
PROVIDERS: ADMIT Internal Medicine; ATTEND Hospitalist
PROC: 5A1D70Z Performance of Urinary Filtration, Intermittent, Less than 6 Hours Per Day (ICD-10-PCS; principal; 2018-03-28)
DX: L03.115 Cellulitis of right lower limb (principal); N18.6 End stage renal disease; I12.0 Hypertensive chronic kidney disease with stage 5 chronic kidney disease or end stage renal disease; B19.10 Unspecified viral hepatitis B without hepatic coma; M86.8X8 Other osteomyelitis, other site; L97.518 Non-pressure chronic ulcer of other part of right foot with other specified severity; E11.52 Type 2 diabetes mellitus with diabetic peripheral angiopathy with gangrene; E11.621 Type 2 diabetes mellitus with foot ulcer; B95.7 Other staphylococcus as the cause of diseases classified elsewhere; I25.10 Atherosclerotic heart disease of native coronary artery without angina pectoris; I10 Essential (primary) hypertension; E78.5 Hyperlipidemia, unspecified; J44.9 Chronic obstructive pulmonary disease, unspecified; L08.9 Local infection of the skin and subcutaneous tissue, unspecified; E11.628 Type 2 diabetes mellitus with other skin complications; E11.22 Type 2 diabetes mellitus with diabetic chronic kidney disease; M54.5 Low back pain; E87.5 Hyperkalemia; Z89.421 Acquired absence of other right toe(s); Z91.11 Patient's noncompliance with dietary regimen; Z95.1 Presence of aortocoronary bypass graft; Z95.5 Presence of coronary angioplasty implant and graft; Z99.2 Dependence on renal dialysis
CPT/HCPCS: 36415; 71045-TC-FY; 73630-TC-RT-FY; 80048; 80053; 82962; 83735; 84100; 85025; 85651; 86140; 86704; 86706; 86708; 86803; 87040; 87070; 87205; 87340; 93005; 93010; 99285-25; G0277; G0463-25; G0480; J1644

== ENCOUNTER 2018-07-30 07:44 | Day surgery (SDC) | payer OTHER ==
[2018-07-29 13:45] VITALS: BMI 33.4
[2018-07-30 08:35] LABS: HEMATOCRIT 44.9 % (35.4-49); HEMOGLOBIN 15.3 GM/dL (11.7-16.9); MCH 32.9 pg (25.7-33.7); MCHC 34.2 g/dl (32.0-35.9); MEAN CELL VOLUME 96.3 fl (80-96); MEAN PLT VOLUME 8.3 fl (7.5-11.1); PLATELET COUNT 228 K/MM3 (134-434); RBC 4.67 M/mm3 (4.00-5.60); RDW 14.4 % (11.9-15.9); WHITE BLOOD COUNT 9.3 K/mm3 (4.0-10.0)
[2018-07-30 08:57] LABS: ANION GAP 14 MMOL/L (8-16); BLOOD UREA NITROGEN 27 mg/dL (7-18); CALCIUM 9.4 mg/dL (8.5-10.1); CHLORIDE 103 mmol/L (98-107); CO2 22 mmol/L (21-32); CREATININE 5.5 mg/dL (0.55-1.3); GLUCOSE,RANDOM 76 mg/dL (74-106); SODIUM 138 mmol/L (136-145)
[2018-07-30] MEDS ORDERED: ETOMIDATE 20 MG/10 ML AMPUL IVPUSH ONE (09:38)
[2018-07-30 11:08] VITALS: PULSE 89
[2018-07-30 12:06] VITALS: BP 149/85; TEMP 98.6
--- NOTE | 2018-07-31 18:04 | PATH ---
Surgical Pathology Report Patient Name: ELSIE JENSEN [facility]. Rec. #: [id number] /Age/Gender: 1955 (Age: 62) / M Account: [id number] Location: ASU-ENDOSCOPY Taken: 07/30/2018 Received: 07/30/2018 Reported: 07/31/2018 Physicians: Nacho Hunter D.O. Specimen(s) Received A: BX DUODENUM 2ND PORTION B: BX PYLORUS C: BX BODY OF STOMACH D: BX GASTRIC POLYP (FUNDUS) E: BX GE JUNCTION F: BX PROXIMAL TRANSVERSE COLON G: BX RIGHT COLON H: BX RIGHT COLON POLYP (X2) I: POLYP HEPATIC FLEXURE J: POLYP SPLENIC FLEXURE K: BX POLYP DESCENDING COLON L: BX TRANSVERSE COLON M: BX DESCENDING COLON POLYP N: BX DESCENDING COLON (MICROSCOPIC COLITIS) Clinical History History of colon polyps, diarrhea, GERD Postoperative diagnosis: Duodenitis, gastritis, polyp in fundus, hiatal hernia, colon polyp Final Diagnosis A. DUODENUM SECOND PORTION, BIOPSY: DUODENAL MUCOSA WITH CHRONIC DUODENITIS. SEPARATE FRAGMENTS OF GASTRIC MUCOSA WITH REACTIVE GASTROPATHY. B. PYLORUS, BIOPSY: GASTRIC MUCOSA WITH REACTIVE GASTROPATHY. IMMUNOSTAIN FOR H. PYLORI IS NEGATIVE. NEGATIVE FOR INTESTINAL METAPLASIA. C. BODY OF STOMACH, BIOPSY: GASTRIC MUCOSA WITH MILD CHRONIC GASTRITIS. IMMUNOSTAIN FOR H. PYLORI IS NEGATIVE. NEGATIVE FOR INTESTINAL METAPLASIA. D. FUNDUS, GASTRIC POLYP, BIOPSY: GASTRIC MUCOSA WITH FOCAL FOVEOLAR HYPERPLASIA. IMMUNOSTAIN FOR H. PYLORI IS NEGATIVE. NEGATIVE FOR INTESTINAL METAPLASIA. E. GE JUNCTION, BIOPSY: GASTROESOPHAGEAL JUNCTIONAL MUCOSA WITH REFLUX ESOPHAGITIS AND INTESTINAL METAPLASIA. NEGATIVE FOR DYSPLASIA. F. PROXIMAL TRANSVERSE COLON polyp POLYP, POLYPECTOMY: TUBULAR ADENOMA. G. RIGHT COLON, BIOPSY: COLONIC MUCOSA WITH REACTIVE LYMPHOID AGGREGATE IN THE LAMINA PROPRIA. NO HISTOLOGIC EVIDENCE OF ACTIVE COLITIS OR GRANULOMATOUS INFLAMMATION. H. RIGHT COLON POLYP X 2, POLYPECTOMY: TUBULAR ADENOMA, 2 FRAGMENTS. I. HEPATIC FLEXURE POLYP, BIOPSY: POLYPOID COLONIC MUCOSA WITH REACTIVE LYMPHOID AGGREGATES IN THE LAMINA PROPRIA. J. SPLENIC FLEXURE POLYP, POLYPECTOMY: TUBULAR ADENOMA. K. DESCENDING COLONPOLYP, POLYPECTOMY: TUBULAR ADENOMA. L. TRANSVERSE COLON, BIOPSY: COLONIC MUCOSA WITH REACTIVE LYMPHOID AGGREGATE IN THE LAMINA PROPRIA. NO HISTOLOGIC EVIDENCE OF ACTIVE COLITIS OR GRANULOMATOUS INFLAMMATION. M. DESCENDING COLON POLYP, POLYPECTOMY: TUBULAR ADENOMA. N. DESCENDING COLON, BIOPSY: COLONIC MUCOSA WITH NO SIGNIFICANT PATHOLOGIC CHANGE. NO HISTOLOGIC EVIDENCE OF ACTIVE COLITIS OR GRANULOMATOUS INFLAMMATION. Electronically Signed Carmen Edwards M.D. Gross Description A. Received in formalin, labeled "biopsy duodenum second portion" are 4 cummings, irregular portions of soft tissue ranging from 0.2-0.4 cm. in greatest dimension. The specimens are submitted in toto in one cassette. B. Received in formalin, labeled "biopsy pylorus and angularis" are 2 cummings, irregular portions of soft tissue measuring 0.2 and 0.5 cm. in greatest dimension. The specimens are submitted in toto in one cassette. C. Received in formalin, labeled "biopsy body of stomach" are 3 cummings, irregular portions of soft tissue ranging from 0.2-0.4 cm. in greatest dimension. The specimens are submitted in toto in one cassette. D. Received in formalin, labeled "biopsy gastric polyp" is a cummings, irregular portion of soft tissue measuring 0.4 cm. in greatest dimension. The specimen is submitted in toto in one cassette. E. Received in formalin, labeled "biopsy GE junction" is a cummings, irregular portion of soft tissue measuring 0.4 cm. in greatest dimension. The specimen is submitted in toto in one cassette. F. Received in formalin, labeled "polyp proximal transverse colon" are 6 cummings, irregular portions of soft tissue averaging 0.3 cm. in greatest dimension. The specimens are submitted in toto in one cassette. G. Received in formalin, labeled "biopsy right colon" are 3 cummings, irregular portions of soft tissue averaging 0.2 cm. in greatest dimension. The specimens are submitted in toto in one cassette. H. Received in formalin, labeled "polyp right colon" are 7 cummings, irregular portions of soft tissue ranging from 0.1-0.3 cm. in greatest dimension. The specimens are submitted in toto in one cassette. I. Received in formalin, labeled "polyp hepatic flexure" is a cummings, irregular portion of soft tissue measuring 0.2 cm. in greatest dimension. The specimen is submitted in toto in one cassette. J. Received in formalin, labeled "polyp splenic flexure" is a cummings, irregular portion of soft tissue measuring 0.3 cm. in greatest dimension. The specimen is submitted in toto in one cassette. K. Received in formalin, labeled "polyp descending colon a cummings, polypoid portion of soft tissue" is a cummings, polypoid portion of soft tissue measuring 0.5 cm. in greatest dimension. The specimen is submitted in toto in one cassette. L. Received in formalin, labeled "biopsy transverse colon" are 3 cummings, irregular portions of soft tissue ranging from 0.3-0.6 cm. in greatest dimension. The specimens are submitted in toto in one cassette. M. Received in formalin, labeled "polyp descending colon" is a cummings, irregular portion of soft tissue measuring 0.3 cm. in greatest dimension. The specimen is submitted in toto in one cassette. N. Received in formalin, labeled "biopsy descending colon" are 3 cummings, irregular portions of soft tissue averaging 0.3 cm. in greatest dimension. The specimens are submitted in toto in one cassette. __ DL/07/30/2018 saudi07/30/2018
== END 2018-07-30 11:45 | disposition home or self-care (01) ==
LOC: JASU-ENDO 07:44
PROVIDERS: ATTEND Internal Medicine Gastroenterology
PROC: 0DBF8ZX Excision of Right Large Intestine, Via Natural or Artificial Opening Endoscopic, Diagnostic (ICD-10-PCS; 2018-07-30)
PROC: 0DBL8ZX Excision of Transverse Colon, Via Natural or Artificial Opening Endoscopic, Diagnostic (ICD-10-PCS; 2018-07-30)
PROC: 0DBN8ZX Excision of Sigmoid Colon, Via Natural or Artificial Opening Endoscopic, Diagnostic (ICD-10-PCS; 2018-07-30)
PROC: 0DB98ZX Excision of Duodenum, Via Natural or Artificial Opening Endoscopic, Diagnostic (ICD-10-PCS; 2018-07-30)
PROC: 0DB68ZX Excision of Stomach, Via Natural or Artificial Opening Endoscopic, Diagnostic (ICD-10-PCS; 2018-07-30)
PROC: 0DB48ZX Excision of Esophagogastric Junction, Via Natural or Artificial Opening Endoscopic, Diagnostic (ICD-10-PCS; 2018-07-30)
PROC: 0DBM8ZX Excision of Descending Colon, Via Natural or Artificial Opening Endoscopic, Diagnostic (ICD-10-PCS; principal; 2018-07-30 09:00)
DX: Z12.11 Encounter for screening for malignant neoplasm of colon (principal); Z86.010 Personal history of colon polyps; D12.4 Benign neoplasm of descending colon; D12.3 Benign neoplasm of transverse colon; K64.8 Other hemorrhoids; K29.70 Gastritis, unspecified, without bleeding; K44.9 Diaphragmatic hernia without obstruction or gangrene; K29.80 Duodenitis without bleeding
CPT/HCPCS: 36415; 80048; 85027; 88305-TC; 88342-TC

== ENCOUNTER 2018-08-05 20:22 | Inpatient (IN) | payer OTHER ==
--- NOTE | 2018-08-05 21:09 | PDOC ---
Rapid Medical Evaluation Chief Complaint: Wound Time Seen by Provider: 08/05/18 20:59 Medical Evaluation: Allergies Allergy/AdvReac Type Severity Reaction Status Date / Time No Known Allergies Allergy Verified 03/26/18 20:27 08/05/18 21:03 I have performed a brief in-person evaluation of this patient. The patient presents with a chief complaint of: Sent in for admission for R foot infection by Dr Bennett (wants pt admitted and for consult for Dr Kothari and Valentin). H/o DM, osteo of multiple toes of R foot, s/p amputations, (pseudomonas and VR EC faecium on prior wound cx 03/17, pseudomonas sen to levaquin/zosyn, faecium sen to daptomycin and linezolid), HTN, HLD, hep B, ESRD on HD Pertinent physical exam findings:Stable and well gail, defer rest to ED provider I have ordered the following:labs/XR The patient will proceed to the ED for further evaluation. Discharge Disposition - Diagnosis Cellulitis Qualifiers: Site of cellulitis: extremity Site of cellulitis of extremity: lower extremity Laterality: right Qualified Code(s): L03.115 - Cellulitis of right lower limb - Referrals - Patient Instructions - Post Discharge Activity
[2018-08-05 22:02] LABS: BASO % 1.2 % (0-2.0); HEMATOCRIT 37.1 % (35.4-49); HEMOGLOBIN 12.9 GM/dL (11.7-16.9); LYMPH % 13.5 % (8-40); MCH 33.4 pg (25.7-33.7); MCHC 34.7 g/dl (32.0-35.9); MEAN CELL VOLUME 96.1 fl (80-96); MEAN PLT VOLUME 8.6 fl (7.5-11.1); MONO % 9.8 % (3.8-10.2); NEUT % 73.5 % (42.8-82.8); PLATELET COUNT 212 K/MM3 (134-434); RBC 3.85 M/mm3 (4.00-5.60); RDW 14.6 % (11.9-15.9); WHITE BLOOD COUNT 10.2 K/mm3 (4.0-10.0)
[2018-08-05 22:27] LABS: ALBUMIN 3.6 g/dl (3.4-5.0); ALK PHOS 82 U/L (45-117); ANION GAP 6 MMOL/L (8-16); BILIRUBIN,TOTAL 0.4 mg/dL (0.2-1); BLOOD UREA NITROGEN 39 mg/dL (7-18); CALCIUM 8.6 mg/dL (8.5-10.1); CHLORIDE 107 mmol/L (98-107); CO2 25 mmol/L (21-32); CREATININE 5.7 mg/dL (0.55-1.3); GLUCOSE,RANDOM 99 mg/dL (74-106); POTASSIUM 5.2 mmol/L (3.5-5.1); SGOT/AST 19 U/L (15-37); SGPT/ALT 23 U/L (13-61); SODIUM 138 mmol/L (136-145); TOT PROT 7.6 g/dl (6.4-8.2)
[2018-08-05 22:44] LABS: ERYTHROCYTE SEDIMENTATION RATE 38 mm/hr (0-20)
[2018-08-06] MEDS ORDERED: SODIUM CHLORIDE 0.9% 1000 ML INFUS.BAG IV ONE (00:28)
[2018-08-06] MEDS ORDERED: LINEZOLID 600 MG PREMIX BAG 600 MG in PREMIX 300 IVPB ONE (00:30)
[2018-08-06] MEDS ORDERED: MEROPENEM 500 MG in DEXTROSE 5%-WATER 100 ML IVPB ONE (00:32)
--- NOTE | 2018-08-06 00:57 | PDOC ---
History of Present Illness - General Chief Complaint: Wound Stated Complaint: [id number] Time Seen by Provider: 08/05/18 20:59 Past History - Past Medical History Allergies/Adverse Reactions: Allergies Allergy/AdvReac Type Severity Reaction Status Date / Time No Known Allergies Allergy Verified 03/26/18 20:27 Home Medications: Ambulatory Orders Aspirin [ASA -] 81 mg PO DAILY 12/23/16 Lisinopril [Prinivil] 2.5 mg PO DAILY #30 tablet 05/30/17 Atorvastatin Ca [Lipitor] 10 mg PO DAILY 07/24/17 Metoprolol Succinate [Toprol Xl] 25 mg PO DAILY 07/24/17 Tenofovir Disoproxil Fumarate [Viread -] 300 mg PO Q72H #0 cap 01/25/18 Fluticasone Prop 0.05% Nasal [Flonase -] 1 - 2 spray NS ASDIR 07/29/18 Pantoprazole Sodium [Protonix -] 20 mg PO HS #30 tablet.ec 07/30/18 Anemia: No Asthma: No Cancer: No Cardiac Disorders: Yes (BYPASS SX, CARDIAC STENTS) CVA: No COPD: No CHF: No ((A "FEW YEARS AGO)) DVT: No Dementia: No Diabetes: Yes Dialysis: Yes (M-W-F) GI Disorders: No Disorders: No HTN: Yes Hypercholesterolemia: Yes 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) Seizures: No Thyroid Disease: No - Surgical History Abdominal Surgery: No Appendectomy: Yes Cardiac Surgery: Yes (4 bypass) Cholecystectomy: No Lung Surgery: No Neurologic Surgery: No Orthopedic Surgery: Yes (4 BACK SURGERIES, 3 NECK SURGERY) - Immunization History Immunization Up to Date: Yes - Suicide/Smoking/Psychosocial Hx Smoking Status: No Smoking History: Never smoked Have you smoked in the past 12 months: No Number of Cigarettes Smoked Daily: 0 Information on smoking cessation initiated: No Hx Alcohol Use: No Drug/Substance Use Hx: No Substance Use Type: None Hx Substance Use Treatment: No *Physical Exam - Vital Signs Last Vital Signs Temp Pulse Resp BP Pulse Ox 98.4 F 83 19 91/49 L 98 08/05/18 21:00 08/05/18 21:00 08/05/18 21:00 08/05/18 21:00 08/05/18 21:00 - Physical Exam General Appearance: No: Apparent Distress Respiratory/Chest: positive: Lungs Clear, Normal Breath Sounds. negative: Respiratory Distress Cardiovascular: positive: Regular Rhythm, Regular Rate, S1, S2. negative: Murmur Gastrointestinal/Abdominal: positive: Normal Bowel Sounds, Soft. negative: Tender, Distended, Guarding, Rebound Integumentary: positive: Other (around 2x2 cm ulcer noted to planter surface of R foot below the toes, no malodor from wound site, no discharge, no tenderness or crepitus around site, no gangrene) Neurologic: positive: Alert, Normal Mood/Affect Moderate Sedation - Procedure Monitoring Vital Signs: Procedure Monitoring Vital Signs Temperature 98.4 F 08/05/18 21:00 Pulse Rate 83 08/05/18 21:00 Respiratory Rate 19 08/05/18 21:00 Blood Pressure 91/49 L 08/05/18 21:00 O2 Sat by Pulse Oximetry (%) 98 08/05/18 21:00 ED Treatment Course - LABORATORY CBC & Chemistry Diagram: 08/05/18 21:20 08/05/18 21:20 - ADDITIONAL ORDERS Additional order review: Laboratory Results 08/05/18 21:20 Sodium 138 Potassium 5.2 H Chloride 107 Carbon Dioxide 25 Anion Gap 6 L BUN 39 H Creatinine 5.7 H Creat Clearance w eGFR 10.09 Random Glucose 99 Calcium 8.6 Total Bilirubin 0.4 AST 19 ALT 23 Alkaline Phosphatase 82 C-Reactive Protein 1.4 H Total Protein 7.6 Albumin 3.6 08/05/18 21:20 RBC 3.85 L MCV 96.1 H MCHC 34.7 RDW 14.6 MPV 8.6 Neutrophils % 73.5 Lymphocytes % 13.5 Monocytes % 9.8 Eosinophils % 2.0 Basophils % 1.2 Medical Decision Making - Medical Decision Making 62 y/o M hx of CAD, HTN, HLD, ESRD (on HD M/W/F; last dialysis was today), DM, OM multiple toes s/p amputation R 1st, 3rd and 4th was 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 Carl today for admission for chronic diabetic ulcer on R foot. Patient was going for routine follow-up (was just recently discharged from hospital 2017 for foot infection). Denies fever, discharge from wound (though patient states he does not examine his wound himself). Patient had wound culture from foot 12/2017 which was positive for pseudomonas and VRE (multiple drug resistances); repeat wound culture 02/2018 showed normal skin jm Patient started on Linezolid and Meropenem given prior culture sensitivities Patient to be admitted 08/06/18 00:57 *DC/Admit/Observation/Transfer Diagnosis at time of Disposition: Wound of foot - Discharge Dispostion Decision to Admit order: Yes - Referrals - Patient Instructions - Post Discharge Activity
--- NOTE | 2018-08-06 02:30 | PN ---
Teaching Attending Note Name of Resident: Dave Coon ATTENDING PHYSICIAN STATEMENT I saw and evaluated the patient. I reviewed the resident's note and discussed the case with the resident. I agree with the resident's findings and plan as documented. SUBJECTIVE: Seen and examined; please refer to resident note for further historical details. Tina, this is a 62 y/o CM with a PMH of ESRD on HD, OM with ESBL/ VRE in the past completed IV abx seen by Dr. Kothari (07/02 note from podiatry states that the wound was healed), DM, HTN. 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 Patient has a cain- sized area of redness/ulceration not probing to bone on the plantar aspect of the affected foot; not draining, etc. when I saw it. He denies any issues with it, but states that he has been walking on it more often recently which likely triggered this event. ESR/CRP elevated. Not septic. Admitting to medicine with podiatry consult. Was admitted 12/2017 and 02/2018 for this issue; per his DCS 02/2018 he was discharged on IV Vancomycin x5 more doses and 6 more doses of PO levaquin q48 hours with a wound vac and had R-toes amputated. He was referred to Dr. Hanson in the past per QIAN Brown's DCS 12/2017. 10 sys ROS done and negative aside from HPI PMH, PSH, Social hx, Family hx reviewed Medication Reconciliation pending OBJECTIVE: VS, labs, imaging reviewed NAD, AAO, resting comfortably in bed RLE with plantar ulcer per description in HPI; palpable pulses RRR s1/2 no mgr NT ND +BS CN2-12 wnl, no fnd Normal mood, appropriate behavior 2016 bone scans reviewed Recent PFTs show moderate to severe restriction but didn't have volumes Old micro reviewed; 01/14 culture from superficial wound noted, but the actual wound culture preformed 01/20 shows pseudamonas and multi drug resistant EF (sn to dapto and linezolid) 06/2016 US shows likely R and L-sided infrapopliteal disease ASSESSMENT AND PLAN: Patient presents from his lumber marker's office for DM foot wound eval 1) DM Foot Wound w/ hx DM -Placing on broad spectrum abx and consulting ID -Checking venous and arterial dopplers -Consulting podiatry -Wound care consult -Pain control; check MRI to r/o osteo. Further management per consulting services 2) CAD s/p CABG -No acute issues; continue home meds. 3) ESRD on HD -Consulting Dr. Frazier for HD; QD BMP -As slightly high K on admit repeating now; if continues to be elevated will tx. No EKG changes. 4) HTN -Controlled; continue home meds 5) HLD -Continue home meds 6) Hx Hep B -Continue home meds; no acute issues 7) PVD -Checking US (venous, arterial); [address] Hanson for wound care who is also vascular. FENA -PO fluids -PRN replete -Renal Diet -As tolerated Consults: Podiatry, ID, Wound Care Full Code
--- NOTE | 2018-08-06 03:15 | HP ---
CHIEF COMPLAINT: sent by PCP PCP: Dr. Oz Dominique: Dr. 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 Per the patient, he has had an ulcer on the plantar surface of his right toe which he states has been there for "quite a while", he is unsure of how long. The patient states that he had seen Dr. Carl today after some time and Dr. Carl sent him to the ED because he was concered that the ulcer had become infected again. The patient is unsure if his ulcer looks worse today, as he does not regularly look at his feet. The patient also endorses walking around more often without the aid of his cane. Patient denies chest pain, SOB, fevers, chills, wound drainage, foot pain. ER course was notable for: (1) Bcx sent (2) creatinine 5.7, BUN 39, K+ 5.2 (3) Recent Travel: none PAST MEDICAL HISTORY: see hPI PAST SURGICAL HISTORY: stenting CABG x4 multiple orthopedic surgeries appendectomy Social History: Smoking: denies Alcohol: denies Drugs: denies Family History: non-contributory Allergies No Known Allergies Allergy (Verified 03/26/18 20:27) HOME MEDICATIONS: Home Medications Medication Instructions Recorded Aspirin [ASA -] 81 mg PO DAILY 12/23/16 Lisinopril [Prinivil] 2.5 mg PO DAILY #30 tablet 05/30/17 Atorvastatin Ca [Lipitor] 10 mg PO DAILY 07/24/17 Metoprolol Succinate [Toprol Xl] 25 mg PO DAILY 07/24/17 Tenofovir Disoproxil Fumarate 300 mg PO Q72H #0 cap 01/25/18 [Viread -] Fluticasone Prop 0.05% Nasal 1 - 2 spray NS ASDIR 07/29/18 [Flonase -] Pantoprazole Sodium [Protonix -] 20 mg PO HS #30 tablet.ec 07/30/18 REVIEW OF SYSTEMS CONSTITUTIONAL: Absent: fever, chills, diaphoresis, generalized weakness, malaise, loss of appetite, weight change HEENT: Absent: rhinorrhea, nasal congestion, throat pain, throat swelling, difficulty swallowing, mouth swelling, ear pain, eye pain, visual changes CARDIOVASCULAR: Absent: chest pain, syncope, palpitations, irregular heart rate, lightheadedness , peripheral edema RESPIRATORY: Absent: cough, shortness of breath, dyspnea with exertion, orthopnea, wheezing, stridor, hemoptysis GASTROINTESTINAL: Absent: abdominal pain, abdominal distension, nausea, vomiting, diarrhea, constipation, melena, hematochezia GENITOURINARY: Absent: dysuria, frequency, urgency, hesitancy, hematuria, flank pain, genital pain MUSCULOSKELETAL: Absent: myalgia, arthralgia, joint swelling, back pain, neck pain SKIN: Absent: rash, itching, pallor HEMATOLOGIC/IMMUNOLOGIC: Absent: easy bleeding, easy bruising, lymphadenopathy, frequent infections ENDOCRINE: Absent: unexplained weight gain, unexplained weight loss, heat intolerance, cold intolerance NEUROLOGIC: Absent: headache, focal weakness or paresthesias, dizziness, unsteady gait, seizure, mental status changes, bladder or bowel incontinence PSYCHIATRIC: Absent: anxiety, depression, suicidal or homicidal ideation, hallucinations. PHYSICAL EXAMINATION Vital Signs - 24 hr 08/05/18 21:00 Temperature 98.4 F Pulse Rate 83 Respiratory 19 Rate Blood Pressure 91/49 L O2 Sat by Pulse 98 Oximetry (%) GENERAL: Awake, alert, and fully oriented, in no acute distress. HEAD: Normal with no signs of trauma. NECK: Normal range of motion, supple without lymphadenopathy, JVD, or masses. LUNGS: Breath sounds equal, clear to auscultation bilaterally. No wheezes, and no crackles. No accessory muscle use. HEART: Regular rate and rhythm, normal S1 and S2 without murmur, rub or gallop. ABDOMEN: Soft, nontender, not distended, normoactive bowel sounds, no guarding, no rebound, no masses. No hepatomegaly or splenomegaly. LOWER EXTREMITIES: 2+ pulses, warm, well-perfused. No calf tenderness. No peripheral edema. There is an ulcer on the plantar aspect of the patient's right foot approx. 2cm in diameter. The wound has a clean base without overt necrosis and there is no purulent drainage. There is mild erythema around this area. NEUROLOGICAL: Cranial nerves II-X intact. Normal speech. SKIN: Warm, dry, normal turgor, no rashes or lesions noted, normal capillary refill. Laboratory Results - last 24 hr 08/05/18 08/05/1808/05/19 21:09 21:10 21:20 WBC 10.2 H RBC 3.85 L Hgb 12.9 Hct 37.1 D MCV 96.1 H MCH 33.4 MCHC 34.7 RDW 14.6 Plt Count 212 MPV 8.6 Absolute Neuts (auto) 7.5 Neutrophils % 73.5 Lymphocytes % 13.5 Monocytes % 9.8 Eosinophils % 2.0 Basophils % 1.2 Nucleated RBC % 0 ESR Cancelled 38 H Sodium Potassium Chloride Carbon Dioxide Anion Gap BUN Creatinine Creat Clearance w eGFR Random Glucose Calcium Total Bilirubin AST ALT Alkaline Phosphatase C-Reactive Protein 1.4 H Total Protein Albumin 08/05/18 21:20 WBC RBC Hgb Hct MCV MCH MCHC RDW Plt Count MPV Absolute Neuts (auto) Neutrophils % Lymphocytes % Monocytes % Eosinophils % Basophils % Nucleated RBC % ESR Sodium 138 Potassium 5.2 H Chloride 107 Carbon Dioxide 25 Anion Gap 6 L BUN 39 H Creatinine 5.7 H Creat Clearance w eGFR 10.09 Random Glucose 99 Calcium 8.6 Total Bilirubin 0.4 AST 19 ALT 23 Alkaline Phosphatase 82 C-Reactive Protein 1.4 H Total Protein 7.6 Albumin 3.6 ASSESSMENT/PLAN: The patient is a 62 yo m w/ PMH DM, CKD (on HD MWF), HTN, HLD Who was 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 #Diabetic foot ulcer - patient is afebrile with a white blood cell count within normal limits - patient grew VRE and ESBL in the past - will order Bacid daily - patient status post Linezolid 600 mg in the ER - patient status Meropenem 500 mg in the ER -patients also does not appear to be infected at this time - will consult infectious disease (Dr. Kothari) for further antibiotic management - will consult podiatry (Dr. Carl) for evaluation - will consult vascular surgery (dr. Hanson) for wound care recommendations and evaluation #CKD -on hemodialysis Friday and Friday -will consult nephrology (Dr. Savage) for dialysis while admitted -monitor electrolytes daily as patient potassium was elevated #DM -BGM ACHS -ISS ACHS #FEN -no fluids indicated -monitor electrolytes as above - patient request regular diet #Prophy -heparin 5000 units SQ Q8H #Dispo -admit med surg Visit type - Emergency Visit Emergency Visit: Yes ED Registration Date: 08/06/18 Care time: The patient presented to the Emergency Department on the above date and was hospitalized for further evaluation of their emergent condition. - New Patient This patient is new to me today: Yes Date on this admission: 08/06/18 - Critical Care Critical Care patient: No
[2018-08-06] MEDS: HEPARIN NA (PORCINE) 5,000 UNITS/ML 1ML VIAL SQ SCH ×3 (06:51→22:43)
[2018-08-06] MEDS ORDERED: MEROPENEM 1 GM in DEXTROSE 5%-WATER 100 ML IVPB SCH (07:45)
[2018-08-06] MEDS: INSULIN SLIDING SCALE (NOVOLOG) 1 VIAL SQ SCH ×4 (07:50→22:42)
[2018-08-06] MEDS ORDERED: LACTOBACILLUS ACIDOPHILUS 1 TABLET PO SCH (10:00)
[2018-08-06] MEDS: LISINOPRIL 5 MG TABLET (FP) PO SCH (10:37)
[2018-08-06] MEDS: LACTOBACILLUS ACIDOPHILUS 1 TABLET PO SCH (10:37)
[2018-08-06] MEDS: ASPIRIN 81 MG CHEWABLE TABLETS PO SCH (10:37)
[2018-08-06] MEDS: metoPROLOL SUCCINATE 25 MG TAB.SR.24H (FP) PO SCH (10:37)
[2018-08-06] MEDS: MEROPENEM 1 GM in DEXTROSE 5%-WATER 100 ML IVPB SCH ×2 (10:56→19:19)
[2018-08-06] MEDS ORDERED: SODIUM CHLORIDE 250 ML IV PRN (11:24)
--- NOTE | 2018-08-06 12:32 | CONSULT ---
Consult - text type - Consultation Consultation Note: Renal consult for ESRD on HD This is a 62 year old gentleman with hx of ESRD on HD (MWF), Hypertension, DM, PVD s/p amputation of toe, HLD, hepatitis B, who presented with foot ulcer/ wound. Pt denies any pain or discomfort in the foot. No fever, chills. Last dialysis was yesterday. Denies any sob, cp, leg swelling. For OR procedure tomorrow. PMhx: as above Allergies: NKDA Family hx: NC Social Hx: No T/A/D ROS: as per HPI, all other pertinent ros negative Home Medications Medication Instructions Recorded Aspirin [ASA -] 81 mg PO DAILY 12/23/16 Lisinopril [Prinivil] 2.5 mg PO DAILY #30 tablet 05/30/17 Atorvastatin Ca [Lipitor] 10 mg PO DAILY 07/24/17 Metoprolol Succinate [Toprol Xl] 25 mg PO DAILY 07/24/17 Tenofovir Disoproxil Fumarate 300 mg PO Q72H #0 cap 01/25/18 [Viread -] Fluticasone Prop 0.05% Nasal 1 - 2 spray NS ASDIR 07/29/18 [Flonase -] Pantoprazole Sodium [Protonix -] 20 mg PO HS #30 tablet.ec 07/30/18 Vital Signs Temperature 97.8 F 08/06/18 07:00 Pulse Rate 73 08/06/18 07:00 Respiratory Rate 17 08/06/18 07:00 Blood Pressure 129/71 08/06/18 07:00 O2 Sat by Pulse Oximetry (%) 100 08/06/18 07:00 Intake & Output 08/03/18 08/04/18 08/05/18 08/06/18 23:59 23:59 23:59 23:59 Weight 99.79 kg NAD awake and alert neck supple RRR CTA soft NT/ND no LE edema no focal neurologic defects CBC, BMP 08/05/18 21:20 08/05/18 21:20 Current Medications Aspirin (Asa -) 81 mg PO DAILY [facility] Last Admin: 08/06/18 10:37 Dose: 81 mg Atorvastatin Calcium (Lipitor -) 10 mg PO HS [facility] Heparin Sodium (Porcine) (Heparin -) 5,000 unit SQ TID [facility] Last Admin: 08/06/18 06:51 Dose: 5,000 unit Meropenem 1 gm/ Dextrose 100 mls @ 200 mls/hr IVPB Q8H-IV [facility] Meropenem 1 gm/ Dextrose 100 mls @ 200 mls/hr IVPB Q8H-IV [facility] Stop: 08/07/18 02:29 Last Admin: 08/06/18 10:56 Dose: 200 mls/hr Sodium Chloride (Normal Saline -) 250 mls @ 3,000 mls/hr IV PRN PRN PRN Reason: Hypotension during Dialysis Stop: 08/07/18 11:24 Insulin Aspart (Novolog Vial Sliding Scale -) 1 vial SQ ACHS [facility]; Protocol Last Admin: 08/06/18 12:03 Dose: Not Given Lactobacillus Acidophilus (Bacid -) 1 tab PO DAILY [facility] Last Admin: 08/06/18 10:37 Dose: 1 tab Lisinopril (Prinivil) 2.5 mg PO DAILY [facility] Last Admin: 08/06/18 10:37 Dose: 2.5 mg Metoprolol Succinate (Toprol Xl -) 25 mg PO DAILY [facility] Last Admin: 08/06/18 10:37 Dose: 25 mg Pantoprazole Sodium (Protonix -) 20 mg PO HS [facility] 62 year old gentleman with hx of ESRD on HD (MWF), Hypertension, DM, PVD s/p amputation of toe, HLD, hepatitis B, who presented with foot ulcer/wound. #LE wound/PVD #ESRD on HD #Hyperkalemia #DM #Hyperlipidmeia Continue Abx as per ID for imaging studies to r/o arterial insufficiency possible amputation tomorrow will plan for dialysis in AM Renal diet, 1.2L fluid restriction Continue present antihypertensives Continue insulin as needed Continue statin Thank you Jose Zavaleta DO
--- NOTE | 2018-08-06 13:31 | PN ---
Physical Exam: SUBJECTIVE: Patient seen and examined this AM. He states he is not having any pain in his foot. Denies any fever or chills over night. OBJECTIVE: Vital Signs Period Temp Pulse Resp BP Sys/Palafox Pulse Ox Last 24 Hr 97.8 F-98.4 F 73-84 17-19 91-129/49-71 96-100 GENERAL: A&O, no acute distress HEAD: Normocephalic, atraumatic. EYES: PERRL, no scleral icterus EARS, NOSE, THROAT: oropharynx clear without exudates. Moist mucous membranes. NECK: supple without lymphadenopathy LUNGS: CTA b/l, no crackles or wheezes HEART: Regular rate and rhythm, normal S1 and S2 without murmur ABDOMEN: Soft, nontender to palpation, normoactive bowel sounds EXTREMITIES: warm, well-perfused. No peripheral edema. Left AV fistula, palpable thrill. RLE ulceration, clean, serous drainage, minimal erythema, multiple digit amputations on R and L LE. PSYCHIATRIC: Cooperative. Good eye contact. Appropriate mood and affect. Agitated very easily and frustrated by multiple factors of hospitalization Laboratory Results - last 24 hr 08/05/18 08/05/18 08/05/18 21:09 21:10 21:20 WBC 10.2 H RBC 3.85 L Hgb 12.9 Hct 37.1 D MCV 96.1 H MCH 33.4 MCHC 34.7 RDW 14.6 Plt Count 212 MPV 8.6 Absolute Neuts (auto) 7.5 Neutrophils % 73.5 Lymphocytes % 13.5 Monocytes % 9.8 Eosinophils % 2.0 Basophils % 1.2 Nucleated RBC % 0 ESR Cancelled 38 H Sodium Potassium Chloride Carbon Dioxide Anion Gap BUN Creatinine Creat Clearance w eGFR POC Glucometer Random Glucose Calcium Total Bilirubin AST ALT Alkaline Phosphatase C-Reactive Protein 1.4 H Total Protein Albumin 08/05/18 08/06/18 21:20 07:48 WBC RBC Hgb Hct MCV MCH MCHC RDW Plt Count MPV Absolute Neuts (auto) Neutrophils % Lymphocytes % Monocytes % Eosinophils % Basophils % Nucleated RBC % ESR Sodium 138 Potassium 5.2 H Chloride 107 Carbon Dioxide 25 Anion Gap 6 L BUN 39 H Creatinine 5.7 H Creat Clearance w eGFR 10.09 POC Glucometer 133 Random Glucose 99 Calcium 8.6 Total Bilirubin 0.4 AST 19 ALT 23 Alkaline Phosphatase 82 C-Reactive Protein 1.4 H Total Protein 7.6 Albumin 3.6 Active Medications Generic Name Dose Route Start Last Admin Trade Name Freq PRN Reason Stop Dose Admin Aspirin 81 mg 08/06/18 10:00 08/06/18 10:37 Asa - PO 81 mg DAILY [facility] Administration Atorvastatin Calcium 10 mg 08/06/18 22:00 Lipitor - PO HS [facility] Heparin Sodium (Porcine) 5,000 unit 08/06/18 06:00 08/06/18 06:51 Heparin - SQ 5,000 unit TID [facility] Administration Meropenem 1 gm/ Dextrose 100 mls @ 200 mls/hr 08/06/18 07:45 IVPB Q8H-IV [facility] Meropenem 1 gm/ Dextrose 100 mls @ 200 mls/hr 08/06/18 10:00 08/06/18 10:56 IVPB 08/07/18 02:29 200 mls/hr Q8H-IV [facility] Administration Sodium Chloride 250 mls @ 3,000 mls/hr 08/06/18 11:24 Normal Saline - IV 08/07/18 11:24 PRN PRN Hypotension during Dialysis Insulin Aspart 1 vial 08/06/18 07:00 08/06/18 12:03 Novolog Vial Sliding Scale - SQ Not Given ACHS [facility] Protocol Lactobacillus Acidophilus 1 tab 08/06/18 04:46 08/06/18 10:37 Bacid - PO 1 tab DAILY [facility] Administration Lisinopril 2.5 mg 08/06/18 10:00 08/06/18 10:37 Prinivil PO 2.5 mg DAILY [facility] Administration Metoprolol Succinate 25 mg 08/06/18 10:00 08/06/18 10:37 Toprol Xl - PO 25 mg DAILY [facility] Administration Pantoprazole Sodium 20 mg 08/06/18 22:00 Protonix - PO HS [facility] ASSESSMENT/PLAN: 62 yo m w/ PMH DM, CKD on HD MWF, HLD who 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 likely Osteo Diabetic foot ulcer with likely Osteomyelitis -Sent by podiatry for likely osteo -Foot Xray noted -MRI pending -Discussed with Podiatry who will await MRI and like go to OR for bone resection /Distal foot amputation -Vascular consulted -ID consulted -Meropenem and Linezolid in ED due to prior VRE/MRSA/Pseudomonas, though most recently grew coag negative staph ESRD -on HD MWF, received dialysis prior to admission without any issues -Renal consulted -Trend electrolytes -For HD in AM NIDDM -Lisinopril 2.5 mg PO Daily -BGMs and Insulin sliding scale, pt refusing HLD -Lipitor 10 mg PO HS DVT Prophylaxis -5000 units Heparin SQ TID FEN -Fluids: None -Electrolytes: No electrolyte abnormalities, BMP in AM -Nutrition: Refuses diabetic diet, Regular diet, requesting no dark meat or fish Disposition Med/Surg Visit type - Emergency Visit Emergency Visit: Yes ED Registration Date: 08/06/18 Care time: The patient presented to the Emergency Department on the above date and was hospitalized for further evaluation of their emergent condition. - New Patient This patient is new to me today: Yes Date on this admission: 08/06/18 - Critical Care Critical Care patient: No
--- NOTE | 2018-08-06 14:10 | PN ---
Teaching Attending Note Name of Resident: Ridge Murray ATTENDING PHYSICIAN STATEMENT I saw and evaluated the patient. I reviewed the resident's note and discussed the case with the resident. I agree with the resident's findings and plan as documented. SUBJECTIVE:asymptomatic. denies Cp, SOB, fever, chills, N/V/C/D. has minimal sensation in foot at baseline. had HD yesterday and tolerated session well OBJECTIVE: Last Vital Signs Temp Pulse Resp BP Pulse Ox 97.8 F 73 17 129/71 100 08/06/18 07:00 08/06/18 07:00 08/06/18 07:00 08/06/18 07:00 08/06/18 07:00 General NAD Extremities R foot plantar aspect with 1cm +slough tissue. no active drainage. not tender no surrounding erythema. does not probe to bone. old surgical scars, amputation of the 1st, 3rd,4th,and 5th digits ASSESSMENT AND PLAN: 62yo M wtih PMH ESRD on HD, OM with +ESBL/VRE, DM, HTN, CAD s/p CABG presented to the ER for concern for OM 1. R foot diabetic ulcer- high concern for OM. Elevated ESR/CRP with findings on XR suggestive of OM. will get MRI to further evaluate the extent of it. plan for OR tomorrow for amputation. on Meropenem based on previous sensitivities. Podiatry/ID/vasc surgery on board 2. Hyperkalemia- no indication for emergent HD. will repeat later today 3. ESRD on HD- resume regular HD session 4. HTN- controlled. cont home management 5. DM-will need to med rec cont iss, bgm 6. CAD s/p CABG 7. HCV- tenofovir 8. DVT ppx- hep sq
--- NOTE | 2018-08-06 14:35 | CONSULT ---
Consult Consult Specialty:: Podiatry Pt seen in ER Reason for Consultation:: OM/Cellulitis - History of Present Illness Chief Complaint: wound with infected bone right foot History of Present Illness: New wound right foot with osteomyelitis of foot - History Source Limitations to Obtaining History: Uncooperative - Past Medical History Cardio/Vascular: Yes: CAD, HTN, Hyperlipdemia Pulmonary: Yes: COPD Hepatobiliary: Yes: Hepatitis B Renal/: Yes: Renal Failure, Renal Inusuff, Hemodialysis Infectious Disease: Yes: Other (Hepatitis B) Musculoskeletal: Yes: Chronic low back pain, Other (back pain) Endocrine: Yes: Diabetes Mellitus - Past Surgical History Past Surgical History: Yes: Laminectomy, CABG - Alcohol/Substance Use Hx Alcohol Use: No - Smoking History Smoking history: Never smoked Have you smoked in the past 12 months: No Aproximately how many cigarettes per day: 0 - Social History ADL: Independent History of Recent Travel: Yes ([place] x 1 wk) Home Medications - Allergies Allergies/Adverse Reactions: Allergies Allergy/AdvReac Type Severity Reaction Status Date / Time No Known Allergies Allergy Verified 03/26/18 20:27 - Home Medications Home Medications: Ambulatory Orders Aspirin [ASA -] 81 mg PO DAILY 12/23/16 Lisinopril [Prinivil] 2.5 mg PO DAILY #30 tablet 05/30/17 Atorvastatin Ca [Lipitor] 10 mg PO DAILY 07/24/17 Metoprolol Succinate [Toprol Xl] 25 mg PO DAILY 07/24/17 Tenofovir Disoproxil Fumarate [Viread -] 300 mg PO Q72H #0 cap 01/25/18 Fluticasone Prop 0.05% Nasal [Flonase -] 1 - 2 spray NS ASDIR 07/29/18 Pantoprazole Sodium [Protonix -] 20 mg PO HS #30 tablet.ec 07/30/18 Family Disease History - Family Disease History Family Disease History: CA: Father, Mother (ovarian) Physical Exam Vital Signs: Vital Signs Temperature 97.8 F 08/06/18 07:00 Pulse Rate 73 08/06/18 07:00 Respiratory Rate 17 08/06/18 07:00 Blood Pressure 129/71 08/06/18 07:00 O2 Sat by Pulse Oximetry (%) 100 08/06/18 07:00 Extremities: Yes: Other (+grade 3 wound right cellulitis, -mal odor, + osteomyelitis 2nd & 3rd metatarsal right, deformed right foot) Labs: CBC, BMP 08/05/18 21:20 08/05/18 21:20 Imaging - Results X-ray: Image Reviewed Assessment/Plan om diabetic wound deformed right foot Discussed with patient at length his current situation. Pt fully understands all risks, benefits and alternatives. After discussion with patient we both agreed to schedule him for revision and clean up of his right foot. Patient verbally consented to intervention. Vascular and ID consulted. MRI ordered. CTA ordered. Pt is scheduled for Friday at noon. Will postpone if necessary if testing not completed before OR. Please optimize for OR.
[2018-08-06] MEDS ORDERED: HEPARIN NA (PORCINE) 5,000 UNITS/ML 1ML VIAL ONE (15:01)
[2018-08-06 15:26] VITALS: BMI 33.7
--- NOTE | 2018-08-06 16:43 | EKG ---
Test Reason : Blood Pressure : / mmHG Vent. Rate : 084 BPM Atrial Rate : 084 BPM P-R Int : 192 ms QRS Dur : 116 ms QT Int : 420 ms P-R-T Axes : 052 003 -05 degrees QTc Int : 496 ms SINUS RHYTHM WITH OCCASIONAL PREMATURE VENTRICULAR COMPLEXES POSSIBLE LEFT ATRIAL ENLARGEMENT INCOMPLETE RIGHT BUNDLE BRANCH BLOCK T WAVE ABNORMALITY, CONSIDER ANTERIOR ISCHEMIA PROLONGED QT ABNORMAL ECG WHEN COMPARED WITH ECG OF 26-MAR-2018 22:44, PREMATURE VENTRICULAR COMPLEXES ARE NOW PRESENT INCOMPLETE RIGHT BUNDLE BRANCH BLOCK IS NOW PRESENT MINIMAL CRITERIA FOR ANTEROSEPTAL INFARCT ARE NO LONGER PRESENT Confirmed by ANTHONY SCOTT MD ([id number]) on 08/06/2018 4:42:56 PM Referred By: Confirmed By:ANTHONY SCOTT MD
--- NOTE | 2018-08-06 17:57 | CON.ID ---
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 Per the patient, he has had an ulcer on the plantar surface of his right toe which he states has been there for "quite a while", he is unsure of how long. The patient states that he had seen Dr. Carl today after some time and Dr. Carl sent him to the ED because he was concered that the ulcer had become infected again. The patient is unsure if his ulcer looks worse today, as he does not regularly look at his feet. The patient also endorses walking around more often without the aid of his cane. Patient denies chest pain, SOB, fevers, chills, wound drainage, foot pain. patient known to me from previous admissions and treated for osteo patient has lot of medical issues currently he is feeling ok and we are going to work him up to see if the wound or the bone is infected podiatry planning to take the patient to the operating room and debride the wound - History Source History Provided By: Patient, Medical Record Limitations to Obtaining History: Poor Historian - Past Medical History Cardio/Vascular: Yes: CAD, HTN, Hyperlipdemia Pulmonary: Yes: COPD Hepatobiliary: Yes: Hepatitis B Renal/: Yes: Renal Failure, Renal Inusuff, Hemodialysis Infectious Disease: Yes: Other (Hepatitis B) Musculoskeletal: Yes: Chronic low back pain, Other (back pain) Endocrine: Yes: Diabetes Mellitus - Past Surgical History Past Surgical History: Yes: Laminectomy, CABG - Alcohol/Substance Use Hx Alcohol Use: No - Smoking History Smoking history: Never smoked Have you smoked in the past 12 months: No Aproximately how many cigarettes per day: 0 - Social History ADL: Independent History of Recent Travel: Yes ([place] x 1 wk) Home Medications - Allergies Allergies/Adverse Reactions: Allergies Allergy/AdvReac Type Severity Reaction Status Date / Time No Known Allergies Allergy Verified 03/26/18 20:27 - Home Medications Home Medications: Ambulatory Orders Aspirin [ASA -] 81 mg PO DAILY 12/23/16 Lisinopril [Prinivil] 2.5 mg PO DAILY #30 tablet 05/30/17 Atorvastatin Ca [Lipitor] 10 mg PO DAILY 07/24/17 Metoprolol Succinate [Toprol Xl] 25 mg PO DAILY 07/24/17 Tenofovir Disoproxil Fumarate [Viread -] 300 mg PO Q72H #0 cap 01/25/18 Fluticasone Prop 0.05% Nasal [Flonase -] 1 - 2 spray NS ASDIR 07/29/18 Pantoprazole Sodium [Protonix -] 20 mg PO HS #30 tablet.ec 07/30/18 Family Disease History - Family Disease History Family Disease History: CA: Father, Mother (ovarian) Review of Systems - Review of Systems Constitutional: reports: No Symptoms Eyes: reports: No Symptoms HENT: reports: No Symptoms Neck: reports: No Symptoms Cardiovascular: reports: No Symptoms Respiratory: reports: No Symptoms Gastrointestinal: reports: No Symptoms Genitourinary: reports: No Symptoms Musculoskeletal: reports: No Symptoms Integumentary: reports: Erythema, Wound Neurological: reports: No Symptoms Endocrine: reports: No Symptoms Hematology/Lymphatic: reports: No Symptoms Psychiatric: reports: No Symptoms Physical Exam Vital Signs: Vital Signs Temperature 97.8 F 08/06/18 07:00 Pulse Rate 65 08/06/18 14:34 Respiratory Rate 18 08/06/18 14:34 Blood Pressure 100/56 L 08/06/18 14:34 O2 Sat by Pulse Oximetry (%) 96 08/06/18 14:34 Constitutional: Yes: Well Nourished, No Distress, Calm Eyes: Yes: Conjunctiva Clear Neck: Yes: Supple, Trachea Midline Cardiovascular: Yes: Regular Rate and Rhythm Respiratory: Yes: Regular, CTA Bilaterally Gastrointestinal: Yes: Normal Bowel Sounds, Soft Musculoskeletal: Yes: WNL Extremities: Yes: Other Wound/Incision: Yes: Dressing Dry and Intact, Dressing Removed Neurological: Yes: Alert, Oriented Psychiatric: Yes: Alert, Oriented Labs: CBC, BMP 08/05/18 21:20 08/05/18 21:20 Imaging - Results Chest X-ray: Report Reviewed, Image Reviewed X-ray: Report Reviewed, Image Reviewed Assessment/Plan ASSESSMENT/PLAN: 62 yo m w/ PMH DM, CKD on HD MWF, HLD who was send 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
[2018-08-06] MEDS ORDERED: PIPERACILLIN/TAZOBACTAM 2.25 GM VIAL IVPB ONE (19:02)
[2018-08-06] MEDS: PIPERACILLIN/TAZOB 2.25 GM 2.25 GM in DEXTROSE 5%-WATER - 50 ML IVPB SCH (19:05)
[2018-08-06] MEDS ORDERED: PANTOPRAZOLE 20 MG TABLET (FP) PO SCH (22:00)
[2018-08-06] MEDS ORDERED: ATORVASTATIN CA 10 MG TABLET (FP) PO SCH (22:00)
[2018-08-07] MEDS: PIPERACILLIN/TAZOB 2.25 GM 2.25 GM in DEXTROSE 5%-WATER - 50 ML IVPB SCH ×3 (02:40→17:38)
[2018-08-07] MEDS ORDERED: PIPERACILLIN/TAZOBACTAM 2.25 GM VIAL IVPB ONE ×5 (02:49→23:51)
[2018-08-07] MEDS ORDERED: DEXTROSE 5%-WATER - 50 ML IVPB ONE ×5 (02:50→23:52)
[2018-08-07] MEDS: HEPARIN NA (PORCINE) 5,000 UNITS/ML 1ML VIAL SQ SCH ×2 (05:27→16:04)
[2018-08-07] MEDS: INSULIN SLIDING SCALE (NOVOLOG) 1 VIAL SQ SCH ×4 (06:40→22:27)
[2018-08-07 08:34] LABS: HEMATOCRIT 34.3 % (35.4-49); HEMOGLOBIN 11.9 GM/dL (11.7-16.9); MCH 33.4 pg (25.7-33.7); MCHC 34.8 g/dl (32.0-35.9); MEAN CELL VOLUME 95.9 fl (80-96); MEAN PLT VOLUME 8.7 fl (7.5-11.1); PLATELET COUNT 197 K/MM3 (134-434); RBC 3.58 M/mm3 (4.00-5.60); RDW 14.4 % (11.9-15.9); WHITE BLOOD COUNT 8.7 K/mm3 (4.0-10.0)
[2018-08-07 09:06] LABS: ANION GAP 9 MMOL/L (8-16); BLOOD UREA NITROGEN 50 mg/dL (7-18); CALCIUM 8.3 mg/dL (8.5-10.1); CHLORIDE 106 mmol/L (98-107); CO2 21 mmol/L (21-32); CREATININE 6.7 mg/dL (0.55-1.3); GLUCOSE,RANDOM 113 mg/dL (74-106); MAGNESIUM 2.3 mg/dL (1.8-2.4); PHOSPHOROUS 5.5 mg/dL (2.5-4.9); POTASSIUM 4.9 mmol/L (3.5-5.1); SODIUM 137 mmol/L (136-145)
--- NOTE | 2018-08-07 09:18 | PN ---
Progress Note (short form) - Note Progress Note: Vascular surgery CTA reviewed. Yet not read officially by radiology . Pt has good three vessel runoff into foot. minimal femoral - popliteal disease. Pt to go for revision surgery as per podiatry Garrett Hanson DO
[2018-08-07 09:45] LABS: INR 1.13 (0.83-1.09); PROTHROMBIN TIME (PATIENT) 13.4 SEC (9.7-13.0)
[2018-08-07] MEDS ORDERED: HYDROmorphone HCl 2 MG/ML VIAL IVPUSH ONE (10:15)
--- NOTE | 2018-08-07 10:31 | PN ---
Teaching Attending Note Name of Resident: Ridge Murray ATTENDING PHYSICIAN STATEMENT I saw and evaluated the patient. I reviewed the resident's note and discussed the case with the resident. I agree with the resident's findings and plan as documented. SUBJECTIVE:asymptomatic. currently tolerating HD. deneis CP, SOB, fever, chills , N/V/C/D no foot pain OBJECTIVE: Last Vital Signs Temp Pulse Resp BP Pulse Ox 98.2 F 77 18 118/63 96 08/07/18 07:40 08/07/18 08:20 08/07/18 08:20 08/07/18 08:20 08/06/18 14:34 General NAD CV S1 S2 + lungs CTA anteriorly Extremities fistula LUE ASSESSMENT AND PLAN: 62yo M wtih PMH ESRD on HD, OM with +ESBL/VRE, DM, HTN, CAD s/p CABG presented to the ER for concern for OM 1. R foot OM- NPO for Amputation revision today by podiatry. MRI and CTA awaiting official reads. currently on 2. f/u Cx. Podiatry/ID/vasc surgery on board 2. Hyperkalemia- no indication for emergent HD. refused repeat labs yesterday. today is pending. 3. ESRD on HD- resume regular HD session 4. HTN- controlled. cont home management 5. DM-refuses to take diabetic medications and has not had A1c tested. A1c pending. cont iss, bgm 6. CAD s/p CABG 7. HCV- tenofovir 8. DVT ppx- hep sq
--- NOTE | 2018-08-07 11:14 | PN ---
Physical Exam: SUBJECTIVE: Patient seen and examined this AM in HD, states he is fine but that dinner was lousy last night. Denies any pain or changes in his feet since yesterday. OBJECTIVE: Vital Signs Period Temp Pulse Resp BP Sys/Palafox Pulse Ox Last 24 Hr 97.6 F-98.2 F 65-100 18-20 100-143/50-83 96 GENERAL: A&O, no acute distress HEAD: Normocephalic, atraumatic. EYES: PERRL, no scleral icterus EARS, NOSE, THROAT: oropharynx clear without exudates. Moist mucous membranes. NECK: supple without lymphadenopathy LUNGS: CTA b/l, no crackles or wheezes HEART: Regular rate and rhythm, normal S1 and S2 without murmur ABDOMEN: Soft, nontender to palpation, normoactive bowel sounds EXTREMITIES: warm, well-perfused. No peripheral edema. Left AV fistula, palpable thrill. RLE ulceration, clean, serous drainage, minimal erythema, multiple digit amputations on R and L LE. PSYCHIATRIC: Cooperative. Good eye contact. Appropriate mood and affect. Agitated very easily and frustrated by multiple factors of hospitalization Laboratory Results - last 24 hr 08/07/18 08/07/18 08/07/18 07:50 07:50 07:50 WBC 8.7 RBC 3.58 L Hgb 11.9 Hct 34.3 L MCV 95.9 MCH 33.4 MCHC 34.8 RDW 14.4 Plt Count 197 MPV 8.7 PT with INR INR Sodium 137 Potassium 4.9 Chloride 106 Carbon Dioxide 21 Anion Gap 9 BUN 50 H Creatinine 6.7 H Creat Clearance w eGFR 8.38 Random Glucose 113 H Hemoglobin A1c % 6.9 H Calcium 8.3 L Phosphorus 5.5 H Magnesium 2.3 08/07/18 09:10 WBC RBC Hgb Hct MCV MCH MCHC RDW Plt Count MPV PT with INR 13.40 H INR 1.13 H Sodium Potassium Chloride Carbon Dioxide Anion Gap BUN Creatinine Creat Clearance w eGFR Random Glucose Hemoglobin A1c % Calcium Phosphorus Magnesium Active Medications Generic Name Dose Route Start Last Admin Trade Name Freq PRN Reason Stop Dose Admin Aspirin 81 mg 08/06/18 10:00 08/06/18 10:37 Asa - PO 81 mg DAILY [facility] Administration Atorvastatin Calcium 10 mg 08/06/18 22:00 08/06/18 22:42 Lipitor - PO 10 mg HS [facility] Administration Heparin Sodium (Porcine) 5,000 unit 08/06/18 06:00 08/07/18 05:27 Heparin - SQ Not Given TID [facility] Sodium Chloride 250 mls @ 3,000 mls/hr 08/06/18 11:24 Normal Saline - IV 08/07/18 11:24 PRN PRN Hypotension during Dialysis Piperacillin Sod/Tazobactam 50 mls @ 100 mls/hr 08/06/18 18:30 08/07/18 02:40 Sod 2.25 gm/ Dextrose IVPB 100 mls/hr Q8H-IV [facility] Administration Protocol Insulin Aspart 1 vial 08/06/18 07:00 08/07/18 06:40 Novolog Vial Sliding Scale - SQ Not Given ACHS [facility] Protocol Lactobacillus Acidophilus 1 tab 08/06/18 04:46 08/06/18 10:37 Bacid - PO 1 tab DAILY [facility] Administration Lisinopril 2.5 mg 08/06/18 10:00 08/06/18 10:37 Prinivil PO 2.5 mg DAILY [facility] Administration Metoprolol Succinate 25 mg 08/06/18 10:00 08/06/18 10:37 Toprol Xl - PO 25 mg DAILY [facility] Administration Pantoprazole Sodium 20 mg 08/06/18 22:00 08/06/18 22:42 Protonix - PO 20 mg HS [facility] Administration ASSESSMENT/PLAN: 62 yo m w/ PMH DM, CKD on HD MWF, HLD who was 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 likely Osteo Diabetic foot ulcer with likely Osteomyelitis -Sent by podiatry for likely osteo -Foot Xray noted -MRI pending official read -CT Aorta with runoff noted, segmental occlusion of PT b/l L>R, good runoff to feet b/l -Podiatry consult appreciated, for OR for bone resection/Distal foot amputation this afternoon -Vascular consulted, no vascular surgical intervention at this time -ID consulted, Zosyn for now -prior VRE/MRSA/Pseudomonas, though most recently grew coag negative staph ESRD -on HD MWF, received dialysis prior to admission without any issues -Renal consulted -Trend electrolytes -HD as per nephrology NIDDM -Lisinopril 2.5 mg PO Daily -BGMs and Insulin sliding scale, pt refusing -A1C noted 6.9 HLD -Lipitor 10 mg PO HS DVT Prophylaxis -5000 units Heparin SQ TID FEN -Fluids: None -Electrolytes: No electrolyte abnormalities, BMP in AM -Nutrition: Refuses diabetic diet, Regular diet, requesting no dark meat or fish Disposition Med/Surg Visit type - Emergency Visit Emergency Visit: Yes ED Registration Date: 08/06/18 Care time: The patient presented to the Emergency Department on the above date and was hospitalized for further evaluation of their emergent condition. - New Patient This patient is new to me today: No - Critical Care Critical Care patient: No
[2018-08-07] MEDS ORDERED: BACITRACIN 50,000 UNITS VIAL TP ONE (11:37)
[2018-08-07] MEDS ORDERED: VANCOMYCIN 500 MG VIAL (RESTRICTED TO ID ONLY) IVPB ONE (11:46)
--- NOTE | 2018-08-07 12:32 | PN ---
Progress Note, Physician History of Present Illness: stable for imaging studies - Current Medication List Current Medications: Active Medications Aspirin (Asa -) 81 mg PO DAILY [facility] Last Admin: 08/06/18 10:37 Dose: 81 mg Atorvastatin Calcium (Lipitor -) 10 mg PO HS [facility] Last Admin: 08/06/18 22:42 Dose: 10 mg Heparin Sodium (Porcine) (Heparin -) 5,000 unit SQ TID [facility] Last Admin: 08/07/18 05:27 Dose: Not Given Sodium Chloride (Normal Saline -) 250 mls @ 3,000 mls/hr IV PRN PRN PRN Reason: Hypotension during Dialysis Stop: 08/07/18 11:24 Piperacillin Sod/Tazobactam (Sod 2.25 gm/ Dextrose) 50 mls @ 100 mls/hr IVPB Q8H-IV [facility]; Protocol Last Admin: 08/07/18 12:01 Dose: 100 mls/hr Insulin Aspart (Novolog Vial Sliding Scale -) 1 vial SQ ACHS [facility]; Protocol Last Admin: 08/07/18 12:01 Dose: Not Given Lactobacillus Acidophilus (Bacid -) 1 tab PO DAILY [facility] Last Admin: 08/06/18 10:37 Dose: 1 tab Lisinopril (Prinivil) 2.5 mg PO DAILY [facility] Last Admin: 08/06/18 10:37 Dose: 2.5 mg Metoprolol Succinate (Toprol Xl -) 25 mg PO DAILY [facility] Last Admin: 08/06/18 10:37 Dose: 25 mg Pantoprazole Sodium (Protonix -) 20 mg PO HS [facility] Last Admin: 08/06/18 22:42 Dose: 20 mg - Objective Vital Signs: Vital Signs Temperature 98.2 F 08/07/18 07:40 Pulse Rate 90 08/07/18 11:30 Respiratory Rate 18 08/07/18 11:30 Blood Pressure 130/72 08/07/18 11:30 O2 Sat by Pulse Oximetry (%) 96 08/06/18 14:34 Constitutional: Yes: No Distress, Calm Cardiovascular: Yes: S1, S2 Respiratory: Yes: Regular, CTA Bilaterally Gastrointestinal: Yes: Normal Bowel Sounds, Soft Musculoskeletal: Yes: WNL Extremities: Yes: Other Neurological: Yes: Alert, Oriented Psychiatric: Yes: Alert, Oriented Labs: CBC, BMP 08/07/18 07:50 08/07/18 07:50 INR, PTT INR 1.13 (0.83-1.09) H 08/07/18 09:10 Assessment/Plan ASSESSMENT/PLAN: 62 yo m w/ PMH DM, CKD on HD MWF, HLD who was 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
[2018-08-07] MEDS ORDERED: LIDOCAINE HCL 1%, 10 MG/ML (20ML VIAL) ONE (12:52)
[2018-08-07] MEDS ORDERED: MIDAZOLAM HCL 2 MG/2 ML SINGLE DOSE VIAL ONE (13:26)
[2018-08-07] MEDS ORDERED: PROPOFOL 20 ML ONE ×2 (13:27→14:14)
[2018-08-07] MEDS ORDERED: PROMETHAZINE HCL 25 MG/1 ML VIAL IVPUSH PRN ×2 (13:36→15:04)
[2018-08-07] MEDS ORDERED: oxyCODONE HCL 5 MG TABLET PO PRN ×2 (13:36→15:04)
[2018-08-07] MEDS ORDERED: ONDANSETRON 4 MG/2 ML VIAL IVPUSH PRN ×2 (13:36→15:04)
[2018-08-07] MEDS ORDERED: LIDOCAINE HCL 1%, 10 MG/ML (20ML VIAL) INF ONE (13:43)
[2018-08-07] MEDS ORDERED: VANCOMYCIN 500 MG VIAL (RESTRICTED TO ID ONLY) ONE (14:09)
[2018-08-07] MEDS ORDERED: SODIUM CHLORIDE 250 ML IV PRN (15:04)
--- NOTE | 2018-08-07 15:08 | OP ---
Operative Note - Note: Operative Date: 08/07/18 Pre-Operative Diagnosis: osteomyeltis infected wound right foot Operation: TMA 2nd ray, met head resection 3&4 right, plantar flap Findings: necrotic bone and soft tissue Implants: osteoset mini beads utilized Post-Operative Diagnosis: Same as Pre-op Surgeon: Christofer Carl Anesthesia: MAC Specimens Removed: bone and soft tissue Estimated Blood Loss (mls): 50 Instrument used (Debridements only): scalpel blade saggital saw Drains & Tubes with Location: 07/03" iodoform packing Operative Report Dictated: No
--- NOTE | 2018-08-07 15:29 | PN ---
Progress Note (short form) - Note Progress Note: Pt in OR. Had dialysis earlier in the day. Next dialysis planned for Friday. Jose Zavaleta DO
[2018-08-07] MEDS: ASPIRIN 81 MG CHEWABLE TABLETS PO SCH (16:03)
[2018-08-07] MEDS: LACTOBACILLUS ACIDOPHILUS 1 TABLET PO SCH (16:04)
[2018-08-07] MEDS: metoPROLOL SUCCINATE 25 MG TAB.SR.24H (FP) PO SCH (16:04)
[2018-08-07] MEDS: LISINOPRIL 5 MG TABLET (FP) PO SCH (16:04)
[2018-08-07] MEDS ORDERED: morphine CARPU-JECT 4 MG/1 ML DISP.SYRIN IVPUSH ONE (16:55)
[2018-08-07] MEDS ORDERED: morphine SULFATE 4 MG/ML VIAL IVPUSH ONE (17:15)
[2018-08-07] MEDS ORDERED: INSULIN (NOVOLOG) ASPART 100 UNITS/ML 10ML VIAL ONE (20:35)
[2018-08-07] MEDS: PANTOPRAZOLE 20 MG TABLET (FP) PO SCH (22:21)
[2018-08-07] MEDS: ATORVASTATIN CA 10 MG TABLET (FP) PO SCH (22:22)
[2018-08-08] MEDS: PIPERACILLIN/TAZOB 2.25 GM 2.25 GM in DEXTROSE 5%-WATER - 50 ML IVPB SCH ×3 (01:06→19:25)
[2018-08-08] MEDS: MORPHINE SULFATE 2 MG/ML VIAL IVPUSH PRN ×2 (01:07→06:29)
[2018-08-08 02:14] LABS: HBSAG SCREEN Positive (Negative); HEP B CORE AB, TOT Positive (Negative)
[2018-08-08] MEDS: INSULIN SLIDING SCALE (NOVOLOG) 1 VIAL SQ SCH ×4 (06:29→21:13)
--- NOTE | 2018-08-08 07:51 | PN ---
Progress Note (short form) - Note Progress Note: has no complaints. Current Medications Generic Name Dose Route Start Last Admin Trade Name Freq PRN Reason Stop Dose Admin Aspirin 81 mg 08/08/18 10:00 Asa - PO DAILY ON LICENSE OF [facility] Atorvastatin Calcium 10 mg 08/07/18 22:00 08/07/18 22:22 Lipitor - PO 10 mg HS [facility] Administration Sodium Chloride 250 mls @ 3,000 mls/hr 08/07/18 15:04 Normal Saline - IV PRN PRN Hypotension during Dialysis Piperacillin Sod/Tazobactam 50 mls @ 100 mls/hr 08/07/18 18:00 08/08/18 01:06 Sod 2.25 gm/ Dextrose IVPB 100 mls/hr Q8H-IV [facility] Administration Protocol Insulin Aspart 1 vial 08/07/18 16:30 08/08/18 06:29 Novolog Vial Sliding Scale - SQ Not Given ACHS [facility] Protocol Lactobacillus Acidophilus 1 tab 08/08/18 10:00 Bacid - PO DAILY ON [facility] OF [facility] Lisinopril 2.5 mg 08/08/18 10:00 Prinivil PO DAILY ON [facility] OF [facility] Metoprolol Succinate 25 mg 08/08/18 10:00 Toprol Xl - PO DAILY ON [facility] OF [facility] Morphine Sulfate 2 mg 08/07/18 22:48 08/08/18 06:29 Morphine Sulfate IVPUSH 2 mg Q4H PRN Administration PAIN LEVEL 6-10 Ondansetron HCl 4 mg 08/07/18 15:04 Zofran Injection IVPUSH Q6H PRN NAUSEA AND/OR VOMITING Oxycodone HCl 5 mg 08/07/18 15:04 Roxicodone - PO 08/08/18 13:35 Q4H PRN PAIN LEVEL 1-5 Pantoprazole Sodium 20 mg 08/07/18 22:00 08/07/18 22:21 Protonix - PO 20 mg HS [facility] Administration Promethazine HCl 12.5 mg 08/07/18 15:04 Phenergan Injection - IVPUSH Q6H PRN NAUSEA-FOR RESCUE AFTER 15 MIN Last Vital Signs Temp Pulse Resp BP Pulse Ox 98.4 F 104 H 22 H 137/77 99 08/07/18 18:38 08/07/18 18:38 08/07/18 18:38 08/07/18 18:38 08/07/18 21:00 General NAD refused physical exam ASSESSMENT AND PLAN: 62yo M wtih PMH ESRD on HD, OM with +ESBL/VRE, DM, HTN, CAD s/p CABG presented to the ER for concern for OM 1. R foot OM- s/p TMA 2nd ray and metatarsal head 3rd and 4th digit wtih flap on 08/07. no pain in foot. on Zosyn day 3. f/u Cx. Podiatry/ID/vasc surgery on board 2. Hyperkalemia- resolved 3. ESRD on HD- resume regular HD session 4. HTN- controlled. cont home management 5. DM-refuses to take diabetic medications and has not had A1c tested. A1c 5.6 refuses diabetic diet only wants regular food, denies he is diabetic despite lab work. cont iss, bgm 6. CAD s/p CABG 7. chronic HBV 8. HCV- tenofovir 9. DVT ppx- hep sq 10. states he wants to leave tomorrow. Informed him he is not medically ready for d/c until cx reports is available which may not be till Friday. will need to be AMA if wants to leave sooner. verbalized understanding Visit type - Emergency Visit Emergency Visit: Yes ED Registration Date: 08/06/18 Care time: The patient presented to the Emergency Department on the above date and was hospitalized for further evaluation of their emergent condition. - New Patient This patient is new to me today: No - Critical Care Critical Care patient: No - Discharge Referral Referred to [facility] Med P.C.: No
--- NOTE | 2018-08-08 09:23 | PN ---
Progress Note (short form) - Note Progress Note: pod#1. no pain. vss, tma 98.5 +clean dry dressing, wbc=5.7 normal pot op packing to be pulled tomorrow. dressing change tomorrow. will decide on dc plan today after dressing change as pt is eager to go home.
[2018-08-08] MEDS ORDERED: PIPERACILLIN/TAZOBACTAM 2.25 GM VIAL IVPB ONE ×2 (10:00→19:24)
[2018-08-08] MEDS ORDERED: DEXTROSE 5%-WATER - 50 ML IVPB ONE ×2 (10:00→19:24)
[2018-08-08] MEDS: LISINOPRIL 5 MG TABLET (FP) PO SCH (10:04)
[2018-08-08] MEDS: ASPIRIN 81 MG CHEWABLE TABLETS PO SCH (10:04)
[2018-08-08] MEDS: LACTOBACILLUS ACIDOPHILUS 1 TABLET PO SCH (10:04)
[2018-08-08] MEDS: metoPROLOL SUCCINATE 25 MG TAB.SR.24H (FP) PO SCH (10:04)
[2018-08-08 10:21] LABS: HEMATOCRIT 32.4 % (35.4-49); HEMOGLOBIN 11.1 GM/dL (11.7-16.9); MCH 32.7 pg (25.7-33.7); MCHC 34.5 g/dl (32.0-35.9); MEAN PLT VOLUME 8.6 fl (7.5-11.1); PLATELET COUNT 150 K/MM3 (134-434); RBC 3.41 M/mm3 (4.00-5.60); RDW 14.2 % (11.9-15.9); WHITE BLOOD COUNT 5.7 K/mm3 (4.0-10.0)
--- NOTE | 2018-08-08 10:32 | PN ---
Progress Note (short form) - Note Progress Note: Renal follow up for ESRD on HD Pt seen and examined at the bedside s/p TMA yesterday denies sob, cp, abd pain s/p dialysis yesterday Vital Signs Temperature 97.8 F 08/08/18 08:22 Pulse Rate 91 H 08/08/18 08:22 Respiratory Rate 22 H 08/08/18 08:22 Blood Pressure 130/76 08/08/18 08:22 O2 Sat by Pulse Oximetry (%) 99 08/07/18 21:00 Intake & Output 08/05/18 08/06/18 08/07/18 08/08/18 23:59 23:59 23:59 23:59 Intake Total 100 690 50 Output Total 50 Balance 100 640 50 Weight 99.79 kg 100.516 kg NAD RRR CTA soft NT/ND no LE edema Current Medications Aspirin (Asa -) 81 mg PO DAILY [facility] Last Admin: 08/08/18 10:04 Dose: 81 mg Atorvastatin Calcium (Lipitor -) 10 mg PO HS [facility] Last Admin: 08/07/18 22:22 Dose: 10 mg Sodium Chloride (Normal Saline -) 250 mls @ 3,000 mls/hr IV PRN PRN PRN Reason: Hypotension during Dialysis Piperacillin Sod/Tazobactam (Sod 2.25 gm/ Dextrose) 50 mls @ 100 mls/hr IVPB Q8H-IV [facility]; Protocol Last Admin: 08/08/18 10:04 Dose: 100 mls/hr Insulin Aspart (Novolog Vial Sliding Scale -) 1 vial SQ ACHS [facility]; Protocol Last Admin: 08/08/18 06:29 Dose: Not Given Lactobacillus Acidophilus (Bacid -) 1 tab PO DAILY [facility] Last Admin: 08/08/18 10:04 Dose: 1 tab Lisinopril (Prinivil) 2.5 mg PO DAILY [facility] Last Admin: 08/08/18 10:04 Dose: 2.5 mg Metoprolol Succinate (Toprol Xl -) 25 mg PO DAILY [facility] Last Admin: 08/08/18 10:04 Dose: 25 mg Morphine Sulfate (Morphine Sulfate) 2 mg IVPUSH Q4H PRN PRN Reason: PAIN LEVEL 6-10 Last Admin: 08/08/18 06:29 Dose: 2 mg Ondansetron HCl (Zofran Injection) 4 mg IVPUSH Q6H PRN PRN Reason: NAUSEA AND/OR VOMITING Oxycodone HCl (Roxicodone -) 5 mg PO Q4H PRN PRN Reason: PAIN LEVEL 1-5 Stop: 08/08/18 13:35 Pantoprazole Sodium (Protonix -) 20 mg PO HS [facility] Last Admin: 08/07/18 22:21 Dose: 20 mg Promethazine HCl (Phenergan Injection -) 12.5 mg IVPUSH Q6H PRN PRN Reason: NAUSEA-FOR RESCUE AFTER 15 MIN 62 year old gentleman with hx of ESRD on HD (MWF), Hypertension, DM, PVD s/p amputation of toe, HLD, hepatitis B, who presented with foot ulcer/wound. #LE wound/PVD #ESRD on HD #Hyperkalemia #DM #Hyperlipidmeia s/p dialysis yesterday, no urgent indication for treatment today next dialysis planned for Friday Renal diet, 1.2L fluid restriction post operative care as per podiatry Physical therapy as needed Thank you Jose Zavaleta DO
[2018-08-08 10:36] LABS: ANION GAP 11 MMOL/L (8-16); BLOOD UREA NITROGEN 33 mg/dL (7-18); CALCIUM 7.7 mg/dL (8.5-10.1); CHLORIDE 96 mmol/L (98-107); CO2 23 mmol/L (21-32); GLUCOSE,RANDOM 79 mg/dL (74-106); MAGNESIUM 1.9 mg/dL (1.8-2.4); PHOSPHOROUS 4.6 mg/dL (2.5-4.9); POTASSIUM 5.3 mmol/L (3.5-5.1); SODIUM 130 mmol/L (136-145)
[2018-08-08 11:49] LABS: ANISOCYTOSIS 1+; MACROCYTOSIS 1+
[2018-08-08 12:08] LABS: PLATELET ESTIMATE ADEQUATE
--- NOTE | 2018-08-08 14:13 | PN ---
Progress Note, Physician History of Present Illness: patient post op debridement cultures send - Current Medication List Current Medications: Active Medications Aspirin (Asa -) 81 mg PO DAILY [facility] Last Admin: 08/08/18 10:04 Dose: 81 mg Atorvastatin Calcium (Lipitor -) 10 mg PO HS [facility] Last Admin: 08/07/18 22:22 Dose: 10 mg Sodium Chloride (Normal Saline -) 250 mls @ 3,000 mls/hr IV PRN PRN PRN Reason: Hypotension during Dialysis Piperacillin Sod/Tazobactam (Sod 2.25 gm/ Dextrose) 50 mls @ 100 mls/hr IVPB Q8H-IV [facility]; Protocol Last Admin: 08/08/18 10:04 Dose: 100 mls/hr Insulin Aspart (Novolog Vial Sliding Scale -) 1 vial SQ ACHS [facility]; Protocol Last Admin: 08/08/18 13:05 Dose: Not Given Lactobacillus Acidophilus (Bacid -) 1 tab PO DAILY [facility] Last Admin: 08/08/18 10:04 Dose: 1 tab Lisinopril (Prinivil) 2.5 mg PO DAILY [facility] Last Admin: 08/08/18 10:04 Dose: 2.5 mg Metoprolol Succinate (Toprol Xl -) 25 mg PO DAILY [facility] Last Admin: 08/08/18 10:04 Dose: 25 mg Morphine Sulfate (Morphine Sulfate) 2 mg IVPUSH Q4H PRN PRN Reason: PAIN LEVEL 6-10 Last Admin: 08/08/18 06:29 Dose: 2 mg Ondansetron HCl (Zofran Injection) 4 mg IVPUSH Q6H PRN PRN Reason: NAUSEA AND/OR VOMITING Pantoprazole Sodium (Protonix -) 20 mg PO [facility] Last Admin: 08/07/18 22:21 Dose: 20 mg Promethazine HCl (Phenergan Injection -) 12.5 mg IVPUSH Q6H PRN PRN Reason: NAUSEA-FOR RESCUE AFTER 15 MIN Tenofovir Disoproxil Fumarate (Viread -) 300 mg PO Q72H [facility] - Objective Vital Signs: Vital Signs Temperature 97.8 F 08/08/18 08:22 Pulse Rate 91 H 08/08/18 08:22 Respiratory Rate 22 H 08/08/18 08:22 Blood Pressure 130/76 08/08/18 08:22 O2 Sat by Pulse Oximetry (%) 93 L 08/08/18 09:00 Constitutional: Yes: No Distress, Calm Cardiovascular: Yes: S1, S2 Respiratory: Yes: Regular, CTA Bilaterally Gastrointestinal: Yes: Normal Bowel Sounds, Soft Musculoskeletal: Yes: WNL Extremities: Yes: Other Neurological: Yes: Alert, Oriented Psychiatric: Yes: Alert, Oriented Labs: CBC, BMP 08/08/18 09:35 08/08/18 09:35 INR, PTT INR 1.13 (0.83-1.09) H 08/07/18 09:10 Assessment/Plan ASSESSMENT/PLAN: 62 yo m w/ PMH DM, CKD on HD MWF, HLD who was 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
[2018-08-08] MEDS ORDERED: PT OWN MED DRAWER 7, Y5N ONE (14:32)
[2018-08-08] MEDS: TENOFOVIR DISOPROXIL FUMARATE 300 MG TABLET PO SCH (14:33)
[2018-08-08] MEDS: PANTOPRAZOLE 20 MG TABLET (FP) PO SCH (21:14)
[2018-08-08] MEDS: ATORVASTATIN CA 10 MG TABLET (FP) PO SCH (21:14)
[2018-08-09] MEDS ORDERED: PIPERACILLIN/TAZOBACTAM 2.25 GM VIAL IVPB ONE ×3 (00:53→17:27)
[2018-08-09] MEDS ORDERED: DEXTROSE 5%-WATER - 50 ML IVPB ONE ×3 (00:53→17:27)
[2018-08-09] MEDS: PIPERACILLIN/TAZOB 2.25 GM 2.25 GM in DEXTROSE 5%-WATER - 50 ML IVPB SCH ×3 (01:05→17:31)
[2018-08-09] MEDS: INSULIN SLIDING SCALE (NOVOLOG) 1 VIAL SQ SCH ×4 (06:36→21:46)
[2018-08-09] MEDS: LACTOBACILLUS ACIDOPHILUS 1 TABLET PO SCH (10:59)
[2018-08-09] MEDS: ASPIRIN 81 MG CHEWABLE TABLETS PO SCH (10:59)
[2018-08-09] MEDS: LISINOPRIL 5 MG TABLET (FP) PO SCH (10:59)
[2018-08-09] MEDS: metoPROLOL SUCCINATE 25 MG TAB.SR.24H (FP) PO SCH (11:00)
--- NOTE | 2018-08-09 11:31 | PN ---
Teaching Attending Note Name of Resident: Oscar Jaramillo ATTENDING PHYSICIAN STATEMENT I saw and evaluated the patient. I reviewed the resident's note and discussed the case with the resident. I agree with the resident's findings and plan as documented. SUBJECTIVE: "leave me alone, im fine i want to go home" OBJECTIVE: Last Vital Signs Temp Pulse Resp BP Pulse Ox 99.8 F H 79 18 128/76 93 L 08/09/18 08:18 08/09/18 08:18 08/09/18 08:18 08/09/18 08:18 08/08/18 09:00 General NAD refused physical exam ASSESSMENT AND PLAN: 62yo M wtih PMH ESRD on HD, OM with +ESBL/VRE, DM, HTN, CAD s/p CABG presented to the ER for concern for OM 1. R foot OM- s/p TMA 2nd ray and metatarsal head 3rd and 4th digit wtih flap on 08/07. no pain in foot. on Zosyn day 4. wound care per podiatry f/u Cx. Podiatry/ID/vasc surgery on board 2. Hyperkalemia- resolved 3. ESRD on HD- resume regular HD session 4. HTN- controlled. cont home management 5. DM-refuses to take diabetic medications and has not had A1c tested. A1c 5.6 refuses diabetic diet only wants regular food, denies he is diabetic despite lab work. cont iss, bgm 6. CAD s/p CABG 7. chronic HBV- tenofovir 8. DVT ppx- hep sq 9. states he wants to leave today. verbalized results will not be ready till tomorrow to determine if requires abx. discussed again risk and benefits of staying. will stay at present time
--- NOTE | 2018-08-09 11:48 | PN ---
Progress Note, Physician History of Present Illness: patient stable no new issues - Current Medication List Current Medications: Active Medications Aspirin (Asa -) 81 mg PO DAILY [facility] Last Admin: 08/09/18 10:59 Dose: 81 mg Atorvastatin Calcium (Lipitor -) 10 mg PO [facility] Last Admin: 08/08/18 21:14 Dose: 10 mg Sodium Chloride (Normal Saline -) 250 mls @ 3,000 mls/hr IV PRN PRN PRN Reason: Hypotension during Dialysis Piperacillin Sod/Tazobactam (Sod 2.25 gm/ Dextrose) 50 mls @ 100 mls/hr IVPB Q8H-IV [facility]; Protocol Last Admin: 08/09/18 11:00 Dose: 100 mls/hr Insulin Aspart (Novolog Vial Sliding Scale -) 1 vial SQ ACHS [facility]; Protocol Last Admin: 08/09/18 11:39 Dose: Not Given Lactobacillus Acidophilus (Bacid -) 1 tab PO DAILY [facility] Last Admin: 08/09/18 10:59 Dose: 1 tab Lisinopril (Prinivil) 2.5 mg PO DAILY [facility] Last Admin: 08/09/18 10:59 Dose: 2.5 mg Metoprolol Succinate (Toprol Xl -) 25 mg PO DAILY [facility] Last Admin: 08/09/18 11:00 Dose: 25 mg Morphine Sulfate (Morphine Sulfate) 2 mg IVPUSH Q4H PRN PRN Reason: PAIN LEVEL 6-10 Last Admin: 08/08/18 06:29 Dose: 2 mg Ondansetron HCl (Zofran Injection) 4 mg IVPUSH Q6H PRN PRN Reason: NAUSEA AND/OR VOMITING Pantoprazole Sodium (Protonix -) 20 mg PO [facility] Last Admin: 08/08/18 21:14 Dose: 20 mg Promethazine HCl (Phenergan Injection -) 12.5 mg IVPUSH Q6H PRN PRN Reason: NAUSEA-FOR RESCUE AFTER 15 MIN Tenofovir Disoproxil Fumarate (Viread -) 300 mg PO Q72H [facility] Last Admin: 08/08/18 14:33 Dose: 300 mg - Objective Vital Signs: Vital Signs Temperature 99.8 F H 08/09/18 08:18 Pulse Rate 79 08/09/18 08:18 Respiratory Rate 18 08/09/18 08:18 Blood Pressure 128/76 08/09/18 08:18 O2 Sat by Pulse Oximetry (%) 93 L 08/08/18 09:00 Constitutional: Yes: No Distress, Calm Cardiovascular: Yes: S1, S2 Respiratory: Yes: Regular, CTA Bilaterally Gastrointestinal: Yes: Normal Bowel Sounds, Soft Musculoskeletal: Yes: WNL Extremities: Yes: WNL Wound/Incision: Yes: Clean/Dry, Dressing Dry and Intact Neurological: Yes: Alert, Oriented Psychiatric: Yes: Alert, Oriented Labs: CBC, BMP 08/08/18 09:35 08/08/18 09:35 INR, PTT INR 1.13 (0.83-1.09) H 08/07/18 09:10 Assessment/Plan ASSESSMENT/PLAN: 62 yo m w/ PMH DM, CKD on HD MWF, HLD who was 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
[2018-08-09 12:38] LABS: ANION GAP 13 MMOL/L (8-16); BLOOD UREA NITROGEN 54 mg/dL (7-18); CALCIUM 7.9 mg/dL (8.5-10.1); CHLORIDE 94 mmol/L (98-107); CO2 24 mmol/L (21-32); GLUCOSE,RANDOM 73 mg/dL (74-106); POTASSIUM 5.5 mmol/L (3.5-5.1); SODIUM 130 mmol/L (136-145)
[2018-08-09] MEDS ORDERED: SODIUM POLYSTYRENE SULFONATE 15 GM/60 ML BOTTLE PO ONE (12:39)
[2018-08-09 12:40] LABS: CREATININE 8.4 mg/dL (0.55-1.3)
--- NOTE | 2018-08-09 13:02 | PN ---
Progress Note (short form) - Note Progress Note: pod#2. no pain. vss, tma 99.8 +clean dry dressing, wbc=5.7, retention sutures in place, +packing in place normal pot op Dressing change done. Packing pulled. Betadine dressing re-applied. May go to bathroom with post op shoe on. Will follow till dc. Can be dc to home from Podiatry standpoint. Abx as per ID and total care as per medicine.
--- NOTE | 2018-08-09 13:38 | PN ---
Physical Exam: SUBJECTIVE: No acute events overnight. Pt is POD2 from most recent amputation. Pt did not allow me to examine today. Wants to leave due to "having things to do ," and understands that if he does leave it will have to be against medical advice. OBJECTIVE: Vital Signs Period Temp Pulse Resp BP Sys/Palafox Pulse Ox Last 24 Hr 98.5 F-99.8 F 78-86 18-20 115-133/64-77 PE not available due to pt compliance. Pt speaking in full sentences without acute distress. alert and oriented laying in bed. Laboratory Results 08/08/18 08/09/18 08/09/18 15:12 11:30 11:38 Sodium 130 L Potassium 5.5 H Chloride 94 L Carbon Dioxide 24 Anion Gap 13 BUN 54 H Creatinine 8.4 H* Creat Clearance w eGFR 6.45 POC Glucometer 64 68 Random Glucose 73 L Calcium 7.9 L Active Medications Generic Name Dose Route Start Last Admin Trade Name Freq PRN Reason Stop Dose Admin Aspirin 81 mg 08/08/18 10:00 08/09/18 10:59 Asa - PO 81 mg DAILY [facility] Administration Atorvastatin Calcium 10 mg 08/07/18 22:00 08/08/18 21:14 Lipitor - PO 10 mg HS [facility] Administration Sodium Chloride 250 mls @ 3,000 mls/hr 08/07/18 15:04 Normal Saline - IV PRN PRN Hypotension during Dialysis Piperacillin Sod/Tazobactam 50 mls @ 100 mls/hr 08/07/18 18:00 08/09/18 11:00 Sod 2.25 gm/ Dextrose IVPB 100 mls/hr Q8H-IV [facility] Administration Protocol Insulin Aspart 1 vial 08/07/18 16:30 08/09/18 11:39 Novolog Vial Sliding Scale - SQ Not Given ACHS [facility] Protocol Lactobacillus Acidophilus 1 tab 08/08/18 10:00 08/09/18 10:59 Bacid - PO 1 tab DAILY [facility] Administration Lisinopril 2.5 mg 08/08/18 10:00 08/09/18 10:59 Prinivil PO 2.5 mg DAILY [facility] Administration Metoprolol Succinate 25 mg 08/08/18 10:00 08/09/18 11:00 Toprol Xl - PO 25 mg DAILY [facility] Administration Morphine Sulfate 2 mg 08/07/18 22:48 08/08/18 06:29 Morphine Sulfate IVPUSH 2 mg Q4H PRN Administration PAIN LEVEL 6-10 Ondansetron HCl 4 mg 08/07/18 15:04 Zofran Injection IVPUSH Q6H PRN NAUSEA AND/OR VOMITING Pantoprazole Sodium 20 mg 08/07/18 22:00 08/08/18 21:14 Protonix - PO 20 mg HS [facility] Administration Promethazine HCl 12.5 mg 08/07/18 15:04 Phenergan Injection - IVPUSH Q6H PRN NAUSEA-FOR RESCUE AFTER 15 MIN Tenofovir Disoproxil Fumarate 300 mg 08/08/18 12:00 08/08/18 14:33 Viread - PO 300 mg Q72H [facility] Administration ASSESSMENT/PLAN: Osteomyelitis (3rd and 4th metatarsal of R foot) Hyperkalemia ESRD (M/W/F) HTN DM CAD s/p CABG Hepatitis B infection (chronic) --POD 2 amputation of 3rd and 4th R metatarsal heads with flap. --Pain well controlled currently --Continue Zosyn 2.25gm q8h (day 4 today) --Podiatry on board --Bone cultures pending currently; f/u results --Morphine 2mg q4h PRN pain 6-10 --Kayexalate 15gm ordered given 5.6 K+ today; pt to have ESRD session dialysis --Monitor BUN and for uremic encephalopathy --Continue Tenofvovir 200mg q3days --Pt's A1c 6.9% on this admission --ISS and BGM ACHS --Continue ASA, Toprol and Prinvil home dose FEN: Fluids: None indicated Electrolyte abnormalities: Hyperkalemia as above Nutrition: Pt refuses to eat diabetic diet even after counselling; regular diet with pt aware of r&b PPX: DVT - Heparin SQ GI - Protonix 20mg HS already on board Dispo: Continue monitoring; awaiting cultures. Pt verbalized many times that he wants to leave however explained we are waiting for cultures to assess for ABX choice. Risk and benefits explained and all questions answered. Case discussed with Dr. Barrett Jaramillo, DO - IM PGY-2 Visit type - Emergency Visit Emergency Visit: Yes ED Registration Date: 08/06/18 Care time: The patient presented to the Emergency Department on the above date and was hospitalized for further evaluation of their emergent condition. - New Patient This patient is new to me today: No - Critical Care Critical Care patient: No
[2018-08-09] MEDS ORDERED: PT OWN MED DRAWER 7, Y5N ONE (18:26)
[2018-08-09] MEDS: PANTOPRAZOLE 20 MG TABLET (FP) PO SCH (21:45)
[2018-08-09] MEDS: ATORVASTATIN CA 10 MG TABLET (FP) PO SCH (21:45)
[2018-08-10] MEDS ORDERED: PIPERACILLIN/TAZOBACTAM 2.25 GM VIAL IVPB ONE ×2 (00:48→02:15)
[2018-08-10] MEDS ORDERED: DEXTROSE 5%-WATER - 50 ML IVPB ONE (02:16)
[2018-08-10] MEDS: PIPERACILLIN/TAZOB 2.25 GM 2.25 GM in DEXTROSE 5%-WATER - 50 ML IVPB SCH (02:29)
[2018-08-10] MEDS: INSULIN SLIDING SCALE (NOVOLOG) 1 VIAL SQ SCH ×4 (06:14→21:44)
[2018-08-10] MEDS ORDERED: SODIUM CHLORIDE 250 ML IV PRN (06:56)
[2018-08-10] MEDS: MORPHINE SULFATE 2 MG/ML VIAL IVPUSH PRN ×3 (07:37→15:52)
[2018-08-10 10:14] LABS: HEMATOCRIT 32.2 % (35.4-49); MCH 32.8 pg (25.7-33.7); MCHC 34.3 g/dl (32.0-35.9); MEAN CELL VOLUME 95.8 fl (80-96); MEAN PLT VOLUME 9.5 fl (7.5-11.1); PLATELET COUNT 134 K/MM3 (134-434); RBC 3.36 M/mm3 (4.00-5.60); RDW 14.5 % (11.9-15.9); WHITE BLOOD COUNT 5.3 K/mm3 (4.0-10.0)
[2018-08-10] MEDS ORDERED: morphine SULFATE 4 MG/ML VIAL ONE (10:18)
[2018-08-10 11:12] LABS: ANION GAP 15 MMOL/L (8-16); BLOOD UREA NITROGEN 69 mg/dL (7-18); CALCIUM 7.4 mg/dL (8.5-10.1); CHLORIDE 96 mmol/L (98-107); CO2 20 mmol/L (21-32); GLUCOSE,RANDOM 80 mg/dL (74-106); PHOSPHOROUS 8.3 mg/dL (2.5-4.9); SODIUM 131 mmol/L (136-145)
--- NOTE | 2018-08-10 11:27 | PN ---
Progress Note (short form) - Note Progress Note: Renal follow up for ESRD on HD Pt seen and examined during dialysis BP stable, accesss with good flow pt complains of back pain received 2mg of morphine during dialysis no sob, cp, fever, chills Vital Signs Temperature 98.8 F 08/10/18 09:00 Pulse Rate 78 08/10/18 10:20 Respiratory Rate 18 08/10/18 10:20 Blood Pressure 90/60 08/10/18 10:20 O2 Sat by Pulse Oximetry (%) 93 L 08/09/18 21:00 Intake & Output 08/07/18 08/08/18 08/09/18 08/10/18 23:59 23:59 23:59 23:59 Intake Total 566 120 8206 Output Total 50 Balance 793 431 0791 NAD RRR CTA soft NT/ND no LE edema CBC, BMP 08/10/18 09:20 08/10/18 09:20 Current Medications Aspirin (Asa -) 81 mg PO DAILY [facility] Last Admin: 08/09/18 10:59 Dose: 81 mg Atorvastatin Calcium (Lipitor -) 10 mg PO HS [facility] Last Admin: 08/09/18 21:45 Dose: 10 mg Sodium Chloride (Normal Saline -) 250 mls @ 3,000 mls/hr IV PRN PRN PRN Reason: Hypotension during Dialysis Piperacillin Sod/Tazobactam (Sod 2.25 gm/ Dextrose) 50 mls @ 100 mls/hr IVPB Q8H-IV [facility]; Protocol Last Admin: 08/10/18 02:29 Dose: 100 mls/hr Sodium Chloride (Normal Saline -) 250 mls @ 3,000 mls/hr IV PRN PRN PRN Reason: Hypotension during Dialysis Stop: 08/11/18 06:56 Insulin Aspart (Novolog Vial Sliding Scale -) 1 vial SQ ACHS [facility]; Protocol Last Admin: 08/10/18 06:14 Dose: Not Given Lactobacillus Acidophilus (Bacid -) 1 tab PO DAILY [facility] Last Admin: 08/09/18 10:59 Dose: 1 tab Lisinopril (Prinivil) 2.5 mg PO DAILY [facility] Last Admin: 08/09/18 10:59 Dose: 2.5 mg Metoprolol Succinate (Toprol Xl -) 25 mg PO DAILY [facility] Last Admin: 08/09/18 11:00 Dose: 25 mg Morphine Sulfate (Morphine Sulfate) 2 mg IVPUSH Q4H PRN PRN Reason: PAIN LEVEL 6-10 Last Admin: 08/10/18 10:27 Dose: 2 mg Ondansetron HCl (Zofran Injection) 4 mg IVPUSH Q6H PRN PRN Reason: NAUSEA AND/OR VOMITING Pantoprazole Sodium (Protonix -) 20 mg PO HS [facility] Last Admin: 08/09/18 21:45 Dose: 20 mg Promethazine HCl (Phenergan Injection -) 12.5 mg IVPUSH Q6H PRN PRN Reason: NAUSEA-FOR RESCUE AFTER 15 MIN Tenofovir Disoproxil Fumarate (Viread -) 300 mg PO Q72H [facility] Last Admin: 08/08/18 14:33 Dose: 300 mg 62 year old gentleman with hx of ESRD on HD (MWF), Hypertension, DM, PVD s/p amputation of toe, HLD, hepatitis B, who presented with foot ulcer/wound. #LE wound/PVD #ESRD on HD #Hyperkalemia #DM #Hyperlipidmeia tolerating dialysis well podiatry following for post surgical care pain control abx as per ID f/u cultures Thank you Jose Zavaleta DO
[2018-08-10 11:44] LABS: CREATININE 9.7 mg/dL (0.55-1.3)
--- NOTE | 2018-08-10 12:37 | PN ---
Progress Note, Physician History of Present Illness: aiden no new issues leg looks good wound look dry - Current Medication List Current Medications: Active Medications Aspirin (Asa -) 81 mg PO DAILY [facility] Last Admin: 08/09/18 10:59 Dose: 81 mg Atorvastatin Calcium (Lipitor -) 10 mg PO [facility] Last Admin: 08/09/18 21:45 Dose: 10 mg Sodium Chloride (Normal Saline -) 250 mls @ 3,000 mls/hr IV PRN PRN PRN Reason: Hypotension during Dialysis Sodium Chloride (Normal Saline -) 250 mls @ 3,000 mls/hr IV PRN PRN PRN Reason: Hypotension during Dialysis Stop: 08/11/18 06:56 Insulin Aspart (Novolog Vial Sliding Scale -) 1 vial SQ ACHS [facility]; Protocol Last Admin: 08/10/18 06:14 Dose: Not Given Lactobacillus Acidophilus (Bacid -) 1 tab PO DAILY [facility] Last Admin: 08/09/18 10:59 Dose: 1 tab Lisinopril (Prinivil) 2.5 mg PO DAILY [facility] Last Admin: 08/09/18 10:59 Dose: 2.5 mg Metoprolol Succinate (Toprol Xl -) 25 mg PO DAILY [facility] Last Admin: 08/09/18 11:00 Dose: 25 mg Morphine Sulfate (Morphine Sulfate) 2 mg IVPUSH Q4H PRN PRN Reason: PAIN LEVEL 6-10 Last Admin: 08/10/18 10:27 Dose: 2 mg Ondansetron HCl (Zofran Injection) 4 mg IVPUSH Q6H PRN PRN Reason: NAUSEA AND/OR VOMITING Pantoprazole Sodium (Protonix -) 20 mg PO [facility] Last Admin: 08/09/18 21:45 Dose: 20 mg Promethazine HCl (Phenergan Injection -) 12.5 mg IVPUSH Q6H PRN PRN Reason: NAUSEA-FOR RESCUE AFTER 15 MIN Tenofovir Disoproxil Fumarate (Viread -) 300 mg PO Q72H [facility] Last Admin: 08/08/18 14:33 Dose: 300 mg - Objective Vital Signs: Vital Signs Temperature 98.8 F 08/10/18 09:00 Pulse Rate 80 08/10/18 11:50 Respiratory Rate 18 08/10/18 11:50 Blood Pressure 108/91 08/10/18 11:50 O2 Sat by Pulse Oximetry (%) 93 L 08/09/18 21:00 Constitutional: Yes: No Distress, Calm Cardiovascular: Yes: S1, S2 Respiratory: Yes: Regular, CTA Bilaterally Gastrointestinal: Yes: Normal Bowel Sounds, Soft Musculoskeletal: Yes: WNL Extremities: Yes: Other Wound/Incision: Yes: Clean/Dry, Dressing Dry and Intact Neurological: Yes: Alert, Oriented Psychiatric: Yes: Alert, Oriented Labs: CBC, BMP 08/10/18 09:20 08/10/18 09:20 INR, PTT INR 1.13 (0.83-1.09) H 08/07/18 09:10 Assessment/Plan ASSESSMENT/PLAN: 62 yo m w/ PMH DM, CKD on HD MWF, HLD who was send to the ED for 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
[2018-08-10] MEDS: ASPIRIN 81 MG CHEWABLE TABLETS PO SCH (13:37)
[2018-08-10] MEDS: metoPROLOL SUCCINATE 25 MG TAB.SR.24H (FP) PO SCH (13:38)
[2018-08-10] MEDS: LISINOPRIL 5 MG TABLET (FP) PO SCH (13:38)
[2018-08-10] MEDS: LACTOBACILLUS ACIDOPHILUS 1 TABLET PO SCH (13:38)
--- NOTE | 2018-08-10 14:45 | PN ---
Physical Exam: SUBJECTIVE: Patient seen and examined at bedside. Vehemently denied any complaints and expressed wish to leave. However did request renewal of narcotics for pain control after initial AM encounter. OBJECTIVE: Vital Signs Period Temp Pulse Resp BP Sys/Palafox Pulse Ox Last 24 Hr 98 F-98.9 F 60-100 18-20 90-126/54-91 93 GENERAL: A&Ox3, NAD HEENT: NC/AT, PERRLA, EOMI, MMM NECK: Trachea midline, full range of motion, supple. 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 systems w/o focal deficit PSYCH: oppositional and agitated Laboratory Results - last 24 hr 08/10/18 08/10/18 09:20 09:20 WBC 5.3 RBC 3.36 L Hgb 11.0 L Hct 32.2 L MCV 95.8 MCH 32.8 MCHC 34.3 RDW 14.5 Plt Count 134 MPV 9.5 D Sodium 131 L Potassium 5.0 Chloride 96 L Carbon Dioxide 20 L Anion Gap 15 BUN 69 H Creatinine 9.7 H* Creat Clearance w eGFR 5.47 Random Glucose 80 Calcium 7.4 L Phosphorus 8.3 H Active Medications Generic Name Dose Route Start Last Admin Trade Name Freq PRN Reason Stop Dose Admin Aspirin 81 mg 08/08/18 10:00 08/10/18 13:37 Asa - PO Not Given DAILY [facility] Atorvastatin Calcium 10 mg 08/07/18 22:00 08/09/18 21:45 Lipitor - PO 10 mg HS [facility] Administration Sodium Chloride 250 mls @ 3,000 mls/hr 08/07/18 15:04 Normal Saline - IV PRN PRN Hypotension during Dialysis Sodium Chloride 250 mls @ 3,000 mls/hr 08/10/18 06:56 Normal Saline - IV 08/11/18 06:56 PRN PRN Hypotension during Dialysis Insulin Aspart 1 vial 08/07/18 16:30 08/10/18 13:39 Novolog Vial Sliding Scale - SQ Not Given ACHS [facility] Protocol Lactobacillus Acidophilus 1 tab 08/08/18 10:00 08/10/18 13:38 Bacid - PO Not Given DAILY [facility] Lisinopril 2.5 mg 08/08/18 10:00 08/10/18 13:38 Prinivil PO Not Given DAILY [facility] Metoprolol Succinate 25 mg 08/08/18 10:00 08/10/18 13:38 Toprol Xl - PO Not Given DAILY [facility] Morphine Sulfate 2 mg 08/10/18 10:13 08/10/18 10:27 Morphine Sulfate IVPUSH 2 mg Q4H PRN Administration PAIN LEVEL 6-10 Ondansetron HCl 4 mg 08/07/18 15:04 Zofran Injection IVPUSH Q6H PRN NAUSEA AND/OR VOMITING Pantoprazole Sodium 20 mg 08/07/18 22:00 08/09/18 21:45 Protonix - PO 20 mg HS [facility] Administration Promethazine HCl 12.5 mg 08/07/18 15:04 Phenergan Injection - IVPUSH Q6H PRN NAUSEA-FOR RESCUE AFTER 15 MIN Tenofovir Disoproxil Fumarate 300 mg 08/08/18 12:00 08/08/18 14:33 Viread - PO 300 mg Q72H [facility] Administration ASSESSMENT/PLAN: 62 y/o M w/ PMHx DM, HTN, ESRD on HD, p/w non-healing R foot wound admitted for amputation in light of osteomyelitis #osteomyelitis -POD3 s/p amputation of R foot rays 3 and 4 w/ Dr. Carl -awaiting path report on surgical margins -final dose of IV ABx given today unless margins are positive -f/u C/S -morphine 2q4 PRN #ESRD -for HD today (MWF) -close monitoring of BMP -close monitoring for uremic encephalopathy #CV -Continue ASA, Toprol and Prinvil home dose #DM -A1c 6.9 -SSI -BGM ACHS #Hep B -cont Tenofovir #FEN -No IVF, 1.2L fluid restriction per nephro -monitor BMP, HD and acute correction of electrolyte abnormalities -Pt refuses diabetic diet, on regular diet following discussion of risks #PPX -DVT: heparin subq -GI: PTX #code -full #dispo -cont to monitor on med/surg pending f/u of C/S and surgical margins -Pt is acting abusively towards nursing staff, may leave AMA -informed that remaining RLE and Pt's life would be placed at risk in event of AMA, has agreed to stay at present Visit type - Emergency Visit Emergency Visit: No - New Patient This patient is new to me today: Yes Date on this admission: 08/10/18 - Critical Care Critical Care patient: No
--- NOTE | 2018-08-10 14:55 | PN ---
Teaching Attending Note Name of Resident: Marcio Quick ATTENDING PHYSICIAN STATEMENT I saw and evaluated the patient. I reviewed the resident's note and discussed the case with the resident. I agree with the resident's findings and plan as documented. SUBJECTIVE:asymptomatic. has never had pain in his feet OBJECTIVE: Last Vital Signs Temp Pulse Resp BP Pulse Ox 98.8 F 78 18 102/56 L 93 L 08/10/18 09:00 08/10/18 13:00 08/10/18 12:30 08/10/18 13:00 08/09/18 21:00 General NAD refused physical exam ASSESSMENT AND PLAN: 62yo M wtih PMH ESRD on HD, OM with +ESBL/VRE, DM, HTN, CAD s/p CABG presented to the ER for concern for OM 1. R foot OM- s/p TMA 2nd ray and metatarsal head 3rd and 4th digit wtih flap on 08/07. no pain in foot. abx d/c this am. awaiting cx report. as per micro should know by tomorrow final cx and if margins are clear. wound care per podiatry f/u Cx. Podiatry/ID/vasc surgery on board 2. Hyperkalemia- resolved 3. ESRD on HD- resume regular HD session 4. HTN- controlled. cont home management 5. DM-refuses to take diabetic medications and has not had A1c tested. A1c 5.6 refuses diabetic diet only wants regular food, denies he is diabetic despite lab work. cont iss, bgm 6. CAD s/p CABG 7. chronic HBV- tenofovir 8. DVT ppx- hep sq 9. anticipate d/c in next 24H
[2018-08-10] MEDS: ATORVASTATIN CA 10 MG TABLET (FP) PO SCH (21:44)
[2018-08-10] MEDS: PANTOPRAZOLE 20 MG TABLET (FP) PO SCH (21:44)
[2018-08-11 01:44] VITALS: TEMP 97.8
[2018-08-11] MEDS: INSULIN SLIDING SCALE (NOVOLOG) 1 VIAL SQ SCH ×2 (06:15→11:42)
[2018-08-11] MEDS ORDERED: PT OWN MED DRAWER 7, Y5N ONE ×2 (09:37→11:27)
[2018-08-11] MEDS: ASPIRIN 81 MG CHEWABLE TABLETS PO SCH (09:39)
[2018-08-11] MEDS: LISINOPRIL 5 MG TABLET (FP) PO SCH (09:40)
[2018-08-11] MEDS: LACTOBACILLUS ACIDOPHILUS 1 TABLET PO SCH (09:40)
[2018-08-11] MEDS: metoPROLOL SUCCINATE 25 MG TAB.SR.24H (FP) PO SCH (09:41)
[2018-08-11 10:57] VITALS: BP 107/65; PULSE 79
[2018-08-11] MEDS ORDERED: INSULIN (NOVOLOG) ASPART 100 UNITS/ML 10ML VIAL ONE (11:28)
[2018-08-11] MEDS: TENOFOVIR DISOPROXIL FUMARATE 300 MG TABLET PO SCH (11:42)
--- NOTE | 2018-08-11 13:50 | PN ---
Progress Note, Physician History of Present Illness: patient stable no complaints discussed the case with podiatry patientss cx is from the bone - Current Medication List Current Medications: Active Medications Aspirin (Asa -) 81 mg PO DAILY [facility] Last Admin: 08/11/18 09:39 Dose: 81 mg Atorvastatin Calcium (Lipitor -) 10 mg PO HS [facility] Last Admin: 08/10/18 21:44 Dose: 10 mg Sodium Chloride (Normal Saline -) 250 mls @ 3,000 mls/hr IV PRN PRN PRN Reason: Hypotension during Dialysis Sodium Chloride (Normal Saline -) 250 mls @ 3,000 mls/hr IV PRN PRN PRN Reason: Hypotension during Dialysis Stop: 08/11/18 06:56 Insulin Aspart (Novolog Vial Sliding Scale -) 1 vial SQ [facility]; Protocol Last Admin: 08/11/18 11:42 Dose: Not Given Lactobacillus Acidophilus (Bacid -) 1 tab PO DAILY [facility] Last Admin: 08/11/18 09:40 Dose: 1 tab Lisinopril (Prinivil) 2.5 mg PO DAILY [facility] Last Admin: 08/11/18 09:40 Dose: 2.5 mg Metoprolol Succinate (Toprol Xl -) 25 mg PO DAILY [facility] Last Admin: 08/11/18 09:41 Dose: 25 mg Morphine Sulfate (Morphine Sulfate) 2 mg IVPUSH Q4H PRN PRN Reason: PAIN LEVEL 6-10 Last Admin: 08/10/18 15:52 Dose: 2 mg Ondansetron HCl (Zofran Injection) 4 mg IVPUSH Q6H PRN PRN Reason: NAUSEA AND/OR VOMITING Pantoprazole Sodium (Protonix -) 20 mg PO [facility] Last Admin: 08/10/18 21:44 Dose: 20 mg Promethazine HCl (Phenergan Injection -) 12.5 mg IVPUSH Q6H PRN PRN Reason: NAUSEA-FOR RESCUE AFTER 15 MIN Tenofovir Disoproxil Fumarate (Viread -) 300 mg PO Q72H [facility] Last Admin: 08/11/18 11:42 Dose: 300 mg - Objective Vital Signs: Vital Signs Temperature 97.8 F 08/10/18 21:00 Pulse Rate 79 08/11/18 09:30 Respiratory Rate 20 08/11/18 09:30 Blood Pressure 107/65 08/11/18 09:30 O2 Sat by Pulse Oximetry (%) 93 L 08/09/18 21:00 Constitutional: Yes: No Distress, Calm Cardiovascular: Yes: S1, S2 Respiratory: Yes: Regular, CTA Bilaterally Gastrointestinal: Yes: Normal Bowel Sounds, Soft Musculoskeletal: Yes: WNL Extremities: Yes: Other Wound/Incision: Yes: Dressing Dry and Intact Neurological: Yes: Alert, Oriented Psychiatric: Yes: Alert, Oriented Labs: CBC, BMP 08/10/18 09:20 08/10/18 09:20 INR, PTT INR 1.13 (0.83-1.09) H 08/07/18 09:10 Assessment/Plan ASSESSMENT/PLAN: 62 yo m w/ PMH DM, CKD on HD MWF, HLD who was send to the ED 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
--- NOTE | 2018-08-11 14:43 | DS ---
Physical Exam: SUBJECTIVE: Patient seen and examined at bedside. Vehemently denied any complaints and expressed wish to leave. OBJECTIVE: Vital Signs Period Temp Pulse Resp BP Sys/Palafox Pulse Ox Last 24 Hr 97.8 F 79-88 20-20 102-114/57-65 PHYSICAL EXAM GENERAL: A&Ox3, NAD HEENT: NC/AT, PERRLA, EOMI, MMM NECK: Trachea midline, full range of motion, supple. 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 No other symptoms reported. Podiatry, vascular surgery, and nephrology were consulted. LE MRI was consistent with osteomyelitis. CTA demonstrated no acute vascular problem. Patient underwent amputation of the 3rd and 4th rays of the right foot and a course of IV ABx. BCx was negative, tissue culture grew coagulase negative staphylococcus. Final pathology report still pending at time of discharge. Patient was discharged with instructions for follow up and will undergo a 5 week course of further IV ABx to be given three times weekly along with HD as well as weekly monitoring of ESR/CRP. Date of Discharge: 08/11/18 Minutes to complete discharge: 36 Discharge Summary Reason For Visit: FOOT INFECTION Current Active Problems Cellulitis (Acute) Wound of foot (Acute) Condition: Stable - Instructions Diet, Activity, Other Instructions: You presented with an infection of the foot that had spread to the bone underneath. You underwent surgery to remove the infected tissue and were treated with antibiotics. Please follow up with Dr. Carl and attend clinic for primary medical care followup within [address] Carl will provide you with final results of your bone biopsy. You will need IV antibiotics for the next 5 weeks following discharge, which you will receive during your dialysis sessions. You will also need lab studies once per week. These are detailed below to assist your providers. Continue taking your other home medications as prescribed, follow all your scheduled medical appointments, attend hemodialysis sessions, and maintain a healthy diabetic diet. If you experience any fevers, chills, worsening pain in your foot, diarrhea, chest pain , shortness of breath, or any other new or concerning symptoms, please return to the Emergency Department. Medications and studies: 1g IV vancomycin 3x per week with HD for 5 weeks ESR/CRP once per week while on IV vancomycin [place] [facility] [place] [facility]Provider Group] - 1 Week Christofer Carl DPM [Staff Physician] - 1 Week Disposition: HOME - Home Medications Comprehensive Discharge Medication List: Ambulatory Orders Aspirin [ASA -] 81 mg PO DAILY 12/23/16 Lisinopril [Prinivil] 2.5 mg PO DAILY #30 tablet 05/30/17 Atorvastatin Ca [Lipitor] 10 mg PO DAILY 07/24/17 Metoprolol Succinate [Toprol Xl] 25 mg PO DAILY 07/24/17 Tenofovir Disoproxil Fumarate [Viread -] 300 mg PO Q72H #0 cap 01/25/18 Fluticasone Prop 0.05% Nasal [Flonase -] 1 - 2 spray NS ASDIR 07/29/18 Pantoprazole Sodium [Protonix -] 20 mg PO HS #30 tablet.ec 07/30/18 This patient is new to me today: No Emergency Visit: No Critical Care patient: No - Discharge Referral Referred to [facility] Med P.C.: No
--- NOTE | 2018-08-11 15:25 | PATH ---
Surgical Pathology Report Patient Name: ELSIE JENSEN Med. Rec. #: [id number] /Age/Gender: 1955 (Age: 62) / M Account: [id number] Location: [facility] MED/SURG Taken: 08/07/2018 Received: 08/10/2018 Reported: 08/11/2018 Physicians: DWIGHT David M.D. Specimen(s) Received A: 2ND METATARSAL RIGHT FOOT B: 2ND TOE RIGHT FOOT C: 3RD METATARSAL RIGHT FOOT D: 4TH METATARSAL RIGHT FOOT Clinical History Foot infection, osteomyelitis Final Diagnosis A. FOOT, RIGHT, SECOND METATARSAL, EXCISION: PORTION OF BONE WITH REACTIVE CHANGES. NO ACUTE OSTEOMYELITIS IDENTIFIED. B. FOOT, RIGHT, SECOND TOE, AMPUTATION: DIGIT WITH MILD ATHEROSCLEROSIS AND ASSOCIATED MICROCALCIFICATION OF SMALL VESSEL/ARTERY. UNDERLYING BONE WITH MILD REACTIVE CHANGES. NO DEFINITIVE SKIN LESION IDENTIFED. NO ACUTE OSTEOMYELITIS IDENTIFIED. SURGICAL MARGINS ARE VIABLE. C. FOOT, RIGHT, THIRD METATARSAL, EXCISION: PORTION OF BONE WITH REACTIVE CHANGES. NO ACUTE OSTEOMYELITIS IDENTIFIED. D. FOOT, RIGHT, FOURTH METATARSAL, EXCISION: PORTION OF BONE WITH REACTIVE CHANGES. NO ACUTE OSTEOMYELITIS IDENTIFIED. Comment: Prior materials are noted. Electronically Signed Nelsy Corley M.D. Gross Description A. Received in formalin labeled "right foot second metatarsal" is a 1.7 x 1.7 x 1.0 cm cummings, irregular portion of bone. A full thickness section is submitted in one cassette, following decalcification. B. Received in formalin labeled "second toe right foot," is a 4.2 x 2.5 x 2.3 cm toe amputation. No discrete epidermal lesion is identified. Automotive Sales Executive sections are submitted in 3 cassettes as follows: 1-epidermal surface with underlying bone, following decalcification; 2-bone margin, following decalcification; 3-skin and soft tissue margin. C. Received in formalin labeled "right third metatarsal," is a 1.6 x 1.4 x 1.1 cm cummings, irregular portion of bone. A full thickness section is submitted in one cassette, following decalcification. D. Received in formalin labeled "right fourth metatarsal," is a 1.7 x 1.4 x 1.2 cm cummings, irregular portion of bone. A full thickness section is submitted in one cassette, following decalcification. 08/10/201808/10/2018
--- NOTE | 2018-08-11 18:09 | PN ---
Teaching Attending Note Name of Resident: Marcio Quick ATTENDING PHYSICIAN STATEMENT I saw and evaluated the patient. I reviewed the resident's note and discussed the case with the resident. I agree with the resident's findings and plan as documented. SUBJECTIVE: Feels okay. Denies pain/fever. Wants to go home. OBJECTIVE: Afebrile, Hemodynamically Stable. Last Vital Signs Temp Pulse Resp BP Pulse Ox 97.8 F 79 20 107/65 93 L 08/10/18 21:00 08/11/18 09:30 08/11/18 09:30 08/11/18 09:30 08/09/18 21:00 HEENT - Atraumatic, Normocephalic. Heart - S1, S2, RRR Lungs - clear to auscultation. No crackles/wheeze. Abdomen - Soft, non-tender. Bowel Sounds normal. Extremities - R foot amputation site dressed. No calf tenderness. Laboratory Results - last 24 hr 08/11/18 11:39 POC Glucometer 77 ASSESSMENT AND PLAN: 62 year old Male with history of ESRD on HD, Osteomyelitis with +ESBL/VRE, DM 2 , HTN, CAD s/p CABG presented with R foot infection. 1. R foot OSteomyelitis - s/p TMA 2nd, 3rd and 4th digits with flap 2/8 No pain/fever/signs of ongoing infection Wound and Surgical Cx positive for coag neg staph. Blood cx neg. IV Vancomycin post HD for 5 weeks as per ID with weekly ESR/CRP. Seen by Podiatry/ID/vasc surgery - for out-patient follow up. 2. Hyperkalemia sec to ESRD - resolved s/p HD 3. ESRD on HD - resume regular HD sessions 4. HTN - Continue Lisinopril, Metoprolol 5. DM 2 , appears diet controlled, A1C 5.6 - declines anti-hyperglycemic medications. 6. CAD s/p CABG - Stable. Continue Aspirin, BB, TRAVON-I, Statin 7. Chronic HBV - Continue Tenofovir 8. HLD - Continue Atorvastatin DVT Px - Heparin SQ
--- NOTE | 2018-08-22 13:40 | OP ---
DATE OF OPERATION: 08/07/2018 PREOPERATIVE DIAGNOSIS: Osteomyelitis, right foot with draining wounds POSTOPERATIVE DIAGNOSIS: Same PROCEDURE: Resection of 2nd toe, right foot; resection of 2nd, 3rd and 4th metatarsal heads, right foot; plantar flap, right, with Osteoset vancomycin bead implantation. SURGEON: Christofer Carl DPM PROCEDURE: After noting all preoperative vital signs to be within normal limits and after the surgical consent was signed and witnessed the patient was brought to the OR and placed on the table in the supine position. The right foot was then prepped and draped in the usual sterile fashion. Once the patient's foot was prepped and draped in the usual sterile fashion attention was directed to the 2nd metatarsophalangeal joint where using sharp and blunt dissection the 2nd toe was amputated and sent down to Pathology. The incision was increased from medial to lateral over the 2nd, 3rd and 4th metatarsal heads. Utilizing sharp and blunt dissection the 2nd, 3rd and 4th metatarsal heads were liberated. All unavoidable vessels were ligated in the usual fashion. All other neurovascular structures were retracted out of the surgical site. They were examined and noted to be infected. Utilizing a sagittal saw going from dorsal to plantar the distal 1/3 of each metatarsal was resected and sent down to Pathology. Once this was done the wound was then explored for any remaining necrotic bone or soft tissue. Any noted necrotic bone or soft tissue was resected and sent down to Pathology. A flush was then done with copious amounts of sterile irrigation that had antibiotic added to it. Once this was done the wound was explored. It was noted to be clean. Any tendons that were exposed were resected and sent down to Pathology as well. Osteoset beads were prepared and impregnated with vancomycin. Once cured they were scattered randomly amongst the metatarsal heads of 2, 3 and 4. The incision was then closed using retention sutures using a 3-0 nylon in a simple interrupted suture fashion after a plantar flap had been created. Once this was done 1/4-inch plain packing was put into place into the wound for any remaining drainage that was necessary after surgery. Once this was done Xeroform gauze was applied, fluff dressing and a Kerlix dressing was applied with an Otilio bandage. The patient tolerated the anesthesia and the procedure well. Patient returned to the recovery room with vital signs stable and vascular status intact. Christofer Carl DPM [id number] MTDJerry
== END 2018-08-11 15:10 | disposition home or self-care (01) | DRG 617 ==
LOC: JER 20:22 → UNDOADMOB 08-06 00:33 → JERBED 08-06 00:33 → INTOOBSV 08-06 00:33 → JERBED 08-06 02:01 → OBSVTOIN 08-06 14:07 → J8W 08-06 15:28
PROVIDERS: ADMIT Internal Medicine
PROC: 0Y6M0ZC Detachment at Right Foot, Partial 3rd Ray, Open Approach (ICD-10-PCS; 2018-08-07)
PROC: 0Y6M0ZD Detachment at Right Foot, Partial 4th Ray, Open Approach (ICD-10-PCS; 2018-08-07)
PROC: 3E0102A Introduction of Anti-Infective Envelope into Subcutaneous Tissue, Open Approach (ICD-10-PCS; 2018-08-07)
PROC: 5A1D70Z Performance of Urinary Filtration, Intermittent, Less than 6 Hours Per Day (ICD-10-PCS; 2018-08-07)
PROC: 0Y6M0ZB Detachment at Right Foot, Partial 2nd Ray, Open Approach (ICD-10-PCS; principal; 2018-08-07 13:00)
DX: E11.69 Type 2 diabetes mellitus with other specified complication (principal); M86.8X7 Other osteomyelitis, ankle and foot; L03.115 Cellulitis of right lower limb; B18.1 Chronic viral hepatitis B without delta-agent; B19.10 Unspecified viral hepatitis B without hepatic coma; I12.0 Hypertensive chronic kidney disease with stage 5 chronic kidney disease or end stage renal disease; E11.621 Type 2 diabetes mellitus with foot ulcer; N18.6 End stage renal disease; E78.5 Hyperlipidemia, unspecified; Z99.2 Dependence on renal dialysis; I25.10 Atherosclerotic heart disease of native coronary artery without angina pectoris; E11.22 Type 2 diabetes mellitus with diabetic chronic kidney disease; Z95.1 Presence of aortocoronary bypass graft; E11.51 Type 2 diabetes mellitus with diabetic peripheral angiopathy without gangrene; Z89.429 Acquired absence of other toe(s), unspecified side; E87.5 Hyperkalemia
CPT/HCPCS: 36415; 71045-TC-FY; 73630-TC-RT-FY; 73718-TC; 75635-TC; 80048; 80053; 82962; 83036; 83735; 84100; 85025; 85027; 85610; 85651; 86140; 86704; 86706; 86708; 86803; 87040; 87070; 87075; 87186; 87205; 87340; 88305-TC; 88311-TC; 93005; 93010; 94760; 99284-25; G0378; J1644; J7030

== ENCOUNTER 2020-03-01 10:57 | Inpatient (IN) | payer OTHER, MEDICARE ==
[2020-03-01 11:21] VITALS: BMI 33.4
[2020-03-01] MEDS ORDERED: morphine CARPU-JECT 4 MG/1 ML DISP.SYRIN IVPUSH ONE ×2 (14:53→17:41)
[2020-03-01] MEDS ORDERED: morphine CARPU-JECT 2 MG/1 ML DISP.SYRIN IVPUSH ONE (14:54)
--- NOTE | 2020-03-01 14:59 | PDOC ---
Documentation entered by Myrna Mercedes SCRIBE, acting as scribe for Francois Velez MD. Francois Velez MD: This documentation has been prepared by the Daren ruiz Xhesika, SCRIBE, under my direction and personally reviewed by me in its entirety. I confirm that the documentation accurately reflects all work, treatment, procedures, and medical decision making performed by me. History of Present Illness - General Chief Complaint: Syncope/Near Syncope Stated Complaint: FALL\\BACK\\KNEE PAIN Time Seen by Provider: 03/01/20 11:55 History Source: Patient Exam Limitations: No Limitations - History of Present Illness Initial Comments: 03/01/20 12:10 The patient is a 64 year old male with a significant past medical history of CAD, HTN, HLD, COPD, Hepatitis B, ESRD, chronic lower back pain and DM who presents to the ED for back pain, knee pain, and R elbow pain s/p fall last night at 8PM. Pt states he is unsure how he fell, all he remembers is walking and then being on the floor. Pt denies hitting his head or LOC. Pt states he called 911 after his fall yesterday for assistance but refused to come to the hospital. Pt states this morning his pain was worse, prompting his arrival to the ED. Pt reports he has not been sleeping well for the past 4 days and has not eaten in 3 days. Pt notes he missed his dialysis this morning. Per friend at bedside, he states his friend was at his normal baseline this morning, but seemed slightly lightheaded. The patient denies chest pain, shortness of breath, headache, and dizziness. Pt denies any UE and LE numbness/ tingling. Denies fever, chills, nausea, vomit, diarrhea, and constipation. Denies dysuria, frequency, urgency, and hematuria. Allergies: NKDA PCP: Preston Segura Nephrology: Yokasta Smith Past History - Medical History Allergies/Adverse Reactions: Allergies Allergy/AdvReac Type Severity Reaction Status Date / Time No Known Allergies Allergy Verified 03/01/20 11:57 Home Medications: Ambulatory Orders Aspirin [ASA -] 81 mg PO DAILY 12/23/16 Lisinopril [Prinivil] 2.5 mg PO DAILY #30 tablet 05/30/17 Atorvastatin Ca [Lipitor] 10 mg PO DAILY 07/24/17 Metoprolol Succinate [Toprol Xl] 25 mg PO DAILY 07/24/17 Tenofovir Disoproxil Fumarate [Viread -] 300 mg PO WEEKLY 09/24/18 Anemia: No Asthma: No Cancer: No Cardiac Disorders: Yes (BYPASS SX, CARDIAC STENTS) CVA: No COPD: No CHF: No ((A "FEW YEARS AGO)) DVT: No Dementia: No Diabetes: Yes Dialysis: Yes (M-W-F) GI Disorders: No Disorders: No HTN: Yes Hypercholesterolemia: Yes 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) Seizures: No Thyroid Disease: No - Surgical History Abdominal Surgery: No Appendectomy: Yes Cardiac Surgery: Yes (4 bypass) Cholecystectomy: No Lung Surgery: No Neurologic Surgery: No Orthopedic Surgery: Yes (4 BACK SURGERIES, 3 NECK SURGERY) - Immunization History Immunization Up to Date: Yes - Psycho-Social/Smoking History Smoking Status: No Smoking History: Never smoked Have you smoked in the past 12 months: No Number of Cigarettes Smoked Daily: 0 Information on smoking cessation initiated: No - Substance Abuse Hx (Audit-C & DAST Scrn) How often the patient has a drink containing alcohol: Never Score: In Men: 4 or > Positive; In Women: 3 or > Positive: 0 Screen Result (Pos requires Nsg. Audit-10AR): Negative In the last yr the pt used illegal drug/Rx for NonMed reason: No Score: Yes response is considered Positive: 0 Screen Result (Positive result requires Nsg. DAST-10): Negative Review of Systems - Review of Systems Able to Perform ROS?: Yes Comments:: 03/01/20 12:11 CONSTITUTIONAL: No fever, no chills, no fatigue EYES: No visual changes ENT: No ear pain, no sore throat CARDIOVASCULAR: No chest pain, no palpitations RESPIRATORY: No cough, no SOB GI: No abdominal pain, no nausea, no vomiting, no constipation, no diarrhea GENITOURINARY: No dysuria, no frequency, no hematuria MUSKULOSKELETAL: +back pain, +knee pain, +R elbow pains SKIN: No rash NEURO: No headache *Physical Exam - Vital Signs Last Vital Signs Temp Pulse Resp BP Pulse Ox 98.5 F 71 16 100/49 L 99 03/01/20 11:16 09/02/20 11:16 03/01/20 11:16 03/01/20 11:16 03/01/20 11:16 - Physical Exam 03/01/20 14:55 EXAMINATION CONSTITUTIONAL:Awake alert, frail-appearing; in mild to moderatedistress HEAD: Normocephalic; atraumatic EYES: PERRL; EOM intact; no icterus, conj-pink ENMT: External appears normal; normal oropharynx NECK: Supple; non-tender; + c3-4 midline ttp; Well-healed posterior cervical surgical incision noted CARD: Normal S1, S2; RESP: Normal chest excursion with respiration; breath sounds clear and equal bilaterally; no wheezes, rhonchi, or rales BACK: no deform; + T8-T12 midline and paraspinal ttp; = 5cm hematomata to right paraspinal area; L2-l4 midline ttp with well healed surgical incision noted. PELVIS: stable ABD: Soft, non-distended; non-tender; no palpable organomegaly, no palpable hernias EXT: Normal ROM in all four extremities; + minimal r knee erythema with FROM; no laxity with v/v; ant/posterior drawers are negtive. non-tender to palpation; previous amputation of right 1st-4th digits. SKIN: Warm, dry, no rash NEURO: No focal neurological deficiencies. 03/01/20 16:28 ED Treatment Course - LABORATORY CBC & Chemistry Diagram: 03/01/20 15:06 03/01/20 15:06 Medical Decision Making - Medical Decision Making 03/01/20 15:26 Patient states that he cannot and is not willing to attempt to lie flat for the CTs ordered. Patient states that even administration of IV narcotics and supplemental oxygen will not make a possible forearm I have advised him that the CT is the best possible test to evaluate for possible spinal fractures. He expressed understanding. And has refused. Will order spine x-rays. Will cancel CT. 03/01/20 16:29 X-rays of the T-spine reveal worsening wedging distally. Cervical and lumbar spine x-rays reveal no evidence of acute pathology. Cervical fusion hardware is noted. I discussed the case with Dr. Zavaleta of renal. Will admit patient for inpatient dialysis. Discharge - Discharge Information Problems reviewed: Yes Clinical Impression/Diagnosis: Weakness, Dehydration Wedge fracture of lumbar vertebra Qualifiers: Encounter type: subsequent encounter Lumbar vertebra fracture level: unspecified lumbar vertebra Fracture type: closed Fracture healing: with routine healing Qualified Code(s): S32.000D - Wedge compression fracture of unspecified lumbar vertebra, subsequent encounter for fracture with routine healing - Follow up/Referral Referrals: Nikolay Jones MD [Primary Care Provider] - - Patient Discharge Instructions - Post Discharge Activity
--- NOTE | 2020-03-01 15:04 | EKG ---
Test Reason : Blood Pressure : / mmHG Vent. Rate : 080 BPM Atrial Rate : 080 BPM P-R Int : 166 ms QRS Dur : 122 ms QT Int : 432 ms P-R-T Axes : 054 065 -28 degrees QTc Int : 498 ms POOR DATA QUALITY, INTERPRETATION MAY BE ADVERSELY AFFECTED NORMAL SINUS RHYTHM RIGHT BUNDLE BRANCH BLOCK ABNORMAL ECG WHEN COMPARED WITH ECG OF 06-AUG-2018 02:28, PREMATURE VENTRICULAR COMPLEXES ARE NO LONGER PRESENT QUESTIONABLE CHANGE IN QRS AXIS NONSPECIFIC T WAVE ABNORMALITY, WORSE IN LATERAL LEADS Confirmed by Nitin Hernández MD ([id number]) on 03/01/2020 3:04:24 PM Referred By: Confirmed By:Nitin Hernández MD
[2020-03-01] MEDS ORDERED: MORPHINE SULFATE 2 MG/ML VIAL ONE (15:10)
[2020-03-01 15:55] LABS: BASO % 0.8 % (0-2.0); EOS % 0.7 % (0-4.5); HEMOGLOBIN 12.7 GM/dL (11.7-16.9); LYMPH % 10.9 % (8-40); MCH 31.5 pg (25.7-33.7); MCHC 31.9 g/dl (32.0-35.9); MEAN PLT VOLUME 9.5 fl (7.5-11.1); MONO % 8.5 % (3.8-10.2); NEUT % 79.1 % (42.8-82.8); PLATELET COUNT 169 K/MM3 (134-434); RBC 4.04 M/mm3 (4.00-5.60); RDW 14.8 % (11.9-15.9); WHITE BLOOD COUNT 15.3 K/mm3 (4.0-10.0)
[2020-03-01 16:27] LABS: ALBUMIN 3.9 g/dl (3.4-5.0); BILIRUBIN,TOTAL 1.1 mg/dL (0.2-1); BLOOD UREA NITROGEN 66.7 mg/dL (7-18); CALCIUM 9.1 mg/dL (8.5-10.1); TOT PROT 8.3 g/dl (6.4-8.2)
--- NOTE | 2020-03-01 16:37 | CON.NEP ---
Consult - Past Medical History Cardio/Vascular: Yes: CAD, HTN, Hyperlipdemia Pulmonary: Yes: COPD Hepatobiliary: Yes: Hepatitis B Renal/: Yes: Renal Failure, Renal Inusuff, Hemodialysis Infectious Disease: Yes: Other (Hepatitis B) Musculoskeletal: Yes: Chronic low back pain, Other (back pain) Endocrine: Yes: Diabetes Mellitus - Past Surgical History Past Surgical History: Yes: Laminectomy, CABG - Alcohol/Substance Use Hx Alcohol Use: No - Smoking History Smoking history: Never smoked Have you smoked in the past 12 months: No Aproximately how many cigarettes per day: 0 - Social History ADL: Independent History of Recent Travel: Yes ([place] x 1 wk) Home Medications - Allergies Allergies/Adverse Reactions: Allergies Allergy/AdvReac Type Severity Reaction Status Date / Time No Known Allergies Allergy Verified 03/01/20 11:57 - Home Medications Home Medications: Ambulatory Orders Aspirin [ASA -] 81 mg PO DAILY 12/23/16 Lisinopril [Prinivil] 2.5 mg PO DAILY #30 tablet 05/30/17 Atorvastatin Ca [Lipitor] 10 mg PO DAILY 07/24/17 Metoprolol Succinate [Toprol Xl] 25 mg PO DAILY 07/24/17 Tenofovir Disoproxil Fumarate [Viread -] 300 mg PO WEEKLY 09/24/18 Nephrology Consult - Height Height: 5 ft 8 in - Weight Weight: 99.79 kg - BMI Body Mass Index (BMI): 33.4 - Lab Results CBC,BMP: CBC, BMP 03/01/20 15:06 03/01/20 15:06 - Physical Examination Vital Signs: Vital Signs Temperature 97.5 F L 03/01/20 16:00 Pulse Rate 82 03/01/20 16:00 Respiratory Rate 18 03/01/20 16:00 Blood Pressure 132/54 L 03/01/20 16:00 O2 Sat by Pulse Oximetry (%) 98 03/01/20 16:00
[2020-03-01] MEDS ORDERED: SODIUM CHLORIDE 1,000 ML IV SCH (16:45)
[2020-03-01 16:48] LABS: CREATININE 7.9 mg/dL (0.55-1.3); POTASSIUM 6.3 mmol/L (3.5-5.1)
[2020-03-01] MEDS ORDERED: SODIUM ZIRCONIUM CYCLOSILICATE (LOKELMA) 5 GM PACKET PO ONE (16:48)
[2020-03-01] MEDS ORDERED: INSULIN REGULAR HUMAN 100 UNITS/ML *VIAL IVPUSH ONE (17:25)
[2020-03-01] MEDS ORDERED: CALCIUM GLUCONATE 10% - 1,000 MG/10 ML VIAL IVPUSH ONE (17:25)
[2020-03-01] MEDS ORDERED: DEXTROSE 50%-WATER - 25 GM/50 ML VIAL IVPUSH ONE (17:25)
[2020-03-01] MEDS ORDERED: SODIUM CHLORIDE 250 ML IV PRN ×2 (17:45→19:36)
--- NOTE | 2020-03-01 18:17 | HP ---
CHIEF COMPLAINT:s/p fall PCP:Dr. Clinton Nephro: Dr. Yokasta Frazier HISTORY OF PRESENT ILLNESS: 64 yo M PMH DM, CKD on HD MWF, HTN, HLD, Hep C presented to ED after fall. Pt states he did not feel right just prior to fall. pt was unable to get up from the fall and had to call his friend for help. he endorses hitting R knee and back. denies dizziness. denies LOC. pt states he normally ambulates with a cane. Pt states that he has been seeing wound care for RLE wound and was supposed to follow up today Pt denies recent illness, denies f/c/n/v. denies cp. endorses sob- but states it is chronic denies worsening dyspnea , denies orthopnea ER course was notable for: (1) trop 6.2, K 6.3 (2)Dr. Waqar small, for dialysis today Recent Travel: denies PAST MEDICAL HISTORY: DM, CKD on HD MWF, HTN, HLD, Hep C PAST SURGICAL HISTORY: R toe amputation last year Social History: Smoking:denies Alcohol:denies Drugs: denies Allergies No Known Allergies Allergy (Verified 03/01/20 11:57) HOME MEDICATIONS: Home Medications Medication Instructions Recorded Aspirin [ASA -] 81 mg PO DAILY 12/23/16 Lisinopril [Prinivil] 2.5 mg PO DAILY #30 tablet 05/30/17 Atorvastatin Ca [Lipitor] 10 mg PO DAILY 07/24/17 Metoprolol Succinate [Toprol Xl] 25 mg PO DAILY 07/24/17 Tenofovir Disoproxil Fumarate 300 mg PO WEEKLY 09/24/18 [Viread -] REVIEW OF SYSTEMS CONSTITUTIONAL: Absent: fever, chills, diaphoresis, generalized weakness, malaise, loss of appetite, weight change HEENT: Absent: rhinorrhea, nasal congestion, throat pain, throat swelling, difficulty swallowing, mouth swelling, ear pain, eye pain, visual changes CARDIOVASCULAR: Absent: chest pain, syncope, palpitations, irregular heart rate, lightheadedness, peripheral edema RESPIRATORY: Absent: cough, shortness of breath, dyspnea with exertion, orthopnea, wheezing, stridor, hemoptysis GASTROINTESTINAL: Absent: abdominal pain, abdominal distension, nausea, vomiting, diarrhea, constipation, melena, hematochezia GENITOURINARY: Absent: dysuria, frequency, urgency, hesitancy, hematuria, flank pain, genital pain MUSCULOSKELETAL: Absent: myalgia, arthralgia, joint swelling, back pain, neck pain SKIN: Absent: rash, itching, pallor HEMATOLOGIC/IMMUNOLOGIC: Absent: easy bleeding, easy bruising, lymphadenopathy, frequent infections ENDOCRINE: Absent: unexplained weight gain, unexplained weight loss, heat intolerance, cold intolerance NEUROLOGIC: Absent: headache, focal weakness or paresthesias, dizziness, unsteady gait, seizure, mental status changes, bladder or bowel incontinence PSYCHIATRIC: Absent: anxiety, depression, suicidal or homicidal ideation, hallucinations. PHYSICAL EXAMINATION Vital Signs - 24 hr 03/01/20 03/01/20 11:16 16:00 Temperature 98.5 F 97.5 F L Pulse Rate 71 Pulse Rate [ 82 Left Radial] Respiratory 16 18 Rate Blood Pressure 100/49 L Blood Pressure 132/54 L [Right Arm] O2 Sat by Pulse 99 98 Oximetry (%) GENERAL: Awake, alert, and fully oriented, in no acute distress. HEAD: Normal with no signs of trauma. EARS, NOSE, THROAT: Moist mucous membranes. lesion on R tongue . NECK: Normal range of motion, supple, + hepatojugular LUNGS: Breath sounds equal, clear to auscultation bilaterally. No accessory muscle use. HEART: Regular rate and rhythm, normal S1 and S2 without murmur ABDOMEN: Soft, nontender, not distended, normoactive bowel sounds, no guarding, no rebound, no masses. MUSCULOSKELETAL: Normal range of motion at all joints. No bony deformities or tenderness. No CVA tenderness. UPPER EXTREMITIES: 2+ pulses, warm, well-perfused. No cyanosis. No peripheral edema. LOWER EXTREMITIES: 2+ pitting edema b/l. R 1-4 digits on foot amputation Laboratory Results - last 24 hr 03/01/20 03/01/20 15:06 15:06 WBC 15.3 H RBC 4.04 Hgb 12.7 Hct 40.0 MCV 99.0 H MCH 31.5 MCHC 31.9 L RDW 14.8 Plt Count 169 D MPV 9.5 Absolute Neuts (auto) 12.1 H Neutrophils % 79.1 Lymphocytes % 10.9 Monocytes % 8.5 Eosinophils % 0.7 Basophils % 0.8 Nucleated RBC % 0 Sodium 136 Potassium 6.3 H* Chloride 102 Carbon Dioxide 20 L Anion Gap 14 BUN 66.7 H Creatinine 7.9 H* Est GFR (CKD-EPI)AfAm 7.44 Est GFR (CKD-EPI)NonAf 6.42 Random Glucose 120 H Calcium 9.1 Total Bilirubin 1.1 H AST 85 H ALT 72 H Alkaline Phosphatase 95 Creatine Kinase 155 Creatine Kinase Index 10.9 H CK-MB (CK-2) 16.9 H Troponin I 6.21 H* Total Protein 8.3 H Albumin 3.9 ASSESSMENT/PLAN: 64 yo M PMH DM, CKD on HD MWF, HTN, HLD, Hep C presented to ED after fall. Pt states he did not feel right just prior to fall. he endorses hitting R knee and back. Pt is admitted for tropinemia, r/o ACS Tropinemia r/o ACS -6.2--> 5.6 --EKG reviewed. rate 80, QTc 498, sinus, RBBB- also seen 2019. rpt EKG pending - cont tele monitoring -Cardio, Dr. Jones consultd. once Head CT is negative-->Heparin drip, Asa. - will start statin - CXR reviewed. likely also has component of HF - will get Echo CKD, on dialysis - for dialysis today - Dr. Zavaleta aware HTN - if BP tolerates, resume BB HLD -lipid panel in AM - will start statin DM - ISS,. BGM - will get A1C Fall - r/o pre- syncope as cause/ cont tele monitoring - orthostatic VS - pending CT head - XR reviewed foot wound - will consult podiatry DVT ppx: Hep SQ Dispo: tele ATTENDING PHYSICIAN STATEMENT I saw and evaluated the patient. I reviewed the resident's note and discussed the case with the resident. I agree with the resident's findings and plan as documented. SUBJECTIVE: OBJECTIVE: ASSESSMENT AND PLAN:
[2020-03-01] MEDS ORDERED: morphine SULFATE 4 MG/ML VIAL ONE (18:35)
[2020-03-01] MEDS ORDERED: CALCIUM GLUCONATE 10% - 1,000 MG/10 ML VIAL ONE (18:35)
--- NOTE | 2020-03-01 19:25 | CON.NEP ---
Consult Consult Specialty:: Nephrology Referred by:: ED Reason for Consultation:: ESRD on HD with hyperkalemia - History of Present Illness Chief Complaint: Fall History of Present Illness: This is a 64 year old male with history of ESRD on HD, CAD s/p CABG, hypertension, PVD who presented from home with a fall and found to have elevated troponins and potassium of 6.3. Pt seen and examined at the bedside. He denies any chest pain, shortness of breath, palpitations. He reports feeling weak at home and falling but cannot recount how exactly he fall and what he hit. He last had dialysis on Friday and there were not able to remove the usual amount of fluid from him. He also reports a poor appetite over the last few days. He denies any N/V or diaphoresis. - History Source History Provided By: Patient Limitations to Obtaining History: No Limitations - Past Medical History Cardio/Vascular: Yes: CAD, HTN, Hyperlipdemia Pulmonary: Yes: COPD Hepatobiliary: Yes: Hepatitis B Renal/: Yes: Renal Failure, Renal Inusuff, Hemodialysis Infectious Disease: Yes: Other (Hepatitis B) Musculoskeletal: Yes: Chronic low back pain, Other (back pain) Endocrine: Yes: Diabetes Mellitus - Past Surgical History Past Surgical History: Yes: Laminectomy, CABG - Alcohol/Substance Use Hx Alcohol Use: No - Smoking History Smoking history: Never smoked Have you smoked in the past 12 months: No Aproximately how many cigarettes per day: 0 - Social History ADL: Independent History of Recent Travel: Yes ([place] x 1 wk) Home Medications - Allergies Allergies/Adverse Reactions: Allergies Allergy/AdvReac Type Severity Reaction Status Date / Time No Known Allergies Allergy Verified 03/01/20 11:57 - Home Medications Home Medications: Ambulatory Orders Aspirin [ASA -] 81 mg PO DAILY 12/23/16 Atorvastatin Ca [Lipitor] 10 mg PO DAILY 07/24/17 Metoprolol Succinate [Toprol Xl] 50 mg PO DAILY 07/24/17 Lisinopril 2.5 mg PO DAILY 03/01/20 Tenofovir Disoproxil Fumarate [Viread -] 300 mg PO WEEKLY 03/01/20 Family Medical History Family History: Unremarkable Review of Systems - Review of Systems Constitutional: reports: Lethargy, Loss of Appetite, Weakness Eyes: reports: No Symptoms HENT: reports: No Symptoms Neck: reports: No Symptoms Cardiovascular: denies: Chest Pain, Edema, Palpitations, Shortness of Breath Respiratory: reports: Orthopnea. denies: SOB, SOB on Exertion Gastrointestinal: denies: Abdominal Pain, Nausea Musculoskeletal: reports: No Symptoms Integumentary: reports: No Symptoms Neurological: reports: No Symptoms Endocrine: reports: No Symptoms Nephrology Consult - Height Height: 5 ft 8 in - Weight Weight: 99.79 kg - BMI Body Mass Index (BMI): 33.4 - Lab Results CBC,BMP: CBC, BMP 03/01/20 15:06 03/01/20 15:06 Anion Gap: Anion Gap Anion Gap 14 MMOL/L (8-16) 03/01/20 15:06 - Imaging Chest X-ray: Report Reviewed, Image Reviewed EKG: Report Reviewed - Physical Examination Vital Signs: Vital Signs Temperature 97.5 F L 03/01/20 16:00 Pulse Rate 82 03/01/20 16:00 Respiratory Rate 18 03/01/20 16:00 Blood Pressure 132/54 L 03/01/20 16:00 O2 Sat by Pulse Oximetry (%) 98 03/01/20 16:00 Constitutional: Yes: No Distress, Calm Eyes: Yes: Conjunctiva Clear HENT: Yes: Atraumatic Neck: Yes: Supple Cardiovascular: Yes: Regular Rate and Rhythm Respiratory: Yes: Regular, CTA Bilaterally, Diminished. No: Rales, Rhonchi Gastrointestinal: Yes: Soft Access for Hemodialysis: AV Fistula Extremities: No: Cyanosis Edema: No Neurological: Yes: Alert Assessment/Plan 64 year old male with history of ESRD on HD, CAD s/p CABG, hyperten andrae, PVD who presented from home with a fall and found to have elevated troponins and potassium of 6.3. 1. Elevated troponins w/o chest pain r/o ACS 2. ESRD on HD 3. Hyperkalemia 4. Hx of CAD s/p CABG 5. Leukocytosis 6. Generalized weakness 7. Fall/syncope Given hyperkalemia pt will need urgent dialysis. Case discussed with cardiology and they are ok with dialysis being done despite elevated cardiac enzymes. will plan for for an abridged treatment with limited UF. If pt experiences any chest pain will discontinue the treatment. Will check blood cultures with dialysis to r/o occult infection given leukocytosis and generalized weakness. Renal diet. Anticoagulation as needed per cardiology. Continue [place], ASA, statin. For CT head to r/o any ICH s/p fall if pt is agreeable. Thank you Jose Zavaleta
[2020-03-01] MEDS ORDERED: MAGNESIUM SULF 50% (8.12 MEQ/2 ML-1 GM VIAL) IVPB ONE (19:47)
[2020-03-01] MEDS ORDERED: HEPARIN NA (PORCINE) 5,000 UNITS/ML 1ML VIAL IVPUSH PRN ×2 (20:42)
[2020-03-01] MEDS ORDERED: ASPIRIN 325 MG TABLET PO ONE (20:44)
[2020-03-01] MEDS ORDERED: HEPARIN INFUSION - 25,000 UNITS/500 ML INFUS.BAG IVPB SCH (20:45)
[2020-03-01] MEDS ORDERED: HEPARIN NA (PORCINE) 5,000 UNITS/ML 1ML VIAL SQ SCH (22:00)
[2020-03-01] MEDS ORDERED: ATORVASTATIN CA 40 MG TABLET (FP) PO SCH (22:00)
[2020-03-01 22:13] LABS: ALBUMIN 3.5 g/dl (3.4-5.0); BLOOD UREA NITROGEN 71.6 mg/dL (7-18); CALCIUM 8.7 mg/dL (8.5-10.1); POTASSIUM 5.7 mmol/L (3.5-5.1); TOT PROT 7.4 g/dl (6.4-8.2)
[2020-03-01 22:21] LABS: CREATININE 8.1 mg/dL (0.55-1.3)
[2020-03-01] MEDS ORDERED: ATORVASTATIN CA 40 MG TABLET (FP) ONE (23:56)
[2020-03-01] MEDS ORDERED: ASPIRIN 325 MG ENTERIC COATED TABLET (FP) ONE (23:56)
[2020-03-02 00:11] LABS: CALCIUM 8.4 mg/dL (8.5-10.1); CREATININE 3.2 mg/dL (0.55-1.3); POTASSIUM 3.5 mmol/L (3.5-5.1)
[2020-03-02 00:20] LABS: BLOOD UREA NITROGEN 25.1 mg/dL (7-18)
[2020-03-02] MEDS: INSULIN SLIDING SCALE (NOVOLOG) 1 VIAL SQ SCH ×3 (00:44→13:08)
[2020-03-02] MEDS ORDERED: ACETAMINOPHEN 325 MG TABLET (FP) PO PRN (01:06)
[2020-03-02] MEDS ORDERED: LIDOCAINE 5% TOPICAL PATCH ONE ×2 (01:47→10:47)
[2020-03-02] MEDS ORDERED: ENOXAPARIN NA (PORCINE) 100 MG/1 ML DISP.SYRIN SQ SCH ×2 (01:50→03:12)
[2020-03-02] MEDS ORDERED: HEPARIN NA (PORCINE) 5,000 UNITS/ML 1ML VIAL IVPUSH PRN ×2 (08:11)
[2020-03-02] MEDS ORDERED: HEPARIN - 25,000 UNIT in SODIUM CHLORIDE 495 ML IV SCH (08:15)
[2020-03-02] MEDS ORDERED: LIDOCAINE 5% TOPICAL PATCH TP SCH (10:00)
[2020-03-02] MEDS ORDERED: SODIUM ZIRCONIUM CYCLOSILICATE (LOKELMA) 5 GM PACKET PO SCH (10:00)
[2020-03-02] MEDS ORDERED: ASPIRIN 81 MG CHEWABLE TABLETS PO SCH (10:00)
[2020-03-02] MEDS ORDERED: ASPIRIN 81 MG CHEWABLE TABLETS ONE (10:47)
[2020-03-02] MEDS ORDERED: metoPROLOL SUCCINATE 25 MG TAB.SR.24H (FP) ONE (10:47)
--- NOTE | 2020-03-02 11:10 | CONSULT ---
Consult Consult Specialty:: Podiatry Reason for Consultation:: wound right foot - History of Present Illness History of Present Illness: Possible VT - Past Medical History Cardio/Vascular: Yes: CAD, HTN, Hyperlipdemia Pulmonary: Yes: COPD Hepatobiliary: Yes: Hepatitis B Renal/: Yes: Renal Failure, Renal Inusuff, Hemodialysis Infectious Disease: Yes: Other (Hepatitis B) Musculoskeletal: Yes: Chronic low back pain, Other (back pain) Endocrine: Yes: Diabetes Mellitus - Past Surgical History Past Surgical History: Yes: Laminectomy, CABG - Alcohol/Substance Use Hx Alcohol Use: No - Smoking History Smoking history: Never smoked Have you smoked in the past 12 months: No Aproximately how many cigarettes per day: 0 - Social History ADL: Independent History of Recent Travel: Yes ([place] x 1 wk) Home Medications - Allergies Allergies/Adverse Reactions: Allergies Allergy/AdvReac Type Severity Reaction Status Date / Time No Known Allergies Allergy Verified 03/01/20 11:57 - Home Medications Home Medications: Ambulatory Orders Aspirin [ASA -] 81 mg PO DAILY 12/23/16 Metoprolol Succinate [Toprol Xl] 50 mg PO DAILY 07/24/17 Tenofovir Disoproxil Fumarate [Viread -] 300 mg PO WEEKLY 03/01/20 Acetaminophen [Tylenol .Regular Strength -] 325 mg PO Q6H PRN tablet 03/02/20 Atorvastatin Ca [Lipitor] 40 mg PO HS tablet 03/02/20 Clopidogrel Bisulfate [Plavix -] 75 mg PO DAILY tablet 03/02/20 Heparin - 1,000 unit IVPUSH PRN PRN vial 03/02/20 Heparin - 1,000 unit IVPUSH PRN PRN vial 03/02/20 Heparin - 5,000 unit IVPUSH PRN PRN vial 03/02/20 Heparin - 5,000 unit IVPUSH PRN PRN vial 03/02/20 Heparin - 5,000 unit SQ TID vial 03/02/20 Heparin - 25,000 unit IV TITR vial 03/02/20 Insulin Sliding Scale [Novolog Vial Sliding Scale -] 1 vial SQ ACHS units 03/02/20 Lidocaine 5% Patch [Lidoderm -] 1 patch TP DAILY patch 03/02/20 Lidocaine Patch Removal [Lidoderm Patch Removal] 1 each MC DAILY@2200 each 03/02/20 Family Medical History Family History: Unremarkable Physical Exam Vital Signs: Vital Signs Temperature 97.8 F 03/01/20 19:10 Pulse Rate 89 03/02/20 10:40 Respiratory Rate 18 03/02/20 10:40 Blood Pressure 115/62 03/02/20 10:40 O2 Sat by Pulse Oximetry (%) 98 03/02/20 10:40 Wound/Incision: Yes: Other (mi? +wound right foot plantar aspect improving, - cellulitis, -drainage,) Labs: CBC, BMP 03/01/20 15:06 03/01/20 23:02 Assessment/Plan mi chronic wound right Santyl to wound area. Will follow if admitted. Otherwise outpatient care in [facility] once pt is stabilized for VT. Will follow till dc.
[2020-03-02] MEDS ORDERED: HEPARIN INFUSION - 25,000 UNITS/500 ML INFUS.BAG IVPB ONE (11:30)
[2020-03-02 12:15] LABS: BASO % 0.3 % (0-2.0); HEMATOCRIT 38.1 % (35.4-49); HEMOGLOBIN 12.3 GM/dL (11.7-16.9); MCH 31.1 pg (25.7-33.7); MCHC 32.3 g/dl (32.0-35.9); MEAN CELL VOLUME 96.3 fl (80-96); MEAN PLT VOLUME 8.8 fl (7.5-11.1); MONO % 9.8 % (3.8-10.2); NEUT % 79.9 % (42.8-82.8); PLATELET COUNT 199 K/MM3 (134-434); RBC 3.95 M/mm3 (4.00-5.60); RDW 14.5 % (11.9-15.9); WHITE BLOOD COUNT 14.3 K/mm3 (4.0-10.0)
--- NOTE | 2020-03-02 12:15 | PN ---
Teaching Attending Note Name of Resident: Rashida Garcia ATTENDING PHYSICIAN STATEMENT I saw and evaluated the patient. I reviewed the resident's note and discussed the case with the resident. I agree with the resident's findings and plan as documented. SUBJECTIVE: Patient seen and examined at bedside, denies CP/SOB, Trop 6>>5, spoke with Cardiology likely 2/2 previous ND v.s. severe heart strain needing hemodialysis, will get CT head if negative will start ACS then take patient for HD as per Cardiology and Renal recommendations. Patient currently comfortable, VS stable, cocktail given for hyperkalemia. OBJECTIVE: GA calm, AAOx3, speaking in full sentences, lightly pale appearing HEENT nC/AT, EOMI, dry MM, no scalp lacerations or trauma Chest CTAB, no crackles CVS s1, S2+, RRR Abd obese, Soft, NT, ND, BS+ ext no LE edema, no calf tenderness, AV fistula site w/ good thrill Vital Signs (72 hours) 03/01/20 03/01/20 03/01/20 11:16 16:00 19:10 Temperature 98.5 F 97.5 F L 97.8 F Pulse Rate 71 84 Pulse Rate [ 82 Left Radial] Respiratory 16 18 18 Rate Blood Pressure 100/49 L 117/46 L Blood Pressure 132/54 L [Right Arm] O2 Sat by Pulse 99 98 Oximetry (%) 03/01/20 03/01/20 03/01/20 19:19 20:15 20:45 Temperature Pulse Rate 79 83 Pulse Rate [ 78 Left Radial] Respiratory 18 18 18 Rate Blood Pressure 118/75 119/65 Blood Pressure 185/56 H [Right Arm] O2 Sat by Pulse 94 L Oximetry (%) 03/01/20 03/01/20 03/01/20 21:15 21:45 22:15 Temperature Pulse Rate 87 92 H 82 Pulse Rate [ Left Radial] Respiratory 18 18 18 Rate Blood Pressure 111/71 122/70 92/45 L Blood Pressure [Right Arm] O2 Sat by Pulse Oximetry (%) 03/01/20 03/01/20 03/02/20 22:45 23:08 02:52 Temperature Pulse Rate 84 84 Pulse Rate [ 88 Left Radial] Respiratory 18 18 16 Rate Blood Pressure 105/71 111/73 Blood Pressure 123/58 L [Right Arm] O2 Sat by Pulse 98 Oximetry (%) 03/02/20 03/02/20 03/02/20 06:00 07:57 10:40 Temperature Pulse Rate Pulse Rate [ 71 89 Left Radial] Respiratory 15 18 Rate Blood Pressure Blood Pressure 106/42 L 115/62 [Right Arm] O2 Sat by Pulse 99 99 98 Oximetry (%) Laboratory Results - last 24 hr 03/01/20 03/01/20 03/01/20 15:06 15:06 18:27 WBC 15.3 H RBC 4.04 Hgb 12.7 Hct 40.0 MCV 99.0 H MCH 31.5 MCHC 31.9 L RDW 14.8 Plt Count 169 D MPV 9.5 Absolute Neuts (auto) 12.1 H Neutrophils % 79.1 Lymphocytes % 10.9 Monocytes % 8.5 Eosinophils % 0.7 Basophils % 0.8 Nucleated RBC % 0 PT with INR INR PTT (Actin FS) Sodium 136 Potassium 6.3 H* Chloride 102 Carbon Dioxide 20 L Anion Gap 14 BUN 66.7 H Creatinine 7.9 H* Est GFR (CKD-EPI)AfAm 7.44 Est GFR (CKD-EPI)NonAf 6.42 POC Glucometer Random Glucose 120 H Calcium 9.1 Total Bilirubin 1.1 H AST 85 H ALT 72 H Alkaline Phosphatase 95 Creatine Kinase 155 Creatine Kinase Index 10.9 H CK-MB (CK-2) 16.9 H Troponin I 6.21 H* 5.72 H* Total Protein 8.3 H Albumin 3.9 COVID-19 (CAMILO) 03/01/20 03/01/20 03/01/20 18:27 20:15 23:02 WBC RBC Hgb Hct MCV MCH MCHC RDW Plt Count MPV Absolute Neuts (auto) Neutrophils % Lymphocytes % Monocytes % Eosinophils % Basophils % Nucleated RBC % PT with INR INR PTT (Actin FS) Sodium 136 140 Potassium 5.7 H 3.5 Chloride 102 101 Carbon Dioxide 18 L 30 Anion Gap 15 9 BUN 71.6 H 25.1 H Creatinine 8.1 H* 3.2 H Est GFR (CKD-EPI)AfAm 7.22 22.18 Est GFR (CKD-EPI)NonAf 6.23 19.13 POC Glucometer Random Glucose 130 H 90 Calcium 8.7 8.4 L Total Bilirubin 1.0 AST 89 H ALT 81 H Alkaline Phosphatase 87 Creatine Kinase Creatine Kinase Index CK-MB (CK-2) Troponin I Total Protein 7.4 Albumin 3.5 COVID-19 ([facility]ILO) Not detected 03/01/20 03/02/20 03/02/20 23:30 00:24 06:45 WBC RBC Hgb Hct MCV MCH MCHC RDW Plt Count MPV Absolute Neuts (auto) Neutrophils % Lymphocytes % Monocytes % Eosinophils % Basophils % Nucleated RBC % PT with INR Cancelled INR Cancelled PTT (Actin FS) Cancelled Sodium Potassium Chloride Carbon Dioxide Anion Gap BUN Creatinine Est GFR (CKD-EPI)AfAm Est GFR (CKD-EPI)NonAf POC Glucometer 86 120 Random Glucose Calcium Total Bilirubin AST ALT Alkaline Phosphatase Creatine Kinase Creatine Kinase Index CK-MB (CK-2) Troponin I Total Protein Albumin COVID-19 (CAMILO) Home Medications Medication Instructions Recorded Aspirin [ASA -] 81 mg PO DAILY 12/23/16 Atorvastatin Ca [Lipitor] 10 mg PO DAILY 07/24/17 Metoprolol Succinate [Toprol Xl] 50 mg PO DAILY 07/24/17 Lisinopril 2.5 mg PO DAILY 03/01/20 Tenofovir Disoproxil Fumarate 300 mg PO WEEKLY 03/01/20 [Viread -] Current Medications Generic Name Dose Route Start Last Admin Trade Name Freq PRN Reason Stop Dose Admin Acetaminophen 325 mg 03/02/20 01:06 03/02/20 01:55 Tylenol - PO 325 mg Q6H PRN Administration PAIN LEVEL 4 - 6 Aspirin 81 mg 03/02/20 10:00 03/02/20 10:57 Asa - PO 81 mg DAILY LORRI Administration Atorvastatin Calcium 40 mg 03/01/20 22:00 03/02/20 00:04 Lipitor - PO 40 mg HS LORRI Administration Heparin Sodium (Porcine) 1,000 unit 03/02/20 08:11 Heparin - IVPUSH PRN PRN Heparin Heparin Sodium (Porcine) 5,000 unit 03/02/20 08:11 Heparin - IVPUSH PRN PRN Heparin Sodium Chloride 1,000 mls @ 50 mls/hr 03/01/20 16:45 03/01/20 17:12 Normal Saline - IV 03/02/20 16:41 50 mls/hr ASDIR LORRI Administration Sodium Chloride 250 mls @ 3,000 mls/hr 03/01/20 17:45 Normal Saline - IV 03/02/20 17:45 PRN PRN Hypotension during Dialysis Sodium Chloride 250 mls @ 3,000 mls/hr 03/01/20 19:36 Normal Saline - IV 03/02/20 19:36 PRN PRN Hypotension during Dialysis Heparin Sodium (Porcine) 25, 500 mls @ 20 mls/hr 03/02/20 08:15 03/02/20 11:43 000 unit/ Sodium Chloride IV 1,000 unit/hr TITR LORRI 20 mls/hr Administration Protocol 1,000 UNIT/HR Insulin Aspart 1 vial 03/01/20 22:00 03/02/20 06:48 Novolog Vial Sliding Scale - SQ Not Given ACHS LORRI Protocol Lidocaine 1 patch 03/02/20 10:00 03/02/20 10:57 Lidoderm Patch - TP 1 patch DAILY LORRI Administration Metoprolol Succinate 50 mg 03/02/20 10:00 03/02/20 10:57 Toprol Xl - PO 50 mg DAILY LORRI Administration Miscellaneous 1 each 03/02/20 22:00 Lidoderm Patch Removal MC DAILY@2200 LORRI Sodium Zirconium Cyclosilicate 10 gm 03/02/20 10:00 Lokelma PO DAILY LORRI ASSESSMENT AND PLAN: 64 M ESRD on HD Troponemia suspicious for NSTEMI Hyperkalemia S/p fall ?mechanical v.s. syncope HTn HLD T2Dm Plan: Obtain CT head w/o contrast (patient initially refusing then agreed for CT head), if negative start ACS protocol w/ Heparin gtt, ASA full dose, statin, BB HD after CT head Continue to trend troponins to ensure downtrend Tele monitoring Cardiology following Renal following DVT ppx: Heparin (if CT head negative for ICH)
[2020-03-02 12:32] LABS: INR 1.39 (0.83-1.09); PROTHROMBIN TIME (PATIENT) 16.4 SEC (9.7-13.0)
[2020-03-02 12:35] LABS: ACTIVATED PTT 39.5 SECONDS (25.2-36.5)
--- NOTE | 2020-03-02 12:38 | CONSULT ---
- Consultation REQUESTING PROVIDER: Garrett Hanson - Vascular Surgery CONSULT REQUEST: We have been asked to surgically evaluate this patient for cold RLE History Provided By: Patient Limitations to Obtaining History: No Limitations Hospitalist: Ravindra Rudd MD HPI: Called to [place] 64yo male w/ PMHx as noted below. Presents to [facility] ED s/p fall while at home and c/o low back pain (chronic), right knee and elbow pain. in ED found to have elevated troponins and potassium of 6.3. S/p HD last night with 1.5L removed as per Dr. Zavaleta's note. Patient seen/eval by Podiatry who said right foot cold. Patient not c/o of any rest pain to leg/foot. Currently, patient getting ECHO. He is resting comfortably without complaint. denies n/v/f/c, CP, palpitations, SOB or VALADEZ. PMHx: PVD, CAD, HTN, Hyperlipdemia, COPD, Morbid Obesity, Hepatitis B, Renal Failure, Renal Inusuff, Hemodialysis, Chronic low back pain, Diabetes Mellitus PSHx: Laminectomy, CABG, Right foot toes 1-4 amputated Home Meds Aspirin [ASA -] 81 mg PO DAILY 12/23/16 Lisinopril [Prinivil] 2.5 mg PO DAILY #30 tablet 05/30/17 Atorvastatin Ca [Lipitor] 10 mg PO DAILY 07/24/17 Metoprolol Succinate [Toprol Xl] 25 mg PO DAILY 07/24/17 Tenofovir Disoproxil Fumarate [Viread -] 300 mg PO WEEKLY 09/24/18 Allergies: NKDA ROS: 12 systems reviewed and considered negative except for what's contained in the HPI. PE: GENERAL: A&O. NAD LUNGS: Unlabored respirations on room air HEART: RRR ABD: Obese habitus. Soft, NT. ND. UE: 2+ pulses, warm, well-perfused. No cyanosis. No peripheral edema. LE: 2+ pitting edema b/l. Digital amputation right foot toes 1-4 (site well healed, no signs of infection). Temperature change starting below knee and progressing all the way down to amputation. Ischemic changes appear to heel. Cap refill ~ 3 sec. Denies any pain with movement. Unable to palpate or doppler DP or PT Last Vital Signs Temp Pulse Resp BP Pulse Ox 97.8 F 89 18 115/62 98 03/01/20 19:10 03/02/20 10:40 03/02/20 10:40 03/02/20 10:40 03/02/20 10:40 CBC, BMP 03/02/20 11:15 INR, PTT INR 1.39 (0.83-1.09) H 03/02/20 11:15 Serology Tests 03/01/20 18:27 COVID-19 ([facility]IL[facility]) Not detected A/P: 64 yo male admitted s/p fall and now c/o low back (chronic in nature), r ight knee pain, right elbow pain. In ED found to have elevated Troponins and Hyperkalemia 6.3. Now s/p HD and K 3.5 last night. Has progressively cool RLE from knee extending to foot amp site. Ischemic change to heel. Unable to palpate of doppler DP or PT. -f/u RLE Arterial Duplex -Possible CO2 Angio 03/03 pending results -Medical optimization/clearance -Cardio Consult; Echo pending -Tight glycemic control; ISS -Type and Screen -NPO after midnight Above plan discussed with Dr. Hanson and agrees Problem List - Problems (1) Accidental fall Code(s): W19.XXXA - UNSPECIFIED FALL, INITIAL ENCOUNTER Qualifiers: Encounter type: initial encounter Qualified Code(s): W19.XXXA - Unspecified fall, initial encounter (2) Diabetes Code(s): E11.9 - TYPE 2 DIABETES MELLITUS WITHOUT COMPLICATIONS (3) ESRD (end stage renal disease) on dialysis Code(s): N18.6 - END STAGE RENAL DISEASE; Z99.2 - DEPENDENCE ON RENAL DIALYSIS Visit type - Case Type Case Type: ED Admission - Emergency Emergency Visit: Yes ED Registration Date: 03/01/20 Care time: The patient presented to the Emergency Department on the above date and was hospitalized for further evaluation of their emergent condition. - New patient This patient is new to me today: Yes Date on this admission: 03/02/20
--- NOTE | 2020-03-02 12:42 | PN ---
Progress Note, Physician Chief Complaint: Fall History of Present Illness: Seen and examined at the bedside in the ER awake and alert offers no complaints denies any sob, cp, fever, chills s/p dialysis yesterday evening with 1.5L UF - Current Medication List Current Medications: Active Medications Acetaminophen (Tylenol -) 325 mg PO Q6H PRN PRN Reason: PAIN LEVEL 4 - 6 Last Admin: 03/02/20 01:55 Dose: 325 mg Documented by: Aspirin (Asa -) 81 mg PO DAILY [facility] Last Admin: 03/02/20 10:57 Dose: 81 mg Documented by: Atorvastatin Calcium (Lipitor -) 40 mg PO HS [facility] Last Admin: 03/02/20 00:04 Dose: 40 mg Documented by: Heparin Sodium (Porcine) (Heparin -) 1,000 unit IVPUSH PRN PRN PRN Reason: Heparin Heparin Sodium (Porcine) (Heparin -) 5,000 unit IVPUSH PRN PRN PRN Reason: Heparin Sodium Chloride (Normal Saline -) 1,000 mls @ 50 mls/hr IV ASDIR [facility] Stop: 03/02/20 16:41 Last Admin: 03/01/20 17:12 Dose: 50 mls/hr Documented by: Sodium Chloride (Normal Saline -) 250 mls @ 3,000 mls/hr IV PRN PRN PRN Reason: Hypotension during Dialysis Stop: 03/02/20 17:45 Sodium Chloride (Normal Saline -) 250 mls @ 3,000 mls/hr IV PRN PRN PRN Reason: Hypotension during Dialysis Stop: 03/02/20 19:36 Heparin Sodium (Porcine) 25, (000 unit/ Sodium Chloride) 500 mls @ 20 mls/hr IV TITR [facility]; Protocol Last Admin: 03/02/20 11:43 Dose: 1,000 unit/hr, 20 mls/hr Documented by: Insulin Aspart (Novolog Vial Sliding Scale -) 1 vial SQ ACHS [facility]; Protocol Last Admin: 03/02/20 06:48 Dose: Not Given Documented by: Lidocaine (Lidoderm Patch -) 1 patch TP DAILY [facility] Last Admin: 03/02/20 10:57 Dose: 1 patch Documented by: Metoprolol Succinate (Toprol Xl -) 50 mg PO DAILY [facility] Last Admin: 03/02/20 10:57 Dose: 50 mg Documented by: Miscellaneous (Lidoderm Patch Removal) 1 each DAILY@2200 [facility] Sodium Zirconium Cyclosilicate (Lokelma) 10 gm PO DAILY [facility] - Objective Vital Signs: Vital Signs Temperature 97.8 F 03/01/20 19:10 Pulse Rate 89 03/02/20 10:40 Respiratory Rate 18 03/02/20 10:40 Blood Pressure 115/62 03/02/20 10:40 O2 Sat by Pulse Oximetry (%) 98 03/02/20 10:40 Constitutional: Yes: No Distress, Calm HENT: Yes: Atraumatic Neck: Yes: Supple Cardiovascular: Yes: Regular Rate and Rhythm Respiratory: Yes: Regular, CTA Bilaterally Gastrointestinal: Yes: Soft Edema: Yes Neurological: Yes: Alert, Oriented Labs: CBC, BMP 03/02/20 11:15 INR, PTT INR 1.39 (0.83-1.09) H 03/02/20 11:15 Assessment/Plan 64 year old male with history of ESRD on HD, CAD s/p CABG, hypertension, PVD who presented from home with a fall and found to have elevated troponins and potassium of 6.3. 1. Elevated troponins w/o chest pain r/o ACS 2. ESRD on HD 3. Hyperkalemia 4. Hx of CAD s/p CABG 5. Leukocytosis 6. Generalized weakness 7. Fall/syncope s/p dialysis yesterday with improvement in hyperkalemia. No acute need for renal replacement therapy today, next planned dialysis is tomorrow. Trend Cardiac enzymes Heparin gtt as per Cardiology Follow up blood cultures. Renal diet. Continue [place], ASA, statin. CT head w/o evidence of ICH. Thank you Jose Zavaleta
[2020-03-02] MEDS ORDERED: SODIUM CHLORIDE 250 ML IV PRN (12:45)
--- NOTE | 2020-03-02 12:57 | PN ---
Teaching Attending Note Name of Resident: Rashida Garcia ATTENDING PHYSICIAN STATEMENT I saw and evaluated the patient. I reviewed the resident's note and discussed the case with the resident. I agree with the resident's findings and plan as documented. SUBJECTIVE: pt seen and examined at bedside OBJECTIVE: Last Vital Signs Temp Pulse Resp BP Pulse Ox 97.8 F 89 18 115/62 98 03/01/20 19:10 03/02/20 10:40 03/02/20 10:40 03/02/20 10:40 03/02/20 10:40 GENERAL: Awake, alert, and fully oriented, in no acute distress. LUNGS: Breath sounds equal, clear to auscultation bilaterally. No wheezes, and no crackles. No accessory muscle use. HEART: Regular rate and rhythm, normal S1 and S2 ABDOMEN: Soft, nontender, not distended LOWER EXTREMITIES: 2+ pulses, warm, well-perfused. No calf tenderness. +2 edema. NEUROLOGICAL: Cranial nerves II-XII intact. Normal speech. CBCD WBC 14.3 K/mm3 (4.0-10.0) H 03/02/20 11:15 RBC 3.95 M/mm3 (4.00-5.60) L 03/02/20 11:15 Hgb 12.3 GM/dL (11.7-16.9) 03/02/20 11:15 Hct 38.1 % (35.4-49) 03/02/20 11:15 MCV 96.3 fl (80-96) H 03/02/20 11:15 MCHC 32.3 g/dl (32.0-35.9) 03/02/20 11:15 RDW 14.5 % (11.9-15.9) 03/02/20 11:15 Plt Count 199 K/MM3 (134-434) 03/02/20 11:15 MPV 8.8 fl (7.5-11.1) 03/02/20 11:15 CMP Sodium 140 mmol/L (136-145) 03/01/20 23:02 Potassium 3.5 mmol/L (3.5-5.1) 03/01/20 23:02 Chloride 101 mmol/L (98-107) 03/01/20 23:02 Carbon Dioxide 30 mmol/L (21-32) 03/01/20 23:02 Anion Gap 9 MMOL/L (8-16) 03/01/20 23:02 BUN 25.1 mg/dL (7-18) H 03/01/20 23:02 Creatinine 3.2 mg/dL (0.55-1.3) H 03/01/20 23:02 Calcium 8.4 mg/dL (8.5-10.1) L 03/01/20 23:02 Total Bilirubin 1.0 mg/dL (0.2-1) 03/01/20 20:15 AST 89 U/L (15-37) H 03/01/20 20:15 ALT 81 U/L (13-61) H 03/01/20 20:15 Alkaline Phosphatase 87 U/L (45-117) 03/01/20 20:15 Total Protein 7.4 g/dl (6.4-8.2) 03/01/20 20:15 Albumin 3.5 g/dl (3.4-5.0) 03/01/20 20:15 Active Medications Acetaminophen (Tylenol -) 325 mg PO Q6H PRN PRN Reason: PAIN LEVEL 4 - 6 Last Admin: 03/02/20 01:55 Dose: 325 mg Documented by: Aspirin (Asa -) 81 mg PO DAILY [facility] Last Admin: 03/02/20 10:57 Dose: 81 mg Documented by: Atorvastatin Calcium (Lipitor -) 40 mg PO HS [facility] Last Admin: 03/02/20 00:04 Dose: 40 mg Documented by: Heparin Sodium (Porcine) (Heparin -) 1,000 unit IVPUSH PRN PRN PRN Reason: Heparin Heparin Sodium (Porcine) (Heparin -) 5,000 unit IVPUSH PRN PRN PRN Reason: Heparin Sodium Chloride (Normal Saline -) 1,000 mls @ 50 mls/hr IV ASDIR [facility] Stop: 03/02/20 16:41 Last Admin: 03/01/20 17:12 Dose: 50 mls/hr Documented by: Sodium Chloride (Normal Saline -) 250 mls @ 3,000 mls/hr IV PRN PRN PRN Reason: Hypotension during Dialysis Stop: 03/02/20 17:45 Sodium Chloride (Normal Saline -) 250 mls @ 3,000 mls/hr IV PRN PRN PRN Reason: Hypotension during Dialysis Stop: 03/02/20 19:36 Heparin Sodium (Porcine) 25, (000 unit/ Sodium Chloride) 500 mls @ 20 mls/hr IV TITR [facility]; Protocol Last Admin: 03/02/20 11:43 Dose: 1,000 unit/hr, 20 mls/hr Documented by: Sodium Chloride (Normal Saline -) 250 mls @ 3,000 mls/hr IV PRN PRN PRN Reason: Hypotension during Dialysis Stop: 03/03/20 12:45 Insulin Aspart (Novolog Vial Sliding Scale -) 1 vial SQ ACHS [facility]; Protocol Last Admin: 03/02/20 06:48 Dose: Not Given Documented by: Lidocaine (Lidoderm Patch -) 1 patch TP DAILY [facility] Last Admin: 03/02/20 10:57 Dose: 1 patch Documented by: Metoprolol Succinate (Toprol Xl -) 50 mg PO DAILY [facility] Last Admin: 03/02/20 10:57 Dose: 50 mg Documented by: Miscellaneous (Lidoderm Patch Removal) 1 each MC DAILY@2200 [facility] Sodium Zirconium Cyclosilicate (Lokelma) 10 gm PO DAILY [facility] ASSESSMENT AND PLAN: 64 yo M PMH CAD (s/p CABG),DM, ESRD, HTN, HLD, Hep C presented to ED after fall (no LOC) # Elevated troponin, T-inversion concerned for NSTEMI had recent stress test trend troponin heparin drip plan for cath cardiology consult appreciated ESRD on HD Hyperkalemia HTN HLD Dm diabetic foot wound DVT ppx: Heparin
--- NOTE | 2020-03-02 13:08 | DS ---
Physical Exam: SUBJECTIVE: Patient seen and examined at bedside. pt is irritated and hungry. denies any chest pain or new sob. OBJECTIVE: Vital Signs Period Temp Pulse Resp BP Sys/Palafox Pulse Ox Last 24 Hr 97.5 F-97.8 F 71-92 15-18 92-185/42-75 94-99 PHYSICAL EXAM GENERAL: Awake, alert, and fully oriented, in no acute distress. HEAD: Normal with no signs of trauma. EARS, NOSE, THROAT: Moist mucous membranes. lesion on R tongue . NECK: Normal range of motion, supple, + hepatojugular LUNGS: Breath sounds equal, clear to auscultation bilaterally. No accessory muscle use. HEART: Regular rate and rhythm, normal S1 and S2 without murmur ABDOMEN: Soft, nontender, not distended, normoactive bowel sounds, no guarding, no rebound, no masses. LOWER EXTREMITIES: 2+ pitting edema b/l. 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8-10.2) 03/02/20 11:15 Eosinophils % 2.0 % (0-4.5) D 03/02/20 11:15 Basophils % 0.3 % (0-2.0) 03/02/20 11:15 Nucleated RBC % 0 % (0-0) 03/02/20 11:15 PT with INR 16.40 SEC (9.7-13.0) H 03/02/20 11:15 INR 1.39 (0.83-1.09) H 03/02/20 11:15 PTT (Actin FS) 39.5 SECONDS (25.2-36.5) H 03/02/20 11:15 Sodium 140 mmol/L (136-145) 03/01/20 23:02 Potassium 3.5 mmol/L (3.5-5.1) 03/01/20 23:02 Chloride 101 mmol/L (98-107) 03/01/20 23:02 Carbon Dioxide 30 mmol/L (21-32) 03/01/20 23:02 Anion Gap 9 MMOL/L (8-16) 03/01/20 23:02 BUN 25.1 mg/dL (7-18) H 03/01/20 23:02 Creatinine 3.2 mg/dL (0.55-1.3) H 03/01/20 23:02 Est GFR (CKD-EPI)AfAm 22.18 03/01/20 23:02 Est GFR (CKD-EPI)NonAf 19.13 03/01/20 23:02 POC Glucometer 120 UNITS (80-120) 03/02/20 06:45 Random Glucose 90 mg/dL (74-106) 03/01/20 23:02 Calcium 8.4 mg/dL (8.5-10.1) L 03/01/20 23:02 Total Bilirubin 1.0 mg/dL (0.2-1) 03/01/20 20:15 AST 89 U/L (15-37) H 03/01/20 20:15 ALT 81 U/L (13-61) H 03/01/20 20:15 Alkaline Phosphatase 87 U/L (45-117) 03/01/20 20:15 Creatine Kinase 155 U/L (26-308) 03/01/20 15:06 Creatine Kinase Index 10.9 % (0.0-5.0) H 03/01/20 15:06 CK-MB (CK-2) 16.9 ng/mL (0.5-3.6) H 03/01/20 15:06 Troponin I 5.72 ng/ml (0.00-0.05) H* 03/01/20 18:27 Total Protein 7.4 g/dl (6.4-8.2) 03/01/20 20:15 Albumin 3.5 g/dl (3.4-5.0) 03/01/20 20:15 COVID-19 ([facility]) Not detected (Not Detected) 03/01/20 18:27 HOSPITAL COURSE: Date of Admission:03/01/20 64 yo M PMH DM, CKD on HD MWF, HTN, HLD, Hep C presented to ED after fall. Pt states he did not feel right just prior to fall. he endorses hitting R knee and back. Pt is admitted for tropinemia, r/o ACS . pt had a head CT negative for intracranial bleed and AC was started . cardio consulted and pt agrees to transfer to [facility] for cardiac cath under Dr. Morris Fernandez. Pt had dialysis yesterday. Date of Discharge: 03/02/20 Discharge Summary Problems reviewed: Yes Reason For Visit: WEAKNESS END STAGE RENAL FAILURE ON DIALYSIS ACCID Current Active Problems Dehydration (Acute) Weakness (Acute) Wedge fracture of lumbar vertebra (Acute) Condition: Guarded - Instructions Diet, Activity, Other Instructions: You are being transferred to [facility] for cardiac cath under the care of Dr. Morris Fernandez Referrals: Nikolay Jones MD [Primary Care Provider] - Disposition: TRANSFER ACUTE CARE/OTHER HOSP - Home Medications Comprehensive Discharge Medication List: Ambulatory Orders Aspirin [ASA -] 81 mg PO DAILY 12/23/16 Atorvastatin Ca [Lipitor] 10 mg PO DAILY 07/24/17 Metoprolol Succinate [Toprol Xl] 50 mg PO DAILY 07/24/17 Lisinopril 2.5 mg PO DAILY 03/01/20 Tenofovir Disoproxil Fumarate [Viread -] 300 mg PO WEEKLY 03/01/20 ATTENDING PHYSICIAN STATEMENT I saw and evaluated the patient. I reviewed the resident's note and discussed the case with the resident. I agree with the resident's findings and plan as documented. SUBJECTIVE: OBJECTIVE: ASSESSMENT AND PLAN:
[2020-03-02 13:09] LABS: ALBUMIN 3.8 g/dl (3.4-5.0); BLOOD UREA NITROGEN 47.5 mg/dL (7-18); CALCIUM 8.8 mg/dL (8.5-10.1); CREATININE 6.2 mg/dL (0.55-1.3); MAGNESIUM 2.3 mg/dL (1.8-2.4); PHOSPHOROUS 5.6 mg/dL (2.5-4.9); POTASSIUM 5.5 mmol/L (3.5-5.1); TOT PROT 7.5 g/dl (6.4-8.2)
[2020-03-02 13:10] LABS: BILIRUBIN,TOTAL 0.9 mg/dL (0.2-1)
--- NOTE | 2020-03-02 13:14 | CON.CARD ---
Cardiology Consult (text) - Consultation Consultation Note: cc: fall hpi: 64 m hx esrd on hd, cad s/p cabg, dm, systolic chf here s/p fall. Reports mech fall, no loc. No cp sob palps dizzy loc pnd orthopnea le edema. After fall had pain in back , knee, arm so came to er. In ER trops 6s, treated as nstemi. pmh: per hpi psh:cabg social: no tob fam: no premature cad, scd ros: per hpi; all others nl medS: Home Medications Medication Instructions Recorded Aspirin [ASA -] 81 mg PO DAILY 12/23/16 Atorvastatin Ca [Lipitor] 10 mg PO DAILY 07/24/17 Metoprolol Succinate [Toprol Xl] 50 mg PO DAILY 07/24/17 Lisinopril 2.5 mg PO DAILY 03/01/20 Tenofovir Disoproxil Fumarate 300 mg PO WEEKLY 03/01/20 [Viread -] Vital Signs Period Temp Pulse Resp BP Sys/Palafox Pulse Ox Last 24 Hr 97.5 F-97.8 F 71-92 15-18 92-185/42-75 94-99 nad no jvd rrr s1s2 no mrg cta bl nl eff aao3 no le e/c/c abd nd nt pos bs no jaundice diaphoresis pos dp pt no carotid bruits Laboratory Last Values WBC 14.3 K/mm3 (4.0-10.0) H 03/02/20 11:15 RBC 3.95 M/mm3 (4.00-5.60) L 03/02/20 11:15 Hgb 12.3 GM/dL (11.7-16.9) 03/02/20 11:15 Hct 38.1 % (35.4-49) 03/02/20 11:15 MCV 96.3 fl (80-96) H 03/02/20 11:15 MCH 31.1 pg (25.7-33.7) 03/02/20 11:15 MCHC 32.3 g/dl (32.0-35.9) 03/02/20 11:15 RDW 14.5 % (11.9-15.9) 03/02/20 11:15 Plt Count 199 K/MM3 (134-434) 03/02/20 11:15 MPV 8.8 fl (7.5-11.1) 03/02/20 11:15 Absolute Neuts (auto) 11.4 K/mm3 (1.5-8.0) H 03/02/20 11:15 Neutrophils % 79.9 % (42.8-82.8) 03/02/20 11:15 Lymphocytes % 8.0 % (8-40) D 03/02/20 11:15 Monocytes % 9.8 % (3.8-10.2) 03/02/20 11:15 Eosinophils % 2.0 % (0-4.5) D 03/02/20 11:15 Basophils % 0.3 % (0-2.0) 03/02/20 11:15 Nucleated RBC % 0 % (0-0) 03/02/20 11:15 PT with INR 16.40 SEC (9.7-13.0) H 03/02/20 11:15 INR 1.39 (0.83-1.09) H 03/02/20 11:15 PTT (Actin FS) 39.5 SECONDS (25.2-36.5) H 03/02/20 11:15 Sodium 136 mmol/L (136-145) 03/02/20 11:15 Potassium 5.5 mmol/L (3.5-5.1) H 03/02/20 11:15 Chloride 99 mmol/L (98-107) 03/02/20 11:15 Carbon Dioxide 28 mmol/L (21-32) 03/02/20 11:15 Anion Gap 9 MMOL/L (8-16) 03/02/20 11:15 BUN 47.5 mg/dL (7-18) H 03/02/20 11:15 Creatinine 6.2 mg/dL (0.55-1.3) H 03/02/20 11:15 Est GFR (CKD-EPI)AfAm 9.97 03/02/20 11:15 Est GFR (CKD-EPI)NonAf 8.60 03/02/20 11:15 POC Glucometer 120 UNITS (80-120) 03/02/20 06:45 Random Glucose 117 mg/dL (74-106) H 03/02/20 11:15 Calcium 8.8 mg/dL (8.5-10.1) 03/02/20 11:15 Phosphorus 5.6 mg/dL (2.5-4.9) H 03/02/20 11:15 Magnesium 2.3 mg/dL (1.8-2.4) 03/02/20 11:15 Total Bilirubin 0.9 mg/dL (0.2-1) 03/02/20 11:15 AST 85 U/L (15-37) H 03/02/20 11:15 ALT 90 U/L (13-61) H 03/02/20 11:15 Alkaline Phosphatase 89 U/L (45-117) 03/02/20 11:15 Creatine Kinase 155 U/L (26-308) 03/01/20 15:06 Creatine Kinase Index 10.9 % (0.0-5.0) H 03/01/20 15:06 CK-MB (CK-2) 16.9 ng/mL (0.5-3.6) H 03/01/20 15:06 Troponin I 5.72 ng/ml (0.00-0.05) H* 03/01/20 18:27 Total Protein 7.5 g/dl (6.4-8.2) 03/02/20 11:15 Albumin 3.8 g/dl (3.4-5.0) 03/02/20 11:15 Triglycerides 112 mg/dL (0-150) 03/02/20 11:15 Cholesterol 158 mg/dL (50-200) 03/02/20 11:15 Total LDL Cholesterol 109 mg/dL (5-100) H 03/02/20 11:15 HDL Cholesterol 33 mg/dL (40-60) L 03/02/20 11:15 TSH 2.87 uIU/ml (0.358-3.74) D 03/02/20 11:15 COVID-19 ([facility]) Not detected (Not Detected) 03/01/20 18:27 ecg: sr old rbbb no ischemic changes cxr: no sig chf echo 02/2019: lvef 40-45, global hk, nl rv, mod mr a/p: 64 m hx esrd on hd, cad s/p cabg, dm, systolic chf here s/p fall. nstemi: -no cp/sob but trop elevated as well as ckmb. ECG w/o ischemic changes. Given his cad, findings are suspicious for nstemi. Would cont asa, plavix, hep gtt. D/w interventionalist, will transfer to [facility] for cath. esrd: -hd per renal cad: -as above -cont bb, statin chronic syst chf: -stable vol with HD -cont bb. rikki-i held due to hyperkalemia fall: -seems mechanical -plan as above -check echo
[2020-03-02] MEDS ORDERED: CLOPIDOGREL BISULFATE 75 MG TABLET (FP) PO SCH (13:30)
[2020-03-02] MEDS ORDERED: CLOPIDOGREL BISULFATE 75 MG TABLET (FP) ONE (13:38)
--- NOTE | 2020-03-02 13:51 | ECHO ---
Name: ELSIE JENSEN Exam:Adult Echocardiogram Study Date: 03/02/2020 12:13 PM Age: 64 yrs Reason For Study: R/O CHF Height: 68 in Weight: 220 lb BSA: 2.1 m2 MMode/2D Measurements & Calculations IVSd: 1.4 cm Ao root diam: 2.9 cm LVIDd: 4.2 cm LA dimension: 4.9 cm LVIDs: 3.7 cm LVPWd: 1.4 cm EDV(Teich): 80.1 ml LVOT diam: 2.0 cm ESV(Teich): 60.0 ml LAV (MOD-bp): 63.1 ml Doppler Measurements & Calculations MV E max mendel: 109.0 cm/sec Ao V2 max: 142.0 cm/sec MV A max mendel: 93.6 cm/sec Ao max P.1 mmHg MV E/A: 1.2 MV dec time: 0.12 sec RACHEL(V,D): 1.4 cm2 LV V1 max P.4 mmHg MR max mendel: 440.6 cm/sec LV V1 max: 59.2 cm/sec MR max P.8 mmHg TR max mendel: 240.4 cm/sec PA V2 max: 95.3 cm/sec TR max P.3 mmHg PA max P.6 mmHg Med Peak E' Mendel: 4.4 cm/sec PI Vmax: 160.0 cm/sec Med E/e': 25.0 Lat Peak E' Mendel: 5.5 cm/sec Lat E/e': 19.6 Left Ventricle The left ventricle is normal in size. Left ventricular systolic function is severely reduced. Ejectio n Fraction = 25-30%. There is severe global hypokinesis of the left ventricle. Right Ventricle The right ventricle is normal in size and function. Atria The left atrium is mildly dilated. Right atrial size is normal. Mitral Valve There is mild mitral regurgitation. Tricuspid Valve No tricuspid regurgitation. There was insufficient TR detected to calculate RV systolic pressure. Aortic Valve No hemodynamically significant valvular aortic stenosis. No aortic regurgitation is present. Pulmonic Valve Mild pulmonic valvular regurgitation. Great Vessels The aortic root is normal size. Pericardium/Pleura There is no pericardial effusion. Interpretation Summary Left ventricular systolic function is severely reduced. The right ventricle is normal in size and function. The left atrium is mildly dilated. There is mild mitral regurgitation. Mild pulmonic valvular regurgitation. MD Major Barrera 03/02/2020 01:50 PM
[2020-03-02 16:12] VITALS: TEMP 98
[2020-03-02 21:10] VITALS: BP 95/55; PULSE 72
[2020-03-02] MEDS ORDERED: LIDOCAINE PATCH REMOVAL MC SCH (22:00)
[2020-03-08 06:06] LABS: HBsAG CONFIRMATION Positive (.)
== END 2020-03-02 20:30 | disposition short-term general hospital (02) | DRG 280 ==
LOC: JER 10:57 → JERBED 17:44 → J4W 03-02 13:54
PROVIDERS: ATTEND Student in an Organized Health Care Education/Training Program
PROC: 5A1D70Z Performance of Urinary Filtration, Intermittent, Less than 6 Hours Per Day (ICD-10-PCS; principal; 2020-03-01)
DX: I21.4 Non-ST elevation (NSTEMI) myocardial infarction (principal); N18.6 End stage renal disease; I13.2 Hypertensive heart and chronic kidney disease with heart failure and with stage 5 chronic kidney disease, or end stage renal disease; I50.22 Chronic systolic (congestive) heart failure; B19.10 Unspecified viral hepatitis B without hepatic coma; L97.508 Non-pressure chronic ulcer of other part of unspecified foot with other specified severity; R55 Syncope and collapse; I25.10 Atherosclerotic heart disease of native coronary artery without angina pectoris; E13.621 Other specified diabetes mellitus with foot ulcer; E78.5 Hyperlipidemia, unspecified; D72.829 Elevated white blood cell count, unspecified; M25.521 Pain in right elbow; S32.000G Wedge compression fracture of unspecified lumbar vertebra, subsequent encounter for fracture with delayed healing; M54.5 Low back pain; J44.9 Chronic obstructive pulmonary disease, unspecified; E11.22 Type 2 diabetes mellitus with diabetic chronic kidney disease; E86.0 Dehydration; E87.5 Hyperkalemia; R53.1 Weakness; E11.51 Type 2 diabetes mellitus with diabetic peripheral angiopathy without gangrene; E66.9 Obesity, unspecified; I45.10 Unspecified right bundle-branch block; W18.39XA Other fall on same level, initial encounter; Y92.098 Other place in other non-institutional residence as the place of occurrence of the external cause; Z95.1 Presence of aortocoronary bypass graft; Z95.5 Presence of coronary angioplasty implant and graft; Z99.2 Dependence on renal dialysis; Z89.421 Acquired absence of other right toe(s); Z68.33 Body mass index [BMI] 33.0-33.9, adult
CPT/HCPCS: 36415; 70450-TC; 71045-TC-FY; 72050-TC-FY; 72070-TC-FY; 72100-TC-FY; 72170-TC-FY; 80048; 80053; 80061; 82550; 82553; 82962; 83036; 83721; 83735; 84100; 84443; 84484; 85025; 85610; 85730; 86803; 87040; 87340; 93005; 93010; 93306-TC; 99285-25; J1644; U0003

== ENCOUNTER 2020-06-22 09:38 | Inpatient (IN) | payer OTHER, MEDICARE ==
[2020-06-22 11:48] LABS: BASO % 0.7 % (0-2.0); EOS % 0.8 % (0-4.5); HEMATOCRIT 39.1 % (35.4-49); HEMOGLOBIN 12.6 GM/dL (11.7-16.9); LYMPH % 6.3 % (8-40); MCH 31.6 pg (25.7-33.7); MCHC 32.2 g/dl (32.0-35.9); MEAN CELL VOLUME 98.1 fl (80-96); MEAN PLT VOLUME 9.3 fl (7.5-11.1); MONO % 6.7 % (3.8-10.2); NEUT % 85.5 % (42.8-82.8); PLATELET COUNT 189 K/MM3 (134-434); RBC 3.98 M/mm3 (4.00-5.60); RDW 14.8 % (11.9-15.9); WHITE BLOOD COUNT 14.7 K/mm3 (4.0-10.0)
[2020-06-22 12:14] LABS: ALBUMIN 3.4 g/dl (3.4-5.0); BLOOD UREA NITROGEN 76.2 mg/dL (7-18); CALCIUM 9.2 mg/dL (8.5-10.1)
[2020-06-22 12:19] LABS: BILIRUBIN,TOTAL 0.9 mg/dL (0.2-1); TOT PROT 7.3 g/dl (6.4-8.2)
[2020-06-22 12:30] LABS: CREATININE 7.6 mg/dL (0.55-1.3)
[2020-06-22] MEDS ORDERED: PIPERACILLIN/TAZOB 4.5 GM 4.5 GM in DEXTROSE 5%-WATER 100 ML IVPB ONE (14:33)
[2020-06-22] MEDS ORDERED: PIPERACILLIN/TAZOB 4.5 GM 4.5 GM/100 ML BAG IVPB ONE (14:41)
[2020-06-22] MEDS ORDERED: VANCOMYCIN HCL 1,500 MG in DEXTROSE 5%-WATER - 500 ML IVPB ONE (15:00)
[2020-06-22] MEDS ORDERED: CEFEPIME 2 GM in DEXTROSE 5%-WATER 2 GM/100 ML BAG IVPB ONE (16:56)
[2020-06-22] MEDS ORDERED: CEFEPIME 2 GM/100 ML BAG IVPB ONE (17:29)
[2020-06-22] MEDS: INSULIN SLIDING SCALE (NOVOLOG) 1 VIAL SQ SCH ×2 (17:46→21:46)
[2020-06-22] MEDS ORDERED: HEPARIN NA (PORCINE) 5,000 UNITS/ML 1ML VIAL ONE (17:51)
[2020-06-22] MEDS ORDERED: INSULIN SLIDING SCALE (NOVOLOG) 1 VIAL SQ ONE (17:51)
[2020-06-22] MEDS ORDERED: HEPARIN NA (PORCINE) 5,000 UNITS/ML 1ML VIAL SQ SCH (18:00)
[2020-06-22 19:10] LABS: PHOSPHOROUS 5.8 mg/dL (2.5-4.9)
[2020-06-22] MEDS ORDERED: SODIUM ZIRCONIUM CYCLOSILICATE (LOKELMA) 10 GM PACKET PO ONE (20:01)
[2020-06-22] MEDS: HEPARIN NA (PORCINE) 5,000 UNITS/ML 1ML VIAL SQ SCH (21:47)
[2020-06-22 23:35] VITALS: BMI 33.4
[2020-06-23] MEDS: INSULIN SLIDING SCALE (NOVOLOG) 1 VIAL SQ SCH ×5 (06:47→21:57)
[2020-06-23] MEDS: HEPARIN NA (PORCINE) 5,000 UNITS/ML 1ML VIAL SQ SCH ×3 (06:58→21:56)
[2020-06-23] MEDS ORDERED: INSULIN (NOVOLOG) ASPART 100 UNITS/ML 10ML VIAL ONE ×2 (07:00→21:54)
[2020-06-23] MEDS ORDERED: DEXTROSE 5%-WATER - 50 ML IVPB ONE ×2 (11:54→17:06)
[2020-06-23] MEDS ORDERED: PIPERACILLIN/TAZOBACTAM 2.25 GM VIAL IVPB ONE ×2 (11:54→17:06)
[2020-06-23] MEDS: COLLAGENASE CLOSTRIDIUM HIST. 30 GRAMS TUBE TP SCH (12:26)
[2020-06-23] MEDS: PIPERACILLIN/TAZOB 2.25 GM 2.25 GM in DEXTROSE 5%-WATER - 50 ML IVPB SCH ×2 (12:26→18:45)
[2020-06-23 13:19] LABS: BASO % 0.5 % (0-2.0); EOS % 1.2 % (0-4.5); HEMATOCRIT 39.7 % (35.4-49); HEMOGLOBIN 12.7 GM/dL (11.7-16.9); MCH 31.5 pg (25.7-33.7); MEAN CELL VOLUME 98.4 fl (80-96); MEAN PLT VOLUME 9.2 fl (7.5-11.1); MONO % 5.5 % (3.8-10.2); NEUT % 85.8 % (42.8-82.8); PLATELET COUNT 172 K/MM3 (134-434); RBC 4.04 M/mm3 (4.00-5.60); WHITE BLOOD COUNT 12.9 K/mm3 (4.0-10.0)
[2020-06-23 13:41] LABS: ALBUMIN 3.1 g/dl (3.4-5.0); BLOOD UREA NITROGEN 85.6 mg/dL (7-18); CALCIUM 8.9 mg/dL (8.5-10.1); MAGNESIUM 2.1 mg/dL (1.8-2.4)
[2020-06-23 13:45] LABS: PHOSPHOROUS 7.1 mg/dL (2.5-4.9)
[2020-06-23 13:46] LABS: BILIRUBIN,TOTAL 0.7 mg/dL (0.2-1)
[2020-06-23] MEDS ORDERED: SODIUM CHLORIDE 250 ML IV PRN ×2 (14:01→14:02)
[2020-06-23 14:14] LABS: CREATININE 8.5 mg/dL (0.55-1.3)
[2020-06-23] MEDS: BENZOCAINE/MENTH/CETYLPYRD CL 1 EACH LOZENGE MM PRN (22:49)
[2020-06-23] MEDS: LIDOCAINE 5% TOPICAL PATCH TP SCH (22:49)
[2020-06-24] MEDS ORDERED: PIPERACILLIN/TAZOBACTAM 2.25 GM VIAL IVPB ONE ×3 (01:20→17:41)
[2020-06-24] MEDS ORDERED: DEXTROSE 5%-WATER - 50 ML IVPB ONE ×3 (01:21→17:41)
[2020-06-24] MEDS: PIPERACILLIN/TAZOB 2.25 GM 2.25 GM in DEXTROSE 5%-WATER - 50 ML IVPB SCH ×3 (01:23→17:52)
[2020-06-24] MEDS: HEPARIN NA (PORCINE) 5,000 UNITS/ML 1ML VIAL SQ SCH ×3 (05:41→22:31)
[2020-06-24] MEDS: INSULIN SLIDING SCALE (NOVOLOG) 1 VIAL SQ SCH ×4 (06:43→22:38)
[2020-06-24 09:37] LABS: HEMATOCRIT 37.2 % (35.4-49); HEMOGLOBIN 12.4 GM/dL (11.7-16.9); MCH 32.4 pg (25.7-33.7); MCHC 33.3 g/dl (32.0-35.9); MEAN CELL VOLUME 97.2 fl (80-96); MEAN PLT VOLUME 9.2 fl (7.5-11.1); PLATELET COUNT 173 K/MM3 (134-434); RBC 3.82 M/mm3 (4.00-5.60); RDW 14.5 % (11.9-15.9); WHITE BLOOD COUNT 14.7 K/mm3 (4.0-10.0)
[2020-06-24 10:02] LABS: CALCIUM 8.9 mg/dL (8.5-10.1)
[2020-06-24 10:03] LABS: BLOOD UREA NITROGEN 93.9 mg/dL (7-18)
[2020-06-24 10:06] LABS: PHOSPHOROUS 7.9 mg/dL (2.5-4.9)
[2020-06-24] MEDS ORDERED: INSULIN (NOVOLOG) ASPART 100 UNITS/ML 10ML VIAL ONE (11:22)
[2020-06-24] MEDS: SEVELAMER CARBONATE 800 MG TAB (FP) PO SCH ×2 (11:24→17:53)
[2020-06-24] MEDS: CLOPIDOGREL BISULFATE 75 MG TABLET (FP) PO SCH (11:24)
[2020-06-24] MEDS: ASPIRIN 81 MG CHEWABLE TABLETS PO SCH (11:25)
[2020-06-24] MEDS: CARVEDILOL 3.125 MG TABLET (FP) PO SCH ×2 (11:25→22:31)
[2020-06-24] MEDS: LIDOCAINE 5% TOPICAL PATCH TP SCH (11:26)
[2020-06-24] MEDS: COLLAGENASE CLOSTRIDIUM HIST. 30 GRAMS TUBE TP SCH (11:27)
[2020-06-24 11:37] LABS: ERYTHROCYTE SEDIMENTATION RATE 11 mm/hr (0-20)
[2020-06-24 12:05] LABS: CREATININE 9.6 mg/dL (0.55-1.3)
[2020-06-24] MEDS: LIDOCAINE PATCH REMOVAL MC SCH (13:04)
[2020-06-24] MEDS: BENZOCAINE/MENTH/CETYLPYRD CL 1 EACH LOZENGE MM PRN ×3 (13:05→22:32)
[2020-06-24] MEDS ORDERED: AMMONIUM LACTATE 12% LOTION 225 GM BOTTLE TP PRN (15:04)
[2020-06-24] MEDS: ATORVASTATIN CA 40 MG TABLET (FP) PO SCH (22:32)
[2020-06-25] MEDS ORDERED: PIPERACILLIN/TAZOBACTAM 2.25 GM VIAL IVPB ONE ×3 (02:04→17:43)
[2020-06-25] MEDS ORDERED: DEXTROSE 5%-WATER - 50 ML IVPB ONE ×3 (02:04→17:43)
[2020-06-25] MEDS: PIPERACILLIN/TAZOB 2.25 GM 2.25 GM in DEXTROSE 5%-WATER - 50 ML IVPB SCH ×3 (02:08→17:45)
[2020-06-25] MEDS: HEPARIN NA (PORCINE) 5,000 UNITS/ML 1ML VIAL SQ SCH ×3 (06:04→21:27)
[2020-06-25] MEDS: INSULIN SLIDING SCALE (NOVOLOG) 1 VIAL SQ SCH ×4 (07:01→21:37)
[2020-06-25] MEDS: CARVEDILOL 3.125 MG TABLET (FP) PO SCH ×2 (09:28→21:32)
[2020-06-25] MEDS: CLOPIDOGREL BISULFATE 75 MG TABLET (FP) PO SCH (09:29)
[2020-06-25] MEDS: LIDOCAINE 5% TOPICAL PATCH TP SCH (09:29)
[2020-06-25] MEDS: SEVELAMER CARBONATE 800 MG TAB (FP) PO SCH ×3 (09:29→17:45)
[2020-06-25] MEDS: ASPIRIN 81 MG CHEWABLE TABLETS PO SCH (09:29)
[2020-06-25] MEDS: LIDOCAINE PATCH REMOVAL MC SCH (09:30)
[2020-06-25] MEDS: COLLAGENASE CLOSTRIDIUM HIST. 30 GRAMS TUBE TP SCH (09:30)
[2020-06-25 13:15] LABS: BASO % 0.7 % (0-2.0); EOS % 1.4 % (0-4.5); HEMOGLOBIN 12.4 GM/dL (11.7-16.9); LYMPH % 7.5 % (8-40); MCH 31.9 pg (25.7-33.7); MCHC 32.7 g/dl (32.0-35.9); MEAN CELL VOLUME 97.5 fl (80-96); MEAN PLT VOLUME 9.4 fl (7.5-11.1); MONO % 7.3 % (3.8-10.2); NEUT % 83.1 % (42.8-82.8); PLATELET COUNT 170 K/MM3 (134-434); RDW 15.1 % (11.9-15.9); WHITE BLOOD COUNT 12.4 K/mm3 (4.0-10.0)
[2020-06-25 13:30] LABS: MAGNESIUM 2.2 mg/dL (1.8-2.4)
[2020-06-25 13:33] LABS: PHOSPHOROUS 7.1 mg/dL (2.5-4.9)
[2020-06-25] MEDS ORDERED: SODIUM CHLORIDE 250 ML IV PRN (15:26)
[2020-06-25] MEDS: ATORVASTATIN CA 40 MG TABLET (FP) PO SCH (21:27)
[2020-06-25] MEDS: BENZOCAINE/MENTH/CETYLPYRD CL 1 EACH LOZENGE MM PRN (21:28)
[2020-06-26] MEDS ORDERED: LOPERAMIDE HCL 2 MG CAPSULE PO ONE (01:34)
[2020-06-26] MEDS ORDERED: PIPERACILLIN/TAZOBACTAM 2.25 GM VIAL IVPB ONE ×3 (01:35→17:42)
[2020-06-26] MEDS ORDERED: DEXTROSE 5%-WATER - 50 ML IVPB ONE ×3 (01:36→17:42)
[2020-06-26] MEDS: PIPERACILLIN/TAZOB 2.25 GM 2.25 GM in DEXTROSE 5%-WATER - 50 ML IVPB SCH ×3 (01:43→17:49)
[2020-06-26] MEDS: HEPARIN NA (PORCINE) 5,000 UNITS/ML 1ML VIAL SQ SCH ×3 (06:50→21:42)
[2020-06-26] MEDS: INSULIN SLIDING SCALE (NOVOLOG) 1 VIAL SQ SCH ×4 (06:50→21:52)
[2020-06-26] MEDS: COLLAGENASE CLOSTRIDIUM HIST. 30 GRAMS TUBE TP SCH (08:00)
[2020-06-26 09:01] LABS: CALCIUM 8.4 mg/dL (8.5-10.1)
[2020-06-26 09:05] LABS: HEMATOCRIT 35.6 % (35.4-49); HEMOGLOBIN 11.7 GM/dL (11.7-16.9); MCH 31.9 pg (25.7-33.7); MCHC 32.9 g/dl (32.0-35.9); MEAN PLT VOLUME 9.6 fl (7.5-11.1); PLATELET COUNT 159 K/MM3 (134-434); RBC 3.67 M/mm3 (4.00-5.60); RDW 14.5 % (11.9-15.9); WHITE BLOOD COUNT 11.4 K/mm3 (4.0-10.0)
[2020-06-26 09:06] LABS: BLOOD UREA NITROGEN 65.4 mg/dL (7-18)
[2020-06-26] MEDS: SEVELAMER CARBONATE 800 MG TAB (FP) PO SCH ×3 (11:33→17:49)
[2020-06-26] MEDS: LIDOCAINE 5% TOPICAL PATCH TP SCH (12:27)
[2020-06-26] MEDS: LIDOCAINE PATCH REMOVAL MC SCH (12:38)
[2020-06-26] MEDS: ASPIRIN 81 MG CHEWABLE TABLETS PO SCH (13:19)
[2020-06-26] MEDS: CARVEDILOL 3.125 MG TABLET (FP) PO SCH ×2 (13:19→21:43)
[2020-06-26] MEDS: CLOPIDOGREL BISULFATE 75 MG TABLET (FP) PO SCH (13:20)
[2020-06-26] MEDS ORDERED: SODIUM CHLORIDE 250 ML IV PRN (14:00)
[2020-06-26] MEDS ORDERED: INSULIN (NOVOLOG) ASPART 100 UNITS/ML 10ML VIAL ONE (20:58)
[2020-06-26 21:06] LABS: HEP B CORE AB, TOT Positive (Negative)
[2020-06-26] MEDS: ATORVASTATIN CA 40 MG TABLET (FP) PO SCH (21:42)
[2020-06-26] MEDS: BENZOCAINE/MENTH/CETYLPYRD CL 1 EACH LOZENGE MM PRN (21:43)
[2020-06-27] MEDS ORDERED: DEXTROSE 5%-WATER - 50 ML IVPB ONE ×3 (02:06→17:30)
[2020-06-27] MEDS ORDERED: PIPERACILLIN/TAZOBACTAM 2.25 GM VIAL IVPB ONE ×3 (02:06→17:29)
[2020-06-27] MEDS: PIPERACILLIN/TAZOB 2.25 GM 2.25 GM in DEXTROSE 5%-WATER - 50 ML IVPB SCH ×3 (02:09→18:02)
[2020-06-27] MEDS: INSULIN SLIDING SCALE (NOVOLOG) 1 VIAL SQ SCH ×4 (06:27→21:40)
[2020-06-27] MEDS: HEPARIN NA (PORCINE) 5,000 UNITS/ML 1ML VIAL SQ SCH ×3 (06:27→21:33)
[2020-06-27 09:24] LABS: HEMATOCRIT 37.5 % (35.4-49); HEMOGLOBIN 12.3 GM/dL (11.7-16.9); MCH 31.6 pg (25.7-33.7); MCHC 32.7 g/dl (32.0-35.9); MEAN CELL VOLUME 96.6 fl (80-96); MEAN PLT VOLUME 9.6 fl (7.5-11.1); PLATELET COUNT 153 K/MM3 (134-434); RBC 3.88 M/mm3 (4.00-5.60); RDW 14.6 % (11.9-15.9); WHITE BLOOD COUNT 11.3 K/mm3 (4.0-10.0)
[2020-06-27 09:54] LABS: ALBUMIN 3.1 g/dl (3.4-5.0); BLOOD UREA NITROGEN 48.7 mg/dL (7-18)
[2020-06-27 09:55] LABS: CALCIUM 8.6 mg/dL (8.5-10.1)
[2020-06-27 10:02] LABS: PHOSPHOROUS 6.3 mg/dL (2.5-4.9)
[2020-06-27 10:03] LABS: TOT PROT 6.8 g/dl (6.4-8.2)
[2020-06-27] MEDS ORDERED: PT OWN MED DRAWER 7, Y5N ONE ×3 (10:43→17:58)
[2020-06-27] MEDS: CARVEDILOL 3.125 MG TABLET (FP) PO SCH ×2 (10:50→21:40)
[2020-06-27] MEDS: ASPIRIN 81 MG CHEWABLE TABLETS PO SCH (10:50)
[2020-06-27] MEDS: SEVELAMER CARBONATE 800 MG TAB (FP) PO SCH ×3 (10:51→18:02)
[2020-06-27] MEDS: CLOPIDOGREL BISULFATE 75 MG TABLET (FP) PO SCH (10:51)
[2020-06-27] MEDS: LIDOCAINE PATCH REMOVAL MC SCH (10:53)
[2020-06-27] MEDS: COLLAGENASE CLOSTRIDIUM HIST. 30 GRAMS TUBE TP SCH (10:54)
[2020-06-27] MEDS: LIDOCAINE 5% TOPICAL PATCH TP SCH (10:54)
[2020-06-27] MEDS ORDERED: INSULIN (NOVOLOG) ASPART 100 UNITS/ML 10ML VIAL ONE (17:31)
[2020-06-27] MEDS ORDERED: TRIMETHOBENZAMIDE HCL 200MG/2ML INJ IM ONE (17:32)
[2020-06-27] MEDS ORDERED: FAMOTIDINE 20 MG/50 ML IVPB 20 MG/50 ML MG IVPB ONE (19:06)
[2020-06-27] MEDS: ATORVASTATIN CA 40 MG TABLET (FP) PO SCH (21:33)
[2020-06-28] MEDS ORDERED: DEXTROSE 5%-WATER - 50 ML IVPB ONE ×3 (01:30→21:20)
[2020-06-28] MEDS ORDERED: PIPERACILLIN/TAZOBACTAM 2.25 GM VIAL IVPB ONE ×3 (01:30→21:20)
[2020-06-28] MEDS: PIPERACILLIN/TAZOB 2.25 GM 2.25 GM in DEXTROSE 5%-WATER - 50 ML IVPB SCH ×4 (01:34→21:58)
[2020-06-28] MEDS: HEPARIN NA (PORCINE) 5,000 UNITS/ML 1ML VIAL SQ SCH ×4 (05:59→22:28)
[2020-06-28] MEDS: INSULIN SLIDING SCALE (NOVOLOG) 1 VIAL SQ SCH ×4 (06:03→22:06)
[2020-06-28] MEDS: SEVELAMER CARBONATE 800 MG TAB (FP) PO SCH ×3 (09:42→18:26)
[2020-06-28] MEDS: ASPIRIN 81 MG CHEWABLE TABLETS PO SCH (09:42)
[2020-06-28] MEDS: CARVEDILOL 3.125 MG TABLET (FP) PO SCH ×3 (09:50→21:59)
[2020-06-28] MEDS: LIDOCAINE 5% TOPICAL PATCH TP SCH (10:02)
[2020-06-28] MEDS: CLOPIDOGREL BISULFATE 75 MG TABLET (FP) PO SCH (10:10)
[2020-06-28 11:34] LABS: BASO % 0.9 % (0-2.0); EOS % 0.5 % (0-4.5); HEMATOCRIT 39.8 % (35.4-49); LYMPH % 7.3 % (8-40); MCH 31.8 pg (25.7-33.7); MCHC 32.6 g/dl (32.0-35.9); MEAN CELL VOLUME 97.5 fl (80-96); MEAN PLT VOLUME 9.3 fl (7.5-11.1); MONO % 6.1 % (3.8-10.2); NEUT % 85.2 % (42.8-82.8); PLATELET COUNT 154 K/MM3 (134-434); RBC 4.09 M/mm3 (4.00-5.60); WHITE BLOOD COUNT 12.6 K/mm3 (4.0-10.0)
[2020-06-28 12:07] LABS: BLOOD UREA NITROGEN 37.6 mg/dL (7-18); CALCIUM 9.1 mg/dL (8.5-10.1)
[2020-06-28 12:08] LABS: MAGNESIUM 2.3 mg/dL (1.8-2.4)
[2020-06-28 12:11] LABS: CREATININE 6.6 mg/dL (0.55-1.3)
[2020-06-28 12:12] LABS: PHOSPHOROUS 6.6 mg/dL (2.5-4.9)
[2020-06-28] MEDS: COLLAGENASE CLOSTRIDIUM HIST. 30 GRAMS TUBE TP SCH (12:48)
[2020-06-28] MEDS ORDERED: LIDOCAINE HCL 1%, 10 MG/ML (20ML VIAL) ONE (13:14)
[2020-06-28] MEDS ORDERED: HEPARIN NA (PORCINE) 5,000 UNITS/ML 1ML VIAL ONE ×2 (13:14→16:23)
[2020-06-28] MEDS: LIDOCAINE PATCH REMOVAL MC SCH (14:32)
[2020-06-28] MEDS ORDERED: PROPOFOL 20 ML ONE ×2 (15:34→16:37)
[2020-06-28] MEDS ORDERED: ceFAZolin SODIUM 1 GM VIAL IVPB ONE (15:40)
[2020-06-28] MEDS ORDERED: LIDOCAINE HCL 1%, 10 MG/ML (20ML VIAL) NR ONE ×2 (15:45)
[2020-06-28] MEDS ORDERED: ceFAZolin SODIUM 1 GM VIAL ONE ×2 (15:52)
[2020-06-28] MEDS ORDERED: ONDANSETRON 4 MG/2 ML VIAL IVPUSH PRN (18:01)
[2020-06-28] MEDS ORDERED: oxyCODONE HCL 5 MG TABLET PO PRN (18:01)
[2020-06-28] MEDS ORDERED: SODIUM CHLORIDE 1,000 ML IV SCH (18:15)
[2020-06-28] MEDS ORDERED: AMMONIUM LACTATE 12% LOTION 225 GM BOTTLE TP PRN (18:29)
[2020-06-28] MEDS ORDERED: BENZOCAINE/MENTH/CETYLPYRD CL 1 EACH LOZENGE MM PRN (18:29)
[2020-06-28] MEDS ORDERED: LIDOCAINE PATCH REMOVAL MC SCH ×2 (22:00)
[2020-06-28] MEDS ORDERED: ATORVASTATIN CA 40 MG TABLET (FP) PO SCH (22:00)
[2020-06-28 23:46] VITALS: TEMP 98.2
[2020-06-29] MEDS ORDERED: SODIUM CHLORIDE 250 ML IV PRN (00:07)
[2020-06-29] MEDS ORDERED: PIPERACILLIN/TAZOBACTAM 2.25 GM VIAL IVPB ONE ×2 (00:59→13:04)
[2020-06-29] MEDS ORDERED: DEXTROSE 5%-WATER - 50 ML IVPB ONE ×2 (00:59→13:05)
[2020-06-29] MEDS: ACETAMINOPHEN 325 MG TABLET (FP) PO PRN ×2 (01:03→08:39)
[2020-06-29] MEDS ORDERED: ACETAMINOPHEN 1000 MG/100 ML BAG IVPB ONE (02:00)
[2020-06-29] MEDS: PIPERACILLIN/TAZOB 2.25 GM 2.25 GM in DEXTROSE 5%-WATER - 50 ML IVPB SCH ×2 (02:15→13:11)
[2020-06-29] MEDS ORDERED: PT OWN MED DRAWER 7, Y5N ONE (03:52)
[2020-06-29] MEDS: HEPARIN NA (PORCINE) 5,000 UNITS/ML 1ML VIAL SQ SCH ×2 (06:09→13:29)
[2020-06-29] MEDS: INSULIN SLIDING SCALE (NOVOLOG) 1 VIAL SQ SCH ×2 (06:48→13:11)
[2020-06-29] MEDS: SEVELAMER CARBONATE 800 MG TAB (FP) PO SCH ×2 (09:37→13:12)
[2020-06-29] MEDS: CARVEDILOL 3.125 MG TABLET (FP) PO SCH (09:39)
[2020-06-29] MEDS ORDERED: COLLAGENASE CLOSTRIDIUM HIST. 30 GRAMS TUBE TP SCH (10:00)
[2020-06-29] MEDS ORDERED: LIDOCAINE 5% TOPICAL PATCH TP SCH (10:00)
[2020-06-29] MEDS ORDERED: ASPIRIN 81 MG CHEWABLE TABLETS PO SCH (10:00)
[2020-06-29] MEDS ORDERED: CLOPIDOGREL BISULFATE 75 MG TABLET (FP) PO SCH (10:00)
[2020-06-29] MEDS ORDERED: LOPERAMIDE HCL 2 MG CAPSULE PO ONE (11:15)
[2020-06-29 15:01] VITALS: BP 122/60; PULSE 98
== END 2020-06-29 17:00 | disposition home or self-care (01) | DRG 270 ==
LOC: JER 09:38 → JERBED 12:59 → J8W 18:24
PROVIDERS: ATTEND Internal Medicine
PROC: 5A1D70Z Performance of Urinary Filtration, Intermittent, Less than 6 Hours Per Day (ICD-10-PCS; 2020-06-24)
PROC: 5A1D70Z Performance of Urinary Filtration, Intermittent, Less than 6 Hours Per Day (ICD-10-PCS; 2020-06-26)
PROC: 5A1D70Z Performance of Urinary Filtration, Intermittent, Less than 6 Hours Per Day (ICD-10-PCS; 2020-06-27)
PROC: 04CM3ZZ Extirpation of Matter from Right Popliteal Artery, Percutaneous Approach (ICD-10-PCS; principal; 2020-06-28)
PROC: 047M3DZ Dilation of Right Popliteal Artery with Intraluminal Device, Percutaneous Approach (ICD-10-PCS; 2020-06-28)
PROC: 047P3ZZ Dilation of Right Anterior Tibial Artery, Percutaneous Approach (ICD-10-PCS; 2020-06-28)
PROC: B40DYZZ Plain Radiography of Aorta and Bilateral Lower Extremity Arteries using Other Contrast (ICD-10-PCS; 2020-06-28)
PROC: B40FYZZ Plain Radiography of Right Lower Extremity Arteries using Other Contrast (ICD-10-PCS; 2020-06-28)
PROC: 5A1D70Z Performance of Urinary Filtration, Intermittent, Less than 6 Hours Per Day (ICD-10-PCS; 2020-06-29)
DX: E11.51 Type 2 diabetes mellitus with diabetic peripheral angiopathy without gangrene (principal); N18.6 End stage renal disease; L97.518 Non-pressure chronic ulcer of other part of right foot with other specified severity; I12.0 Hypertensive chronic kidney disease with stage 5 chronic kidney disease or end stage renal disease; M86.8X7 Other osteomyelitis, ankle and foot; E11.69 Type 2 diabetes mellitus with other specified complication; E11.621 Type 2 diabetes mellitus with foot ulcer; I77.1 Stricture of artery; I25.10 Atherosclerotic heart disease of native coronary artery without angina pectoris; E11.42 Type 2 diabetes mellitus with diabetic polyneuropathy; E78.5 Hyperlipidemia, unspecified; E11.22 Type 2 diabetes mellitus with diabetic chronic kidney disease; F39 Unspecified mood [affective] disorder; M54.5 Low back pain; R19.7 Diarrhea, unspecified; B19.20 Unspecified viral hepatitis C without hepatic coma; S92.211D Displaced fracture of cuboid bone of right foot, subsequent encounter for fracture with routine healing; E87.5 Hyperkalemia; Z99.2 Dependence on renal dialysis; Z89.431 Acquired absence of right foot; Z89.421 Acquired absence of other right toe(s)
CPT/HCPCS: 36415; 71045-TC-FY; 73630-TC-RT-FY; 75635-TC; 76000-TC-FY; 80048; 80053; 82962; 83036; 83735; 84100; 85025; 85027; 85651; 86140; 86704; 86706; 86707; 86708; 86709; 86803; 86850; 86900; 86901; 87324; 87340; 87449; 93005; 93010; 94760; 97116-GP; 97161-GP; 99285-25; C9803; J0131; J1644; Q9967; U0003

== ENCOUNTER 2020-06-29 16:43 | Inpatient (IN) | payer OTHER, MEDICARE ==
[2020-06-29 19:25] LABS: BASO % 0.3 % (0-2.0); EOS % 0.2 % (0-4.5); HEMATOCRIT 37.9 % (35.4-49); HEMOGLOBIN 12.6 GM/dL (11.7-16.9); LYMPH % 5.6 % (8-40); MCH 32.4 pg (25.7-33.7); MCHC 33.1 g/dl (32.0-35.9); MEAN CELL VOLUME 97.8 fl (80-96); MEAN PLT VOLUME 9.7 fl (7.5-11.1); MONO % 5.8 % (3.8-10.2); NEUT % 88.1 % (42.8-82.8); PLATELET COUNT 138 K/MM3 (134-434); RBC 3.88 M/mm3 (4.00-5.60); RDW 14.9 % (11.9-15.9); WHITE BLOOD COUNT 16.1 K/mm3 (4.0-10.0)
[2020-06-29 19:46] LABS: POTASSIUM 4.4 mmol/L (3.5-5.1)
[2020-06-29 19:48] LABS: ALBUMIN 3.2 g/dl (3.4-5.0); BLOOD UREA NITROGEN 33.1 mg/dL (7-18); CALCIUM 9.1 mg/dL (8.5-10.1); MAGNESIUM 2.3 mg/dL (1.8-2.4)
[2020-06-29 19:51] LABS: CREATININE 6.5 mg/dL (0.55-1.3); PHOSPHOROUS 6.1 mg/dL (2.5-4.9)
[2020-06-29 19:53] LABS: BILIRUBIN,TOTAL 1.1 mg/dL (0.2-1); TOT PROT 6.9 g/dl (6.4-8.2)
[2020-06-29] MEDS ORDERED: IBUPROFEN 400 MG TABLET (FP) PO ONE (20:00)
[2020-06-29] MEDS ORDERED: IBUPROFEN 600 MG TABLET (FP) PO ONE (20:20)
[2020-06-29] MEDS ORDERED: NITROGLYCERIN SUBLINGUAL 1/150 0.4 MG TAB SL SCH (23:45)
[2020-06-30] MEDS ORDERED: LOPERAMIDE HCL 1 MG/5 ML UNIT DOSE CUP PO ONE (03:23)
[2020-06-30] MEDS ORDERED: LOPERAMIDE HCL 2 MG CAPSULE ONE ×2 (03:37→18:04)
[2020-06-30] MEDS ORDERED: HEPARIN NA (PORCINE) 5,000 UNITS/ML 1ML VIAL SQ SCH (06:00)
[2020-06-30] MEDS: INSULIN SLIDING SCALE (NOVOLOG) 1 VIAL SQ SCH ×4 (07:24→23:24)
[2020-06-30] MEDS: SEVELAMER CARBONATE 800 MG TAB (FP) PO SCH ×3 (09:00→17:50)
[2020-06-30] MEDS: ASPIRIN 81 MG CHEWABLE TABLETS PO SCH (09:30)
[2020-06-30] MEDS ORDERED: PT OWN MED DRAWER 7, Y5N ONE (09:32)
[2020-06-30] MEDS ORDERED: ASPIRIN 81 MG CHEWABLE TABLETS ONE (09:34)
[2020-06-30] MEDS ORDERED: CLOPIDOGREL BISULFATE 75 MG TABLET (FP) ONE (09:34)
[2020-06-30] MEDS ORDERED: CARVEDILOL 3.125 MG TABLET (FP) ONE (09:34)
[2020-06-30] MEDS: CARVEDILOL 3.125 MG TABLET (FP) PO SCH ×2 (09:56→23:12)
[2020-06-30] MEDS: CLOPIDOGREL BISULFATE 75 MG TABLET (FP) PO SCH (09:56)
[2020-06-30] MEDS: MIDODRINE HCL 2.5 MG TABLET PO SCH (09:57)
[2020-06-30] MEDS ORDERED: NATEGLINIDE 60 MG PO SCH (10:00)
[2020-06-30] MEDS ORDERED: TENOFOVIR DISOPROXIL FUMARATE 300 MG TABLET PO ONE (10:05)
[2020-06-30] MEDS ORDERED: cefTAZidime PENTAHYDRATE 1 GM/50ML PRE-DOCKED (RESTRICTED TO ID) IVPB ONE (16:36)
[2020-06-30] MEDS ORDERED: LOPERAMIDE HCL 2 MG CAPSULE PO ONE (17:31)
[2020-07-01 07:40] VITALS: BMI 33.7
[2020-07-01] MEDS: INSULIN SLIDING SCALE (NOVOLOG) 1 VIAL SQ SCH ×4 (07:41→22:24)
[2020-07-01] MEDS ORDERED: PT OWN MED DRAWER 7, Y5N ONE ×3 (09:26→13:12)
[2020-07-01] MEDS: SEVELAMER CARBONATE 800 MG TAB (FP) PO SCH ×3 (09:30→18:15)
[2020-07-01] MEDS: CLOPIDOGREL BISULFATE 75 MG TABLET (FP) PO SCH (09:31)
[2020-07-01] MEDS: CARVEDILOL 3.125 MG TABLET (FP) PO SCH ×2 (09:31→22:24)
[2020-07-01] MEDS: MIDODRINE HCL 2.5 MG TABLET PO SCH (09:31)
[2020-07-01] MEDS: ASPIRIN 81 MG CHEWABLE TABLETS PO SCH (09:31)
[2020-07-01] MEDS: COLLAGENASE CLOSTRIDIUM HIST. 30 GRAMS TUBE TP SCH (09:31)
[2020-07-01 09:50] LABS: BASO % 0.3 % (0-2.0); EOS % 0.8 % (0-4.5); HEMATOCRIT 40.6 % (35.4-49); HEMOGLOBIN 13.3 GM/dL (11.7-16.9); LYMPH % 7.8 % (8-40); MCH 32.3 pg (25.7-33.7); MCHC 32.8 g/dl (32.0-35.9); MEAN CELL VOLUME 98.5 fl (80-96); MEAN PLT VOLUME 9.7 fl (7.5-11.1); MONO % 5.4 % (3.8-10.2); NEUT % 85.7 % (42.8-82.8); PLATELET COUNT 123 K/MM3 (134-434); RBC 4.12 M/mm3 (4.00-5.60)
[2020-07-01 09:54] LABS: INR 1.91 (0.83-1.09); PROTHROMBIN TIME (PATIENT) 23.1 SEC (9.7-13.0)
[2020-07-01 10:12] LABS: POTASSIUM 4.7 mmol/L (3.5-5.1)
[2020-07-01 10:18] LABS: ALBUMIN 3.3 g/dl (3.4-5.0); BLOOD UREA NITROGEN 50.9 mg/dL (7-18); MAGNESIUM 2.3 mg/dL (1.8-2.4)
[2020-07-01 10:21] LABS: PHOSPHOROUS 7.2 mg/dL (2.5-4.9)
[2020-07-01 10:23] LABS: BILIRUBIN,TOTAL 1.5 mg/dL (0.2-1); TOT PROT 7.2 g/dl (6.4-8.2)
[2020-07-01] MEDS ORDERED: TENOFOVIR DISOPROXIL FUMARATE 300 MG TABLET PO ONE (10:53)
[2020-07-01 11:06] LABS: CREATININE 8.1 mg/dL (0.55-1.3)
[2020-07-01] MEDS ORDERED: LOPERAMIDE HCL 2 MG CAPSULE PO ONE (11:45)
[2020-07-01] MEDS ORDERED: DEXTROSE 5%-WATER - 50 ML IVPB ONE (18:12)
[2020-07-01] MEDS ORDERED: cefTAZidime PENTAHYDRATE 1 GM VIAL (RESTRICTED TO ID) ONE (18:12)
[2020-07-01] MEDS: CEFTAZIDIME PENTAHYDRATE 1 GM in DEXTROSE 5%-WATER - 50 ML IVPB ONE ×2 (18:14→19:37)
[2020-07-02] MEDS: INSULIN SLIDING SCALE (NOVOLOG) 1 VIAL SQ SCH ×4 (06:20→22:58)
[2020-07-02] MEDS: MIDODRINE HCL 2.5 MG TABLET PO SCH (09:42)
[2020-07-02] MEDS ORDERED: CEFTAZIDIME PENTAHYDRATE 1 GM in DEXTROSE 5%-WATER - 50 ML IVPB ONE (10:00)
[2020-07-02] MEDS ORDERED: cefTAZidime PENTAHYDRATE 1 GM/10 ML SYRINGE (RESTRICTED TO ID) IVPUSH ONE (10:00)
[2020-07-02] MEDS ORDERED: TENOFOVIR DISOPROXIL FUMARATE 300 MG TABLET PO ONE (12:00)
[2020-07-02] MEDS: SEVELAMER CARBONATE 800 MG TAB (FP) PO SCH ×2 (14:40→18:35)
[2020-07-02] MEDS ORDERED: MORPHINE SULFATE 2 MG/ML VIAL IVPUSH ONE (17:24)
[2020-07-02] MEDS: CARVEDILOL 3.125 MG TABLET (FP) PO SCH ×2 (17:24→22:56)
[2020-07-02] MEDS: COLLAGENASE CLOSTRIDIUM HIST. 30 GRAMS TUBE TP SCH (17:25)
[2020-07-02] MEDS ORDERED: SODIUM CHLORIDE 250 ML IV PRN (18:22)
[2020-07-02 18:26] LABS: HEMOGLOBIN 12.1 GM/dL (11.7-16.9)
[2020-07-02 18:34] LABS: INR 1.99 (0.83-1.09); PROTHROMBIN TIME (PATIENT) 23.6 SEC (9.7-13.0)
[2020-07-02 18:46] LABS: POTASSIUM 4.7 mmol/L (3.5-5.1)
[2020-07-02 18:49] LABS: ALBUMIN 2.8 g/dl (3.4-5.0); BLOOD UREA NITROGEN 63.8 mg/dL (7-18)
[2020-07-02 18:52] LABS: BILIRUBIN,DIRECT 0.6 mg/dL (0.0-0.2)
[2020-07-02 18:54] LABS: TOT PROT 6.2 g/dl (6.4-8.2)
[2020-07-02 19:04] LABS: HEMATOCRIT 36.6 % (35.4-49); MCH 32.2 pg (25.7-33.7); MCHC 32.9 g/dl (32.0-35.9); MEAN CELL VOLUME 97.7 fl (80-96); MEAN PLT VOLUME 9.9 fl (7.5-11.1); PLATELET COUNT 108 K/MM3 (134-434); RBC 3.75 M/mm3 (4.00-5.60); WHITE BLOOD COUNT 11.4 K/mm3 (4.0-10.0)
[2020-07-02] MEDS ORDERED: MELATONIN 5 MG TABLETS PO ONE (22:00)
[2020-07-02] MEDS ORDERED: PT OWN MED DRAWER 7, Y5N ONE (22:46)
[2020-07-02] MEDS ORDERED: cefTAZidime PENTAHYDRATE 1 GM VIAL (RESTRICTED TO ID) ONE (22:53)
[2020-07-02] MEDS ORDERED: DEXTROSE 5%-WATER - 50 ML IVPB ONE (22:53)
[2020-07-02] MEDS: ASPIRIN 81 MG CHEWABLE TABLETS PO SCH (22:54)
[2020-07-02] MEDS: CEFTAZIDIME PENTAHYDRATE 1 GM in DEXTROSE 5%-WATER - 50 ML IVPB SCH (22:55)
[2020-07-02] MEDS: TENOFOVIR DISOPROXIL FUMARATE 300 MG TABLET PO SCH (22:55)
[2020-07-02] MEDS: CLOPIDOGREL BISULFATE 75 MG TABLET (FP) PO SCH (22:55)
[2020-07-03] MEDS: INSULIN SLIDING SCALE (NOVOLOG) 1 VIAL SQ SCH ×4 (06:02→21:57)
[2020-07-03] MEDS: SEVELAMER CARBONATE 800 MG TAB (FP) PO SCH ×3 (08:54→17:12)
[2020-07-03] MEDS: CLOPIDOGREL BISULFATE 75 MG TABLET (FP) PO SCH (09:02)
[2020-07-03] MEDS: CARVEDILOL 3.125 MG TABLET (FP) PO SCH ×2 (09:02→21:57)
[2020-07-03] MEDS: COLLAGENASE CLOSTRIDIUM HIST. 30 GRAMS TUBE TP SCH (09:02)
[2020-07-03] MEDS: MIDODRINE HCL 2.5 MG TABLET PO SCH (09:02)
[2020-07-03] MEDS: ASPIRIN 81 MG CHEWABLE TABLETS PO SCH (09:02)
[2020-07-03] MEDS: TENOFOVIR DISOPROXIL FUMARATE 300 MG TABLET PO SCH ×2 (09:03→10:38)
[2020-07-03 09:30] LABS: POTASSIUM 4.1 mmol/L (3.5-5.1)
[2020-07-03 09:32] LABS: BLOOD UREA NITROGEN 39.5 mg/dL (7-18); CALCIUM 8.3 mg/dL (8.5-10.1)
[2020-07-03 09:33] LABS: MAGNESIUM 2.2 mg/dL (1.8-2.4)
[2020-07-03 09:34] LABS: BILIRUBIN,DIRECT 0.7 mg/dL (0.0-0.2)
[2020-07-03 09:36] LABS: BILIRUBIN,TOTAL 1.4 mg/dL (0.2-1); CREATININE 7.3 mg/dL (0.55-1.3); PHOSPHOROUS 5.6 mg/dL (2.5-4.9); TOT PROT 6.6 g/dl (6.4-8.2)
[2020-07-03 09:37] LABS: BILIRUBIN,TOTAL 1.4 mg/dL (0.2-1); TOT PROT 6.7 g/dl (6.4-8.2)
[2020-07-03 09:45] LABS: BASO % 0.4 % (0-2.0); EOS % 1.8 % (0-4.5); HEMATOCRIT 41.6 % (35.4-49); HEMOGLOBIN 13.3 GM/dL (11.7-16.9); LYMPH % 6.6 % (8-40); MCHC 32.1 g/dl (32.0-35.9); MEAN CELL VOLUME 99.7 fl (80-96); MEAN PLT VOLUME 9.7 fl (7.5-11.1); MONO % 7.1 % (3.8-10.2); NEUT % 84.1 % (42.8-82.8); PLATELET COUNT 99 K/MM3 (134-434); RBC 4.17 M/mm3 (4.00-5.60); RDW 15.1 % (11.9-15.9); WHITE BLOOD COUNT 12.8 K/mm3 (4.0-10.0)
[2020-07-03 12:40] LABS: INR 1.78 (0.83-1.09); PROTHROMBIN TIME (PATIENT) 21.5 SEC (9.7-13.0)
[2020-07-03] MEDS ORDERED: SODIUM CHLORIDE 250 ML IV PRN (13:11)
[2020-07-03] MEDS ORDERED: DEXTROSE 5%-WATER - 50 ML IVPB ONE (16:54)
[2020-07-03] MEDS ORDERED: cefTAZidime PENTAHYDRATE 1 GM VIAL (RESTRICTED TO ID) ONE (16:54)
[2020-07-03] MEDS: CEFTAZIDIME PENTAHYDRATE 1 GM in DEXTROSE 5%-WATER - 50 ML IVPB SCH (17:12)
[2020-07-03 20:07] LABS: HEP B CORE AB, TOT Positive (Negative)
[2020-07-03] MEDS ORDERED: LOPERAMIDE HCL 1 MG/5 ML UNIT DOSE CUP PO ONE (20:14)
[2020-07-03] MEDS ORDERED: LOPERAMIDE HCL 1 MG/7.5 ML LIQUID PO ONE (21:00)
[2020-07-03] MEDS ORDERED: PT OWN MED DRAWER 7, Y5N ONE (21:36)
[2020-07-04] MEDS ORDERED: morphine CARPU-JECT 4 MG/1 ML DISP.SYRIN IVPUSH ONE (00:22)
[2020-07-04] MEDS ORDERED: ACETAMINOPHEN 325 MG TABLET (FP) PO ONE (00:27)
[2020-07-04] MEDS ORDERED: MORPHINE SULFATE 2 MG/ML VIAL IVPUSH ONE (02:00)
[2020-07-04] MEDS: INSULIN SLIDING SCALE (NOVOLOG) 1 VIAL SQ SCH ×4 (06:46→22:15)
[2020-07-04] MEDS: HEPARIN NA (PORCINE) 5,000 UNITS/ML 1ML VIAL SQ SCH ×3 (06:48→22:15)
[2020-07-04 08:28] LABS: BASO % 0.7 % (0-2.0); EOS % 2.3 % (0-4.5); HEMATOCRIT 36.8 % (35.4-49); HEMOGLOBIN 12.3 GM/dL (11.7-16.9); LYMPH % 8.5 % (8-40); MCH 32.8 pg (25.7-33.7); MCHC 33.3 g/dl (32.0-35.9); MEAN CELL VOLUME 98.4 fl (80-96); MONO % 8.6 % (3.8-10.2); NEUT % 79.9 % (42.8-82.8); PLATELET COUNT 105 K/MM3 (134-434); RBC 3.74 M/mm3 (4.00-5.60); WHITE BLOOD COUNT 11.9 K/mm3 (4.0-10.0)
[2020-07-04 08:32] LABS: INR 1.57 (0.83-1.09); PROTHROMBIN TIME (PATIENT) 18.8 SEC (9.7-13.0)
[2020-07-04 08:33] LABS: POTASSIUM 4.4 mmol/L (3.5-5.1)
[2020-07-04 08:45] LABS: ALBUMIN 2.8 g/dl (3.4-5.0); MAGNESIUM 2.2 mg/dL (1.8-2.4)
[2020-07-04 08:48] LABS: PHOSPHOROUS 6.1 mg/dL (2.5-4.9)
[2020-07-04 08:49] LABS: BILIRUBIN,TOTAL 1.1 mg/dL (0.2-1); TOT PROT 6.3 g/dl (6.4-8.2)
[2020-07-04 09:06] LABS: CREATININE 8.4 mg/dL (0.55-1.3)
[2020-07-04 09:47] VITALS: TEMP 98.2
[2020-07-04] MEDS ORDERED: PANTOPRAZOLE 20 MG TABLET PO SCH (10:15)
[2020-07-04] MEDS: CARVEDILOL 3.125 MG TABLET (FP) PO SCH ×2 (10:22→22:15)
[2020-07-04] MEDS: MIDODRINE HCL 2.5 MG TABLET PO SCH (10:22)
[2020-07-04] MEDS: SEVELAMER CARBONATE 800 MG TAB (FP) PO SCH ×3 (11:22→17:10)
[2020-07-04] MEDS: ASPIRIN 81 MG CHEWABLE TABLETS PO SCH (12:33)
[2020-07-04] MEDS: CLOPIDOGREL BISULFATE 75 MG TABLET (FP) PO SCH (12:33)
[2020-07-04] MEDS: COLLAGENASE CLOSTRIDIUM HIST. 30 GRAMS TUBE TP SCH (12:35)
[2020-07-04] MEDS ORDERED: cefTAZidime PENTAHYDRATE 1 GM VIAL (RESTRICTED TO ID) ONE (16:58)
[2020-07-04] MEDS ORDERED: DEXTROSE 5%-WATER - 50 ML IVPB ONE (16:59)
[2020-07-04] MEDS: CEFTAZIDIME PENTAHYDRATE 1 GM in DEXTROSE 5%-WATER - 50 ML IVPB SCH (17:10)
[2020-07-05] MEDS ORDERED: LOPERAMIDE HCL 1 MG/5 ML UNIT DOSE CUP PO ONE (03:27)
[2020-07-05] MEDS ORDERED: LOPERAMIDE HCL 1 MG/7.5 ML LIQUID PO ONE (03:45)
[2020-07-05] MEDS: INSULIN SLIDING SCALE (NOVOLOG) 1 VIAL SQ SCH ×2 (06:57→11:24)
[2020-07-05] MEDS: HEPARIN NA (PORCINE) 5,000 UNITS/ML 1ML VIAL SQ SCH (06:57)
[2020-07-05] MEDS ORDERED: PT OWN MED DRAWER 7, Y5N ONE (09:55)
[2020-07-05] MEDS: ASPIRIN 81 MG CHEWABLE TABLETS PO SCH (10:01)
[2020-07-05] MEDS: CARVEDILOL 3.125 MG TABLET (FP) PO SCH ×2 (10:01→10:33)
[2020-07-05] MEDS: CLOPIDOGREL BISULFATE 75 MG TABLET (FP) PO SCH (10:01)
[2020-07-05] MEDS: SEVELAMER CARBONATE 800 MG TAB (FP) PO SCH ×3 (10:01→12:24)
[2020-07-05] MEDS: MIDODRINE HCL 2.5 MG TABLET PO SCH (10:09)
[2020-07-05] MEDS: COLLAGENASE CLOSTRIDIUM HIST. 30 GRAMS TUBE TP SCH (10:09)
[2020-07-05 11:15] VITALS: BP 114/68; PULSE 92
== END 2020-07-05 13:27 | DRG 299 ==
LOC: JER 16:43 → JERBED 20:28 → J5S 06-30 21:31
PROVIDERS: ADMIT Internal Medicine; ATTEND Internal Medicine
PROC: 5A1D70Z Performance of Urinary Filtration, Intermittent, Less than 6 Hours Per Day (ICD-10-PCS; principal; 2020-07-04)
DX: E11.51 Type 2 diabetes mellitus with diabetic peripheral angiopathy without gangrene (principal); N18.6 End stage renal disease; M86.9 Osteomyelitis, unspecified; I12.0 Hypertensive chronic kidney disease with stage 5 chronic kidney disease or end stage renal disease; E11.621 Type 2 diabetes mellitus with foot ulcer; E11.69 Type 2 diabetes mellitus with other specified complication; I25.10 Atherosclerotic heart disease of native coronary artery without angina pectoris; Z95.1 Presence of aortocoronary bypass graft; R74.01 Elevation of levels of liver transaminase levels; Z99.2 Dependence on renal dialysis; K76.0 Fatty (change of) liver, not elsewhere classified; D72.829 Elevated white blood cell count, unspecified; D69.6 Thrombocytopenia, unspecified; R19.7 Diarrhea, unspecified; E66.9 Obesity, unspecified; Z68.33 Body mass index [BMI] 33.0-33.9, adult; E11.22 Type 2 diabetes mellitus with diabetic chronic kidney disease
CPT/HCPCS: 36415; 76705-TC; 80048; 80053; 80076; 82550; 82962; 83735; 84100; 85025; 85027; 85610; 86704; 86706; 86707; 86708; 86709; 87040; 87081; 87324; 87340; 87449; 87517; 97116-GP; 97162-GP; 99285-25; C9803; J1644; U0003

== ENCOUNTER 2020-07-26 16:56 | Inpatient (IN) | payer OTHER, MEDICARE ==
[2020-07-26 17:55] VITALS: BMI 33.5
[2020-07-26] MEDS ORDERED: SODIUM CHLORIDE 500 ML IV STA ×2 (18:13→22:52)
[2020-07-26] MEDS ORDERED: PIPERACILLIN/TAZOB 3.375 GM 3.375 GM in DEXTROSE 5%-WATER - 50 ML IVPB ONE (19:15)
[2020-07-26] MEDS ORDERED: VANCOMYCIN 1 GM in D5W (PRE-DOCKED) 1,000 MG/250 ML IVPB ONE (19:15)
[2020-07-26] MEDS ORDERED: PIPERACILLIN/TAZOB 3.375 GM 3.375 GM/50 ML BAG IVPB ONE (20:35)
[2020-07-26 20:52] LABS: VENOUS O2 SATURATION 49.7 % (70-80); VENOUS PCO2 46.7 mmHg (38-52); VENOUS PH 7.347 (7.310-7.410)
[2020-07-26 20:53] LABS: BASO % 0.6 % (0-2.0); EOS % 1.9 % (0-4.5); HEMATOCRIT 39.1 % (35.4-49); HEMOGLOBIN 12.7 GM/dL (11.7-16.9); LYMPH % 8.7 % (8-40); MCHC 32.6 g/dl (32.0-35.9); MEAN CELL VOLUME 101.1 fl (80-96); MEAN PLT VOLUME 9.1 fl (7.5-11.1); MONO % 10.8 % (3.8-10.2); PLATELET COUNT 181 K/MM3 (134-434); RBC 3.86 M/mm3 (4.00-5.60); RDW 17.9 % (11.9-15.9); WHITE BLOOD COUNT 11.4 K/mm3 (4.0-10.0)
[2020-07-26 20:58] LABS: POTASSIUM 4.6 mmol/L (3.5-5.1)
[2020-07-26 21:00] LABS: CALCIUM 9.2 mg/dL (8.5-10.1)
[2020-07-26 21:01] LABS: ALBUMIN 3.2 g/dl (3.4-5.0); BLOOD UREA NITROGEN 46.1 mg/dL (7-18); INR 1.24 (0.83-1.09); PROTHROMBIN TIME (PATIENT) 14.9 SEC (9.7-13.0)
[2020-07-26 21:03] LABS: ACTIVATED PTT 30.7 SECONDS (25.2-36.5)
[2020-07-26 21:04] LABS: CREATININE 6.9 mg/dL (0.55-1.3)
[2020-07-26 21:05] LABS: BILIRUBIN,TOTAL 0.8 mg/dL (0.2-1); TOT PROT 7.4 g/dl (6.4-8.2)
[2020-07-26] MEDS ORDERED: ONDANSETRON 4 MG/2 ML VIAL IVPUSH ONE (21:17)
[2020-07-26] MEDS ORDERED: ONDANSETRON 4 MG/2 ML VIAL ONE (22:11)
[2020-07-26] MEDS ORDERED: VANCOMYCIN 1 GRAM (PRE-DOCKED) 1,000 MG/250 ML BAG IVPB ONE (22:12)
[2020-07-27] MEDS ORDERED: VANCOMYCIN 1 GM in D5W (PRE-DOCKED) 1,000 MG/250 ML IVPB SCH (02:15)
[2020-07-27] MEDS ORDERED: LOPERAMIDE HCL 2 MG PO PRN (02:59)
[2020-07-27] MEDS ORDERED: NITROGLYCERIN SUBLINGUAL 1/150 0.4 MG TAB SL SCH (03:00)
[2020-07-27] MEDS ORDERED: MINERAL OIL/PETROLAT/WATER TOPICAL CREAM 454 GM JAR TP PRN (03:16)
[2020-07-27] MEDS ORDERED: PIPERACILLIN/TAZOB 2.25 GM 2.25 GM/50 ML BAG IVPB ONE (04:19)
[2020-07-27] MEDS: PIPERACILLIN/TAZOB 2.25 GM 2.25 GM in DEXTROSE 5%-WATER - 50 ML IVPB SCH ×2 (04:22→09:06)
[2020-07-27] MEDS ORDERED: HEPARIN NA (PORCINE) 5,000 UNITS/ML 1ML VIAL ONE ×3 (05:21→22:21)
[2020-07-27] MEDS ORDERED: LOPERAMIDE HCL 2 MG CAPSULE PO PRN (05:45)
[2020-07-27] MEDS: HEPARIN NA (PORCINE) 5,000 UNITS/ML 1ML VIAL SQ SCH ×3 (06:21→22:32)
[2020-07-27] MEDS: INSULIN SLIDING SCALE (NOVOLOG) 1 VIAL SQ SCH ×4 (06:43→22:33)
[2020-07-27 07:12] LABS: BASO % 0.9 % (0-2.0); EOS % 1.4 % (0-4.5); HEMOGLOBIN 13.1 GM/dL (11.7-16.9); LYMPH % 9.7 % (8-40); MCH 33.3 pg (25.7-33.7); MCHC 33.5 g/dl (32.0-35.9); MEAN CELL VOLUME 99.6 fl (80-96); MEAN PLT VOLUME 9.1 fl (7.5-11.1); MONO % 10.3 % (3.8-10.2); NEUT % 77.7 % (42.8-82.8); PLATELET COUNT 162 K/MM3 (134-434); RBC 3.92 M/mm3 (4.00-5.60); RDW 17.7 % (11.9-15.9); WHITE BLOOD COUNT 9.6 K/mm3 (4.0-10.0)
[2020-07-27 07:20] LABS: POTASSIUM 5.2 mmol/L (3.5-5.1)
[2020-07-27 07:29] LABS: ALBUMIN 3.1 g/dl (3.4-5.0); BLOOD UREA NITROGEN 53.5 mg/dL (7-18); CALCIUM 8.9 mg/dL (8.5-10.1)
[2020-07-27 07:31] LABS: PHOSPHOROUS 5.6 mg/dL (2.5-4.9)
[2020-07-27 07:32] LABS: CREATININE 7.3 mg/dL (0.55-1.3)
[2020-07-27] MEDS ORDERED: FAMOTIDINE 20 MG TABLET ONE ×2 (08:31→22:21)
[2020-07-27] MEDS ORDERED: ASPIRIN 81 MG CHEWABLE TABLETS ONE (08:31)
[2020-07-27] MEDS ORDERED: CARVEDILOL 3.125 MG TABLET (FP) ONE ×2 (08:31→22:21)
[2020-07-27] MEDS ORDERED: PIPERACILLIN/TAZOB 3.375 GM 3.375 GM/50 ML BAG IVPB ONE (08:32)
[2020-07-27] MEDS ORDERED: CLOPIDOGREL BISULFATE 75 MG TABLET (FP) ONE (08:32)
[2020-07-27] MEDS: FAMOTIDINE 20 MG TABLET PO SCH ×2 (09:06→22:33)
[2020-07-27] MEDS: SEVELAMER CARBONATE 800 MG TAB (FP) PO SCH ×3 (09:06→18:36)
[2020-07-27] MEDS: CARVEDILOL 3.125 MG TABLET (FP) PO SCH ×2 (09:06→22:32)
[2020-07-27] MEDS ORDERED: PIPERACILLIN/TAZOB 2.25 GM 2.25 GM in DEXTROSE 5%-WATER - 50 ML IVPB SCH (10:00)
[2020-07-27] MEDS ORDERED: CLOPIDOGREL BISULFATE 75 MG TABLET (FP) PO SCH (10:00)
[2020-07-27] MEDS ORDERED: ASPIRIN 81 MG CHEWABLE TABLETS PO SCH (10:00)
[2020-07-27] MEDS ORDERED: COLLAGENASE CLOSTRIDIUM HIST. 30 GRAMS TUBE TP SCH (10:00)
[2020-07-27] MEDS ORDERED: SODIUM CHLORIDE 250 ML IV PRN (10:38)
[2020-07-27] MEDS ORDERED: CEFTRIAXONE 2,000 MG in DEXTROSE 5%-WATER - 50 ML IVPB ONE (13:42)
[2020-07-27] MEDS ORDERED: ERTAPENEM SODIUM 0.5 GM in SODIUM CHLORIDE 50 ML IVPB SCH ×2 (15:00→16:00)
[2020-07-27] MEDS ORDERED: ERTAPENEM SODIUM 1 GM VIAL ONE (15:20)
[2020-07-27 15:46] VITALS: TEMP 98.3
[2020-07-27] MEDS ORDERED: ACETAMINOPHEN 500 MG TABLET (FP) PO ONE (16:12)
[2020-07-27] MEDS ORDERED: diphenhydrAMINE HCL 25 MG CAPSULE (FP) PO ONE ×2 (16:12→16:50)
[2020-07-27] MEDS ORDERED: methylPREDNISolone NA SUCC 40 MG/1 ML VIAL IVPUSH ONE (16:13)
[2020-07-27] MEDS ORDERED: methylPREDNISolone NA SUCC 40 MG/1 ML VIAL ONE (16:51)
[2020-07-27] MEDS ORDERED: ACETAMINOPHEN 500 MG TABLET (FP) ONE (16:53)
[2020-07-27 19:02] VITALS: BP 90/59; PULSE 80
[2020-07-27] MEDS ORDERED: MELATONIN 5 MG TABLETS PO SCH (22:00)
[2020-07-27] MEDS ORDERED: MELATONIN 5 MG TABLETS ONE (22:21)
[2020-07-28] MEDS ORDERED: CALCIUM CHLORIDE 1 GM/10 ML *DISP.SYRIN ONE (01:49)
[2020-07-28] MEDS ORDERED: AMIODARONE HCL 150 MG/3 ML VIAL ONE (02:02)
[2020-07-28] MEDS ORDERED: MIDODRINE HCL 2.5 MG TABLET PO SCH (08:00)
[2020-07-28] MEDS ORDERED: VANCOMYCIN 1 GRAM (PRE-DOCKED) 1,000 MG/250 ML BAG IVPB ONE (22:00)
[2020-07-31] MEDS ORDERED: TENOFOVIR DISOPROXIL FUMARATE 300 MG TABLET PO SCH (08:00)
== END 2020-07-28 02:15 | disposition expired | DRG 871 ==
LOC: JER 16:56 → JERBED 07-27 00:07
PROVIDERS: ADMIT Hospitalist; ATTEND Internal Medicine
PROC: 5A12012 Performance of Cardiac Output, Single, Manual (ICD-10-PCS; principal; 2020-07-27)
DX: A41.9 Sepsis, unspecified organism (principal); N18.6 End stage renal disease; L03.115 Cellulitis of right lower limb; M86.9 Osteomyelitis, unspecified; L03.116 Cellulitis of left lower limb; I12.0 Hypertensive chronic kidney disease with stage 5 chronic kidney disease or end stage renal disease; E78.5 Hyperlipidemia, unspecified; I25.10 Atherosclerotic heart disease of native coronary artery without angina pectoris; I73.9 Peripheral vascular disease, unspecified; E11.69 Type 2 diabetes mellitus with other specified complication; I49.01 Ventricular fibrillation; Z95.1 Presence of aortocoronary bypass graft; E87.70 Fluid overload, unspecified; I95.9 Hypotension, unspecified; R00.0 Tachycardia, unspecified; N25.0 Renal osteodystrophy; E87.5 Hyperkalemia
CPT/HCPCS: 36415; 71045-TC-FY; 80053; 82803; 82962; 83605; 83735; 84100; 84484; 85025; 85610; 85730; 87040; 87804; 93005; 93010; 93971-TC; 99285-25; C9803; J1644; U0003